=== PATIENT | female | born 1935 | race Caucasian/White ===

== ENCOUNTER 2018-08-07 16:49 | Emergency (ER) | payer MEDICARE, OTHER, SELFPAY ==
[2018-08-07 16:51] VITALS: BP 157/64; PULSE 82; RESP 16; TEMP 37.3; O2SAT 94; BMI 26.6
[2018-08-07 16:57] VITALS: BP 157/64; PULSE 82; RESP 16; TEMP 37.3; O2SAT 94
--- NOTE | 2018-08-07 17:17 | ED.VISSUMM ---
- ER Visit Summary Date of Service: 08/07/18 Chief Complaint: Cough, congestion and generalized weakness History of Present Illness: The patient is a 82 F history of prior A. fib not on blood thinners. Patient states for the last several days since Friday she has had a cough and congestion. States the cough is nonproductive. She has had a fever as high as 101 and chills. She denies any nausea, vomiting or diarrhea. No dysuria. No cloudy or bloody urine. States she is able to eat and drink but feels dehydrated. Denies any abdominal pain. States she did get influenza vaccine this year. Physical Examination: Older female no acute distress. Vital signs are stable. Currently her temperature is 997. Her pulse ox 94% on room air no signs of hypoxia. H EENT exam mildly dry mucous membranes. Thick secretions. Posterior pharynx unremarkable. TMs normal. No facial droop. Neck nontender. No lymphadenopathy. No meningismus. Lungs dry coarse breath sounds bilaterally. Dry cough. No rales or rhonchi or wheezing. Heart regular rhythm rate about 80. No murmur. Abdomen soft and nontender. Normal bowel sounds no peritoneal signs. Extremities moving all 4. Neurovascular intact. Calves are nontender without edema or cords. Neurologically she is awake alert with no focal motor deficits. Skin is unremarkable. No petechiae or purpura. No rashes. Test Results: CBC normal white count 11.8. Hemoglobin 13. Electrolytes unremarkable gap of 9. Creatinine 0.9. Influenza test negative. Two-view chest x-ray read both by myself and radiologist shows no acute abnormality. No infiltrate. Emergency Department Course and Treatment: Treated with IV fluids. HEENT exam patient's no significant change at 1830. Went over all of her test results. She will be started on Zithromax for possible bronchitis. Treatment Plan: Fluids and rest. Tylenol for fever. Zithromax daily for 4 more days start tomorrow. Follow-up with your doctor. Return if worse. Disposition: Discharge Impression: Acute bronchitis This note was generated with [employer] dictation software. It may contain incorrect words, spelling, and punctuation that were not noted in review of the chart prior to signing ED Disposition - Plan for ED Patient: Chief Complaint: General Illness Referrals: Antonio Garsia DO [Primary Care Provider] -
[2018-08-07] MEDS: 0.9% Normal Saline 1,000 ML 1000 ML IV (17:26)
--- NOTE | 2018-08-07 17:30 | RAD_ITS ---
STUDY: X-RAY CHEST REASON FOR EXAM: Female, 82 years old. Cough and weakness TECHNIQUE: PA and lateral COMPARISON: December 06, 2013. FINDINGS: Minor scarring at the left lung base. No acute infiltration. There is no demonstrated pleural abnormality. Normal size heart. Normal mediastinum and ruben. Normal visualized pulmonary arteries. Mildly calcified aortic arch and descending thoracic aorta. Normal visualized thoracic spine. Normal visualized ribs, clavicles, and shoulders. There is no demonstrated abnormality of the visualized soft tissue structures of the upper abdomen. No significant change since prior exam RAD/Chest PA and Lateral IMPRESSION: No acute cardiopulmonary pathology Electronically Signed: Willie Coppola MD at 18:11 EST , Service support ,
[2018-08-07 17:36] LABS: Absolute Lymphocyte Count 1.24 X10^3/ul (0.83-4.51); Absolute Neutrophil Count 9.4 X10^3/uL (2.0-7.7); Anion Gap 9 (5-15); BUN 14 mg/dL (7-18); BUN/Creat Ratio 14.3 RATIO (10-20); Basophil# 0.03 X10^3/uL; Basophil% 0.3 % (0-1); Calcium,Total 8.9 mg/dL (8.5-10.1); Chloride 100 mmol/L (98-107); Creatinine, Serum 0.98 mg/dL (0.55-1.02); EST Glomerular Filtration Rate 58 mL/min (>60); Eosinophil# 0.09 X10^3/uL; Eosinophils% 0.8 % (0-5); Est Glom Filt Rate - Afr Amer 70 mL/min (>60); Estimated Creatinine Clearance 44.52 ml/min; Glucose 117 mg/dL (74-106); Hematocrit 41.1 % (37-47); Hemoglobin 13.1 g/dl (12.0-15.0); Lymphocyte # 1.24 X10^3/ul (4.0); Lymphocyte % 10.5 % (19-41); Mean Corp Hgb Conc 31.9 g/gl (32-36); Mean Corpuscular Volume 84.7 fL (81-99); Mean Platelet Vol. 9.6 fl (6.2-12.0); Monocyte# 1.05 X10^3/uL; Monocyte% 8.9 % (0-10); Neutrophil # 9.36 X10^3/uL (2.7-7.7); Neutrophil % 79.4 % (47-70); Platelet Count 291 K/mm3 (150-450); Potassium 3.9 mmol/L (3.5-5.1); RBC Distribution Width CV 14.2 % (11.6-14.6); RBC Distribution Width SD 43.6 fl (35.1-43.9); Red Blood Count 4.85 M/mm3 (4.2-5.4); Sodium Level 138 mmol/L (136-145); White Blood Count 11.8 K/mm3 (4.4-11.0)
[2018-08-07 17:39] LABS: POSITIVE COUNT NO; POSITIVE DIFFERENTIAL NO; POSITIVE MORPHOLOGY NO
--- NOTE | 2018-08-07 18:34 | ED.DEP ---
ED Disposition - Plan for ED Patient: Disposition: Home or Assisted Living Chief Complaint: General Illness Instructions: Acute Bronchitis Prescriptions: Azithromycin [Zithromax] 250 mg PO DAILY #4 tab Referrals: Antonio Garsia DO [Primary Care Provider] - 3-5 Days if not improving Additional Instructions: Plenty of fluids and rest. Tylenol for fever. Zithromax 1 pill a day for 4 more days starting tomorrow. Return if feeling worse. Follow-up with your doctor.
[2018-08-07] MEDS: Acetaminophen 500 MG Tablet 1000 MG PO (18:35)
[2018-08-07 18:36] VITALS: BP 166/71; PULSE 78; RESP 18; TEMP 37.7; O2SAT 94
[2018-08-07] MEDS: Azithromycin 250 MG Tablet 500 MG PO (19:02)
[2018-08-07 19:08] VITALS: BP 171/46; PULSE 81; RESP 20; TEMP 37.7; O2SAT 94
[2018-08-07 20:22] VITALS: BP 168/67; PULSE 82; RESP 21; O2SAT 95
== END 2018-08-07 20:24 | disposition home or self-care (01) ==
PROVIDERS: Emergency Provider Emergency Medicine; PCP Family Medicine
DX: J20.9 Acute bronchitis, unspecified (principal); I48.91 Unspecified atrial fibrillation; Z79.82 Long term (current) use of aspirin; Z79.899 Other long term (current) drug therapy
CPT/HCPCS: 71046; 80048; 85025; 87804; 96360; 96361; 99285; J7030; A4216

== ENCOUNTER 2018-08-09 08:51 | Inpatient (IN) | payer MEDICARE, OTHER, SELFPAY ==
[2018-08-09] VITALS (21 sets, daily range): BP systolic 140–201; BP diastolic 4–75; PULSE 82–97; RESP 16–22; TEMP 36.8–38.6; O2SAT 91–96; BMI 27.9; BMI 26.7; BMI 26.8
--- NOTE | 2018-08-09 09:03 | EKG12_ITS ---
Test Reason : SOB Blood Pressure : / mmHG Vent. Rate : 092 BPM Atrial Rate : 092 BPM P-R Int : 166 ms QRS Dur : 090 ms QT Int : 330 ms P-R-T Axes : 039 021 044 degrees QTc Int : 408 ms Normal sinus rhythm Nonspecific ST and T wave abnormality Abnormal ECG Confirmed by BRITTNY LARA, IRWIN ([id number]), avid editor MARV MARINELLI ([id number]) on 08/11/2018 9:14:04 AM Referred By: MIRYAM Confirmed By:IRWIN MART MD
--- NOTE | 2018-08-09 09:06 | ED.VISSUMM ---
- ER Visit Summary Date of Service: 08/09/18 Chief Complaint: [] Body aches harsh cough sore throat decreased p.o. intake since seen Friday History of Present Illness: The patient is a 82 F [] history of A. fib on digoxin, reports she developed body aches sore throat harsh cough, symptoms persisted she was seen Friday in the emergency department workup was generally negative, indicates she had flu vaccination, indicates for the last 24 hours she has had worsening cough shortness of breath sore throat where she cannot take much by mouth she is debilitated in bed from the fever and the body aches presents for evaluation, no diarrhea or constipation normal urinary habits no skin rashes Physical Examination: [] 190/70, 91% room air, 99 temp General, no distress resting comfortably HEENT is generally unremarkable The neck is supple no adenopathy Cardiovascular, regular rate and rhythm Lungs, clear bilateral Abdomen, soft nontender Extremities, no clubbing cyanosis or edema Neurologic, awake alert answering questions appropriately moving all 4 extremities Test Results: [] Emergency Department Course and Treatment: [] Given her complaints screening labs IV fluids, the patient studies are all generally unremarkable except for a white count of 17,000, the respiratory viral panel is not available yet, the flu screen rapid and strep screen rapid were negative she received IV fluid fever control she continues to complain of diffuse body aches does not believe she can function at home given all the above have asked the hospital see her further management additionally she did try outpatient management which has failed Treatment Plan: [] Disposition: [] Home stable Impression: [] Influenza type illness, harsh cough diffuse body aches failed outpatient therapy This note was generated with [employer] dictation software. It may contain incorrect words, spelling, and punctuation that were not noted in review of the chart prior to signing ED Disposition - Plan for ED Patient: Chief Complaint: Shortness of Breath Referrals: Antonio Garsia DO [Primary Care Provider] -
--- NOTE | 2018-08-09 09:10 | RAD_ITS ---
STUDY: X-RAY CHEST REASON FOR EXAM: Female, 82 years old. Fever and body aches TECHNIQUE: AP COMPARISON: 08/07/2018 FINDINGS: EKG leads project over the chest. The lungs are clear and expanded. There is no demonstrated pleural abnormality. Normal size heart. Normal mediastinum and ruben. Normal visualized pulmonary arteries. There is atherosclerotic calcification of the aortic arch with tortuosity. No acute bony process. There is no demonstrated abnormality of the visualized soft tissue structures of the upper abdomen. RAD/Chest 1 View (Portable) IMPRESSION: 1. No acute cardiopulmonary process Electronically Signed: Bal Jade MD at 9:26 EST , Service support ,
[2018-08-09] MEDS: Acetaminophen 500 MG Tablet 1000 MG PO (09:22)
[2018-08-09] MEDS: Ipratropium/Albuterol Sulfate 3 ML AMPUL.NEB INHALATION ×3 (09:23→19:12)
[2018-08-09 09:29] LABS: Absolute Lymphocyte Count 1.48 X10^3/ul (0.83-4.51); Absolute Neutrophil Count 14.6 X10^3/uL (2.0-7.7); Basophil# 0.04 X10^3/uL; Basophil% 0.2 % (0-1); Differential Indicated SCAN CRITERIA MET; Eosinophil# 0.17 X10^3/uL; Eosinophils% 0.9 % (0-5); Hematocrit 41.6 % (37-47); Hemoglobin 13.6 g/dl (12.0-15.0); Lymphocyte # 1.48 X10^3/ul (4.0); Lymphocyte % 8.3 % (19-41); Mean Corp Hgb Conc 32.7 g/gl (32-36); Mean Corpuscular Hgb 27.5 pg (27.0-32.0); Mean Platelet Vol. 9.3 fl (6.2-12.0); Monocyte# 1.56 X10^3/uL; Monocyte% 8.7 % (0-10); Neutrophil # 14.62 X10^3/uL (2.7-7.7); Neutrophil % 81.7 % (47-70); POSITIVE COUNT NO; POSITIVE DIFFERENTIAL YES; POSITIVE MORPHOLOGY NO; Platelet Count 286 K/mm3 (150-450); RBC Distribution Width CV 14.4 % (11.6-14.6); RBC Distribution Width SD 44.4 fl (35.1-43.9); Red Blood Count 4.95 M/mm3 (4.2-5.4); White Blood Count 17.9 K/mm3 (4.4-11.0)
[2018-08-09 09:36] LABS: Anion Gap 12 (5-15); BUN 14 mg/dL (7-18); BUN/Creat Ratio 14.8 RATIO (10-20); Calcium,Total 9.2 mg/dL (8.5-10.1); Chloride 99 mmol/L (98-107); Creatinine, Serum 0.95 mg/dL (0.55-1.02); EST Glomerular Filtration Rate 60 mL/min (>60); Est Glom Filt Rate - Afr Amer 73 mL/min (>60); Estimated Creatinine Clearance 45.93 ml/min; Glucose 115 mg/dL (74-106); Potassium 3.8 mmol/L (3.5-5.1); Sodium Level 138 mmol/L (136-145)
[2018-08-09 09:59] LABS: BNP,B-Type NATRIURETIC PEPTIDE 197.1 pg/mL (0-100)
[2018-08-09 10:44] LABS: Digoxin Level 0.62 ng/mL (0.80-2.00)
[2018-08-09 10:50] LABS: Bacteria 0 SEEN /hpf (None Seen); Mucous, Urine 0 SEEN /hpf (<or=2+)
[2018-08-09 11:05] LABS: Color, Urine Yellow (Yellow); Glucose, Dipstick Normal (Normal); Ketone-Dipstick 15 mg/dl (Negative); Leukocyte Esterase-Dipstick 100 /ul (Negative); Nitrite-Dipstick Negative (Negative); Occult Blood-Urine 10 /ul (Negative); Protein-Dipstick 15 mg/dl (Negative); Urine Bilirubin Dipstick Negative (Negative); Urine Clarity Sl. Cloudy (Clear); Urine Urobilinogen Normal (Normal)
[2018-08-09 11:16] LABS: Red Blood Cells-Urine 0-5 SEEN /hpf (0-5); Squamous Epithelial Cells - UA 0-5 SEEN /hpf (5-10); White Blood Cells 10-25 SEEN /hpf (0-5)
--- NOTE | 2018-08-09 11:18 | NURSING ---
DR SYEDA SMALLWOOD
--- NOTE | 2018-08-09 11:25 | NURSING ---
MED SURG INFLUENZA TYPE ILLNESS, HARSH COUGH, FAILED OP THEREPY SEMENTI OBS
--- NOTE | 2018-08-09 12:30 | NURSING ---
call from [facility] reporting respiratory panel positive for RSV-B. primary RN and MD notified
[2018-08-09 13:20] LABS: CPK Total, Creatine Kinase 98 U/L (26-192)
[2018-08-09] MEDS: Metoprolol(XL)Succ 25 MG Tablet PO (14:10)
[2018-08-09] MEDS: Digoxin 125 MCG Tablet PO (14:10)
[2018-08-09] MEDS: Aspirin 81 MG TAB.CHEW PO (14:10)
[2018-08-09] MEDS: Pantoprazole Sodium 40 MG Tablet PO (14:10)
[2018-08-09] MEDS: guaiFENesin Dm 10 ML UDC PO (15:01)
[2018-08-09] MEDS: Acetaminophen 325 MG Tablet 650 MG PO (15:39)
--- NOTE | 2018-08-09 18:14 | HP.PCM_ITS ---
History of Present Illness Date of Admission: 08/09/18 Chief Complaint: Myalgias, sore throat, cough, rhinorrhea The patient is a 82 year old F with a past medical history of hypertension, paroxysmal atrial fibrillation and frequent ventricular ectopy presented to the emergency department at [facility] on 08/09/2018 complaining of cough, rhinorrhea, myalgias and arthralgias and sore throat. No signs of presentation to the emergency room are temperature 99, pulse rate 88, blood pressure 197/70, respiratory rate 22 and she was 91% saturated. She was 94% on a 2 L nasal cannula. White blood cell count was elevated at 17.9 with a left shift. Hemoglobin is 13.6 and the platelets are within normal limits. Electrolytes are within normal limits and the BUN is 14 with a creatinine of 0.95. Actiq acid is 1.0. Protein was less than 0.015 and the total creatine kinase is 98. UA shows no infiltrates, pulmonary vascular congestion or pleural effusions. Strep is negative. Panel is positive for RSV B. Show 10-25 white blood cells bacteria. It was nitrite negative. Dig level was 0.62. To the hospital with a diagnosis of acute viral syndrome secondary to RSV B infection. Past Medical History Past Medical History (Chronic Problems): Chronic Problems Ventricular ectopy (Chronic) Paroxysmal atrial fibrillation (Chronic) Hypertension (Chronic) Allergies bee venom protein (honey bee) Allergy (Verified 08/09/18 08:57) Anaphylaxis also wasps latex Allergy (Verified 08/09/18 08:57) Rash Penicillins Allergy (Verified 08/09/18 08:57) Rash Home Medications: Ambulatory Orders Medication Instructions Recorded Aspirin [Aspirin, Baby] 81 mg PO DAILY@0800 12/06/13 Cholecalciferol (Vitamin D3) 2,000 unit PO DAILY 12/06/13 [Vitamin D] Digoxin [Digox] 125 mcg PO DAILY 12/06/13 Metoprolol(XL)Succ [Toprol Xl 25 mg PO DAILY 12/06/13 (Beta Vishal)] Multivitamins,Therapeutic 1 tablet PO DAILY 12/06/13 [Multivitamin] Pantoprazole Sodium [Protonix] 40 mg PO DAILY 12/06/13 Melatonin 10 mg PO QHS 01/15/17 Azithromycin [Zithromax] 250 mg PO DAILY #4 tab 08/07/18 [place]-3 Fatty Acids [Fish Oil] 500 mg PO DAILY 08/09/18 Surgical History: cataract - Bilateral, hysterectomy - With bilateral salpingo- oophorectomy, - - Surgery on the left knee to repair a torn meniscus and fractured tibial plateau Psychiatric History: No pertinent psych hx [employer] History: - - She had a remote ectopic and ovarian cysts and subsequently underwent a total hysterectomy Lives: Spouse/ Significant Other Smoking Status: Never smoker Tobacco Use: Non-smoker Alcohol: Rare Drugs: None - *Family History Maternal History Items: No pertinent history Review of Systems Constitutional: Reports: Anorexia, Malaise, Fatigue. Denies: Chills, Fever, Weight Change Eyes: Denies: Blurred vision, Redness HEENT: Reports: Head Aches, Post Nasal Drip, Sore Throat, - - Clear rhinorrhea. Denies: Sinus Congestion, Sinus Drainage Cardiovascular: Denies: Chest Pain, Heaviness, Light Headedness, Palpitations Respiratory: Reports: Cough, Shortness of breath at rest. Denies: Hemoptysis, Pleuritic Pain, Sputum production Gastrointestinal: Denies: Abdominal Pain, Diarrhea, Nausea, Vomiting Genitourinary: Denies: Dysuria Musculoskeletal: Reports: Joint Pain, Joint Tenderness. Denies: Joint swelling, Neck Pain Skin: Denies: Jaundice, Rash, Wounds Neurological: Denies: Numbness, Tingling, Focal weakness Psychiatric: Denies: Anxiety, Depression, Homicidal Ideations, Suicidal Ideations Endocrine: Denies: Change in Body Habitus Hematologic/ Lymphatic: Denies: Easy Bruising, Easy Bleeding, Hx of blood clot VTE Information - Inpt Only VTE Present on Admission: No VTE Mechan Device Prophylaxis: SCD's, Knee High [place] Hose VTE Pharm Prophylaxis ordered?: Yes - Physical Exam General: Alert, Oriented x3, Cooperative, Well developed, Well nourished HEENT: Atraumatic, PERRLA, EOMI, Normocephalic Oral: Dry Mucosa Neck: Supple, No JVD, Negative Carotid Bruits Lungs: Clear to auscultation, Normal air movement Cardiovascular: Regular rate, Regular Rhythm, Normal S1, Normal S2, No murmurs, No rub noted, No Gallop Abdomen: Bowel Sounds Present, Soft, Non Tender, Non-Distended Extremities: No clubbing, No cyanosis, No edema, Capillary Refill Less than 3 Seconds, Peripheral Pulses Normal Skin: No rashes, No breakdown Musculoskeletal: - - No red, swollen or warm to touch joints Neurological: Cranial nerves II-XII grossly intact, Neuro grossly intact Psych/Mental Status: Normal Affect, Appropriate Vital Signs Temp Pulse Resp BP Pulse Ox 100.4 F H 92 22 H 156/66 H 96 08/09/18 15:13 08/09/18 15:43 08/09/18 13:33 08/09/18 12:44 08/09/18 13:33 Oxygen Flow Rate (L/min) 2 Oxygen Delivery Method Nasal Cannula Weight: 171 lb Body Mass Index (BMI) 26.7 Finger Stick Blood Glucose 121 Intake and Output for Last 24 Hours 08/07/18 08/08/18 08/09/18 23:59 23:59 23:59 Intake Total 500 / 500 Balance 500 / 500 Microbiology Past 72 Hours 08/09/18 09:20 Respiratory Panel (PCR) - Final Mucosa - Nose 08/09/18 09:20 Group A Streptococcus Rapid Screen - Preliminary Mucosa - Throat 08/09/18 09:20 Influenza Types A,B Direct FA (VIK) - Final Mucosa - Nose Laboratory Tests Past 24 Hrs 08/09/18 08/09/18 08/09/18 09:10 09:10 09:10 WBC 17.9 H RBC 4.95 Hgb 13.6 Hct 41.6 MCV 84.0 MCH 27.5 MCHC 32.7 RDW 14.4 RDW Differential 44.4 H Plt Count 286 MPV 9.3 Immature Gran % (Auto) 0.200 Neut % (Auto) 81.7 H Lymph % (Auto) 8.3 L [place] % (Auto) 8.7 Eos % (Auto) 0.9 Baso % (Auto) 0.2 Absolute Neuts (auto) 14.6 H Absolute Lymphs (auto) 1.48 Total Counted Not Reportable Diff Path Review May foll Sodium 138 Potassium 3.8 Chloride 99 Carbon Dioxide 27.0 Anion Gap 12 BUN 14 Creatinine 0.95 Estim Creat Clear Calc 45.93 Est GFR (MDRD) Af Amer 73 Est GFR (MDRD) Non-Af 60 BUN/Creatinine Ratio 14.8 Glucose 115 H Lactic Acid Calcium 9.2 Total Creatine Kinase Troponin I < 0.015 B-Natriuretic Peptide 197.1 H Urine Color Urine Clarity Urine pH Ur Specific [place] Urine Protein Urine Glucose (UA) Urine Ketones Urine Occult Blood Urine Nitrite Urine Bilirubin Urine Urobilinogen Ur Leukocyte Esterase Urine RBC Urine WBC Ur Squamous Epith Cells Urine Bacteria Urine Mucus Digoxin 08/09/18 08/09/18 08/09/18 09:10 10:45 12:45 WBC RBC Hgb Hct MCV MCH MCHC RDW RDW Differential Plt Count MPV Immature Gran % (Auto) Neut % (Auto) Lymph % (Auto) [place] % (Auto) Eos % (Auto) Baso % (Auto) Absolute Neuts (auto) Absolute Lymphs (auto) Total Counted Diff Path Review Sodium Potassium Chloride Carbon Dioxide Anion Gap BUN Creatinine Estim Creat Clear Calc Est GFR (MDRD) Af Amer Est GFR (MDRD) Non-Af BUN/Creatinine Ratio Glucose Lactic Acid Calcium Total Creatine Kinase 98 Troponin I B-Natriuretic Peptide Urine Color Yellow Urine Clarity Sl. Cloudy Urine pH 6.0 Ur Specific [place] 1.010 Urine Protein 15 H Urine Glucose (UA) Normal Urine Ketones 15 H Urine Occult Blood 10 H Urine Nitrite Negative Urine Bilirubin Negative Urine Urobilinogen Normal Ur Leukocyte Esterase 100 H Urine RBC 0-5 SEEN Urine WBC 10-25 SEEN Ur Squamous Epith Cells 0-5 SEEN Urine Bacteria 0 SEEN Urine Mucus 0 SEEN Digoxin 0.62 L 08/09/18 12:45 WBC RBC Hgb Hct MCV MCH MCHC RDW RDW Differential Plt Count MPV Immature Gran % (Auto) Neut % (Auto) Lymph % (Auto) [place] % (Auto) Eos % (Auto) Baso % (Auto) Absolute Neuts (auto) Absolute Lymphs (auto) Total Counted Diff Path Review Sodium Potassium Chloride Carbon Dioxide Anion Gap BUN Creatinine Estim Creat Clear Calc Est GFR (MDRD) Af Amer Est GFR (MDRD) Non-Af BUN/Creatinine Ratio Glucose Lactic Acid 1.0 Calcium Total Creatine Kinase Troponin I B-Natriuretic Peptide Urine Color Urine Clarity Urine pH Ur Specific [place] Urine Protein Urine Glucose (UA) Urine Ketones Urine Occult Blood Urine Nitrite Urine Bilirubin Urine Urobilinogen Ur Leukocyte Esterase Urine RBC Urine WBC Ur Squamous Epith Cells Urine Bacteria Urine Mucus Digoxin Assessment/Plan All Active Problems Dehydration (Acute) Elevated serum creatinine (Acute) Syncope (Acute) Sessions 1. Acute viral syndrome secondary to RSV B infection 2. Leukocytosis-significance questionable. May be secondary to stress. Pneumonia on the chest x-ray. Patient has white blood cells in her urine but this is a clean-catch urine and she is asymptomatic. There was no bacteria and it was nitrite negative. 3. History of paroxysmal atrial fibrillation 4. Hypertension rocephin 1 g IV daily - recheck the CBC in the AM and if the leukocytosis has resolved will DC the antibiotic. Throat culture sent Ibuprofen and Tylenol for headache and muscle pain Aerosols every 6 hours because she tells me tht she felt better in the ED after an aerosol BUT, per the ED doc's note her lungs were CTA Lovenox, SCDs and [place] hose for DVT prophylaxis Robitussin-DM as needed dry cough Guaifenesin 1200 mg p.o. twice daily Recheck lab in the a.m. Code Visit OBSV E&M: [id number] Initial observation care L2
[2018-08-09] MEDS: Ibuprofen 600 MG Tablet PO (18:19)
[2018-08-09] MEDS: MELATONIN 10 MG TABLET PO (21:54)
[2018-08-09] MEDS: guaiFENesin 1,200 MG Tablet 1200 MG PO (21:54)
[2018-08-10] VITALS (16 sets, daily range): BP systolic 118–154; BP diastolic 61–81; PULSE 73–109; RESP 16–18; TEMP 36.8–37.1; O2SAT 91–96
[2018-08-10] MEDS: Ibuprofen 600 MG Tablet PO ×3 (04:22→18:04)
[2018-08-10] MEDS: guaiFENesin Dm 10 ML UDC PO (04:23)
[2018-08-10] MEDS: Ipratropium/Albuterol Sulfate 3 ML AMPUL.NEB INHALATION ×3 (07:10→19:14)
[2018-08-10 08:00] LABS: Absolute Lymphocyte Count 2.49 X10^3/ul (0.83-4.51); Absolute Neutrophil Count 12.6 X10^3/uL (2.0-7.7); Basophil# 0.03 X10^3/uL; Basophil% 0.2 % (0-1); Eosinophil# 0.06 X10^3/uL; Eosinophils% 0.4 % (0-5); Hematocrit 38.5 % (37-47); Hemoglobin 12.3 g/dl (12.0-15.0); Lymphocyte # 2.49 X10^3/ul (4.0); Mean Corp Hgb Conc 31.9 g/gl (32-36); Mean Corpuscular Hgb 26.6 pg (27.0-32.0); Mean Corpuscular Volume 83.3 fL (81-99); Mean Platelet Vol. 9.3 fl (6.2-12.0); Monocyte# 1.44 X10^3/uL; Monocyte% 8.7 % (0-10); Neutrophil # 12.56 X10^3/uL (2.7-7.7); Neutrophil % 75.6 % (47-70); POSITIVE COUNT NO; POSITIVE DIFFERENTIAL NO; POSITIVE MORPHOLOGY NO; Platelet Count 241 K/mm3 (150-450); RBC Distribution Width CV 14.4 % (11.6-14.6); RBC Distribution Width SD 44.2 fl (35.1-43.9); Red Blood Count 4.62 M/mm3 (4.2-5.4); White Blood Count 16.6 K/mm3 (4.4-11.0)
[2018-08-10] MEDS: Multivitamins,Therapeutic Tablet 1 TABLET PO (08:30)
[2018-08-10] MEDS: Aspirin 81 MG TAB.CHEW PO (08:36)
--- NOTE | 2018-08-10 08:43 | PCM.PN.HOSP ---
Subjective: Feels a little better, but is still coughing. No fevers, chills. No issues overnight Vitals/I&O's: Vital Signs Temp Pulse Resp BP Pulse Ox 98.6 F 82 16 154/81 H 91 08/10/18 04:15 08/10/18 07:10 08/10/18 07:10 08/10/18 04:15 08/10/18 07:10 Oxygen Flow Rate (L/min) 2 Oxygen Delivery Method Room Air Weight: 171 lb Body Mass Index (BMI) 26.7 Finger Stick Blood Glucose 121 Intake and Output for Last 24 Hours 08/08/18 08/09/18 08/10/18 23:59 23:59 23:59 Intake Total 800 / 800 240 / 240 Balance 800 / 800 240 / 240 General: Alert, Oriented x3, Cooperative, No apparent distress HEENT: Atraumatic, EOMI, Normocephalic Oral: Moist Mucosa Neck: Supple, No JVD Lungs: Clear to auscultation, Normal air movement, No rhonchi, No wheeze, No rales, Diminished Cardiovascular: Regular rate, Regular Rhythm, Normal S1, Normal S2, No murmurs, No rub noted, No Gallop Abdomen: Soft, Non Tender, Non-Distended, No Hepato-splenomegaly Extremities: No edema, Capillary Refill Less than 3 Seconds Skin: No rashes, No breakdown Neurological: Neuro grossly intact, Sensory exam intact to light touch and pain Psych/Mental Status: Normal Affect, Appropriate Microbiology Past 72 Hours 08/09/18 09:20 Mucosa - Nose Respiratory Panel (PCR) - Final 08/09/18 09:20 Mucosa - Throat Group A Streptococcus Rapid Screen - Preliminary 08/09/18 09:20 Mucosa - Nose Influenza Types A,B Direct FA (VIK) - Final Laboratory Results 08/09/18 09:10: WBC 17.9 H, RBC 4.95, Hgb 13.6, Hct 41.6, MCV 84.0, MCH 27.5, MCHC 32.7, RDW 14.4, RDW Differential 44.4 H, Plt Count 286, MPV 9.3, Immature Gran % (Auto) 0.200, Neut % (Auto) 81.7 H, Lymph % (Auto) 8.3 L, [place] % (Auto) 8.7, Eos % (Auto) 0.9, Baso % (Auto) 0.2, Absolute Neuts (auto) 14.6 H, Absolute Lymphs (auto) 1.48, Total Counted Not Reportable, Diff Path Review December08/09/18 09:10: Sodium 138, Potassium 3.8, Chloride 99, Carbon Dioxide 27.0, Anion Gap 12, BUN 14, Creatinine 0.95, Estim Creat Clear Calc 45.93, Est GFR (MDRD) Af Amer 73, Est GFR (MDRD) Non-Af 60, BUN/Creatinine Ratio 14.8, Glucose 115 H, Calcium 9.2, Troponin I < 0.015 08/09/18 09:10: B-Natriuretic Peptide 197.1 H 08/09/18 09:10: Digoxin 0.62 L 08/09/18 10:45: Urine Color Yellow, Urine Clarity Sl. Cloudy, Urine pH 6.0, Ur Specific [place] 1.010, Urine Protein 15 H, Urine Glucose (UA) Normal, Urine Ketones 15 H, Urine Occult Blood 10 H, Urine Nitrite Negative, Urine Bilirubin Negative, Urine Urobilinogen Normal, Ur Leukocyte Esterase 100 H, Urine RBC 0-5 SEEN, Urine WBC 10-25 SEEN, Ur Squamous Epith Cells 0-5 SEEN, Urine Bacteria 0 SEEN, Urine Mucus 0 SEEN 08/09/18 12:45: Total Creatine Kinase 98 08/09/18 12:45: Lactic Acid 1.0 08/10/18 07:50: WBC 16.6 H, RBC 4.62, Hgb 12.3, Hct 38.5, MCV 83.3, MCH 26.6 L, MCHC 31.9 L, RDW 14.4, RDW Differential 44.2 H, Plt Count 241, MPV 9.3, Immature Gran % (Auto) 0.100, Neut % (Auto) 75.6 H, Lymph % (Auto) 15.0 L, [place] % (Auto) 8.7, Eos % (Auto) 0.4, Baso % (Auto) 0.2, Absolute Neuts (auto) 12.6 H, Absolute Lymphs (auto) 2.49, Total Counted Not Reportable Current Medications Acetaminophen (Tylenol) 650 mg PO Q4H PRN PRN PRN Reason: FEVER Last Admin: 08/09/18 15:39 Dose: 650 mg Albuterol Sulfate (Ventolin Aerosols) 2.5 mg INHALATION Q2H PRN PRN Reason: WHEEZING Albuterol/Ipratropium (Duoneb) 3 ml INHALATION Q6HWA.RT [facility] Last Admin: 08/10/18 07:10 Dose: 3 ml Aspirin (Aspirin, Baby) 81 mg PO DAILY@0800 [facility] Last Admin: 08/10/18 08:36 Dose: 81 mg Cholecalciferol (Vitamin D) 2,000 unit PO DAILY [facility] Digoxin (Lanoxin) 125 mcg PO DAILY [facility] Last Admin: 08/09/18 14:10 Dose: 125 mcg Enoxaparin Sodium (Lovenox) 40 mg SC DAILY@1000 [facility] Guaifenesin (Mucinex) 1,200 mg PO BID [facility] Last Admin: 08/09/18 21:54 Dose: 1,200 mg Guaifenesin (Robitussin Dm) 5 - 10 ml PO Q4H PRN PRN Reason: COUGH Last Admin: 08/10/18 04:23 Dose: 10 ml Sodium Chloride () 500 mls @ 999 mls/hr IV .Q31M ONE Last Admin: 08/09/18 09:23 Dose: 999 mls/hr Ceftriaxone Sodium (Rocephin) 1 gm in 50 mls @ 100 mls/hr IV Q24 [facility] Ibuprofen (Motrin) 600 mg PO Q6H PRN PRN PRN Reason: MILD PAIN (1-3/10) Last Admin: 08/10/18 04:22 Dose: 600 mg Magnesium Hydroxide (Milk Of Magnesia) 30 ml PO DAILY PRN PRN PRN Reason: Constipation Melatonin (Melatonin) 10 mg PO QHS [facility] Last Admin: 08/09/18 21:54 Dose: 10 mg Metoprolol Succinate (Toprol Xl (Beta Vishal)) 25 mg PO DAILY [facility] Last Admin: 08/09/18 14:10 Dose: 25 mg [facility]ivit[facility] ([facility]ivitamin) [facility] Last Admin: 08/10/18 08:30 Dose: 1 tablet Nutritional Formula (Lactose Free) (Ensure Enlive) 120 ml PO 4X/DAY [facility] Last Admin: 08/09/18 21:54 Dose: 120 ml Pantoprazole Sodium (Protonix) 40 mg PO DAILY [facility] Last Admin: 08/09/18 14:10 Dose: 40 mg Sodium Chloride () 5 - 15 ml IV UD PRN PRN Reason: SALINE FLUSH Medical Necessity - Tobacco Use Smoking Status: Never smoker Tobacco Use: Non-smoker Assessment/Plan All Active Problems Dehydration (Acute) Elevated serum creatinine (Acute) Syncope (Acute) 1. Acute viral syndrome secondary to RSV B infection/leukocytosis -No pneumonia evident on chest x-ray -Afebrile, leukocytosis has improved slightly from 17.9 on admission to 16.6 -She is currently on Rocephin given her leukocytosis, we will switch to Levaquin for atypical coverage -Continue with breathing treatments, which she states help -Continue with Mucinex 2. Paroxysmal A. fib/hypertension -Currently stable, on aspirin -Continue with metoprolol 3. GERD -Stable -Continue with PPI DVT: Lovenox Code Visit Inpatient E&M: 80844 Subs Hosp L2
--- NOTE | 2018-08-10 08:52 | PN_ITS ---
Subjective: Feels a little better, but is still coughing. No fevers, chills. No issues overnight Vitals/I&O's: Vital Signs Temp Pulse Resp BP Pulse Ox 98.6 F 82 16 154/81 H 91 08/10/18 04:15 08/10/18 07:10 08/10/18 07:10 08/10/18 04:15 08/10/18 07:10 Oxygen Flow Rate (L/min) 2 Oxygen Delivery Method Room Air Weight: 171 lb Body Mass Index (BMI) 26.7 Finger Stick Blood Glucose 121 Intake and Output for Last 24 Hours 08/08/18 08/09/18 08/10/18 23:59 23:59 23:59 Intake Total 800 / 800 240 / 240 Balance 800 / 800 240 / 240 General: Alert, Oriented x3, Cooperative, No apparent distress HEENT: Atraumatic, EOMI, Normocephalic Oral: Moist Mucosa Neck: Supple, No JVD Lungs: Clear to auscultation, Normal air movement, No rhonchi, No wheeze, No rales, Diminished Cardiovascular: Regular rate, Regular Rhythm, Normal S1, Normal S2, No murmurs, No rub noted, No Gallop Abdomen: Soft, Non Tender, Non-Distended, No Hepato-splenomegaly Extremities: No edema, Capillary Refill Less than 3 Seconds Skin: No rashes, No breakdown Neurological: Neuro grossly intact, Sensory exam intact to light touch and pain Psych/Mental Status: Normal Affect, Appropriate Microbiology Past 72 Hours 08/09/18 09:20 Mucosa - Nose Respiratory Panel (PCR) - Final 08/09/18 09:20 Mucosa - Throat Group A Streptococcus Rapid Screen - Preliminary 08/09/18 09:20 Mucosa - Nose Influenza Types A,B Direct FA (VIK) - Final Laboratory Results 08/09/18 09:10: WBC 17.9 H, RBC 4.95, Hgb 13.6, Hct 41.6, MCV 84.0, MCH 27.5, MCHC 32.7, RDW 14.4, RDW Differential 44.4 H, Plt Count 286, MPV 9.3, Immature Gran % (Auto) 0.200, Neut % (Auto) 81.7 H, Lymph % (Auto) 8.3 L, [place] % (Auto) 8.7, Eos % (Auto) 0.9, Baso % (Auto) 0.2, Absolute Neuts (auto) 14.6 H, Absolute Lymphs (auto) 1.48, Total Counted Not Reportable, Diff Path Review December08/09/18 09:10: Sodium 138, Potassium 3.8, Chloride 99, Carbon Dioxide 27.0, Anion Gap 12, BUN 14, Creatinine 0.95, Estim Creat Clear Calc 45.93, Est GFR (MDRD) Af Amer 73, Est GFR (MDRD) Non-Af 60, BUN/Creatinine Ratio 14.8, Glucose 115 H, Calcium 9.2, Troponin I < 0.015 08/09/18 09:10: B-Natriuretic Peptide 197.1 H 08/09/18 09:10: Digoxin 0.62 L 08/09/18 10:45: Urine Color Yellow, Urine Clarity Sl. Cloudy, Urine pH 6.0, Ur Specific [place] 1.010, Urine Protein 15 H, Urine Glucose (UA) Normal, Urine Ketones 15 H, Urine Occult Blood 10 H, Urine Nitrite Negative, Urine Bilirubin Negative, Urine Urobilinogen Normal, Ur Leukocyte Esterase 100 H, Urine RBC 0-5 SEEN, Urine WBC 10-25 SEEN, Ur Squamous Epith Cells 0-5 SEEN, Urine Bacteria 0 SEEN, Urine Mucus 0 SEEN 08/09/18 12:45: Total Creatine Kinase 98 08/09/18 12:45: Lactic Acid 1.0 08/10/18 07:50: WBC 16.6 H, RBC 4.62, Hgb 12.3, Hct 38.5, MCV 83.3, MCH 26.6 L, MCHC 31.9 L, RDW 14.4, RDW Differential 44.2 H, Plt Count 241, MPV 9.3, Immature Gran % (Auto) 0.100, Neut % (Auto) 75.6 H, Lymph % (Auto) 15.0 L, [place] % (Auto) 8.7, Eos % (Auto) 0.4, Baso % (Auto) 0.2, Absolute Neuts (auto) 12.6 H, Absolute Lymphs (auto) 2.49, Total Counted Not Reportable Current Medications Acetaminophen (Tylenol) 650 mg PO Q4H PRN PRN PRN Reason: FEVER Last Admin: 08/09/18 15:39 Dose: 650 mg Albuterol Sulfate (Ventolin Aerosols) 2.5 mg INHALATION Q2H PRN PRN Reason: WHEEZING Albuterol/Ipratropium (Duoneb) 3 ml INHALATION Q6HWA.RT [facility] Last Admin: 08/10/18 07:10 Dose: 3 ml Aspirin (Aspirin, Baby) 81 mg PO DAILY@0800 [facility] Last Admin: 08/10/18 08:36 Dose: 81 mg Cholecalciferol (Vitamin D) 2,000 unit PO DAILY [facility] Digoxin (Lanoxin) 125 mcg PO DAILY [facility] Last Admin: 08/09/18 14:10 Dose: 125 mcg Enoxaparin Sodium (Lovenox) 40 mg SC DAILY@1000 [facility] Guaifenesin (Mucinex) 1,200 mg PO BID [facility] Last Admin: 08/09/18 21:54 Dose: 1,200 mg Guaifenesin (Robitussin Dm) 5 - 10 ml PO Q4H PRN PRN Reason: COUGH Last Admin: 08/10/18 04:23 Dose: 10 ml Sodium Chloride () 500 mls @ 999 mls/hr IV .Q31M ONE Last Admin: 08/09/18 09:23 Dose: 999 mls/hr Ceftriaxone Sodium (Rocephin) 1 gm in 50 mls @ 100 mls/hr IV Q24 [facility] Ibuprofen (Motrin) 600 mg PO Q6H PRN PRN PRN Reason: MILD PAIN (1-3/10) Last Admin: 08/10/18 04:22 Dose: 600 mg Magnesium Hydroxide (Milk Of Magnesia) 30 ml PO DAILY PRN PRN PRN Reason: Constipation Melatonin (Melatonin) 10 mg PO QHS [facility] Last Admin: 08/09/18 21:54 Dose: 10 mg Metoprolol Succinate (Toprol Xl (Beta Vishal)) 25 mg PO DAILY [facility] Last Admin: 08/09/18 14:10 Dose: 25 mg Multivitamins (Multivitamin) [facility] Last Admin: 08/10/18 08:30 Dose: 1 tablet Nutritional Formula (Lactose Free) (Ensure Enlive) 120 ml PO 4X/DAY [facility] Last Admin: 08/09/18 21:54 Dose: 120 ml Pantoprazole Sodium (Protonix) 40 mg PO DAILY [facility] Last Admin: 08/09/18 14:10 Dose: 40 mg Sodium Chloride () 5 - 15 ml IV UD PRN PRN Reason: SALINE FLUSH Medical Necessity - Tobacco Use Smoking Status: Never smoker Tobacco Use: Non-smoker Assessment/Plan All Active Problems Dehydration (Acute) Elevated serum creatinine (Acute) Syncope (Acute) 1. Acute viral syndrome secondary to RSV B infection/leukocytosis -No pneumonia evident on chest x-ray -Afebrile, leukocytosis has improved slightly from 17.9 on admission to 16.6 -She is currently on Rocephin given her leukocytosis, we will switch to Levaquin for atypical coverage -Continue with breathing treatments, which she states help -Continue with Mucinex 2. Paroxysmal A. fib/hypertension -Currently stable, on aspirin -Continue with metoprolol 3. GERD -Stable -Continue with PPI DVT: Lovenox Code Visit Inpatient E&M: 73207 Subs Hosp L2
--- NOTE | 2018-08-10 10:02 | CASEMGMT ---
RN CM Assessment Presentation: myalgias, sore throat, cough, rhinorrhea. PCP:Dr. Salcido Preferred [facility]acy: [facility] Insurance: [facility] Prescription Benefit: yes LNOK: Frida Foster Living Arrangements: lives independently, one story. Transportation: no difficulties DME/HHC: independent in [place] PLAN: Home on discharge. No needs identified @ this time.
[2018-08-10] MEDS: Metoprolol(XL)Succ 25 MG Tablet PO (10:36)
[2018-08-10] MEDS: Pantoprazole Sodium 40 MG Tablet PO (10:36)
[2018-08-10] MEDS: Enoxaparin 40 MG/0.4 ML Syringe SC (10:36)
[2018-08-10] MEDS: levoFLOXacin 750 MG Tablet PO (10:36)
[2018-08-10] MEDS: guaiFENesin 1,200 MG Tablet 1200 MG PO ×2 (10:41→21:14)
[2018-08-10] MEDS: Digoxin 125 MCG Tablet PO (10:55)
[2018-08-10 11:51] LABS: Pathologist Review Reviewed
[2018-08-10] MEDS: MELATONIN 10 MG TABLET PO (21:14)
[2018-08-11] VITALS (16 sets, daily range): BP systolic 147–161; BP diastolic 68–71; PULSE 78–105; RESP 16–18; TEMP 36.8–37.1; O2SAT 93–95
[2018-08-11 06:52] LABS: Anion Gap 9 (5-15); BUN 15 mg/dL (7-18); Calcium,Total 9.1 mg/dL (8.5-10.1); Chloride 103 mmol/L (98-107); Creatinine, Serum 0.88 mg/dL (0.55-1.02); EST Glomerular Filtration Rate 65 mL/min (>60); Est Glom Filt Rate - Afr Amer 79 mL/min (>60); Estimated Creatinine Clearance 49.58 ml/min; Glucose 113 mg/dL (74-106); Potassium 3.8 mmol/L (3.5-5.1); Sodium Level 140 mmol/L (136-145)
[2018-08-11 07:18] LABS: Absolute Lymphocyte Count 1.73 X10^3/ul (0.83-4.51); Absolute Neutrophil Count 10.2 X10^3/uL (2.0-7.7); Basophil# 0.04 X10^3/uL; Basophil% 0.3 % (0-1); Eosinophil# 0.27 X10^3/uL; Hematocrit 37.9 % (37-47); Hemoglobin 12.3 g/dl (12.0-15.0); Lymphocyte # 1.73 X10^3/ul (4.0); Lymphocyte % 12.7 % (19-41); Mean Corp Hgb Conc 32.5 g/gl (32-36); Mean Corpuscular Hgb 27.2 pg (27.0-32.0); Mean Corpuscular Volume 83.8 fL (81-99); Mean Platelet Vol. 10.4 fl (6.2-12.0); Monocyte# 1.33 X10^3/uL; Monocyte% 9.8 % (0-10); Neutrophil # 10.21 X10^3/uL (2.7-7.7); Platelet Count 269 K/mm3 (150-450); RBC Distribution Width CV 14.6 % (11.6-14.6); Red Blood Count 4.52 M/mm3 (4.2-5.4); White Blood Count 13.6 K/mm3 (4.4-11.0)
[2018-08-11] MEDS: Ipratropium/Albuterol Sulfate 3 ML AMPUL.NEB INHALATION ×3 (07:22→19:14)
[2018-08-11 07:25] LABS: Differential Indicated SCAN CRITERIA MET; POSITIVE COUNT NO; POSITIVE DIFFERENTIAL NO; POSITIVE MORPHOLOGY YES
[2018-08-11] MEDS: Multivitamins,Therapeutic Tablet 1 TABLET PO (08:07)
[2018-08-11] MEDS: Aspirin 81 MG TAB.CHEW PO (08:07)
[2018-08-11 08:41] LABS: Differential Comment SCANNED
--- NOTE | 2018-08-11 08:46 | PCM.PN.HOSP ---
Subjective: Fall in the shower yesterday, she states that she was unsteady on her feet and her hands were soapy so when she felt she was going down she was not able to hold onto anything, and her bottom hit the crossbar which is where the nurses found her however get her cleaned up and back to bed. She did not hit her head. She states that her but little bit sore but otherwise no major issues. Vitals/I&O's: Vital Signs Temp Pulse Resp BP Pulse Ox 98.5 F 88 18 161/70 H 94 08/11/18 03:24 08/11/18 04:11 08/11/18 03:24 08/11/18 03:24 08/11/18 03:24 Oxygen Flow Rate (L/min) 2 Oxygen Delivery Method Room Air Weight: 171 lb Body Mass Index (BMI) 26.7 Finger Stick Blood Glucose 121 Intake and Output for Last 24 Hours 08/09/18 08/10/18 08/11/18 23:59 23:59 23:59 Intake Total 800 / 800 1790 / 1790 500 / 500 Balance 800 / 800 1790 / 1790 500 / 500 General: Alert, Oriented x3, Cooperative, No apparent distress HEENT: Atraumatic, EOMI, Normocephalic Oral: Moist Mucosa Neck: Supple, No JVD Lungs: Clear to auscultation, Normal air movement, No rhonchi, No wheeze, No rales, Diminished Cardiovascular: Regular rate, Regular Rhythm, Normal S1, Normal S2, No murmurs, No rub noted, No Gallop Abdomen: Soft, Non Tender, Non-Distended, No Hepato-splenomegaly Extremities: No edema, Capillary Refill Less than 3 Seconds Skin: No rashes, No breakdown Neurological: Neuro grossly intact, Sensory exam intact to light touch and pain Psych/Mental Status: Normal Affect, Appropriate Microbiology Past 72 Hours 08/09/18 10:45 Urine, Clean Catch Urine Culture - Final Mixed Gram Pos & Gram Neg Org 08/09/18 09:20 Mucosa - Throat Group A Streptococcus Rapid Screen - Final 08/09/18 09:20 Mucosa - Nose Respiratory Panel (PCR) - Final 08/09/18 09:20 Mucosa - Nose Influenza Types A,B Direct FA (VIK) - Final Laboratory Results 08/09/18 09:10: Diff Path Review Reviewed 08/11/18 06:05: WBC 13.6 H, RBC 4.52, Hgb 12.3, Hct 37.9, MCV 83.8, MCH 27.2, MCHC 32.5, RDW 14.6, RDW Differential 44.0 H, Plt Count 269, MPV 10.4, Immature Gran % (Auto) 0.200, Neut % (Auto) 75.0 H, Lymph % (Auto) 12.7 L, [place] % (Auto) 9.8, Eos % (Auto) 2.0, Baso % (Auto) 0.3, Absolute Neuts (auto) 10.2 H, Absolute Lymphs (auto) 1.73, Total Counted Not Reportable, Differential Comment SCANNED 08/11/18 06:05: Sodium 140, Potassium 3.8, Chloride 103, Carbon Dioxide 28.0, Anion Gap 9, BUN 15, Creatinine 0.88, Estim Creat Clear Calc 49.58, Est GFR (MDRD) Af Amer 79, Est GFR (MDRD) Non-Af 65, BUN/Creatinine Ratio 17.0, Glucose 113 H, Calcium 9.1 Current Medications Acetaminophen (Tylenol) 650 mg PO Q4H PRN PRN PRN Reason: FEVER Last Admin: 08/09/18 15:39 Dose: 650 mg Albuterol Sulfate (Ventolin Aerosols) 2.5 mg INHALATION Q2H PRN PRN Reason: WHEEZING Albuterol/Ipratropium (Duoneb) 3 ml INHALATION Q6HWA.RT [facility] Last Admin: 08/11/18 07:22 Dose: 3 ml Aspirin (Aspirin, Baby) 81 mg PO DAILY@0800 [facility] Last Admin: 08/11/18 08:07 Dose: 81 mg Cholecalciferol (Vitamin D) 2,000 unit PO DAILY [facility] Last Admin: 08/10/18 10:36 Dose: 2,000 unit Digoxin (Lanoxin) 125 mcg PO DAILY [facility] Last Admin: 08/10/18 10:55 Dose: 125 mcg Enoxaparin Sodium (Lovenox) 40 mg SC DAILY@1000 [facility] Last Admin: 08/10/18 10:36 Dose: 40 mg Guaifenesin (Mucinex) 1,200 mg PO BID [facility] Last Admin: 08/10/18 21:14 Dose: 1,200 mg Sodium Chloride () 500 mls @ 999 mls/hr IV .Q31M ONE Last Admin: 08/09/18 09:23 Dose: 999 mls/hr Ibuprofen (Motrin) 600 mg PO Q6H PRN PRN PRN Reason: MILD PAIN (-10/11) Last Admin: 08/10/18 18:04 Dose: 600 mg Levofloxacin (Levaquin Tablet) 750 mg PO Q48@0600 [facility] Last Admin: 08/10/18 10:36 Dose: 750 mg Magnesium Hydroxide (Milk Of Magnesia) 30 ml PO DAILY PRN PRN PRN Reason: Constipation Melatonin (Melatonin) 10 mg PO QHS [facility] Last Admin: 08/10/18 21:14 Dose: 10 mg Metoprolol Succinate (Toprol Xl (Beta Vishal)) 25 mg PO DAILY [facility] Last Admin: 08/10/18 10:36 Dose: 25 mg Multivitamins (Multivitamin) 1 tablet PO DAILYCM [facility] Last Admin: 08/11/18 08:07 Dose: 1 tablet Nutritional Formula (Lactose Free) (Ensure Enlive) 120 ml PO 4X/DAY [facility] Last Admin: 08/10/18 21:14 Dose: 120 ml Pantoprazole Sodium (Protonix) 40 mg PO DAILY [facility] Last Admin: 08/10/18 10:36 Dose: 40 mg Sodium Chloride () 5 - 15 ml IV UD PRN PRN Reason: SALINE FLUSH Medical Necessity - Tobacco Use Smoking Status: Never smoker Tobacco Use: Non-smoker Assessment/Plan All Active Problems Dehydration (Acute) Elevated serum creatinine (Acute) Syncope (Acute) 1. Acute viral syndrome secondary to RSV B infection/leukocytosis -No pneumonia evident on chest x-ray -Afebrile, leukocytosis has improved from 17.9 on admission to 16.6 to 13.3 -Levaquin for atypical coverage, q48 for renal dosing -Continue with breathing treatments, which she states help -Continue with Mucinex 2. Paroxysmal A. fib/hypertension -Currently stable, on aspirin -Continue with metoprolol 3. GERD -Stable -Continue with PPI Dispo: PT/OT to evaluate for possible placement in SNF DVT: Lovenox Code Visit Inpatient E&M: 39733 Subs Hosp L2
--- NOTE | 2018-08-11 08:50 | PN_ITS ---
Subjective: Fall in the shower yesterday, she states that she was unsteady on her feet and her hands were soapy so when she felt she was going down she was not able to hold onto anything, and her bottom hit the crossbar which is where the nurses found her however get her cleaned up and back to bed. She did not hit her head. She states that her but little bit sore but otherwise no major issues. Vitals/I&O's: Vital Signs Temp Pulse Resp BP Pulse Ox 98.5 F 88 18 161/70 H 94 08/11/18 03:24 08/11/18 04:11 08/11/18 03:24 08/11/18 03:24 08/11/18 03:24 Oxygen Flow Rate (L/min) 2 Oxygen Delivery Method Room Air Weight: 171 lb Body Mass Index (BMI) 26.7 Finger Stick Blood Glucose 121 Intake and Output for Last 24 Hours 08/09/18 08/10/18 08/11/18 23:59 23:59 23:59 Intake Total 800 / 800 1790 / 1790 500 / 500 Balance 800 / 800 1790 / 1790 500 / 500 General: Alert, Oriented x3, Cooperative, No apparent distress HEENT: Atraumatic, EOMI, Normocephalic Oral: Moist Mucosa Neck: Supple, No JVD Lungs: Clear to auscultation, Normal air movement, No rhonchi, No wheeze, No rales, Diminished Cardiovascular: Regular rate, Regular Rhythm, Normal S1, Normal S2, No murmurs, No rub noted, No Gallop Abdomen: Soft, Non Tender, Non-Distended, No Hepato-splenomegaly Extremities: No edema, Capillary Refill Less than 3 Seconds Skin: No rashes, No breakdown Neurological: Neuro grossly intact, Sensory exam intact to light touch and pain Psych/Mental Status: Normal Affect, Appropriate Microbiology Past 72 Hours 08/09/18 10:45 Urine, Clean Catch Urine Culture - Final Mixed Gram Pos & Gram Neg Org 08/09/18 09:20 Mucosa - Throat Group A Streptococcus Rapid Screen - Final 08/09/18 09:20 Mucosa - Nose Respiratory Panel (PCR) - Final 08/09/18 09:20 Mucosa - Nose Influenza Types A,B Direct FA (VIK) - Final Laboratory Results 08/09/18 09:10: Diff Path Review Reviewed 08/11/18 06:05: WBC 13.6 H, RBC 4.52, Hgb 12.3, Hct 37.9, MCV 83.8, MCH 27.2, MCHC 32.5, RDW 14.6, RDW Differential 44.0 H, Plt Count 269, MPV 10.4, Immature Gran % (Auto) 0.200, Neut % (Auto) 75.0 H, Lymph % (Auto) 12.7 L, [place] % (Auto) 9.8, Eos % (Auto) 2.0, Baso % (Auto) 0.3, Absolute Neuts (auto) 10.2 H, Absolute Lymphs (auto) 1.73, Total Counted Not Reportable, Differential Comment SCANNED 08/11/18 06:05: Sodium 140, Potassium 3.8, Chloride 103, Carbon Dioxide 28.0, Anion Gap 9, BUN 15, Creatinine 0.88, Estim Creat Clear Calc 49.58, Est GFR (MDRD) Af Amer 79, Est GFR (MDRD) Non-Af 65, BUN/Creatinine Ratio 17.0, Glucose 113 H, Calcium 9.1 Current Medications Acetaminophen (Tylenol) 650 mg PO Q4H PRN PRN PRN Reason: FEVER Last Admin: 08/09/18 15:39 Dose: 650 mg Albuterol Sulfate (Ventolin Aerosols) 2.5 mg INHALATION Q2H PRN PRN Reason: WHEEZING Albuterol/Ipratropium (Duoneb) 3 ml INHALATION Q6HWA.RT [facility] Last Admin: 08/11/18 07:22 Dose: 3 ml Aspirin (Aspirin, Baby) 81 mg PO DAILY@0800 [facility] Last Admin: 08/11/18 08:07 Dose: 81 mg Cholecalciferol (Vitamin D) 2,000 unit PO DAILY [facility] Last Admin: 08/10/18 10:36 Dose: 2,000 unit Digoxin (Lanoxin) 125 mcg PO DAILY [facility] Last Admin: 08/10/18 10:55 Dose: 125 mcg Enoxaparin Sodium (Lovenox) 40 mg SC DAILY@1000 [facility] Last Admin: 08/10/18 10:36 Dose: 40 mg Guaifenesin (Mucinex) 1,200 mg PO BID [facility] Last Admin: 08/10/18 21:14 Dose: 1,200 mg Sodium Chloride () 500 mls @ 999 mls/hr IV .Q31M ONE Last Admin: 08/09/18 09:23 Dose: 999 mls/hr Ibuprofen (Motrin) 600 mg PO Q6H PRN PRN PRN Reason: MILD PAIN (-10/11) Last Admin: 08/10/18 18:04 Dose: 600 mg Levofloxacin (Levaquin Tablet) 750 mg PO Q48@0600 [facility] Last Admin: 08/10/18 10:36 Dose: 750 mg Magnesium Hydroxide (Milk Of Magnesia) 30 ml PO DAILY PRN PRN PRN Reason: Constipation Melatonin (Melatonin) 10 mg PO QHS [facility] Last Admin: 08/10/18 21:14 Dose: 10 mg Metoprolol Succinate (Toprol Xl (Beta Vishal)) 25 mg PO DAILY [facility] Last Admin: 08/10/18 10:36 Dose: 25 mg Multivitamins (Multivitamin) 1 tablet PO DAILYCM [facility] Last Admin: 08/11/18 08:07 Dose: 1 tablet Nutritional Formula (Lactose Free) (Ensure Enlive) 120 ml PO 4X/DAY [facility] Last Admin: 08/10/18 21:14 Dose: 120 ml Pantoprazole Sodium (Protonix) 40 mg PO DAILY [facility] Last Admin: 08/10/18 10:36 Dose: 40 mg Sodium Chloride () 5 - 15 ml IV UD PRN PRN Reason: SALINE FLUSH Medical Necessity - Tobacco Use Smoking Status: Never smoker Tobacco Use: Non-smoker Assessment/Plan All Active Problems Dehydration (Acute) Elevated serum creatinine (Acute) Syncope (Acute) 1. Acute viral syndrome secondary to RSV B infection/leukocytosis -No pneumonia evident on chest x-ray -Afebrile, leukocytosis has improved from 17.9 on admission to 16.6 to 13.3 -Levaquin for atypical coverage, q48 for renal dosing -Continue with breathing treatments, which she states help -Continue with Mucinex 2. Paroxysmal A. fib/hypertension -Currently stable, on aspirin -Continue with metoprolol 3. GERD -Stable -Continue with PPI Dispo: PT/OT to evaluate for possible placement in SNF DVT: Lovenox Code Visit Inpatient E&M: 20630 Subs Hosp L2
--- NOTE | 2018-08-11 09:50 | CASEMGMT ---
RN CM Note: Per nursing, pt is requesting to go to SNF, stating she does not think she can manage @ home. PT/OT evaluations to be completed today. Message left with Sudha WILLS to speak with pt re: SNF. Ruba SKINNERN RN ACM
[2018-08-11] MEDS: Metoprolol(XL)Succ 25 MG Tablet PO (10:25)
[2018-08-11] MEDS: Enoxaparin 40 MG/0.4 ML Syringe SC (10:25)
[2018-08-11] MEDS: Pantoprazole Sodium 40 MG Tablet PO (10:25)
[2018-08-11] MEDS: Digoxin 125 MCG Tablet PO (10:26)
[2018-08-11] MEDS: guaiFENesin 1,200 MG Tablet 1200 MG PO ×2 (10:26→21:00)
--- NOTE | 2018-08-11 15:58 | CM.ED ---
Social Work Note Face to face with the pt to confirm discharge plan. Pt states that she intends on going to [facility] and that her granddaugther works there. States that they have a respiratory room that will be available for her. Ensure that the pt understands this will not be covered by insurance, and she states she does, and that she and her spouse have the finances to cover it. No further questions or needs expressed at this time. Placed call to [facility] and spoke with Erendira. Erendira confirms they will have a room and that the pt's daughter and granddaughter are coming to see the facility tonight, and if they are pleased they will furnish the room tomorrow. Clinicals faxed over. H&P form faxed from [facility] to be completed by physician prior to discharge and notified SW on assigned unit of this discharge plan. PLAN: [facility] at discharge. Diana Dooley, DESKTOP MANAGER, JULITA
[2018-08-11] MEDS: Ibuprofen 600 MG Tablet PO (18:30)
[2018-08-11] MEDS: BENZOCAINE/MENTHOL 1 LOZENGE MUCOUS MEM (18:31)
[2018-08-11] MEDS: MELATONIN 10 MG TABLET PO (21:00)
[2018-08-12] VITALS (15 sets, daily range): BP systolic 132–160; BP diastolic 60–86; PULSE 75–104; RESP 16–19; TEMP 36.6–36.9; O2SAT 94–97
[2018-08-12] MEDS: Ibuprofen 600 MG Tablet PO ×2 (01:59→09:58)
[2018-08-12] MEDS: levoFLOXacin 750 MG Tablet PO (05:17)
[2018-08-12] MEDS: Ipratropium/Albuterol Sulfate 3 ML AMPUL.NEB INHALATION ×3 (07:07→19:12)
--- NOTE | 2018-08-12 08:49 | PCM.PN.HOSP ---
Subjective: Still feels junky with nasal congestion and a postnasal drip, though denies any fevers, chills, chest pain, shortness of breath. Vitals/I&O's: Vital Signs Temp Pulse Resp BP Pulse Ox 97.8 F 80 16 144/75 H 96 08/12/18 02:01 08/12/18 07:08 08/12/18 07:08 08/12/18 02:01 08/12/18 07:08 Oxygen Flow Rate (L/min) 2 Oxygen Delivery Method Room Air Weight: 171 lb Body Mass Index (BMI) 26.7 Finger Stick Blood Glucose 121 Intake and Output for Last 24 Hours 08/10/18 08/11/18 08/12/18 23:59 23:59 23:59 Intake Total 1789 720 / 720 Balance 1789 720 / 720 General: Alert, Oriented x3, Cooperative, No apparent distress HEENT: Atraumatic, EOMI, Normocephalic Oral: Moist Mucosa Neck: Supple, No JVD Lungs: Clear to auscultation, Normal air movement, No rhonchi, No wheeze, No rales, Diminished Cardiovascular: Regular rate, Regular Rhythm, Normal S1, Normal S2, No murmurs, No rub noted, No Gallop Abdomen: Soft, Non Tender, Non-Distended, No Hepato-splenomegaly Extremities: No edema, Capillary Refill Less than 3 Seconds Skin: No rashes, No breakdown Neurological: Neuro grossly intact, Sensory exam intact to light touch and pain Psych/Mental Status: Normal Affect, Appropriate Microbiology Past 72 Hours 08/09/18 10:45 Urine, Clean Catch Urine Culture - Final Mixed Gram Pos & Gram Neg Org 08/09/18 09:20 Mucosa - Throat Group A Streptococcus Rapid Screen - Final 08/09/18 09:20 Mucosa - Nose Respiratory Panel (PCR) - Final 08/09/18 09:20 Mucosa - Nose Influenza Types A,B Direct FA (VIK) - Final Current Medications Acetaminophen (Tylenol) 650 mg PO Q4H PRN PRN PRN Reason: FEVER Last Admin: 08/09/18 15:39 Dose: 650 mg Albuterol Sulfate (Ventolin Aerosols) 2.5 mg INHALATION Q2H PRN PRN Reason: WHEEZING Albuterol/Ipratropium (Duoneb) 3 ml INHALATION Q6HWA.RT [facility] Last Admin: 08/12/18 07:07 Dose: 3 ml Aspirin (Aspirin, Baby) 81 mg PO DAILY@0800 [facility] Last Admin: 08/11/18 08:07 Dose: 81 mg Cholecalciferol (Vitamin D) 2,000 unit PO DAILY [facility] Last Admin: 08/11/18 10:26 Dose: 2,000 unit Digoxin (Lanoxin) 125 mcg PO DAILY [facility] Last Admin: 08/11/18 10:26 Dose: 125 mcg Enoxaparin Sodium (Lovenox) 40 mg SC DAILY@1000 [facility] Last Admin: 08/11/18 10:25 Dose: 40 mg Guaifenesin (Mucinex) 1,200 mg PO BID [facility] Last Admin: 08/11/18 21:00 Dose: 1,200 mg Sodium Chloride () 500 mls @ 999 mls/hr IV .Q31M ONE Last Admin: 08/09/18 09:23 Dose: 999 mls/hr Ibuprofen (Motrin) 600 mg PO Q6H PRN PRN PRN Reason: MILD PAIN (1-3/10) Last Admin: 08/12/18 01:59 Dose: 600 mg Levofloxacin (Levaquin Tablet) 750 mg PO Q48@0600 [facility] Last Admin: 08/12/18 05:17 Dose: 750 mg Magnesium Hydroxide (Milk Of Magnesia) 30 ml PO DAILY PRN PRN PRN Reason: Constipation Melatonin (Melatonin) 10 mg PO QHS [facility] Last Admin: 08/11/18 21:00 Dose: 10 mg Metoprolol Succinate (Toprol Xl (Beta Vishal)) 25 mg PO DAILY [facility] Last Admin: 08/11/18 10:25 Dose: 25 mg [facility]it[facility]) [facility] Last Admin: 08/11/18 08:07 Dose: 1 tablet Nutritional Formula (Lactose Free) (Ensure Enlive) 120 ml PO 4X/DAY [facility] Last Admin: 08/11/18 21:00 Dose: 120 ml Pantoprazole Sodium (Protonix) 40 mg PO DAILY [facility] Last Admin: 08/11/18 10:25 Dose: 40 mg Sodium Chloride () 5 - 15 ml IV UD PRN PRN Reason: SALINE FLUSH Throat Lozenges (Cepacol Sore Throat Lozenge) 1 lozenge MUCOUS MEM Q2H PRN PRN PRN Reason: SORE THROAT Last Admin: 08/11/18 18:31 Dose: 1 lozenge Medical Necessity - Tobacco Use Smoking Status: Never smoker Tobacco Use: Non-smoker Assessment/Plan All Active Problems Dehydration (Acute) Elevated serum creatinine (Acute) Syncope (Acute) 1. Acute viral syndrome secondary to RSV B infection/leukocytosis -Afebrile, leukocytosis has improved from 17.9 on admission to 16.6 to 13.3 -Levaquin for atypical coverage, q48 for renal dosing -Continue with breathing treatments, which she states help -Continue with Mucinex -Plan will be for discharge to [facility] living tomorrow 2. Paroxysmal A. fib/hypertension -Currently stable, on aspirin -Continue with metoprolol, and digoxin 3. GERD -Stable -Continue with PPI DVT: Lovenox Code Visit Inpatient E&M: 62003 Subs Hosp L2
--- NOTE | 2018-08-12 08:52 | PN_ITS ---
Subjective: Still feels junky with nasal congestion and a postnasal drip, though denies any fevers, chills, chest pain, shortness of breath. Vitals/I&O's: Vital Signs Temp Pulse Resp BP Pulse Ox 97.8 F 80 16 144/75 H 96 08/12/18 02:01 08/12/18 07:08 08/12/18 07:08 08/12/18 02:01 08/12/18 07:08 Oxygen Flow Rate (L/min) 2 Oxygen Delivery Method Room Air Weight: 171 lb Body Mass Index (BMI) 26.7 Finger Stick Blood Glucose 121 Intake and Output for Last 24 Hours 08/10/18 08/11/18 08/12/18 23:59 23:59 23:59 Intake Total 1789 720 / 720 Balance 1789 720 / 720 General: Alert, Oriented x3, Cooperative, No apparent distress HEENT: Atraumatic, EOMI, Normocephalic Oral: Moist Mucosa Neck: Supple, No JVD Lungs: Clear to auscultation, Normal air movement, No rhonchi, No wheeze, No rales, Diminished Cardiovascular: Regular rate, Regular Rhythm, Normal S1, Normal S2, No murmurs, No rub noted, No Gallop Abdomen: Soft, Non Tender, Non-Distended, No Hepato-splenomegaly Extremities: No edema, Capillary Refill Less than 3 Seconds Skin: No rashes, No breakdown Neurological: Neuro grossly intact, Sensory exam intact to light touch and pain Psych/Mental Status: Normal Affect, Appropriate Microbiology Past 72 Hours 08/09/18 10:45 Urine, Clean Catch Urine Culture - Final Mixed Gram Pos & Gram Neg Org 08/09/18 09:20 Mucosa - Throat Group A Streptococcus Rapid Screen - Final 08/09/18 09:20 Mucosa - Nose Respiratory Panel (PCR) - Final 08/09/18 09:20 Mucosa - Nose Influenza Types A,B Direct FA (VIK) - Final Current Medications Acetaminophen (Tylenol) 650 mg PO Q4H PRN PRN PRN Reason: FEVER Last Admin: 08/09/18 15:39 Dose: 650 mg Albuterol Sulfate (Ventolin Aerosols) 2.5 mg INHALATION Q2H PRN PRN Reason: WHEEZING Albuterol/Ipratropium (Duoneb) 3 ml INHALATION Q6HWA.RT [facility] Last Admin: 08/12/18 07:07 Dose: 3 ml Aspirin (Aspirin, Baby) 81 mg PO DAILY@0800 [facility] Last Admin: 08/11/18 08:07 Dose: 81 mg Cholecalciferol (Vitamin D) 2,000 unit PO DAILY [facility] Last Admin: 08/11/18 10:26 Dose: 2,000 unit Digoxin (Lanoxin) 125 mcg PO DAILY [facility] Last Admin: 08/11/18 10:26 Dose: 125 mcg Enoxaparin Sodium (Lovenox) 40 mg SC DAILY@1000 [facility] Last Admin: 08/11/18 10:25 Dose: 40 mg Guaifenesin (Mucinex) 1,200 mg PO BID [facility] Last Admin: 08/11/18 21:00 Dose: 1,200 mg Sodium Chloride () 500 mls @ 999 mls/hr IV .Q31M ONE Last Admin: 08/09/18 09:23 Dose: 999 mls/hr Ibuprofen (Motrin) 600 mg PO Q6H PRN PRN PRN Reason: MILD PAIN (1-3/10) Last Admin: 08/12/18 01:59 Dose: 600 mg Levofloxacin (Levaquin Tablet) 750 mg PO Q48@0600 [facility] Last Admin: 08/12/18 05:17 Dose: 750 mg Magnesium Hydroxide (Milk Of Magnesia) 30 ml PO DAILY PRN PRN PRN Reason: Constipation Melatonin (Melatonin) 10 mg PO QHS [facility] Last Admin: 08/11/18 21:00 Dose: 10 mg Metoprolol Succinate (Toprol Xl (Beta Vishal)) 25 mg PO DAILY [facility] Last Admin: 08/11/18 10:25 Dose: 25 mg [facility]) [facility] Admin: 08/11/18 08:07 Dose: 1 tablet Nutritional Formula (Lactose Free) (Ensure Enlive) 120 ml PO 4X/DAY [facility] Last Admin: 08/11/18 21:00 Dose: 120 ml Pantoprazole Sodium (Protonix) 40 mg PO DAILY [facility] Last Admin: 08/11/18 10:25 Dose: 40 mg Sodium Chloride () 5 - 15 ml IV UD PRN PRN Reason: SALINE FLUSH Throat Lozenges (Cepacol Sore Throat Lozenge) 1 lozenge MUCOUS MEM Q2H PRN PRN PRN Reason: SORE THROAT Last Admin: 08/11/18 18:31 Dose: 1 lozenge Medical Necessity - Tobacco Use Smoking Status: Never smoker Tobacco Use: Non-smoker Assessment/Plan All Active Problems Dehydration (Acute) Elevated serum creatinine (Acute) Syncope (Acute) 1. Acute viral syndrome secondary to RSV B infection/leukocytosis -Afebrile, leukocytosis has improved from 17.9 on admission to 16.6 to 13.3 -Levaquin for atypical coverage, q48 for renal dosing -Continue with breathing treatments, which she states help -Continue with Mucinex -Plan will be for discharge to [facility] living tomorrow 2. Paroxysmal A. fib/hypertension -Currently stable, on aspirin -Continue with metoprolol, and digoxin 3. GERD -Stable -Continue with PPI DVT: Lovenox Code Visit Inpatient E&M: 34865 Subs Hosp L2
--- NOTE | 2018-08-12 09:49 | CASEMGMT ---
Addendum entered by Yajaira Baker 08/12/18 10:58: Physician signed form for [facility], ELMA faxed it along with a copy of the H&P to Erendira at [facility]. LILIAN Benoit, KAMRON Original Note: Addendum entered by Yajaira Baker 08/12/18 10:43: SW spoke w/pt in room, let her know that [facility] will have a bed for her tomorrow. Pt was aware of this already from her family, she states she told the physician this morning. SW asked pt about going home for a day and then going to assisted living tomorrow, pt does not feel she can do this. SW explained will come see her tomorrow, and if she has any questions to let her RN know and SW is available to come back. ELMA did text physician to make sure he knows that pt will not have a bed at the assisted living until tomorrow. SW will continue to follow. LILIAN Benoit, KAMRON Original Note: ELMA called Erendira at [facility]. She states that family did come in to see the facility, they will take pt but the room will not be ready until tomorrow. Erendira faxed over the needed form, SW will have physician sign and fax back. Erendira asked also about immunization record and TB test, ELMA will look to see if we have this information. Erendira also inquired how long pt needs to be on droplet precautions, ELMA explained will find out for her. ELMA reviewed chart, we do not have record of pt's immunizations, and pt has not have a TB test here. ELMA spoke w/ID, generally speaking pt should be on precautions for 10 days, however once pt is asymptomatic and pt can contain any coughing/sneezing, pt can come off of precautions. ELMA called Erendira back from [facility], let her know all of the above information. ELMA also suggested she call pt's PCP office, Dr. Garsia, to check on immunizations and TB test. ELMA will continue to follow. LILIAN Benoit, KAMRON
[2018-08-12] MEDS: Enoxaparin 40 MG/0.4 ML Syringe SC (09:52)
[2018-08-12] MEDS: Digoxin 125 MCG Tablet PO (09:52)
[2018-08-12] MEDS: Aspirin 81 MG TAB.CHEW PO (09:52)
[2018-08-12] MEDS: Multivitamins,Therapeutic Tablet 1 TABLET PO (09:52)
[2018-08-12] MEDS: guaiFENesin 1,200 MG Tablet 1200 MG PO ×2 (09:52→21:06)
[2018-08-12] MEDS: Metoprolol(XL)Succ 25 MG Tablet PO (09:53)
[2018-08-12] MEDS: Pantoprazole Sodium 40 MG Tablet PO (09:53)
[2018-08-12] MEDS: Magnesium Hydroxide 30 ML UDC PO (09:58)
--- NOTE | 2018-08-12 10:49 | CASEMGMT ---
SW spoke w/pt in room, let her know that the POA/LW forms are not in the echart. SW asked pt to bring them in at another time or if she has to be in the hospital again in the future. Pt states understanding. LILIAN Benoit, BURNER [employer]FT
[2018-08-12] MEDS: Acetaminophen 325 MG Tablet 650 MG PO ×2 (12:30→17:17)
--- NOTE | 2018-08-12 13:12 | RAD_ITS ---
STUDY: X-RAY - PELVIS REASON FOR EXAM: Female, 82 years old. Low back pain and coccygeal pain following a fall. TECHNIQUE: One view of the pelvis was obtained. COMPARISON: None. FINDINGS: Moderate amount of fecal material is seen in the left hemicolon. There are multiple calcified phleboliths. Normal bilateral iliac wings, sacroiliac joints and visualized sacrum. Normal visualized bilateral superior and inferior pubic rami. Normal pubic symphysis. Normal ischial tuberosities. Normal visualized right femoral head. Normal right acetabulum. There is mild articular joint space narrowing of the right hip. Normal visualized left femoral head. Normal left acetabulum. There is moderate articular joint space narrowing of the left hip. Disc space narrowing in the lower lumbar spine. RAD/Pelvis 1 or 2 Views IMPRESSION: Degenerative changes of both hip joints. Electronically Signed: Sy Freeman MD at 8:34 EST Tel [phone], Service support ,
--- NOTE | 2018-08-12 14:45 | NURSING ---
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 upset with physician orders today. complained of coccyx and lumbar pain. MD ordered pelvic xray. Patient asking about xray showing the actual area that is hurting. also concern with her wbc count. No labs drawn today but supposed to be discharged tomorrow. assured patient I will speak to the physician about her concerns and get back to her. Patient asked what antibiotic she was on- wrote on her sheet in her room for her. Patient moaning with movement. asked if she needed something for pain or repositioned in bed. patient denies at this time but will call her nurse if she needs something. trash can in reach, phone in reach. no other needs at this time.
--- NOTE | 2018-08-12 14:48 | NURSING ---
text to dr. Edmonds asking him to stop by my office to discuss patient questions/concern.
--- NOTE | 2018-08-12 15:12 | NURSING ---
discussed concerns with dr. Edmonds. plan is to wait for reading of pelvic xray. If not conclusive- will order lumbar xray but feel that pelvic xray will give picture of area where patient pain is concern. dr. edmonds feels clinically patient is getting better with no fever so lab work is not necessary at this time. relayed information to the patient. patient agreeable with plan.
[2018-08-12] MEDS: MELATONIN 10 MG TABLET PO (21:06)
[2018-08-13] VITALS (7 sets, daily range): BP systolic 148–153; BP diastolic 71–84; PULSE 78–88; RESP 16–18; TEMP 36.4–36.6; O2SAT 92–94
[2018-08-13] MEDS: Acetaminophen 325 MG Tablet 650 MG PO ×2 (02:36→11:00)
[2018-08-13] MEDS: Ipratropium/Albuterol Sulfate 3 ML AMPUL.NEB INHALATION (07:28)
--- NOTE | 2018-08-13 08:56 | DCINST_ITS ---
You will use the following diet at home:: Cardiac Your food should be the consistency of: Regular Your liquids should be the consistency of: Regular/Thin Discharge Activity: Return to Normal Activity, Use Walker Call your doctor if you observe: Fever of 101 or Higher, Shortness of breath, Dizziness, Fainting spells, Chest pain, Increased palpitations (irregular heartbeat) Allergies/Adverse Reactions: Allergies bee venom protein (honey bee) Allergy (Verified 08/09/18 08:57) Anaphylaxis also wasps latex Allergy (Verified 08/09/18 08:57) Rash Penicillins Allergy (Verified 08/09/18 08:57) Rash Medications to take at Discharge Aspirin [Aspirin, Baby] 81 mg PO DAILY@0800 12/06/13 Cholecalciferol (Vitamin D3) [Vitamin D] 2,000 unit PO DAILY 12/06/13 Digoxin [Digox] 125 mcg PO DAILY 12/06/13 Metoprolol(XL)Succ [Toprol Xl (Beta Vishal)] 25 mg PO DAILY 12/06/13 Multivitamins,Therapeutic [Multivitamin] 1 tablet PO DAILY 12/06/13 Pantoprazole Sodium [Protonix] 40 mg PO DAILY 12/06/13 Melatonin 10 mg PO QHS 01/15/17 [place]-3 Fatty Acids [Fish Oil] 500 mg PO DAILY 08/09/18 levoFLOXacin tablet [Levaquin tablet] 750 mg PO Q48@0600 #4 tablet 08/13/18 The following prescriptions were given: levoFLOXacin tablet [Levaquin tablet] 750 mg PO Q48@0600 #4 tablet Primary Care Physician: nAtonio Garsia DO [Primary Care Provider] - Please follow up with your Primary Care Physician in: 3-5 days Test Results: Test results from this visit will be discussed in further detail at your follow-up appointment, if applicable.
--- NOTE | 2018-08-13 08:57 | PCM.DC.SUM ---
Discharge Date and Diagnosis Date of Admission: 08/09/18 Date of Discharge: 08/13/18 - Secondary Discharge Diagnosis Chronic Problems Ventricular ectopy (Chronic) Paroxysmal atrial fibrillation (Chronic) Hypertension (Chronic) Hospital Course and Treatment Imaging Results: CXR: IMPRESSION: 1. No acute cardiopulmonary process Xray Pelvis: IMPRESSION: Degenerative changes of both hip joints. Consults: None Operations: None Procedures: None Summary of Care Provided: Per HPI: The patient is a 82 year old F with a past medical history of hypertension, paroxysmal atrial fibrillation and frequent ventricular ectopy presented to the emergency department at [facility] on 08/09/2018 complaining of cough, rhinorrhea, myalgias and arthralgias and sore throat. No signs of presentation to the emergency room are temperature 99, pulse rate 88, blood pressure 197/70, respiratory rate 22 and she was 91% saturated. She was 94% on a 2 L nasal cannula. White blood cell count was elevated at 17.9 with a left shift. Hemoglobin is 13.6 and the platelets are within normal limits. Electrolytes are within normal limits and the BUN is 14 with a creatinine of 0.95. Actiq acid is 1.0. Protein was less than 0.015 and the total creatine kinase is 98. UA shows no infiltrates, pulmonary vascular congestion or pleural effusions. Strep is negative. Panel is positive for RSV B. Show 10-25 white blood cells bacteria. It was nitrite negative. Dig level was 0.62. To the hospital with a diagnosis of acute viral syndrome secondary to RSV B infection. Hospital Course: 1. Acute viral syndrome secondary to RSV B infection/leukocytosis - She presented with symptoms very similar to a viral syndrome, though she was also started on Rocephin because she did have leukocytosis initially at 17.9. The thought was that if this was due to a viral syndrome it should normalize very quickly however on the day after admission, her leukocytosis of 16.6. Therefore she was continued on Levaquin to treat for possible underlying pneumonia that though there is nothing evident on chest x-ray initially. The Levaquin was dosed at renal dosing every 48 hours, therefore she will be discharged on 4 more pills to take 1 every other day to complete a 10-day course. Her white count has been normalizing and she has remained afebrile during her stay. 2. Paroxysmal A. fib/hypertension - Her heart rate has been controlled on metoprolol, and her rhythm has been controlled on digoxin. On admission her digoxin level was 0.62 which is low, she will probably need this rechecked as an outpatient next week when she sees her primary care physician. 3. Fall - In the beginning of her stay she felt like she could go home and demanded to be very independent, she decided to take a shower on her own without any assistance. At that time she became weak and unfortunately had soap on her hands and was unable to hold onto the railing so she fell and hit the crossbar on her but which was a few inches beneath her. She did not have any sign of bruise and did not hit her head and she was able to get helped out of the shower, she did have some pain on the day after from the soreness pelvic x-ray was obtained which did not show any fracture and on the day of discharge she denies having any pain. Objective: General: Alert, Oriented x3, Cooperative, No apparent distress HEENT: Atraumatic, EOMI, Normocephalic Oral: Moist Mucosa Neck: Supple, No JVD Lungs: Clear to auscultation, Normal air movement, No rhonchi, No wheeze, No rales, Diminished Cardiovascular: Regular rate, Regular Rhythm, Normal S1, Normal S2, No murmurs, No rub noted, No Gallop Abdomen: Soft, Non Tender, Non-Distended, No Hepato-splenomegaly Extremities: No edema, Capillary Refill Less than 3 Seconds Skin: No rashes, No breakdown Neurological: Neuro grossly intact, Sensory exam intact to light touch and pain Psych/Mental Status: Normal Affect, Appropriate - Physical Exam Vital Signs Temp Pulse Resp BP Pulse Ox 97.6 F L 78 16 148/84 H 92 08/13/18 02:20 08/13/18 07:28 08/13/18 07:28 08/13/18 02:20 08/13/18 07:28 Oxygen Flow Rate (L/min) 2 Oxygen Delivery Method Room Air Weight: 171 lb Body Mass Index (BMI) 26.7 Finger Stick Blood Glucose 121 Intake and Output for Last 24 Hours 08/11/18 08/12/18 08/13/18 23:59 23:59 23:59 Intake Total 2049 720 / 720 840 / 840 Balance 2049 720 / 720 840 / 840 Microbiology Past 72 Hours 08/09/18 10:45 Urine Culture - Final Urine, Clean Catch Mixed Gram Pos & Gram Neg Org 08/09/18 09:20 Group A Streptococcus Rapid Screen - Final Mucosa - Throat Discharge Activity: Return to Normal Activity, Use Walker Call your doctor if you observe: Fever of 101 or Higher, Shortness of breath, Dizziness, Fainting spells, Chest pain, Increased palpitations (irregular heartbeat) Home Medications: Medications to take at Discharge Aspirin [Aspirin, Baby] 81 mg PO DAILY@0800 12/06/13 Cholecalciferol (Vitamin D3) [Vitamin D] 2,000 unit PO DAILY 12/06/13 Digoxin [Digox] 125 mcg PO DAILY 12/06/13 Metoprolol(XL)Succ [Toprol Xl (Beta Vishal)] 25 mg PO DAILY 12/06/13 Multivitamins,Therapeutic [Multivitamin] 1 tablet PO DAILY 12/06/13 Pantoprazole Sodium [Protonix] 40 mg PO DAILY 12/06/13 Melatonin 10 mg PO QHS 01/15/17 [place]-3 Fatty Acids [Fish Oil] 500 mg PO DAILY 08/09/18 levoFLOXacin tablet [Levaquin tablet] 750 mg PO Q48@0600 #4 tablet 08/13/18 Following Prescrptions Were Given to Patient: levoFLOXacin tablet [Levaquin tablet] 750 mg PO Q48@0600 #4 tablet Primary Care Physician: Antonio Garsia DO [Primary Care Provider] - Please follow up with your Primary Care Physician in: 3-5 days Disposition: Asstd Living/Non-Skill IN Minutes spent on discharge:: 35 Patient Condition:: Good Medical Necessity - Tobacco Use Smoking Status: Never smoker Tobacco Use: Non-smoker Meaningful Use Info Meaningful Use Diagnoses (Choose all that apply): None applicable Code Visit Inpatient E&M: 97593 Disch Hosp
--- NOTE | 2018-08-13 10:07 | NURSING ---
updated patient on xray results to pelvic pain. no further labs ordered/needed at this time per MD--WBC trending down/afebrile/vitals stable. pt denies further questions/needs at this time. updated on medication order to itchiness to chest.
--- NOTE | 2018-08-13 10:29 | CASEMGMT ---
Pt is discharged today to [facility]. ELMA faxed discharge instructions to [facility]. ELMA spoke w/pt, she states her family will pick her up after 1pm, and they plan to stop at home to pick up driver some things then go to [facility]. ELMA called [facility], message left with the operator receptionist letting them know it is anticipated pt will be there about 3pm. ELMA did also let RN know that family will be here about 1pm. No further needs anticipated. LILIAN Benoit, PUMPER GAUGER APPRENTICE
[2018-08-13] MEDS: Enoxaparin 40 MG/0.4 ML Syringe SC (10:58)
[2018-08-13] MEDS: Metoprolol(XL)Succ 25 MG Tablet PO (10:58)
[2018-08-13] MEDS: Multivitamins,Therapeutic Tablet 1 TABLET PO (10:58)
[2018-08-13] MEDS: guaiFENesin 1,200 MG Tablet 1200 MG PO (10:58)
[2018-08-13] MEDS: Digoxin 125 MCG Tablet PO (10:59)
[2018-08-13] MEDS: Pantoprazole Sodium 40 MG Tablet PO (10:59)
[2018-08-13] MEDS: Aspirin 81 MG TAB.CHEW PO (10:59)
[2018-08-13] MEDS: Hydrocortisone 2.5% Crm 1 APPLIC TOPICAL (11:01)
--- NOTE | 2018-08-14 14:55 | CASEMGMT ---
ELMA received a call from Erendira at [facility] asking about home PT and OT for this pt. This had not been communicated to this SW that pt needed home health PT/OT. Erendira states that they do not have their own PT/OT and use [facility]. ELMA explained will call and make a referral. ELMA called [facility], spoke w/Iker. They can take pt and will start working w/her on Friday. ELMA called Erendira back at [facility] and let her know. No further needs anticipated. LILIAN Benoit, COMPLIANCE PARALEGAL
== END 2018-08-13 12:40 | disposition home health service (06) | DRG 866 ==
LOC: ED 11:31 → MS2 12:11
PROVIDERS: Admitting Provider Internal Medicine; Emergency Provider Emergency Medicine; Family Provider Family Medicine; PCP Family Medicine; Visit Provider Family Medicine
DX: B34.9 Viral infection, unspecified (principal); I10 Essential (primary) hypertension; I48.0 Paroxysmal atrial fibrillation; B97.4 Respiratory syncytial virus as the cause of diseases classified elsewhere; J20.9 Acute bronchitis, unspecified; I48.91 Unspecified atrial fibrillation; Z79.82 Long term (current) use of aspirin; Z79.899 Other long term (current) drug therapy
CPT/HCPCS: 36415; 71045; 71046; 72170; 80048; 80162; 81001; 82550; 83605; 83880; 84484; 85025; 87086; 87088; 87633; 87804; 87880; 93005; 94640; 96360; 96361; 97162; 97165; 97530; 97802; 99285; J7030; J7040; A4216

== ENCOUNTER → 2018-09-09 10:42 | Outpatient (CLI) | payer MEDICARE, OTHER, SELFPAY ==
[2018-08-09 12:20] VITALS: BMI 26.7
[2018-09-09 12:05] LABS: Absolute Lymphocyte Count 2.74 X10^3/ul (0.83-4.51); Absolute Neutrophil Count 3.3 X10^3/uL (2.0-7.7); Basophil# 0.06 X10^3/uL; Basophil% 0.9 % (0-1); Eosinophil# 0.14 X10^3/uL; Hematocrit 40.9 % (37-47); Hemoglobin 12.7 g/dl (12.0-15.0); Lymphocyte # 2.74 X10^3/ul (4.0); Lymphocyte % 39.5 % (19-41); Mean Corp Hgb Conc 31.1 g/gl (32-36); Mean Corpuscular Hgb 26.9 pg (27.0-32.0); Mean Corpuscular Volume 86.7 fL (81-99); Monocyte# 0.65 X10^3/uL; Monocyte% 9.4 % (0-10); Neutrophil # 3.33 X10^3/uL (2.7-7.7); Neutrophil % 48.1 % (47-70); Platelet Count 273 K/mm3 (150-450); RBC Distribution Width CV 14.9 % (11.6-14.6); RBC Distribution Width SD 47.1 fl (35.1-43.9); Red Blood Count 4.72 M/mm3 (4.2-5.4); White Blood Count 6.9 K/mm3 (4.4-11.0)
[2018-09-09 12:06] LABS: POSITIVE COUNT NO; POSITIVE DIFFERENTIAL NO; POSITIVE MORPHOLOGY NO
[2018-09-09 12:32] LABS: ALB/GLOB Ratio 1.1 RATIO (0.9-2.4); AST(SGOT) 18 U/L (15-37); Alanine Aminotransfer ALT/SGPT 24 U/L (13-56); Albumin, Serum 3.7 g/dL (3.2-5.0); Alkaline Phosphatase 118 U/L (45-117); Anion Gap 9 (5-15); BUN 21 mg/dL (7-18); BUN/Creat Ratio 20.6 RATIO (10-20); Chloride 106 mmol/L (98-107); Creatinine, Serum 1.02 mg/dL (0.55-1.02); EST Glomerular Filtration Rate 55 mL/min (>60); Est Glom Filt Rate - Afr Amer 67 mL/min (>60); Globulin 3.5 g/dL (2.2-4.2); Glucose 103 mg/dL (74-106); Potassium 4.5 mmol/L (3.5-5.1); Protein, Total 7.2 g/dL (6.4-8.2); Sodium Level 141 mmol/L (136-145); Thyroid Stim Hormone (TSH) 1.96 uIU/mL (0.358-3.74)
== END ==
PROVIDERS: Family Provider Family Medicine; PCP Family Medicine; Visit Provider Family Medicine
DX: J20.5 Acute bronchitis due to respiratory syncytial virus (principal); R53.83 Other fatigue
CPT/HCPCS: 36415; 80053; 84443; 85025

== ENCOUNTER 2019-12-22 06:16 | Observation (INO) | payer MEDICARE, OTHER, SELFPAY ==
[2019-04-28 13:22] VITALS: BMI 27.6
[2019-12-22] VITALS (15 sets, daily range): BP systolic 121–212; BP diastolic 57–103; PULSE 69–86; RESP 14–20; TEMP 36.6–37.3; O2SAT 93–97; BMI 28.5; BMI 26.6; BMI 26.7
--- NOTE | 2019-12-22 06:23 | CT_ITS ---
STUDY: CT BRAIN WITHOUT CONTRAST REASON FOR EXAM: Female, 84 years old. HEADACHE RADIATION DOSAGE (If Supplied By Facility): CTDIvol = ( 44.99 ) mGy, DLP = ( 812.98 ) mGycm TECHNIQUE: Transaxial CT imaging of the brain was performed without administration of intravenous contrast material. Individualized dose optimization techniques were used for this CT. COMPARISON: No relevant priors. FINDINGS: Normal soft tissue structures. Normal calvarium. There is mild cerebral atrophy with widening of the extra-axial spaces and ventricular dilatation. There are areas of decreased attenuation within the white matter tracts of the supratentorial brain, consistent with microvascular disease changes. 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 Normal brainstem. There is mild cerebellar atrophy. There is no intracranial hemorrhage. There are no findings of an acute ischemic infarction. Normal visualized paranasal sinuses. CT/Brain/Head without Contrast IMPRESSION: There is NO acute intracranial abnormality. Electronically Signed: Anuel De León MD at 7:15 EDT , Service support ,
--- NOTE | 2019-12-22 06:24 | ED.DCSUM_ITS ---
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 No diplopia., Photophobia. Negative for: Fever, Sore Throat, Numbness, Visual Loss Injury: - - No injury or fall Narrative: Patient states she was walking around the bed to get in the bed, she felt a little lightheaded, got into bed, had sudden onset of the severe headache. No thunderclap or loss of consciousness. States she has never had a headache like this before. No recent head injury, no recent illnesses. According to EMS, blood pressure in the 220 range. Patient states that yesterday she was at her doctor's office for a routine checkup and everything was good, including her blood pressure, which was 120's/60's. She states that what it usually runs. 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 She usually gets Botox injections about every 3 months, she recently missed 1 and has an appointment later today for it, her tics have been a little worse, but she has never had headaches with any of that. <Ricky Koroma - Last Filed: 12/22/19 07:19> <Price Bliss - Last Filed: 12/22/19 07:53> Chief Complaint: Headache - Past Medical History (1) Dystonia Status: Chronic (2) SVT (supraventricular tachycardia) Status: Chronic (3) Essential hypertension Status: Chronic (4) GERD (gastroesophageal reflux disease) Status: Chronic (5) Nonrheumatic mitral (valve) prolapse Status: Chronic (6) Paroxysmal atrial fibrillation Status: Chronic (7) Ventricular ectopy Status: Chronic <Ricky Koroma - Last Filed: 12/22/19 07:19> Past Medical History Surgical History: cataract - Bilateral, hysterectomy - With bilateral salpingo- oophorectomy, - - Surgery on the left knee to repair a torn meniscus and fractured tibial plateau Lives: Spouse/ Significant Other Smoking Status: Never smoker - Family History Maternal Family History: Family History (Last Reviewed 11/05/18 @ 11:09 by Alem Gates) Father CHF (congestive heart failure) Family History: Reports: No pertinent history <Ricky Koroma - Last Filed: 12/22/19 07:19> - Family History Maternal Family History: Family History (Last Reviewed 11/05/18 @ 11:09 by Alem Gates) Father CHF (congestive heart failure) <Price Bliss - Last Filed: 12/22/19 07:53> - Allergies and Home Meds Allergies/Adverse Reactions: Allergies bee venom protein (honey bee) Allergy (Verified 12/22/19 06:48) Anaphylaxis also wasps latex Allergy (Verified 12/22/19 06:48) Rash Penicillins Allergy (Verified 12/22/19 06:48) Rash Primary Care Physician: Antonio Garsia DO [Primary Care Provider] - Review of Systems General: Denies: Chills, Fever, Sweats Eyes: Reports: Blurred Vision - bilaterally, - - Photophobia. Denies: Diplopia ENT: Denies: Bilateral ear pain, Rhinorrhea, Sore throat Cardiovascular: Denies: Chest pain, Palpitations Respiratory: Denies: Dyspnea, Cough, Dyspnea on exertion Gastrointestinal: Reports: Nausea. Denies: Abdominal pain, Vomiting, Diarrhea, Melena, Hematochezia Genitourinary: Denies: Dysuria, Hematuria, Frequency Musculoskeletal: Denies: Neck pain, Back pain, Extremity Pain Skin: Denies: Rash, Wounds Neurological: Reports: Headache. Denies: Weakness, Numbness <Ricky Koroma - Last Filed: 12/22/19 07:19> Physical Exam Vital Signs/Narrative: Vital Signs Temp Pulse Resp BP Pulse Ox 12/22/19 06:17 98.5 F 69 16 212/87 H 95 Inital Vital Signs reviewed: Yes General: Well nourished, Well developed, - - uncomfortable, NAD Head: NC, AT Eyes: Perrl - 1-2 mm, EOMI ENT: Moist mucous membranes, No rhinorrhea, - - TMs occluded by hard cerumen bilaterally. Negative for: Sinus tenderness Neck: Supple, No Lymphadenopathy, Nontender, No Meningismus Cardiovascular: Regular rate, Regular rhythm, No murmurs. Negative for: Tachycardia Respiratory: No distress, CTA bilaterally, Chest nontender Abdomen: Soft, Nontender, Nondistended, Normal bowel sounds Back: Nontender, Normal Inspection Extremities: Nontender, No edema Skin: Normal color, No rash, No Trauma Neuro: Alert, Oriented x3, Cranial nerves II-XII grossly intact, Normal Strength, Normal Sensation, Normal DTR, Normal Gait Psychological: Normal affect, Normal Mood - NIH Stroke Scale 1a Level of Consciousness: 0 1b LOC Questions (Score 2 if aphasic/stupor): 1 - Patient initially gets the month wrong 1c LOC Commands (Only score 1st attempt): 0 2 Best Gaze (If aphasic, use reflexive mvmts.): 0 3 Visual: 0 4 Facial Palsy: 0 5 Motor Arm Right (UN = amputation/fusion): 0 5 Motor Arm Left: 0 6 Motor Leg Right: 0 6 Motor Leg Left: 0 7 Limb ataxia (Only + if out of proportion): 0 8 Sensory (Aphasia/stupor=0 or 1, coma=2): 0 9 Best Language: 0 10 Dysarthria (mute, coma=2, intubated=UN): 0 11 Extinction and Inattention (only scored if +): 0 Total Score: 1 <Ricky Koroma - Last Filed: 12/22/19 07:19> Vital Signs/Narrative: Vital Signs Temp Pulse Resp BP Pulse Ox 12/22/19 07:50 85 20 H 166/64 H 97 12/22/19 06:51 76 167/101 H 96 12/22/19 06:17 98.5 F 69 16 212/87 H 95 <Price Bliss - Last Filed: 12/22/19 07:53> Diagnostic/Tx/Re-eval Impressions Brain CT 12/22/19 06:23 IMPRESSION: There is NO acute intracranial abnormality. Electronically Signed: Anuel De León MD at 7:15 EDT , Service support , 12/22/19 06:23 Brain/Head without Contrast [CT] Stat 12/22/19 06:59 CTA Head AND Neck W/ Contrast [CT] Stat Laboratory Results 12/22/19 12/22/19 06:20 06:20 WBC 10.7 RBC 4.72 Hgb 12.8 Hct 41.3 MCV 87.5 MCH 27.1 MCHC 31.0 L RDW Std Deviation 46.5 H RDW Coeff of Casi 14.6 Plt Count 243 MPV 10.4 Immature Gran % (Auto) 0.400 Neut % (Auto) 64.1 Lymph % (Auto) 27.7 Rich % (Auto) 6.3 Eos % (Auto) 0.9 Baso % (Auto) 0.6 Absolute Neuts (auto) 6.9 Absolute Lymphs (auto) 2.96 Nucleated RBC % 0 Sodium 140 Potassium 3.9 Chloride 106 Carbon Dioxide 29.0 Anion Gap 5 BUN 22 H Creatinine 0.98 Estim Creat Clear Calc 43.04 Est GFR (MDRD) Af Amer 70 Est GFR (MDRD) Non-Af 58 L BUN/Creatinine Ratio 22.5 H Glucose 134 H Calcium 9.2 - Medical Decision Making Patient was given hydralazine since her heart rate was in the mid 60s, and Reglan prior to testing/imaging. Her CT shows no acute hemorrhage, and her labs are unremarkable. Returning from CT, her blood pressure is 167/101 and she still has a severe headache. Given the timing and the concern with a ruptured c erebral aneurysm with subarachnoid hemorrhage in the differential diagnosis, I sent her back for CT angiography to rule this out. That is pending, the patient is still uncomfortable, I hesitate to give her more antihypertensives right now since she came down so quickly with the hydralazine and may continue to come down, so I am continuing to watch her but likely her heart rate has improved to the 70s. Suspect we will be admitting her unless we fix both her headache and her blood pressure, discussed with the oncoming emergency physician for final disposition. <Ricky Koroma - Last Filed: 12/22/19 07:19> - Medical Decision Making Dr. Bliss-this patient was signed out to me to follow-up on CT angiogram results. This shows no evidence of aneurysm. Patient has had some improvement of her pain on reevaluation by about 30%. Her blood pressure is also improved to the 160s systolic. Dr. Koroma he also ordered IV Depakote. At this point I suspect this is more related to hypertensive urgency. Patient will be discussed with the hospitalist and admitted. <Price Bliss - Last Filed: 12/22/19 07:53> Disposition: Admit to PCU <Price Bliss - Last Filed: 12/22/19 07:53> ED Disposition <Ricky Koroma - Last Filed: 12/22/19 07:19> <Price Bliss - Last Filed: 12/22/19 07:53> - Plan for ED Patient: Disposition: Acute Care Hospital [facility] Diagnosis: Acute headache, Hypertensive urgency Referrals: Antonio Garsia DO [Primary Care Provider] -
[2019-12-22] MEDS: 0.9% Normal Saline 1,000 ML 150 ML IV (06:29)
[2019-12-22] MEDS: Metoclopramide 10 MG/2 ML Vial 5 MG IV (06:33)
[2019-12-22] MEDS: hydrALAZINE 20 MG/ML Vial 10 MG IV (06:35)
[2019-12-22 06:42] LABS: Absolute Lymphocyte Count 2.96 X10^3/uL (0.83-4.51); Absolute Neutrophil Count 6.9 X10^3/uL (2.0-7.7); Basophil# 0.06 X10^3/uL; Basophil% 0.6 % (0-1); Eosinophils% 0.9 % (0-5); Hematocrit 41.3 % (37-47); Hemoglobin 12.8 g/dL (12.0-15.0); Lymphocyte # 2.96 X10^3/ul (4.0); Lymphocyte % 27.7 % (19-41); Mean Corpuscular Hgb 27.1 pg (27.0-32.0); Mean Corpuscular Volume 87.5 fL (81-99); Mean Platelet Vol. 10.4 fl (6.2-12.0); Monocyte# 0.67 X10^3/uL; Monocyte% 6.3 % (0-10); NRBC Flagged by Analyzer 0 % (0-5); Neutrophil # 6.85 X10^3/uL (2.7-7.7); Neutrophil % 64.1 % (47-70); Platelet Count 243 K/mm3 (150-450); RBC Distribution Width CV 14.6 % (11.6-14.6); RBC Distribution Width SD 46.5 fl (35.1-43.9); Red Blood Count 4.72 M/mm3 (4.2-5.4); White Blood Count 10.7 K/mm3 (4.4-11.0)
[2019-12-22 06:55] LABS: Anion Gap 5 (5-15); BUN 22 mg/dL (7-18); BUN/Creat Ratio 22.5 RATIO (10-20); Calcium,Total 9.2 mg/dL (8.5-10.1); Chloride 106 mmol/L (98-107); Creatinine, Serum 0.98 mg/dL (0.55-1.02); EST Glomerular Filtration Rate 58 mL/min (>60); Est Glom Filt Rate - Afr Amer 70 mL/min (>60); Estimated Creatinine Clearance 43.04 ml/min; Glucose 134 mg/dL (74-106); Potassium 3.9 mmol/L (3.5-5.1); Sodium Level 140 mmol/L (136-145)
--- NOTE | 2019-12-22 06:59 | CT_ITS ---
STUDY: CTA HEAD AND NECK WITH CONTRAST REASON FOR EXAM: Female, 84 years old. HEADACHE RADIATION DOSAGE (If Supplied By Facility): CTDIvol = ( 21.49 ) mGy, DLP = ( 702.22 ) mGycm TECHNIQUE: CT angiography was performed with a multi-detector CT scanner. Data acquisition was obtained from the skull base through the vertex following intravenous administration of 10 ML ISOVUE 370. MIP images were reconstructed from the axial data set. Post-processing of the angiographic images was performed, with multiplanar reformation and 3D reconstruction. Individualized dose optimization techniques were used for this CT. COMPARISON: No relevant priors. FINDINGS: Normal bilateral petrous carotid arteries. There is calcified plaque formation of the right cavernous carotid artery, without a cross-sectional luminal stenosis. There is calcified plaque formation of the left cavernous carotid artery, without a cross-sectional luminal stenosis. Normal right A1 segments of the anterior cerebral artery. There is hypoplastic development of the left A1 segment of the anterior cerebral arteries with an atretic but intact artery. Normal intact anterior communicating artery (ACOM). Normal bilateral A2 segments of the anterior cerebral arteries. Normal right M1 and M2 segments of the middle cerebral arteries, with a normal M1 bifurcation. Normal left M1 and M2 segments of the middle cerebral arteries, with a normal M1 bifurcation. Normal right posterior communicating artery (PCOM). Normal left posterior communicating artery (PCOM). Normal bilateral vertebral arteries. Normal basilar artery with a normal basilar bifurcation. The visualized bilateral superior cerebellar (SCA) arteries are normal. Normal bilateral P1, P2 and visualized P3 segments of the posterior cerebral arteries. There is no demonstrated aneurysm of the ewiiaapaayp of [place]. There is no demonstrated abnormality of the visualized brain. AORTIC ARCH: There is atherosclerotic calcific plaque formation of the aortic arch and great vessels arising from the aortic arch, without a hemodynamically significant stenosis. There is a normal origin of the brachiocephalic, left common carotid, and left subclavian arteries. Normal origins of the brachiocephalic, left common carotid, and left subclavian arteries. RIGHT CAROTID ARTERIES: Normal right common carotid artery (CCA). There is mild atherosclerotic plaque formation with minimal narrowing of the right carotid bulb. There is mild atherosclerotic plaque formation of the origin of the right internal carotid artery with less than 50% cross sectional diameter stenosis. There is atherosclerotic tortuous elongation of the cervical portion of the right internal carotid artery. Normal origin of the right external carotid artery (ECA). LEFT CAROTID ARTERIES: Normal left common carotid artery (CCA). There is extensive atherosclerotic plaque formation with severe narrowing of the carotid bulb with a hemodynamically significant stenosis. There is extensive atherosclerotic plaque formation of the origin of the left internal carotid artery with an estimated stenosis of greater than 70%. There is atherosclerotic tortuous elongation of the cervical portion of the left internal carotid artery. Normal origin of the left external carotid artery (ECA). VERTEBRAL ARTERIES: Normal bilateral vertebral arteries. CT/CTA Head AND Neck W/ Contrast IMPRESSION: 1. There is NO intracranial arterial stenosis or occlusion. 2. There is calcified plaque at the carotid bulbs with moderate stenosis on the LEFT. There is NO dissection or occlusion. Electronically Signed: Anuel De León MD at 7:36 EDT , Service support ,
[2019-12-22] MEDS: Ondansetron 4 MG/2 ML Vial IV (07:31)
--- NOTE | 2019-12-22 07:58 | HP.PCM_ITS ---
History of Present Illness Date of Admission: 12/22/19 Chief Complaint: headache The patient is a 84 year old F with a PMH as outlined who was admitted via the ED on 12/22/2019 with a complaint of severe headache. She states she woke up with a headache and was a very severe headache. Headache was worsened by light and she denied any blurred vision, ringing in the ears, any weakness in any extremity or any other symptoms. She does admit to a history of migraines but states she has not had migraines in a long while. Review of symptoms otherwise negative. On admission, her blood pressure was 212/87. She said her blood pressures usually in the 120s over 60s. Vitals were otherwise stable. CBC was unremarkable and chemistry was also unremarkable. CT of the brain showed no acute intracranial abnormality and CTA of the head and neck showed no evidence of intracranial arterial stenosis or occlusion or calcified plaque at the carotid bulbs with moderate stenosis on the left with no dissection or occlusion. Blood pressure came down with IV hydralazine which she received in the ED. Blood pressure came down to the 160s. She has been admitted to be managed for hypertensive emergency and migratory headaches. [] Past Medical History Past Medical History (Chronic Problems): Chronic Problems (Last Reviewed 11/05/18 @ 11:09 by Alem Gates) Dystonia (Chronic) SVT (supraventricular tachycardia) (Chronic) GERD (gastroesophageal reflux disease) (Chronic) Nonrheumatic mitral (valve) prolapse (Chronic) Essential hypertension (Chronic) Ventricular ectopy (Chronic) Paroxysmal atrial fibrillation (Chronic) Medical History: Medical History (Last Reviewed 11/05/18 @ 11:09 by Alem Gates) Sinus tachycardia (Acute) R00.0 SVT (supraventricular tachycardia) (Chronic) I47.1 GERD (gastroesophageal reflux disease) (Chronic) K21.9 Nonrheumatic mitral (valve) prolapse (Chronic) I34.1 Essential hypertension (Chronic) I10 Ventricular ectopy (Chronic) I49.3 Paroxysmal atrial fibrillation (Chronic) I48.0 Torticollis M43.6 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 Allergies bee venom protein (honey bee) Allergy (Verified 12/22/19 06:48) Anaphylaxis also wasps latex Allergy (Verified 12/22/19 06:48) Rash Penicillins Allergy (Verified 12/22/19 06:48) Rash Home Medications: Ambulatory Orders Medication Instructions Recorded Aspirin [Aspirin, Baby] 81 mg PO DAILY@0800 12/06/13 Multivitamins,Therapeutic 1 tab PO DAILY 12/06/13 [Multivitamin] Melatonin 10 mg PO QHS 01/15/17 magnesium 250 mg tablet 500 mg PO DAILY tab 11/05/18 metoprolol succinate 25 mg 25 mg PO DAILY #30 tab 11/05/18 tablet,extended release 24 hr digoxin 125 mcg (0.125 mg) tablet 125 mcg PO DAILY #90 tab 03/05/19 cholecalciferol (vitamin D3) 25 2,000 unit PO DAILY cap 04/28/19 mcg (1,000 unit) capsule Surgical History: Surgical History (Last Reviewed 11/05/18 @ 11:09 by Alem Gates) History of knee surgery Z98.890 History of lumpectomy of left breast Z98.890 History of tonsillectomy and adenoidectomy Z98.890 History of total hysterectomy Z90.710 Surgical History: cataract - Bilateral, hysterectomy - With bilateral salpingo- oophorectomy, - - Surgery on the left knee to repair a torn meniscus and fractured tibial plateau 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 Denies: Chills, Fever, Weight Change Eyes: Reports: - - photophobia. Denies: Blurred vision, Double vision, Pain, Redness, Vision Change HEENT: Denies: Head Aches, Sinus Congestion, Sinus Drainage Cardiovascular: Denies: Chest Pain, Palpitations Respiratory: Denies: Cough, Shortness of Breath, Shortness of breath at rest, Shortness of breath upon exertion, Sputum production Gastrointestinal: Denies: Abdominal Pain, Nausea, Vomiting Genitourinary: Denies: Dysuria Musculoskeletal: Denies: Joint Pain, Joint Tenderness Skin: Denies: Rash, Wounds Neurological: Reports: Headaches. Denies: Blurred vision, Double vision, Change in Speech, Slurred speech, Confusion, Focal weakness, Numbness, Tingling, Tremor, Seizures Psychiatric: Denies: Anxiety, Depression, Homicidal Ideations, Suicidal Ideations Hematologic/ Lymphatic: Denies: Easy Bruising, Easy Bleeding VTE Information - Inpt Only VTE Present on Admission: No VTE Pharm Prophylaxis ordered?: Yes Patient Problems: Active and Suspected Problems (Last Reviewed 11/05/18 @ 11:09 by Alem Gates) Acute headache (Acute) Hypertensive urgency (Acute) - Physical Exam Vitals/I&O's: Vital Signs Temp Pulse Resp BP Pulse Ox 98.5 F 85 20 H 166/64 H 97 12/22/19 06:17 12/22/19 07:50 12/22/19 07:50 12/22/19 07:50 12/22/19 07:50 Oxygen Delivery Method Room Air Weight: 182 lb 1.629 oz Body Mass Index (BMI) 28.5 Finger Stick Blood Glucose 121 General: Alert, Oriented x3, Cooperative, Lethargic HEENT: Atraumatic, PERRLA, EOMI, Normocephalic Oral: Dry Mucosa Neck: Supple, No JVD, Negative Carotid Bruits Lungs: Clear to auscultation, Normal air movement, No rhonchi, No wheeze Cardiovascular: Regular rate, Regular Rhythm, Normal S1, Normal S2, No murmurs Abdomen: Bowel Sounds Present, Soft, Non Tender, Non-Distended, No Hepato- splenomegaly Extremities: No clubbing, No cyanosis, No edema, Capillary Refill Less than 3 Seconds Skin: No rashes, No breakdown Musculoskeletal: No Tenderness to Palpation of Joints or Extremities Lymphatic: No Cervical, Supraclavicular, or Inguinal Adenopathy Neurological: Cranial nerves II-XII grossly intact, Neuro grossly intact Psych/Mental Status: Normal Affect, Appropriate, Alert and oriented to time, place, person, mood and affect Laboratory Results 12/22/19 06:20: WBC 10.7, RBC 4.72, Hgb 12.8, Hct 41.3, MCV 87.5, MCH 27.1, MCHC 31.0 L, RDW Std Deviation 46.5 H, RDW Coeff of Casi 14.6, Plt Count 243, MPV 10.4, Immature Gran % (Auto) 0.400, Neut % (Auto) 64.1, Lymph % (Auto) 27.7, [place] % (Auto) 6.3, Eos % (Auto) 0.9, Baso % (Auto) 0.6, Absolute Neuts (auto) 6.9, Absolute Lymphs (auto) 2.96, Nucleated RBC % 0 12/22/19 06:20: Sodium 140, Potassium 3.9, Chloride 106, Carbon Dioxide 29.0, Anion Gap 5, BUN 22 H, Creatinine 0.98, Estim Creat Clear Calc 43.04, Est GFR (MDRD) Af Amer 70, Est GFR (MDRD) Non-Af 58 L, BUN/Creatinine Ratio 22.5 H, Glucose 134 H, Calcium 9.[address] 12/22/19 06:23 IMPRESSION: There is NO acute intracranial abnormality. Electronically Signed: Anuel De León MD at 7:15 EDT , Service support , Head/Neck CTA 12/22/19 06:59 IMPRESSION: 1. There is NO intracranial arterial stenosis or occlusion. 2. There is calcified plaque at the carotid bulbs with moderate stenosis on the LEFT. There is NO dissection or occlusion. Electronically Signed: Anuel De León MD at 7:36 EDT , Service support , Current Medications Sodium Chloride () 1,000 mls @ 150 mls/hr IV .Q6H40M [facility] Last Admin: 12/22/19 06:29 Dose: 150 mls/hr Documented by: Sodium Chloride 1,000 ml/ N/A 1,000 mls @ 82.6 mls/hr IV .Q12H7M TASIA Stop: 12/23/19 07:06 Last Admin: 12/22/19 07:34 Dose: 1 ml/kg/hr, 82.6 mls/hr Documented by: Valproic Acid 500 mg/ Dextrose 55 mls @ 50 mls/hr IV X1 ONE Stop: 12/22/19 08:46 Assessment/Plan All Active Problems (Last Reviewed 11/05/18 @ 11:09 by Alem Gates) Acute headache (Acute) Hypertensive urgency (Acute) Sinus tachycardia (Acute) Syncope (Resolved) Dehydration (Resolved) Elevated serum creatinine (Resolved) 84 y/o admitted with a complaint of headache and found to have elevated BP 1. Hypertensive emergency * Blood pressure was over 200 systolic on admission * Pressure came down to the 160s with administration of IV hydralazine. CT of the brain was negative for any acute intracranial pathology and CTA of the head and neck showed no intracranial arterial stenosis or occlusion and showed a calcified plaque at the carotid bulbs with moderate stenosis on the left but no dissection or occlusion. * BP now 165/103; blood pressure usually runs in the 120 systolic. * P.o. metoprolol, however this is for A. fib according to her. We will continue p.o. metoprolol 25 mg daily and adjust dose as needed for blood pressure. * 2. Migrainoid headache * patient does have a history of migraine headache, though she says she hasnt had any for hte last 20 years * cannot give triptans o/a of markedly eelevated BP * give IV solumedrol and IV ketorolac to help with headache. * PO tylenol prn. * 3. Afib: * currently in sinus rhythm. rate controlled. * on metoprolol and digoxin. * Will check digoxin level * DVT prophylaxis: SCDs Code status: DNRCCA * Patient counseled extensively about different types of CODE STATUS including full code, DNR CCA and DNR CCA. Patient elects to be DNRCCA- no intubation. * Total jyul-ic-iddm time 16 minutes. OBSV E&M: 35524 Initial observation care L3 Procedures: 68804 Advncd Care Plan 30 Min
--- NOTE | 2019-12-22 07:58 | NURSING ---
PCU [facility], HEADACHE
--- NOTE | 2019-12-22 09:09 | NURSING ---
pt's antonino updated on POC
--- NOTE | 2019-12-22 09:55 | CASEMGMT ---
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 RN JUDY introduced self and role at [facility].? Pt voices understanding and consents to assessment at this time.? Pt resting in bed in, stating that headache is improving. Pt is A/O at this time and answers all questions appropriately.?? Care providers, pharmacy, and demographics verified/updated at this time. PCP:Dr Antonio Grasia Specialists:None Preferred Pharmacy: [facility] Insurance:[facility], [place] Prescription Benefit:?Yes Living Will/HPOA:? Has both LW and Healthcare POA, who is her , Frida LNOK: , Frida. Son, Nitish. Daughter, Marietta Living Arrangements: Lives with her in one-story home w/one step to enter. Independent with ADL's. and pt share home mgmt tasks. Transportation: Pt states drives self and states no transportation concerns at this time.? drives and will take her home @ d/c DME: ? Has a cane but rarely uses it. Pt states no need for further DME at this time.? HHC[facility]SNF: [facility]. No history of HHC. Denies needs for OP therapy or HHC at d/c. Pt wishes to return home and states has no concerns with going home at time of discharge.? CM to follow for any discharge planning/needs.? Pt voices no concerns/needs at this time.? Advised pt to ask for CM if any further questions/concerns/needs arise.? Voices understanding. PLAN: ?Home Nara PATRICK RN, CM
[2019-12-22] MEDS: Aspirin 81 MG TAB.CHEW PO (12:09)
[2019-12-22] MEDS: Multivitamins,Therapeutic Tablet 1 TABLET PO (12:09)
[2019-12-22] MEDS: Metoprolol(XL)Succ 25 MG Tablet PO (12:10)
[2019-12-22] MEDS: Enoxaparin 40 MG/0.4 ML Syringe SC (12:12)
[2019-12-22] MEDS: Digoxin 125 MCG Tablet PO (12:12)
[2019-12-22 13:22] LABS: Digoxin Level 0.72 ng/mL (0.80-2.00)
[2019-12-22] MEDS: 0.9% Saline Lock 10 ML Syringe IV (14:34)
[2019-12-22] MEDS: MELATONIN 10 MG TABLET PO (21:07)
[2019-12-23 02:59] VITALS: PULSE 70
[2019-12-23 03:20] VITALS: BP 130/70; PULSE 89; RESP 14; TEMP 36.7; O2SAT 94
[2019-12-23 06:00] LABS: Absolute Lymphocyte Count 1.56 X10^3/uL (0.83-4.51); Basophil# 0.01 X10^3/uL; Basophil% 0.1 % (0-1); Eosinophil# 0.01 X10^3/uL; Eosinophils% 0.1 % (0-5); Hematocrit 40.7 % (37-47); Hemoglobin 12.5 g/dL (12.0-15.0); Lymphocyte # 1.56 X10^3/ul (4.0); Mean Corp Hgb Conc 30.7 g/dL (32-36); Mean Corpuscular Hgb 26.8 pg (27.0-32.0); Mean Corpuscular Volume 87.3 fL (81-99); Mean Platelet Vol. 10.2 fl (6.2-12.0); Monocyte# 0.12 X10^3/uL; Monocyte% 1.8 % (0-10); NRBC Flagged by Analyzer 0 % (0-5); Neutrophil # 5.04 X10^3/uL (2.7-7.7); Neutrophil % 74.6 % (47-70); Platelet Count 242 K/mm3 (150-450); RBC Distribution Width CV 14.6 % (11.6-14.6); RBC Distribution Width SD 46.9 fl (35.1-43.9); Red Blood Count 4.66 M/mm3 (4.2-5.4); White Blood Count 6.8 K/mm3 (4.4-11.0)
[2019-12-23 06:28] LABS: Anion Gap 6 (5-15); BUN 26 mg/dL (7-18); BUN/Creat Ratio 22.2 RATIO (10-20); Calcium,Total 9.1 mg/dL (8.5-10.1); Chloride 106 mmol/L (98-107); Creatinine, Serum 1.17 mg/dL (0.55-1.02); EST Glomerular Filtration Rate 47 mL/min (>60); Est Glom Filt Rate - Afr Amer 57 mL/min (>60); Estimated Creatinine Clearance 36.05 ml/min; Glucose 155 mg/dL (74-106); Potassium 4.7 mmol/L (3.5-5.1); Sodium Level 140 mmol/L (136-145)
[2019-12-23] MEDS: 0.9% Saline Lock 10 ML Syringe IV (06:36)
[2019-12-23 06:40] VITALS: PULSE 96
[2019-12-23 08:17] VITALS: BP 151/87; PULSE 80; RESP 16; TEMP 36.6; O2SAT 94
[2019-12-23] MEDS: Aspirin 81 MG TAB.CHEW PO (08:19)
[2019-12-23 08:20] VITALS: PULSE 82
[2019-12-23] MEDS: Multivitamins,Therapeutic Tablet 1 TABLET PO (08:20)
[2019-12-23] MEDS: Digoxin 125 MCG Tablet PO (08:20)
[2019-12-23] MEDS: Metoprolol(XL)Succ 25 MG Tablet PO (08:20)
--- NOTE | 2019-12-23 10:42 | DS.PCM_ITS ---
Discharge Date and Diagnosis Date of Admission: 12/22/19 Date of Discharge: 12/23/19 - Primary Discharge Diagnosis Acute Problems: Active Problems (Last Reviewed 11/05/18 @ 11:09 by Alem Gates) Acute headache (Acute) Hypertensive urgency (Acute) - Secondary Discharge Diagnosis Chronic Problems: Chronic Problems (Last Reviewed 11/05/18 @ 11:09 by Alem Gates) Dystonia (Chronic) SVT (supraventricular tachycardia) (Chronic) GERD (gastroesophageal reflux disease) (Chronic) Nonrheumatic mitral (valve) prolapse (Chronic) Essential hypertension (Chronic) Ventricular ectopy (Chronic) Paroxysmal atrial fibrillation (Chronic) Hospital Course and Treatment Imaging Results: Diagnostic Data Brain CT 12/22/19 06:23 IMPRESSION: There is NO acute intracranial abnormality. Electronically Signed: Anuel De León MD at 7:15 EDT , Service support , Head/Neck CTA 12/22/19 06:59 IMPRESSION: 1. There is NO intracranial arterial stenosis or occlusion. 2. There is calcified plaque at the carotid bulbs with moderate stenosis on the LEFT. There is NO dissection or occlusion. Electronically Signed: Anuel De León MD at 7:36 EDT , Service support , Operations: None Procedures: None Summary of Care Provided: The patient is a 84 year old F with a PMH as outlined who was admitted via the ED on 12/22/2019 with a complaint of severe headache. She states she woke up with a headache and was a very severe headache. Headache was worsened by light and she denied any blurred vision, ringing in the ears, any weakness in any extremity or any other symptoms. She does admit to a history of migraines but states she has not had migraines in a long while. Review of symptoms otherwise negative. On admission, her blood pressure was 212/87. She said her blood pressures usually in the 120s over 60s. Vitals were otherwise stable. CBC was unremarkable and chemistry was also unremarkable. CT of the brain showed no acute intracranial abnormality and CTA of the head and neck showed no evidence of intracranial arterial stenosis or occlusion or calcified plaque at the carotid bulbs with moderate stenosis on the left with no dissection or occlusion. Blood pressure came down with IV hydralazine which she received in the ED. Blood pressure came down to the 160s. She was admitted to be managed for hypertensive emergency and migratory headaches. She was started on IV solumedrol and IV ketorolac. BP improved significantly and headache also resolved. Patient remained stable and was discharged home on 12.23.2019. Patient stated that she had been getting Botox shots and that had helped with her headaches significantly. However she had not been able to get her last Botox shot on account of the COVID pandemic and she thinks that this was likely the cause of her headache. She plans to follow-up with a neurologist in [place] as soon as possible for her Botox shots. Patient seen and examined prior to discharge. She had no complaints. Review of symptoms otherwise negative. Labs and vitals reviewed. Home medication reviewed and reconciled. o/e: Vital Signs Temp Pulse Resp BP Pulse Ox 97.8 F 82 16 122/52 H 94 12/23/19 08:17 12/23/19 08:20 12/23/19 08:17 12/23/19 10:55 12/23/19 08:17 General: Alert, Oriented x3, Cooperative HEENT: Atraumatic, PERRLA, EOMI, Normocephalic Oral: Dry Mucosa Neck: Supple, No JVD, Negative Carotid Bruits Lungs: Clear to auscultation, Normal air movement, No rhonchi, No wheeze Cardiovascular: Regular rate, Regular Rhythm, Normal S1, Normal S2, No murmurs Abdomen: Bowel Sounds Present, Soft, Non Tender, Non-Distended, No Hepato- splenomegaly Extremities: No clubbing, No cyanosis, No edema, Capillary Refill Less than 3 Seconds Skin: No rashes, No breakdown Musculoskeletal: No Tenderness to Palpation of Joints or Extremities Lymphatic: No Cervical, Supraclavicular, or Inguinal Adenopathy Neurological: Cranial nerves II-XII grossly intact, Neuro grossly intact Psych/Mental Status: Normal Affect, Appropriate, Alert and oriented to time, place, person, mood and affect - Physical Exam Vitals/I&O's: Vital Signs Temp Pulse Resp BP Pulse Ox 97.8 F 82 16 151/87 H 94 12/23/19 08:17 12/23/19 08:20 12/23/19 08:17 12/23/19 08:17 12/23/19 08:17 Oxygen Delivery Method Room Air Weight: 170 lb 6.677 oz Body Mass Index (BMI) 26.6 Finger Stick Blood Glucose 121 Intake and Output for Last 24 Hours 12/21/19 12/22/19 12/23/19 23:59 23:59 23:59 Intake Total / 100 / Balance / 100 / Laboratory Results 12/22/19 06:20: Digoxin 0.72 L 12/23/19 05:27: WBC 6.8, RBC 4.66, Hgb 12.5, Hct 40.7, MCV 87.3, MCH 26.8 L, MCHC 30.7 L, RDW Std Deviation 46.9 H, RDW Coeff of Casi 14.6, Plt Count 242, MPV 10.2, Immature Gran % (Auto) 0.400, Neut % (Auto) 74.6 H, Lymph % (Auto) 23.0, [place] % (Auto) 1.8, Eos % (Auto) 0.1, Baso % (Auto) 0.1, Absolute Neuts (auto) 5.0, Absolute Lymphs (auto) 1.56, Nucleated RBC % 0 12/23/19 05:27: Sodium 140, Potassium 4.7, Chloride 106, Carbon Dioxide 28.0, Anion Gap 6, BUN 26 H, Creatinine 1.17 H, Estim Creat Clear Calc 36.05, Est GFR (MDRD) Af Amer 57 L, Est GFR (MDRD) Non-Af 47 L, BUN/Creatinine Ratio 22.2 H, Glucose 155 H, Calcium 9.1 Current Medications Acetaminophen (Tylenol) 650 mg PO Q6H PRN PRN PRN Reason: Pain Score 1-10/Temp > 100.7 F Aspirin (Aspirin, Baby) 81 mg PO DAILY@0800 [facility] Last Admin: 12/23/19 08:19 Dose: 81 mg Documented by: Cholecalciferol (Vitamin D (25mcg)) 2,000 unit PO DAILYCM [facility] Last Admin: 12/23/19 08:20 Dose: 2,000 unit Documented by: Dextrose (D50w Syringe) 0 gm IV X1 PRN; Protocol PRN Reason: Hypoglycemia Digoxin (Lanoxin) 125 mcg PO DAILY [facility] Last Admin: 12/23/19 08:20 Dose: 125 mcg Documented by: Glucagon () 1 mg IM .X1 PRN PRN Reason: Hypoglycemia Ketorolac Tromethamine (Toradol (Bkc)) 15 mg IV Q6H PRN PRN PRN Reason: HEADACHE Stop: 12/27/19 10:28 Melatonin (Melatonin) 10 mg PO QHS [facility] Last Admin: 12/22/19 21:07 Dose: 10 mg Documented by: Methylprednisolone (Solu-Medrol) 40 mg IV Q8 [facility] Last Admin: 12/23/19 06:36 Dose: 40 mg Documented by: Metoprolol Succinate (Toprol Xl (Beta Vishal)) 25 mg PO DAILY [facility] Last Admin: 12/23/19 08:20 Dose: 25 mg Documented by: Multivitamins (Multivitamin) 1 tablet PO DAILYCM [facility] Last Admin: 12/23/19 08:20 Dose: 1 tablet Documented by: Ondansetron HCl (Zofran) 4 mg IV Q8H PRN PRN PRN Reason: NAUSEA/VOMITING Sodium Chloride () 10 - 40 ml IV UD PRN PRN Reason: SALINE FLUSH Last Admin: 12/23/19 06:36 Dose: 10 ml Documented by: Discharge Diet: Low fat/ Low Cholesterol Discharge Activity: Return to Normal Activity Weight Bearing Status: Weight bearing as tolerated Home Medications: Medications to take at Discharge Aspirin [Aspirin, Baby] 81 mg PO DAILY@0800 12/06/13 Multivitamins,Therapeutic [Multivitamin] 1 tab PO DAILY 12/06/13 Melatonin 10 mg PO QHS 01/15/17 magnesium 250 mg tablet 500 mg PO DAILY tab 11/05/18 metoprolol succinate 25 mg tablet,extended release 24 hr 25 mg PO DAILY #30 tab 11/05/18 digoxin 125 mcg (0.125 mg) tablet 125 mcg PO DAILY #90 tab 03/05/19 cholecalciferol (vitamin D3) 25 mcg (1,000 unit) capsule 2,000 unit PO DAILY cap 04/28/19 predniSONE tablet 40 mg PO DAILY #10 tab 12/23/19 Following Prescrptions Were Given to Patient: predniSONE tablet 40 mg PO DAILY #10 tab Transmission Status: Received by [facility]/pharmacy #[id number] Primary Care Physician: Antonio Garsia, [Primary Care Provider] - Please follow up with your Primary Care Physician in: 1 week Patient Instructions: What Are Migraine and Tension Headaches?, Self-Care for Headaches, Understanding Headache Pain Disposition: Home Minutes spent on discharge:: 35 Patient Condition:: Stable Medical Necessity - Tobacco Use Smoking Status: Never smoker Meaningful Use Info Meaningful Use Diagnoses (Choose all that apply): None applicable OBSV E&M: 50867 Observation care discharge
--- NOTE | 2019-12-23 10:42 | PCM.DC.SUM ---
Discharge Date and Diagnosis - Problem List Patient Problems: Active and Suspected Problems (Last Reviewed 11/05/18 @ 11:09 by Alem Gates) Acute headache (Acute) Hypertensive urgency (Acute) Date of Admission: 12/22/19 Date of Discharge: 12/23/19 - Primary Discharge Diagnosis Acute Problems: Active Problems (Last Reviewed 11/05/18 @ 11:09 by Alem Gates) Acute headache (Acute) Hypertensive urgency (Acute) - Secondary Discharge Diagnosis Chronic Problems: Chronic Problems (Last Reviewed 11/05/18 @ 11:09 by Alem Gates) Dystonia (Chronic) SVT (supraventricular tachycardia) (Chronic) GERD (gastroesophageal reflux disease) (Chronic) Nonrheumatic mitral (valve) prolapse (Chronic) Essential hypertension (Chronic) Ventricular ectopy (Chronic) Paroxysmal atrial fibrillation (Chronic) Hospital Course and Treatment Operations: None Summary of Care Provided: The patient is a 84 year old F [] Patient Problems: Active and Suspected Problems (Last Reviewed 11/05/18 @ 11:09 by Alem Gates) Acute headache (Acute) Hypertensive urgency (Acute) - Physical Exam Vitals/I&O's: Vital Signs Temp Pulse Resp BP Pulse Ox 97.8 F 82 16 151/87 H 94 12/23/19 08:17 12/23/19 08:20 12/23/19 08:17 12/23/19 08:17 12/23/19 08:17 Oxygen Delivery Method Room Air Weight: 170 lb 6.677 oz Body Mass Index (BMI) 26.6 Finger Stick Blood Glucose 121 Intake and Output for Last 24 Hours 12/21/19 12/22/19 12/23/19 23:59 23:59 23:59 Intake Total 2030. / 2030. 100 / 100 Balance 2030. / 100 / 100 Laboratory Results 12/22/19 06:20: Digoxin 0.72 L 12/23/19 05:27: WBC 6.8, RBC 4.66, Hgb 12.5, Hct 40.7, MCV 87.3, MCH 26.8 L, MCHC 30.7 L, RDW Std Deviation 46.9 H, RDW Coeff of Casi 14.6, Plt Count 242, MPV 10.2, Immature Gran % (Auto) 0.400, Neut % (Auto) 74.6 H, Lymph % (Auto) 23.0, [place] % (Auto) 1.8, Eos % (Auto) 0.1, Baso % (Auto) 0.1, Absolute Neuts (auto) 5.0, Absolute Lymphs (auto) 1.56, Nucleated RBC % 0 12/23/19 05:27: Sodium 140, Potassium 4.7, Chloride 106, Carbon Dioxide 28.0, Anion Gap 6, BUN 26 H, Creatinine 1.17 H, Estim Creat Clear Calc 36.05, Est GFR (MDRD) Af Amer 57 L, Est GFR (MDRD) Non-Af 47 L, BUN/Creatinine Ratio 22.2 H, Glucose 155 H, Calcium 9.1 Current Medications Acetaminophen (Tylenol) 650 mg PO Q6H PRN PRN PRN Reason: Pain Score 1-10/Temp > 100.7 F Aspirin (Aspirin, Baby) 81 mg PO DAILY@0800 [facility] Last Admin: 12/23/19 08:19 Dose: 81 mg Documented by: Cholecalciferol ([facility]itamin [facility] (25mcg)) [facility] Admin: 12/23/19 08:20 Dose: 2,000 unit Documented by: Dextrose (D50w Syringe) 0 gm IV X1 PRN; Protocol PRN Reason: Hypoglycemia Digoxin (Lanoxin) 125 mcg PO DAILY [facility] Last Admin: 12/23/19 08:20 Dose: 125 mcg Documented by: Glucagon () 1 mg IM .X1 PRN PRN Reason: Hypoglycemia Ketorolac Tromethamine (Toradol (Bkc)) 15 mg IV Q6H PRN PRN PRN Reason: HEADACHE Stop: 12/27/19 10:28 Melatonin (Melatonin) 10 mg PO QHS [facility] Last Admin: 12/22/19 21:07 Dose: 10 mg Documented by: Methylprednisolone (Solu-Medrol) 40 mg IV Q8 [facility] Last Admin: 12/23/19 06:36 Dose: 40 mg Documented by: Metoprolol Succinate (Toprol Xl (Beta Vishal)) 25 mg PO DAILY [facility] Last Admin: 12/23/19 08:20 Dose: 25 mg Documented by: [facility]) [facility] Admin: 12/23/19 08:20 Dose: 1 tablet Documented by: Ondansetron HCl (Zofran) 4 mg IV Q8H PRN PRN PRN Reason: NAUSEA/VOMITING Sodium Chloride () 10 - 40 ml IV UD PRN PRN Reason: SALINE FLUSH Last Admin: 12/23/19 06:36 Dose: 10 ml Documented by: Home Medications: Medications to take at Discharge Aspirin [Aspirin, Baby] 81 mg PO DAILY@0800 12/06/13 Multivitamins,Therapeutic [Multivitamin] 1 tab PO DAILY 12/06/13 Melatonin 10 mg PO QHS 01/15/17 magnesium 250 mg tablet 500 mg PO DAILY tab 11/05/18 metoprolol succinate 25 mg tablet,extended release 24 hr 25 mg PO DAILY #30 tab 11/05/18 digoxin 125 mcg (0.125 mg) tablet 125 mcg PO DAILY #90 tab 03/05/19 cholecalciferol (vitamin D3) 25 mcg (1,000 unit) capsule 2,000 unit PO DAILY cap 04/28/19 predniSONE tablet 40 mg PO DAILY #10 tab 12/23/19 Following Prescrptions Were Given to Patient: predniSONE tablet 40 mg PO DAILY #10 tab Transmission Status: Pending to [facility]/pharmacy #[id number] Primary Care Physician: Antonio Garsia DO [Primary Care Provider] - Medical Necessity - Tobacco Use Smoking Status: Never smoker
--- NOTE | 2019-12-23 10:43 | DCINST_ITS ---
- Discharge Diagnoses Current Active Problems: Current Active and Chronic Problems (Last Reviewed 11/05/18 @ 11:09 by Alem Gates) Acute headache (Acute) Hypertensive urgency (Acute) You will use the following diet at home:: Cardiac Your food should be the consistency of: Regular Your liquids should be the consistency of: Regular/Thin Discharge Activity: Return to Normal Activity Weight Bearing Status: Weight bearing as tolerated Call your doctor if you observe: Fever of 101 or Higher, - - headache Instructions: What Are Migraine and Tension Headaches?, Self-Care for Headaches, Understanding Headache Pain Allergies/Adverse Reactions: Allergies bee venom protein (honey bee) Allergy (Verified 12/22/19 06:48) Anaphylaxis also wasps latex Allergy (Verified 12/22/19 06:48) Rash Penicillins Allergy (Verified 12/22/19 06:48) Rash Medications to take at Discharge Aspirin [Aspirin, Baby] 81 mg PO DAILY@0800 12/06/13 Multivitamins,Therapeutic [Multivitamin] 1 tab PO DAILY 12/06/13 Melatonin 10 mg PO QHS 01/15/17 magnesium 250 mg tablet 500 mg PO DAILY tab 11/05/18 metoprolol succinate 25 mg tablet,extended release 24 hr 25 mg PO DAILY #30 tab 11/05/18 digoxin 125 mcg (0.125 mg) tablet 125 mcg PO DAILY #90 tab 03/05/19 cholecalciferol (vitamin D3) 25 mcg (1,000 unit) capsule 2,000 unit PO DAILY cap 04/28/19 predniSONE tablet 40 mg PO DAILY #10 tab 12/23/19 The following prescriptions were given: predniSONE tablet 40 mg PO DAILY #10 tab Transmission Status: Pending to [facility]/pharmacy #[id number] Primary Care Physician: Antonio Garsia DO [Primary Care Provider] - Please follow up with your Primary Care Physician in: 1 week Test Results: Test results from this visit will be discussed in further detail at your follow- up appointment, if applicable. When: neurologist in [place] within one week Proposed Discharge Date: 12/23/19
[2019-12-23 10:55] VITALS: BP 122/52
--- NOTE | 2019-12-23 11:24 | CASEMGMT ---
BARBI KIM Note: Intro role of CM to patient and HERRING form explained re: Observation status for treatment of headache/high blood pressure. Explained hospitalization will be paid per? insurance policy for Outpatient billing?and condition will continue to be evaluated for Inpt necessity. Also let pt know that [facility] sends paper in the billing packet with their phone number if questions arise. Pt verbalizes understanding and does not have further questions. Form signed and placed in chart, copy to pt. YVONNE LANDON BSN CM
--- NOTE | 2019-12-23 12:07 | NURSING ---
pt declined wanting this RN to review dc paperwork and instructions with family. d/c instructions reviewed with patient, voiced understanding.
== END 2019-12-23 10:45 | disposition home or self-care (01) ==
LOC: ED 07:19 → PCU 09:12
PROVIDERS: Admitting Provider Student in an Organized Health Care Education/Training Program; Emergency Provider Emergency Medicine; PCP Family Medicine; Visit Provider Student in an Organized Health Care Education/Training Program
DX: I16.1 Hypertensive emergency (principal); R51 Headache; I48.0 Paroxysmal atrial fibrillation; I10 Essential (primary) hypertension; K21.9 Gastro-esophageal reflux disease without esophagitis; Z79.899 Other long term (current) drug therapy; Z79.82 Long term (current) use of aspirin; G24.9 Dystonia, unspecified; I47.1 Supraventricular tachycardia
CPT/HCPCS: 36415; 70450; 70496; 70498; 80048; 80162; 85025; 96365; 96372; 96375; 96376; 97162; 97166; 99218; 99285; J7030; Q9967; A4216; G0378; J2405

== ENCOUNTER → 2019-12-28 09:04 | Outpatient (CLI) | payer MEDICARE, OTHER, SELFPAY ==
[2019-04-28 13:22] VITALS: BMI 27.6
[2019-12-22 08:37] VITALS: BMI 26.6
[2019-12-28 12:41] LABS: Absolute Lymphocyte Count 2.78 X10^3/uL (0.83-4.51); Absolute Neutrophil Count 6.9 X10^3/uL (2.0-7.7); Basophil# 0.01 X10^3/uL; Basophil% 0.1 % (0-1); Eosinophil# 0.01 X10^3/uL; Eosinophils% 0.1 % (0-5); Hematocrit 42.5 % (37-47); Hemoglobin 13.5 g/dL (12.0-15.0); Lymphocyte # 2.78 X10^3/ul (4.0); Lymphocyte % 26.6 % (19-41); Mean Corp Hgb Conc 31.8 g/dL (32-36); Mean Corpuscular Hgb 27.4 pg (27.0-32.0); Mean Corpuscular Volume 86.2 fL (81-99); Mean Platelet Vol. 10.7 fl (6.2-12.0); Monocyte# 0.74 X10^3/uL; Monocyte% 7.1 % (0-10); NRBC Flagged by Analyzer 0 % (0-5); Neutrophil # 6.87 X10^3/uL (2.7-7.7); Neutrophil % 65.5 % (47-70); Platelet Count 274 K/mm3 (150-450); RBC Distribution Width CV 15.1 % (11.6-14.6); RBC Distribution Width SD 46.7 fl (35.1-43.9); Red Blood Count 4.93 M/mm3 (4.2-5.4); White Blood Count 10.5 K/mm3 (4.4-11.0)
[2019-12-28 12:44] LABS: Vitamin D,25 Hydroxy 110.8 ng/mL
[2019-12-28 12:47] LABS: ALB/GLOB Ratio 1.1 RATIO (0.9-2.4); AST(SGOT) 29 U/L (15-37); Alanine Aminotransfer ALT/SGPT 59 U/L (13-56); Albumin, Serum 3.7 g/dL (3.2-5.0); Alkaline Phosphatase 70 U/L (45-117); Anion Gap 10 (5-15); BUN 40 mg/dL (7-18); BUN/Creat Ratio 35.1 RATIO (10-20); Calcium,Total 9.1 mg/dL (8.5-10.1); Chloride 103 mmol/L (98-107); Cholesterol 187 mg/dL (200); Creatinine, Serum 1.14 mg/dL (0.55-1.02); EST Glomerular Filtration Rate 49 mL/min (>60); Est Glom Filt Rate - Afr Amer 59 mL/min (>60); Globulin 3.5 g/dL (2.2-4.2); Glucose 118 mg/dL (74-106); High Density Lipoprotein 72 mg/dL; Potassium 4.2 mmol/L (3.5-5.1); Protein, Total 7.2 g/dL (6.4-8.2); Sodium Level 138 mmol/L (136-145); Triglycerides 121 mg/dL; Very Low Density Lipoprotein 24 mg/dL (5-40)
[2019-12-29 06:51] LABS: SAR-COV-2 IGG ANTIBODY Negative (Negative)
== END ==
PROVIDERS: PCP Family Medicine; Visit Provider Family Medicine
DX: M81.0 Age-related osteoporosis without current pathological fracture (principal); E78.5 Hyperlipidemia, unspecified; R53.83 Other fatigue; Z51.81 Encounter for therapeutic drug level monitoring; Z20.828 Contact with and (suspected) exposure to other viral communicable diseases
CPT/HCPCS: 80053; 80061; 82306; 85025; 86769; G2023

== ENCOUNTER 2020-05-23 11:14 | Emergency (ER) | payer MEDICARE, OTHER, SELFPAY ==
[2020-02-02 09:12] VITALS: BMI 27.2
[2020-05-23 11:19] VITALS: BP 126/65; PULSE 81; RESP 18; TEMP 36.3; O2SAT 96; BMI 25.8
--- NOTE | 2020-05-23 11:26 | ED.RN ---
LULA FISH, , GRANDDAUGHTER, PLEASE CALL WITH UPDATES
--- NOTE | 2020-05-23 12:34 | ED.DCSUM_ITS ---
History of Present Illness Chief Complaint: Fever Informant: Patient, Family Narrative: Patient is an 84-year-old female with a past medical history of mitral valve prolapse who presents to the emergency department for fever/chills and body ache. She has had some exposures that she was concerned for coronavirus. No known testing positives otherwise. She denies any cough, cold, congestion. No vomiting or nausea. She has had some loose bowel movement but denies diarrhea. No rashes. She had a mild headache. No neck stiffness. She denies any urinary symptoms including dysuria, hematuria or increased frequency. He has been taking Tylenol for symptoms which does help relieve her symptoms temporarily. Past Medical History - Allergies and Home Meds Allergies/Adverse Reactions: Allergies bee venom protein (honey bee) Allergy (Verified 05/23/20 11:16) Anaphylaxis also wasps latex Allergy (Verified 05/23/20 11:16) Rash Penicillins Allergy (Verified 05/23/20 11:16) Rash Primary Care Physician: Antonio Garsia DO [Primary Care Provider] - 3-5 Days if not improving Surgical History: cataract - Bilateral, hysterectomy - With bilateral salpingo- oophorectomy, - - Surgery on the left knee to repair a torn meniscus and fractured tibial plateau Smoking Status: Never smoker - Family History Maternal Family History: Family History (Last Reviewed 01/31/20 @ 15:07 by Alem Gates) Father CHF (congestive heart failure) Family History: Reports: No pertinent history Review of Systems All systems negative except as indicated General: Reports: Chills, Fever. Denies: Sweats Eyes: Denies: Visual changes - bilaterally, Diplopia ENT: Denies: Rhinorrhea, Sore throat Cardiovascular: Denies: Chest pain, Palpitations Respiratory: Denies: Dyspnea, Cough, Dyspnea on exertion Gastrointestinal: Denies: Abdominal pain, Nausea, Vomiting, Diarrhea Genitourinary: Denies: Dysuria, Hematuria, Frequency Musculoskeletal: Denies: Back pain, Extremity Pain Skin: Denies: Rash, Wounds Neurological: Reports: Headache. Denies: Weakness, Numbness Physical Exam Vital Signs/Narrative: Vital Signs Temp Pulse Resp BP Pulse Ox 05/23/20 11:19 97.3 F L 81 18 126/65 H 96 Inital Vital Signs reviewed: Yes General: Well nourished, Well developed, No Acute Distress Head: Normocephalic, Atraumatic Eyes: Perrl, EOMI ENT: Moist mucous membranes, No rhinorrhea Neck: Supple, Nontender Cardiovascular: Regular rate, Regular rhythm, No murmurs Respiratory: No distress, CTA bilaterally, Chest nontender Abdomen: Soft, Nontender, Nondistended, Normal bowel sounds Back: Nontender, Normal Inspection. Negative for: CVA tenderness Extremities: Nontender, No edema. Negative for: Edema, Calf Tenderness Skin: Normal color, No rash Neurological: Alert, Oriented x3, Cranial nerves II-XII grossly intact, Normal Strength, Normal Sensation Psychological: Normal affect, Normal Mood Diagnostic/Tx/Re-eval - Medical Decision Making Patient presents emerge department for concern for coronavirus. She has stable vital signs upon arrival and is afebrile. She has no evidence of infection on exam. I did offer to do some lab work but they only want the coronavirus test at this time. I spoke with the patient's son who was concerned about the virus as well. Will obtain a swab and discharge. She is going to quarantine until this results. Warning signs and symptoms for which to return to the emergency department are reviewed with her including developing any shortness of breath, chest pain or any other infectious symptoms. She understands and is agreeable this plan. Patient discharged home in stable condition. ED Disposition - Plan for ED Patient: Disposition: Home or Assisted Living Diagnosis: Body aches, Fever Instructions: ED FUO Adult Referrals: Antonio Garsia DO [Primary Care Provider] - 3-5 Days if not improving
== END 2020-05-23 13:32 | disposition home or self-care (01) ==
LOC: ED 12:50
PROVIDERS: Emergency Provider Emergency Medicine; PCP Family Medicine
DX: U07.1 COVID-19 (principal); I34.1 Nonrheumatic mitral (valve) prolapse; Z88.0 Allergy status to penicillin
CPT/HCPCS: 87635; 99283; A4216; U0003

== ENCOUNTER 2020-05-24 23:10 | Inpatient (IN) | payer MEDICARE, OTHER, SELFPAY ==
[2020-05-23 11:19] VITALS: BMI 25.8
[2020-05-24 23:12] VITALS: BP 133/77; PULSE 69; RESP 20; TEMP 36.4; O2SAT 95; BMI 26.2
[2020-05-24 23:15] VITALS: BP 133/77; PULSE 69; RESP 20; TEMP 36.4; O2SAT 95
--- NOTE | 2020-05-24 23:30 | EKG12_ITS ---
Test Reason : GEN ILL Blood Pressure : / mmHG Vent. Rate : 065 BPM Atrial Rate : 065 BPM P-R Int : 168 ms QRS Dur : 088 ms QT Int : 392 ms P-R-T Axes : -10 -05 012 degrees QTc Int : 407 ms Sinus rhythm with occasional Premature ventricular complexes Minimal voltage criteria for LVH, may be normal variant Inferior infarct , age undetermined Nonspecific ST and T wave abnormality Abnormal ECG Confirmed by HEATHER LARA, YOANA ([id number]), magazine editor EDENILSON WOO ([id number]) on 05/29/2020 12:34:16 PM Referred By: CHUCK Confirmed By:YOANA ROMERO MD
--- NOTE | 2020-05-24 23:30 | RAD_ITS ---
STUDY: X-RAY CHEST REASON FOR EXAM: Female, 84 years old. C/O COUGH TECHNIQUE: Single AP portable view of the chest. COMPARISON: 08/09/2018. 08/07/2018. FINDINGS: There is a small focus of increased density in the lateral periphery of the right mid lung field, demarcated inferiorly by the horizontal fissure. Findings consistent with a right upper lobe infiltrate, probably small focus of pneumonia. There is right basilar atelectasis and/or small right lower lobe infiltrate. There is no demonstrated pleural abnormality. Normal size heart. Normal mediastinum and ruben. There is atherosclerotic calcification of the aortic arch. There are no demonstrated acute fractures or destructive bone lesions. There is no demonstrated abnormality of the visualized soft tissue structures of the upper abdomen. RAD/Chest 1 View (Portable) IMPRESSION: Small right upper lobe infiltrate. Atelectasis versus small infiltrate in the right lower lobe. Electronically Signed: Garfield Singh MD at 0:23 EDT , Service support ,
--- NOTE | 2020-05-24 23:33 | ED.DCSUM_ITS ---
History of Present Illness Chief Complaint: General Illness Informant: Patient Narrative: Patient is an 84-year-old female who presents to the emergency department for concern for coronavirus. She was seen here yesterday and had outpatient testing. This has not come back yet. She states that her symptoms are getting worse. She has fever and body aches appear to be worsening. She has been taking Tylenol every 4-6 hours which do help temporarily. She has a mild headache. She has developed a slight cough that has been nonproductive. She has had a few episodes of loose bowel movement. She denies any nausea or vomiting. No chest pain. No abdominal pain. She states she has had some urinary frequency but denies any hematuria or dysuria. Again she has had some possible exposures to coronavirus. She denies any leg swelling or calf pain. No rashes. No stiff neck. She has been feeling generally weak. Past Medical History - Allergies and Home Meds Allergies/Adverse Reactions: Allergies bee venom protein (honey bee) Allergy (Verified 05/24/20 23:15) Anaphylaxis also wasps latex Allergy (Verified 05/24/20 23:15) Rash Penicillins Allergy (Verified 05/24/20 23:15) Rash Primary Care Physician: Antonio Garsia DO [Primary Care Provider] - Prior records reviewed: Yes Surgical History: cataract - Bilateral, hysterectomy - With bilateral salpingo- oophorectomy, - - Surgery on the left knee to repair a torn meniscus and fractured tibial plateau Smoking Status: Never smoker - Family History Maternal Family History: Family History (Last Reviewed 01/31/20 @ 15:07 by Alem Gates) Father CHF (congestive heart failure) Family History: Reports: No pertinent history Review of Systems All systems negative except as indicated General: Reports: Chills, Fever. Denies: Sweats Eyes: Denies: Visual changes - bilaterally, Diplopia ENT: Denies: Rhinorrhea, Sore throat Cardiovascular: Denies: Chest pain, Palpitations Respiratory: Reports: Dyspnea, Cough. Denies: Sputum Gastrointestinal: Reports: Diarrhea. Denies: Abdominal pain, Nausea, Vomiting Genitourinary: Reports: Frequency - Patient states that this is chronic. Denies: Dysuria, Hematuria Musculoskeletal: Denies: Back pain, Extremity Pain Skin: Denies: Rash, Wounds Neurological: Reports: Headache. Denies: Weakness, Numbness Physical Exam Vital Signs/Narrative: Vital Signs Temp Pulse Resp BP Pulse Ox 05/24/20 23:15 97.5 F L 69 20 H 133/77 H 95 05/24/20 23:12 97.5 F L 69 20 H 133/77 H 95 Inital Vital Signs reviewed: Yes General: Well nourished, Well developed, No Acute Distress Head: Normocephalic, Atraumatic Eyes: Perrl, EOMI ENT: Moist mucous membranes, No rhinorrhea Neck: Supple, Nontender Cardiovascular: Regular rate, Regular rhythm, No murmurs Respiratory: No distress, CTA bilaterally, Chest nontender Abdomen: Soft, Nontender, Nondistended, Normal bowel sounds Back: Nontender, Normal Inspection Extremities: Nontender, No edema. Negative for: Calf Tenderness Skin: Normal color, No rash Neurological: Alert, Oriented x3, Cranial nerves II-XII grossly intact, Normal Strength, Normal Sensation Psychological: Normal affect, Normal Mood Diagnostic/Tx/Re-eval - EKG Initial EKG Interpretation: - - Rate of 65 bpm and normal sinus rhythm. Normal intervals. Normal axis. No significant ST elevations or depressions. There are T wave inversions in the anterior leads. Prior EKG for comparison was performed on August 092018 which is similar in appearance. - Medical Decision Making Patient presents to the emergency department for shortness of breath, headache, fever/chills, body aches and fatigue. She is concerned she has coronavirus. She has a test currently pending. Upon arrival to the emergency department at my time examination she is satting 92% on room air. The rest of vital signs within normal limits. She did take Tylenol 2 hours prior to coming in. She is currently afebrile. She is in no acute distress. Will check basic lab work, EKG, chest x-ray. Will check urinalysis for evidence of infection as well. Patient's x-ray was significant for right lower lobe infiltrate. She was started on antibiotics for this. Lab work did not reveal any significant acute abnormality. Urine showed the possibility of infection and will be sent for culture. This will be covered with the Rocephin that is given for the pneumonia as well. Patient's coronavirus test did end up coming back positive. Given the fact she is very symptomatic with ambulating and satting around 90% will bring her into the hospital for further evaluation and management. I did discuss this with the on-call hospitalist. Patient informed of all these findings. She understands and is agreeable with this plan. ED Disposition - Plan for ED Patient: Disposition: Acute Care Hospital [facility] Diagnosis: Pneumonia, Dyspnea, UTI (urinary tract infection), COVID-19 Referrals: Antonio Garsia, [Primary Care Provider] -
[2020-05-24 23:48] LABS: Absolute Lymphocyte Count 1.65 X10^3/uL (0.83-4.51); Absolute Neutrophil Count 2.6 X10^3/uL (2.0-7.7); Basophil# 0.01 X10^3/uL; Basophil% 0.2 % (0-1); Hematocrit 40.2 % (37-47); Hemoglobin 12.6 g/dL (12.0-15.0); Lymphocyte # 1.65 X10^3/ul (4.0); Lymphocyte % 35.5 % (19-41); Mean Corp Hgb Conc 31.3 g/dL (32-36); Mean Corpuscular Hgb 26.9 pg (27.0-32.0); Mean Corpuscular Volume 85.9 fL (81-99); Mean Platelet Vol. 9.9 fl (6.2-12.0); Monocyte# 0.38 X10^3/uL; Monocyte% 8.2 % (0-10); NRBC Flagged by Analyzer 0 % (0-5); Neutrophil % 55.9 % (47-70); Platelet Count 172 K/mm3 (150-450); RBC Distribution Width SD 43.7 fl (35.1-43.9); Red Blood Count 4.68 M/mm3 (4.2-5.4); White Blood Count 4.7 K/mm3 (4.4-11.0)
[2020-05-24 23:57] VITALS: O2SAT 92
--- NOTE | 2020-05-24 23:57 | ED.RN ---
ON AMBULATION PT REPORTS DIZZINESS, PT ABLER TO AMBULATE BUT REPORTS WEAKNESS AND INCREASED WORK OF BREATHING AFTER SHORT WALK.
[2020-05-25] VITALS (18 sets, daily range): BP systolic 122–160; BP diastolic 55–78; PULSE 62–82; RESP 16–18; TEMP 36.7–37.3; O2SAT 92–95; BMI 25.9
[2020-05-25 00:02] LABS: Color, Urine Yellow (Yellow); Glucose, Dipstick Normal (Normal); Ketone-Dipstick Negative (Negative); Leukocyte Esterase-Dipstick 500 /ul (Negative); Mucous, Urine 0 SEEN /hpf (<or=2+); Nitrite-Dipstick Negative (Negative); Occult Blood-Urine 10 /ul (Negative); Protein-Dipstick 15 mg/dl (Negative); Specific Gravity, Urine 1.015 (1.002-1.030); Squamous Epithelial Cells - UA 0 SEEN /hpf (5-10); Urine Bilirubin Dipstick Negative (Negative); Urine Clarity Clear (Clear); Urine Urobilinogen Normal (Normal)
[2020-05-25 00:06] LABS: ALB/GLOB Ratio 0.9 RATIO (0.9-2.4); AST(SGOT) 70 U/L (15-37); Alanine Aminotransfer ALT/SGPT 50 U/L (13-56); Albumin, Serum 3.3 g/dL (3.2-5.0); Alkaline Phosphatase 258 U/L (45-117); Anion Gap 8 (5-15); BUN 24 mg/dL (7-18); Calcium,Total 8.5 mg/dL (8.5-10.1); Chloride 101 mmol/L (98-107); Creatinine, Serum 1.09 mg/dL (0.55-1.02); EST Glomerular Filtration Rate 51 mL/min (>60); Est Glom Filt Rate - Afr Amer 62 mL/min (>60); Globulin 3.5 g/dL (2.2-4.2); Glucose 105 mg/dL (74-106); Potassium 3.9 mmol/L (3.5-5.1); Protein, Total 6.8 g/dL (6.4-8.2); Sodium Level 135 mmol/L (136-145)
[2020-05-25 00:09] LABS: Bacteria RARE /hpf (None Seen); Red Blood Cells-Urine 0-5 SEEN /hpf (0-5); White Blood Cells 10-25 SEEN /hpf (0-5)
[2020-05-25 00:10] LABS: Lactic Acid 0.8 mmol/L (0.4-1.9)
[2020-05-25] MEDS: Ceftriaxone 1 GM/50 ML BAG IV ×2 (01:23→22:26)
[2020-05-25 02:35] LABS: Digoxin Level 0.45 ng/mL (0.80-2.00)
--- NOTE | 2020-05-25 02:51 | HP.PCM_ITS ---
Problem List (1) UTI (urinary tract infection) Status: Acute (2) COVID-19 Status: Acute (3) GERD (gastroesophageal reflux disease) Status: Chronic (4) Nonrheumatic mitral (valve) prolapse Status: Chronic (5) Essential hypertension Status: Chronic (6) Paroxysmal atrial fibrillation Status: Chronic History of Present Illness Date of Admission: 05/25/20 Chief Complaint: Body aches, malaise, cough. The patient is a 84 year old F with past medical history as mentioned above presented to the emergency room because of body aches, chills and cough. Her symptoms started 3 days ago with generalized body aches and pains, associated with malaise as well as low-grade fever of up to 100.5 Fahrenheit as well as mild dry cough and without aggravating or relieving factors. She reported associated moderate exertional shortness of breath which has been going on for the last couple of days, aggravated by activity, somewhat relieved by rest. She mentioned that around 2 weeks ago, she was exposed to someone who was diagnosed with COVID-19 later. She complained of frequency but no dysuria or hematuria. In the emergency department, she was afebrile, blood pressure and heart rate are stable, pulse ox was 93% on room air. Routine blood work was unremarkable. LFT revealed slight elevated alkaline phosphatase, bilirubin and liver transaminases are normal. Lactic acid was normal. EKG revealed normal sinus rhythm with PVCs, no acute changes. Troponin was negative. Urinalysis revealed clear urine, there was 500 leukocyte esterase, 10-25 WBCs and rare bacteria seen. Chest x-ray revealed possible early right base infiltrate. COVID-19 PCR came back positive. She is being admitted for acute COVID-19 pneumonia and acute cystitis. Past Medical History Past Medical History (Chronic Problems): Chronic Problems (Last Updated 05/25/20 @ 02:[address] Ellie Bagley MD) SVT (supraventricular tachycardia) (Chronic) GERD (gastroesophageal reflux disease) (Chronic) Nonrheumatic mitral (valve) prolapse (Chronic) Essential hypertension (Chronic) Ventricular ectopy (Chronic) Paroxysmal atrial fibrillation (Chronic) Medical History: Medical History (Last Updated 05/25/20 @ 02:[address] 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 Allergies bee venom protein (honey bee) Allergy (Verified 05/24/20 23:15) Anaphylaxis also wasps latex Allergy (Verified 05/24/20 23:15) Rash Penicillins Allergy (Verified 05/24/20 23:15) Rash Home Medications: Ambulatory Orders Medication Instructions Recorded Aspirin [Aspirin, Baby] 81 mg PO DAILY@0800 12/06/13 Multivitamins,Therapeutic 1 tab PO DAILY 12/06/13 [Multivitamin] Melatonin 10 mg PO QHS 01/15/17 digoxin 125 mcg (0.125 mg) tablet 125 mcg PO DAILY #90 tab 03/05/19 metoprolol succinate 25 mg 25 mg PO DAILY #30 tab 01/20/20 tablet,extended release 24 hr cholecalciferol (vitamin D3) 25 4,000 unit PO DAILY cap 01/31/20 mcg (1,000 unit) capsule lisinopril 10 mg tablet 10 mg PO DAILY 01/31/20 magnesium 250 mg tablet 500 mg PO DAILY tab 01/31/20 mecobalamin (vitamin B12) 1,000 1,000 mcg PO DAILY 01/31/20 mcg chewable tablet pantoprazole 40 mg tablet,delayed 40 mg PO DAILY 01/31/20 release Surgical History: Surgical History (Last Reviewed 05/25/20 @ 02:[address] Ellie Bagley MD) History of knee surgery Z98.890 History of lumpectomy of left breast Z98.890 History of tonsillectomy and adenoidectomy Z98.890 History of total hysterectomy Z90.710 Surgical History: cataract - Bilateral, hysterectomy - With bilateral salpingo- oophorectomy, - - Surgery on the left knee to repair a torn meniscus and fractured tibial plateau Psychiatric History: No pertinent psych hx [employer]ING [employer]MENT [employer] History: - - She had a remote ectopic and ovarian cysts and subsequently underwent a total hysterectomy Lives: Spouse/ Significant Other Smoking Status: Never smoker Alcohol: None Drugs: None - *Family History Maternal Family History: Family History (Last Reviewed 05/25/20 @ 02:[address] Ellie Bagley MD) Father CHF (congestive heart failure) History Items: No pertinent history Review of Systems Constitutional: Reports: Chills, Fever, Malaise, Weakness. Denies: Anorexia Eyes: Denies: Blurred vision, Double vision, Drainage, Redness HEENT: Reports: Head Aches. Denies: Difficulty Hearing, Ear Pain, Eye Pain, Nasal Congestion, Sore Throat Cardiovascular: Denies: Chest Pain, Chest Pressure, Edema, Heaviness, Light Headedness, Palpitations, Syncope Respiratory: Reports: Cough, Shortness of breath upon exertion. Denies: Pleuritic Pain, Sputum production, Wheezing Gastrointestinal: Denies: Abdominal Pain, Constipation, Diarrhea, Nausea, Vomiting Genitourinary: Denies: Dysuria, Frequency, Hematuria Musculoskeletal: Denies: Arm Pain, Back Pain, Foot Pain Skin: Denies: Dryness, Rash Neurological: Denies: Balance problems, Blurred vision, Double vision, Change in Speech, Headaches, Numbness Psychiatric: Denies: Anxiety, Depression Endocrine: Denies: Change in Body Habitus, Polydipsia, Polyuria VTE Information - Inpt Only VTE Present on Admission: No VTE Mechan Device Prophylaxis: None VTE Pharm Prophylaxis ordered?: Yes Patient Problems: Active and Suspected Problems (Last Updated 05/25/20 @ 02:[address] Ellie Bagley MD) UTI (urinary tract infection) (Acute) COVID-19 (Acute) - Physical Exam Vitals/I&O's: Vital Signs Temp Pulse Resp BP Pulse Ox 98.4 F 62 16 147/55 H 92 05/25/20 01:24 05/25/20 01:24 05/25/20 01:24 05/25/20 01:24 05/25/20 01:24 Oxygen Delivery Method Room Air Weight: 167 lb 8.821 oz Body Mass Index (BMI) 26.2 Finger Stick Blood Glucose 121 Intake and Output for Last 24 Hours 05/23/20 05/24/20 05/25/20 23:59 23:59 23:59 Intake Total 50 / 50 Balance 50 / 50 General: Alert, Oriented x3, Cooperative, No apparent distress HEENT: Atraumatic, PERRLA, EOMI, Normocephalic Oral: Moist Mucosa, No Gingival or Mucosal Lesions/ Ulcerations Neck: Supple, No JVD, Negative Carotid Bruits, Trachea Midline, Thyroid Normal Size and Texture Lungs: Clear to auscultation, No rhonchi, No wheeze, No rales, - - Decreased breath sounds at the base, otherwise clear. Cardiovascular: Regular rate, Regular Rhythm, Normal S1, Normal S2, PMI Normal Abdomen: Bowel Sounds Present, Soft, Non Tender, Non-Distended, No Hepato- splenomegaly Extremities: No clubbing, No cyanosis, No edema Skin: No rashes, No breakdown Lymphatic: No Cervical, Supraclavicular, or Inguinal Adenopathy Neurological: Cranial nerves II-XII grossly intact, Motor Exam 5/5 strength throughout Psych/Mental Status: Normal Affect, Appropriate, Alert and oriented to time, place, person, mood and affect Laboratory Results 05/24/20 23:40: WBC 4.7, RBC 4.68, Hgb 12.6, Hct 40.2, MCV 85.9, MCH 26.9 L, MCHC 31.3 L, RDW Std Deviation 43.7, RDW Coeff of Casi 14.0, Plt Count 172, MPV 9.9, Immature Gran % (Auto) 0.200, Neut % (Auto) 55.9, Lymph % (Auto) 35.5, [place] % (Auto) 8.2, Eos % (Auto) 0.0, Baso % (Auto) 0.2, Absolute Neuts (auto) 2.6, Absolute Lymphs (auto) 1.65, Nucleated RBC % 0 05/24/20 23:40: Sodium 135 L, Potassium 3.9, Chloride 101, Carbon Dioxide 26.0, Anion Gap 8, BUN 24 H, Creatinine 1.09 H, Estim Creat Clear Calc 38.70, Est GFR (MDRD) Af Amer 62, Est GFR (MDRD) Non-Af 51 L, BUN/Creatinine Ratio 22.0 H, Glucose 105, Calcium 8.5, Total Bilirubin 0.30, AST 70 H, ALT 50, Alkaline Phosphatase 258 H, Troponin I < 0.015, Total Protein 6.8, Albumin 3.3, Globulin 3.5, Albumin/Globulin Ratio 0.9 05/24/20 23:40: Lactic Acid 0.8 05/24/20 23:40: Digoxin 0.45 L 05/24/20 23:57: Urine Color Yellow, Urine Clarity Clear, Urine pH 5.0, Ur Specific [place] 1.015, Urine Protein 15 H, Urine Glucose (UA) Normal, Urine Ketones Negative, Urine Occult Blood 10 H, Urine Nitrite Negative, Urine Bilirubin Negative, Urine Urobilinogen Normal, Ur Leukocyte Esterase 500 H, Urine RBC 0-5 SEEN, Urine WBC 10-25 SEEN, Ur Squamous Epith Cells 0 SEEN, Urine Bacteria RARE, Urine Mucus 0 SEEN 05/25/20 00:02: COVID-19 (TAB) Detected Clinical Impression(s) from Imaging Studies Chest X-Ray 05/24/20 23:30 IMPRESSION: Small right upper lobe infiltrate. Atelectasis versus small infiltrate in the right lower lobe. Electronically Signed: Garfield Singh MD at 0:23 EDT , Service support , Assessment/Plan All Active Problems (Last Updated 05/25/20 @ 02:[address] Ellie Bagley MD) UTI (urinary tract infection) (Acute) COVID-19 (Acute) This is an 85 years old female patient presented to the emergency room because of generalized body aches and pains, low-grade fever, cough and malaise and she was found to have nearly right lung base infiltrate, tested positive for COVID- 19 she is being admitted for acute COVID-19 pneumonia as well as probable acute cystitis. #1 acute COVID-19 pneumonia: Chest x-ray reviewed, COVID-19 PCR was positive. Currently, patient is on room air, pulse ox is around 95%. Lactic acid was normal. Plan: Admit to [facility] floor, isolation precautions, start IV Decadron, empiric IV Rocephin and Zithromax, check BNP, CPK, D-dimer, fibrinogen, LDH, prolactin level, infectious disease consult, pulmonology consult, albuterol inhaler as needed, repeat CBC and BMP tomorrow morning, PT OT evaluation and treatment. #2 probable acute cystitis: Urinalysis reviewed. Blood and urine culture sent. Plan to start IV Rocephin as above. #3 paroxysmal atrial fibrillation: Rate is controlled, blood pressure stable. Continue digoxin and metoprolol for rate control. Patient is not on anticoagulation. #4 hypertension: Blood pressure stable, continue lisinopril and metoprolol. #5 GERD: Continue PPI. #6 CODE STATUS: Full code, discussed with the patient in the presence of her . #7 DVT prophylaxis: Subcu Lovenox. This note was generated with [employer] dictation software. It may contain incorrect words, spelling, and punctuation that were not noted in checking the note before signing. Inpatient E&M: 30720 Init Hosp L2
[2020-05-25 04:31] LABS: International Normalized Ratio 0.9; Prothrombin Time (Protime)PT. 11.6 SECONDS (11.7-14.9)
[2020-05-25 04:40] LABS: CPK Total, Creatine Kinase 92 U/L (26-192); LDH 265 U/L (84-246)
[2020-05-25] MEDS: 0.9% Normal Saline 1,000 ML 100 ML IV (04:45)
[2020-05-25] MEDS: dexAMETHasone 10 MG/ML Vial 6 MG IV ×2 (04:45→08:53)
[2020-05-25] MEDS: 0.9% Saline Lock 10 ML Syringe IV (04:45)
[2020-05-25 04:46] LABS: Fibrinogen 558 mg/dl (203-444)
[2020-05-25 04:53] LABS: D-Dimer Quantitative (DVT/PE) 1.63 FEU/ug/m (0.27-0.49)
--- NOTE | 2020-05-25 05:19 | CT_ITS ---
STUDY: CTA CHEST REASON FOR EXAM: Female, 84 years old patient with fever and elevated D Dimer and COVID 19 infection. RADIATION DOSAGE (If Supplied By Facility): CTDIvol = ( 9.74 ) mGy, DLP = ( 304.28 ) mGycm TECHNIQUE: The examination was performed with the intravenous administration of 100 mL of Isovue-370. Post-processing of the angiographic images was performed, with multiplanar reformation and 3D reconstruction. Individualized dose optimization techniques were used for this CT. COMPARISON: CT of the chest dated 12/06/2013. FINDINGS: Normal enhancement of the main pulmonary artery and right and left pulmonary arteries. Normal enhancement of the bilateral peripheral pulmonary arteries. There is no demonstrated pulmonary embolism. There is atherosclerotic calcification of the aortic arch with tortuosity. Maximum transverse dimension of the ascending thoracic aorta is 3.7 cm. There is no demonstrated aortic dissection. There is cardiomegaly. There are calcifications of the coronary arteries. Normal mediastinum. Normal hilar regions. Normal visualized trachea and bronchi. The lungs are well expanded. There is a right lower lobe heterogeneous air space disease to include groundglass attenuation. There is also patchy right middle lobe, lingula and right upper lobe airspace disease. Normal pleura. Normal chest wall structures. There are degenerative changes of thoracic spine. The bones appear osteopenic. Normal visualized upper abdomen. CT/CTA Chest W/WO Contrast IMPRESSION: 1. No CTA demonstrated pulmonary embolism or arterial dissection. 2. Multifocal airspace disease consistent with multifocal pneumonia. Electronically Signed: Aniyah Hess MD at 7:03 EDT , Service support ,
[2020-05-25 08:02] LABS: BNP,B-Type NATRIURETIC PEPTIDE 167.3 pg/mL (0-100)
--- NOTE | 2020-05-25 08:09 | PN_ITS ---
Patient Problems: Active and Suspected Problems (Last Updated 05/25/20 @ 02:[address] Ellie Bagley MD) Pneumonia (Acute) Dyspnea (Acute) UTI (urinary tract infection) (Acute) COVID-19 (Acute) Reason for Visit: Follow-up for Covid?19 pneumonia Objective: Admitted with 2 days symptoms of fever, at home T 100.4 Fahrenheit along with mild cough, chest congestion and shortness of breath. Denies history of smoking, COPD/emphysema. Denies chronic heart disease including coronary artery disease. No fever. Vital signs are stable. No tachypnea or hypoxia. Physical exam General: Alert, Oriented x3, Cooperative HEENT: Atraumatic, PERRLA, EOMI, Normocephalic Oral: No Gingival or Mucosal Lesions/ Ulcerations Neck: Supple, No JVD, Negative Carotid Bruits Lungs: Air entry diminished in bilateral lung bases. Mild bilateral coarse crepitation Cardiovascular: Regular rate, Regular Rhythm, Normal S1, Normal S2, No murmurs Abdomen: Bowel Sounds Present, Soft, Non Tender, Non-Distended : No renal angle tenderness. No suprapubic tenderness. Extremities: No edema, Capillary Refill Less than 3 Seconds Skin: No rashes, No breakdown Musculoskeletal: No Tenderness to Palpation of Joints or Extremities Neurological: Cranial nerves II-XII grossly intact, Deep Tendon Reflexes 2+/4 and Symmetrical, Neuro grossly intact Psych/Mental Status: Normal Affect, Appropriate. Vitals/I&O's: Vital Signs Temp Pulse Resp BP Pulse Ox 97.4 F L 68 18 160/78 H 93 05/25/20 03:22 05/25/20 08:00 05/25/20 03:22 05/25/20 03:22 05/25/20 03:22 Oxygen Delivery Method Room Air Weight: 165 lb 9.074 oz Body Mass Index (BMI) 25.9 Finger Stick Blood Glucose 121 Intake and Output for Last 24 Hours 05/23/20 05/24/20 05/25/20 23:59 23:59 23:59 Intake Total 491.67 / 491.67 Balance 491.67 / 491.67 Laboratory Results 05/24/20 23:40: WBC 4.7, RBC 4.68, Hgb 12.6, Hct 40.2, MCV 85.9, MCH 26.9 L, MCHC 31.3 L, RDW Std Deviation 43.7, RDW Coeff of Casi 14.0, Plt Count 172, MPV 9.9, Immature Gran % (Auto) 0.200, Neut % (Auto) 55.9, Lymph % (Auto) 35.5, Rains % (Auto) 8.2, Eos % (Auto) 0.0, Baso % (Auto) 0.2, Absolute Neuts (auto) 2.6, Absolute Lymphs (auto) 1.65, Nucleated RBC % 0 05/24/20 23:40: Sodium 135 L, Potassium 3.9, Chloride 101, Carbon Dioxide 26.0, Anion Gap 8, BUN 24 H, Creatinine 1.09 H, Estim Creat Clear Calc 38.70, Est GFR (MDRD) Af Amer 62, Est GFR (MDRD) Non-Af 51 L, BUN/Creatinine Ratio 22.0 H, Glucose 105, Calcium 8.5, Total Bilirubin 0.30, AST 70 H, ALT 50, Alkaline Phosphatase 258 H, Troponin I < 0.015, Total Protein 6.8, Albumin 3.3, Globulin 3.5, Albumin/Globulin Ratio 0.9 05/24/20 23:40: Lactic Acid 0.8 05/24/20 23:40: Digoxin 0.45 L 05/24/20 23:40: PT 11.6 L, INR 0.9, Fibrinogen 558 H, D-Dimer Quant (PE/DVT) 1.63 H* 05/24/20 23:40: Lactate Dehydrogenase 265 H, Total Creatine Kinase 92 05/24/20 23:40: B-Natriuretic Peptide 167.3 H 05/24/20 23:40: Procalcitonin Pending 05/24/20 23:57: Urine Color Yellow, Urine Clarity Clear, Urine pH 5.0, Ur Specific [place] 1.015, Urine Protein 15 H, Urine Glucose (UA) Normal, Urine Ketones Negative, Urine Occult Blood 10 H, Urine Nitrite Negative, Urine Bilirubin Negative, Urine Urobilinogen Normal, Ur Leukocyte Esterase 500 H, Urine RBC 0-5 SEEN, Urine WBC 10-25 SEEN, Ur Squamous Epith Cells 0 SEEN, Urine Bacteria RARE, Urine Mucus 0 SEEN 05/25/20 00:02: COVID-19 (TAB) Detected Current Medications Acetaminophen (Acetaminophen 325 Mg Tablet) 650 mg PO Q6H PRN PRN PRN Reason: Pain Score 1-10/Temp > 100.7 F Acetylcysteine (Acetylcysteine (Mucomyst Oral) 20% Soln) 1,200 mg PO BID [facility] Albuterol Sulfate (Albuterol 2.5 Mg/3 Ml Vial.Neb.) 2.5 mg INHALATION Q4H PRN PRN PRN Reason: Shortness of breath, wheezing Aspirin (Aspirin 81 Mg Tab.Chew) 81 mg PO DAILY@0800 [facility] Dexamethasone Sodium Phosphate (Dexamethasone 10 Mg/Ml Vial) 6 mg IV DAILY [facility] Last Admin: 05/25/20 04:45 Dose: 6 mg Documented by: Digoxin (Digoxin 125 Mcg Tablet) 125 mcg PO DAILY [facility] Enoxaparin Sodium (Enoxaparin 30 Mg/0.3 Ml Syringe) 30 mg SC DAILY [facility] Sodium Chloride () 250 mls @ 15 mls/hr IV .[id number] PRN PRN Reason: Saline Flush Sodium Chloride () 250 mls @ 15 mls/hr IV .[id number] PRN PRN Reason: Additional IVPB Infusion Sodium Chloride () 1,000 mls @ 100 mls/hr IV .Q10H TASIA Stop: 05/25/20 08:44 Last Infusion: 05/25/20 06:37 Dose: 0 mls/hr Documented by: Ceftriaxone Sodium (Rocephin) 1 gm in 50 mls @ 100 mls/hr IV Q24H [facility] Azithromycin 500 mg/ Dextrose 255 mls @ 250 mls/hr IV Q24H [facility] Lisinopril (Lisinopril 10 Mg Tablet) 10 mg PO DAILY [facility] Magnesium Chloride (Magnesium Chloride 64 Mg Delay Rel.Tablet) 128 mg PO DAILY [facility] Melatonin (Melatonin 10 Mg Tablet) 10 mg PO QHS [facility] Metoprolol Succinate (Metoprolol(Xl)Succ 25 Mg Tablet) 25 mg PO DAILY [facility] Nutritional Formula (Lactose Free) (Ensure Enlive 120 Ml Liquid) 120 ml PO 4X/DAY [facility] Pantoprazole Sodium (Pantoprazole Sodium 40 Mg Tablet) 40 mg PO DAILY [facility] Senna/Docusate Sodium (Senna/Docusate Sodium 1 Tablet) 2 tablet PO BID PRN PRN PRN Reason: Constipation Sodium Chloride (0.9% Saline Lock 10 Ml Syringe) 10 - 40 ml IV UD PRN PRN Reason: SALINE FLUSH Last Admin: 05/25/20 04:45 Dose: 10 ml Documented by: STROKE Vital Signs/Narrative: Vital Signs Pulse 05/25/20 08:00 68 05/25/20 04:35 66 Medical Necessity - Tobacco Use Smoking Status: Never smoker Assessment/Plan All Active Problems (Last Updated 05/25/20 @ 02:[address] Ellie Bagley MD) Pneumonia (Acute) Dyspnea (Acute) UTI (urinary tract infection) (Acute) COVID-19 (Acute) This is an 85 years old female patient presented to the emergency room because of generalized body aches and pains, low-grade fever, cough and malaise and tested positive for COVID-19 is being admitted for acute COVID-19 pneumonia as well as probable acute cystitis. #1 acute COVID-19 pneumonia: Chest x-ray shows right upper lobe infiltrate and atelectasis infiltrate in right lung base. Chest CTA was done and individually reviewed. No evidence of PE or dissection. Multifocal bilateral peripheral and basilar consolidation infiltrates consistent with COVID-19 pneumonia. Currently patient is on room air with no tachypnea. Inflammatory markers followed. Procalcitonin normal. BNP 167, LDH 265, liver chemistry AST 70, alkaline phosphatase 258. LDH 265. CK normal. Troponin normal. ID consult requested. Discussed with senior compliance analyst, as patient is on room air and respiratory status stable, pulmonary consult not needed. #2 probable acute cystitis: Patient had increased frequency for last few days prior to admission. Urinalysis reviewed and dysuria 10-25 cells. LE 500. Urine culture and blood cultures are pending. Patient had history of UTI, about 1 time or less than per year last few years. Blood and urine culture sent. Plan to start IV Rocephin as above. #3 paroxysmal atrial fibrillation: Rate is controlled, blood pressure stable. Continue digoxin and metoprolol for rate control. Patient is not on anticoagulation. #4 hypertension: Blood pressure stable, continue lisinopril and metoprolol. #5 GERD: Continue PPI. #6 CODE STATUS: Full code, discussed with the patient in the presence of her . #7 DVT prophylaxis: Subcu Lovenox. Laboratory Results 05/24/20 23:40: WBC 4.7, RBC 4.68, Hgb 12.6, Hct 40.2, MCV 85.9, MCH 26.9 L, MCHC 31.3 L, RDW Std Deviation 43.7, RDW Coeff of Casi 14.0, Plt Count 172, MPV 9.9, Immature Gran % (Auto) 0.200, Neut % (Auto) 55.9, Lymph % (Auto) 35.5, Rains % (Auto) 8.2, Eos % (Auto) 0.0, Baso % (Auto) 0.2, Absolute Neuts (auto) 2.6, Absolute Lymphs (auto) 1.65, Nucleated RBC % 0 05/24/20 23:40: Sodium 135 L, Potassium 3.9, Chloride 101, Carbon Dioxide 26.0, Anion Gap 8, BUN 24 H, Creatinine 1.09 H, Estim Creat Clear Calc 38.70, Est GFR (MDRD) Af Amer 62, Est GFR (MDRD) Non-Af 51 L, BUN/Creatinine Ratio 22.0 H, Glucose 105, Calcium 8.5, Total Bilirubin 0.30, AST 70 H, ALT 50, Alkaline Phosphatase 258 H, Troponin I < 0.015, Total Protein 6.8, Albumin 3.3, Globulin 3.5, Albumin/Globulin Ratio 0.9 05/24/20 23:40: Lactic Acid 0.8 05/24/20 23:40: Digoxin 0.45 L 05/24/20 23:40: PT 11.6 L, INR 0.9, Fibrinogen 558 H, D-Dimer Quant (PE/DVT) 1.63 H* 05/24/20 23:40: Lactate Dehydrogenase 265 H, Total Creatine Kinase 92 05/24/20 23:40: B-Natriuretic Peptide 167.3 H 05/24/20 23:40: Procalcitonin 0.06 05/24/20 23:57: Urine Color Yellow, Urine Clarity Clear, Urine pH 5.0, Ur Specific [place] 1.015, Urine Protein 15 H, Urine Glucose (UA) Normal, Urine Ketones Negative, Urine Occult Blood 10 H, Urine Nitrite Negative, Urine Bilirubin Negative, Urine Urobilinogen Normal, Ur Leukocyte Esterase 500 H, Urine RBC 0-5 SEEN, Urine WBC 10-25 SEEN, Ur Squamous Epith Cells 0 SEEN, Urine Bacteria RARE, Urine Mucus 0 SEEN 05/25/20 00:02: COVID-19 (TAB) Detected Clinical Impression(s) from Imaging Studies Chest X-Ray 05/24/20 23:30 IMPRESSION: Small right upper lobe infiltrate. Atelectasis versus small infiltrate in the right lower lobe. Chest CTA 05/25/20 05:19 IMPRESSION: 1. No CTA demonstrated pulmonary embolism or arterial dissection. 2. Multifocal airspace disease consistent with multifocal pneumonia. Electronically Signed: Aniyah Hess MD at 7:03 EDT , Service support , Inpatient E&M: [id number] Subs Hosp L2
[2020-05-25 08:15] LABS: Procalcitonin 0.06 ng/mL (0.00-0.09)
[2020-05-25] MEDS: Aspirin 81 MG TAB.CHEW PO (08:48)
[2020-05-25] MEDS: Magnesium Chloride 64 MG Delay Rel.Tablet 128 MG PO (08:49)
[2020-05-25] MEDS: Digoxin 125 MCG Tablet PO (08:50)
[2020-05-25] MEDS: Lisinopril 10 MG Tablet PO (08:50)
[2020-05-25] MEDS: Enoxaparin 30 MG/0.3 ML Syringe SC ×2 (08:52→22:26)
[2020-05-25] MEDS: Metoprolol(XL)Succ 25 MG Tablet PO (08:52)
[2020-05-25] MEDS: Pantoprazole Sodium 40 MG Tablet PO (08:52)
--- NOTE | 2020-05-25 10:32 | CASEMGMT ---
RN CM Assessment Note Introduced role of CM to patient via phone to room. Demographics, PCP verified. Patient is awake, alert and able to participate in assessment. patient states she is independent, no DME use and plans to return home. She lives with her who is presumed positive as he has mild symptoms at this time. He is quarantining and family is available to bring food, medications, etc to him. Per , her daughter and granddaughter live nearby and will be able to help bring things to home when she is discharged. Presentation: shortness of breath, fever Diagnosis: COVID 19 PCP: Dr. Antonio Garsia Insurance: [facility] [facility] Prescription Benefit: yes LNOK: and daughter Living Arrangements: Lives in one story home with . Able to return on discharge and is aware of need to quarantine. Tranportation: family DME: none Patient DC Goals: Home on discharge DC Plan: Home. Pt is currently on RA but will watch for any oxygen needs if they arise. Patient aware to notify CM for any concerns re: sharon. Ruba PATRICK RN ACM
[2020-05-25] MEDS: Acetylcysteine (Mucomyst Oral) 20% SOLN 1200 MG PO ×2 (12:08→22:26)
--- NOTE | 2020-05-25 13:29 | NT.THERAPY_ITS ---
Nutrition Therapy Report - History Nutrition Services has been consulted to:: Manage nutrient details of diet order Current diet / nutrition support order:: cardiac/heart healthy; ensure enlive 120mL 4x/day - Anthropometric Measurements Height:: 5 ft 7 in Weight:: 75.1 kg Body Mass Index (BMI):: 25.9 - Relevant Labs Relevant Labs:: MCH 26.9 pg (27.0-32.0) L 05/24/20 23:40 MCHC 31.3 g/dL (32-36) L 05/24/20 23:40 PT 11.6 SECONDS (11.7-14.9) L 05/24/20 23:40 Fibrinogen 558 mg/dl (203-444) H 05/24/20 23:40 D-Dimer Quant (PE/DVT) 1.63 FEU/ug/m (0.27-0.49) H* 05/24/20 23:40 Sodium 135 mmol/L (136-145) L 05/24/20 23:40 BUN 24 mg/dL (7-18) H 05/24/20 23:40 Creatinine 1.09 mg/dL (0.55-1.02) H 05/24/20 23:40 Est GFR (MDRD) Non-Af 51 mL/min (>60) L 05/24/20 23:40 BUN/Creatinine Ratio 22.0 RATIO (10-20) H 05/24/20 23:40 AST 70 U/L (15-37) H 05/24/20 23:40 Alkaline Phosphatase 258 U/L (45-117) H 05/24/20 23:40 Lactate Dehydrogenase 265 U/L (84-246) H 05/24/20 23:40 B-Natriuretic Peptide 167.3 pg/mL (0-100) H 05/24/20 23:40 - Assessment Food / Nutrition-Related History:: Pt currently in isolation d/t COVID-19. Spoke w/ pt via room phone. No special diet at home, normally drinks 1 bottle of Ensure per day. States she had poor appetite/intake for ~5 days [employer] d/t acute illness. UBW 168#, CBW 165.6#- 2.4#/1.4% wt loss x ~2 weeks, significant for malnutrition per pt report. Currently eating lunch at time of assessment call, states appetite has improved and describes fair intake. - Nutrition Diagnosis Problem / Etiology / Signs & Symptoms (PES):: Pt w/ moderate, acute malnutrition related to inadequate energy intake during acute illness as evidenced by 2.4#/1.4% wt loss x <2 weeks, estimated PO intake meeting less than 50% of pt's estimated needs for 5 days [employer]. Evidence of Malnutrition Exists:: Yes Moderate PCM:: Acute Illness - Nutrition Intervention Nutrition Prescription:: [id number] calories/day, 65-75 g protein/day - Food / Nutrient Delivery Interventions Summary of nutrition intervention:: Discussed ONS as ordered w/ medpass- pt agreeable to continuing. No other concerns for RDN at this time. Nutrition support ordered as / adjusted to:: regular diet d/t signs/symptoms of acute moderate malnutrition - MNT Monitoring Further MNT monitoring and evaluation required?: Yes MNT Follow-up in:: 3-5 days
--- NOTE | 2020-05-25 14:55 | CON.PCM_ITS ---
Problem List (1) COVID-19 Status: Acute Reason for Consult: covid Consulted by: Dr. Oliva History of Present Illness: The patient is a 84 year old F with mitral valve prolapse, came to ED last night with 2 days of cough, dyspnea, fever, aches, headache, mild diarrhea, and change in taste/smell. Member of [employer] group turned positive for covid after their meeting about 10 days ago. at home is feeling fine, is in quarantine. She came to ED 05/23, sent home, came back. Now admitted, on dex. Full ROS performed and neg except as noted above. - Medical History Past Medical History (Chronic Problems): Chronic Problems (Last Updated 05/25/20 @ 02:[address] Ellie Bagley MD) SVT (supraventricular tachycardia) (Chronic) GERD (gastroesophageal reflux disease) (Chronic) Nonrheumatic mitral (valve) prolapse (Chronic) Essential hypertension (Chronic) Ventricular ectopy (Chronic) Paroxysmal atrial fibrillation (Chronic) Allergies/Adverse Reactions: Allergies bee venom protein (honey bee) Allergy (Verified 05/24/20 23:15) Anaphylaxis also wasps latex Allergy (Verified 05/24/20 23:15) Rash Penicillins Allergy (Verified 05/24/20 23:15) Rash Home Medications: Ambulatory Orders Medication Instructions Recorded Aspirin [Aspirin, Baby] 81 mg PO DAILY@0800 12/06/13 Multivitamins,Therapeutic 1 tab PO DAILY 12/06/13 [Multivitamin] Melatonin 10 mg PO QHS 01/15/17 digoxin 125 mcg (0.125 mg) tablet 125 mcg PO DAILY #90 tab 03/05/19 metoprolol succinate 25 mg 25 mg PO DAILY #30 tab 01/20/20 tablet,extended release 24 hr cholecalciferol (vitamin D3) 25 4,000 unit PO DAILY cap 01/31/20 mcg (1,000 unit) capsule lisinopril 10 mg tablet 10 mg PO DAILY 01/31/20 magnesium 250 mg tablet 500 mg PO DAILY tab 01/31/20 mecobalamin (vitamin B12) 1,000 1,000 mcg PO DAILY 01/31/20 mcg chewable tablet pantoprazole 40 mg tablet,delayed 40 mg PO DAILY 01/31/20 release - Social History Tobacco Use: non-smoker Vital Signs Temp Pulse Resp BP Pulse Ox 99.1 F 78 18 148/75 H 92 10/22/20 08:44 05/25/20 12:34 05/25/20 08:44 05/25/20 08:52 05/25/20 13:52 Oxygen Delivery Method Room Air Weight: 75.1 kg Body Mass Index (BMI) 25.9 Finger Stick Blood Glucose 121 Laboratory Tests Past 24 Hrs 05/24/20 05/24/20 05/24/20 23:40 23:40 23:40 WBC 4.7 RBC 4.68 Hgb 12.6 Hct 40.2 MCV 85.9 MCH 26.9 L MCHC 31.3 L RDW Std Deviation 43.7 RDW Coeff of Casi 14.0 Plt Count 172 MPV 9.9 Immature Gran % (Auto) 0.200 Neut % (Auto) 55.9 Lymph % (Auto) 35.5 [place] % (Auto) 8.2 Eos % (Auto) 0.0 Baso % (Auto) 0.2 Absolute Neuts (auto) 2.6 Absolute Lymphs (auto) 1.65 Nucleated RBC % 0 PT INR Fibrinogen D-Dimer Quant (PE/DVT) Sodium 135 L Potassium 3.9 Chloride 101 Carbon Dioxide 26.0 Anion Gap 8 BUN 24 H Creatinine 1.09 H Estim Creat Clear Calc 38.70 Est GFR (MDRD) Af Amer 62 Est GFR (MDRD) Non-Af 51 L BUN/Creatinine Ratio 22.0 H Glucose 105 Lactic Acid 0.8 Calcium 8.5 Total Bilirubin 0.30 AST 70 H ALT 50 Alkaline Phosphatase 258 H Lactate Dehydrogenase Total Creatine Kinase Troponin I < 0.015 B-Natriuretic Peptide Total Protein 6.8 Albumin 3.3 Globulin 3.5 Albumin/Globulin Ratio 0.9 Procalcitonin Urine Color Urine Clarity Urine pH Ur Specific [place] Urine Protein Urine Glucose (UA) Urine Ketones Urine Occult Blood Urine Nitrite Urine Bilirubin Urine Urobilinogen Ur Leukocyte Esterase Urine RBC Urine WBC Ur Squamous Epith Cells Urine Bacteria Urine Mucus Digoxin COVID-19 (TAB) Blood Type 05/24/20 05/24/20 05/24/20 23:40 23:40 23:40 WBC RBC Hgb Hct MCV MCH MCHC RDW Std Deviation RDW Coeff of Casi Plt Count MPV Immature Gran % (Auto) Neut % (Auto) Lymph % (Auto) [place] % (Auto) Eos % (Auto) Baso % (Auto) Absolute Neuts (auto) Absolute Lymphs (auto) Nucleated RBC % PT 11.6 L INR 0.9 Fibrinogen 558 H D-Dimer Quant (PE/DVT) 1.63 H* Sodium Potassium Chloride Carbon Dioxide Anion Gap BUN Creatinine Estim Creat Clear Calc Est GFR (MDRD) Af Amer Est GFR (MDRD) Non-Af BUN/Creatinine Ratio Glucose Lactic Acid Calcium Total Bilirubin AST ALT Alkaline Phosphatase Lactate Dehydrogenase 265 H Total Creatine Kinase 92 Troponin I B-Natriuretic Peptide Total Protein Albumin Globulin Albumin/Globulin Ratio Procalcitonin Urine Color Urine Clarity Urine pH Ur Specific [place] Urine Protein Urine Glucose (UA) Urine Ketones Urine Occult Blood Urine Nitrite Urine Bilirubin Urine Urobilinogen Ur Leukocyte Esterase Urine RBC Urine WBC Ur Squamous Epith Cells Urine Bacteria Urine Mucus Digoxin 0.45 L COVID-19 (TAB) Blood Type 05/24/20 05/24/20 05/24/20 23:40 23:40 23:57 WBC RBC Hgb Hct MCV MCH MCHC RDW Std Deviation RDW Coeff of Casi Plt Count MPV Immature Gran % (Auto) Neut % (Auto) Lymph % (Auto) [place] % (Auto) Eos % (Auto) Baso % (Auto) Absolute Neuts (auto) Absolute Lymphs (auto) Nucleated RBC % PT INR Fibrinogen D-Dimer Quant (PE/DVT) Sodium Potassium Chloride Carbon Dioxide Anion Gap BUN Creatinine Estim Creat Clear Calc Est GFR (MDRD) Af Amer Est GFR (MDRD) Non-Af BUN/Creatinine Ratio Glucose Lactic Acid Calcium Total Bilirubin AST ALT Alkaline Phosphatase Lactate Dehydrogenase Total Creatine Kinase Troponin I B-Natriuretic Peptide 167.3 H Total Protein Albumin Globulin Albumin/Globulin Ratio Procalcitonin 0.06 Urine Color Yellow Urine Clarity Clear Urine pH 5.0 Ur Specific [place] 1.015 Urine Protein 15 H Urine Glucose (UA) Normal Urine Ketones Negative Urine Occult Blood 10 H Urine Nitrite Negative Urine Bilirubin Negative Urine Urobilinogen Normal Ur Leukocyte Esterase 500 H Urine RBC 0-5 SEEN Urine WBC 10-25 SEEN Ur Squamous Epith Cells 0 SEEN Urine Bacteria RARE Urine Mucus 0 SEEN Digoxin COVID-19 (TAB) Blood Type 05/25/20 05/25/20 00:02 09:50 WBC RBC Hgb Hct MCV MCH MCHC RDW Std Deviation RDW Coeff of Casi Plt Count MPV Immature Gran % (Auto) Neut % (Auto) Lymph % (Auto) [place] % (Auto) Eos % (Auto) Baso % (Auto) Absolute Neuts (auto) Absolute Lymphs (auto) Nucleated RBC % PT INR Fibrinogen D-Dimer Quant (PE/DVT) Sodium Potassium Chloride Carbon Dioxide Anion Gap BUN Creatinine Estim Creat Clear Calc Est GFR (MDRD) Af Amer Est GFR (MDRD) Non-Af BUN/Creatinine Ratio Glucose Lactic Acid Calcium Total Bilirubin AST ALT Alkaline Phosphatase Lactate Dehydrogenase Total Creatine Kinase Troponin I B-Natriuretic Peptide Total Protein Albumin Globulin Albumin/Globulin Ratio Procalcitonin Urine Color Urine Clarity Urine pH Ur Specific [place] Urine Protein Urine Glucose (UA) Urine Ketones Urine Occult Blood Urine Nitrite Urine Bilirubin Urine Urobilinogen Ur Leukocyte Esterase Urine RBC Urine WBC Ur Squamous Epith Cells Urine Bacteria Urine Mucus Digoxin COVID-19 (TAB) Detected Blood Type A NEGATIVE - Other Studies Radiology: [] reviewed Other Studies: [] Route of nutrition/ use of supplements: [] Nutritional Intake: [] IV Site: [] Yancey Catheter: [] - Physical Exam General: Alert, Oriented x3, Cooperative, No apparent distress HEENT: Atraumatic, PERRLA, EOMI Neck: Supple, No Nodes Lungs: Diminished Cardiovascular: Regular rate, Regular Rhythm Abdomen: Soft, Non Tender, Non-Distended Extremities: No edema Skin: No rashes IV Site: Peripheral, without redness Musculoskeletal: No Tenderness to Palpation of Joints or Extremities Neurological: Cranial nerves II-XII grossly intact - Assessment/Plan Antibiotics: [] Assessment/Plan: [] Active and Suspected Problems (Last Updated 05/25/20 @ 02:[address] Ellie Bagley MD) Pneumonia (Acute) Dyspnea (Acute) UTI (urinary tract infection) (Acute) COVID-19 (Acute) covid with acute hypoxic resp failure - on dex. Reviewed EUA and risks/benefits of remdesivir, and she has consented. Will start. On ceftriaxone while Ucx pending. Will follow, thank you. Patient or caregiver was given a copy of the Remdesivir Fact Sheet for Patients and Parents/Caregivers. The following information was communicated to the patient or caregiver: Remdesivir is not an FDA approved drug. The FDA has authorized the emergency use of Remdesivir. The patient had the option to refuse or accept treatment with Remdesivir. The patient was informed that the number of people treated with Remdesivir is small at this time. The potential benefits and potential risks of Remdesivir are not fully known. Potential benefits of Remdesivir include a shorter time to recovery of COVID-19 infection. Potential risks or side effects of Remdesivir include sweating, shivering, nausea and vomiting or low blood pressure related to a reaction to the medication infusion and increases in liver enzymes. No drugs are approved by the FDA to treat COVID-19 at this time. The patient (or appointed patient service representative) stated understanding of information communicated and wished to proceed with Remdesivir treatment.
[2020-05-25] MEDS: MELATONIN 10 MG TABLET PO (22:26)
[2020-05-26] VITALS (14 sets, daily range): BP systolic 132–154; BP diastolic 68–93; PULSE 59–74; RESP 16–18; TEMP 36.3–36.8; O2SAT 93–96
--- NOTE | 2020-05-26 07:28 | PCM.PN.HOSP ---
Patient Problems: Active and Suspected Problems (Last Updated 05/25/20 @ 02:[address] Ellie Bagley MD) Pneumonia (Acute) Dyspnea (Acute) UTI (urinary tract infection) (Acute) COVID-19 (Acute) Reason for Visit: Follow-up for COVID-19 pneumonia. Objective: Afebrile. Blood pressure and heart rate are controlled. 96% on room air. No nausea, vomiting or abdominal cramps. Physical exam General: Alert, Oriented x3, Cooperative HEENT: Atraumatic, PERRLA, EOMI, Normocephalic Oral: No Gingival or Mucosal Lesions/ Ulcerations Neck: Supple, No JVD, Negative Carotid Bruits Lungs: Air entry diminished in bilateral lung bases. No crepitation/rhonchi Cardiovascular: Regular rate, Regular Rhythm, Normal S1, Normal S2, soft midsystolic click present cardiac apex Abdomen: Bowel Sounds Present, Soft, Non Tender, Non-Distended : No renal angle tenderness. No suprapubic tenderness. Extremities: No edema, Capillary Refill Less than 3 Seconds Skin: No rashes, No breakdown Musculoskeletal: No Tenderness to Palpation of Joints or Extremities Neurological: Cranial nerves II-XII grossly intact, Deep Tendon Reflexes 2+/4 and Symmetrical, Neuro grossly intact Psych/Mental Status: Normal Affect, Appropriate. Vitals/I&O's: Vital Signs Temp Pulse Resp BP Pulse Ox 97.4 F L 61 16 149/75 H 96 05/26/20 04:15 05/26/20 04:20 05/26/20 04:15 05/26/20 04:15 05/26/20 04:15 Oxygen Delivery Method Room Air Weight: 165 lb 9.074 oz Body Mass Index (BMI) 25.9 Finger Stick Blood Glucose 121 Intake and Output for Last 24 Hours 05/24/20 05/25/20 05/26/20 23:59 23:59 23:59 Intake Total 1391.67 / 1391.67 250 / 250 Balance 1391.67 / 1391.67 250 / 250 Laboratory Results 05/24/20 23:40: B-Natriuretic Peptide 167.3 H 05/24/20 23:40: Procalcitonin 0.06 05/25/20 09:50: Blood Type A NEGATIVE Current Medications Acetaminophen (Acetaminophen 325 Mg Tablet) 650 mg PO Q6H PRN PRN PRN Reason: Pain Score 1-10/Temp > 100.7 F Acetylcysteine (Acetylcysteine (Mucomyst Oral) 20% Soln) 1,200 mg PO BID [facility] TO [facility] Last Admin: 05/25/20 22:26 Dose: 1,200 mg Documented by: Albuterol Sulfate (Albuterol 2.5 Mg/3 Ml Vial.Neb.) 2.5 mg INHALATION Q4H PRN PRN PRN Reason: Shortness of breath, wheezing Aspirin (Aspirin 81 Mg Tab.Chew) 81 mg PO DAILY@0800 [facility] Last Admin: 05/25/20 08:48 Dose: 81 mg Documented by: Dexamethasone Sodium Phosphate (Dexamethasone 10 Mg/Ml Vial) 6 mg IV DAILY [facility] Last Admin: 05/25/20 08:53 Dose: 6 mg Documented by: Digoxin (Digoxin 125 Mcg Tablet) 125 mcg PO DAILY [facility] Last Admin: 05/25/20 08:50 Dose: 125 mcg Documented by: Enoxaparin Sodium (Enoxaparin 30 Mg/0.3 Ml Syringe) 30 mg SC Q12 [facility] Last Admin: 05/25/20 22:26 Dose: 30 mg Documented by: Sodium Chloride () 250 mls @ 15 mls/hr IV .[id number] PRN PRN Reason: Saline Flush Sodium Chloride () 250 mls @ 15 mls/hr IV .[id number] PRN PRN Reason: Additional IVPB Infusion Ceftriaxone Sodium (Rocephin) 1 gm in 50 mls @ 100 mls/hr IV Q24H [facility] Last Infusion: 05/25/20 22:56 Dose: Infused Documented by: Remdesivir (Investigational) (100 mg/ Sodium Chloride) 250 mls @ 125 mls/hr IV DAILY [facility]; Protocol Stop: 05/29/20 11:59 Lisinopril (Lisinopril 10 Mg Tablet) 10 mg PO DAILY [facility] Last Admin: 05/25/20 08:50 Dose: 10 mg Documented by: Magnesium Chloride (Magnesium Chloride 64 Mg Delay Rel.Tablet) 128 mg PO DAILY [facility] Last Admin: 05/25/20 08:49 Dose: 128 mg Documented by: Melatonin (Melatonin 10 Mg Tablet) 10 mg PO QHS [facility] Last Admin: 05/25/20 22:26 Dose: 10 mg Documented by: Metoprolol Succinate (Metoprolol(Xl)Succ 25 Mg Tablet) 25 mg PO DAILY [facility] Last Admin: 05/25/20 08:52 Dose: 25 mg Documented by: Nutritional Formula (Lactose Free) (Ensure Enlive 120 Ml Liquid) 120 ml PO 4X/DAY [facility] Last Admin: 05/25/20 22:26 Dose: 120 ml Documented by: Pantoprazole Sodium (Pantoprazole Sodium 40 Mg Tablet) 40 mg PO DAILY [facility] Last Admin: 05/25/20 08:52 Dose: 40 mg Documented by: Senna/Docusate Sodium (Senna/Docusate Sodium 1 Tablet) 2 tablet PO BID PRN PRN PRN Reason: Constipation Sodium Chloride (0.9% Saline Lock 10 Ml Syringe) 10 - 40 ml IV UD PRN PRN Reason: SALINE FLUSH Last Admin: 05/25/20 04:45 Dose: 10 ml Documented by: STROKE Vital Signs/Narrative: Vital Signs Temp Pulse Resp BP Pulse Ox 05/26/20 04:20 61 05/26/20 04:15 97.4 F L 70 16 149/75 H 96 Medical Necessity - Tobacco Use Smoking Status: Never smoker Assessment/Plan All Active Problems (Last Updated 05/25/20 @ 02:[address] Ellie Bagley MD) Pneumonia (Acute) Dyspnea (Acute) UTI (urinary tract infection) (Acute) COVID-19 (Acute) This is an 85 years old female patient presented to the emergency room because of generalized body aches and pains, low-grade fever, cough and malaise and tested positive for COVID-19 is being admitted for acute COVID-19 pneumonia as well as probable acute cystitis. #1 acute COVID-19 pneumonia: Chest x-ray shows right upper lobe infiltrate and atelectasis infiltrate in right lung base. Chest CTA was done and individually reviewed. No evidence of PE or dissection. Multifocal bilateral peripheral and basilar consolidation infiltrates consistent with COVID-19 pneumonia. Currently patient is on room air with no tachypnea. Inflammatory markers followed. Procalcitonin normal. BNP 167, LDH 265, liver chemistry AST 70, alkaline phosphatase 258. LDH 265. CK normal. Troponin normal. 05/26: Patient seen by ID. Started on remdesivir. Continue ceftriaxone and Decadron.. Azithromycin discontinued. Urine culture shows mixed gram-positive and gram-negative organism suggestive of contamination. Blood cultures x2 are pending. #2 UTI ruled out: Patient had increased frequency for last few days prior to admission. Urinalysis reviewed and dysuria 10-25 cells. LE 500. Urine culture and blood cultures are pending. Patient had history of UTI, about 1 time or less than per year last few years. UTI ruled out. #3 paroxysmal atrial fibrillation: Rate is controlled, blood pressure stable. Continue digoxin and metoprolol for rate control. Patient is not on anticoagulation. #4 hypertension: Blood pressure stable, continue lisinopril and metoprolol. #5 GERD: Continue PPI. #6 CODE STATUS: Full code, discussed with the patient in the presence of her . #7 DVT prophylaxis: Subcu Lovenox. Laboratory Results 05/24/20 23:40: B-Natriuretic Peptide 167.3 H 05/24/20 23:40: Procalcitonin 0.06 05/25/20 09:50: Blood Type A NEGATIVE Clinical Impression(s) from Imaging Studies Chest X-Ray 05/24/20 23:30 IMPRESSION: Small right upper lobe infiltrate. Atelectasis versus small infiltrate in the right lower lobe. Chest CTA 05/25/20 05:19 IMPRESSION: 1. No CTA demonstrated pulmonary embolism or arterial dissection. 2. Multifocal airspace disease consistent with multifocal pneumonia. Electronically Signed: Aniyah Hess MD at 7:03 EDT , Service support , Inpatient E&M: [id number] Subs Hosp L2
[2020-05-26 08:09] LABS: Absolute Lymphocyte Count 1.81 X10^3/uL (0.83-4.51); Absolute Neutrophil Count 2.4 X10^3/uL (2.0-7.7); Hematocrit 41.2 % (37-47); Hemoglobin 12.8 g/dL (12.0-15.0); Lymphocyte # 1.81 X10^3/ul (4.0); Lymphocyte % 37.6 % (19-41); Mean Corp Hgb Conc 31.1 g/dL (32-36); Mean Corpuscular Hgb 26.6 pg (27.0-32.0); Mean Corpuscular Volume 85.5 fL (81-99); Mean Platelet Vol. 10.4 fl (6.2-12.0); Monocyte# 0.62 X10^3/uL; Monocyte% 12.9 % (0-10); NRBC Flagged by Analyzer 0 % (0-5); Neutrophil # 2.36 X10^3/uL (2.7-7.7); Neutrophil % 49.1 % (47-70); Platelet Count 192 K/mm3 (150-450); RBC Distribution Width CV 14.1 % (11.6-14.6); RBC Distribution Width SD 44.2 fl (35.1-43.9); Red Blood Count 4.82 M/mm3 (4.2-5.4); White Blood Count 4.8 K/mm3 (4.4-11.0)
[2020-05-26 08:35] LABS: ALB/GLOB Ratio 0.9 RATIO (0.9-2.4); AST(SGOT) 45 U/L (15-37); Alanine Aminotransfer ALT/SGPT 42 U/L (13-56); Alkaline Phosphatase 231 U/L (45-117); Anion Gap 5 (5-15); BUN 28 mg/dL (7-18); BUN/Creat Ratio 28.7 RATIO (10-20); Calcium,Total 8.7 mg/dL (8.5-10.1); Chloride 108 mmol/L (98-107); Creatinine, Serum 0.97 mg/dL (0.55-1.02); EST Glomerular Filtration Rate 58 mL/min (>60); Est Glom Filt Rate - Afr Amer 70 mL/min (>60); Estimated Creatinine Clearance 43.48 ml/min; Globulin 3.5 g/dL (2.2-4.2); Glucose 100 mg/dL (74-106); Potassium 4.4 mmol/L (3.5-5.1); Protein, Total 6.5 g/dL (6.4-8.2); Sodium Level 140 mmol/L (136-145)
[2020-05-26] MEDS: Aspirin 81 MG TAB.CHEW PO (10:27)
[2020-05-26] MEDS: dexAMETHasone 10 MG/ML Vial 6 MG IV (10:28)
[2020-05-26] MEDS: Digoxin 125 MCG Tablet PO (10:28)
[2020-05-26] MEDS: Enoxaparin 30 MG/0.3 ML Syringe SC ×2 (10:29→22:51)
[2020-05-26] MEDS: Magnesium Chloride 64 MG Delay Rel.Tablet 128 MG PO (10:30)
[2020-05-26] MEDS: Pantoprazole Sodium 40 MG Tablet PO (10:31)
[2020-05-26] MEDS: Metoprolol(XL)Succ 25 MG Tablet PO (10:33)
[2020-05-26] MEDS: Lisinopril 10 MG Tablet PO (10:34)
[2020-05-26] MEDS: Acetylcysteine (Mucomyst Oral) 20% SOLN 1200 MG PO ×2 (10:56→22:52)
--- NOTE | 2020-05-26 15:46 | PN.ID_ITS ---
Patient Problems: Active and Suspected Problems (Last Updated 05/25/20 @ 02:[address] Ellie Bagley MD) Pneumonia (Acute) Dyspnea (Acute) UTI (urinary tract infection) (Acute) COVID-19 (Acute) Subjective: Feeling much better today, less aches, no fever - Physical Exam Vitals/I&O's: Vital Signs Temp Pulse Resp BP Pulse Ox 97.6 F L 66 18 154/71 H 93 05/26/20 13:20 05/26/20 13:20 05/26/20 13:23 05/26/20 13:20 05/26/20 13:20 Oxygen Delivery Method Room Air Weight: 75.1 kg Body Mass Index (BMI) 25.9 Finger Stick Blood Glucose 121 Intake and Output for Last 24 Hours 05/24/20 05/25/20 05/26/20 23:59 23:59 23:59 Intake Total 1391.67 / 1391.67 250 / 250 Balance 1391.67 / 1391.67 250 / 250 General: Alert, Cooperative, No apparent distress Lungs: Clear to auscultation, Diminished Cardiovascular: Regular rate, Regular Rhythm Abdomen: Soft, Non Tender, Non-Distended Skin: No rashes Microbiology Past 72 Hours 05/24/20 23:57 Urine, Clean Catch Urine Culture - Final Mixed Gram Pos & Gram Neg Org Laboratory Results 05/26/20 07:53: WBC 4.8, RBC 4.82, Hgb 12.8, Hct 41.2, MCV 85.5, MCH 26.6 L, MCHC 31.1 L, RDW Std Deviation 44.2 H, RDW Coeff of Casi 14.1, Plt Count 192, MPV 10.4, Immature Gran % (Auto) 0.400, Neut % (Auto) 49.1, Lymph % (Auto) 37.6, [place] % (Auto) 12.9 H, Eos % (Auto) 0.0, Baso % (Auto) 0.0, Absolute Neuts (auto) 2.4, Absolute Lymphs (auto) 1.81, Nucleated RBC % 0 05/26/20 07:53: Sodium 140, Potassium 4.4, Chloride 108 H, Carbon Dioxide 27.0, Anion Gap 5, BUN 28 H, Creatinine 0.97, Estim Creat Clear Calc 43.48, Est GFR (MDRD) Af Amer 70, Est GFR (MDRD) Non-Af 58 L, BUN/Creatinine Ratio 28.7 H, Glucose 100, Calcium 8.7, Total Bilirubin 0.20, AST 45 H, ALT 42, Alkaline Phosphatase 231 H, Total Protein 6.5, Albumin 3.0 L, Globulin 3.5, Albumin/Globulin Ratio 0.9 Current Medications Acetaminophen (Acetaminophen 325 Mg Tablet) 650 mg PO Q6H PRN PRN PRN Reason: Pain Score 1-10/Temp > 100.7 F Acetylcysteine (Acetylcysteine (Mucomyst Oral) 20% Soln) 1,200 mg PO BID [facility] Last Admin: 05/26/20 10:56 Dose: 1,200 mg Documented by: Albuterol Sulfate (Albuterol 2.5 Mg/3 Ml Vial.Neb.) 2.5 mg INHALATION Q4H PRN PRN PRN Reason: Shortness of breath, wheezing Aspirin (Aspirin 81 Mg Tab.Chew) 81 mg PO DAILY@0800 [facility] Last Admin: 05/26/20 10:27 Dose: 81 mg Documented by: Digoxin (Digoxin 125 Mcg Tablet) 125 mcg PO DAILY [facility] Last Admin: 05/26/20 10:28 Dose: 125 mcg Documented by: Enoxaparin Sodium (Enoxaparin 30 Mg/0.3 Ml Syringe) 30 mg SC Q12 [facility] Last Admin: 05/26/20 10:29 Dose: 30 mg Documented by: Sodium Chloride () 250 mls @ 15 mls/hr IV .[id number] PRN PRN Reason: Saline Flush Sodium Chloride () 250 mls @ 15 mls/hr IV .[id number] PRN PRN Reason: Additional IVPB Infusion Remdesivir (Investigational) (100 mg/ Sodium Chloride) 250 mls @ 125 mls/hr IV DAILY [facility]; Protocol Stop: 05/29/20 11:59 Last Admin: 05/26/20 10:31 Dose: 125 mls/hr Documented by: Lisinopril (Lisinopril 10 Mg Tablet) 10 mg PO DAILY [facility] Last Admin: 05/26/20 10:34 Dose: 10 mg Documented by: Magnesium Chloride (Magnesium Chloride 64 Mg Delay Rel.Tablet) 128 mg PO DAILY [facility] Last Admin: 05/26/20 10:30 Dose: 128 mg Documented by: Melatonin (Melatonin 10 Mg Tablet) 10 mg PO QHS [facility] Last Admin: 05/25/20 22:26 Dose: 10 mg Documented by: Metoprolol Succinate (Metoprolol(Xl)Succ 25 Mg Tablet) 25 mg PO DAILY [facility] Last Admin: 05/26/20 10:33 Dose: 25 mg Documented by: Pantoprazole Sodium (Pantoprazole Sodium 40 Mg Tablet) 40 mg PO DAILY [facility] Last Admin: 05/26/20 10:31 Dose: 40 mg Documented by: Senna/Docusate Sodium (Senna/Docusate Sodium 1 Tablet) 2 tablet PO BID PRN PRN PRN Reason: Constipation Sodium Chloride (0.9% Saline Lock 10 Ml Syringe) 10 - 40 ml IV UD PRN PRN Reason: SALINE FLUSH Last Admin: 05/25/20 04:45 Dose: 10 ml Documented by: Medical Necessity - Tobacco Use Smoking Status: Never smoker Route of nutrition/ use of supplements: [] Nutritional Intake: [] IV Site: [] Yancey Catheter: [] - Assessment/Plan Antibiotics: [] Assessment/Plan: [] Active and Suspected Problems (Last Updated 05/25/20 @ 02:[address] Ellie Bagley MD) Pneumonia (Acute) Dyspnea (Acute) UTI (urinary tract infection) (Acute) COVID-19 (Acute) covid with acute hypoxic resp failure - on dex and remdesivir. Feeling better today. Will stop ceftriaxone; ucx only with 25-50k mixed karsten. Ok for discharge on home O2 as needed. Quarantine for 10-14 days total from start of symptoms as long as she continues to improve. Will follow
[2020-05-26] MEDS: MELATONIN 10 MG TABLET PO (22:52)
[2020-05-27] VITALS (7 sets, daily range): BP systolic 118–155; BP diastolic 61–83; PULSE 50–65; RESP 18; TEMP 36.1–37; O2SAT 93–97
[2020-05-27 08:05] LABS: Hematocrit 40.9 % (37-47); Hemoglobin 12.6 g/dL (12.0-15.0); Mean Corp Hgb Conc 30.8 g/dL (32-36); Mean Corpuscular Hgb 26.5 pg (27.0-32.0); Mean Corpuscular Volume 85.9 fL (81-99); Mean Platelet Vol. 10.8 fl (6.2-12.0); Platelet Count 195 K/mm3 (150-450); RBC Distribution Width CV 14.1 % (11.6-14.6); RBC Distribution Width SD 45.1 fl (35.1-43.9); Red Blood Count 4.76 M/mm3 (4.2-5.4)
[2020-05-27 08:37] LABS: ALB/GLOB Ratio 0.9 RATIO (0.9-2.4); AST(SGOT) 50 U/L (15-37); Alanine Aminotransfer ALT/SGPT 54 U/L (13-56); Albumin, Serum 2.9 g/dL (3.2-5.0); Alkaline Phosphatase 209 U/L (45-117); Anion Gap 7 (5-15); BUN 31 mg/dL (7-18); BUN/Creat Ratio 35.5 RATIO (10-20); Calcium,Total 8.5 mg/dL (8.5-10.1); Chloride 109 mmol/L (98-107); Creatinine, Serum 0.87 mg/dL (0.55-1.02); EST Glomerular Filtration Rate 66 mL/min (>60); Est Glom Filt Rate - Afr Amer 80 mL/min (>60); Estimated Creatinine Clearance 48.48 ml/min; Globulin 3.4 g/dL (2.2-4.2); Glucose 95 mg/dL (74-106); Potassium 4.4 mmol/L (3.5-5.1); Protein, Total 6.3 g/dL (6.4-8.2); Sodium Level 141 mmol/L (136-145)
[2020-05-27] MEDS: Digoxin 125 MCG Tablet PO (10:52)
[2020-05-27] MEDS: Lisinopril 10 MG Tablet PO (10:52)
[2020-05-27] MEDS: Enoxaparin 30 MG/0.3 ML Syringe SC (10:52)
[2020-05-27] MEDS: Metoprolol(XL)Succ 25 MG Tablet PO (10:52)
[2020-05-27] MEDS: Aspirin 81 MG TAB.CHEW PO (10:53)
[2020-05-27] MEDS: Pantoprazole Sodium 40 MG Tablet PO (10:53)
[2020-05-27] MEDS: dexAMETHasone 4 MG Tablet 6 MG PO (10:53)
[2020-05-27] MEDS: Magnesium Chloride 64 MG Delay Rel.Tablet 128 MG PO (10:54)
--- NOTE | 2020-05-27 11:15 | PN_ITS ---
Patient Problems: Active and Suspected Problems (Last Updated 05/25/20 @ 02:[address] Ellie Bagley MD) Pneumonia (Acute) Dyspnea (Acute) UTI (urinary tract infection) (Acute) COVID-19 (Acute) Reason for Visit: Follow-up for COVID-19 pneumonia Objective: Patient is feeling better. No shortness of breath or fever. Heart rate in 60s. No nausea or vomiting. On remdesivir Physical exam General: Alert, Oriented x3, Cooperative HEENT: Atraumatic, PERRLA, EOMI, Normocephalic Oral: No Gingival or Mucosal Lesions/ Ulcerations Neck: Supple, No JVD, Negative Carotid Bruits Lungs: Air entry diminished in bilateral lung bases. No crepitation/rhonchi Cardiovascular: Regular rate, Regular Rhythm, Normal S1, Normal S2, No murmurs Abdomen: Bowel Sounds Present, Soft, Non Tender, Non-Distended : No renal angle tenderness. No suprapubic tenderness. Extremities: No edema, Capillary Refill Less than 3 Seconds Skin: No rashes, No breakdown Musculoskeletal: No Tenderness to Palpation of Joints or Extremities Neurological: Cranial nerves II-XII grossly intact, Deep Tendon Reflexes 2+/4 and Symmetrical, Neuro grossly intact Psych/Mental Status: Normal Affect, Appropriate. Vitals/I&O's: Vital Signs Temp Pulse Resp BP Pulse Ox 98.6 F 63 18 133/83 H 95 05/27/20 04:57 05/27/20 10:52 05/27/20 04:57 05/27/20 04:57 05/27/20 04:57 Oxygen Delivery Method Room Air Weight: 165 lb 9.074 oz Body Mass Index (BMI) 25.9 Finger Stick Blood Glucose 121 Intake and Output for Last 24 Hours 05/25/20 05/26/20 05/27/20 23:59 23:59 23:59 Intake Total 1391.67 / 1391.67 497.92 / 617.92 320 / 320 Balance 1391.67 / 1391.67 497.92 / 617.92 320 / 320 Microbiology Past 72 Hours 05/24/20 23:57 Urine, Clean Catch Urine Culture - Final Mixed Gram Pos & Gram Neg Org Laboratory Results 05/27/20 07:45: WBC 5.0, RBC 4.76, Hgb 12.6, Hct 40.9, MCV 85.9, MCH 26.5 L, MCHC 30.8 L, RDW Std Deviation 45.1 H, RDW Coeff of Casi 14.1, Plt Count 195, MPV 10.8 05/27/20 07:45: Sodium 141, Potassium 4.4, Chloride 109 H, Carbon Dioxide 25.0, Anion Gap 7, BUN 31 H, Creatinine 0.87, Estim Creat Clear Calc 48.48, Est GFR (MDRD) Af Amer 80, Est GFR (MDRD) Non-Af 66, BUN/Creatinine Ratio 35.5 H, Glucose 95, Calcium 8.5, Total Bilirubin 0.20, AST 50 H, ALT 54, Alkaline Phosphatase 209 H, Total Protein 6.3 L, Albumin 2.9 L, Globulin 3.4, Albumin/Globulin Ratio 0.9 Current Medications Acetaminophen (Acetaminophen 325 Mg Tablet) 650 mg PO Q6H PRN PRN PRN Reason: Pain Score 1-10/Temp > 100.7 F Acetylcysteine (Acetylcysteine (Mucomyst Oral) 20% Soln) 1,200 mg PO BID [facility] Last Admin: 05/26/20 22:52 Dose: 1,200 mg Documented by: Albuterol Sulfate (Albuterol 2.5 Mg/3 Ml Vial.Neb.) 2.5 mg INHALATION Q4H PRN PRN PRN Reason: Shortness of breath, wheezing Aspirin (Aspirin 81 Mg Tab.Chew) 81 mg PO DAILY@0800 [facility] Last Admin: 05/27/20 10:53 Dose: 81 mg Documented by: Dexamethasone (Dexamethasone 4 Mg Tablet) 6 mg PO DAILY@0800 [facility] Stop: 06/03/20 08:01 Last Admin: 05/27/20 10:53 Dose: 6 mg Documented by: Digoxin (Digoxin 125 Mcg Tablet) 125 mcg PO DAILY [facility] Last Admin: 05/27/20 10:52 Dose: 125 mcg Documented by: Enoxaparin Sodium (Enoxaparin 30 Mg/0.3 Ml Syringe) 30 mg SC Q12 [facility] Last Admin: 05/27/20 10:52 Dose: 30 mg Documented by: Sodium Chloride () 250 mls @ 15 mls/hr IV .[id number] PRN PRN Reason: Saline Flush Sodium Chloride () 250 mls @ 15 mls/hr IV .[id number] PRN PRN Reason: Additional IVPB Infusion Remdesivir (Investigational) (100 mg/ Sodium Chloride) 250 mls @ 125 mls/hr IV DAILY [facility]; Protocol Stop: 05/29/20 11:59 Last Admin: 05/27/20 10:49 Dose: 125 mls/hr Documented by: Lisinopril (Lisinopril 10 Mg Tablet) 10 mg PO DAILY [facility] Last Admin: 05/27/20 10:52 Dose: 10 mg Documented by: Magnesium Chloride (Magnesium Chloride 64 Mg Delay Rel.Tablet) 128 mg PO DAILY [facility] Last Admin: 05/27/20 10:54 Dose: 128 mg Documented by: Melatonin (Melatonin 10 Mg Tablet) 10 mg PO QHS [facility] Last Admin: 05/26/20 22:52 Dose: 10 mg Documented by: Metoprolol Succinate (Metoprolol(Xl)Succ 25 Mg Tablet) 25 mg PO DAILY [facility] Last Admin: 05/27/20 10:52 Dose: 25 mg Documented by: Pantoprazole Sodium (Pantoprazole Sodium 40 Mg Tablet) 40 mg PO DAILY [facility] Last Admin: 05/27/20 10:53 Dose: 40 mg Documented by: Senna/Docusate Sodium (Senna/Docusate Sodium 1 Tablet) 2 tablet PO BID PRN PRN PRN Reason: Constipation Sodium Chloride (0.9% Saline Lock 10 Ml Syringe) 10 - 40 ml IV UD PRN PRN Reason: SALINE FLUSH Last Admin: 05/25/20 04:45 Dose: 10 ml Documented by: STROKE Vital Signs/Narrative: Vital Signs Pulse 05/27/20 10:52 63 05/27/20 07:30 50 L Medical Necessity - Tobacco Use Smoking Status: Never smoker Assessment/Plan All Active Problems (Last Updated 05/25/20 @ 02:[address] Ellie Bagley MD) Pneumonia (Acute) Dyspnea (Acute) UTI (urinary tract infection) (Acute) COVID-19 (Acute) This is an 85 years old female patient presented to the emergency room because of generalized body aches and pains, low-grade fever, cough and malaise and tested positive for COVID-19 is being admitted for acute COVID-19 pneumonia as well as probable acute cystitis. #1 acute COVID-19 pneumonia: Chest x-ray shows right upper lobe infiltrate and atelectasis infiltrate in right lung base. Chest CTA was done and individually reviewed. No evidence of PE or dissection. Multifocal bilateral peripheral and basilar consolidation infiltrates consistent with COVID-19 pneumonia. Currently patient is on room air with no tachypnea. Inflammatory markers followed. Procalcitonin normal. BNP 167, LDH 265, liver chemistry AST 70, alkaline phosphatase 258. LDH 265. CK normal. Troponin normal. 05/26: Patient seen by ID. Started on remdesivir. Continue ceftriaxone and Decadron.. Azithromycin discontinued. Urine culture shows mixed gram-positive and gram-negative organism suggestive of contamination. Blood cultures x2 are pending. 05/27: On remdesivir. Ceftriaxone discontinued as urine culture shows mixed gram-positive and gram-negative organism. Blood cultures x2 are pending. #2 UTI ruled out: Patient had increased frequency for last few days prior to admission. Urinalysis reviewed and dysuria 10-25 cells. LE 500. Urine culture and blood cultures are pending. Patient had history of UTI, about 1 time or less than per year last few years. UTI ruled out. #3 paroxysmal atrial fibrillation: Rate is controlled, blood pressure stable. Continue digoxin and metoprolol for rate control. Patient is not on anticoag ulation. #4 hypertension: Blood pressure stable, continue lisinopril and metoprolol. #5 GERD: Continue PPI. #6 CODE STATUS: Full code, discussed with the patient in the presence of her . #7 DVT prophylaxis: Subcu Lovenox. Microbiology Past 72 Hours 05/24/20 23:57 Urine, Clean Catch Urine Culture - Final Mixed Gram Pos & Gram Neg Org Laboratory Results 05/27/20 07:45: WBC 5.0, RBC 4.76, Hgb 12.6, Hct 40.9, MCV 85.9, MCH 26.5 L, MCHC 30.8 L, RDW Std Deviation 45.1 H, RDW Coeff of Casi 14.1, Plt Count 195, MPV 10.8 05/27/20 07:45: Sodium 141, Potassium 4.4, Chloride 109 H, Carbon Dioxide 25.0, Anion Gap 7, BUN 31 H, Creatinine 0.87, Estim Creat Clear Calc 48.48, Est GFR (MDRD) Af Amer 80, Est GFR (MDRD) Non-Af 66, BUN/Creatinine Ratio 35.5 H, Glucose 95, Calcium 8.5, Total Bilirubin 0.20, AST 50 H, ALT 54, Alkaline Phosphatase 209 H, Total Protein 6.3 L, Albumin 2.9 L, Globulin 3.4, Albumin/Globulin Ratio 0.9 Clinical Impression(s) from Imaging Studies Chest X-Ray 05/24/20 23:30 IMPRESSION: Small right upper lobe infiltrate. Atelectasis versus small infiltrate in the right lower lobe. Chest CTA 05/25/20 05:19 IMPRESSION: 1. No CTA demonstrated pulmonary embolism or arterial dissection. 2. Multifocal airspace disease consistent with multifocal pneumonia. Electronically Signed: Aniyah Hess MD at 7:03 EDT , Service support , Inpatient E&M: [id number] [facility] Hosp L2
[2020-05-27] MEDS: Acetylcysteine (Mucomyst Oral) 20% SOLN 1200 MG PO (11:16)
--- NOTE | 2020-05-27 11:41 | PCM.DC ---
- Discharge Diagnoses Current Active Problems: Current Active and Chronic Problems (Last Updated 05/25/20 @ 02:[address] Ellie Bagley MD) Pneumonia (Acute) Dyspnea (Acute) UTI (urinary tract infection) (Acute) COVID-19 (Acute) GERD (gastroesophageal reflux disease) (Chronic) Nonrheumatic mitral (valve) prolapse (Chronic) Essential hypertension (Chronic) Paroxysmal atrial fibrillation (Chronic) You will use the following diet at home:: Cardiac Your food should be the consistency of: Regular Discharge Activity: May Not Drive Call your doctor if you observe: Fever of 101 or Higher, Coldness, Increased Pain, Numbness or Tingling, Change in Color, Inability to urinate, Shortness of breath, Dizziness, Swelling in the ankles, Chest pain, Prolonged hiccoughing, Increased palpitations (irregular heartbeat), Calf discomfort, Uncontrolled pain Additional Instructions: Self quarantine for 10 more days Allergies/Adverse Reactions: Allergies bee venom protein (honey bee) Allergy (Verified 05/24/20 23:15) Anaphylaxis also wasps latex Allergy (Verified 05/24/20 23:15) Rash Penicillins Allergy (Verified 05/24/20 23:15) Rash Medications to take at Discharge Aspirin [Aspirin, Baby] 81 mg PO DAILY@0800 12/06/13 Multivitamins,Therapeutic [Multivitamin] 1 tab PO DAILY 12/06/13 Melatonin 10 mg PO QHS 01/15/17 digoxin 125 mcg (0.125 mg) tablet 125 mcg PO DAILY #90 tab 03/05/19 metoprolol succinate 25 mg tablet,extended release 24 hr 25 mg PO DAILY #30 tab 01/20/20 cholecalciferol (vitamin D3) 25 mcg (1,000 unit) capsule 4,000 unit PO DAILY cap 01/31/20 lisinopril 10 mg tablet 10 mg PO DAILY 01/31/20 magnesium 250 mg tablet 500 mg PO DAILY tab 01/31/20 mecobalamin (vitamin B12) 1,000 mcg chewable tablet 1,000 mcg PO DAILY 01/31/20 pantoprazole 40 mg tablet,delayed release 40 mg PO DAILY 01/31/20 Dexamethasone [Decadron] 6 mg PO DAILY 7 Days #7 tab 05/27/20 Guaifenesin [Mucinex] 1,200 mg PO BID #14 tab.er.12h 05/27/20 The following prescriptions were given: Dexamethasone [Decadron] 6 mg PO DAILY 7 Days #7 tab Transmission Status: Pending to [facility] Guaifenesin [Mucinex] 1,200 mg PO BID #14 tab.er.12h Transmission Status: Pending to [facility] Primary Care Physician: Antonio Garsia DO [Primary Care Provider] - Please follow up with your Primary Care Physician in: In 1 week, virtual visit Test Results: Test results from this visit will be discussed in further detail at your follow-up appointment, if applicable. Please Follow Up With: Shon Jordan MD When: SCHEDULED
--- NOTE | 2020-05-27 11:43 | PCM.DC.SUM ---
Discharge Date and Diagnosis - Problem List Patient Problems: Active and Suspected Problems (Last Updated 05/25/20 @ 02:[address] Ellie Bagley MD) Pneumonia (Acute) Dyspnea (Acute) UTI (urinary tract infection) (Acute) COVID-19 (Acute) Date of Admission: 05/25/20 Date of Discharge: 05/27/20 - Primary Discharge Diagnosis Acute Problems: Active Problems (Last Updated 05/25/20 @ 02:[address] Ellie Bagley MD) Pneumonia (Acute) Dyspnea (Acute) UTI (urinary tract infection) (Acute) COVID-19 (Acute) - Secondary Discharge Diagnosis Chronic Problems: Chronic Problems (Last Updated 05/25/20 @ 02:[address] Ellie Bagley MD) SVT (supraventricular tachycardia) (Chronic) GERD (gastroesophageal reflux disease) (Chronic) Nonrheumatic mitral (valve) prolapse (Chronic) Essential hypertension (Chronic) Ventricular ectopy (Chronic) Paroxysmal atrial fibrillation (Chronic) Hospital Course and Treatment Operations: None Summary of Care Provided: This is an 85 years old female patient presented to the emergency room because of generalized body aches and pains, low-grade fever, cough and malaise and tested positive for COVID-19 is being admitted for acute COVID-19 pneumonia as well as probable acute cystitis. #1 acute COVID-19 pneumonia: Chest x-ray shows right upper lobe infiltrate and atelectasis infiltrate in right lung base. Chest CTA was done and individually reviewed. No evidence of PE or dissection. Multifocal bilateral peripheral and basilar consolidation infiltrates consistent with COVID-19 pneumonia. Currently patient is on room air with no tachypnea. Inflammatory markers followed. Procalcitonin normal. BNP 167, LDH 265, liver chemistry AST 70, alkaline phosphatase 258. LDH 265. CK normal. Troponin normal. Patient was started on remdesivir and completed 3 doses. Patient was seen by ID. Initially started on ceftriaxone and azithromycin. Azithromycin was discontinued urine culture showed mixed gram-positive and gram-negative organism sensitive of contamination. Therefore ceftriaxone was discontinued TOO. Discussed with ID on 05/27/2020. He advised the patient can be discharged as he does not require oxygen her vitals are stable. Does not have fever. Does not have to complete full 5 doses of remdesivir as she improved. #2 UTI ruled out: Patient had increased frequency for last few days prior to admission. Urinalysis reviewed and dysuria 10-25 cells. LE 500. Urine culture and blood cultures are pending. Patient had history of UTI, about 1 time or less than per year last few years. UTI ruled out. #3 paroxysmal atrial fibrillation: Rate is controlled, blood pressure stable. Continue digoxin and metoprolol for rate control. Patient is not on anticoagulation. #4 hypertension: Blood pressure stable, continue lisinopril and metoprolol. #5 GERD: Continue PPI. #6 CODE STATUS: Full code, discussed with the patient in the presence of her . #7 DVT prophylaxis: Subcu Lovenox. Discharge medication reconciliation done. Discharge follow-up instructions completed. Discharge process discussed with the patient and all questions were answered to patient's satisfaction. Prescription for Decadron and Mucinex given. I called the patient informed about the discharge plan. I also called the son Nitish Foster and left a voice message. Total time spent, exact 35 minutes on discharge meds reconciliation, examination, coordination of care with nurses and ancillary staff, review of imaging and blood test and discussion with the patient on follow-up instructions Microbiology Past 72 Hours 05/24/20 23:57 Urine, Clean Catch Urine Culture - Final Mixed Gram Pos & Gram Neg Org Laboratory Results 05/27/20 07:45: WBC 5.0, RBC 4.76, Hgb 12.6, Hct 40.9, MCV 85.9, MCH 26.5 L, MCHC 30.8 L, RDW Std Deviation 45.1 H, RDW Coeff of Casi 14.1, Plt Count 195, MPV 10.8 05/27/20 07:45: Sodium 141, Potassium 4.4, Chloride 109 H, Carbon Dioxide 25.0, Anion Gap 7, BUN 31 H, Creatinine 0.87, Estim Creat Clear Calc 48.48, Est GFR (MDRD) Af Amer 80, Est GFR (MDRD) Non-Af 66, BUN/Creatinine Ratio 35.5 H, Glucose 95, Calcium 8.5, Total Bilirubin 0.20, AST 50 H, ALT 54, Alkaline Phosphatase 209 H, Total Protein 6.3 L, Albumin 2.9 L, Globulin 3.4, Albumin/Globulin Ratio 0.9 Clinical Impression(s) from Imaging Studies Chest X-Ray 05/24/20 23:30 IMPRESSION: Small right upper lobe infiltrate. Atelectasis versus small infiltrate in the right lower lobe. Chest CTA 05/25/20 05:19 IMPRESSION: 1. No CTA demonstrated pulmonary embolism or arterial dissection. 2. Multifocal airspace disease consistent with multifocal pneumonia. Electronically Signed: Aniyah Hess MD at 7:03 EDT , Service support , [] Patient Problems: Active and Suspected Problems (Last Updated 05/25/20 @ 02:[address] Ellie Bagley MD) Pneumonia (Acute) Dyspnea (Acute) UTI (urinary tract infection) (Acute) COVID-19 (Acute) Subjective: Please see progress note for the physical findings of same date today - Physical Exam Vitals/I&O's: Vital Signs Temp Pulse Resp BP Pulse Ox 98.6 F 64 18 118/61 93 05/27/20 11:00 05/27/20 11:00 05/27/20 11:00 05/27/20 11:00 05/27/20 11:00 Oxygen Delivery Method Room Air Weight: 165 lb 9.074 oz Body Mass Index (BMI) 25.9 Finger Stick Blood Glucose 121 Intake and Output for Last 24 Hours 05/25/20 05/26/20 05/27/20 23:59 23:59 23:59 Intake Total 1391.67 / 1391.67 497.92 / 617.92 320 / 320 Balance 1391.67 / 1391.67 497.92 / 617.92 320 / 320 Microbiology Past 72 Hours 05/24/20 23:57 Urine, Clean Catch Urine Culture - Final Mixed Gram Pos & Gram Neg Org Laboratory Results 05/27/20 07:45: WBC 5.0, RBC 4.76, Hgb 12.6, Hct 40.9, MCV 85.9, MCH 26.5 L, MCHC 30.8 L, RDW Std Deviation 45.1 H, RDW Coeff of Casi 14.1, Plt Count 195, MPV 10.8 05/27/20 07:45: Sodium 141, Potassium 4.4, Chloride 109 H, Carbon Dioxide 25.0, Anion Gap 7, BUN 31 H, Creatinine 0.87, Estim Creat Clear Calc 48.48, Est GFR (MDRD) Af Amer 80, Est GFR (MDRD) Non-Af 66, BUN/Creatinine Ratio 35.5 H, Glucose 95, Calcium 8.5, Total Bilirubin 0.20, AST 50 H, ALT 54, Alkaline Phosphatase 209 H, Total Protein 6.3 L, Albumin 2.9 L, Globulin 3.4, Albumin/Globulin Ratio 0.9 Current Medications Acetaminophen (Acetaminophen 325 Mg Tablet) 650 mg PO Q6H PRN PRN PRN Reason: Pain Score 1-10/Temp > 100.7 F Acetylcysteine (Acetylcysteine (Mucomyst Oral) 20% Soln) 1,200 mg PO BID [facility] Last Admin: 05/27/20 11:16 Dose: 1,200 mg Documented by: Albuterol Sulfate (Albuterol 2.5 Mg/3 Ml Vial.Neb.) 2.5 mg INHALATION Q4H PRN PRN PRN Reason: Shortness of breath, wheezing Aspirin (Aspirin 81 Mg Tab.Chew) 81 mg PO DAILY@0800 [facility] Last Admin: 05/27/20 10:53 Dose: 81 mg Documented by: Dexamethasone (Dexamethasone 4 Mg Tablet) 6 mg PO DAILY@0800 [facility] Stop: 06/03/20 08:01 Last Admin: 05/27/20 10:53 Dose: 6 mg Documented by: Digoxin (Digoxin 125 Mcg Tablet) 125 mcg PO DAILY [facility] Last Admin: 05/27/20 10:52 Dose: 125 mcg Documented by: Enoxaparin Sodium (Enoxaparin 30 Mg/0.3 Ml Syringe) 30 mg SC Q12 [facility] Last Admin: 05/27/20 10:52 Dose: 30 mg Documented by: Sodium Chloride () 250 mls @ 15 mls/hr IV .[id number] PRN PRN Reason: Saline Flush Sodium Chloride () 250 mls @ 15 mls/hr IV .[id number] PRN PRN Reason: Additional IVPB Infusion Remdesivir (Investigational) (100 mg/ Sodium Chloride) 250 mls @ 125 mls/hr IV DAILY [facility]; Protocol Stop: 05/29/20 11:59 Last Admin: 05/27/20 10:49 Dose: 125 mls/hr Documented by: Lisinopril (Lisinopril 10 Mg Tablet) 10 mg PO DAILY [facility] Last Admin: 05/27/20 10:52 Dose: 10 mg Documented by: Magnesium Chloride (Magnesium Chloride 64 Mg Delay Rel.Tablet) 128 mg PO DAILY [facility] Last Admin: 05/27/20 10:54 Dose: 128 mg Documented by: Melatonin (Melatonin 10 Mg Tablet) 10 mg PO QHS [facility] Last Admin: 05/26/20 22:52 Dose: 10 mg Documented by: Metoprolol Succinate (Metoprolol(Xl)Succ 25 Mg Tablet) 25 mg PO DAILY [facility] Last Admin: 05/27/20 10:52 Dose: 25 mg Documented by: Pantoprazole Sodium (Pantoprazole Sodium 40 Mg Tablet) 40 mg PO DAILY [facility] Last Admin: 05/27/20 10:53 Dose: 40 mg Documented by: Senna/Docusate Sodium (Senna/Docusate Sodium 1 Tablet) 2 tablet PO BID PRN PRN PRN Reason: Constipation Sodium Chloride (0.9% Saline Lock 10 Ml Syringe) 10 - 40 ml IV UD PRN PRN Reason: SALINE FLUSH Last Admin: 05/25/20 04:45 Dose: 10 ml Documented by: Discharge Activity: May Not Drive Call your doctor if you observe: Fever of 101 or Higher, Coldness, Increased Pain, Numbness or Tingling, Change in Color, Inability to urinate, Shortness of breath, Dizziness, Swelling in the ankles, Chest pain, Prolonged hiccoughing, Increased palpitations (irregular heartbeat), Calf discomfort, Uncontrolled pain Home Medications: Medications to take at Discharge Aspirin [Aspirin, Baby] 81 mg PO DAILY@0800 12/06/13 Multivitamins,Therapeutic [Multivitamin] 1 tab PO DAILY 12/06/13 Melatonin 10 mg PO QHS 01/15/17 digoxin 125 mcg (0.125 mg) tablet 125 mcg PO DAILY #90 tab 03/05/19 metoprolol succinate 25 mg tablet,extended release 24 hr 25 mg PO DAILY #30 tab 01/20/20 cholecalciferol (vitamin D3) 25 mcg (1,000 unit) capsule 4,000 unit PO DAILY cap 01/31/20 lisinopril 10 mg tablet 10 mg PO DAILY 01/31/20 magnesium 250 mg tablet 500 mg PO DAILY tab 01/31/20 mecobalamin (vitamin B12) 1,000 mcg chewable tablet 1,000 mcg PO DAILY 01/31/20 pantoprazole 40 mg tablet,delayed release 40 mg PO DAILY 01/31/20 Dexamethasone [Decadron] 6 mg PO DAILY 7 Days #7 tab 05/27/20 Guaifenesin [Mucinex] 1,200 mg PO BID #14 tab.er.12h 05/27/20 Following Prescriptions Were Given to Patient: Dexamethasone [Decadron] 6 mg PO DAILY 7 Days #7 tab Transmission Status: Pending to [facility] Guaifenesin [Mucinex] 1,200 mg PO BID #14 tab.er.12h Transmission Status: Pending to [facility] Primary Care Physician: Antonio Garsia DO [Primary Care Provider] - Please follow up with your Primary Care Physician in: In 1 week, virtual visit Please Follow Up With: Shon Jordan MD When: SCHEDULED Medical Necessity - Tobacco Use Smoking Status: Never smoker Meaningful Use Info Meaningful Use Diagnoses (Choose all that apply): None applicable Please cancel the billing charge of progress note of today Inpatient E&M: [id number] Disch Hosp
--- NOTE | 2020-05-29 13:45 | CASEMGMT ---
BARBI KIM DC PHONE CALL DC DATE: 05/27/20 DC DISPOSITION: Home DC DIAGNOSIS: SARS COVID 2 Intro role of CM to patient via phone. the patient states she is feeling improved and her symptoms have lessened considerably. No shortness of breath at this time. She understands the instructions for isolation and quarantining for 10 days. Her has tested positive, however he does not have any significant symptoms at this time. The patient states she has friends and family who are bringing meals and groceries and no concerns at this time. She has all her medications and has good understanding of instructions. No care improvement suggestions were given @ this time. Ruba PATRICK RN ACM
== END 2020-05-27 18:39 | disposition home or self-care (01) | DRG 177 ==
LOC: ED 05-25 01:04 → MS2 05-25 02:40
PROVIDERS: Internal Medicine Infectious Disease; Admitting Provider Hospitalist; Emergency Provider Emergency Medicine; PCP Family Medicine; Visit Provider Internal Medicine
DX: U07.1 COVID-19 (principal); J12.89 Other viral pneumonia; I47.1 Supraventricular tachycardia; I34.1 Nonrheumatic mitral (valve) prolapse; I48.0 Paroxysmal atrial fibrillation; I49.3 Ventricular premature depolarization; I10 Essential (primary) hypertension; K21.9 Gastro-esophageal reflux disease without esophagitis; Z79.82 Long term (current) use of aspirin; Z79.899 Other long term (current) drug therapy
CPT/HCPCS: 36415; 71045; 71275; 80053; 80162; 81001; 82550; 83605; 83615; 83880; 84145; 84484; 85025; 85027; 85379; 85384; 85610; 86900; 86901; 87040; 87086; 87088; 87635; 93005; 97802; 99251; 99283; 99285; J7030; J7040; J7050; Q9967; A4216; G0463; U0002; U0003

== ENCOUNTER 2020-08-25 17:47 | Emergency (ER) | payer MEDICARE, OTHER, SELFPAY ==
[2020-05-25 13:30] VITALS: BMI 25.9
[2020-08-25 17:48] VITALS: BP 148/106; PULSE 75; RESP 18; TEMP 36.4; O2SAT 96; BMI 25.8
--- NOTE | 2020-08-25 17:57 | ED.DCSUM_ITS ---
History of Present Illness Chief Complaint: Nosebleed Informant: Patient Onset: Hours Context: Sudden Onset Timing: Continuous Quality: Epistaxis Location: Right Current Severity: - - Clamp placed by nursing staff and no active bleeding Maximum Severity: Moderate Worsened by: Nothing, started spontaneously Relieved by: Nose clamp Associated Symptoms: None Narrative: Patient is an 89-year-old woman who presents with spontaneous nosebleed right side. This is the third episode since the beginning of July. She is on a baby aspirin a day. She is on no anticoagulant. There is no history of trauma. She states she was sitting when her nose began to bleed. She states she did have large clots. She denies bleeding from her gums. She denies bruising easily. She denies blood in her urine. She denies black or maroon-colored stool. Prior similar symptoms: Yes - Did not seek medical attention Recent Illness/Hospitalization: No - Past Medical History (1) COVID-19 Status: Acute (2) Essential hypertension Status: Chronic (3) GERD (gastroesophageal reflux disease) Status: Chronic (4) Nonrheumatic mitral (valve) prolapse Status: Chronic (5) Paroxysmal atrial fibrillation Status: Chronic (6) SVT (supraventricular tachycardia) Status: Chronic (7) Ventricular ectopy Status: Chronic Past Medical History - Allergies and Home Meds Allergies/Adverse Reactions: Allergies bee venom protein (honey bee) Allergy (Verified 08/25/20 17:48) Anaphylaxis also wasps latex Allergy (Verified 08/25/20 17:48) Rash Penicillins Allergy (Verified 08/25/20 17:48) Rash Primary Care Physician: Antonio Garsia DO [Primary Care Provider] - Prior records reviewed: Yes Surgical History: cataract - Bilateral, hysterectomy - With bilateral salpingo- oophorectomy, - - Surgery on the left knee to repair a torn meniscus and fractured tibial plateau Lives: Spouse/ Significant Other Smoking Status: Never smoker Alcohol: None Drugs: None - Family History Maternal Family History: Family History (Last Reviewed 05/25/20 @ 02:[address] Ellie Bagley MD) Father CHF (congestive heart failure) Family History: Reports: No pertinent history Review of Systems General: Denies: Chills, Fever, Malaise Eyes: Denies: Visual changes - right, Blurred Vision - bilaterally ENT: Denies: Right ear pain, Rhinorrhea, Sore throat Cardiovascular: Denies: Chest pain, Palpitations Respiratory: Denies: Dyspnea, Dyspnea on exertion Gastrointestinal: Denies: Nausea, Vomiting, Melena, Hematochezia Genitourinary: Denies: Hematuria Neurological: Denies: Weakness, Parasthesia Hematologic: Denies: Easy bruising, Easy bleeding Allergy: Denies: Uticaria Physical Exam Vital Signs/Narrative: Vital Signs Temp Pulse Resp BP Pulse Ox 08/25/20 17:48 97.5 F L 75 18 148/106 H 96 Inital Vital Signs reviewed: Yes General: Well nourished, Well developed, Obese, No Acute Distress. Negative for: Cachectic, Contractures Head: Normocephalic, Atraumatic Eyes: Perrl, EOMI. Negative for: Pale conjunctiva, Scleral icterus ENT: Moist mucous membranes, - - Blood noted posteriorly. Patient has bleeding and oozing Y[place]enia box plexus on the right. There is no discrete area of bleeding. The entire area is bloody. Neck: Supple, Nontender Cardiovascular: Regular rate, Regular rhythm Respiratory: No distress Back: Nontender Skin: Normal color, No rash Neurological: Alert, Oriented x3, Cranial nerves II-XII grossly intact Psychological: Normal affect Diagnostic/Tx/Re-eval - Medical Decision Making Blood noted right naris. There is no active bleeding presently. Will return in 10 minutes to evaluate site of bleeding and treat accordingly. Procedures Procedure(s): Patient had a 5.5 cm anterior Rhino Rocket placed. She tolerated procedure well. She received first dose of antibiotics. Based on her allergies she received clindamycin. She was referred to Dr. Tomlin who is on-call for ENT. ED Disposition - Plan for ED Patient: Disposition: Home or Assisted Living Diagnosis: Acute anterior epistaxis Instructions: ED Epistaxis (Adult) Prescriptions: Clindamycin [Cleocin] 150 mg PO 4X/DAY #20 cap Prescription Printed Referrals: Antonio Garsia DO [Primary Care Provider] - Shakir Tomlin MD [STAFF PHYSICIAN] - 3-5 Days Additional Instructions: Stop taking baby aspirin until seen by Dr. Tomlin.
[2020-08-25] MEDS: Clindamycin HCl 150 MG Capsule PO (18:31)
== END 2020-08-25 18:34 | disposition home or self-care (01) ==
LOC: ED 18:30
PROVIDERS: Emergency Provider Emergency Medicine; PCP Family Medicine
DX: R04.0 Epistaxis (principal); I48.0 Paroxysmal atrial fibrillation; I47.1 Supraventricular tachycardia; I34.1 Nonrheumatic mitral (valve) prolapse; I10 Essential (primary) hypertension; E66.9 Obesity, unspecified; Z68.25 Body mass index [BMI] 25.0-25.9, adult; Z79.82 Long term (current) use of aspirin; Z79.899 Other long term (current) drug therapy; Z86.16 Personal history of COVID-19
CPT/HCPCS: 30903; 99283

== ENCOUNTER 2020-08-31 10:54 | Outpatient (RCR) | payer MEDICARE, OTHER, SELFPAY | END 2020-08-31 23:59 | LOC: IMMUN 10:54 | PROVIDERS: PCP Family Medicine; Visit Provider Family Medicine | DX: Z23 Encounter for immunization (principal) | CPT/HCPCS: 0011A; 0012A; 91301 ==

== ENCOUNTER → 2020-11-09 10:03 | Outpatient (CLI) | payer MEDICARE, OTHER, SELFPAY ==
[2020-11-08 13:00] VITALS: BMI 27.1
[2020-11-09 11:17] LABS: Absolute Lymphocyte Count 2.79 X10^3/uL (0.83-4.51); Absolute Neutrophil Count 3.7 X10^3/uL (2.0-7.7); Basophil# 0.09 X10^3/uL; Basophil% 1.2 % (0-1); Eosinophil# 0.32 X10^3/uL; Eosinophils% 4.3 % (0-5); Hematocrit 43.3 % (37-47); Hemoglobin 13.4 g/dL (12.0-15.0); Lymphocyte # 2.79 X10^3/ul (4.0); Lymphocyte % 37.1 % (19-41); Mean Corp Hgb Conc 30.9 g/dL (32-36); Mean Corpuscular Hgb 26.9 pg (27.0-32.0); Mean Corpuscular Volume 86.8 fL (81-99); Mean Platelet Vol. 11.3 fl (6.2-12.0); Monocyte# 0.63 X10^3/uL; Monocyte% 8.4 % (0-10); NRBC Flagged by Analyzer 0 % (0-5); Neutrophil # 3.67 X10^3/uL (2.7-7.7); Neutrophil % 48.7 % (47-70); Platelet Count 219 K/mm3 (150-450); RBC Distribution Width CV 14.5 % (11.6-14.6); RBC Distribution Width SD 45.1 fl (35.1-43.9); Red Blood Count 4.99 M/mm3 (4.2-5.4); White Blood Count 7.5 K/mm3 (4.4-11.0)
[2020-11-09 11:54] LABS: AST(SGOT) 20 U/L (15-37); Alanine Aminotransfer ALT/SGPT 21 U/L (13-56); Albumin, Serum 3.7 g/dL (3.2-5.0); Alkaline Phosphatase 98 U/L (45-117); Anion Gap 5 (5-15); BUN 27 mg/dL (7-18); BUN/Creat Ratio 28.4 RATIO (10-20); Bilirubin, Direct 0.12 mg/dL (0.00-0.30); Calcium,Total 9.3 mg/dL (8.5-10.1); Chloride 106 mmol/L (98-107); Cholesterol 189 mg/dL (200); Creatinine, Serum 0.95 mg/dL (0.55-1.02); EST Glomerular Filtration Rate 60 mL/min (>60); Est Glom Filt Rate - Afr Amer 72 mL/min (>60); Globulin 3.2 g/dL (2.2-4.2); Glucose 104 mg/dL (74-106); High Density Lipoprotein 53 mg/dL; Protein, Total 6.9 g/dL (6.4-8.2); Sodium Level 139 mmol/L (136-145); Thyroid Stim Hormone (TSH) 2.24 uIU/mL (0.358-3.74); Triglycerides 163 mg/dL; Very Low Density Lipoprotein 33 mg/dL (5-40)
[2020-11-09 12:01] LABS: Digoxin Level 0.62 ng/mL (0.80-2.00)
== END ==
PROVIDERS: PCP Family Medicine; Referring Provider Internal Medicine Cardiovascular Disease; Visit Provider Internal Medicine Cardiovascular Disease
DX: I48.0 Paroxysmal atrial fibrillation (principal); I49.3 Ventricular premature depolarization; I34.1 Nonrheumatic mitral (valve) prolapse; I10 Essential (primary) hypertension; R53.83 Other fatigue; R06.00 Dyspnea, unspecified; J18.9 Pneumonia, unspecified organism; I43 Cardiomyopathy in diseases classified elsewhere; E78.00 Pure hypercholesterolemia, unspecified
CPT/HCPCS: 36415; 80048; 80061; 80076; 80162; 84443; 85025

== ENCOUNTER → 2020-11-15 13:52 | Outpatient (CLI) | payer MEDICARE, OTHER, SELFPAY ==
[2020-11-08 13:00] VITALS: BMI 27.1
--- NOTE | 2020-11-15 13:54 | ECHOD_ITS ---
Reason For Study: DYSPNEA/SOB Procedure This was a 2D Doppler, Color Flow transthoracic echocardiogram. The exam was of adequate technical quality. Exam performed in department. Left Ventricle Normal LV size. Left ventricular systolic function is normal. The estimated ejection fraction is 65 %. Diastolic function is indeterminate. No regional wall motion abnormalities noted. Right Ventricle Normal RV size. Normal systolic function. Atria The left atrium is moderately enlarged. Normal right atrium. No doppler evidence for ASD. Mitral Valve There is no mitral annular calcification. Normal mitral valve. Mild (1+) mitral valve insufficiency. Tricuspid Valve Normal tricuspid valve. Trivial tricuspid valve insufficiency. Right ventricular systolic pressure estimated to be 30 mmHg. Aortic Valve Trisinus/trileaflet aortic valve. Normal aortic valve. Pulmonic Valve The pulmonic valve is not well visualized. Great Vessels Normal sized aortic root. Pericardium/Pleural No pericardial effusion. MMode/2D Measurements & Calculations LVIDd: 4.5 cm IVSd: 0.91 cm Ao root diam: 3.1 cm LVIDs: 3.0 cm LVPWd: 0.88 cm RVDd: 3.2 cm FS: 32.8 % LAV(MOD-bp): 62.3 ml LVAd ap4: 26.0 cm2 SV(MOD-sp4): 45.4 ml LAV(MOD-bp) Indexed: 32.8 ml/m2 EDV(MOD-sp4): 81.3 ml LAV(MOD-sp2): 67.1 ml EDV(sp4-el): 84.4 ml LAV(MOD-sp4): 50.2 ml LVAs ap4: 15.8 cm2 ESV(MOD-sp4): 35.8 ml ESV(sp4-el): 35.8 ml EF(MOD-sp4): 55.9 % EF(sp4-el): 57.6 % SV(sp4-el): 48.7 ml LA A4 area: 18.1 cm2 LA dimension(2D): 3.8 cm RA A4 area: 13.5 cm2 Time Measurements MV dec time: 0.24 sec Doppler Measurements & Calculations MV E max jefferson: 80.4 cm/sec Lat Peak E' Jefferson: 6.8 cm/sec Med Peak E' Jefferson: 5.4 cm/sec MV A max jefferson: 86.9 cm/sec E/E' lat: 11.8 E/E' med: 14.8 MV E/A: 0.93 Ao V2 max: 124.3 cm/sec LV V1 max: 80.8 cm/sec PA V2 max: 76.3 cm/sec Ao max P.2 mmHg LV V1 max P.6 mmHg TR max jefferson: 259.9 cm/sec TR max P.0 mmHg ECHO/Echo Complete Interpretation Summary Left ventricular systolic function is normal. The estimated ejection fraction is 65 %. The left atrium is moderately enlarged. Mild (1+) mitral valve insufficiency. Trivial tricuspid valve insufficiency. Right ventricular systolic pressure estimated to be 30 mmHg. Diastolic function is indeterminate. Ordering Physician: Shon Jordan Referring Physician: WEI JIMENEZ Performed By: Susie Del Rio RDCS
== END ==
PROVIDERS: PCP Family Medicine; Referring Provider Internal Medicine Cardiovascular Disease; Visit Provider Internal Medicine Cardiovascular Disease
DX: I48.0 Paroxysmal atrial fibrillation (principal); I49.3 Ventricular premature depolarization; I08.1 Rheumatic disorders of both mitral and tricuspid valves; I10 Essential (primary) hypertension; I43 Cardiomyopathy in diseases classified elsewhere; R53.83 Other fatigue; R06.02 Shortness of breath
CPT/HCPCS: 93306

== ENCOUNTER 2021-01-05 09:44 | Observation (INO) | payer MEDICARE, OTHER, SELFPAY ==
[2020-11-08 13:00] VITALS: BMI 27.1
[2021-01-05] VITALS (17 sets, daily range): BP systolic 126–188; BP diastolic 54–115; PULSE 60–78; RESP 12–23; TEMP 36.2–36.8; O2SAT 92–99; BMI 27.5; BMI 26.8
--- NOTE | 2021-01-05 09:45 | EKG12_ITS ---
Test Reason : STROKE Blood Pressure : / mmHG Vent. Rate : 064 BPM Atrial Rate : 064 BPM P-R Int : 204 ms QRS Dur : 096 ms QT Int : 424 ms P-R-T Axes : 047 011 128 degrees QTc Int : 437 ms Normal sinus rhythm Possible Inferior infarct , age undetermined Abnormal ECG Confirmed by HEATHER LARA, YOANA ([id number]), clinical editor EDENILSON WOO ([id number]) on 01/08/2021 10:35:24 AM Referred By: HANNA Confirmed By:YOANA ROMERO MD
--- NOTE | 2021-01-05 09:45 | CT_ITS ---
STUDY: CTA HEAD AND NECK WITH CONTRAST REASON FOR EXAM: Female, 85 years old. Neuro deficit, acute, stroke suspected RADIATION DOSAGE (If Supplied By Facility): CTDIvol = ( 46.30 ) mGy, DLP = ( 697.80 ) mGycm TECHNIQUE: CT angiography was performed with a multi-detector CT scanner. Data acquisition was obtained from the skull base through the vertex following intravenous administration of IV 100mL [id number]-[id number]. MIP images were reconstructed from the axial data set. Post-processing of the angiographic images was performed, with multiplanar reformation and 3D reconstruction. Individualized dose optimization techniques were used for this CT. COMPARISON: Comparison is made with prior study dated 12/22/2019. FINDINGS: Normal bilateral petrous carotid arteries. Normal right cavernous carotid artery with a normal supraclinoid bifurcation. Normal left cavernous carotid artery with a normal supraclinoid bifurcation. Normal right A1 segments of the anterior cerebral artery. Normal left A1 segments of the anterior cerebral artery. Normal intact anterior communicating artery (ACOM). Normal bilateral A2 segments of the anterior cerebral arteries. Normal right M1 and M2 segments of the middle cerebral arteries, with a normal M1 bifurcation. Normal left M1 and M2 segments of the middle cerebral arteries, with a normal M1 bifurcation. Normal right posterior communicating artery (PCOM). Normal left posterior communicating artery (PCOM). Normal bilateral vertebral arteries. Normal basilar artery with a normal basilar bifurcation. The visualized bilateral superior cerebellar (SCA) arteries are normal. Normal bilateral P1, P2 and visualized P3 segments of the posterior cerebral arteries. There is no demonstrated aneurysm of the [place]. There is no demonstrated abnormality of the visualized brain. AORTIC ARCH: There is atherosclerotic calcific plaque formation of the aortic arch and great vessels arising from the aortic arch, without a hemodynamically significant stenosis. There is a normal origin of the brachiocephalic, left common carotid, and left subclavian arteries. RIGHT CAROTID ARTERIES: Normal right common carotid artery (CCA). Normal right common carotid bulb. There is mild atherosclerotic plaque formation of the origin of the right internal carotid artery with less than 50% cross sectional diameter stenosis. Normal visualized cervical portion of the right internal carotid artery. Normal origin of the right external carotid artery (ECA). LEFT CAROTID ARTERIES: Normal left common carotid artery (CCA). Normal left common carotid bulb. There is extensive atherosclerotic and soft plaque formation of the origin of the left internal carotid artery with an estimated stenosis of greater than 70%. This is unchanged. Normal visualized cervical portion of the left internal carotid artery. Normal origin of the left external carotid artery (ECA). VERTEBRAL ARTERIES: Normal bilateral vertebral arteries. 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 This is unchanged. N.B. : The above information has been verbally conveyed by Sy Freeman MD to Christopher Portillo on 01/05/2021 10:04:56 (ET). Electronically Signed: Sy Freeman MD at 10:06 EDT , Service support ,
--- NOTE | 2021-01-05 09:45 | CT_ITS ---
STUDY: CT HEAD STROKE PROTOCOL W/O CONTRAST INJECTION REASON FOR EXAM: Female, 85 years old. Neuro deficit, acute, stroke suspected RADIATION DOSAGE (If Supplied By Facility): CTDIvol = ( 44.99 ) mGy, DLP = ( 770 924 ) mGycm TECHNIQUE: Transaxial CT imaging of the brain was performed without administration of intravenous contrast material. Individualized dose optimization techniques were used for this CT. COMPARISON: Comparison is made with prior study dated 12/22/2019. FINDINGS: Normal soft tissue structures. Normal calvarium. There is mild cerebral atrophy with widening of the extra-axial spaces and ventricular dilatation. There are areas of decreased attenuation within the white matter tracts of the supratentorial brain, consistent with microvascular disease changes. 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 Normal brainstem. Normal cerebellum. There is no intracranial hemorrhage. There are no findings of an acute ischemic infarction. Atherosclerotic vascular calcification of the cavernous portions of the internal carotid arteries bilaterally. Normal visualized paranasal sinuses. CT/STROKE Brain/Head without Cont IMPRESSION: Chronic involutional changes of the brain. N.B. : The above information has been verbally conveyed by Sy Freeman MD to Christopher Portillo on 01/05/2021 10:01:36 (ET). Electronically Signed: Sy Freeman MD at 10:02 EDT , Service support ,
[2021-01-05] MEDS: 0.9% Normal Saline 1,000 ML 999 ML IV (10:01)
--- NOTE | 2021-01-05 10:07 | ED.RN ---
pt states she was dizzy and lt side became weak and she fell.
[2021-01-05 10:09] LABS: Absolute Lymphocyte Count 4.29 X10^3/uL (0.83-4.51); Absolute Neutrophil Count 3.1 X10^3/uL (2.0-7.7); Basophil# 0.07 X10^3/uL; Basophil% 0.8 % (0-1); Eosinophil# 0.22 X10^3/uL; Eosinophils% 2.6 % (0-5); Hematocrit 40.6 % (37-47); Hemoglobin 12.8 g/dL (12.0-15.0); Lymphocyte # 4.29 X10^3/ul (0.83-4.51); Lymphocyte % 51.4 % (19-41); Mean Corp Hgb Conc 31.5 g/dL (32-36); Mean Corpuscular Hgb 26.7 pg (27.0-32.0); Mean Corpuscular Volume 84.8 fL (81-99); Mean Platelet Vol. 9.8 fl (6.2-12.0); Monocyte# 0.65 X10^3/uL; Monocyte% 7.8 % (0-10); NRBC Flagged by Analyzer 0 % (0-5); Neutrophil # 3.09 X10^3/uL (2.7-7.7); Neutrophil % 37.2 % (47-70); Platelet Count 273 K/mm3 (150-450); RBC Distribution Width CV 14.6 % (11.6-14.6); RBC Distribution Width SD 45.4 fl (35.1-43.9); Red Blood Count 4.79 M/mm3 (4.2-5.4); White Blood Count 8.3 K/mm3 (4.4-11.0)
--- NOTE | 2021-01-05 10:14 | EDS_ITS ---
HPI History of Present Illness Chief Complaint: Neuro S/Sx Informant: patient and EMS Onset/Context/Timing Onset: Today Context: Sudden Onset Timing: Continuous Current Severity: Moderate Maximum Severity: Severe Narrative Narrative: The patient is an 85-year-old female with history of paroxysmal atrial fibrillation not on anticoagulation who presents to the emergency department with strokelike symptoms. Per EMS, the patient was found with left- sided facial droop, left-sided weakness, and expressive aphasia. The patient was able to give more history as her symptoms are improving. She states that she was in her kitchen. She got acutely dizzy that she describes a sensation of motion. She tried to walk and fell. She struck her head but did not lose consciousness. She was able to call out to her but was unable to voice. Her found her and stated that she was speaking nonsensical. She also had left-sided weakness at that time. Stroke team was activated prehospital he. The patient was brought in for further evaluation. Prior similar symptoms: No Recent Illness/Hospitalization: No PFSH PFS Medical History Blepharospasm Essential hypertension GERD (gastroesophageal reflux disease) Nonrheumatic mitral (valve) prolapse Paroxysmal atrial fibrillation SVT (supraventricular tachycardia) Torticollis Ventricular ectopy Home Medications multivitamin with folic acid 1 tab PO DAILY 12/06/13 [History Last Taken 08/08/18] melatonin 10 mg PO QHS 01/15/17 [History Last Taken 08/07/18] digoxin 125 mcg (0.125 mg) tablet 125 mcg PO DAILY #90 tab 03/05/19 [Rx Last Taken Unknown] metoprolol succinate 25 mg tablet,extended release 24 hr 25 mg PO DAILY #30 tab 01/20/20 [Rx Last Taken Unknown] cholecalciferol (vitamin D3) 25 mcg (1,000 unit) capsule 4,000 unit PO DAILY cap 01/31/20 [History Last Taken Unknown] magnesium 250 mg tablet 500 mg PO DAILY tab 01/31/20 [History Last Taken Unknown] mecobalamin (vitamin B12) 1,000 mcg chewable tablet 1,000 mcg PO DAILY 01/31/20 [History Last Taken Unknown] pantoprazole 40 mg tablet,delayed release 40 mg PO DAILY 01/31/20 [History Last Taken Unknown] Allergy/AdvReac Type Severity Reaction Status Date / Time bee venom protein (honey bee) Allergy Anaphylaxis Verified 01/05/21 10:01 latex Allergy Rash Verified 01/05/21 10:01 Penicillins Allergy Rash Verified 01/05/21 10:01 Family History Father CHF (congestive heart failure) Surgical History History of knee surgery History of lumpectomy of left breast History of tonsillectomy and adenoidectomy History of total hysterectomy Social History Smoking Status: Never smoker alcohol intake: never substance use type: does not use caffeine: Yes eating out: rarely or never ROS ROS ED Constitutional Constitutional ED: Denies chills or fever(s) Eyes Eyes: Denies blurry vision or change in vision ENT ENT ED: Denies ear pain or sore throat Cardiovascular Cardiovascular: Denies chest pain or palpitations Respiratory/Chest Respiratory/Chest: Denies cough, dyspnea or dyspnea on exertion Gastrointestinal Gastrointestinal: Denies abdominal pain, nausea or vomiting Genitourinary Genitourinary ED: Denies dysuria or urinary frequency Musculoskeletal Musculoskeletal: Denies arthralgias or myalgias Integumentary Denies rash Neurologic Neurologic: Denies headache(s) or paresthesias Psychiatric Psychiatric: Denies anxiety or depression Endocrine Endocrinology: Denies polydipsia or polyuria Allergic/Immunologic Allergic/Immunologic ED: Denies urticaria EXAM Physical Exam Const Vital Signs: 01/05/21 09:45 01/05/21 09:49 01/05/21 09:56 Temperature 97.1 F L Temperature Source Temporal Pulse Rate 63 63 Respiratory Rate 16 19 H Blood Pressure 126/54 H 126/54 H Blood Pressure Mean 78 78 Pulse Ox 99 Oxygen Delivery Method Nasal Cannula Oxygen Flow Rate (L/min) 4 01/05/21 10:06 01/05/21 10:15 Temperature Temperature Source Pulse Rate 61 60 Respiratory Rate 14 12 Blood Pressure 158/115 H 158/69 H Blood Pressure Mean 129 98 Pulse Ox 98 98 Oxygen Delivery Method Nasal Cannula Nasal Cannula Oxygen Flow Rate (L/min) 2 2 Positive well nourished and well developed General Appearance ED: well developed HEENT Reports normocephalic, head/scalp atraumatic and moist mucous membranes Eyes PERRL and EOMs intact bilaterally Neck no lymphadenopathy and supple General: Negative for tenderness Chest Wall inspection of chest normal Resp normal respiratory effort and clear to auscultation bilaterally Cardio regular rate, regular rhythm and no murmurs GI normal to inspection, nondistended, normoactive bowel sounds Palpation: Negative for tender, guarding or rebound tenderness present Back/Spine no CVA tenderness Cervical Spine: Negative for cervical spine tenderness Thoracic Spine / Upper Back: Negative for thoracic spinal tenderness Extremity normal to inspection General Extremety ED: Negative for tenderness Neuro oriented x3, CN's II-XII intact bilaterally and no sensory deficits noted Neuro Narrative: No focal deficits appreciated. Sensorium / Orientation: alert Motor Exam: strength 5/5 throughout; Negative for strength abnormal Psych mental status grossly normal Skin no rashes or lesions noted, no wounds and skin turgor normal MDM MDM MDM Narrative Medical decision making narrative: Stroke team was activated on arrival. The patient's initial NIH was 5. She had a mild left-sided facial droop, mild dysarthria, and some weakness of her left arm. She was sent immediately for CT and CTA. Both of these were unremarkable. On return from CT, the patient had almost total resolution of symptoms. Her repeat NIH is 0, but she is still complaining of dizziness. She was evaluated in conjunction with [facility] neurology. As she has had rapid improving symptoms and an NIH of 0, no TPA was administered. At this point, the patient will be admitted for further stroke work-up versus TIA. Impression 1. TIA Lab Data Labs: Laboratory Results - last 24 hr 01/05/21 09:41 WBC 8.3 RBC 4.79 Hgb 12.8 Hct 40.6 MCV 84.8 MCH 26.7 L MCHC 31.5 L RDW Std Deviation 45.4 H RDW Coeff of Casi 14.6 Plt Count 273 MPV 9.8 Immature Gran % (Auto) 0.200 Neut % (Auto) 37.2 L Lymph % (Auto) 51.4 H [place] % (Auto) 7.8 Eos % (Auto) 2.6 Baso % (Auto) 0.8 Absolute Neuts (auto) 3.1 Absolute Lymphs (auto) 4.29 Nucleated RBC % 0 Radiography Diagnostic Testing: Radiology Impression Brain CT 01/05/21 09:45 IMPRESSION: Chronic involutional changes of the brain. N.B. : The above information has been verbally conveyed by Sy Freeman MD to Christopher Portillo on 01/05/2021 10:01:36 (ET). Electronically Signed: Sy Freeman MD at 10:02 EDT , Service support , ADDENDUM: 01/05/21 1009 IMPRESSION: Chronic involutional changes of the brain. N.B. : The above information has been verbally conveyed by Sy Freeman MD to Christopher Portillo on 01/05/2021 10:01:36 (ET). Electronically Signed: Sy Freeman MD at 10:02 EDT , Service support , Head/Neck CTA 01/05/21 09:45 IMPRESSION: Atherosclerotic and soft plaque formation at the origin of the left internal carotid artery causing at least 70% stenosis. This is unchanged. N.B. : The above information has been verbally conveyed by Sy Freeman MD to Christopher Portillo on 01/05/2021 10:04:56 (ET). Electronically Signed: Sy Freeman MD at 10:06 EDT , Service support , ADDENDUM: 01/05/21 1013 IMPRESSION: Atherosclerotic and soft plaque formation at the origin of the left internal carotid artery causing at least 70% stenosis. This is unchanged. N.B. : The above information has been verbally conveyed by Sy Freeman MD to Christopher Portillo on 01/05/2021 10:04:56 (ET). 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, Discussing w/Consultants, Arranging Admission or Transfer and Performing Direct Patient Care at Bedside Discharge Plan Triage Chief Complaint: Neuro S/Sx ED Provider: Christopher Portillo Dx/Rx/DC Orders Prescriptions: No Action cholecalciferol (vitamin D3) 1,000 unit capsule 25 mcg (1,000 unit) capsule 4,000 unit PO DAILY RF: 0 magnesium 250 mg tablet 500 mg PO DAILY RF: 0 pantoprazole 40 mg tablet,delayed release (DR/EC) 40 mg PO DAILY RF: 0 mecobalamin (vitamin B12) 1,000 mcg tablet,chewable 1,000 mcg PO DAILY RF: 0 multivitamin with folic acid 1 TABLET tablet 1 tab PO DAILY RF: 0 melatonin 10 MG capsule 10 mg PO QHS RF: 0 digoxin 125 mcg tablet 125 mcg PO DAILY Qty: 90 RF: 3 metoprolol succinate 25 mg tablet extended release 24 hr 25 mg PO DAILY Qty: 30 RF: 12 Primary Care Provider: Antonio Garsia
--- NOTE | 2021-01-05 10:25 | RAD_ITS ---
STUDY: X-RAY CHEST REASON FOR EXAM: Female, 85 years old. Neuro deficit, acute, stroke suspected TECHNIQUE: Single AP portable view of the chest. COMPARISON: Comparison is made with prior study dated 05/24/2020. FINDINGS: EKG electrodes are seen. Mild degree of elevation of the right hemidiaphragm. This is unchanged. The lungs are clear. There is no demonstrated pleural abnormality. Normal size heart. Normal mediastinum and ruben. Normal visualized pulmonary arteries. There is atherosclerotic calcification of the aortic arch with tortuosity. There are degenerative changes of the visualized thoracic spine. Normal visualized ribs, clavicles, and shoulders. There is no demonstrated abnormality of the visualized soft tissue structures of the upper abdomen. RAD/Chest 1 View IMPRESSION: No acute abnormality is seen. Electronically Signed: Sy Freeman MD at 10:35 EDT , Service support ,
[2021-01-05 10:29] LABS: Prothrombin Time (Protime)PT. 12.8 SECONDS (11.7-14.9)
[2021-01-05 10:30] LABS: Anion Gap 6 (5-15); BUN 22 mg/dL (7-18); BUN/Creat Ratio 18.6 RATIO (10-20); Calcium,Total 8.8 mg/dL (8.5-10.1); Chloride 106 mmol/L (98-107); Creatinine, Serum 1.18 mg/dL (0.55-1.02); EST Glomerular Filtration Rate 47 mL/min (>60); Est Glom Filt Rate - Afr Amer 56 mL/min (>60); Estimated Creatinine Clearance 35.13 ml/min; Glucose 178 mg/dL (74-106); Partial Thromboplast Time 27.4 Seconds (24.1-36.2); Potassium 3.8 mmol/L (3.5-5.1); Sodium Level 140 mmol/L (136-145)
--- NOTE | 2021-01-05 10:47 | MRI_ITS ---
HISTORY: TIA EXAMINATION: MR Brain W/O Contrast TECHNIQUE: Multiplanar and multisequence MR images of the brain were obtained without gadolinium. IV Contrast dosage and agent: COMPARISON: Noncontrast head CT same date FINDINGS: BRAIN PARENCHYMA: No MRI evidence of hemorrhage. No evidence of acute infarct. Central and cortical involutional changes are noted. There is increased T2 and FLAIR signal abnormality in the periventricular white matter. No intracranial mass or mass effect. There is preservation of the rush/white matter interface. Normal sella turcica, pituitary gland, infundibular stalk, optic chiasm and hypothalamus. The internal auditory canals are patent. Posterior fossa structures are unremarkable. CSF SPACES: Appropriate for age. No hydrocephalus. Basal cisterns are patent. VASCULAR SYSTEM: Normal flow voids in the major intracranial circulation. CALVARIUM, SKULL BASE, PARANASAL SINUSES AND MASTOID AIR CELLS: Clear. No discrete lytic or blastic abnormalities. ORBITS: Both globes, extraocular muscles, optic nerves and retrobulbar fat appear unremarkable. MRI/Brain without Contrast IMPRESSION: Chronic involutional and white matter changes. No acute intracranial process. at 1612 Reported and signed by: Abdias Taylor MD Electronically Signed: Abdias Taylor MD at 16:11 EDT Tel , Service support ,
--- NOTE | 2021-01-05 10:53 | PCM.HP.STD ---
[facility] - General General Date of Admission: 01/05/21 Date of Service: 01/05/21 Chief Complaint: Left-sided weakness, facial droop, speech difficulty [facility] Narrative JORDY ERAZO, is a 85 F with past medical history significant for paroxysmal atrial fibrillation not on systemic anticoagulation apparently as a result of epistaxis who presented with left-sided weakness difficulty with speech and left-sided facial droop. Patient's found her on the floor on the morning of her presentation. Patient had difficulty expressing himself and as stated above was found to have weakness involving the left side as well as the left face. The EMS squad was called patient brought to the emergency department. Patient initial NIH was reported to be 5. Underwent stat CT and by the time patient got back to the ER her symptoms had all resolved and NIH was back to 0. An assessment of transient ischemic attack made admitted to a monitored bed for further management [facility] Medical History (Updated 01/05/21 @ 11:[address] Toñito Collazo MD) Blepharospasm COVID-19 Essential hypertension GERD (gastroesophageal reflux disease) Nonrheumatic mitral (valve) prolapse Paroxysmal atrial fibrillation Pneumonia SVT (supraventricular tachycardia) Torticollis UTI (urinary tract infection) Ventricular ectopy Home Medications multivitamin with folic acid 1 tab PO DAILY 12/06/13 [History Last Taken 08/08/18] melatonin 10 mg PO QHS 01/15/17 [History Last Taken 08/07/18] digoxin 125 mcg (0.125 mg) tablet 125 mcg PO DAILY #90 tab 03/05/19 [Rx Last Taken Unknown] metoprolol succinate 25 mg tablet,extended release 24 hr 25 mg PO DAILY #30 tab 01/20/20 [Rx Last Taken Unknown] cholecalciferol (vitamin D3) 25 mcg (1,000 unit) capsule 4,000 unit PO DAILY cap 01/31/20 [History Last Taken Unknown] magnesium 250 mg tablet 500 mg PO DAILY tab 01/31/20 [History Last Taken Unknown] mecobalamin (vitamin B12) 1,000 mcg chewable tablet 1,000 mcg PO DAILY 01/31/20 [History Last Taken Unknown] pantoprazole 40 mg tablet,delayed release 40 mg PO DAILY 01/31/20 [History Last Taken Unknown] Allergy/AdvReac Type Severity Reaction Status Date / Time bee venom protein (honey bee) Allergy Anaphylaxis Verified 01/05/21 10:01 latex Allergy Rash Verified 01/05/21 10:01 Penicillins Allergy Rash Verified 01/05/21 10:01 Family History Father CHF (congestive heart failure) Surgical History History of knee surgery History of lumpectomy of left breast History of tonsillectomy and adenoidectomy History of total hysterectomy Social History Smoking Status: Never smoker alcohol intake: never substance use type: does not use caffeine: Yes eating out: rarely or never ROS ROS Narrative GENERAL: denies fever, chills, HEENT: denies headache, sinus congestion, RESPIRATORY: denies cough, sputum production, CARDIAC: denies chest pain, palpitations, orthopnea, GASTROINTESTINAL: denies abdominal pain, nausea, GENITOURINARY: denies dysuria, urgency, frequency, EXTREMITY: denies swelling MUSCULOSKELETAL: denies current joint pain or tenderness NEUROLOGIC: Left-sided weakness, left facial droop and expressive aphasia HEMATOLOGIC: denies easy bruising and/or hemorrhage INTEGUMENT: denies rashes PSYCHIATRIC: denies suicidal or homicidal ideation Vital Signs Vital Signs Vital Signs: 01/05/21 09:45 01/05/21 09:49 01/05/21 09:56 Temperature 97.1 F L Temperature Source Temporal Pulse Rate 63 63 Respiratory Rate 16 19 H Blood Pressure 126/54 H 126/54 H Blood Pressure Mean 78 78 Pulse Ox 99 Oxygen Delivery Method Nasal Cannula Oxygen Flow Rate (L/min) 4 01/05/21 10:06 01/05/21 10:15 01/05/21 10:30 Temperature Temperature Source Pulse Rate 61 60 65 Respiratory Rate 14 12 23 H Blood Pressure 158/115 H 158/69 H 150/71 H Blood Pressure Mean 129 98 97 Pulse Ox 98 98 97 Oxygen Delivery Method Nasal Cannula Nasal Cannula Room Air Oxygen Flow Rate (L/min) 2 2 01/05/21 10:44 Temperature 98 F Temperature Source Temporal Pulse Rate 65 Respiratory Rate 23 H Blood Pressure 150/71 H Blood Pressure Mean 97 Pulse Ox 97 Oxygen Delivery Method Room Air Oxygen Flow Rate (L/min) Weight Weight: 79.8 kg Body Mass Index (BMI) 27.5 Physical Exam Narrative GENERAL: cooperative HEENT: Atraumatic; EYES; Anicteric, Normal Conjunctiva NECK; supple, normal thyroid, RESPIRATORY: Diminished to auscultation CARDIOVASCULAR: Regular S1 S2, GI: soft, normoactive bowel sounds, : No Renal angle tenderness; EXTREMITIES: No edema, no clubbing, MUSCULOSKELETAL: no muscle waisting NEURO: Awake; no lateralizing signs. SKIN: No Rash PSYCH; Flat affect Results Lab / Micro Data Result Diagrams: 01/05/21 09:41 01/05/21 09:41 Labs: Laboratory Results - last 24 hr 01/05/21 01/05/21 01/05/21 09:41 09:41 09:41 WBC 8.3 RBC 4.79 Hgb 12.8 Hct 40.6 MCV 84.8 MCH 26.7 L MCHC 31.5 L RDW Std Deviation 45.4 H RDW Coeff of Casi 14.6 Plt Count 273 MPV 9.8 Immature Gran % (Auto) 0.200 Neut % (Auto) 37.2 L Lymph % (Auto) 51.4 H [place] % (Auto) 7.8 Eos % (Auto) 2.6 Baso % (Auto) 0.8 Absolute Neuts (auto) 3.1 Absolute Lymphs (auto) 4.29 Nucleated RBC % 0 PT 12.8 INR 1.0 APTT 27.4 Sodium 140 Potassium 3.8 Chloride 106 Carbon Dioxide 28.0 Anion Gap 6 BUN 22 H Creatinine 1.18 H Estim Creat Clear Calc 35.13 Est GFR (MDRD) Af Amer 56 L Est GFR (MDRD) Non-Af 47 L BUN/Creatinine Ratio 18.6 Glucose 178 H Calcium 8.8 Troponin I < 0.[address] 01/05/21 09:45 IMPRESSION: Chronic involutional changes of the brain. N.B. : The above information has been verbally conveyed by Sy Freeman MD to Christopher Portillo on 01/05/2021 10:01:36 (ET). Electronically Signed: Sy Freeman MD at 10:02 EDT , Service support , ADDENDUM: 01/05/21 1009 IMPRESSION: Chronic involutional changes of the brain. N.B. : The above information has been verbally conveyed by Sy Freeman MD to Christopher Portillo on 01/05/2021 10:01:36 (ET). Electronically Signed: Sy Freeman MD at 10:02 EDT , Service support , Head/Neck CTA 01/05/21 09:45 IMPRESSION: Atherosclerotic and soft plaque formation at the origin of the left internal carotid artery causing at least 70% stenosis. This is unchanged. N.B. : The above information has been verbally conveyed by Sy Freeman MD to Christopher Portillo on 01/05/2021 10:04:56 (ET). Electronically Signed: Sy Freeman MD at 10:06 EDT , Service support , ADDENDUM: 01/05/21 1013 IMPRESSION: Atherosclerotic and soft plaque formation at the origin of the left internal carotid artery causing at least 70% stenosis. This is unchanged. N.B. : The above information has been verbally conveyed by Sy Freeman MD to Christopher Portillo on 01/05/2021 10:04:56 (ET). Electronically Signed: Sy Freeman MD at 10:06 EDT , Service support , Chest X-Ray 01/05/21 10:25 IMPRESSION: No acute abnormality is seen. Electronically Signed: Sy Freeman MD at 10:35 EDT , Service support , Assessment & Plan Assessment/Plan (1) TIA (transient ischemic attack): (2) Essential hypertension: (3) Nonrheumatic mitral (valve) prolapse: (4) GERD (gastroesophageal reflux disease): (5) Paroxysmal atrial fibrillation: (6) Ventricular ectopy: PLAN: Is an 85-year-old lady who presented with transient weakness involving the left side, left face and expressive aphasia Transient ischemic attack ?Patient presented with left-sided weakness, left facial droop and expressive aphasia. Symptoms did resolve while patient was in the emergency department. Admitted to a monitored bed for subsequent management. As part of her evaluation and MRI of the head without contrast ordered. Also ordered a 2D echo. Admitted to telemetry for continuous monitoring. Keep for NIH ordered. And also ordered lipid panel 2. Paroxysmal A. fib ?Rate controlled. Patient was previously on aspirin for secondary prevention which was discontinued according to the patient by her primary care physician because of epistaxis. Did inform patient to have a trial of Eliquis 2.5 mg twice daily and if the epistaxis recurs then patient may not be a candidate for systemic anticoagulation 3. Hypertension - Blood pressure controlled, home medications continued with dose adjustment as needed 4. GERD ?On PPI 5. History of ventricular ectopics ?Patient is on beta-blockers 6. DVT prophylaxis ?Patient started on Eliquis Advance planning; did discuss with the patient and family (patient's ) regarding advanced directives as well as CODE STATUS. Did explain the various scenarios involved ( FULL CODE, DNR CCA, DNR CCA with no intubation, and DNR CC and what each meant) patient elected full code with CPR and intubation if indicated. Order was placed. Time spent on discussion 18 minutes. Charges/Coding Visit Charges OBSV E&M: 68813 Initial observation care L3 Procedures Hospitalists Procedures: 65207 Advncd Care Plan 30 Min
[2021-01-05 11:21] LABS: Cholesterol 174 mg/dL (200); High Density Lipoprotein 58 mg/dL; Triglycerides 119 mg/dL; Very Low Density Lipoprotein 24 mg/dL (5-40)
--- NOTE | 2021-01-05 12:04 | ECHOL_ITS ---
Reason For Study: TIA/CVA Procedure This was a limited 2D transthoracic echocardiogram. Limited views were obtained. Exam performed portable in patient room. Left Ventricle Normal LV size. Left ventricular systolic function is normal. The estimated ejection fraction is 65 %. No regional wall motion abnormalities noted. Right Ventricle Normal RV size. Normal systolic function. Atria The left atrium is moderately enlarged. Normal right atrium. Bubble contrast study negative for right to left interatrial shunt. Mitral Valve Normal mitral valve. Tricuspid Valve Normal tricuspid valve. Trivial tricuspid valve insufficiency. Aortic Valve The aortic valve is not well visualized. Pulmonic Valve The pulmonic valve is not well visualized. Pericardium/Pleural No pericardial effusion. Medication Performed a rapid injection of agitated mix of 9 cc saline and 1cc air to assess for atrial septal defect. MMode/2D Measurements & Calculations LVIDd: 5.0 cm IVSd: 0.98 cm LVAd ap4: 28.8 cm2 LVIDs: 3.3 cm LVPWd: 0.91 cm LVLd ap4: 7.4 cm FS: 34.7 % EDV(MOD-sp4): 92.6 ml EDV(sp4-el): 94.8 ml LVAs ap4: 15.3 cm2 LVLs ap4: 6.0 cm ESV(MOD-sp4): 34.2 ml ESV(sp4-el): 32.8 ml EF(MOD-sp4): 63.1 % EF(sp4-el): 65.4 % SV(MOD-sp4): 58.4 ml SV(sp4-el): 62.0 ml Doppler Measurements & Calculations TR max susana: 255.2 cm/sec TR max P.0 mmHg ECHO/Echo, Limited Study Interpretation Summary Limited views were obtained. Left ventricular systolic function is normal. The estimated ejection fraction is 65 %. The left atrium is moderately enlarged. Bubble contrast study negative for right to left interatrial shunt. Ordering Physician: Toñito Collazo Referring Physician: WEI JIMENEZ Performed By: Susie Del Rio RDCS
[2021-01-05] MEDS: APIXABAN 2.5 MG TABLET PO ×2 (13:14→21:04)
[2021-01-05] MEDS: 0.9% Normal Saline 1,000 ML 100 ML IV (16:00)
[2021-01-05] MEDS: Acetaminophen 325 MG Tablet 650 MG PO (17:24)
[2021-01-05] MEDS: Atorvastatin Calcium 80 MG Tablet PO (21:04)
[2021-01-06] MEDS: 0.9% Normal Saline 1,000 ML 100 ML IV (01:08)
[2021-01-06 02:58] VITALS: PULSE 59
[2021-01-06 03:10] VITALS: BP 160/68; PULSE 67; RESP 18; TEMP 36.8; O2SAT 95
[2021-01-06 06:54] LABS: Absolute Lymphocyte Count 2.88 X10^3/uL (0.83-4.51); Absolute Neutrophil Count 3.7 X10^3/uL (2.0-7.7); Basophil# 0.07 X10^3/uL; Basophil% 0.9 % (0-1); Eosinophil# 0.23 X10^3/uL; Hematocrit 39.6 % (37-47); Hemoglobin 12.1 g/dL (12.0-15.0); Lymphocyte # 2.88 X10^3/ul (0.83-4.51); Lymphocyte % 37.4 % (19-41); Mean Corp Hgb Conc 30.6 g/dL (32-36); Mean Corpuscular Hgb 26.5 pg (27.0-32.0); Mean Corpuscular Volume 86.8 fL (81-99); Mean Platelet Vol. 10.1 fl (6.2-12.0); Monocyte# 0.81 X10^3/uL; Monocyte% 10.5 % (0-10); NRBC Flagged by Analyzer 0 % (0-5); Neutrophil % 48.1 % (47-70); Platelet Count 230 K/mm3 (150-450); RBC Distribution Width CV 14.7 % (11.6-14.6); RBC Distribution Width SD 47.6 fl (35.1-43.9); Red Blood Count 4.56 M/mm3 (4.2-5.4); White Blood Count 7.7 K/mm3 (4.4-11.0)
[2021-01-06 07:19] VITALS: O2SAT 93
[2021-01-06 07:22] LABS: ALB/GLOB Ratio 1.1 RATIO (0.9-2.4); AST(SGOT) 16 U/L (15-37); Alanine Aminotransfer ALT/SGPT 19 U/L (13-56); Albumin, Serum 3.1 g/dL (3.2-5.0); Alkaline Phosphatase 82 U/L (45-117); Anion Gap 5 (5-15); BUN 18 mg/dL (7-18); BUN/Creat Ratio 19.8 RATIO (10-20); Calcium,Total 8.5 mg/dL (8.5-10.1); Chloride 111 mmol/L (98-107); Cholesterol 163 mg/dL (200); Creatinine, Serum 0.91 mg/dL (0.55-1.02); EST Glomerular Filtration Rate 63 mL/min (>60); Est Glom Filt Rate - Afr Amer 76 mL/min (>60); Estimated Creatinine Clearance 45.55 ml/min; Globulin 2.8 g/dL (2.2-4.2); Glucose 93 mg/dL (74-106); High Density Lipoprotein 45 mg/dL; Magnesium 1.9 mg/dL (1.6-2.6); Phosphorus 3.1 mg/dL (2.5-4.9); Potassium 3.9 mmol/L (3.5-5.1); Protein, Total 5.9 g/dL (6.4-8.2); Sodium Level 143 mmol/L (136-145); Triglycerides 125 mg/dL; Very Low Density Lipoprotein 25 mg/dL (5-40)
[2021-01-06 07:24] VITALS: PULSE 57
[2021-01-06 09:30] VITALS: BP 145/48; PULSE 68; RESP 18; TEMP 36.6; O2SAT 95
--- NOTE | 2021-01-06 09:50 | DCINST_ITS ---
Discharge Instructions Diet Discharge Diet: Low fat / Low cholesterol Activity Discharge Activity: Return to Normal Activity Dressing / Incision Call your doctor if you observe: Numbness or Tingling, Shortness of breath, Dizziness and Chest pain Follow Up Care Test Results: Test results from this visit will be discussed in further detail at your follow-up appointment, if applicable. Discharge Plan Admission Admit Date/Time: 01/05/21 10:40 Primary Reason for Your Visit: TIA Attending Provider: Toñito Collazo Primary Care Provider: Antonio Garsia Discharge Orders/Prescriptions Prescriptions: New Eliquis 2.5 mg Tablet 2.5 mg PO BID Qty: 60 RF: 0 aspirin 81 mg tablet,delayed release (DR/EC) 81 mg PO DAILY Qty: 30 RF: 0 atorvastatin 10 mg tablet 10 mg PO QHS Qty: 30 RF: 0 Continued cholecalciferol (vitamin D3) 1,000 unit capsule 25 mcg (1,000 unit) capsule 4,000 unit PO DAILY RF: 0 magnesium 250 mg tablet 500 mg PO DAILY RF: 0 pantoprazole 40 mg tablet,delayed release (DR/EC) 40 mg PO DAILY RF: 0 mecobalamin (vitamin B12) 1,000 mcg tablet,chewable 1,000 mcg PO DAILY RF: 0 melatonin 10 MG capsule 10 mg PO QHS RF: 0 multivitamin Tablet 1 tab PO DAILY RF: 0 digoxin 125 mcg tablet 125 mcg PO DAILY Qty: 90 RF: 3 metoprolol succinate 25 mg tablet extended release 24 hr 25 mg PO DAILY Qty: 30 RF: 12 Referrals / Follow Up: Antonio Garsia DO [Primary Care Provider] - In 1 Week Aftab Patton NP, [employer] [Nurse Practitioner] - See Referral Note (As scheduled) Disposition Disposition (needs filled in before D/C Order can be placed): Home, self care
[2021-01-06] MEDS: APIXABAN 2.5 MG TABLET PO (09:54)
[2021-01-06] MEDS: Aspirin 81 MG TAB.CHEW PO (09:54)
[2021-01-06 10:18] VITALS: PULSE 68
[2021-01-06] MEDS: Digoxin 125 MCG Tablet PO (10:18)
[2021-01-06] MEDS: Pantoprazole Sodium 40 MG Tablet PO (10:18)
[2021-01-06] MEDS: Metoprolol(XL)Succ 25 MG Tablet PO (10:18)
--- NOTE | 2021-01-06 10:33 | PCM.DC.SUM ---
Documented by User: Diana Khan NP, CENTER DIRECTOR LEAD TEACHER-C 01/06/21 10:50 Providers Date of Admission: 01/05/21 Date of Discharge: 01/06/21 Primary Care Physician: Dr. Wei Garsia DO Reason For Visit: TIA Diagnosis Discharge Diagnosis (1) TIA (transient ischemic attack): Status: Acute Code(s): G45.9 - Transient cerebral ischemic attack, unspecified (2) Essential hypertension: Status: Chronic Code(s): I10 - Essential (primary) hypertension (3) Nonrheumatic mitral (valve) prolapse: Status: Chronic Code(s): I34.1 - Nonrheumatic mitral (valve) prolapse (4) GERD (gastroesophageal reflux disease): Status: Chronic Code(s): K21.9 - Gastro-esophageal reflux disease without esophagitis (5) Paroxysmal atrial fibrillation: Status: Chronic Code(s): I48.0 - Paroxysmal atrial fibrillation (6) Ventricular ectopy: Status: Chronic Code(s): I49.3 - Ventricular premature depolarization Medications at Discharge Home Medications melatonin 10 mg PO QHS 01/15/17 digoxin 125 mcg (0.125 mg) tablet 125 mcg PO DAILY #90 tab 03/05/19 metoprolol succinate 25 mg tablet,extended release 24 hr 25 mg PO DAILY #30 tab 01/20/20 cholecalciferol (vitamin D3) 25 mcg (1,000 unit) capsule 4,000 unit PO DAILY cap 01/31/20 magnesium 250 mg tablet 500 mg PO DAILY tab 01/31/20 mecobalamin (vitamin B12) 1,000 mcg chewable tablet 1,000 mcg PO DAILY 01/31/20 pantoprazole 40 mg tablet,delayed release 40 mg PO DAILY 01/31/20 apixaban [Eliquis] 2.5 mg PO BID #60 tab 01/06/21 aspirin 81 mg PO DAILY #30 tab 01/06/21 atorvastatin 10 mg PO QHS #30 tab 01/06/21 multivitamin 1 tab PO DAILY 01/06/21 Hospital Course Operations None Procedures 2-D Echocardiogram Summary of Care Provided Minutes Spent on Discharge: 35 Hospital Course: Patient is an 85-year-old female admitted 01/05/2021 due to transient left-sided weakness, facial droop and speech difficulty. 1. TIA, CVA ruled out-MRI without acute stroke. CTA of head and neck shows left internal carotid artery at least 70% stenosis, unchanged from prior. Echocardiogram demonstrates an EF of 65%. Continue aspirin, statin, Eliquis. Patient agreeable to low-dose statin, discharged on atorvastatin 10 mg nightly. Follow up with PCP in 1 week. Will refer to vascular for carotid follow up. Carotid ultrasound ordered at [place] as outpatient. 2. Paroxysmal atrial fibrillation-patient has a history of epistaxis with aspirin, agreeable to Eliquis 2.5 twice a day for stroke prevention. Follows with Dr. Jordan. Follow up with cardiology as scheduled. 3. Hypertension-stable, continue home medication regimen. 4. 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 5. GERD-on PPI. Patient seen and examined prior to discharge. Physical assessment as noted below. Patient is stable for discharge with follow up recommendations as noted above. This patient was seen by NATALIE Champion under the supervision of Dr. Collazo. Physical Exam Const alert, oriented x3 and no apparent distress Orientation / Consciousness: awake, oriented to person, oriented to place and oriented to time HEENT normocephalic and moist oral mucous membranes Eyes PERRL, EOMs intact bilaterally and conjunctivae normal Neck no lymphadenopathy Resp normal respiratory effort and clear to auscultation bilaterally Cardio regular rate, regular rhythm and no murmurs Peripheral Pulses: pulses 2+ throughout GI normal to inspection, nondistended, normoactive bowel sounds, non-tender and non-distended Extremity normal to inspection Skin no rashes or lesions noted Lesions: no lesions Rashes: no rashes Trauma: no lacerations or abrasions Neuro CN's II-XII intact bilaterally, no focal motor deficits, no sensory deficits noted and deep tendon reflexes 2+ bilaterally Psych mental status grossly normal and affect normal ABG / Lab / Microbiology Data Result Diagrams: 01/06/21 06:15 01/06/21 06:15 Laboratory: Laboratory Results - last 24 hr 01/05/21 01/05/21 01/06/21 09:41 12:12 06:15 WBC 7.7 RBC 4.56 Hgb 12.1 Hct 39.6 MCV 86.8 MCH 26.5 L MCHC 30.6 L RDW Std Deviation 47.6 H RDW Coeff of Casi 14.7 H Plt Count 230 MPV 10.1 Immature Gran % (Auto) 0.100 Neut % (Auto) 48.1 Lymph % (Auto) 37.4 [place] % (Auto) 10.5 H Eos % (Auto) 3.0 Baso % (Auto) 0.9 Absolute Neuts (auto) 3.7 Absolute Lymphs (auto) 2.88 Nucleated RBC % 0 Sodium Potassium Chloride Carbon Dioxide Anion Gap BUN Creatinine Estim Creat Clear Calc Est GFR (MDRD) Af Amer Est GFR (MDRD) Non-Af BUN/Creatinine Ratio Glucose Calcium Phosphorus Magnesium Total Bilirubin AST ALT Alkaline Phosphatase Troponin I < 0.015 Total Protein Albumin Globulin Albumin/Globulin Ratio Triglycerides 119 Cholesterol 174 LDL Cholesterol 92 VLDL Cholesterol 24 HDL Cholesterol 58 01/06/21 06:15 WBC RBC Hgb Hct MCV MCH MCHC RDW Std Deviation RDW Coeff of Casi Plt Count MPV Immature Gran % (Auto) Neut % (Auto) Lymph % (Auto) [place] % (Auto) Eos % (Auto) Baso % (Auto) Absolute Neuts (auto) Absolute Lymphs (auto) Nucleated RBC % Sodium 143 Potassium 3.9 Chloride 111 H Carbon Dioxide 27.0 Anion Gap 5 BUN 18 Creatinine 0.91 Estim Creat Clear Calc 45.55 Est GFR (MDRD) Af Amer 76 Est GFR (MDRD) Non-Af 63 BUN/Creatinine Ratio 19.8 Glucose 93 Calcium 8.5 Phosphorus 3.1 Magnesium 1.9 Total Bilirubin 0.40 AST 16 ALT 19 Alkaline Phosphatase 82 Troponin I Total Protein 5.9 L Albumin 3.1 L Globulin 2.8 Albumin/Globulin Ratio 1.1 Triglycerides 125 Cholesterol 163 LDL Cholesterol 93 VLDL Cholesterol 25 HDL Cholesterol 45 Radiography Diagnostic Testing: Radiology Impression Chest X-Ray 01/05/21 10:25 IMPRESSION: No acute abnormality is seen. Electronically Signed: Sy Freeman MD at 10:35 EDT , Service support , Brain MRI 01/05/21 10:47 IMPRESSION: Chronic involutional and white matter changes. No acute intracranial process. at 1612 Reported and signed by: Abdias Taylor MD Electronically Signed: Abdias Taylor MD at 16:11 EDT Tel , Service support , Echocardiogram 01/05/21 12:04 Interpretation Summary Limited views were obtained. Left ventricular systolic function is normal. The estimated ejection fraction is 65 %. The left atrium is moderately enlarged. Bubble contrast study negative for right to left interatrial shunt. Ordering Physician: Toñito Collazo Referring Physician: WEI GARSIA Performed By: Susie Del Rio RDCS D/C Instructions Discharge Diet: Low fat / Low cholesterol Call your doctor if you observe: Numbness or Tingling, Shortness of breath, Dizziness and Chest pain Meaningful Use Info Meaningful Use Diagnoses (Choose all that apply): None applicable Discharge Plan Admission Admit Date/Time: 01/05/21 10:40 Primary Reason for Your Visit: TIA Attending Provider: Toñito Collazo Primary Care Provider: Wei Garsia Instructions Additional Instructions / Restrictions: Patient Problems: Altered Health Status related to Hospitalization Patient Goals: *Optimal Level of Health *Keep Appointments *Medication Compliance *Remain Safe Discharge Orders/Prescriptions Prescriptions: New Eliquis 2.5 mg Tablet 2.5 mg PO BID Qty: 60 RF: 0 aspirin 81 mg tablet,delayed release (DR/EC) 81 mg PO DAILY Qty: 30 RF: 0 atorvastatin 10 mg tablet 10 mg PO QHS Qty: 30 RF: 0 Continued cholecalciferol (vitamin D3) 1,000 unit capsule 25 mcg (1,000 unit) capsule 4,000 unit PO DAILY RF: 0 magnesium 250 mg tablet 500 mg PO DAILY RF: 0 pantoprazole 40 mg tablet,delayed release (DR/EC) 40 mg PO DAILY RF: 0 mecobalamin (vitamin B12) 1,000 mcg tablet,chewable 1,000 mcg PO DAILY RF: 0 melatonin 10 MG capsule 10 mg PO QHS RF: 0 multivitamin Tablet 1 tab PO DAILY RF: 0 digoxin 125 mcg tablet 125 mcg PO DAILY Qty: 90 RF: 3 metoprolol succinate 25 mg tablet extended release 24 hr 25 mg PO DAILY Qty: 30 RF: 12 Other Ambulatory Orders: Carotid Duplex Ultrasound (Routine) Facility: [facility] - Location: [facility] Ordered By: Diana Khan NP Referrals / Follow Up: Wei Garsia DO [Primary Care Provider] - In 1 Week Alton Nguyen MD [STAFF PHYSICIAN] - See Referral Note (Call for follow up following carotid ultrasound. ) Aftab Patton NP, CENTER DIRECTOR LEAD TEACHER-C [Nurse Practitioner] - See Referral Note (As scheduled) Disposition Disposition (needs filled in before D/C Order can be placed): Home, self care Documented by User: Dr. Toñito Collazo MD 01/06/21 12:42 Providers Date of Admission: 01/05/21 Reason For Visit: TIA Medications at Discharge Home Medications melatonin 10 mg PO QHS 01/15/17 digoxin 125 mcg (0.125 mg) tablet 125 mcg PO DAILY #90 tab 03/05/19 metoprolol succinate 25 mg tablet,extended release 24 hr 25 mg PO DAILY #30 tab 01/20/20 cholecalciferol (vitamin D3) 25 mcg (1,000 unit) capsule 4,000 unit PO DAILY cap 01/31/20 magnesium 250 mg tablet 500 mg PO DAILY tab 01/31/20 mecobalamin (vitamin B12) 1,000 mcg chewable tablet 1,000 mcg PO DAILY 01/31/20 pantoprazole 40 mg tablet,delayed release 40 mg PO DAILY 01/31/20 apixaban [Eliquis] 2.5 mg PO BID #60 tab 01/06/21 aspirin 81 mg PO DAILY #30 tab 01/06/21 atorvastatin 10 mg PO QHS #30 tab 01/06/21 multivitamin 1 tab PO DAILY 01/06/21 Hospital Course Operations None Summary of Care Provided Hospital Course: This patient was seen in conjunction with NATALIE Champion . I have independently interviewed and examined the patient and reviewed pertinent historical, laboratory, and other data. Please refer to NATALIE Champion note for details of this patient's presentation, findings, and recommendations. I have reviewed NATALIE Champion note and concur with documented findings. In brief, patient is a Is an 85-year-old lady who presented with transient weakness involving the left side, left face and expressive aphasia. Admitted to a monitored bed for subsequent work-up 1. Transient ischemic attack 2. Paroxysmal A. fib 3. Essential potential 4. GERD 5. History of ventricular ectopics Hospital course: As documented above ABG / Lab / Microbiology Data Result Diagrams: 01/06/21 06:15 01/06/21 06:15 Discharge Plan Admission Admit Date/Time: 01/05/21 10:40 Primary Reason for Your Visit: TIA Attending Provider: Toñito Collazo Primary Care Provider: Wei Garsia Instructions Additional Instructions / Restrictions: Patient Problems: Altered Health Status related to Hospitalization Patient Goals: *Optimal Level of Health *Keep Appointments *Medication Compliance *Remain Safe Discharge Orders/Prescriptions Prescriptions: New Eliquis 2.5 mg Tablet 2.5 mg PO BID Qty: 60 RF: 0 aspirin 81 mg tablet,delayed release (DR/EC) 81 mg PO DAILY Qty: 30 RF: 0 atorvastatin 10 mg tablet 10 mg PO QHS Qty: 30 RF: 0 Continued cholecalciferol (vitamin D3) 1,000 unit capsule 25 mcg (1,000 unit) capsule 4,000 unit PO DAILY RF: 0 magnesium 250 mg tablet 500 mg PO DAILY RF: 0 pantoprazole 40 mg tablet,delayed release (DR/EC) 40 mg PO DAILY RF: 0 mecobalamin (vitamin B12) 1,000 mcg tablet,chewable 1,000 mcg PO DAILY RF: 0 melatonin 10 MG capsule 10 mg PO QHS RF: 0 multivitamin Tablet 1 tab PO DAILY RF: 0 digoxin 125 mcg tablet 125 mcg PO DAILY Qty: 90 RF: 3 metoprolol succinate 25 mg tablet extended release 24 hr 25 mg PO DAILY Qty: 30 RF: 12 Other Ambulatory Orders: Carotid Duplex Ultrasound (Routine) Facility: [facility] - Location: [facility] Ordered By: Diana Khan NP Referrals / Follow Up: Wei Garsia DO [Primary Care Provider] - In 1 Week Alton Nguyen MD [STAFF PHYSICIAN] - See Referral Note (Call for follow up following carotid ultrasound. ) Aftab Patton CENTER DIRECTOR LEAD TEACHER, CENTER DIRECTOR LEAD TEACHER-C [Nurse Practitioner] - See Referral Note (As scheduled) Disposition Disposition (needs filled in before D/C Order can be placed): Home, self care Charges/Coding Visit Charges OBSV E&M: 09809 Observation care discharge Hospital Course Operations None
--- NOTE | 2021-01-06 10:55 | CASEMGMT ---
Pt to be sent home on Eliquis and med e-scribed to [facility] retail pharmacy. Call to Licha in pharmacy and she states Eliquis 30 day free trial card applied but also states pt will have a co-pay of $129 at some point then co-pay will go to $35. Pt updated on all and voices understanding. Pt declines need for any further therapy. Pt voices no further questions/concerns/needs. Pt ready for discharge. Pharmacy is aware that pt will like meds to be delivered to room, voice understanding. Luke LANDON CM
== END 2021-01-06 09:55 | disposition home or self-care (01) ==
LOC: ED 10:28 → PCU 01-06 09:55
PROVIDERS: Admitting Provider Internal Medicine; Emergency Provider Emergency Medicine; PCP Family Medicine; Visit Provider Internal Medicine
DX: G45.9 Transient cerebral ischemic attack, unspecified (principal); I10 Essential (primary) hypertension; I48.0 Paroxysmal atrial fibrillation; R29.810 Facial weakness; R29.705 NIHSS score 5; R53.1 Weakness; R47.01 Aphasia; K21.9 Gastro-esophageal reflux disease without esophagitis; I49.3 Ventricular premature depolarization; Z79.899 Other long term (current) drug therapy
CPT/HCPCS: 36415; 70450; 70496; 70498; 70551; 71045; 80048; 80053; 80061; 83735; 84100; 84484; 85025; 85610; 85730; 93005; 93308; 94762; 96360; 96361; 97162; 97166; 97802; 99218; 99285; J7030; Q9967; A4216; G0378

== ENCOUNTER → 2021-01-16 10:15 | Outpatient (CLI) | payer MEDICARE, OTHER, SELFPAY ==
[2021-01-05 11:30] VITALS: BMI 26.8
== END ==
PROVIDERS: PCP Family Medicine; Referring Provider Family Medicine; Visit Provider Family Medicine
DX: I48.0 Paroxysmal atrial fibrillation (principal); R00.2 Palpitations
CPT/HCPCS: 93225; 93226

== ENCOUNTER → 2021-01-18 10:51 | Outpatient (CLI) | payer MEDICARE, OTHER, SELFPAY ==
[2021-01-05 11:30] VITALS: BMI 26.8
--- NOTE | 2021-01-18 10:57 | CDU_ITS ---
Reason For Study: carotid atherosclerosis Rt. Velocities/BP Lt. Velocities/BP Prox CCA 69.5/8.0 cm/sec. Prox CCA 56.3/9.1 cm/sec. Mid CCA 50.9/10.2 cm/sec. Mid CCA 54.1/10.2 cm/sec. Dist CCA 52.0/10.2 cm/sec. Dist CCA 51.9/9.1 cm/sec. Prox ICA 37.4/10.9 cm/sec. Prox ICA 71.7/16.8 cm/sec. Mid ICA 78.7/23.0 cm/sec. Mid ICA 89.3/15.7 cm/sec. Dist ICA 99.5/18.2 cm/sec. Dist ICA 85.0/13.9 cm/sec. Rt. ICA/CCA = 2.0. Lt. ICA/CCA = 1.6. Prox ECA 56.6/4.7 cm/sec. Prox ECA 97.0/6.9 cm/sec. Rt. Vert. 56.4/8.0 cm/sec. Lt. Vert. 99.2/13.3 cm/sec. Right Extracranial There is intimal thickening but no significant atherosclerotic plaque noted in the right common carotid artery. There is heterogeneous, irregular atherosclerotic plaque noted in the right internal carotid artery. The right internal carotid artery is very tortuous. There is homogeneous, smooth atherosclerotic plaque noted in the right external carotid artery. Antegrade flow is noted in the right vertebral artery. Left Extracranial There is intimal thickening but no significant atherosclerotic plaque noted in the left common carotid artery. There is heterogeneous, irregular atherosclerotic plaque noted in the left internal carotid artery. The left internal carotid artery is very tortuous. There is intimal thickening but no significant atherosclerotic plaque noted in the left external carotid artery. Antegrade flow is noted in the left vertebral artery. Procedure Carotid Duplex 13953. This is a Carotid Duplex examination using B-mode, color flow and specral Doppler. The exam was diagnostic. Exam performed in department. VL/Carotid Duplex Ultrasound Interpretation Summary Irregular heterogenous plaque at the proximal right internal carotid artery wit h less than 50% stenosis Less than 50% stenosis right external carotid artery Irregular plaque at the proximal left internal carotid artery with less than 50 % stenosis Less than 50% stenosis left external carotid artery Special notation made of tortuous bilateral internal carotid arteries Patent and antegrade vertebrals bilaterally Ordering Physician: Antonio Garsia Performed By: Derek Guerra RVT
== END ==
PROVIDERS: PCP Family Medicine; Referring Provider Family Medicine; Visit Provider Family Medicine
DX: I65.23 Occlusion and stenosis of bilateral carotid arteries (principal)
CPT/HCPCS: 93880

== ENCOUNTER → 2021-03-07 | Outpatient (CLI) | payer MEDICARE, OTHER, SELFPAY ==
--- NOTE | 2021-03-07 | LES_PTH ---
PATIENT: JORDY ERAZO LOC: [facility] U#:[id number] AGE/SX: 85/F ROOM: RE03/07/[address]: Dr. Alton Nguyen MD : 1935 BED: DIS: 03/07/2021 SPEC #: [id number] RECD: 03/07/21 15:28 STATUS: KAVON ENGLE #: [id number] MANUELA: 03/07/21 00:[address]: Alton Nguyen DEPT: SURGICAL PATHOLOGY RECD BY: Carlos Jain ENTERED: 03/08/21 08:19 SP TYPE: Lesion OTHR DR: Dr. Antonio Garsia, DO Tissues: Skin of leg, NOS Procedures: Surgery Specimen Level IV HEADER OPERATION: Excision right leg varicosity PRE-OP DIAGNOSIS: Right leg varicosity TISSUE SUBMITTED: Right leg tissue MICROSCOPIC DIAGNOSIS Right leg tissue, excision: Skin with underlying tissue with dilated blood vessel, consistent with varicose vein. SJ:halley 03/09/2021 COMMENT Case has been reviewed in consultation with Dr. Mcgovern who concurs with the above diagnosis. IDC:AM MICROSCOPIC DESCRIPTION Slides are reviewed. GROSS DESCRIPTION Received in fixative is one container labeled with the patient's name and designated right leg. The specimen consists of a álvarez-white skin ellipse measuring 1 x 0.3 x 0.3 cm. The specimen is inked and submitted entirely in one cassette. It will be sectioned at the time of embedding. / ORLY:halley 03/08/21 TC:5 CPT: 73150
[2021-03-07 11:36] VITALS: BMI 26.4
== END | disposition home or self-care (01) ==
LOC: LABSPEC 15:43
PROVIDERS: PCP Family Medicine; Referring Provider Surgery; Visit Provider Surgery
DX: I83.91 Asymptomatic varicose veins of right lower extremity (principal)
CPT/HCPCS: 88305

== ENCOUNTER → 2021-05-28 | Outpatient (CLI) | payer MEDICARE, OTHER, SELFPAY | END | disposition home or self-care (01) | LOC: LABSPEC 05-29 10:48 | PROVIDERS: PCP Family Medicine; Referring Provider Family Medicine; Visit Provider Family Medicine | DX: R30.0 Dysuria (principal); R35.0 Frequency of micturition | CPT/HCPCS: 87077; 87086; 87088; 87186 ==

== ENCOUNTER → 2021-11-24 | Outpatient (CLI) | payer MEDICARE, OTHER, SELFPAY ==
[2021-11-24 10:31] LABS: Absolute Lymphocyte Count 2.94 X10^3/uL (0.83-4.51); Basophil# 0.06 X10^3/uL; Basophil% 0.7 % (0-1); Eosinophil# 0.26 X10^3/uL; Eosinophils% 3.2 % (0-5); Hematocrit 40.6 % (37-47); Hemoglobin 12.9 g/dL (12.0-15.0); Lymphocyte # 2.94 X10^3/ul (0.83-4.51); Lymphocyte % 36.6 % (19-41); Mean Corp Hgb Conc 31.8 g/dL (32-36); Mean Corpuscular Hgb 27.5 pg (27.0-32.0); Mean Corpuscular Volume 86.6 fL (81-99); Monocyte# 0.75 X10^3/uL; Monocyte% 9.3 % (0-10); NRBC Flagged by Analyzer 0 % (0-5); Neutrophil # 4.02 X10^3/uL (2.7-7.7); Neutrophil % 50.1 % (47-70); Platelet Count 240 K/mm3 (150-450); RBC Distribution Width CV 14.3 % (11.6-14.6); RBC Distribution Width SD 45.5 fl (35.1-43.9); Red Blood Count 4.69 M/mm3 (4.2-5.4)
[2021-11-24 10:52] LABS: AST(SGOT) 23 U/L (15-37); Alanine Aminotransfer ALT/SGPT 27 U/L (13-56); Albumin, Serum 3.7 g/dL (3.2-5.0); Alkaline Phosphatase 96 U/L (45-117); Anion Gap 4 (5-15); BUN 26 mg/dL (7-18); BUN/Creat Ratio 24.1 RATIO (10-20); Bilirubin, Direct 0.13 mg/dL (0.00-0.30); Calcium,Total 9.2 mg/dL (8.5-10.1); Chloride 107 mmol/L (98-107); Cholesterol 125 mg/dL (200); Creatinine, Serum 1.08 mg/dL (0.55-1.02); EST Glomerular Filtration Rate 51 mL/min (>60); Est Glom Filt Rate - Afr Amer 62 mL/min (>60); Glucose 134 mg/dL (74-106); High Density Lipoprotein 53 mg/dL; Magnesium 2.2 mg/dL (1.6-2.6); Potassium 4.5 mmol/L (3.5-5.1); Protein, Total 6.7 g/dL (6.4-8.2); Sodium Level 140 mmol/L (136-145); Triglycerides 100 mg/dL; Very Low Density Lipoprotein 20 mg/dL (5-40)
== END | disposition home or self-care (01) ==
LOC: LAB 09:50
PROVIDERS: PCP Family Medicine; Visit Provider Nurse Practitioner Family
DX: I47.1 Supraventricular tachycardia (principal); I48.0 Paroxysmal atrial fibrillation; I34.1 Nonrheumatic mitral (valve) prolapse; I10 Essential (primary) hypertension
CPT/HCPCS: 36415; 80048; 80061; 80076; 83735; 85025

== ENCOUNTER → 2022-09-02 | Outpatient (CLI) | payer MEDICARE, OTHER, SELFPAY | END | disposition home or self-care (01) | PROVIDERS: PCP Family Medicine; Visit Provider Specialist | DX: Z91.038 Other insect allergy status (principal) | CPT/HCPCS: 36415; 83520 ==

== ENCOUNTER → 2022-10-11 | Outpatient (CLI) | payer MEDICARE, OTHER, SELFPAY ==
--- NOTE | 2022-10-11 14:20 | RAD_ITS ---
STUDY: X-RAY CHEST REASON FOR EXAM: Female, 86 years old. Cough and crackles. TECHNIQUE: PA and lateral views of the chest. COMPARISON: January 05, 2021 FINDINGS: The lungs are clear and expanded. There is no demonstrated pleural abnormality. Normal size heart. Normal mediastinum and ruben. Normal visualized pulmonary arteries. There is atherosclerotic calcification of the aortic arch with tortuosity. There is demineralization of the osseous structures. Normal visualized ribs, clavicles, and shoulders. There is no demonstrated abnormality of the visualized soft tissue structures of the upper abdomen. RAD/Chest PA and Lateral IMPRESSION: No acute cardiopulmonary disease or major interval change. Electronically Signed: Geremias Adams DO at 19:43 EST ,
[2022-10-11 17:37] LABS: Absolute Lymphocyte Count 2.62 X10^3/uL (0.83-4.51); Absolute Neutrophil Count 7.5 X10^3/uL (2.0-7.7); Basophil# 0.07 X10^3/uL; Basophil% 0.6 % (0-1); Eosinophil# 0.36 X10^3/uL; Eosinophils% 3.1 % (0-5); Hematocrit 40.9 % (37-47); Hemoglobin 12.4 g/dL (12.0-15.0); Lymphocyte # 2.62 X10^3/ul (0.83-4.51); Lymphocyte % 22.4 % (19-41); Mean Corp Hgb Conc 30.3 g/dL (32-36); Mean Corpuscular Hgb 27.1 pg (27.0-32.0); Mean Corpuscular Volume 89.3 fL (81-99); Mean Platelet Vol. 10.7 fl (6.2-12.0); Monocyte# 1.14 X10^3/uL; Monocyte% 9.7 % (0-10); NRBC Flagged by Analyzer 0 % (0-5); Neutrophil # 7.49 X10^3/uL (2.7-7.7); Neutrophil % 63.9 % (47-70); Platelet Count 257 K/mm3 (150-450); RBC Distribution Width CV 14.9 % (11.6-14.6); RBC Distribution Width SD 49.1 fl (35.1-43.9); Red Blood Count 4.58 M/mm3 (4.2-5.4); White Blood Count 11.7 K/mm3 (4.4-11.0)
[2022-10-11 18:13] LABS: ALB/GLOB Ratio 1.1 RATIO (0.9-2.4); AST(SGOT) 67 U/L (15-37); Alanine Aminotransfer ALT/SGPT 71 U/L (13-56); Albumin, Serum 3.8 g/dL (3.2-5.0); Alkaline Phosphatase 247 U/L (45-117); Anion Gap 6 (5-15); BUN 22 mg/dL (7-18); Calcium,Total 9.8 mg/dL (8.5-10.1); Chloride 104 mmol/L (98-107); Creatinine, Serum 1.05 mg/dL (0.55-1.02); EST Glomerular Filtration Rate 53 mL/min (>60); Est Glom Filt Rate - Afr Amer 64 mL/min (>60); Globulin 3.5 g/dL (2.2-4.2); Glucose 80 mg/dL (74-106); Protein, Total 7.3 g/dL (6.4-8.2); Sodium Level 139 mmol/L (136-145)
== END | disposition home or self-care (01) ==
PROVIDERS: PCP Family Medicine; Referring Provider Family Medicine; Visit Provider Family Medicine
DX: R05.9 Cough, unspecified (principal); R50.9 Fever, unspecified
CPT/HCPCS: 36415; 71046; 80053; 85025; 87635; U0003; U0005

== ENCOUNTER → 2022-12-11 | Outpatient (CLI) | payer MEDICARE, OTHER, SELFPAY ==
[2022-12-11 11:31] LABS: Absolute Lymphocyte Count 2.98 X10^3/uL (0.83-4.51); Absolute Neutrophil Count 3.9 X10^3/uL (2.0-7.7); Basophil# 0.07 X10^3/uL; Basophil% 0.9 % (0-1); Eosinophils% 2.6 % (0-5); Hematocrit 42.7 % (37-47); Hemoglobin 13.1 g/dL (12.0-15.0); Lymphocyte # 2.98 X10^3/ul (0.83-4.51); Lymphocyte % 38.3 % (19-41); Mean Corp Hgb Conc 30.7 g/dL (32-36); Mean Corpuscular Hgb 27.4 pg (27.0-32.0); Mean Corpuscular Volume 89.3 fL (81-99); Mean Platelet Vol. 10.6 fl (6.2-12.0); Monocyte# 0.62 X10^3/uL; NRBC Flagged by Analyzer 0 % (0-5); Neutrophil % 49.9 % (47-70); Platelet Count 241 K/mm3 (150-450); RBC Distribution Width CV 14.6 % (11.6-14.6); RBC Distribution Width SD 48.3 fl (35.1-43.9); Red Blood Count 4.78 M/mm3 (4.2-5.4); White Blood Count 7.8 K/mm3 (4.4-11.0)
[2022-12-11 11:49] LABS: Hemoglobin A1c 6.3 % (3.8-5.6)
[2022-12-11 12:03] LABS: ALB/GLOB Ratio 1.2 RATIO (0.9-2.4); AST(SGOT) 38 U/L (15-37); Alanine Aminotransfer ALT/SGPT 36 U/L (13-56); Albumin, Serum 3.6 g/dL (3.2-5.0); Alkaline Phosphatase 113 U/L (45-117); Anion Gap 6 (5-15); BUN 23 mg/dL (7-18); BUN/Creat Ratio 24.3 RATIO (10-20); Bilirubin, Direct 0.14 mg/dL (0.00-0.30); Calcium,Total 9.1 mg/dL (8.5-10.1); Chloride 107 mmol/L (98-107); Cholesterol 133 mg/dL (200); Creatinine, Serum 0.95 mg/dL (0.55-1.02); EST Glomerular Filtration Rate 60 mL/min (>60); Est Glom Filt Rate - Afr Amer 72 mL/min (>60); Globulin 3.1 g/dL (2.2-4.2); Glucose 116 mg/dL (74-106); High Density Lipoprotein 67 mg/dL; Potassium 4.3 mmol/L (3.5-5.1); Protein, Total 6.7 g/dL (6.4-8.2); Sodium Level 141 mmol/L (136-145); Triglycerides 96 mg/dL; Very Low Density Lipoprotein 19 mg/dL (5-40)
== END | disposition home or self-care (01) ==
PROVIDERS: PCP Family Medicine; Referring Provider Family Medicine; Visit Provider Family Medicine
DX: I48.0 Paroxysmal atrial fibrillation (principal); I65.23 Occlusion and stenosis of bilateral carotid arteries; R73.01 Impaired fasting glucose
CPT/HCPCS: 36415; 80053; 80061; 82248; 83036; 83735; 85025

== ENCOUNTER → 2023-09-02 | Outpatient (CLI) | payer MEDICARE, OTHER, SELFPAY ==
--- OUTSIDE RECORDS SUMMARY | 2023-09-02 15:44 | XMS RPT_ITS | CCD ---
Author Name Unknown Address [address] [place] [address] Organization [facility] Care Team Providers Care Application Developer Name Role Phone Wei Garsia Primary Care Provider [phone] GARRET SANCHEZ Attending Unavailable WEI GARSIA Primary Care Unavailable GARRET SANCHEZ Attending Unavailable WEI GARSIA Primary Care Unavailable GARRET SANCHEZ Attending Unavailable WEI GARSIA Primary Care Unavailable GARRET SANCHEZ Attending Unavailable WEI GARSIA Primary Care Unavailable Allergies Allergy Classification Reported Allergen(s) Allergy Type Date of Onset Reaction(s) Facility (4 sources) Penicillins Propensity to adverse reactions 06-26-2022 [facility] Medications Current Medications Medication Drug Class(es) Dates Sig (Normalized) Sig (Original) apixaban 2.5 mg oral tablet (4 sources) Factor Xa Inhibitor take 1 tablet by mouth twice daily apixaban (Eliquis) 2.5 MG tablet Take 2.5 mg by mouth 2 times daily. 0 Active atorvastatin 10 mg oral tablet (4 sources) HMG-CoA Reductase Inhibitor Start: 12-16-2022 take 1 tablet by mouth once daily atorvastatin (Lipitor) 10 MG tablet Take 10 mg by mouth daily. 0 12/16/2022 Active digoxin 0.125 mg oral tablet (4 sources) Cardiac Glycoside digoxin (Lanoxin) 125 MCG tablet Take by mouth. 0 Active melatonin 10 mg oral tablet (4 sources) melatonin 10 MG tablet Take by mouth. 0 Active 24 hr metoprolol succinate 50 mg extended release oral tablet (5 sources) beta-Adrenergic Vishal Start: 12-10-2022 take 1 tablet by mouth once daily metoprolol succinate XL (Toprol-XL) 50 MG 24 hr tablet Take 50 mg by mouth daily. 0 12/10/2022 Active Completed/Discontinued Medications Medication Drug Class(es) Dates Sig (Normalized) Sig (Original) aspirin 81 mg delayed release oral tablet (1 source) Platelet Aggregation Inhibitor, Nonsteroidal Anti-inflammatory Drug End: 3 take 1 tablet by mouth in the morning aspirin 81 MG EC tablet Take 81 mg by mouth in the morning. 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 Other hereditary and degenerative nervous system conditions (2 sources) Spasmodic torticollis; 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 Unclassified (2 sources) Procedure; Translations: [Procedure] Onset: 01-01-2023 Results Test Name Value Interpretation Reference Range Facil ity Vital Signs Date Time Vital Sign Value Performing Clinician Faci lity 07-09-2023 15:23-0500 Diastolic blood pressure 87 mm[Hg] Garret Sanchez MD Work Phone: [employer] 07-09-2023 15:23-0500 Heart rate 63 /min Garret Sanchez MD Work Phone: [employer] 07-09-2023 15:23-0500 Systolic blood pressure 148 mm[Hg] Garret Sanchez MD Work Phone: [employer] 04-09-2023 14:05-0400 Body height 170.2 cm Garret Sanchez MD Work Phone: [employer] 04-09-2023 14:05-0400 Body mass index (BMI) [Ratio] 26.16 kg/m2 Garret Sanchez MD Work Phone: [employer] 04-09-2023 14:05-0400 Body temperature 97.59 [degF] Garret Sanchez MD Work Phone: [facility] 04-09-2023 14:05-0400 Body weight 75.75 kg Garret Sanchez MD Work Phone: [facility] 04-09-2023 14:05-0400 Diastolic blood pressure 60 mm[Hg] Garret Sanchez MD Work Phone: [facility] 04-09-2023 14:05-0400 Heart rate 63 /min Garret Sanchez MD Work Phone: [facility] 04-09-2023 14:05-0400 Systolic blood pressure 144 mm[Hg] Garret Sanchez MD Work Phone: [facility] 01-01-2023 13:49-0400 Body temperature 97.5 [degF] Garret Sanchez MD Work Phone: [facility] 01-01-2023 13:49-0400 Diastolic blood pressure 88 mm[Hg] Garret Sanchez MD Work Phone: [facility] 01-01-2023 13:49-0400 Systolic blood pressure 146 mm[Hg] Garret Sanchez MD Work Phone: [facility] Encounters Encounter Date Encounter Type Care Provider Facility Start: 07-09-2023 End: 07-09-2023 ambulatory GARRET SANCHEZ [facility] Start: 07-09-2023 End: 07-09-2023 Patient encounter procedure Garret Sanchez MD Work Phone: [facility] Plan of Treatment Date Care Activity Detail Author Start: 10-15-2023 End: 10-15-2023 Patient encounter procedure 10/15/2023 11:45 AM EDT Procedure Visit [facility] [address] [place] [address] [place] [address] Garret Sanchez MD [address] [place] [address] [facility] Start: 07-09-2023 End: 07-09-2023 Patient encounter procedure 07/09/2023 3:00 PM EST Procedure Visit [facility] [address] [place] [address] [place] [id number] Garret Sanchez MD [address] [place] [address] [facility] Start: 04-09-2023 End: 04-09-2023 Patient encounter procedure 04/09/2023 Procedure Visit Neurology Garret Sanchez MD [address] [place] [address] [facility] Start: 04-04-2023 COVID-19 Vaccine ( season) COVID-19 Vaccine ( season) [facility] Start: 04-04-2023 Influenza vaccination Influenza Vaccine (#1) [facility] Start: 02-15-2022 COVID-19 Vaccine (5 - Booster for Moderna series) COVID-19 Vaccine (5 - Booster for Moderna series) [facility] Start: 01-04-2016 DTaP/Tdap/Td Vaccines (2 - Td or Tdap) DTaP/Tdap/Td Vaccines (2 - Td or Tdap) [facility] Start: 2002 Pneumococcal Vaccine: 65+ Years (1 - PCV) Pneumococcal Vaccine: 65+ Years (1 - PCV) [facility] Start: 1997 RSV Immunization aged 60 or older (1 - 1-dose 60+ series) RSV Immunization aged 60 or older (1 - 1-dose 60+ series) [facility] Start: 11-30-1955 Diabetes mellitus screening Diabetes Screening [facility] Start: 1949 Depression Screening Depression Screening [facility] Start: 1937 Lipid panel Lipid Panel [facility] Start: 1937 Medicare Annual Wellness (AWV) Medicare Annual Wellness (AWV) [facility] Start: 1935 Screening for osteoporosis Bone Density Scan [facility] Immunizations Immunization Date Immunization Notes Care Provider Fa cility 05-15-2022 influenza virus vacc ine, unspecified formulation Garret Sanchez MD Work Phone: [facility] Payers Date Payer Category Payer Unknown [employer] [id number] 2010-Present [address] [place] [address] Commercial [id number] 2010 Unknown [id number] 2004 Medicare MEDICARE MEDICAR E PART A AND B [id number] 2004-Present [address] [place] [address] Medicare [id number] 2004 Medicare [id number] Social History Date Type Detail Facility Tobacco smoking status NHIS Never smoked tobacco [facility] Start: 01-01-2023 End: 07-09-2023 Alcohol intake Ex-drinker (finding) [facility] Start: 1935 Sex Assigned At Not on file [facility] Start: 12-22-2022 End: 04-09-2023 Exposure to SARS-CoV-2 (event) Not sure [facility] Start: 01-01-2023 End: 04-09-2023 History of Social function [facility] Start: 01-01-2023 End: 04-09-2023 Tobacco use panel [facility] Clinical Notes 10-02-2022 to 07-09-2023 Garret Sanchez MD - 07/09/2023 3:00 PM Marie Nunn MA - 07/09/2023 3:00 PM Jon Flowers MA - 04/09/2023 2:15 PM Ofe Flowers MA - 04/09/2023 2:15 PM EDT Note Date & Type Note Facility 07-09-2023 Note DEPARTMENT OF NEUROL OGY BOTOX PROCEDURE NOTE FOR CERVICAL DYSTONIA AND BLEPHAROSPASM Patient: Jordy Foster : 1935 Diagnosis: Cervical dystonia [G24.3] Procedure: Botox injections into the periorbital muscles bilaterally and cervical muscles. All cervical muscles injections were performed under EMG monitoring. Prior to procedure risks, benefits, alternatives, and potential side effects were reviewed with patient. Specifically reviewed possible risk of temporary muscle weakness. All questions were answered, patient expressed understanding, verbal consent given for procedure. Yes numbing spray applied. Botox was injected with the parameters below: With the patient in sitting position, she received Botox injections in the neck and eyes muscles. Patient receive the following doses: 1. R Frontalis 10 units 2. L Frontalis 10 units 3. R Entry Level Finance 10 units 4. L Entry Level Finance 10 units 5. Right superior eyelid 7 units 6. Right inferior eyelid 7 units 7. Left superior eyelid 7 units 8. Left inferior eyelid 7 units 9. Right orbicularis occuli 6 units 10. Left orbicularis occuli 6 units And the EMG monitoring the patient receive the following doses: 11. Right trapezius 50 units 12. Left trapezius 50 units 13. Right levator scapula 35 units 14. Left levator scapula 35 units Total units injected 250. Total units discarded were 50 units Comments: Patient tolerated procedure well. We will increase Botox doses in both periorbital region as well as in both trapezius. Patient will return for to the neurology clinic in 3 months and at that time we will repeat Botox injections. Patient reports that her symptoms are not as severe and frequent as before. She would like to space the treatment. We are going to try to follow-up patient in 13 to 14 weeks and see how she is doing. If her symptoms is still well-controlled we will extended to 18 weeks. If 1314 weeks patient already have spasms we will perform Botox injection. [x] Pt tolerated procedure well. Pt advised to avoid exercise or strenuous physical activity for 24 hours. Post treatment expectations reviewed in detail. GARRET SANCHEZ MD [facility] 07-09-2023 History of Presen t illness Narrative DEPARTMENT OF NEUROLOGY BOTOX PROCEDURE NOTE FOR CERVICAL DYSTONIA AND BLEPHAROSPASM Patient: Jordy Foster : 1935 Diagnosis: Cervical dystonia [G24.3] Procedure: Botox injections into the periorbital muscles bilaterally and cervical muscles. All cervical muscles injections were performed under EMG monitoring. Prior to procedure risks, benefits, alternatives, and potential side effects were reviewed with patient. Specifically reviewed possible risk of temporary muscle weakness. All questions were answered, patient expressed understanding, verbal consent given for procedure. Yes numbing spray applied. Botox was injected with the parameters below: With the patient in sitting position, she received Botox injections in the neck and eyes muscles. Patient receive the following doses: 1. R Frontalis 10 units 2. L Frontalis 10 units 3. R Entry Level Finance 10 units 4. L Entry Level Finance 10 units 5. Right superior eyelid 7 units 6. Right inferior eyelid 7 units 7. Left superior eyelid 7 units 8. Left inferior eyelid 7 units 9. Right orbicularis occuli 6 units 10. Left orbicularis occuli 6 units And the EMG monitoring the patient receive the following doses: 11. Right trapezius 50 units 12. Left trapezius 50 units 13. Right levator scapula 35 units 14. Left levator scapula 35 units Total units injected 250. Total units discarded were 50 units Comments: Patient tolerated procedure well. We will increase Botox doses in both periorbital region as well as in both trapezius. Patient will return for to the neurology clinic in 3 months and at that time we will repeat Botox injections. Patient reports that her symptoms are not as severe and frequent as before. She would like to space the treatment. We are going to try to follow-up patient in 13 to 14 weeks and see how she is doing. If her symptoms is still well-controlled we will extended to 18 weeks. If 1314 weeks patient already have spasms we will perform Botox injection. [x] Pt tolerated procedure well. Pt advised to avoid exercise or strenuous physical activity for 24 hours. Post treatment expectations reviewed in detail. GARRET SANCHEZ MD Administrations This Visit onabotulinumtoxin A (BOTOX) injection 200 Units Admin Date 07/09/23 Action Given Dose 200 Units Route IntraMUSCular Site Other Administered By GARRET SANCHEZ MD Ordering Provider: GARRET SANCHEZ MD [facility]: [id number] x3 Lot#: [id number] Certified Hyperbaric Technician: [employer] Patient Supplied?: No documented in this encounter [facility] 04-09-2023 Note DEPARTMENT OF NEUROL OGY BOTOX PROCEDURE NOTE FOR CERVICAL DYSTONIA AND BLEPHAROSPASM Date: 04/09/2023 Patient: Jordy Foster : 1935 Diagnosis: Cervical dystonia [G24.3] Procedure: Botox injections into the periorbital muscles bilaterally and cervical muscles. All cervical muscles injections were performed under EMG monitoring. Prior to procedure risks, benefits, alternatives, and potential side effects were reviewed with patient. Specifically reviewed possible risk of temporary muscle weakness. All questions were answered, patient expressed understanding, verbal consent given for procedure. Yes numbing spray applied. Botox was injected with the parameters below: With the patient in sitting position, she received Botox injections in the neck and eyes muscles. Patient receive the following doses: 1. R Frontalis 10 units 2. L Frontalis 10 units 3. R Entry Level Finance 10 units 4. L Entry Level Finance 10 units 5. Right superior eyelid 7 units 6. Right inferior eyelid 7 units 7. Left superior eyelid 7 units 8. Left inferior eyelid 7 units 9. Right orbicularis occuli 6 units 10. Left orbicularis occuli 6 units And the EMG monitoring the patient receive the following doses: 11. Right trapezius 50 units 12. Left trapezius 50 units 13. Right levator scapula 35 units 14. Left levator scapula 35 units Total units injected 250. Total units discarded were 50 units Comments: Patient tolerated procedure well. We will increase Botox doses in both periorbital region as well as in both trapezius. Patient will return for to the neurology clinic in 3 months and at that time we will repeat Botox injections. [x] Pt tolerated procedure well. Pt advised to avoid exercise or strenuous physical activity for 24 hours. Post treatment expectations reviewed in detail. GARRET SANCHEZ MD [facility] 04-09-2023 History of Presen t illness Narrative DEPARTMENT OF NEUROLOGY BOTOX PROCEDURE NOTE FOR CERVICAL DYSTONIA AND BLEPHAROSPASM Date: 04/09/2023 Patient: Jordy Foster : 1935 Diagnosis: Cervical dystonia [G24.3] Procedure: Botox injections into the periorbital muscles bilaterally and cervical muscles. All cervical muscles injections were performed under EMG monitoring. Prior to procedure risks, benefits, alternatives, and potential side effects were reviewed with patient. Specifically reviewed possible risk of temporary muscle weakness. All questions were answered, patient expressed understanding, verbal consent given for procedure. Yes numbing spray applied. Botox was injected with the parameters below: With the patient in sitting position, she received Botox injections in the neck and eyes muscles. Patient receive the following doses: 1. R Frontalis 10 units 2. L Frontalis 10 units 3. R Entry Level Finance 10 units 4. L Entry Level Finance 10 units 5. Right superior eyelid 7 units 6. Right inferior eyelid 7 units 7. Left superior eyelid 7 units 8. Left inferior eyelid 7 units 9. Right orbicularis occuli 6 units 10. Left orbicularis occuli 6 units And the EMG monitoring the patient receive the following doses: 11. Right trapezius 50 units 12. Left trapezius 50 units 13. Right levator scapula 35 units 14. Left levator scapula 35 units Total units injected 250. Total units discarded were 50 units Comments: Patient tolerated procedure well. We will increase Botox doses in both periorbital region as well as in both trapezius. Patient will return for to the neurology clinic in 3 months and at that time we will repeat Botox injections. [x] Pt tolerated procedure well. Pt advised to avoid exercise or strenuous physical activity for 24 hours. Post treatment expectations reviewed in detail. GARRET SANCHEZ MD documented in this encounter [facility] 04-09-2023 History of Presen t illness Narrative DEPARTMENT OF NEUROLOGY BOTOX PROCEDURE NOTE FOR CERVICAL DYSTONIA AND BLEPHAROSPASM Date: 04/09/2023 Patient: Jordy Foster : 1935 Diagnosis: Cervical dystonia [G24.3] Procedure: Botox injections into the periorbital muscles bilaterally and cervical muscles. All cervical muscles injections were performed under EMG monitoring. Prior to procedure risks, benefits, alternatives, and potential side effects were reviewed with patient. Specifically reviewed possible risk of temporary muscle weakness. All questions were answered, patient expressed understanding, verbal consent given for procedure. Yes numbing spray applied. Botox was injected with the parameters below: With the patient in sitting position, she received Botox injections in the neck and eyes muscles. Patient receive the following doses: 1. R Frontalis 10 units 2. L Frontalis 10 units 3. R Entry Level Finance 10 units 4. L Entry Level Finance 10 units 5. Right superior eyelid 7 units 6. Right inferior eyelid 7 units 7. Left superior eyelid 7 units 8. Left inferior eyelid 7 units 9. Right orbicularis occuli 6 units 10. Left orbicularis occuli 6 units And the EMG monitoring the patient receive the following doses: 11. Right trapezius 50 units 12. Left trapezius 50 units 13. Right levator scapula 35 units 14. Left levator scapula 35 units Total units injected 250. Total units discarded were 50 units Comments: Patient tolerated procedure well. We will increase Botox doses in both periorbital region as well as in both trapezius. Patient will return for to the neurology clinic in 3 months and at that time we will repeat Botox injections. [x] Pt tolerated procedure well. Pt advised to avoid exercise or strenuous physical activity for 24 hours. Post treatment expectations reviewed in detail. GARRET SANCHEZ MD Administrations This Visit onabotulinumtoxin A (BOTOX) injection 200 Units Admin Date 04/10/23 Action Given Dose 200 Units Route IntraMUSCular Site Other Administered By GARRET SANCHEZ MD Ordering Provider: GARRET SANCHEZ MD [place]: [id number], [id number] Lot#: [id number] Certified Hyperbaric Technician: [employer] Patient Supplied?: No documented in this encounter [facility] 01-01-2023 Note DEPARTMENT OF NEUROL OGY BOTOX PROCEDURE NOTE FOR CERVICAL DYSTONIA AND BLEPHAROSPASM Date 01/01/23 Patient: Jordy Foster : 1935 Diagnosis: Cervical dystonia [G24.3] Procedure: Botox injections into the periorbital muscles bilaterally and cervical muscles. All cervical muscles injections were performed under EMG monitoring. Prior to procedure risks, benefits, alternatives, and potential side effects were reviewed with patient. Specifically reviewed possible risk of temporary muscle weakness. All questions were answered, patient expressed understanding, verbal consent given for procedure. Yes numbing spray applied. Botox was injected with the parameters below: With the patient in sitting position, she received Botox injections in the neck and eyes muscles. Patient receive the following doses: 1. R Frontalis 10 units 2. L Frontalis 10 units 3. R Entry Level Finance 10 units 4. L Entry Level Finance 10 units 5. Right superior eyelid 7 units 6. Right inferior eyelid 7 units 7. Left superior eyelid 7 units 8. Left inferior eyelid 7 units 9. Right orbicularis occuli 6 units 10. Left orbicularis occuli 6 units And the EMG monitoring the patient receive the following doses: 11. Right trapezius 50 units 12. Left trapezius 50 units 13. Right levator scapula 35 units 14. Left levator scapula 35 units Total units injected 250. Total units discarded were 50 units Comments: Patient tolerated procedure well. We will increase Botox doses in both periorbital region as well as in both trapezius. Patient will return for to the neurology clinic in 3 months and at that time we will repeat Botox injections. [x] Pt tolerated procedure well. Pt advised to avoid exercise or strenuous physical activity for 24 hours. Post treatment expectations reviewed in detail. GARRET SANCHEZ MD [facility] 01-01-2023 History of Presen t illness Narrative DEPARTMENT OF NEUROLOGY BOTOX PROCEDURE NOTE FOR CERVICAL DYSTONIA AND BLEPHAROSPASM Date 01/01/23 Patient: Jordy Foster : 1935 Diagnosis: Cervical dystonia [G24.3] Procedure: Botox injections into the periorbital muscles bilaterally and cervical muscles. All cervical muscles injections were performed under EMG monitoring. Prior to procedure risks, benefits, alternatives, and potential side effects were reviewed with patient. Specifically reviewed possible risk of temporary muscle weakness. All questions were answered, patient expressed understanding, verbal consent given for procedure. Yes numbing spray applied. Botox was injected with the parameters below: With the patient in sitting position, she received Botox injections in the neck and eyes muscles. Patient receive the following doses: 1. R Frontalis 10 units 2. L Frontalis 10 units 3. R Entry Level Finance 10 units 4. L Entry Level Finance 10 units 5. Right superior eyelid 7 units 6. Right inferior eyelid 7 units 7. Left superior eyelid 7 units 8. Left inferior eyelid 7 units 9. Right orbicularis occuli 6 units 10. Left orbicularis occuli 6 units And the EMG monitoring the patient receive the following doses: 11. Right trapezius 50 units 12. Left trapezius 50 units 13. Right levator scapula 35 units 14. Left levator scapula 35 units Total units injected 250. Total units discarded were 50 units Comments: Patient tolerated procedure well. We will increase Botox doses in both periorbital region as well as in both trapezius. Patient will return for to the neurology clinic in 3 months and at that time we will repeat Botox injections. [x] Pt tolerated procedure well. Pt advised to avoid exercise or strenuous physical activity for 24 hours. Post treatment expectations reviewed in detail. GARRET SANCHEZ MD Administrations This Visit onabotulinumtoxin A (BOTOX) injection 200 Units Admin Date 01/01/23 Action Given Dose 200 Units Route IntraMUSCular Site Other Administered By GARRET SANCHEZ MD Ordering Provider: GARRET SANCHEZ MD [place]: [id number] Lot#: [id number] Certified Hyperbaric Technician: [employer] Patient Supplied?: No Administrations This Visit onabotulinumtoxin A (BOTOX) injection 200 Units Admin Date 01/01/23 Action Given Dose 200 Units Route IntraMUSCular Site Other Administered By GARRET SANCHEZ MD Ordering Provider: GARRET SANCHEZ MD ND: [id number] Lot#: [id number] Certified Hyperbaric Technician: [employer] Patient Supplied?: No documented in this encounter [facility] 10-02-2022 Note DEPARTMENT OF NEUROL OGY BOTOX PROCEDURE NOTE FOR CERVICAL DYSTONIA AND BLEPHAROSPASM Date :10/02/22 Patient: Jordy Foster : 1935 Diagnosis: Cervical dystonia [G24.3] Procedure: Botox injections into the periorbital muscles bilaterally and cervical muscles. All cervical muscles injections were performed under EMG monitoring. Prior to procedure risks, benefits, alternatives, and potential side effects were reviewed with patient. Specifically reviewed possible risk of temporary muscle weakness. All questions were answered, patient expressed understanding, verbal consent given for procedure. Yes numbing spray applied. Botox was injected with the parameters below: With the patient in sitting position, she received Botox injections in the neck and eyes muscles. Patient receive the following doses: 1. R Frontalis 10 units 2. L Frontalis 10 units 3. R Entry Level Finance 10 units 4. L Entry Level Finance 10 units 5. Right superior eyelid 7 units 6. Right inferior eyelid 7 units 7. Left superior eyelid 7 units 8. Left inferior eyelid 7 units 9. Right orbicularis occuli 6 units 10. Left orbicularis occuli 6 units And the EMG monitoring the patient receive the following doses: 11. Right trapezius 50 units 12. Left trapezius 50 units 13. Right levator scapula 35 units 14. Left levator scapula 35 units Total units injected 250. Total units discarded were 50 units Comments: Patient tolerated procedure well. We will increase Botox doses in both periorbital region as well as in both trapezius. Patient will return for to the neurology clinic in 3 months and at that time we will repeat Botox injections. [x] Pt tolerated procedure well. Pt advised to avoid exercise or strenuous physical activity for 24 hours. Post treatment expectations reviewed in detail. GARRET SANCHEZ MD [facility] documented in this encounter [facility]* Diagnosis Cervical dystonia- Primary Spasmodic torticollis [facility] Cervical dystonia- Primary Spasmodic torticollis [facility] Diagnosis Cervical dystonia- Primary Spasmodic torticollis documented in this encounter [facility] Reason for Referral Specialty Diagnoses / Procedures Referred By Yuki rajput Referred To Contact Diagnoses Blepharospasm Diana Hernandez, HOME FURNISHINGS SALES REPRESENTATIVE - CUSTOMER INSIGHT ANALYST [address] [place] [address] Referral ID Status Reason Start Date Expiration Date V isits Requested Visits Authorized [id number] Pending Review 01/01/2023 06/30/2023 1 1 Specialty Diagnoses / Procedures Referred By Yuki rajput Referred To Contact Diagnoses Cervical dystonia Garret Sanchez MD [address] [facility] [place] [address] Referral ID Status Reason Start Date Expiration Date V isits Requested Visits Authorized [id number] Pending Review 04/09/2023 10/06/2023 1 1 Referral ID Status Reason Start Date Expiration Date V isits Requested Visits Authorized [id number] Pending Review 07/09/2023 01/05/2024 1 1 Summary Purpose Family History No Family History Records Found Advance Directives No Advanced Directives Records Found Additional Source Comments Reason for Visit (unrecogniz ed section and content) Specialty Diagnoses / Procedures Referred By Contac t Referred To Contact Diagnoses Blepharospasm Diana Hernandez, HOME FURNISHINGS SALES REPRESENTATIVE - CUSTOMER INSIGHT ANALYST [address] [place] [address] Referral ID Status Reason Start Date Expiration Date V isits Requested Visits Authorized [id number] Pending Review 01/01/2023 06/30/2023 1 1 Reason Comments Procedure Botox Specialty Diagnoses / Procedures Referred By Contac t Referred To Contact Diagnoses Cervical dystonia Garret Sanchez MD [address] [place] [address] Referral ID Status Reason Start Date Expiration Date V isits Requested Visits Authorized [id number] Pending Review 04/09/2023 10/06/2023 1 1 Referral ID Status Reason Start Date Expiration Date V isits Requested Visits Authorized [id number] Pending Review 07/09/2023 01/05/2024 1 1 Care Teams (unrecognized sec tion and content) Application Developer Relationship Specialty Start Date End Date SunWei evans [address] [place] [address] PCP - General 01/19/20 Application Developer Relationship Specialty Start Date End Date SunWei berrios [address] [place] [address] PCP - General 01/19/20 Application Developer Relationship Specialty Start Date End Date Sun Wei Wade [address] [place] [id number] PCP - General 01/19/20 INFORMATION SOURCE (unrecogn ized section and content) FOR RECORDS PERTAINING TO PATIENTS WHO ARE OR HAVE BEEN ENROLLED IN A CHEMICAL DEPENDENCY/SUBSTANCEABUSE PROGRAM, SOME INFORMATION MAY BE OMITTED. This clinical summary was aggregated from multiple sources. Caution should be exercised in using it in the provision of clinical care. This summary normalizes information from multiple sources, and as a consequence, information in this document may materially change the coding, format and clinical context of patient data. In addition, data may be omitted in some cases. CLINICAL DECISIONS SHOULD BE BASED ON THE PRIMARY CLINICAL RECORDS. [facility] [employer] [facility]. provides no warranty or guarantee of the accuracy or completeness of information in this document.
== END | disposition home or self-care (01) ==
LOC: LABSPEC 15:22
PROVIDERS: PCP Family Medicine; Visit Provider Family Medicine
DX: R35.0 Frequency of micturition (principal)
CPT/HCPCS: 87077; 87086; 87088; 87186

== ENCOUNTER → 2023-10-28 | Outpatient (CLI) | payer MEDICARE, OTHER, SELFPAY ==
[2023-10-28 17:55] LABS: Absolute Lymphocyte Count 2.66 X10^3/uL (0.83-4.51); Absolute Neutrophil Count 4.7 X10^3/uL (2.0-7.7); Basophil# 0.08 X10^3/uL; Basophil% 0.9 % (0-1); Eosinophil# 0.36 X10^3/uL; Eosinophils% 4.2 % (0-5); Hematocrit 41.9 % (37-47); Hemoglobin 12.8 g/dL (12.0-15.0); Lymphocyte # 2.66 X10^3/ul (0.83-4.51); Lymphocyte % 30.8 % (19-41); Mean Corp Hgb Conc 30.5 g/dL (32-36); Mean Corpuscular Hgb 26.6 pg (27.0-32.0); Mean Corpuscular Volume 87.1 fL (81-99); Mean Platelet Vol. 10.6 fl (6.2-12.0); Monocyte# 0.77 X10^3/uL; Monocyte% 8.9 % (0-10); NRBC Flagged by Analyzer 0 % (0-5); Neutrophil # 4.74 X10^3/uL (2.7-7.7); Platelet Count 235 K/mm3 (150-450); RBC Distribution Width CV 14.4 % (11.6-14.6); Red Blood Count 4.81 M/mm3 (4.2-5.4); White Blood Count 8.6 K/mm3 (4.4-11.0)
[2023-10-28 18:03] LABS: Erythrocyte Sedimentation Rate 11 mm/hr (0-30)
[2023-10-28 18:06] LABS: ALB/GLOB Ratio 1.3 RATIO (0.9-2.4); AST(SGOT) 23 U/L (15-37); Alanine Aminotransfer ALT/SGPT 25 U/L (13-56); Albumin, Serum 3.9 g/dL (3.2-5.0); Alkaline Phosphatase 96 U/L (45-117); Anion Gap 6 (5-15); BUN 26 mg/dL (7-18); BUN/Creat Ratio 23.9 RATIO (10-20); CRP 3.05 mg/L (0.0-3.0); Calcium,Total 9.5 mg/dL (8.5-10.1); Chloride 108 mmol/L (98-107); Creatinine, Serum 1.09 mg/dL (0.55-1.02); EST Glomerular Filtration Rate 51 mL/min (>60); Est Glom Filt Rate - Afr Amer 61 mL/min (>60); Glucose 97 mg/dL (74-106); Potassium 4.5 mmol/L (3.5-5.1); Protein, Total 6.9 g/dL (6.4-8.2); Sodium Level 141 mmol/L (136-145)
[2023-11-15 14:10] LABS: ANTINUCLEAR ANTIBODIES DIRECT Negative
== END | disposition home or self-care (01) ==
LOC: MTLAB 16:00
PROVIDERS: PCP Family Medicine; Referring Provider Family Medicine; Visit Provider Family Medicine
DX: T78.3XXA Angioneurotic edema, initial encounter (principal); L30.9 Dermatitis, unspecified; Z51.81 Encounter for therapeutic drug level monitoring
CPT/HCPCS: 36415; 80053; 85025; 85652; 86003; 86038; 86140; 86225; 86235

== ENCOUNTER → 2023-11-11 | Outpatient (CLI) | payer MEDICARE, OTHER, SELFPAY ==
[2023-11-11 16:46] LABS: Digoxin Level 0.62 ng/mL (0.80-2.00)
== END | disposition home or self-care (01) ==
LOC: LAB 15:00
PROVIDERS: PCP Family Medicine; Referring Provider Internal Medicine Cardiovascular Disease; Visit Provider Internal Medicine Cardiovascular Disease
DX: I48.0 Paroxysmal atrial fibrillation (principal)
CPT/HCPCS: 36415; 80162

== ENCOUNTER → 2023-11-12 | Outpatient (CLI) | payer MEDICARE, OTHER, SELFPAY ==
[2023-11-17 02:06] LABS: Clam <0.10 kU/L (Class 0); Codfish <0.10 kU/L (Class 0); Corn <0.10 kU/L (Class 0); Egg, White <0.10 kU/L (Class 0); Milk (Cow) <0.10 kU/L (Class 0); Peanut <0.10 kU/L (Class 0); SCALLOP <0.10 kU/L (Class 0); SESAME SEED <0.10 kU/L (Class 0); Shrimp <0.10 kU/L (Class 0); Soybean <0.10 kU/L (Class 0); Walnut, (Food) <0.10 kU/L (Class 0); Wheat <0.10 kU/L (Class 0)
== END | disposition home or self-care (01) ==
LOC: BFHLAB 10:49
PROVIDERS: PCP Family Medicine; Visit Provider Family Medicine
DX: L30.9 Dermatitis, unspecified (principal); T78.3XXA Angioneurotic edema, initial encounter; X58.XXXA Exposure to other specified factors, initial encounter; Z51.81 Encounter for therapeutic drug level monitoring
CPT/HCPCS: 86003

== ENCOUNTER 2024-03-28 11:08 | Emergency (ER) | payer MEDICARE, OTHER, SELFPAY ==
[2024-03-28 11:10] VITALS: BP 130/78; PULSE 75; RESP 20; TEMP 36.6; O2SAT 95; BMI 28.5
--- NOTE | 2024-03-28 11:20 | EKG12_ITS ---
Test Reason : Blood Pressure : / mmHG Vent. Rate : 071 BPM Atrial Rate : 071 BPM P-R Int : 152 ms QRS Dur : 082 ms QT Int : 374 ms P-R-T Axes : -06 014 089 degrees QTc Int : 406 ms Sinus rhythm with occasional Premature ventricular complexes and Fusion complexes Nonspecific ST and T wave abnormality Abnormal ECG Confirmed by Christopher Tavarez ([id number]), loan expeditor EDENILSON WOO ([id number]) on 03/29/2024 10:58:51 AM Referred By: Confirmed By:Christopher Tavarez
--- NOTE | 2024-03-28 11:27 | ED.VIS.CHEST ---
HPI <ANDREA Frank - Last Filed: 03/28/24 13:11> History of Present Illness Chief Complaint: Chest Pain Narrative Narrative: Patient presenting today with left-sided chest pain that radiates into her left arm, left side of her neck, and left jaw that she has had intermittently over the past 3 to 4 days. Nothing seems to make her pain better/worse, it is not exertional. She reports that she also experienced palpitations this morning and does have a history of paroxysmal atrial fibrillation, HTN, HLD. She does take Eliquis and is compliant with this.. She has had similar chest pain and palpitations in the past, she reports that she has had these off and on over the past 20 years. She reports that she has had a slight nonproductive cough over the last several days. She denies fevers, chills, shortness of breath, abdominal pain, nausea, and vomiting. PE Risk Factors: Negative for Recent Travel/Surgery, Recent Immobilization or Prior DVT or PE PFSH <ANDREA Frank - Last Filed: 03/28/24 13:11> [facility] Medical History Pneumonia COVID-19 UTI (urinary tract infection) SVT (supraventricular tachycardia) Torticollis Blepharospasm GERD (gastroesophageal reflux disease) Nonrheumatic mitral (valve) prolapse Essential hypertension Ventricular ectopy Paroxysmal atrial fibrillation Home Medications ?Medication ?Instructions ?Recorded ?Last Taken ?Type melatonin 10 mg capsule 10 mg PO QHS 01/15/17 08/07/18 History digoxin 125 mcg (0.125 mg) tablet 125 mcg PO DAILY #90 tabs 03/05/19 Unknown Rx cholecalciferol (vitamin D3) 25 4,000 unit PO DAILY 01/31/20 Unknown History mcg (1,000 unit) capsule apixaban 2.5 mg tablet (Eliquis) 2.5 mg PO BID #60 tabs 01/06/21 Unknown Rx atorvastatin 10 mg tablet 10 mg PO QHS #30 tabs 01/06/21 Unknown Rx metoprolol succinate 50 mg 50 mg PO DAILY 11/07/21 Unknown History tablet,extended release 24 hr magnesium 250 mg tablet 500 mg PO DAILY PRN sleep 11/11/23 Unknown History Allergy/AdvReac Type Severity Reaction Status Date / Time bee venom protein (honey bee) Allergy Anaphylaxis Verified 03/28/24 11:10 latex Allergy Rash Verified 03/28/24 11:10 Penicillins Allergy Rash Verified 03/28/24 11:10 Family History Father CHF (congestive heart failure) Surgical History History of knee surgery History of total hysterectomy History of tonsillectomy and adenoidectomy History of lumpectomy of left breast Social History Smoking Status: Never smoker alcohol intake: never substance use type: does not use caffeine: Yes eating out: rarely or never ROS <ANDREA Frank - Last Filed: 03/28/24 13:11> ROS ED Constitutional Constitutional ED: Denies chills or fever(s) Cardiovascular Cardiovascular: Reports chest pain and palpitations Respiratory/Chest Respiratory/Chest: Denies cough or dyspnea Gastrointestinal Gastrointestinal: Denies abdominal pain, nausea or vomiting Musculoskeletal Musculoskeletal: Denies arthralgias or myalgias Integumentary Denies rash Neurologic Neurologic: Denies paresthesias EXAM <ANDREA Frank - Last Filed: 03/28/24 13:11> Physical Exam Const Vital Signs: 03/28/24 11:10 03/28/24 11:15 03/28/24 12:32 Temperature 97.9 F 97.9 F Temperature Source Temporal Pulse Rate 75 67 Respiratory Rate 20 H 20 H Respiratory Effort Normal Non-Labored Blood Pressure 130/78 H 133/64 H Blood Pressure Mean 95 87 Pulse Ox 95 92 Oxygen Delivery Method Room Air Positive well nourished, well developed and no apparent distress General Appearance ED: well developed HEENT Reports normocephalic and head/scalp atraumatic Mouth ED: Yes moist mucous membranes normal Eyes PERRL and EOMs intact bilaterally Neck full ROM and supple Chest Wall inspection of chest normal Chest Narrative: Midsternal and left-sided chest tenderness to palpation Resp normal respiratory effort and clear to auscultation bilaterally Cardio regular rate and regular rhythm GI soft to palpation, non-tender, non-distended and no masses Back/Spine normal ROM and normal to inspection Extremity normal to inspection and full ROM Neuro oriented x3, CN's II-XII intact bilaterally, moves all extremities, no focal motor deficits and no sensory deficits noted Sensorium / Orientation: awake and alert Psych mental status grossly normal and thought process normal Skin no rashes or lesions noted and no wounds <Max Jacobs MD - Last Filed: 03/28/24 14:37> Physical Exam Const Vital Signs: 03/28/24 11:10 03/28/24 11:15 03/28/24 12:32 Temperature 97.9 F 97.9 F Temperature Source Temporal Pulse Rate 75 67 Respiratory Rate 20 H 20 H Respiratory Effort Normal Non-Labored Blood Pressure 130/78 H 133/64 H Blood Pressure Mean 95 87 Pulse Ox 95 92 Oxygen Delivery Method Room Air MDM <ANDREA Frank - Last Filed: 03/28/24 13:11> [facility] Narrative Medical decision making narrative: Patient presenting today with left-sided chest pain to her left arm and left side of her neck that she has had over the past 3 to 4 days along with intermittent palpitations that started today. She reports that she has had similar chest pain and palpitations off and on over the last 20 years. She has had Holter monitors in the past and does have a history of paroxysmal A-fib. Cardiac workup will be obtained today. She was given aspirin and nitro by EMS. Her CBC overall is unremarkable, BUN 23, creatinine 1.1, kidney function appears consistent with previous labs, troponin is 19. EKG does show occasional PVCs, this would explain her palpitations. Shared decision making was made between myself and the patient, I did offer to obtain a second high-sensitivity troponin, patient would like to go home. I feel that this is reasonable given her symptoms have ongoing for several days. Her chest x-ray does show a right-sided new lung nodule, I did communicate these findings with the patient and recommended that she call her PCP tomorrow to schedule an outpatient CT scan of the chest for further evaluation. Patient is comfortable with this plan and will be discharged home in stable condition, strict return instructions were discussed. Lab Data Attestation: I reviewed the patient's lab results. Labs: Laboratory Results - last 24 hr 03/28/24 10:53 WBC 9.8 RBC 5.06 Hgb 13.5 Hct 43.1 MCV 85.2 MCH 26.7 L MCHC 31.3 L RDW Std Deviation 44.9 H RDW Coeff of Casi 14.6 Plt Count 178 MPV 11.4 Immature Gran % (Auto) 0.400 Neut % (Auto) 66.4 Lymph % (Auto) 20.6 Davidson % (Auto) 9.8 Eos % (Auto) 2.3 Baso % (Auto) 0.5 Absolute Neuts (auto) 6.5 Absolute Lymphs (auto) 2.02 Nucleated RBC % 0 Sodium 136 Potassium 4.1 Chloride 104 Carbon Dioxide 25.0 Anion Gap 7 BUN 23 H Creatinine 1.10 H Estim Creat Clear Calc 39.19 Est GFR (MDRD) Af Amer 61 Est GFR (MDRD) Non-Af 50 L BUN/Creatinine Ratio 20.9 H Glucose 132 H Calcium 8.7 Troponin I High Sens 19 Radiography X-Ray: Read by ED Physician Diagnostic Testing: Clinical Impression(s) from Imaging Studies Chest X-Ray 03/28/24 11:30 IMPRESSION: New 10 mm nodule in the right midlung; consider follow-up or CT. Electronically Signed: Eloise Tubbs MD at 12:10 EDT Reading Location ID and State: [facility] / [place] Tel , Service support , EKG Initial EKG: Comments: 71 bpm, sinus rhythm with PVCs, no ST elevation, interpreted by attending ED physician <Max Jacobs MD - Last Filed: 03/28/24 14:37> [facility] Narrative Medical decision making narrative: Patient presenting today with left-sided chest pain to her left arm and left side of her neck that she has had over the past 3 to 4 days along with intermittent palpitations that started today. She reports that she has had similar chest pain and palpitations off and on over the last 20 years. She has had Holter monitors in the past and does have a history of paroxysmal A-fib. Cardiac workup will be obtained today. She was given aspirin and nitro by EMS. Her CBC overall is unremarkable, BUN 23, creatinine 1.1, kidney function appears consistent with previous labs, troponin is 19. EKG interpreted by ED physician does show occasional PVCs, this would explain her palpitations. Shared decision making was made between myself and the patient, I did offer to obtain a second high-sensitivity troponin, patient would like to go home. I feel that this is reasonable given her symptoms have ongoing for several days. Her chest x-ray does show a right-sided new lung nodule, I did communicate these findings with the patient and recommended that she call her PCP tomorrow to schedule an outpatient CT scan of the chest for further evaluation. Patient is comfortable with this plan and will be discharged home in stable condition, strict return instructions were discussed. History & Record Review Discussion w/independent historian: Patient Additional record(s) reviewed:: Prior outpatient record Lab Data Labs: Laboratory Results - last 24 hr 03/28/24 10:53 WBC 9.8 RBC 5.06 Hgb 13.5 Hct 43.1 MCV 85.2 MCH 26.7 L MCHC 31.3 L RDW Std Deviation 44.9 H RDW Coeff of Casi 14.6 Plt Count 178 MPV 11.4 Immature Gran % (Auto) 0.400 Neut % (Auto) 66.4 Lymph % (Auto) 20.6 Davidson % (Auto) 9.8 Eos % (Auto) 2.3 Baso % (Auto) 0.5 Absolute Neuts (auto) 6.5 Absolute Lymphs (auto) 2.02 Nucleated RBC % 0 Sodium 136 Potassium 4.1 Chloride 104 Carbon Dioxide 25.0 Anion Gap 7 BUN 23 H Creatinine 1.10 H Estim Creat Clear Calc 39.19 Est GFR (MDRD) Af Amer 61 Est GFR (MDRD) Non-Af 50 L BUN/Creatinine Ratio 20.9 H Glucose 132 H Calcium 8.7 Troponin I High Sens 19 Radiography Diagnostic Testing: Clinical Impression(s) from Imaging Studies Chest X-Ray 03/28/24 11:30 IMPRESSION: New 10 mm nodule in the right midlung; consider follow-up or CT. Electronically Signed: Eloise Tubbs MD at 12:10 EDT , EKG Initial EKG: Attestation: I personally reviewed and interpreted this EKG as follows: (Dr. Jacobs) Treatment and Re-Evaluation :: Dr. Jacobs: I have personally performed a face to face assessment of the patient and have reviewed the ANNETTE Note. I performed a substantive portion of the visit including all aspects of the following. My alanis findings include: History is heart palpitations, heart skipping a beat with history of atrial fibrillation x 20 years. 3 days of palpitations and chest pain. Exam is afebrile. Vital signs noted. Regular rate and rhythm with extrasystoles. Lungs clear to auscultation bilaterally. Abdomen soft and nontender with normal active bowel sounds. Medical Decision Making: Check labs. Check EKG. Check chest x-ray. Incidental pulmonary nodule. Requires follow-up, not emergent CT. I do not feel serial enzymes are indicated. She has been having problems with heart palpitations for years. It was felt that she could be discharged to follow-up with her radio frequency engineer. Disposition is discharged in stable condition. Other additions or changes: [None] Discharge Plan Triage Chief Complaint: Chest Pain ED Midlevel Provider: Kimberli Bedoya ED Provider: Max Jacobs Dx/Rx/DC Orders Clinical Impression: Heart palpitations, Chest pain, Incidental pulmonary nodule Instructions: ED Chest Pain, Uncertain Cause, ED Palpitations Prescriptions: No Action cholecalciferol (vitamin D3) 25 mcg (1,000 unit) capsule 4,000 unit PO DAILY magnesium 250 mg tablet 500 mg PO DAILY PRN (Reason: sleep) metoprolol succinate 50 mg tablet extended release 24 hr 50 mg PO DAILY melatonin 10 MG capsule 10 mg PO QHS Patient Comments: sleep Eliquis 2.5 mg Tablet 2.5 mg PO BID Qty: 60 0RF atorvastatin 10 mg tablet 10 mg PO QHS Qty: 30 0RF digoxin 125 mcg tablet 125 mcg PO DAILY Qty: 90 3RF Primary Care Provider: Antonio Garsia Referrals: Antonio Garsia DO [Primary Care Provider] - 3-5 Days Activity Restrictions/Additional Instructions: Please follow-up with your PCP to have an outpatient CT scan of your chest to evaluate a right sided lung nodule. Please return for any worsening of your symptoms. Print Language: Malian Disposition Disposition: Home, Self Care Discharge Date/Time: 03/28/24 12:33
--- NOTE | 2024-03-28 11:30 | RAD_ITS ---
HISTORY: chest pain. TECHNIQUE: XR Chest 2 Views. COMPARISON: 10/11/2022. FINDINGS: CARDIOMEDIASTINAL BORDERS: Cardiac silhouette within normal limits in size. Mediastinal contour unchanged with calcification of the aortic knob. LUNGS: Chronic linear scarring in the left lung base. New 10 mm nodule in the right midlung. PLEURA: No pleural effusion or pneumothorax seen. OSSEOUS STRUCTURES: Degenerative change. RAD/Chest PA and Lateral IMPRESSION: New 10 mm nodule in the right midlung; consider follow-up or CT. Electronically Signed: Eloise Tubbs MD at 12:10 EDT ,
[2024-03-28 11:31] LABS: Absolute Lymphocyte Count 2.02 X10^3/uL (0.83-4.51); Absolute Neutrophil Count 6.5 X10^3/uL (2.0-7.7); Basophil# 0.05 X10^3/uL; Basophil% 0.5 % (0-1); Eosinophil# 0.23 X10^3/uL; Eosinophils% 2.3 % (0-5); Hematocrit 43.1 % (37-47); Hemoglobin 13.5 g/dL (12.0-15.0); Lymphocyte # 2.02 X10^3/ul (0.83-4.51); Lymphocyte % 20.6 % (19-41); Mean Corp Hgb Conc 31.3 g/dL (32-36); Mean Corpuscular Hgb 26.7 pg (27.0-32.0); Mean Corpuscular Volume 85.2 fL (81-99); Mean Platelet Vol. 11.4 fl (6.2-12.0); Monocyte# 0.96 X10^3/uL; Monocyte% 9.8 % (0-10); NRBC Flagged by Analyzer 0 % (0-5); Neutrophil # 6.51 X10^3/uL (2.7-7.7); Neutrophil % 66.4 % (47-70); Platelet Count 178 K/mm3 (150-450); RBC Distribution Width CV 14.6 % (11.6-14.6); RBC Distribution Width SD 44.9 fl (35.1-43.9); Red Blood Count 5.06 M/mm3 (4.2-5.4); White Blood Count 9.8 K/mm3 (4.4-11.0)
[2024-03-28 11:48] LABS: Anion Gap 7 (5-15); BUN 23 mg/dL (7-18); BUN/Creat Ratio 20.9 RATIO (10-20); Calcium,Total 8.7 mg/dL (8.5-10.1); Chloride 104 mmol/L (98-107); EST Glomerular Filtration Rate 50 mL/min (>60); Est Glom Filt Rate - Afr Amer 61 mL/min (>60); Estimated Creatinine Clearance 39.19 ml/min; Glucose 132 mg/dL (74-106); Potassium 4.1 mmol/L (3.5-5.1); Sodium Level 136 mmol/L (136-145); Troponin-I HS (w/2H Reflex) 19 pg/mL (3.0-54.0)
[2024-03-28 12:32] VITALS: BP 133/64; PULSE 67; RESP 20; TEMP 36.6; O2SAT 92
[2024-03-28 13:23] LABS: Reflex Troponin-HS? (from REC) Y
== END 2024-03-28 12:33 | disposition home or self-care (01) ==
PROVIDERS: Physician Assistant; Emergency Provider Emergency Medicine; PCP Family Medicine; Visit Provider Emergency Medicine
DX: I48.0 Paroxysmal atrial fibrillation (principal); R07.9 Chest pain, unspecified; R91.1 Solitary pulmonary nodule; I10 Essential (primary) hypertension; Z79.01 Long term (current) use of anticoagulants; Z79.899 Other long term (current) drug therapy; Z86.16 Personal history of COVID-19
CPT/HCPCS: 71046; 80048; 84484; 85025; 93005; 99285

== ENCOUNTER → 2024-04-06 | Outpatient (CLI) | payer MEDICARE, OTHER, SELFPAY ==
--- NOTE | 2024-04-06 11:32 | CT_ITS ---
INDICATION: Solitary pulmonary nodule EXAMINATION: CT CHEST WITH CONTRAST - CT Chest W/ Contrast Injection TECHNIQUE: Helically acquired images were obtained of the chest following IV contrast. A radiation dose optimization technique was used for this scan. IV Contrast dosage and agent: COMPARISON: 05/25/2020, chest x-ray 03/28/2024 FINDINGS: LUNGS, PLEURA AND LARGE AIRWAYS: Mild bilateral apical scarring. No noncalcified nodule or mass. No pleural effusion or thickening. No pneumothorax. THYROID: No thyroid lesions. HEART AND PERICARDIUM: Heart size is normal. No pericardial effusion. VESSELS: Thoracic aorta is not dilated. No aortic dissection. No obvious central pulmonary embolism although this study was not performed with the pulmonary embolism protocol. MEDIASTINUM AND ANNE: No mediastinal or hilar adenopathy. Esophagus is unremarkable. No hiatal hernia. UPPER ABDOMEN: No acute pathology. BONES: Mild dextroscoliosis thoracic spine. CT/Chest WITH Contrast IMPRESSION: Negative contrast enhanced CT of the chest. No pulmonary nodule as suggested on recent chest x-ray. Electronically Signed: Reji Vital MD at 9:29 EDT ,
[2024-04-06 11:53] VITALS: BP 140/73; PULSE 70; RESP 16; O2SAT 96
--- NOTE | 2024-04-06 12:54 | NURSING ---
Pt told CT techs she felt dehydrated. BARBI Yousif took pt to [facility] to take VS. Pt reports that blood pressure is good for me. Pt drinking tea and eating michelle doones. Advised to sit in chair for a few minutes. BARBI Yousif offered to walk patient out in 10 minutes after checking in another patient. Pt was ok with that plan. After 10 minutes pt was taken to elevator by records technician.
== END | disposition home or self-care (01) ==
LOC: CT 11:26
PROVIDERS: PCP Family Medicine; Referring Provider Family Medicine; Visit Provider Family Medicine
DX: R91.1 Solitary pulmonary nodule (principal)
CPT/HCPCS: 71260; Q9967

== ENCOUNTER → 2025-01-17 | Outpatient (CLI) | payer MEDICARE, OTHER, SELFPAY ==
[2025-01-17 12:28] LABS: Absolute Lymphocyte Count 1.85 X10^3/uL (0.83-4.51); Absolute Neutrophil Count 4.1 X10^3/uL (2.0-7.7); Basophil# 0.06 X10^3/uL; Basophil% 0.9 % (0-1); Eosinophil# 0.19 X10^3/uL; Eosinophils% 2.8 % (0-5); Hematocrit 40.1 % (37-47); Hemoglobin 12.8 g/dL (12.0-15.0); Lymphocyte # 1.85 X10^3/ul (0.83-4.51); Lymphocyte % 27.2 % (19-41); Mean Corp Hgb Conc 31.9 g/dL (32-36); Mean Corpuscular Hgb 28.8 pg (27.0-32.0); Mean Corpuscular Volume 90.3 fL (81-99); Mean Platelet Vol. 10.1 fl (6.2-12.0); Monocyte# 0.61 X10^3/uL; NRBC Flagged by Analyzer 0 % (0-5); Neutrophil # 4.07 X10^3/uL (2.7-7.7); Neutrophil % 59.7 % (47-70); Platelet Count 261 K/mm3 (150-450); RBC Distribution Width CV 14.2 % (11.6-14.6); RBC Distribution Width SD 46.7 fl (35.1-43.9); Red Blood Count 4.44 M/mm3 (4.2-5.4); White Blood Count 6.8 K/mm3 (4.4-11.0)
[2025-01-17 12:48] LABS: Hemoglobin A1c 6.4 % (<=5.6)
[2025-01-17 17:42] LABS: Digoxin Level 0.86 ng/mL (0.00-2.00)
[2025-01-18 15:52] LABS: ALB/GLOB Ratio 1.7 RATIO (0.9-2.4); AST(SGOT) 24 U/L (<=31); Alanine Aminotransfer ALT/SGPT 18 U/L (<=34); Albumin, Serum 4.3 g/dL (3.4-4.8); Alkaline Phosphatase 114 U/L (35-104); Anion Gap 12 (5-15); BUN 27 mg/dL (4-19); BUN/Creat Ratio 24.1 RATIO (10-20); Calcium,Total 9.9 mg/dL (7.6-11.0); Carbon Dioxide 23.8 mmol/L (21.0-32.0); Chloride 104 mmol/L (98-108); Cholesterol 142 mg/dL (<=200); Creatinine, Serum 1.13 mg/dL (0.70-1.20); EST Glomerular Filtration Rate 47 (>60); Globulin 2.5 g/dL (2.2-4.2); Glucose 110 mg/dL (70-99); High Density Lipoprotein 69 mg/dL; Low Density Lipoprotein Calc. 57 mg/dL; Potassium 4.2 mmol/L (3.3-5.1); Protein, Total 6.7 g/dL (5.9-8.4); Sodium Level 141 mmol/L (133-145); Total Bilirubin 0.51 mg/dL (0.00-1.30); Triglycerides 83 mg/dL; Very Low Density Lipoprotein 17 mg/dL (5-40); cholesterol:hdl ratio screen 2.07
[2025-01-18 15:58] LABS: Vitamin D,25 Hydroxy 62.1 ng/mL (30-100)
== END | disposition home or self-care (01) ==
LOC: BFHLAB 10:20
PROVIDERS: PCP Family Medicine; Visit Provider Family Medicine
DX: Z51.81 Encounter for therapeutic drug level monitoring (principal); I48.0 Paroxysmal atrial fibrillation; I65.23 Occlusion and stenosis of bilateral carotid arteries; R73.03 Prediabetes; M81.0 Age-related osteoporosis without current pathological fracture
CPT/HCPCS: 36415; 80053; 80061; 80162; 82306; 83036; 85025

== ENCOUNTER → 2025-01-26 | Outpatient (CLI) | payer MEDICARE, OTHER, SELFPAY ==
--- NOTE | 2025-01-26 14:24 | BD_ITS ---
PROCEDURE: DEXA BONE DENSITY STUDY 01/26/2025 REASON FOR EXAM: F, age 89 y/o . Postmenopausal. TECHNIQUE: DEXA BONE DENSITY STUDY COMPARISON: None FINDINGS: BMD and T-SCORES Lumbar spine: 1.065 g/cm2, T-score 0.4 Levels: L1 through L4 Left femoral neck: 0.699 g/cm2, T-score -1.4 Femoral neck comparison data not recommended for monitoring change. Left total hip: 0.829 g/cm2, T-score -0.9 Right femoral neck: 0.788 g/cm2, T-score -0.5 Femoral neck comparison data not recommended for monitoring change. Right total hip: 0.881 g/cm2, T-score -0.5 The World Health Organization has defined the following categories based on bone density: Normal bone density: T-score equal to or greater than -1.0 Osteopenia: T-score between -1.0 and -2.5 Osteoporosis: T-score equal to or less than -2.5 The patient does meet the pharmacological treatment recommendations for prevention of osteoporosis. BD/Dexa Bone Density Study IMPRESSION: OSTEOPENIA. Recommend follow-up as clinically warranted. Reading Location: [facility]
--- OUTSIDE RECORDS SUMMARY | 2025-01-26 22:35 | XMS RPT_ITS | CCD ---
Author Organization [facility] Care Team Providers Care Secretary Office Clerk Name Role Phone Dr. Wei Garsia Primary Care Provider [phone] Dr. Wei Garsia Referring Provider Pooja MARKETING ADMINISTRATOR, NATALIE Oakes Attending Provider Dr. Wei Garsia Primary Care Provider [phone] Dr. Wei Garsia Referring Provider Dr. Shon Jordan Attending Provider [phone] Dr. Wei Garsia Primary Care Provider [phone] Dr. Wei Garsia Referring Provider Pooja MARKETING ADMINISTRATOR, NATALIE Oakes Attending Provider [phone] Wei Garsia Primary Care Provider Wei Garsia Primary Care Provider Dr. Wei Garsia Primary Care Provider [phone] Wei Garsia Referring Provider Dr. Christopher Tavarez Attending Provider [phone] Wei Garsia Primary Care Provider GARRET SANCHEZ Attending Unavailable WEI GARSIA Primary Care Unavailable GARRET SANCHEZ Attending Unavailable WEI GARSIA Primary Care Unavailable GARRET SANCHEZ Attending Unavailable WEI GARSIA Primary Care Unavailable WEI GARSIA Primary Care Unavailable GARRET SANCHEZ Attending Unavailable Dr. Wei Garsia DO Primary Care Provider Dr. Wei Garsia DO Attending Provider [phone] Wei Garsia Attending Unavailable Wei Garsia Primary Care Unavailable AnuragMax raphael Attending Unavailable Wei Garsia Primary Care Unavailable Wei Garsia Attending Unavailable Wei Garsia Referring Unavailable Wei Garsia Primary Care Unavailable Wei Garsia Attending Unavailable Wei Garsia Referring Unavailable Wei Garsia Primary Care Unavailable Allergies Allergy Classification Reported Allergen(s) Allergy Type Date of Onset Reaction(s) Facility (9 sources) Latex Allergy to substance 11-07-2021 Rash [facility] (20 sources) Penicillins; Translations: [Penicillins] Allergy to substance 11-07-2021 Rash [facility] (11 sources) bee venom protein (honey bee) Allergy to substance 11-07-2021 Anaphylaxis [facility] Comment on above: also wasps (1 source) Latex Drug allergy (disorder) 03-28-2024 [facility] (1 source) bee venom protein (honey bee) Drug allergy (disorder) 03-28-2024 [facility] Medications Current Medications Medication Drug Class(es) Dates Sig (Normalized) Sig (Original) apixaban 2.5 mg oral tablet (20 sources) Factor Xa Inhibitor Start: 01-06-2021 take 1 tablet by mouth twice daily Apixaban (Eliquis) 2.5 mg Tablet Active 2.5 mg PO TWICE A DAY 60 January 06, 2021 12:00am atorvastatin 10 mg oral tablet (20 sources) HMG-CoA Reductase Inhibitor Start: 01-06-2021 take 1 tablet by mouth at bedtime Atorvastatin 10 mg tablet Active 10 mg PO AT BEDTIME 30 January 06, 2021 12:00am cholecalciferol 0.025 mg oral capsule (20 sources) Vitamin D Start: 01-31-2020 take 1 capsule by mouth once daily Cholecalciferol (Vitamin D3) 25 mcg (1,000 unit) capsule Active 4000 U PO DAILY January 31, 2020 3:05pm Start: 01-31-2020 take 4 capsules by m outh once daily cholecalciferol (vitamin D3) 1,000 unit capsule Active 4000 UNIT PO DAILY January 31, 2020 3:05pm Start: 04-28-2019 End: 01-31-2020 take 2 capsules by mouth once daily Cholecalciferol (Vitamin D3) 1,000 unit capsule Discontinued 2000 U PO DAILY April 28, 2019 1:46pm January 31, 2020 3:06pm Start: 04-28-2019 End: 01-31-2020 take 2000 [IU] by mouth once daily Cholecalciferol (Vitamin D3) Discontinued 2000 UNIT PO DAILY April 28, 2019 1:46pm January 31, 2020 3:06pm Start: 11-05-2018 End: 04-28-2019 take 1 capsule by mouth once daily Cholecalciferol (Vitamin D3) 1,000 unit capsule Discontinued 1000 U PO DAILY November 05, 2018 12:00am April 28, 2019 1:47pm Start: 11-04-2018 End: 11-05-2018 take 1 capsule by mouth once daily Cholecalciferol (Vitamin D3) 5,000 unit capsule Discontinued 5000 U PO DAILY November 04, 2018 12:00am November 05, 2018 11:02am Start: 12-06-2013 End: 11-04-2018 take 1 tablet by mouth once daily Cholecalciferol (Vitamin D3) 2,000 UNIT tablet Discontinued 2000 U PO DAILY December 06, 2013 12:00am November 04, 2018 2:43pm Magnesium (20 sources) Start: 11-11-2023 take 2 tablets by mo [facility] once daily as needed for sleep Magnesium 250 mg tablet Active 500 mg PO DAILY as needed for sleep November 11, 2023 1:49pm Start: 11-11-2023 take 500 mg by mouth once radha y Magnesium Active 500 MG PO DAILY November 11, 2023 1:49pm Start: 01-31-2020 End: 11-11-2023 take 2 tablets by mouth once daily Magnesium 250 mg tablet Discontinued 500 mg PO DAILY January 31, 2020 3:06pm November 11, 2023 1:50pm Start: 01-31-2020 End: 11-11-2023 take 500 mg by mouth once daily Magnesium Discontinued 500 MG PO DAILY January 31, 2020 3:06pm November 11, 2023 1:50pm Start: 01-31-2020 take 500 mg by mouth once radha y Magnesium Active 500 MG PO DAILY January 31, 2020 2:06pm Start: 01-31-2020 take 500 mg by mouth once radha y Magnesium Active 500 MG PO DAILY January 31, 2020 3:06pm Start: 11-05-2018 End: 01-31-2020 take 500 mg by mouth once daily Magnesium Discontinued 500 MG PO DAILY November 05, 2018 11:04am January 31, 2020 3:06pm Start: 11-05-2018 End: 01-31-2020 take 2 tablets by mouth once daily Magnesium 250 mg tablet Discontinued 500 mg PO DAILY November 05, 2018 12:00am January 31, 2020 3:06pm Start: 11-05-2018 End: 01-31-2020 take 500 mg by mouth once daily Magnesium Discontinued 500 MG PO DAILY November 05, 2018 12:00am January 31, 2020 3:06pm Start: 11-05-2018 End: 01-31-2020 take 500 mg by mouth once daily Magnesium Discontinued 500 MG PO DAILY November 04, 2018 11:00pm January 31, 2020 2:06pm melatonin 10 mg oral capsule (20 sources) Start: 01-15-2017 take 1 capsule by mouth at bedtime Melatonin 10 MG capsule Active 10 mg PO AT BEDTIME January 15, 2017 12:00am melatonin 10 MG tablet Take by mouth. Active 24 hr metoprolol succinate 50 mg extended release oral tablet (20 sources) beta-Adrenergic Vishal Start: 11-07-2021 take 1 tablet by mouth once daily Metoprolol Succinate 50 mg tablet extended release 24 hr Active 50 mg PO DAILY November 07, 2021 12:00am Start: 01-22-2021 End: 11-07-2021 Metoprolol Succinate 25 mg t ablet extended release 24 hr Discontinued 50 mg PO DAILY February 20, 2021 2:02pm November 07, 2021 10:29am Start: 01-22-2021 End: 11-07-2021 take 50 mg by mouth once daily Metoprolol Succinate Di scontinued 50 MG PO DAILY February 20, 2021 2:02pm November 07, 2021 10:29am Start: 12-06-2013 End: 01-22-2021 take 1 tablet by mouth once daily Metoprolol Succinate 25 mg tablet extended release 24 hr Discontinued 25 mg PO DAILY January 20, 2020 8:02am January 22, 2021 9:27am End: 01-02-2023 take 1 tablet by mouth every twenty-four hours metoprolol succinate XL (Toprol-XL) 25 MG 24 hr tablet Take by mouth. Do not crush or chew. 0 01/02/2023 Discontinued (Therapy completed) Multiple Vitamin (multivitamin) tablet (17 sources) take 1 tablet by yashira th in the morning Multiple Vitamin (multivitamin) tablet Take 1 tablet by mouth in the morning. Active take 1 tablet by mouth in the mo rning Multiple Vitamin (multivitamin) tablet Take 1 tablet by mouth in the morning. 0 Active Multivitamin preparation (8 sources) Start: 01-06-2021 take 1 tablet by mouth once daily Multivitamin Active 1 TABLET PO DAILY January 06, 2021 9:27am Start: 01-06-2021 take 1 tablet by yashira th once daily Multivitamin Active 1 TABLET PO DAILY January 06, 2021 12:00am Start: 01-06-2021 take 1 tablet by yashira th once daily Multivitamin Active 1 TABLET PO DAILY January 05, 2021 11:00pm Completed/Discontinued Medications Medication Drug Class(es) Dates Sig (Normalized) Sig (Original) aspirin 81 mg delayed release oral tablet (20 sources) Platelet Aggregation Inhibitor, Nonsteroidal Anti-inflammatory Drug Start: 01-06-2021 End: 01-02-2023 take 1 tablet by mouth once daily Aspirin 81 mg tablet,delayed release (DR/EC) Discontinued 81 mg PO DAILY January 06, 2021 12:00am November 07, 2021 10:28am Start: 12-06-2013 End: 11-08-2020 take 1 tablet by mouth once daily Aspirin 81 MG tablet,chewable Discontinued 81 mg PO DAILY@0800 December 06, 2013 12:00am November 08, 2020 1:01pm azithromycin 250 mg oral tablet (9 sources) Macrolide Antimicrobial Start: 08-07-2018 End: 08-13-2018 take 1 tablet by mouth once daily Azithromycin 250 MG tablet Discontinued 250 mg PO DAILY August 07, 2018 1:00am August 13, 2018 9:43am onabotulinumtoxina 100 unt injection (20 sources) Acetylcholine Release Inhibitor Start: 01-12-2025 End: 01-12-2025 onabotulinumtoxinA (Botox) injection 300 Units Start: 01-12-2025 End: 01-12-2025 inject 300 [IU] by intramuscular injection once 300 Units, IntraMUSCular, Once, On Fri01/12/25 at 1100, For 1 dose Start: 10-13-2024 End: 10-13-2024 onabotulinumtoxinA (Botox) i njection 300 Units Start: 10-13-2024 End: 10-13-2024 inject 300 [IU] by intramuscular injection once 300 Units, IntraMUSCular, Once, On Fri10/13/24 at 1430, For 1 dose Start: 07-07-2024 End: 07-07-2024 onabotulinumtoxinA (Botox) i njection 300 Units Start: 07-07-2024 End: 07-07-2024 inject 300 [IU] by intramuscular injection once 300 Units, IntraMUSCular, Once, On Fri07/07/24 at 0830, For 1 dose Start: 03-03-2024 End: 03-03-2024 onabotulinumtoxinA (Botox) i njection 300 Units Start: 03-03-2024 End: 03-03-2024 inject 300 [IU] by intramuscular injection once 300 Units, IntraMUSCular, Once, On Fri03/03/24 at 1515, For 1 dose Start: 12-03-2023 End: 12-03-2023 onabotulinumtoxinA (Botox) i njection 300 Units Start: 07-09-2023 End: 07-09-2023 onabotulinumtoxinA (Botox) i njection 300 Units Start: 07-09-2023 End: 07-09-2023 onabotulinumtoxinA (Botox) i njection 300 Units Start: 04-09-2023 End: 04-09-2023 onabotulinumtoxinA (Botox) i njection 300 Units Start: 01-01-2023 End: 01-01-2023 onabotulinumtoxinA (Botox) i njection 200 Units Start: 10-02-2022 End: 10-02-2022 onabotulinumtoxinA (Botox) i njection 300 Units onabotulinumtoxi nA (Botox) 100 units injection Inject into the shoulder, thigh, or buttocks Once. Active clindamycin 150 mg oral capsule (9 sources) Lincosamide Antibacterial Start: 08-25-2020 End: 11-08-2020 take 1 capsule by mouth four times daily Clindamycin Hcl 150 MG capsule Discontinued 150 mg PO 4 TIMES DAILY August 25, 2020 1:00am November 08, 2020 1:01pm dexamethasone 6 mg oral tablet (9 sources) Corticosteroid Start: 05-27-2020 End: 06-03-2020 take 1 tablet by mouth once daily Dexamethasone 6 MG tablet Discontinued 6 mg PO DAILY 7 May 27, 2020 12:00am June 02, 2020 12:00am June 03, 2020 12:03am digoxin 0.125 mg oral tablet (20 sources) Cardiac Glycoside Start: 12-06-2013 End: 03-05-2019 take 1 tablet by mouth once daily Digoxin 125 mcg tablet Discontinued 125 ug PO DAILY March 04, 2019 10:36am March 05, 2019 5:15pm ergocalciferol 1.25 mg oral capsule (3 sources) Provitamin D2 Compound End: 01-02-2023 take 1 capsule by mouth every week ergocalciferol (Vitamin D-2) 1.25 MG (66416 UT) capsule Take 1.25 mg by mouth 1 (one) time per week. 0 01/02/2023 Discontinued (Therapy completed) 12 hr guaiFENesin 1200 mg extended release oral tablet (9 sources) Start: 05-27-2020 End: 11-08-2020 take 1 tablet by mouth twice daily Guaifenesin 1,200 MG tablet extended release 12hr Discontinued 1200 mg PO TWICE A DAY May 27, 2020 12:00am November 08, 2020 1:01pm levoFLOXacin 750 mg oral tablet (9 sources) Quinolone Antimicrobial Start: 08-13-2018 End: 11-04-2018 Levofloxacin 750 MG tablet Discontinued 750 mg PO Q48@0600 4 August 13, 2018 1:00am November 04, 2018 2:43pm lisinopril 10 mg oral tablet (12 sources) Angiotensin Converting Enzyme Inhibitor Start: 01-31-2020 End: 11-08-2020 take 1 tablet by mouth once daily Lisinopril 10 mg tablet Discontinued 10 mg PO DAILY January 31, 2020 12:00am November 08, 2020 1:01pm End: 01-02-2023 lisinopril 5 MG tablet Take by mouth daily. 0 01/02/2023 Discontinued (Therapy completed) mecobalamin 1 mg chewable tablet (9 sources) Start: 01-31-2020 End: 03-28-2024 take 1 tablet by mouth once daily Mecobalamin (Vitamin B12) 1,000 mcg tablet,chewable Discontinued 1000 ug PO DAILY January 31, 2020 12:00am March 28, 2024 11:20am Multivitamin Tablet (1 source) Start: 01-06-2021 End: 03-28-2024 Multivitamin Tablet Discontinued 1 {tbl} PO DAILY January 06, 2021 12:00am March 28, 2024 11:20am [place] 3-Rgx-Kqd-Fish Oil (8 sources) Start: 08-09-2018 End: 04-28-2019 take 500 mg by mouth once daily [place] 5-Biu-Yfo-Fish Oil Discontinued 500 MG PO DAILY August 09, 2018 1:40pm April 28, 2019 1:47pm Start: 08-09-2018 End: 04-28-2019 take 500 mg by mouth once daily [place] 5-Frd-Uma-Fish Oil Discontinued 500 MG PO DAILY August 09, 2018 1:00am April 28, 2019 1:47pm Start: 08-09-2018 End: 04-28-2019 take 500 mg by mouth once daily [place] 8-Cng-Fij-Fish Oil Discontinued 500 MG PO DAILY August 09, 2018 12:00am April 28, 2019 12:47pm [place] 0-Jzu-Pzb-Fish Oil 500 MG capsule,delayed release(DR/EC) (1 source) Start: 08-09-2018 End: 04-28-2019 take 1 capsule by mouth once daily [place] 9-Kxh-Jmr-Fish Oil 500 MG capsule,delayed release(DR/EC) Discontinued 500 mg PO DAILY August 09, 2018 1:00am April 28, 2019 1:47pm pantoprazole 40 mg delayed release oral tablet (12 sources) Proton Pump Inhibitor Start: 01-31-2020 End: 01-02-2023 take 1 tablet by mouth once daily Pantoprazole 40 mg tablet,delayed release (DR/EC) Discontinued 40 mg PO DAILY January 31, 2020 12:00am November 07, 2021 10:30am predniSONE 20 mg oral tablet (12 sources) Start: 12-23-2019 End: 01-31-2020 take 2 tablets by mouth once daily at mealtime Prednisone 20 MG tablet Discontinued 40 mg PO DAILY December 23, 2019 12:00am January 31, 2020 3:06pm With Food Start: 12-23-2019 End: 01-31-2020 take 40 mg by mouth once daily at mealtime Prednisone Discontinued 40 MG PO DAILY December 23, 2019 12:00am January 31, 2020 3:06pm With Food End: 01-02-2023 predniSONE (Deltasone) 20 MG tablet Take by mouth. 0 01/02/2023 Discontinued (Therapy completed) sulfamethoxazole 800 mg / trimethoprim 160 mg oral tablet (3 sources) Dihydrofolate Reductase Inhibitor Antibacterial, Sulfonamide Antimicrobial End: 01-02-2023 sulfamethoxazole-trimethopri m (Bactrim DS) 800-160 MG tablet Take by mouth. 0 01/02/2023 Discontinued (Therapy completed) Problems Active Problems Problem Classification Problem Date Documented Date Episodic/Chronic Cardiac dysrhythmias (20 sources) Supraventricular tachycardia; Translations: [Supraventricular tachycardia] Chronic Comment on above: Patient is in normal sinus rhythm in the office today on her EKG. She denies any syncope or near syncope recently. She has been aerobically active. She is tolerating Eliquis without incident. She had been started on this after a TIA in 2020. The patient continues on a combination of Lanoxin 0.125 mg milligrams daily and metoprolol succinate 50 mg daily. Cardiac dysrhythmias (1 source) Palpitations; Translations: [Palpitations] 04-05-2024 Episodic Disorders of lipid metabolism (12 sources) Hyperlipidemia; Translations: [Hyperlipidemia, unspecified] 06-07-2022 Chronic Comment on above: Lipids are managed t o the primary service. Esophageal disorders (9 sources) Gastroesophageal reflux disease; Translations: [Gastro-esophageal reflux disease without esophagitis] 05-25-2020 Chronic Essential hypertension (14 sources) Essential hypertension; Translations: [Essential (primary) hypertension] Chronic Comment on above: Blood pressure is we ll-controlled on her current medical therapy and managed to the primary service. Heart valve disorders (12 sources) Mitral valve prolapse; Translations: [Nonrheumatic mitral (valve) prolapse] Chronic Occlusion or stenosis of precerebral arteries (9 sources) Left carotid artery stenosis; Translations: [Occlusion and stenosis of left carotid artery] 02-20-2021 Chronic Osteoporosis (1 source) Age-related osteoporosis without current pathological fracture; Translations: [Age-related osteoporosis without current pathological fracture] Onset: 01-20-2025 Chronic Other aftercare (1 source) Encounter for therapeutic drug level monitoring; Translations: [Encounter for therapeutic drug level monitoring] Onset: 01-20-2025 Episodic Other hereditary and degenerative nervous system conditions (9 sources) Dystonia; Translations: [Dystonia, unspecified] 05-25-2020 Chronic Other hereditary and degenerative nervous system conditions (4 sources) Blepharospasm; Translations: [Blepharospasm] Onset: 07-07-2024 Chronic Other hereditary and degenerative nervous system conditions (10 sources) Isolated cervical dystonia; 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-2023 Chronic Other hereditary and degenerative nervous system conditions (10 sources) Bilateral blepharospasm; 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-2024 Chronic Other hereditary and degenerative nervous system conditions (2 sources) Spasmodic torticollis; 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: 01-12-2025 Chronic Other hereditary and degenerative nervous system conditions (1 source) Blepharospasm; Translations: [Blepharospasm] Onset: 07-07-2024 Chronic Other lower respiratory disease (9 sources) Dyspnea; Translations: [Dyspnea, unspecified] 01-05-2021 Episodic Other lower respiratory disease (1 source) Solitary nodule of lung; Translations: [Solitary pulmonary nodule] 04-05-2024 Episodic Other upper respiratory disease (9 sources) Anterior epistaxis; Translations: [Epistaxis] 08-26-2020 Episodic Pneumonia (except that caused by tuberculosis or sexually transmitted disease) (9 sources) Pneumonia; Translations: [Pneumonia, unspecified organism] 01-05-2021 Episodic Transient cerebral ischemia (9 sources) Transient cerebral ischemia; Translations: [Transient cerebral ischemic attack, unspecified] 01-05-2021 Chronic Unclassified (2 sources) Procedure; Translations: [Procedure] Onset: 03-03-2024 Urinary tract infections (9 sources) Urinary tract infectious disease; Translations: [Urinary tract infection, site not specified] 01-05-2021 Episodic Varicose veins of lower extremity (9 sources) Varicose veins of lower extremity; Translations: [Asymptomatic varicose veins of unspecified lower extremity] 02-20-2021 Episodic Viral infection (9 sources) Disease caused by 2019-nCoV; Translations: [COVID-19] 01-05-2021 Episodic Past or Other Problems Problem Classification Problem Date Documented Da te Episodic/Chronic Nonspecific chest pain (2 sources) Chest pain; Translations: [Chest pain, unspecified] Onset: 04-20-2024 04-05-2024 Episodic Other lower respiratory disease (1 source) Solitary pulmonary nodule; Translations: [Solitary pulmonary nodule] Onset: 04-27-2024 Episodic Spondylosis; intervertebral disc disorders; other back problems (10 sources) Torticollis; Translations: [Torticollis] Onset: 07-07-2024 07-07-2024 Episodic Results Test Name Value Interpretation Reference Range [facility] 01-18-2025 Albumin [Mass/Vol] 4.3 g/dL Normal 3.4-4.[address] [facility] Comment on above: Performed By: #### L 500.2500, L100.0100, L501.5425 #### [facility] [address] [place], [address] Albumin/Globulin [Mass ratio] 1.7 {ratio} Normal 0.9-2.4 [facility] Comment on above: Performed By: #### L 500.2500, L100.0100, [id number] #### [facility] [address] [place], [address] ALK PHOS 114 U/L High 35-104 [facility] Comment on above: Performed By: #### L 500.2500, L100.0100, [id number] #### [facility] [address] [place], [address] ALT [Catalytic activity/Vol] 18 U/L Normal <=34 [facility] Comment on above: Performed By: #### L 500.2500, L100.0100, [id number] #### [facility] [address] [place], [address] AST [Catalytic activity/Vol] 24 U/L Normal <=31 [facility] Comment on above: Performed By: #### L 500.2500, L100.0100, [id number] #### [facility] [address] [place], [address] Bilirubin [Mass/Vol] 0.51 mg/dL Normal 0.00-1.30 [facility] Comment on above: Performed By: #### L 500.2500, L100.0100, [id number] #### [facility] [address] [place], [address] BUN/CRE 24.1 RATIO High 10-20 [facility] Comment on above: Performed By: #### L 500.2500, L100.0100, [id number] #### [facility] [address] [place], [address] Calcium [Mass/Vol] 9.9 mg/dL Normal 7.6-11.[address] [facility] Comment on above: Performed By: #### L 500.2500, L100.0100, [id number] #### [facility] [address] [place], [address] Chloride [Moles/Vol] 104 mmol/L Normal 98-108 [facility] Comment on above: Performed By: #### L 500.2500, L100.0100, [id number] #### [facility] [address] [place], [address] CO2 [Moles/Vol] 23.8 mmol/L Normal 21.0-32.0 [facility] Comment on above: Performed By: #### L 500.2500, L100.0100, [id number] #### [facility] [address] [place], [address] Creatinine [Mass/Vol] 1.13 mg/dL Normal 0.70-1.20 [facility] Comment on above: Performed By: #### L 500.2500, L100.0100, [id number] #### [facility] [address] [place], [address] GAP 12 Normal 5-15 [facility] Comment on above: Performed By: #### L 500.2500, L100.0100, [id number] #### [facility] [address] [place], [address] GFR/1.73 sq M.predicted among non-blacks MDRD (S/P/Bld) [Vol rate/Area] 47 mL/min/{1.73_m2} Low >60 [facility] Comment on above: Result Comment: mL/m in/1.73m2 CKD-EPI Creatinine Equation (2020) Performed By: #### L 500.2500, L100.0100, [id number] #### [facility] [address] [place], [address] Globulin (S) [Mass/Vol] 2.5 g/dL Normal 2.2-4.2 [facility] Comment on above: Performed By: #### L 500.2500, L100.0100, [id number] #### [facility] [address] [place], [address] Glucose [Mass/Vol] 110 mg/dL High 70-[address] [facility] Comment on above: Performed By: #### L 500.2500, L100.0100, [id number] #### [facility] [address] [place], [address] Potassium [Moles/Vol] 4.2 mmol/L Normal 3.3-5.1 [facility] Comment on above: Performed By: #### L 500.2500, L100.0100, [id number] #### [facility] [address] [place], [address] Sodium [Moles/Vol] 141 mmol/L Normal 133-[address] [facility] Comment on above: Performed By: #### L 500.2500, L100.0100, [id number] #### [facility] [address] [place], [address] T PROT 6.7 g/dL Normal 5.9-8.4 [facility] Comment on above: Performed By: #### L 500.2500, L100.0100, [id number] #### [facility] [address] [place], [address] Urea nitrogen [Mass/Vol] 27 mg/dL High 4-19 [facility] Comment on above: Performed By: #### L 500.2500, L100.0100, [id number] #### [facility] [address] [place], [address] Lipid Profileon 01-18-2025 CHOL:HDL 2.07 Normal [facility] Comment on above: Performed By: #### L 500.2500, L100.0100, [id number] #### [facility] [address] [place], [address] Cholesterol [Mass/Vol] 142 mg/dL Normal <=200 [facility] Comment on above: Result Comment: Chol esterol level, Desirable <200 mg/dL Borderline high cholesterol 200-239 mg/dL High cholesterol >=240 mg/dL Recommendations of the NCEP Adult Treatment Panel for the following risk-cutoff thresholds for the [place] population. Performed By: #### L 500.2500, L100.0100, L501.5425 #### [facility] [address] [place], [address] Cholesterol in HDL [Mass/Vol] 69 mg/dL Normal [facility] Comment on above: Result Comment: Hailee onal Cholesterol Education Program (NCEP) guidelines: <40 mg/dL: Low HDL-cholesterol (major risk factor for CHD) >= 60 mg/dL: High HDL-cholesterol (negative risk factor for CHD) HDL-cholesterol is affected by a number of factors, e.g. smoking, exercise, hormones, sex and age. Performed By: #### L 500.2500, L100.0100, L501.5425 #### [facility] [address] [place], [address] Cholesterol in LDL [Mass/Vol] 57 mg/dL Normal [facility] Comment on above: Result Comment: Bord nmihib=431-964 mg/dL Higher Tgpi=306 mg/dL or greater Performed By: #### L 500.2500, L100.0100, L501.5425 #### [facility] [address] [place], [address] Cholesterol in VLDL [Mass/Vol] 17 mg/dL Normal 5-40 [facility] Comment on above: Performed By: #### L 500.2500, L100.0100, L501.5425 #### [facility] [address] [place], [address] Triglyceride [Mass/Vol] 83 mg/dL Normal [facility] Comment on above: Result Comment: The drugs N-Acetylcysteine and Metamizole may falsely depress this assay. Normal range: <150 mg/dL Borderline High: 150-199 mg/dL High: 200-499 mg/dL Very High: >500 mg/dL Performed By: #### L 500.2500, L100.0100, L501.5425 #### [facility] [address] [place], [address] Vitamin D,25 Hydroxyon 01-18 Vitamin D 25-OH 62.1 ng/mL Normal 30-100 [facility] Comment on above: Result Comment: Pamela min D Status Deficiency: <20 ng/mL (50nmol/L) Insufficiency: 20-30 ng/mL (50-75 nmol/L) Sufficiency: 30-100 ng/mL (75-250 nmol/L) Toxicity: >100 ng/mL (>250 nmol/L) Performed By: #### L 500.2500, L100.0100, L501.5425 #### [facility] [address] [place], [address] Absolute lymphocyte countOrd ered By: Wei Garsia on 01-17-2025 Lymphocytes Auto (Unsp spec) [#/Vol] 1.85 10*3/uL 0.83-4.51 [facility] Absolute neutrophil countOrd ered By: Wei Garsia on 01-17-2025 Neutrophils (Bld) [#/Vol] 4.1 10*3/uL 2.0-7.7 [facility] Anion gap in Serum or Plasma Ordered By: Wei Garsia on 01-17-2025 Anion gap [Moles/Vol] 12 mmol/L 5-15 [facility] Automated lymphocyte count a s percentage of total leukocytesOrdered By: Wei Garsia on 01-17-2025 Lymphocytes/100 WBC Auto (Unsp spec) 27.2 % 19-41 [facility] BUN/creatinine ratioOrdered By: Wei Garsia on 01-17-2025 Urea nitrogen/Creatinine [Mass ratio] 24.1 mg/mg High 10-20 [facility] Basophil percentageOrdered B y: Wei Garsia on 01-17-2025 Basophils/100 WBC (Bld) 0.9 % 0-1 [facility] Bilirubin, totalOrdered By: Wei Garsia on 01-17-2025 Bilirubin [Mass/Vol] 0.51 mg/dL 0.00-1.30 [facility] CBC W/Diff, Automatedon 01-02 Absolute Lymph 1.85 X10 3/uL Normal 0.83-4.51 [facility] Comment on above: Performed By: #### L 100.0100, L500.4050, L506.1001, L500.4100, L501.7510, L501.9985 #### [facility] [address] [place], [address] Absolute Neut 4.1 X10 3/uL Normal 2.0-7.7 [facility] Comment on above: Performed By: #### L 100.0100, L500.4050, L506.1001, L500.4100, L501.7510, L501.9985 #### [facility] [address] [place], [address] Basophils/100 WBC (Bld) 0.9 % Normal 0-1 [facility] Comment on above: Performed By: #### L 100.0100, L500.4050, L506.1001, L500.4100, L501.7510, L501.9985 #### [facility] [address] [place], [address] Eosinophils/100 WBC (Bld) 2.8 % Normal 0-5 [facility] Comment on above: Performed By: #### L 100.0100, L500.4050, L506.1001, L500.4100, L501.7510, L501.9985 #### [facility] [address] [place], [address] Erythrocyte distribution width (RBC) [Ratio] 14.2 % Normal 11.6-14.6 [facility] Comment on above: Performed By: #### L 100.0100, L500.4050, L506.1001, L500.4100, L501.7510, L501.9985 #### [facility] [address] [place], [address] Hematocrit (Bld) [Volume fraction] 40.1 % Normal 37-47 [facility] Comment on above: Performed By: #### L 100.0100, L500.4050, L506.1001, L500.4100, L501.7510, L501.9985 #### [facility] [address] [place], [address] Hemoglobin (Bld) [Mass/Vol] 12.8 g/dL Normal 12.0-15.0 [facility] Comment on above: Performed By: #### L 100.0100, L500.4050, L506.1001, L500.4100, L501.7510, L501.9985 #### [facility] [address] [place], [address] IG% 0.400 Normal 0.0-0.9 [facility] Comment on above: Result Comment: IG% - Immature Granulocytes (promyelocytes, myelocytes and metamyelocytes) > 1% indicates that a LEFT SHIFT is Present. Performed By: #### L 100.0100, L500.4050, L506.1001, L500.4100, L501.7510, L501.9985 #### [facility] [address] [place], [address] Lymphocytes/100 WBC (Bld) 27.2 % Normal 19-41 [facility] Comment on above: Performed By: #### L 100.0100, L500.4050, L506.1001, L500.4100, L501.7510, L501.9985 #### [facility] [address] [place], [address] MCH (RBC) [Entitic mass] 28.8 pg Normal 27.0-32.0 [facility] Comment on above: Performed By: #### L 100.0100, L500.4050, L506.1001, L500.4100, L501.7510, L501.9985 #### [facility] [address] [place], [address] MCHC (RBC) [Mass/Vol] 31.9 g/dL Low 32-36 [facility] Comment on above: Performed By: #### L 100.0100, L500.4050, L506.1001, L500.4100, L501.7510, L501.9985 #### [facility] [address] [place], [address] MCV (RBC) [Entitic vol] 90.3 fL Normal 81-99 [facility] Comment on above: Performed By: #### L 100.0100, L500.4050, L506.1001, L500.4100, L501.7510, L501.9985 #### [facility] [address] [place], [address] Monocytes/100 WBC (Bld) 9.0 % Normal 0-10 [facility] Comment on above: Performed By: #### L 100.0100, L500.4050, L506.1001, L500.4100, L501.7510, L501.9985 #### [facility] [address] [place], [address] Neutrophils/100 WBC (Bld) 59.7 % Normal 47-70 [facility] Comment on above: Performed By: #### L 100.0100, L500.4050, L506.1001, L500.4100, L501.7510, L501.9985 #### [facility] [address] [place], [address] Nucleated RBC (Bld) [#/Vol] 0 10*3/uL Normal 0-5 [facility] Comment on above: Performed By: #### L 100.0100, L500.4050, L506.1001, L500.4100, L501.7510, L501.9985 #### [facility] [address] [place], [address] Platelet mean volume (Bld) [Entitic vol] 10.1 fL Normal 6.2-12.0 [facility] Comment on above: Performed By: #### L 100.0100, L500.4050, L506.1001, L500.4100, L501.7510, L501.9985 #### [facility] [address] [place], [address] Platelets (Bld) [#/Vol] 261 10*3/uL Normal 150-450 [facility] Comment on above: Performed By: #### L 100.0100, L500.4050, L506.1001, L500.4100, L501.7510, L501.9985 #### [facility] [address] [place], [address] RBC (Bld) [#/Vol] 4.44 10*6/uL Normal 4.2-5.4 [facility] Comment on above: Performed By: #### L 100.0100, L500.4050, L506.1001, L500.4100, L501.7510, L501.9985 #### [facility] [address] [place], [address] RDW SD 46.7 fl High 35.1-43.9 [facility] Comment on above: Performed By: #### L 100.0100, L500.4050, L506.1001, L500.4100, L501.7510, L501.9985 #### [facility] [address] [place], [place], [address] WBC (Bld) [#/Vol] 6.8 10*3/uL Normal 4.4-11.[address] [facility] Comment on above: Performed By: #### L 100.0100, L500.4050, L506.1001, L500.4100, L501.7510, L501.9985 #### [facility] [address] [facility] [place], [place], [address] Calculated very low density lipoprotein (VLDL) cholesterol measurementOrdered By: Wei Garsia on 01-17-2025 Calculated very low density lipoprotein (VLDL) cholesterol measurement 17 mg/dL 5-40 [facility] Carbon dioxide, total [Moles /volume] in Central venous bloodOrdered By: Wei Garsia on 01-17-2025 CO2 [Moles/Vol] 23.8 mmol/L 21.0-32.0 [facility] Chloride assayOrdered By: Stefan Garsia on 01-17-2025 Chloride [Moles/Vol] 104 mmol/L 98-108 [facility] Digoxin Levelon 01-17-2025 DIG 0.86 ng/mL Normal 0.00-2.00 [facility] Comment on above: Performed By: #### L 100.0100, L500.4050, L506.1001, L500.4100, L501.7510, L501.9985 #### [facility] [address] [place], [place], [address] Eosinophil percentageOrdered By: Wei Garsia on 01-17-2025 Eosinophils/100 WBC (Bld) 2.8 % 0-5 [facility] Erythrocyte distribution wid th ratioOrdered By: Wei Garsia on 01-17-2025 Erythrocyte distribution width (RBC) [Ratio] 14.2 % 11.6-14.6 [facility] Erythrocyte distribution wid th standard deviationOrdered By: Wei Garsia on 01-17-2025 Erythrocyte distribution width (RBC) [Ratio] 46.7 fl High 35.1-43.9 [facility] Glomerular filtration rate ( GFR) estimation/1.73 sq m using serum, plasma, or whole bOrdered By: Wei Garsia on 01-17-2025 GFR/1.73 sq M.predicted among non-blacks MDRD (S/P/Bld) [Vol rate/Area] 47 mL/min/{1.73_m2} Low >60 [facility] Comment on above: mL/min/1.73m2 CKD-EP I Creatinine Equation (2020) Hematocrit Auto (Bld) [Volum e fraction]Ordered By: Wei Garsia on 01-17-2025 Hematocrit (Bld) [Volume fraction] 40.1 % 37-47 [facility] Hemoglobin A1con 01-17-2025 HbA1c (Bld) [Mass fraction] 6.4 % High <=5.6 [facility] Comment on above: Result Comment: Norm al < 5.7 % Prediabetic 5.7 - 6.4 % Diabetic >or= 6.5 % Please note range changes. Performed By: #### L 100.0100, L500.4050, L506.1001, L500.4100, L501.7510, L501.9985 #### [facility] [address] [place], [place], [address] Hemoglobin A1c percentageOrd ered By: Wei Garsia on 01-17-2025 HbA1c (Bld) [Mass fraction] 6.4 % High <5.7 [facility] Comment on above: Normal < 5.7 % Predi abetic 5.7 - 6.4 % Diabetic >or= 6.5 % Please note range changes. Hemoglobin measurementOrdere d By: Wei Garsia on 01-17-2025 Hemoglobin (Bld) [Mass/Vol] 12.8 g/dL 12.0-15.0 [facility] Immature granulocytes/100 WB C Auto (Bld)Ordered By: Wei Garsia on 01-17-2025 Immature granulocytes/100 WBC (Bld) 0.400 % 0.0-0.9 [facility] Comment on above: IG% - Immature Granu locytes (promyelocytes, myelocytes and metamyelocytes) > 1% indicates that a LEFT SHIFT is Present. LDL calc ser/plasOrdered By: Wei Garsia on 01-17-2025 Cholesterol in LDL [Mass/Vol] 57 mg/dL [facility] Comment on above: Tgujskwusp=169-159 m g/dL & Higher Gahm=016 mg/dL or greater Laboratory - Chemistry and C hemistry - challengeOrdered By: Wei Garsia on 01-17-2025 AST [Catalytic activity/Vol] 24 U/L <32 [facility] MCV (mean corpuscular volume ) determinationOrdered By: Wei Garsia on 01-17-2025 MCV (RBC) [Entitic vol] 90.3 fL 81-99 [facility] Mean corpuscular hemoglobin (MCH) determinationOrdered By: Wei Garsia on 01-17-2025 MCH (RBC) [Entitic mass] 28.8 pg 27.0-32.0 [facility] Mean corpuscular hemoglobin concentration (MCHC) determinationOrdered By: Wei Garsia on 01-17-2025 MCHC (RBC) [Mass/Vol] 31.9 g/dL Low 32-36 [facility] Mean platelet volume determi nationOrdered By: Wei Garsia on 01-17-2025 Platelet mean volume (Bld) [Entitic vol] 10.1 fL 6.2-12.0 [facility] Monocyte percentageOrdered B y: Wei Garsia on 01-17-2025 Monocytes/100 WBC (Bld) 9.0 % 0-10 [facility] Neutrophil percentageOrdered By: Wei Garsia on 01-17-2025 Neutrophils/100 WBC (Bld) 59.7 % 47-70 [facility] Nucleated red blood cell per centageOrdered By: Wei Garsia on 01-17-2025 Nucleated RBC/100 WBC (Bld) [Ratio] 0 % 0-5 [facility] Platelet countOrdered By: Stefan Garsia on 01-17-2025 Platelets (Bld) [#/Vol] 261 10*3/uL 150-450 [facility] Potassium measurement (mass/ volume)Ordered By: Wei Garsia on 01-17-2025 Potassium (Unsp spec) [Mass/Vol] 4.2 mmol/L 3.3-5.1 [facility] RBC Auto (Bld) [#/Vol]Ordere d By: Wei Garsia on 01-17-2025 RBC (Bld) [#/Vol] 4.44 10*6/uL 4.2-5.4 [facility] Screening total cholesterol/ high density lipoprotein (HDL) cholesterol ratioOrdered By: Wei Garsia on 01-17-2025 Cholesterol.total/Cholest pablo in HDL [Mass ratio] 2.07 {ratio} [facility] Serum creatinine measurement (mass/volume)Ordered By: Wei Garsia on 01-17-2025 Creatinine [Mass/Vol] 1.13 mg/dL 0.70-1.20 [facility] Serum globulin measurementOr dered By: Wei Garsia on 01-17-2025 Globulin (S) [Mass/Vol] 2.5 g/dL 2.2-4.2 [facility] Serum glucose measurement (m ass/volume)Ordered By: Wei Garsia on 01-17-2025 Glucose [Mass/Vol] 110 mg/dL High 70-[address] [facility] Serum or plasma alanine shah otransferase (ALT) measurementOrdered By: Wei Garsia on 01-17-2025 ALT [Catalytic activity/Vol] 18 U/L <35 [facility] Serum or plasma albumin bola urement (mass/volume)Ordered By: Wei Garsia on 01-17-2025 Albumin [Mass/Vol] 4.3 g/dL 3.4-4.[address] [facility] Serum or plasma albumin/glob ulin mass ratioOrdered By: Wei Garsia on 01-17-2025 Albumin/Globulin [Mass ratio] 1.7 {ratio} 0.9-2.4 [facility] Serum or plasma alkaline jana sphatase measurementOrdered By: Wei Garsia on 01-17-2025 ALP [Catalytic activity/Vol] 114 U/L High 35-104 [facility] Serum or plasma calcium bola urement (mass/volume)Ordered By: Wei Garsia on 01-17-2025 Calcium [Mass/Vol] 9.9 mg/dL 7.6-11.[address] [facility] Serum or plasma cholesterol in HDL measurement (mass/volume)Ordered By: Wei Garsia on 01-17-2025 Cholesterol in HDL [Mass/Vol] 69 mg/dL >40 [facility] Comment on above: National Cholesterol Education Program (NCEP) guidelines:<40 mg/dL: Low HDL-cholesterol (major risk factor for CHD)>= 60 mg/dL: High HDL-cholesterol (negative risk factor for CHD)HDL-cholesterol is affected by a number of factors, e.g. smoking, exercise, hormones, sex and age. Serum or plasma cholesterol measurement (mass/volume)Ordered By: Wei Garsia on 01-17-2025 Cholesterol [Mass/Vol] 142 mg/dL <201 [facility] Comment on above: Cholesterol level, D esirable <200 mg/dLBorderline high cholesterol 200-239 mg/dLHigh cholesterol >=240 mg/dLRecommendations of the NCEP Adult Treatment Panel for the following risk-cutoff thresholds for the [place] population. Serum or plasma digoxin bola urement (mass/volume)Ordered By: Wei Garsia on 01-17-2025 Digoxin [Mass/Vol] 0.86 ng/mL 0.00-2.[address] [facility] Serum or plasma urea nitroge n measurement (mass/volume)Ordered By: Wei Garsia on 01-17-2025 Urea nitrogen [Mass/Vol] 27 mg/dL High 4-19 [facility] Sodium levelOrdered By: Wei Garsia on 01-17-2025 Sodium [Moles/Vol] 141 mmol/L 133-[address] [facility] Total proteinOrdered By: Barbara Garsia on 01-17-2025 Protein [Mass/Vol] 6.7 g/dL 5.9-8.[address] [facility] Triglycerides measurementOrd ered By: Wei Garsia on 01-17-2025 Triglyceride [Mass/Vol] 83 mg/dL <199 [facility] Comment on above: The drugs N-Acetylcy steine and Metamizole may falsely depress this assay. Normal range: <150 mg/dLBorderline High: 150-199 mg/dLHigh: 200-499 mg/dLVery High: >500 mg/dL White blood cell (WBC) count Ordered By: Wei Garsia on 01-17-2025 WBC (Bld) [#/Vol] 6.8 10*3/uL 4.4-11.[address] [facility] 36on 01-12-2025 36 Pt was seen today. No further action needed. Closing encounter. [facility] 36 Attempted to call patient to add to later in the day, pt phone is no longer in service. [facility] Progress Noteon 01-12-2025 Progress Note Administrations This Visit onabotulinumtoxin A (BOTOX) injection 300 Units Admin Date 01/12/25 Action Given Dose 300 Units Route IntraMUSCular Site Other Administered By Garret Sanchez MD Ordering Provider: Garret Sanchez MD NDC: 9631-3349-58 (1) and [phone] (1) Lot#: [id number] (1), [id number] (1) Director Investment Banking: [employer] Patient Supplied?: No [facility] 36on 01-10-2025 36 Name of Caller: Jordy Contact Reason for Appointment: Jordy called in asking to reschedule her Botox appointment scheduled 01/12/25 to later that day if possible. Advised she had a in the family and services are the morning of 01/12/25. Please call patient back to reschedule. Office Name: [facility] Neuro Normal [facility] Progress Noteon 10-13-2024 Progress Note Administrations This Visit onabotulinumtoxin A (BOTOX) injection 200 Units Admin Date 10/13/24 Action Given Dose 200 Units [address] IntraMUSCular Site Other Administered By Garret Sanchez MD Ordering Provider: Garret Sanchez MD [facility]: [id number] (x 3) Lot#: [id number] (x 3) Director Investment Banking: [employer] Patient Supplied?: No Normal [facility] Progress Noteon 07-07-2024 Progress Note Administrations This Visit onabotulinumtoxin A (BOTOX) injection 200 Units Admin Date 07/07/2024 Action Given Dose 300 Units Route IntraMUSCular Site Other Administered By [facility] Ordering Provider: Garret Sanchez MD [facility]:[id number] [id number] Lot#: [id number] x3 Director Investment Banking: [employer]er[employer] Patient Supplied?: no, buy and bill Normal [facility] Chest WITH Contraston 2023 Chest WITH Contrast [facility] Imaging Services [address] [place] [id number] Chest WITH Contrast MR#: [id number] Acct: [id number] Name: JORDY FOSTER Rep #: [id number] : 1935 F 88 From: Reji Vital MD PCP: Dr. Wei Garsia DO Status: REG CLI Study: Chest WITH Contrast Date of Exam: 04/06/24 Exam# [id number] Ordering Dr: Wei Garsia DO -[id number] INDICATION: Solitary pulmonary nodule EXAMINATION: CT CHEST WITH CONTRAST - CT Chest W/ Contrast Injection TECHNIQUE: Helically acquired images were obtained of the chest following IV contrast. A radiation dose optimization technique was used for this scan. IV Contrast dosage and agent: COMPARISON: 05/25/2020, chest x-ray 03/28/2024 FINDINGS: LUNGS, PLEURA AND LARGE AIRWAYS: Mild bilateral apical scarring. No noncalcified nodule or mass. No pleural effusion or thickening. No pneumothorax. THYROID: No thyroid lesions. HEART AND PERICARDIUM: Heart size is normal. No pericardial effusion. VESSELS: Thoracic aorta is not dilated. No aortic dissection. No obvious central pulmonary embolism although this study was not performed with the pulmonary embolism protocol. MEDIASTINUM AND ANNE: No mediastinal or hilar adenopathy. Esophagus is unremarkable. No hiatal hernia. UPPER ABDOMEN: No acute pathology. BONES: Mild dextroscoliosis thoracic spine. CT/Chest WITH Contrast IMPRESSION: Negative contrast enhanced CT of the chest. No pulmonary nodule as suggested on recent chest x-ray. Electronically Signed: Reji Vital MD at 9:29 EDT , CC: Dr. Wei Garsia DO Beauty Culturist Apprentice: Signed Normal [facility] 12 Lead EKGon 03-28-2024 12 Lead EKG [facility] Cardiovascular Services [address] [place] [address] 12 Lead EKG 03/28/24 1124 MR#: [id number] Acct: [id number] Name: JORDY FOSTER Rep #: [id number] : 1935 88 From: Christopher Tavarez MD Attending Dr: Status: DEP ER Ordering Dr: Kimberli Bedoya Date: 03/28/24 Location: ED Sex: F C Admitted: Test Reason : Blood Pressure : / mmHG Vent. Rate : 071 BPM Atrial Rate : 071 BPM P-R Int : 152 ms QRS Dur : 082 ms QT Int : 374 ms P-R-T Axes : -06 014 089 degrees QTc Int : 406 ms Sinus rhythm with occasional Premature ventricular complexes and Fusion complexes Nonspecific ST and T wave abnormality Abnormal ECG Confirmed by Christopher Tavarez ([id number]), brands editor EDENILSON WOO ([id number]) on 03/29/2024 10:58:51 AM Referred By: Confirmed By:Christopher Tavarez 03/29/24 1058 Date Christopher Tavarez MD CC: Dr. Max Jacobs MD; Dr. Wei Garsia DO; ANDREA Frank Signed Normal [facility] Basic Metabolic Profile (BMP )on 03-28-2024 BUN/CRE 20.9 RATIO High 10-20 [facility] Comment on above: Order Comment: 1 Y Performed By: #### L 500.2500, L100.0100, L501.5425 #### [facility] [address] [place], [address] CA,Total 8.7 mg/dL Normal 8.5-10.1 [facility] Comment on above: Order Comment: 1 Y Performed By: #### L 500.2500, L100.0100, L501.5425 #### [facility] [address] [place], [address] Chloride [Moles/Vol] 104 mmol/L Normal 98-107 [facility] Comment on above: Order Comment: 1 Y Performed By: #### L 500.2500, L100.0100, L501.5425 #### [facility] [address] [place], [address] CO2 [Moles/Vol] 25.0 mmol/L Normal 21.0-32.0 [facility] Comment on above: Order Comment: 1 Y Performed By: #### L 500.2500, L100.0100, L501.5425 #### [facility] [address] [place], [address] Creatinine [Mass/Vol] 1.10 mg/dL High 0.55-1.02 [facility] Comment on above: Order Comment: 1 Y Result Comment: The validity of the calculated GFR GFRAA in patients over 70 years has not been determined. Clinical correlation is essential. Performed By: #### L 500.2500, L100.0100, L501.5425 #### [facility] [address] [place], [address] ECRCL 39.19 ml/min Normal [facility] Comment on above: Order Comment: 1 Y Performed By: #### L 500.2500, L100.0100, L501.5425 #### [facility] [address] [place], [address] EST GFR - AA 61 mL/min Normal >60 [facility] Comment on above: Order Comment: 1 Y Result Comment: Afri can [place] GFR Calc Performed By: #### L 500.2500, L100.0100, L501.5425 #### [facility] [address] [place], [address] GAP 7 Normal 5-15 [facility] Comment on above: Order Comment: 1 Y Performed By: #### L 500.2500, L100.0100, L501.5425 #### [facility] [address] [place], [address] GFR/1.73 sq M.predicted among non-blacks MDRD (S/P/Bld) [Vol rate/Area] 50 mL/min/{1.73_m2} Low >60 [facility] Comment on above: Order Comment: 1 Y Result Comment: Non- GFR Calc Performed By: #### L 500.2500, L100.0100, L501.5425 #### [facility] [address] [place], [address] Glucose [Mass/Vol] 132 mg/dL High 74-106 [facility] [facility] Comment on above: Order Comment: 1 Y Result Comment: Fast ing Glucose result greater than or equal to 126 mg/dL suggests DIABETES MELLITUS per A.D.A. criteria. Performed By: #### L 500.2500, L100.0100, L501.5425 #### [facility] [address] [place], [address] Potassium [Moles/Vol] 4.1 mmol/L Normal 3.5-5.1 [facility] Comment on above: Order Comment: 1 Y Performed By: #### L 500.2500, L100.0100, L501.5425 #### [facility] [address] [place], [address] Sodium [Moles/Vol] 136 mmol/L Normal 136-[address] [facility] Comment on above: Order Comment: 1 Y Performed By: #### L 500.2500, L100.0100, L501.5425 #### [facility] [address] [place], [address] Urea nitrogen [Mass/Vol] 23 mg/dL High 7-18 [facility] Comment on above: Order Comment: 1 Y Performed By: #### L 500.2500, L100.0100, L501.5425 #### [facility] [address] [place], [address] CBC W/Diff, Automatedon 082 -2023 Absolute Lymph 2.02 X10 3/uL Normal 0.83-4.51 [facility] Comment on above: Performed By: #### L 500.2500, L100.0100, L501.5425 #### [facility] [address] [place], [address] Absolute Neut 6.5 X10 3/uL Normal 2.0-7.7 [facility] Comment on above: Performed By: #### L 500.2500, L100.0100, L501.5425 #### [facility] [address] [place], [address] Basophils/100 WBC (Bld) 0.5 % Normal 0-1 [facility] Comment on above: Performed By: #### L 500.2500, L100.0100, L501.5425 #### [facility] [address] [place], [address] Eosinophils/100 WBC (Bld) 2.3 % Normal 0-5 [facility] Comment on above: Performed By: #### L 500.2500, L100.0100, L501.5425 #### [facility] [address] [place], [address] Erythrocyte distribution width (RBC) [Ratio] 14.6 % Normal 11.6-14.6 [facility] Comment on above: Performed By: #### L 500.2500, L100.0100, L501.5425 #### [facility] [address] [place], [address] Hematocrit (Bld) [Volume fraction] 43.1 % Normal 37-47 [facility] Comment on above: Performed By: #### L 500.2500, L100.0100, L501.5425 #### [facility] [address] [place], [address] Hemoglobin (Bld) [Mass/Vol] 13.5 g/dL Normal 12.0-15.0 [facility] Comment on above: Performed By: #### L 500.2500, L100.0100, L501.5425 #### [facility] [address] [place], [address] IG% 0.400 Normal 0.0-0.9 [facility] Comment on above: Result Comment: IG% - Immature Granulocytes (promyelocytes, myelocytes and metamyelocytes) > 1% indicates that a LEFT SHIFT is Present. Performed By: #### L 500.2500, L100.0100, L501.5425 #### [facility] [address] [place], [address] Lymphocytes/100 WBC (Bld) 20.6 % Normal 19-41 [facility] Comment on above: Performed By: #### L 500.2500, L100.0100, L501.5425 #### [facility] [address] [place], [address] MCH (RBC) [Entitic mass] 26.7 pg Low 27.0-32.0 [facility] Comment on above: Performed By: #### L 500.2500, L100.0100, L501.5425 #### [facility] [address] [place], [address] MCHC (RBC) [Mass/Vol] 31.3 g/dL Low 32-36 [facility] Comment on above: Performed By: #### L 500.2500, L100.0100, L501.5425 #### [facility] [address] [place], [address] MCV (RBC) [Entitic vol] 85.2 fL Normal 81-99 [facility] Comment on above: Performed By: #### L 500.2500, L100.0100, L501.5425 #### [facility] [address] [place], [address] Monocytes/100 WBC (Bld) 9.8 % Normal 0-10 [facility] Comment on above: Performed By: #### L 500.2500, L100.0100, L501.5425 #### [facility] [address] [place], [address] Neutrophils/100 WBC (Bld) 66.4 % Normal 47-70 [facility] Comment on above: Performed By: #### L 500.2500, L100.0100, L501.5425 #### [facility] [address] [place], [address] Nucleated RBC (Bld) [#/Vol] 0 10*3/uL Normal 0-5 [facility] Comment on above: Performed By: #### L 500.2500, L100.0100, L501.5425 #### [facility] [address] [place], [address] Platelet mean volume (Bld) [Entitic vol] 11.4 fL Normal 6.2-12.0 [facility] Comment on above: Performed By: #### L 500.2500, L100.0100, L501.5425 #### [facility] [address] [place], [address] Platelets (Bld) [#/Vol] 178 10*3/uL Normal 150-450 [facility] Comment on above: Performed By: #### L 500.2500, L100.0100, L501.5425 #### [facility] [address] [place], [address] RBC (Bld) [#/Vol] 5.06 10*6/uL Normal 4.2-5.4 [facility] Comment on above: Performed By: #### L 500.2500, L100.0100, L501.5425 #### [facility] [address] [place], [address] RDW SD 44.9 fl High 35.1-43.9 [facility] Comment on above: Performed By: #### L 500.2500, L100.0100, L501.5425 #### [facility] [address] [place], [address] WBC (Bld) [#/Vol] 9.8 10*3/uL Normal 4.4-11.[address] [facility] Comment on above: Performed By: #### L 500.2500, L100.0100, L501.5425 #### [facility] [address] [place], [address] Chest PA and Lateralon 03-28 Chest PA and Lateral [facility] Imaging Services [address] [place] [address] Chest PA and Lateral MR#: [id number] Acct: [id number] Name: JODRY FOSTER Rep #: [id number] : 1935 F 88 From: Eloise rojo MD PCP: Dr. Wei Garsia, DO Status: [facility] ER Study: Chest PA and Lateral Date of Exam: 03/28/24 Exam# [id number] Ordering Dr: Kimberli Bedoya -[id number] HISTORY: chest pain. TECHNIQUE: XR Chest 2 Views. COMPARISON: 10/11/2022. FINDINGS: CARDIOMEDIASTINAL BORDERS: Cardiac silhouette within normal limits in size. Mediastinal contour unchanged with calcification of the aortic knob. LUNGS: Chronic linear scarring in the left lung base. New 10 mm nodule in the right midlung. PLEURA: No pleural effusion or pneumothorax seen. OSSEOUS STRUCTURES: Degenerative change. RAD/Chest PA and Lateral IMPRESSION: New 10 mm nodule in the right midlung; consider follow-up or CT. Electronically Signed: Eloise Tubbs MD at 12:10 EDT Reading Location ID and State: [facility] / ID Tel , Service support , CC: Dr. Wei Garsia DO; ANDREA Frank Beauty Culturist Apprentice: Signed Normal [facility] Emergency Department Summary on 03-28-2024 Emergency Department Summary [facility] Medical Records Department [address] [place] [id number] Emergency Department Summary 03/28/24 MR#: [id number] Acct: [id number] Name: JORDY FOSTER Rep #: [id number] : 1935 88 From: Max Jacobs MD PCP: Dr. Wei Garsia DO Status:DEP ER Location: ED HPI History of Present Illness Chief Complaint: Chest Pain Narrative Narrative: Patient presenting today with left-sided chest pain that radiates into her left arm, left side of her neck, and left jaw that she has had intermittently over the past 3 to 4 days. Nothing seems to make her pain better/worse, it is not exertional. She reports that she also experienced palpitations this morning and does have a history of paroxysmal atrial fibrillation, HTN, HLD. She does take Eliquis and is compliant with this.. She has had similar chest pain and palpitations in the past, she reports that she has had these off and on over the past 20 years. She reports that she has had a slight nonproductive cough over the last several days. She denies fevers, chills, shortness of breath, abdominal pain, nausea, and vomiting. PE Risk Factors: Negative for Recent Travel/Surgery, Recent Immobilization or Prior DVT or PE [facility] Medical History Pneumonia COVID-19 UTI (urinary tract infection) SVT (supraventricular tachycardia) Torticollis Blepharospasm GERD (gastroesophageal reflux disease) Nonrheumatic mitral (valve) prolapse Essential hypertension Ventricular ectopy Paroxysmal atrial fibrillation Home Medications ???Medication ???Instructions ???Recorded ???Last Taken ???Type melatonin 10 mg capsule 10 mg PO QHS 01/15/17 08/07/18 History digoxin 125 mcg (0.125 mg) tablet 125 mcg PO DAILY #90 tabs 03/05/19 Unknown Rx cholecalciferol (vitamin D3) 25 4,000 unit PO DAILY 01/31/20 Unknown History mcg (1,000 unit) capsule apixaban 2.5 mg tablet (Eliquis) 2.5 mg PO BID #60 tabs 01/06/21 Unknown Rx atorvastatin 10 mg tablet 10 mg PO QHS #30 tabs 01/06/21 Unknown Rx metoprolol succinate 50 mg 50 mg PO DAILY 11/07/21 Unknown History tablet,extended release 24 hr magnesium 250 mg tablet 500 mg PO DAILY PRN sleep 11/11/23 Unknown History Allergy/AdvReac Type Severity Reaction Status Date / Time bee venom protein (honey bee) Allergy Anaphylaxis Verified 03/28/24 11:10 latex Allergy Rash Verified 03/28/24 11:10 Penicillins Allergy Rash Verified 03/28/24 11:10 Family History Father CHF (congestive heart failure) Surgical History History of knee surgery History of total hysterectomy History of tonsillectomy and adenoidectomy History of lumpectomy of left breast Social History Smoking Status: Never smoker alcohol intake: never substance use type: does not use caffeine: Yes eating out: rarely or never ROS ROS ED Constitutional Constitutional ED: Denies chills or fever(s) Cardiovascular Cardiovascular: Reports chest pain and palpitations Respiratory/Chest Respiratory/Chest: Denies cough or dyspnea Gastrointestinal Gastrointestinal: Denies abdominal pain, nausea or vomiting Musculoskeletal Musculoskeletal: Denies arthralgias or myalgias Integumentary Denies rash Neurologic Neurologic: Denies paresthesias EXAM Physical Exam Const Vital Signs: 03/28/24 11:10 03/28/24 11:15 03/28/24 12:32 Temperature 97.9 F 97.9 F Temperature Source Temporal Pulse Rate 75 67 Respiratory Rate 20 H 20 H Respiratory Effort Normal Non-Labored Blood Pressure 130/78 H 133/64 H Blood Pressure Mean 95 87 Pulse Ox 95 92 Oxygen Delivery Method Room Air Positive well nourished, well developed and no apparent distress General Appearance ED: well developed HEENT Reports normocephalic and head/scalp atraumatic Mouth ED: Yes moist mucous membranes normal Eyes PERRL and EOMs intact bilaterally Neck full ROM and supple Chest Wall inspection of chest normal Chest Narrative: Midsternal and left-sided chest tenderness to palpation Resp normal respiratory effort and clear to auscultation bilaterally Cardio regular rate and regular rhythm GI soft to palpation, non-tender, non-distended and no masses Back/Spine normal ROM and normal to inspection Extremity normal to inspection and full ROM Neuro oriented x3, CN's II-XII intact bilaterally, moves all extremities, no focal motor deficits and no sensory deficits noted Sensorium / Orientation: awake and alert Psych mental status grossly normal and thought process normal Skin no rashes or lesions noted and no wounds Physical (more content not included)... Normal [facility] L501.5425on 03-28-2024 TROPONIN-I HS 19 pg/mL Normal 3.0-54.0 [facility] Comment on above: Order Comment: 1 Y Result Comment: Talia nava Note: New Test Units and Gender Specific Reference Ranges. For more information see Policy Stat Procedure [place] High Sensitivity Troponin (TNIH) and attachments. Performed By: #### L 500.2500, L100.0100, L501.5425 #### [facility] [address] [place], [place], [address] Progress Noteon 03-03-2024 Progress Note Administrations This Visit onabotulinumtoxin A (BOTOX) injection 200 Units Admin Date 03/03/2024 Action Given Dose 250 Units Route IntraMUSCular Site Other Administered By [facility] Ordering Provider: Garret Sanchez MD [facility]:[id number] [id number] Lot#: [id number] [id number] Director Investment Banking: [employer] Patient Supplied?: No, buy and bill [facility] 36on 02-16-2024 36 Pt notified there are no available appts for 02/25/2024. She is on the wait list if anything opens up. [facility] 36 S: Patient spoke with [facility] nurse regarding moving up botox injection appt on 03-03-24. B: Onset of symptoms/concern end january. A: Pt states she gets botox injections every 12 weeks. Last inj was 12-03-23 and her next one is not scheduled until 03-03-24. Pt states her 12 weeks would be 02-25-24 not 03-03-24 and she would like to have appt moved up. Pt states she has been having symptoms of head pain and eye pain since end january. Last injection did not seem to help her that much. Pt wants message sent to office to move up appt. R: Will send message to office to review and call pt at [phone]. Pt states she is in pain and really wants to have appt moved up to the . Reason for Disposition Patient wants to be seen Answer Assessment - Initial Assessment Questions 1. LOCATION: Where does it hurt? All over head and into eyes 2. ONSET: When did the headache start? (Minutes, hours or days) End of January 3. PATTERN: Does the pain come and go, or has it been constant since it started? constant 4. SEVERITY: How bad is the pain? and What does it keep you from doing? (e.g., Scale 1-10; mild, moderate, or severe) - MILD (1-3): doesn't interfere with normal activities - MODERATE (4-7): interferes with normal activities or awakens from sleep - SEVERE (8-10): excruciating pain, unable to do any normal activities 8 or 9 5. RECURRENT SYMPTOM: Have you ever had headaches before? If Yes, ask: When was the last time? and What happened that time? Yes 6. CAUSE: What do you think is causing the headache? migraines 7. MIGRAINE: Have you been diagnosed with migraine headaches? If Yes, ask: Is this headache similar? Yes 8. HEAD INJURY: Has there been any recent injury to the head? No 9. OTHER SYMPTOMS: Do you have any other symptoms? (fever, stiff neck, eye pain, sore throat, cold symptoms) Eye pain; stiff neck 10. : Is there any chance you are ? When was your last menstrual period? N/A Protocols used: [id number] Normal [facility] 36 error Normal [facility] Laboratory - Miscellaneous t estsOrdered By: Wei Garsia on 11-12-2023 Service comment (Unsp spec) [Interp] Comment . [facility] Comment on above: Levels of Specific I gE Class Description of Class ----- < 0.10 0 Negative 0.10 - 0.31 0/I Equivocal/Low 0.32 - 0.55 I Low 0.56 - 1.40 II Moderate 1.41 - 3.90 III High 3.91 - 19.00 IV Very High 19.01 - 100.00 V Very High >100.00 Very High No Panel InformationOrdered By: Wei Garsia on 11-12-2023 Scallop Allergen <0.10 kU/L Class 0 [facility] Sesame Seed Allergen IgE Antibody <0.10 kU/L Class 0 [facility] Comment on above: Performed at: [address] [id number] Director: Rodo Henderson MD, Phone: [phone] Shrimp Allergen <0.10 kU/L Class 0 [facility] Serum black walnut IgE antib radha assay (units/volume)Ordered By: Wei Garsia on 11-12-2023 Black Atlas IgE Qn (S) <0.10 kU/L Class 0 [facility] Serum clam IgE antibody assa y (units/volume)Ordered By: Wei Garsia on 11-12-2023 Clam IgE Qn (S) <0.10 kU/L Class 0 [facility] Serum codfish IgE antibody a ssay (units/volume)Ordered By: Wei Garsia on 11-12-2023 Codfish IgE Qn (S) <0.10 kU/L Class [address] [facility] Serum corn IgE antibody assa y (units/volume)Ordered By: Wei Garsia on 11-12-2023 Four [place]aks IgE Qn (S) <0.10 kU/L Class 0 [facility] Serum cow milk IgE antibody assay (units/volume)Ordered By: Wei Garsia on 11-12-2023 Cow milk IgE Qn (S) <0.10 kU/L Class 0 [facility] Serum egg white IgE antibody assay (units/volume)Ordered By: Wei Garsia on 11-12-2023 Egg white IgE Qn (S) <0.10 kU/L Class 0 [facility] Serum peanut IgE antibody as say (units/volume)Ordered By: Wei Garsia on 11-12-2023 Peanut IgE Qn (S) <0.10 kU/L Class 0 [facility] Serum soybean IgE antibody a ssay (units/volume)Ordered By: Wei Garsia on 11-12-2023 Soybean IgE Qn (S) <0.10 kU/L Class [address] [facility] Serum wheat IgE antibody ass ay (units/volume)Ordered By: Wei Garsia on 11-12-2023 Wheat IgE Qn (S) <0.10 kU/L Class 0 [facility] No Panel InformationOrdered By: Christopher Tavarez on 11-11-2023 Digoxin Level 0.62 ng/mL 0.80-2.00 [facility] Absolute lymphocyte countOrd ered By: Wei Garsia on 10-28-2023 Lymphocytes Auto (Unsp spec) [#/Vol] 2.66 10*3/uL 0.83-4.51 [facility] Automated lymphocyte count a s percentage of total leukocytesOrdered By: Wei Garsia on 10-28-2023 Lymphocytes/100 WBC Auto (Unsp spec) 30.8 % 19-41 [facility] Basophil percentageOrdered B y: Wei Garsia on 10-28-2023 Basophils/100 WBC (Bld) 0.9 % 0-1 [facility] Bilirubin [Mass/Vol] 0.50 mg/dL 0.20-1.00 [facility] Comment on above: For patients on eltr ombopag therapy, use of Dimension [place] TBIL is not recommended. Chloride [Moles/Vol] 108 mmol/L 98-107 [facility] Eosinophils/100 WBC (Bld) 4.2 % 0-5 [facility] Glucose [Mass/Vol] 97 mg/dL 74-[address] [facility] Hemoglobin (Bld) [Mass/Vol] 12.8 g/dL 12.0-15.0 [facility] Monocytes/100 WBC (Bld) 8.9 % 0-10 [facility] Neutrophils (Bld) [#/Vol] 4.7 10*3/uL 2.0-7.7 [facility] Neutrophils/100 WBC (Bld) 55.0 % 47-70 [facility] Potassium [Moles/Vol] 4.5 mmol/L 3.5-5.1 [facility] Protein [Mass/Vol] 6.9 g/dL 6.4-8.[address] [facility] Sodium [Moles/Vol] 141 mmol/L 136-[address] [facility] WBC (Bld) [#/Vol] 8.6 10*3/uL 4.4-11.[address] [facility] Determination of erythrocyte mean corpuscular volume (MCV)Ordered By: Wei Garsia on 10-28-2023 MCV (RBC) [Entitic vol] 87.1 fL 81-99 [facility] Erythrocyte distribution wid th ratioOrdered By: Wei Garsia on 10-28-2023 Erythrocyte distribution width (RBC) [Ratio] 14.4 % 11.6-14.6 [facility] Erythrocyte distribution wid th standard deviationOrdered By: Wei Garsia on 10-28-2023 Erythrocyte distribution width (RBC) [Entitic vol] 46.0 fL 35.1-43.[address] [facility] Erythrocyte sedimentation ra teOrdered By: Wei Garsia on 10-28-2023 ESR (Bld) [Velocity] 11 mm/h 0-30 [facility] Hematocrit Auto (Bld) [Volum e fraction]Ordered By: Wei Garsia on 10-28-2023 Hematocrit (Bld) [Volume fraction] 41.9 % 37-47 [facility] Immature granulocytes/100 WB C Auto (Bld)Ordered By: Wei Garsia on 10-28-2023 Immature granulocytes/100 WBC (Bld) 0.200 % 0.0-0.9 [facility] Comment on above: IG% - Immature Granu locytes (promyelocytes, myelocytes and metamyelocytes) > 1% indicates that a LEFT SHIFT is Present. Laboratory - Chemistry and C hemistry - challengeOrdered By: Wei Garsia on 10-28-2023 Albumin/Globulin [Mass ratio] 1.3 {ratio} 0.9-2.4 [facility] ALP [Catalytic activity/Vol] 96 U/L 45-117 [facility] ALT [Catalytic activity/Vol] 25 U/L 13-56 [facility] CO2 [Moles/Vol] 27.0 mmol/L 21.0-32.0 [facility] Globulin (S) [Mass/Vol] 3.0 g/dL 2.2-4.2 [facility] Urea nitrogen/Creatinine [Mass ratio] 23.9 mg/mg 10-20 [facility] Laboratory - Hematology and Cell countsOrdered By: Wei Garsia on 10-28-2023 MCH (RBC) [Entitic mass] 26.6 pg 27.0-32.0 [facility] MCHC (RBC) [Mass/Vol] 30.5 g/dL 32-36 [facility] Nucleated RBC/100 WBC (Bld) [Ratio] 0 % 0-5 [facility] Platelet mean volume (Bld) [Entitic vol] 10.6 fL 6.2-12.0 [facility] Platelets (Bld) [#/Vol] 235 10*3/uL 150-450 [facility] No Panel InformationOrdered By: Wei Garsia on 10-28-2023 Anti-Nuclear Antibody Screen Negative [facility] C-Reactive Protein Extended Range 3.05 mg/L 0.0-3.0 [facility] Comment on above: C-Reactive Protein ( CRP) provides useful information for thediagnosis, therapy and monitoring of inflammatory processesand associated diseases. For the evaluation of Relative Riskfor Cardiovascular Disease, a High Sensitivity CRP (HSCRP)should be ordered. Centromere B Antibody Not Reportable [facility] Estimated GFR (MDRD) Amer 61 mL/min >60 [facility] Comment on above: GFR Calc Estimated GFR (MDRD) Non-Af Amer 51 mL/min >60 [facility] Comment on above: Non- GFR Calc YANI-1 Antibody Not Reportable [facility] DRY CHAIN WORKER Antibody Not Reportable [facility] SM Antibody Not Reportable [facility] SS-A/Ro IgG Antibody Not Reportable [facility] SS-B/La IgG Antibody Not Reportable [facility] RBC Auto (Bld) [#/Vol]Ordere d By: Wei Garsia on 10-28-2023 RBC (Bld) [#/Vol] 4.81 10*6/uL 4.2-5.4 [facility] Serum DNA double strand anti body assay (units/volume)Ordered By: Wei Garsia on 10-28-2023 DNA double strand Ab Qn (S) Not Reportable [facility] Serum Scl-70 antibody assay (units/volume)Ordered By: Wie Garsia on 10-28-2023 SCL-70 extractable nuclear Ab Qn (S) Not Reportable [facility] Serum or plasma calcium bola urement (mass/volume)Ordered By: Wei Garsia on 10-28-2023 Calcium [Mass/Vol] 9.5 mg/dL 8.5-10.[address] [facility] Serum or plasma creatinine m easurement (mass/volume)Ordered By: Wei Garisa on 10-28-2023 Creatinine [Mass/Vol] 1.09 mg/dL 0.55-1.02 [facility] Comment on above: The validity of the calculated GFR & GFRAA in patients over 70 years has not been determined. Clinical correlation is essential. Serum or plasma urea nitroge n measurement (mass/volume)Ordered By: Wei Garsia on 10-28-2023 Urea nitrogen [Mass/Vol] 26 mg/dL 7-18 [facility] Thin prep Papanicolaou smear with manual screeningOrdered By: Wei Garsia on 10-28-2023 Thin prep Papanicolaou smear with manual screening 3.9 g/dL 3.2-5.0 [facility] Thin prep Papanicolaou smear with manual screening 23 U/L 15-37 [facility] Thin prep Papanicolaou smear with manual screening 6 5-15 [facility] Culture, urineOrdered By: Stefan Garsia on 09-02-2023 Bacteria identified Cx Nom (U) Escherichia coli [facility] Bacteria identified Cx Nom (U) Escherichia coli [facility] Absolute lymphocyte countOrd ered By: Dr. Garsia on 12-11-2022 Lymphocytes Auto (Unsp spec) [#/Vol] 2.98 10*3/uL 0.83-4.51 [facility] Basophil percentageOrdered B y: Dr. Garsia on 12-11-2022 Basophils/100 WBC (Bld) 0.9 % 0-1 [facility] Bilirubin [Mass/Vol] 0.60 mg/dL 0.20-1.00 [facility] Comment on above: For patients on eltr ombopag therapy, use of [facility] [place] TBIL is not recommended. Chloride [Moles/Vol] 107 mmol/L 98-107 [facility] Cholesterol [Mass/Vol] 133 mg/dL <200 [facility] Comment on above: <200 mg/dL Desirable 200-240 mg/dL Borderline >240 mg/dL High Risk Eosinophils/100 WBC (Bld) 2.6 % 0-5 [facility] Glucose [Mass/Vol] 116 mg/dL 74-[address] [facility] Comment on above: Fasting Glucose resu lt from 100 to 125 mg/dL suggests IMPAIRED HOMEOSTASIS per A.D.A. criteria. Neutrophils (Bld) [#/Vol] 3.9 10*3/uL 2.0-7.7 [facility] Neutrophils/100 WBC (Bld) 49.9 % 47-70 [facility] Potassium [Moles/Vol] 4.3 mmol/L 3.5-5.1 [facility] Protein [Mass/Vol] 6.7 g/dL 6.4-8.[address] [facility] Sodium [Moles/Vol] 141 mmol/L 136-[address] [facility] Triglyceride [Mass/Vol] 96 mg/dL <199 [facility] Comment on above: The drugs N-Acetylcy steine and Metamizole may falsely depress this assay.Serum Triglycerides Reference Interval Normal <150 mg/dL Borderline high 150 - 199 mg/dL High 200 - 499 mg/dL Very High > or = 500 mg/dL WBC (Bld) [#/Vol] 7.8 10*3/uL 4.4-11.[address] [facility] Blood erythrocytes count (nu mber/volume)Ordered By: Dr. Garsia on 12-11-2022 RBC (Bld) [#/Vol] 4.78 10*6/uL 4.2-5.4 [facility] Blood hemoglobin measurement (mass/volume)Ordered By: Dr. Garsia on 12-11-2022 Hemoglobin (Bld) [Mass/Vol] 13.1 g/dL 12.0-15.0 [facility] Blood lymphocytes/100 leukoc ytesOrdered By: Dr. Garsia on 12-11-2022 Lymphocytes/100 WBC (Bld) 38.3 % 19-41 [facility] Blood monocytes/100 leukocyt esOrdered By: Dr. Garsia on 12-11-2022 Monocytes/100 WBC (Bld) 8.0 % 0-10 [facility] Blood platelet mean volumeOr dered By: Dr. Garsia on 12-11-2022 Platelet mean volume (Bld) [Entitic vol] 10.6 fL 6.2-12.0 [facility] Determination of erythrocyte mean corpuscular volume (MCV)Ordered By: Dr. Garsia on 12-11-2022 MCV (RBC) [Entitic vol] 89.3 fL 81-99 [facility] Direct bilirubinOrdered By: Dr. Garsia on 12-11-2022 Bilirubin.direct [Mass/Vol] 0.14 mg/dL 0.00-0.30 [facility] Hematocrit Auto (Bld) [Volum e fraction]Ordered By: Dr. Garsia on 12-11-2022 Hematocrit (Bld) [Volume fraction] 42.7 % 37-47 [facility] Laboratory - Chemistry and C hemistry - challengeOrdered By: Dr. Garsia on 12-11-2022 ALP [Catalytic activity/Vol] 113 U/L 45-117 [facility] ALT [Catalytic activity/Vol] 36 U/L 13-56 [facility] CO2 [Moles/Vol] 28.0 mmol/L 21.0-32.0 [facility] Globulin (S) [Mass/Vol] 3.1 g/dL 2.2-4.2 [facility] Magnesium [Mass/Vol] 2.0 mg/dL 1.6-2.6 [facility] Urea nitrogen/Creatinine [Mass ratio] 24.3 mg/mg 10-20 [facility] Laboratory - Hematology and Cell countsOrdered By: Dr. Garsia on 12-11-2022 Erythrocyte distribution width (RBC) [Entitic vol] 48.3 fL 35.1-43.[address] [facility] Erythrocyte distribution width (RBC) [Ratio] 14.6 % 11.6-14.6 [facility] Immature granulocytes/100 WBC (Bld) 0.300 % 0.0-0.9 [facility] Comment on above: IG% - Immature Granu locytes (promyelocytes, myelocytes and metamyelocytes) > 1% indicates that a LEFT SHIFT is Present. MCH (RBC) [Entitic mass] 27.4 pg 27.0-32.0 [facility] Nucleated RBC/100 WBC (Bld) [Ratio] 0 % 0-5 [facility] MCHC Auto (RBC) [Mass/Vol]Or dered By: Dr. Garsia on 12-11-2022 MCHC (RBC) [Mass/Vol] 30.7 g/dL 32-36 [facility] No Panel InformationOrdered By: Dr. Garsia on 12-11-2022 Estimated GFR (MDRD) Amer 72 mL/min >60 [facility] Comment on above: GFR Calc Estimated GFR (MDRD) Non-Af Amer 60 mL/min >60 [facility] Comment on above: Non- GFR Calc Platelets bldOrdered By: Dr. Garsia on 12-11-2022 Platelets (Bld) [#/Vol] 241 10*3/uL 150-450 [facility] Serum or plasma albumin bola urement (mass/volume)Ordered By: Dr. Garsia on 12-11-2022 Albumin [Mass/Vol] 3.6 g/dL 3.2-5.[address] [facility] Serum or plasma albumin/glob ulin mass ratioOrdered By: Dr. Garsia on 12-11-2022 Albumin/Globulin [Mass ratio] 1.2 {ratio} 0.9-2.4 [facility] Serum or plasma calcium bola urement (mass/volume)Ordered By: Dr. Garsia on 12-11-2022 Calcium [Mass/Vol] 9.1 mg/dL 8.5-10.[address] [facility] Serum or plasma cholesterol in HDL measurement (mass/volume)Ordered By: Dr. Garsia on 12-11-2022 Cholesterol in HDL [Mass/Vol] 67 mg/dL >40 [facility] Comment on above: The drugs N-Acetylcy steine and Metamizole may falsely depress this assay. Reference Range HDL <40 mg/dL Low HDL Cholesterol HDL >or= 60 mg/dL High HDL Cholesterol Serum or plasma cholesterol in VLDL measurement (mass/volume)Ordered By: Dr. Garsia on 12-11-2022 Cholesterol in VLDL [Mass/Vol] 19 mg/dL 5-40 [facility] Serum or plasma creatinine m easurement (mass/volume)Ordered By: Dr. Garsia on 12-11-2022 Creatinine [Mass/Vol] 0.95 mg/dL 0.55-1.02 [facility] Comment on above: The validity of the calculated GFR & GFRAA in patients over 70 years has not been determined. Clinical correlation is essential. Serum or plasma low density lipoprotein (LDL) cholesterol measurement (mass/volume)Ordered By: Dr. Garsia on 12-11-2022 Cholesterol in LDL [Mass/Vol] 47 mg/dL 0-130 [facility] Serum or plasma urea nitroge n measurement (mass/volume)Ordered By: Dr. Garsia on 12-11-2022 Urea nitrogen [Mass/Vol] 23 mg/dL 7-18 [facility] Thin prep Papanicolaou smear with manual screeningOrdered By: Dr. Garsia on 12-11-2022 Thin prep Papanicolaou smear with manual screening 38 U/L 15-37 [facility] Thin prep Papanicolaou smear with manual screening 6 5-15 [facility] Whole blood hemoglobin A1c/t otal hemoglobin ratio (mass fraction)Ordered By: Dr. Garsia on 12-11-2022 HbA1c (Bld) [Mass fraction] 6.3 % 3.8-5.6 [facility] Comment on above: Normal < 5.7 % Predi abetic 5.7 - 6.4 % Diabetic >or= 6.5 % Please note range changes. Absolute lymphocyte countOrd ered By: Dr. Garsia on 10-11-2022 Lymphocytes Auto (Unsp spec) [#/Vol] 2.62 10*3/uL 0.83-4.51 [facility] Basophil percentageOrdered B y: Dr. Garsia on 10-11-2022 Basophils/100 WBC (Bld) 0.6 % 0-1 [facility] Bilirubin [Mass/Vol] 0.40 mg/dL 0.20-1.00 [facility] Comment on above: For patients on eltr ombopag therapy, use of [place] TBIL is not recommended. Chloride [Moles/Vol] 104 mmol/L 98-107 [facility] Eosinophils/100 WBC (Bld) 3.1 % 0-5 [facility] Glucose [Mass/Vol] 80 mg/dL 74-[address] [facility] Neutrophils (Bld) [#/Vol] 7.5 10*3/uL 2.0-7.7 [facility] Neutrophils/100 WBC (Bld) 63.9 % 47-70 [facility] Potassium [Moles/Vol] 5.0 mmol/L 3.5-5.1 [facility] Protein [Mass/Vol] 7.3 g/dL 6.4-8.[address] [facility] Sodium [Moles/Vol] 139 mmol/L 136-[address] [facility] WBC (Bld) [#/Vol] 11.7 10*3/uL 4.4-11.0 [facility] Blood erythrocytes count (nu mber/volume)Ordered By: Dr. Garsia on 10-11-2022 RBC (Bld) [#/Vol] 4.58 10*6/uL 4.2-5.4 [facility] Blood hemoglobin measurement (mass/volume)Ordered By: Dr. Garsia on 10-11-2022 Hemoglobin (Bld) [Mass/Vol] 12.4 g/dL 12.0-15.0 [facility] Blood lymphocytes/100 leukoc ytesOrdered By: Dr. Garsia on 10-11-2022 Lymphocytes/100 WBC (Bld) 22.4 % 19-41 [facility] Blood monocytes/100 leukocyt esOrdered By: Dr. Garsia on 10-11-2022 Monocytes/100 WBC (Bld) 9.7 % 0-10 [facility] Blood platelet mean volumeOr dered By: Dr. Garsia on 10-11-2022 Platelet mean volume (Bld) [Entitic vol] 10.7 fL 6.2-12.0 [facility] COVID-19 virus antigen assay Ordered By: Dr. Garsia on 10-11-2022 SARS-CoV-2 (COVID-19) Ag IA.rapid Ql (Resp) Not detected Not Detect [facility] Comment on above: Normal Reference Ran ge: Not DetectedMethod:(RT-PCR) real-time reverse transcriptase PCRLuminex MECCA Instrument*The Food and Drug Administration (FDA) has issued an Emergency Use Authorization (EAU) for the MECCA SARS-CoV-2 Assay for the rapid detection of the virus that causes COVID-19. This test has been validated, but the FDAs independent review of this validation is pending.*Negative results do not preclude infection and should not be used as the sole basis for treatment or patient management. Optimum specimen types and timing for peak viral levels during infections caused by SARS-CoV-2 have not been determined. Collection of multiple specimens from the same patient may be necessary to detect the virus. The possibility of a false negative result should be considered if the patient has clinical presentation or has had recent exposure. Determination of erythrocyte mean corpuscular volume (MCV)Ordered By: Dr. Garsia on 10-11-2022 MCV (RBC) [Entitic vol] 89.3 fL 81-99 [facility] Hematocrit Auto (Bld) [Volum e fraction]Ordered By: Dr. Garsia on 10-11-2022 Hematocrit (Bld) [Volume fraction] 40.9 % 37-47 [facility] Laboratory - Chemistry and C hemistry - challengeOrdered By: Dr. Garsia on 10-11-2022 ALP [Catalytic activity/Vol] 247 U/L 45-117 [facility] ALT [Catalytic activity/Vol] 71 U/L 13-56 [facility] CO2 [Moles/Vol] 29.0 mmol/L 21.0-32.0 [facility] Globulin (S) [Mass/Vol] 3.5 g/dL 2.2-4.2 [facility] Urea nitrogen/Creatinine [Mass ratio] 21.0 mg/mg 10-20 [facility] Laboratory - Hematology and Cell countsOrdered By: Dr. Garsia on 10-11-2022 Erythrocyte distribution width (RBC) [Entitic vol] 49.1 fL 35.1-43.[address] [facility] Erythrocyte distribution width (RBC) [Ratio] 14.9 % 11.6-14.6 [facility] Immature granulocytes/100 WBC (Bld) 0.300 % 0.0-0.9 [facility] Comment on above: IG% - Immature Granu locytes (promyelocytes, myelocytes and metamyelocytes) > 1% indicates that a LEFT SHIFT is Present. MCH (RBC) [Entitic mass] 27.1 pg 27.0-32.0 [facility] Nucleated RBC/100 WBC (Bld) [Ratio] 0 % 0-5 [facility] MCHC Auto (RBC) [Mass/Vol]Or dered By: Dr. Garsia on 10-11-2022 MCHC (RBC) [Mass/Vol] 30.3 g/dL 32-36 [facility] No Panel InformationOrdered By: Dr. Garsia on 10-11-2022 Estimated GFR (MDRD) Amer 64 mL/min >60 [facility] Comment on above: GFR Calc Estimated GFR (MDRD) Non-Af Amer 53 mL/min >60 [facility] Comment on above: Non- GFR Calc Platelets bldOrdered By: Dr. Garsia on 10-11-2022 Platelets (Bld) [#/Vol] 257 10*3/uL 150-450 [facility] Serum or plasma albumin bola urement (mass/volume)Ordered By: Dr. Garsia on 10-11-2022 Albumin [Mass/Vol] 3.8 g/dL 3.2-5.[address] [facility] Serum or plasma albumin/glob ulin mass ratioOrdered By: Dr. Garsia on 10-11-2022 Albumin/Globulin [Mass ratio] 1.1 {ratio} 0.9-2.4 [facility] Serum or plasma calcium bola urement (mass/volume)Ordered By: Dr. Garsia on 10-11-2022 Calcium [Mass/Vol] 9.8 mg/dL 8.5-10.[address] [facility] Serum or plasma creatinine m easurement (mass/volume)Ordered By: Dr. Garsia on 10-11-2022 Creatinine [Mass/Vol] 1.05 mg/dL 0.55-1.02 [facility] Comment on above: The validity of the calculated GFR & GFRAA in patients over 70 years has not been determined. Clinical correlation is essential. Serum or plasma urea nitroge n measurement (mass/volume)Ordered By: Dr. Garsia on 10-11-2022 Urea nitrogen [Mass/Vol] 22 mg/dL 7-18 [facility] Thin prep Papanicolaou smear with manual screeningOrdered By: Dr. Garsia on 10-11-2022 Thin prep Papanicolaou smear with manual screening 67 U/L 15-37 [facility] Thin prep Papanicolaou smear with manual screening 6 5-15 [facility] No Panel InformationOrdered By: Dr. Srinivasan on 09-02-2022 Miscellaneous Test See comment [facility] Comment on above: TEST RESULT LIMITSI0 04-IgE Paper Wasp 1.48 Abnormal kU/L Class IIIClass Description: Levels of Specific IgE Class Description of Class ----- < 0.10 0 Negative 0.10 - 0.31 0/I Equivocal/Low 0.32 - 0.55 I Low 0.56 - 1.40 II Moderate 1.41 - 3.90 III High 3.91 - 19.00 IV Very High19.01 - 100.00 V Very High >100.00 Very High _ TESTING PERFORMED AT [facility]. ORIGINAL REPORT ON FILE IN LAB CONTAINS ADDITIONAL TEST SITE INFORMATION. Tryptase 6.6 ug/L 2.2-13.2 [facility] Comment on above: Performed at: [address] [id number] Director: Rodo Henderson MD, Phone: [phone] Absolute lymphocyte counton 11-24-2021 Lymphocytes Auto (Unsp spec) [#/Vol] 2.94 10*3/uL 0.83-4.51 [facility] Work Phone: Basophil percentageon 2021 Basophils/100 WBC (Bld) 0.7 % 0-1 [facility] Work Phone: Bilirubin [Mass/Vol] 0.50 mg/dL 0.20-1.00 [facility] Work Phone: Comment on above: For patients on eltr ombopag therapy, use of [place] TBIL is not recommended. Chloride [Moles/Vol] 107 mmol/L 98-107 [facility] Work Phone: Cholesterol [Mass/Vol] 125 mg/dL <200 [facility] Work Phone: Comment on above: <200 mg/dL Desirable 200-240 mg/dL Borderline >240 mg/dL High Risk Eosinophils/100 WBC (Bld) 3.2 % 0-5 [facility] Work Phone: Glucose [Mass/Vol] 134 mg/dL 74-[address] [facility] Work Phone: Comment on above: Fasting Glucose resu lt greater than or equal to 126 mg/dL suggests DIABETES MELLITUS per A.D.A. criteria. Neutrophils (Bld) [#/Vol] 4.0 10*3/uL 2.0-7.7 [facility] Work Phone: Neutrophils/100 WBC (Bld) 50.1 % 47-70 [facility] Work Phone: Potassium [Moles/Vol] 4.5 mmol/L 3.5-5.1 [facility] Work Phone: Protein [Mass/Vol] 6.7 g/dL 6.4-8.[address] [facility] Work Phone: Sodium [Moles/Vol] 140 mmol/L 136-[address] [facility] Work Phone: Triglyceride [Mass/Vol] 100 mg/dL [facility] Work Phone: Comment on above: The drugs N-Acetylcy steine and Metamizole may falsely depress this assay.Serum Triglycerides Reference Interval Normal <150 mg/dL Borderline high 150 - 199 mg/dL High 200 - 499 mg/dL Very High > or = 500 mg/dL WBC (Bld) [#/Vol] 8.0 10*3/uL 4.4-11.[address] [facility] Work Phone: Blood erythrocytes count (nu mber/volume)on 11-24-2021 RBC (Bld) [#/Vol] 4.69 10*6/uL 4.2-5.4 [facility] Work Phone: Blood hemoglobin measurement (mass/volume)on 11-24-2021 Hemoglobin (Bld) [Mass/Vol] 12.9 g/dL 12.0-15.0 [facility] Work Phone: Blood lymphocytes/100 leukoc yteson 11-24-2021 Lymphocytes/100 WBC (Bld) 36.6 % 19-41 [facility] Work Phone: Blood monocytes/100 leukocyt eson 11-24-2021 Monocytes/100 WBC (Bld) 9.3 % 0-10 [facility] Work Phone: Blood platelet mean volumeon 11-24-2021 Platelet mean volume (Bld) [Entitic vol] 10.0 fL 6.2-12.0 [facility] Work Phone: Determination of erythrocyte mean corpuscular volume (MCV)on 11-24-2021 MCV (RBC) [Entitic vol] 86.6 fL 81-99 [facility] Work Phone: Direct bilirubinon 2 Bilirubin.direct [Mass/Vol] 0.13 mg/dL 0.00-0.30 [facility] Work Phone: Hematocrit Auto (Bld) [Volum e fraction]on 11-24-2021 Hematocrit (Bld) [Volume fraction] 40.6 % 37-47 [facility] Work Phone: Laboratory - Chemistry and C hemistry - challengeon 11-24-2021 ALP [Catalytic activity/Vol] 96 U/L 45-117 [facility] Work Phone: ALT [Catalytic activity/Vol] 27 U/L 13-56 [facility] Work Phone: CO2 [Moles/Vol] 29.0 mmol/L 21.0-32.0 [facility] Work Phone: Globulin (S) [Mass/Vol] 3.0 g/dL 2.2-4.2 [facility] Work Phone: Magnesium [Mass/Vol] 2.2 mg/dL 1.6-2.6 [facility] Work Phone: Urea nitrogen/Creatinine [Mass ratio] 24.1 mg/mg 10-20 [facility] Work Phone: Laboratory - Hematology and Cell countson 11-24-2021 Erythrocyte distribution width (RBC) [Entitic vol] 45.5 fL 35.1-43.[address] [facility] Work Phone: Erythrocyte distribution width (RBC) [Ratio] 14.3 % 11.6-14.6 [facility] Work Phone: Immature granulocytes/100 WBC (Bld) 0.100 % 0.0-0.9 [facility] Work Phone: Comment on above: IG% - Immature Granu locytes (promyelocytes, myelocytes and metamyelocytes) > 1% indicates that a LEFT SHIFT is Present. MCH (RBC) [Entitic mass] 27.5 pg 27.0-32.0 [facility] Work Phone: Nucleated RBC/100 WBC (Bld) [Ratio] 0 % 0-5 [facility] Work Phone: MCHC Auto (RBC) [Mass/Vol]on 11-24-2021 MCHC (RBC) [Mass/Vol] 31.8 g/dL 32-36 [facility] Work Phone: No Panel Informationon 11-24 Estimated GFR (MDRD) Amer 62 mL/min >60 [facility] Work Phone: Comment on above: GFR Calc Estimated GFR (MDRD) Non-Af Amer 51 mL/min >60 [facility] Work Phone: Comment on above: Non- GFR Calc Platelets bldon 11-24-2021 Platelets (Bld) [#/Vol] 240 10*3/uL 150-450 [facility] Work Phone: Serum or plasma albumin bola urement (mass/volume)on 11-24-2021 Albumin [Mass/Vol] 3.7 g/dL 3.2-5.[address] [facility] Work Phone: Serum or plasma calcium bola urement (mass/volume)on 11-24-2021 Calcium [Mass/Vol] 9.2 mg/dL 8.5-10.[address] [facility] Work Phone: Serum or plasma cholesterol in HDL measurement (mass/volume)on 11-24-2021 Cholesterol in HDL [Mass/Vol] 53 mg/dL [facility] Work Phone: Comment on above: The drugs N-Acetylcy steine and Metamizole may falsely depress this assay. Reference Range HDL <40 mg/dL Low HDL Cholesterol HDL >or= 60 mg/dL High HDL Cholesterol Serum or plasma cholesterol in VLDL measurement (mass/volume)on 11-24-2021 Cholesterol in VLDL [Mass/Vol] 20 mg/dL 5-40 [facility] Work Phone: Serum or plasma creatinine m easurement (mass/volume)on 11-24-2021 Creatinine [Mass/Vol] 1.08 mg/dL 0.55-1.02 [facility] Work Phone: Comment on above: The validity of the calculated GFR & GFRAA in patients over 70 years has not been determined. Clinical correlation is essential. Serum or plasma low density lipoprotein (LDL) cholesterol measurement (mass/volume)on 11-24-2021 Cholesterol in LDL [Mass/Vol] 52 mg/dL 0-130 [facility] Work Phone: Serum or plasma urea nitroge n measurement (mass/volume)on 11-24-2021 Urea nitrogen [Mass/Vol] 26 mg/dL 7-18 [facility] Work Phone: Thin prep Papanicolaou smear with manual screeningon 11-24-2021 Thin prep Papanicolaou smear with manual screening 23 U/L 15-37 [facility] Work Phone: Thin prep Papanicolaou smear with manual screening 4 5-15 [facility] Work Phone: Vital Signs Date Time Vital Sign Value Performing Clinician Facility 01-12-2025 10:27-0400 Body height 170.2 cm Garret Sanchez MD Work Phone: [facility] 01-12-2025 10:27-0400 Body mass index (BMI) [Ratio] 26.63 kg/m2 Garret Sanchez MD Work Phone: [facility] 01-12-2025 10:27-0400 Body temperature 98.2 [degF] Garret Sanchez MD Work Phone: [facility] 01-12-2025 10:27-0400 Body weight 77.11 kg Garret Sanchez MD Work Phone: [facility] 10-13-2024 13:12-0400 Body height 170.2 cm Garret Sanchez MD Work Phone: [facility] 10-13-2024 13:12-0400 Body mass index (BMI) [Ratio] 26.16 kg/m2 Garret Sanchez MD Work Phone: [facility] 10-13-2024 13:12-0400 Body weight 75.75 kg Garret Sanchez MD Work Phone: [facility] 10-13-2024 13:12-0400 Diastolic blood pressure 66 mm[Hg] Garret Sanchez MD Work Phone: [facility] 10-13-2024 13:12-0400 Heart rate 68 /min Garret Sanhcez MD Work Phone: [facility] 10-13-2024 13:12-0400 Systolic blood pressure 162 mm[Hg] Garret Sanchez MD Work Phone: [facility] 07-07-2024 08:26-0500 Diastolic blood pressure 76 mm[Hg] Garret Sanchez MD Work Phone: [facility] 07-07-2024 08:26-0500 Systolic blood pressure 166 mm[Hg] Garret Sanchez MD Work Phone: [facility] 07-07-2024 08:02-0500 Body height 170.2 cm Garret Sanchez MD Work Phone: [facility] 07-07-2024 08:02-0500 Body mass index (BMI) [Ratio] 26.16 kg/m2 Garrte Sanchez MD Work Phone: [facility] 07-07-2024 08:02-0500 Body weight 75.75 kg Garret Sanchez MD Work Phone: [facility] 07-07-2024 08:02-0500 Heart rate 78 /min Garret Sanchez MD Work Phone: [facility] 03-03-2024 14:13-0400 Body height 170.2 cm Garret Sanchez MD Work Phone: [facility] 03-03-2024 14:13-0400 Body mass index (BMI) [Ratio] 26.16 kg/m2 Garret Sanchez MD Work Phone: [facility] 03-03-2024 14:13-0400 Body weight 75.75 kg Garret Sanchez MD Work Phone: [facility] 12-03-2023 11:54-0400 Body temperature 99.3 [degF] Garret Sanchez MD Work Phone: [facility] 12-03-2023 11:54-0400 Diastolic blood pressure 93 mm[Hg] Garret Sanchez MD Work Phone: [facility] 12-03-2023 11:54-0400 Heart rate 66 /min Garret Sanchez MD Work Phone: [facility] 12-03-2023 11:54-0400 Systolic blood pressure 149 mm[Hg] Garret Sanchez MD Work Phone: [facility] 11-11-2023 13:45-0400 Body height 170.[address] Wei Garsia Work Phone: [facility] 11-11-2023 13:45-0400 Body mass index (BMI) [Ratio] 27.6 kg/m2 Dr. Wei Garsia Work Phone: [facility] 11-11-2023 13:45-0400 Body weight 79.[address] Wei Garsia Work Phone: [facility] 11-11-2023 13:45-0400 Diastolic blood pressure 71 mm[Hg] Dr. Wei Garsia Work Phone: [facility] 11-11-2023 13:45-0400 Heart rate 65 /min Dr. Wei Garsia Work Phone: [facility] 11-11-2023 13:45-0400 Respiratory rate 18 /min Dr. Wei Garsia Work Phone: [facility] 11-11-2023 13:45-0400 Systolic blood pressure 109 mm[Hg] Dr. Wei Garsia Work Phone: [facility] 10-15-2023 11:25-0400 Body temperature 97 [degF] Garret Sanchez MD Work Phone: [facility] 10-15-2023 11:25-0400 Diastolic blood pressure 88 mm[Hg] Garret Sanchez MD Work Phone: [facility] 10-15-2023 11:25-0400 Heart rate 71 /min Garret Sanchez MD Work Phone: [facility] 10-15-2023 11:25-0400 Systolic blood pressure 135 mm[Hg] Garret Sanchez MD Work Phone: [facility] 07-09-2023 15:23-0500 Diastolic blood pressure 87 mm[Hg] Garret Sanchez MD Work Phone: [facility] 07-09-2023 15:23-0500 Heart rate 63 /min Garret Sanchez MD Work Phone: [facility] 07-09-2023 15:23-0500 Systolic blood pressure 148 mm[Hg] Garret Sanchez MD Work Phone: [facility] 04-09-2023 14:05-0400 Body height 170.2 cm Garret Sanchez MD Work Phone: [facility] 04-09-2023 14:05-0400 Body mass index (BMI) [Ratio] 26.16 kg/m2 Garret Sanchez MD Work Phone: [facility] [place] 04-09-2023 14:05-0400 Body temperature 97.59 [degF] Garret Sanchez MD Work Phone: [facility] 04-09-2023 14:05-0400 Body weight 75.75 kg Garret Sanchez MD Work Phone: [facility] 04-09-2023 14:05-0400 Diastolic blood pressure 60 mm[Hg] Garret Sanchez MD Work Phone: [facility] 04-09-2023 14:05-0400 Heart rate 63 /min Garret Sanchez MD Work Phone: [facility] 04-09-2023 14:05-0400 Systolic blood pressure 144 mm[Hg] Garret Sanchez MD Work Phone: [facility] 01-01-2023 13:49-0400 Body temperature 97.5 [degF] Garret Sanchez MD Work Phone: [facility] 01-01-2023 13:49-0400 Diastolic blood pressure 88 mm[Hg] Garret Sanchez MD Work Phone: [facility] 01-01-2023 13:49-0400 Systolic blood pressure 146 mm[Hg] Garret Sanchez MD Work Phone: [facility] 12-09-2022 10:34-0400 Body height 170.[address] Wei Garsia Work Phone: [facility] 12-09-2022 10:34-0400 Body mass index (BMI) [Ratio] 27.1 kg/m2 Dr. Wei Garsia Work Phone: [facility] 12-09-2022 10:34-0400 Body weight 78.[address] Wei Garsia Work Phone: [facility] 12-09-2022 10:34-0400 Diastolic blood pressure 74 mm[Hg] Dr. Wei Garsia Work Phone: [facility] 12-09-2022 10:34-0400 Heart rate 72 /min Dr. Wei Garsia Work Phone: [facility] 12-09-2022 10:34-0400 Respiratory rate 16 /min Dr. Wei Garsia Work Phone: [facility] 12-09-2022 10:34-0400 Systolic blood pressure 133 mm[Hg] Dr. Wei Garsia Work Phone: [facility] 10-02-2022 13:18-0500 Body mass index (BMI) [Ratio] 26.16 kg/m2 Garret Sanchez MD Work Phone: [facility] 10-02-2022 13:18-0500 Body weight 75.75 kg Garret Sanchez MD Work Phone: [facility] 10-02-2022 13:18-0500 Diastolic blood pressure 74 mm[Hg] Garret Sanchez MD Work Phone: [facility] 10-02-2022 13:18-0500 Heart rate 88 /min Garret Sanchez MD Work Phone: [facility] 10-02-2022 13:18-0500 Systolic blood pressure 142 mm[Hg] Garret Sanchez MD Work Phone: [facility] 06-07-2022 11:11-0400 Body height 170.[address] Wei Garsia Work Phone: [facility] 06-07-2022 11:11-0400 Body mass index (BMI) [Ratio] 27.4 kg/m2 Dr. Wei Garsia Work Phone: [facility] 06-07-2022 11:11-0400 Body weight 79.[address] Wei Garsia Work Phone: [facility] 06-07-2022 11:11-0400 Diastolic blood pressure 64 mm[Hg] Dr. Wei Garsia Work Phone: [facility] 06-07-2022 11:11-0400 Heart rate 64 /min Dr. Wei Garsia Work Phone: [facility] 06-07-2022 11:11-0400 Respiratory rate 16 /min Dr. Wei Garsia Work Phone: [facility] 06-07-2022 11:11-0400 Systolic blood pressure 142 mm[Hg] Dr. Wei Garsia Work Phone: [facility] 11-07-2021 10:31-0400 Body height 170.[address] Wei Garsia Work Phone: [facility] Work Phone: 11-07-2021 10:31-0400 Body mass index (BMI) [Ratio] 26.2 kg/m2 Dr. Wei Garsia Work Phone: [facility] Work Phone: 11-07-2021 10:31-0400 Body weight 75.[address] Wei Garsia Work Phone: [facility] Work Phone: 11-07-2021 10:31-0400 Diastolic blood pressure 64 mm[Hg] Dr. Wei Garsia Work Phone: [facility] Work Phone: 11-07-2021 10:31-0400 Heart rate 88 /min Dr. Wei Garsia Work Phone: [facility] Work Phone: 11-07-2021 10:31-0400 Respiratory rate 20 /min Dr. Wei Garsia Work Phone: [facility] Work Phone: 11-07-2021 10:31-0400 Systolic blood pressure 120 mm[Hg] Dr. Wei Garsia Work Phone: [facility] Work Phone: Encounters Encounter Date Encounter Type Care Provider Facility Start: 01-26-2025 ambulatory Wei Garsia Facility: [facility] Start: 01-17-2025 End: 01-17-[address] Wei Garsia DO Work Phone: [facility] Work Phone: Start: 01-17-2025 End: 01-17-[address] Wei Garsia DO -Laboratory Gera Alford [facility] Start: 01-17-2025 End: 01-17-2025 ambulatory [facility] Facility:[facility] Start: 01-12-2025 End: 01-12-2025 Patient encounter procedure Garret Sanchez MD Work Phone: [facility] Comment on above: Blepharospasm of bot h eyes (Primary Dx); Torticollis; Cervical dystonia Start: 01-12-2025 End: 01-12-2025 ambulatory WEI [facility] Start: 10-13-2024 End: 10-13-2024 Patient encounter procedure Garret Sanchez MD Work Phone: [facility] Comment on above: Blepharospasm of bot h eyes (Primary Dx) Start: 10-13-2024 End: 10-13-2024 ambulatory GARRET CONWEAVER [facility] Start: 07-07-2024 End: 07-07-2024 Patient encounter procedure Garret Sanchez MD Work Phone: [facility] Comment on above: Blepharospasm of bot h eyes (Primary Dx); Torticollis Start: 07-07-2024 End: 07-07-2024 ambulatory GARRET [facility] Start: 04-06-2024 End: 04-06-2024 ambulatory Wei JoyaSun Facility:[facility] Start: 03-28-2024 End: 03-28-2024 Emergency department patient visit Max Jacobs Facility:[facility] Start: 03-03-2024 End: 03-03-2024 Patient encounter procedure Garret Sanchez MD Work Phone: [facility] Comment on above: Cervical dystonia (P rimary Dx) Start: 03-03-2024 End: 03-03-2024 ambulatory GARRET SANCHEZ [facility] Start: 02-16-2024 End: 02-16-2024 Telephone encounter Garret Sanchez MD Work Phone: [facility] Start: 12-03-2023 End: 12-03-2023 Patient encounter procedure Garret Sanchez MD Work Phone: [facility] Comment on above: Cervical dystonia (P rimary Dx) Start: 11-12-2023 End: 11-12-[address] Wei Garsia Work Phone: [facility] Work Phone: Start: 11-12-2023 End: 11-12-[address] Wei Garsia Work Phone: [facility] Start: 11-11-2023 End: 11-11-[address] Wei Garsia Work Phone: [facility] Work Phone: Start: 11-11-2023 End: 11-11-[address] [facility] Start: 11-11-2023 End: 11-11-[address] Wei Garsia Work Phone: [facility] Work Phone: Start: 10-28-2023 End: 10-28-2023 ambulatory [facility] Work Phone: Start: 10-28-2023 End: 10-28-2023 Patient encounter procedure [facility] Work Phone: Start: 10-15-2023 End: 10-15-2023 Patient encounter procedure Garret Sanchez MD Work Phone: [facility] Comment on above: Cervical dystonia (P rimary Dx) Start: 09-02-2023 End: 09-02-2023 ambulatory [facility] Work Phone: Start: 09-02-2023 End: 09-02-2023 Patient encounter procedure [facility]-Laboratory, Specimen Work Phone: Start: 07-09-2023 End: 07-09-2023 Patient encounter procedure Garret Sanchez MD Work Phone: [facility] Comment on above: Cervical dystonia (P rimary Dx) Start: 04-09-2023 End: 04-09-2023 Patient encounter procedure Garret Sanchez MD Work Phone: [facility] Comment on above: Cervical dystonia (P rimary Dx) Start: 01-01-2023 End: 01-01-2023 Patient encounter procedure Garret Sanchez MD Work Phone: [facility] Comment on above: Blepharospasm (Prima ry Dx) Start: 12-11-2022 End: 12-11-[address] Wei Garsia Work Phone: [facility] Work Phone: Start: 12-11-2022 End: 12-11-[address] [facility] Start: 12-09-2022 End: 12-09-[address] Wei Garsia Work Phone: [facility] Start: 10-11-2022 End: 10-11-2022 ambulatory [facility] Work Phone: Start: 10-11-2022 End: 10-11-2022 [facility] Start: 10-02-2022 End: 10-02-2022 Patient encounter procedure Garret Sanchez MD Work Phone: [facility] Comment on above: Blepharospasm (Prima ry Dx) Start: 09-02-2022 End: 09-02-[address] Wei Garsia Work Phone: [facility] Work Phone: Start: 09-02-2022 End: 09-02-[address] Wei Garsia Work Phone: [facility]-Laboratory Start: 06-07-2022 End: 06-07-[address] Wei Garsia Work Phone: [facility] Start: 11-24-2021 End: 11-24-[address] Wei Garsia Work Phone: [facility]-Laboratory Start: 11-07-2021 End: 11-07-[address] Wei Garsia Work Phone: [facility] Procedures Date Procedure Procedure Detail Performing Clinician Start: 01-17-2025 Vitamin D, 25-hydrox y measurement Dr. Wei Garsia DO Work Phone: Comment on above: Vitamin D StatusDefi ciency: <20 ng/mL (50nmol/L)Insufficiency: 20-30 ng/mL (50-75 nmol/L)Sufficiency: 30-100 ng/mL (75-250 nmol/L)Toxicity: >100 ng/mL (>250 nmol/L) Start: 09-02-2023 Urine culture Start: 10-11-2022 Plain chest X-ray Plan of Treatment Date Care Activity Detail Author Start: 04-13-2025 End: 04-13-2025 Patient encounter procedure 04/13/2025 10:30 AM EDT Procedure Visit [address] [place] [address] Garret Sanchez MD [address] [place] [address] Luis M Taylor [place], [place] [address] [facility] Start: 04-04-2025 Influenza vaccination Influenza Vaccine (Season Ended) [facility] Start: 01-12-2025 End: 01-12-2025 Patient encounter procedure 01/12/2025 10:30 AM EDT Procedure Visit [facility] Neu[facility] [address] [place] [address] [place] [address] [facility] Start: 10-13-2024 End: 10-13-2024 Patient encounter procedure 10/13/2024 1:00 PM EDT Procedure Visit [facility] [address] [facility] [place] [address] [place] [address] [facility] Start: 05-26-2024 End: 05-26-2024 Patient encounter procedure 05/26/2024 11:30 AM EDT Procedure Visit [facility] [address] [facility] [place] [address] [place] [address] Garret Sanchez MD [address] [place] [address] [place] [address] [facility] Start: 04-04-2024 COVID-19 Vaccine ( season) COVID-19 Vaccine ( season) [facility] Start: 04-04-2024 Influenza vaccination [facility] Start: 03-03-2024 End: 03-03-2024 Patient encounter procedure 03/03/2024 2:00 PM EDT Procedure Visit [facility] [address] [facility] [place] [address] Garret Sanchez MD [address] [facility] [place] [address] [facility] Start: 12-03-2023 End: 12-03-2023 Patient encounter procedure 12/03/2023 12:00 PM EDT Procedure Visit [facility] [address] [place] [address] Garret Sanchez MD [address] [place] [address] [place] [address] [facility] Start: 10-28-2023 [facility] Start: 10-15-2023 End: 10-15-2023 Patient encounter procedure 10/15/2023 11:45 AM EDT Procedure Visit [facility] [address] [place] [address] [place] [address] Garret Sanchez MD [address] [place] [address] [facility] Start: 07-09-2023 End: 07-09-2023 Patient encounter procedure 07/09/2023 3:00 PM EST Procedure Visit [facility] [address] [facility] [place] [address] [place] [address] Garret Sanchez MD [address] [facility] [place] [address] [facility] Start: 04-09-2023 End: 04-09-2023 Patient encounter procedure 04/09/2023 Procedure Visit Neurology Garret Sanchez MD [address] [facility] [place] [address] [facility] Start: 04-04-2023 COVID-19 Vaccine ( season) COVID-19 Vaccine ( season) [facility] Start: 04-04-2023 Influenza vaccination Influenza Vaccine (#1) [facility] Start: 01-01-2023 End: 01-01-2023 Patient encounter procedure 01/01/2023 Procedure Visit Neurology Garret Sanchez MD [address] [facility] [place] [address] [facility] Start: 02-15-2022 COVID-19 Vaccine (5 - Booster for Moderna series) COVID-19 Vaccine (5 - Booster for Moderna series) [facility] Start: 01-04-2016 DTaP/Tdap/Td Vaccines (2 - Td or Tdap) DTaP/Tdap/Td Vaccines (2 - Td or Tdap) [facility] Start: 2012 RSV Immunization for Adults (1 - 1-dose 75+ series) RSV Immunization for Adults (1 - 1-dose 75+ series) [facility] Start: 2002 Pneumococcal Vaccine: 65+ Years (1 - PCV) Pneumococcal Vaccine: 65+ Years (1 - PCV) [facility] Start: 2002 Pneumococcal Vaccine: 65+ Years (1 of 1 - PCV) Pneumococcal Vaccine: 65+ Years (1 of 1 - PCV) [facility] Start: 1997 RSV Immunization aged 60 or older (1 - 1-dose 60+ series) RSV Immunization aged 60 or older (1 - 1-dose 60+ series) [facility] Start: 11-30-1987 Pneumococcal Vaccine: 50+ Years (1 of 1 - PCV) Pneumococcal Vaccine: 50+ Years (1 of 1 - PCV) [facility] Start: 11-30-1955 Diabetes mellitus screening Diabetes Screening [facility] Start: 1949 Depression Screening Depression Screening [facility] Start: 1935 Lipid panel Lipid Panel [facility] Start: 1935 Medicare Annual Wellness (AWV) Medicare Annual Wellness (AWV) [facility] Start: 1935 Screening for osteoporosis Bone Density Scan [facility] Antibody to lupus La protein measurement [facility] Antibody to SS-A measurement [facility] Centromere protein B Ab [Units/volume] in Serum [facility] Chromatin Ab [Units/volume] in Serum or Plasma [facility] Clam IgE Ab [Units/volume] in Serum [facility] Codfish IgE Ab [Units/volume] in Serum [facility] Four [place]aks IgE Ab [Units/volume] in Serum [facility] Cow milk IgE Ab [Units/volume] in Serum [facility] DNA double strand Ab [Units/volume] in Serum [facility] Egg white IgE Ab [Units/volume] in Serum [facility] Yani-1 extractable nuclear Ab [Units/volume] in Serum [facility] Nuclear Ab [Presence ] in Serum [facility] Peanut IgE Ab [Units/volume] in Serum [facility] DRY CHAIN WORKER antibody measurement [facility] Scallop RAST [facility] SCL-70 extractable nuclear Ab [Units/volume] in Serum by Immunoassay [facility] Sesame seed RAST [facility] Shrimp IgE Ab [Units/volume] in Serum [facility] Anderson extractable nuclear Ab [Presence] in Serum [facility] Soybean IgE Ab [Units/volume] in Serum [facility] Atlas RAST [facility] Wheat IgE Ab [Units/volume] in Serum [facility] Immunizations Immunization Date Immunization Notes Care Provider Fa cili 05-15-2022 influenza virus vaccine, unspecified formulation Garret Sanchez MD Work Phone: [facility] 09-28-2020 Covid (Moderna) Dr. Wei daigle Work Phone: [facility] 08-31-2020 Covid (Moderna) Dr. Wei daigle Work Phone: [facility] 05-09-2020 influenza, injectabl e, quadrivalent, preservative free [facility] 05-09-2020 influenza, seasonal, injectable Dr. Wei Garsia Work Phone: [facility] Payers Date Payer Category Payer Self-pay [id number] 2010 Commercial Managed C are - [facility] [id number] 2010 Unknown [facility] [id number] 2010-Present [address] [place] [address] Commercial [id number] 2010 Unknown [id number] 2004 Medicare [id number] 2002 Medicare [id number] Unknown [id number] Unknown [id number] Unknown [id number] Unknown [id number] Social History Date Type Detail Facility Start: 11-07-2021 End: 11-11-2023 Tobacco smoking status OKIS Unknown if ever smoked [facility] Start: 08-25-2020 None [facility] Start: 08-25-2020 Spouse/ Signif icant Other [facility] Start: 08-13-2018 Non-smoker [facility] Start: 1935 Sex Assigned At Female [facility] Start: 03-28-2024 Tobacco smoking status NHIS Never smoked tobacco [facility] Start: 01-01-2023 End: 01-12-2025 Alcohol intake Ex-drinker (finding) [facility] Start: 1935 Sex Assigned At Not on file [facility] Start: 09-22-2022 End: 04-09-2023 Exposure to SARS-CoV-2 (event) Not sure [facility] Start: 01-01-2023 End: 01-12-2025 History of Social function [facility] Start: 01-01-2023 End: 01-12-2025 Tobacco use panel [facility] Start: 03-04-2022 Sex Female (finding) [facility] Clinical Notes 10-02-2022 to 01-12-2025 Viv Valverde MA - 01/12/2025 10:30 AM Timbo Sanchez MD - 01/12/2025 10:30 AM Timbo Sanchez MD - 10/13/2024 1:00 PM EDTJaklarissa Valverde MA - 10/13/2024 1:00 PM EDT Note Date & Type Note Facility 01-12-2025 History of Presen t illness Narrative Administrations This Visit onabotulinumtoxin A (BOTOX) injection 300 Units Admin Date 01/12/25 Action Given Dose 300 Units Route IntraMUSCular Site Other Administered By Garret Sanchez MD Ordering Provider: Garret Sanchez MD NDC: 5478-0570-55 (1) and [id number] (1) Lot#: [id number] (1), [id number] (1) Director Investment Banking: [employer] Patient Supplied?: No DEPARTMENT OF NEUROLOGY BOTOX PROCEDURE NOTE FOR [...] 2. L Frontalis 10 units 3. R Nurse Executive 10 units 4. L Nurse Executive 10 units 5. Right superior eyelid 7 [...] Comments: Patient tolerated procedure well. We will inject Botox doses in both periorbital region as well as in both trapezius. Patient will return for to the neurology clinic in 3 months and at that time we will repeat Botox injections. [x] Pt tolerated procedure well. Pt advised to avoid exercise or strenuous physical activity for 24 hours. Post treatment expectations reviewed in detail. Garret Sanchez MD documented in this encounter [facility] 01-12-2025 Note DEPARTMENT OF NEUROL OGY BOTOX PROCEDURE [...] 2. L Frontalis 10 units 3. R Nurse Executive 10 units 4. L Nurse Executive 10 units 5. Right superior eyelid 7 [...] Comments: Patient tolerated procedure well. We will inject Botox doses in both periorbital region as well as in both trapezius. Patient will return for to the neurology clinic in 3 months and at that time we will repeat Botox injections. [x] Pt tolerated procedure well. Pt advised to avoid exercise or strenuous physical activity for 24 hours. Post treatment expectations reviewed in detail. Garret Sanchez MD [facility] 10-13-2024 History of Presen t illness Narrative DEPARTMENT [...] 2. L Frontalis 10 units 3. R Nurse Executive 10 units 4. L Nurse Executive 10 units 5. Right superior eyelid 7 [...] Comments: Patient tolerated procedure well. We will inject Botox doses in both periorbital region as well as in both trapezius. Patient will return for to the neurology clinic in 3 months and at that time we will repeat Botox injections. [x] Pt tolerated procedure well. Pt advised to avoid exercise or strenuous physical activity for 24 hours. Post treatment expectations reviewed in detail. Garret Sanchez MD Administrations This Visit onabotulinumtoxin A (BOTOX) injection 200 Units Admin Date 10/13/24 Action Given Dose 200 Units Route IntraMUSCular Site Other Administered By Garret Sanchez MD Ordering Provider: Garret Sanchez MD [facility]: [id number] (x 3) Lot#: [id number] (x 3) Director Investment Banking: [employer] Patient Supplied?: No documented in this encounter [facility] 10-13-2024 Note DEPARTMENT OF NEUROL OGY BOTOX PROCEDURE [...] 2. L Frontalis 10 units 3. R Nurse Executive 10 units 4. L Nurse Executive 10 units 5. Right superior eyelid 7 [...] Comments: Patient tolerated procedure well. We will inject Botox doses in both periorbital region as well as in both trapezius. Patient will return for to the neurology clinic in 3 months and at that time we will repeat Botox injections. [x] Pt tolerated procedure well. Pt advised to avoid exercise or strenuous physical activity for 24 hours. Post treatment expectations reviewed in detail. Garret Sanchez MD [facility] 07-07-2024 History of Presen t illness Narrative DEPARTMENT [...] 2. L Frontalis 10 units 3. R Nurse Executive 10 units 4. L Nurse Executive 10 units 5. Right superior eyelid 7 [...] Comments: Patient tolerated procedure well. We will inject Botox doses in both periorbital region as well as in both trapezius. Patient will return for to the neurology clinic in 3 months and at that time we will repeat Botox injections. [x] Pt tolerated procedure well. Pt advised to avoid exercise or strenuous physical activity for 24 hours. Post treatment expectations reviewed in detail. Garret Sanchez MD Administrations This Visit onabotulinumtoxin A (BOTOX) injection 200 Units Admin Date 07/07/2024 Action Given Dose 300 Units Route IntraMUSCular Site Other Administered By [facility] Ordering Provider: Garret Sanchez MD [facility]:[id number] x3 Lot#: [id number] x3 Director Investment Banking: [employer] Patient Supplied?: no, buy and bill documented in this encounter [facility] 07-07-2024 Note DEPARTMENT OF NEUROL OGY BOTOX PROCEDURE [...] 2. L Frontalis 10 units 3. R Nurse Executive 10 units 4. L Nurse Executive 10 units 5. Right superior eyelid 7 [...] Comments: Patient tolerated procedure well. We will inject Botox doses in both periorbital region as well as in both trapezius. Patient will return for to the neurology clinic in 3 months and at that time we will repeat Botox injections. [x] Pt tolerated procedure well. Pt advised to avoid exercise or strenuous physical activity for 24 hours. Post treatment expectations reviewed in detail. Garret Sanchez MD [facility] 03-03-2024 History of Presen t illness Narrative DEPARTMENT [...] 2. L Frontalis 10 units 3. R Nurse Executive 10 units 4. L Nurse Executive 10 units 5. Right superior eyelid 7 [...] Comments: Patient tolerated procedure well. We will inject Botox doses in both periorbital region as well as in both trapezius. Patient will return for to the neurology clinic in 3 months and at that time we will repeat Botox injections. [x] Pt tolerated procedure well. Pt advised to avoid exercise or strenuous physical activity for 24 hours. Post treatment expectations reviewed in detail. Garret Sanchez MD Administrations This Visit onabotulinumtoxin A (BOTOX) injection 200 Units Admin Date 03/03/2024 Action Given Dose 250 Units Route IntraMUSCular Site Other Administered By [facility] Ordering Provider: Garret Sanchez MD [facility]:[id number] x3 Lot#: [id number] [id number] Director Investment Banking: [employer] Patient Supplied?: No, buy and bill documented in this encounter [facility] 03-03-2024 Note DEPARTMENT OF NEUROL OGY BOTOX PROCEDURE [...] 2. L Frontalis 10 units 3. R Nurse Executive 10 units 4. L Nurse Executive 10 units 5. Right superior eyelid 7 [...] Comments: Patient tolerated procedure well. We will inject Botox doses in both periorbital region as well as in both trapezius. Patient will return for to the neurology clinic in 3 months and at that time we will repeat Botox injections. [x] Pt tolerated procedure well. Pt advised to avoid exercise or strenuous physical activity for 24 hours. Post treatment expectations reviewed in detail. Garret Sanchez MD [facility] 02-16-2024 Telephone encount er Note error [facility] 02-16-2024 Miscellaneous Notes Formattin g of this note might be different from the original. error documented in this encounter [facility] 12-03-2023 History of Presen t illness Narrative DEPARTMENT [...] 2. L Frontalis 10 units 3. R Nurse Executive 10 units 4. L Nurse Executive 10 units 5. Right superior eyelid 7 [...] Comments: Patient tolerated procedure well. We will inject Botox doses in both periorbital region as [...] A (BOTOX) injection 200 Units Admin Date 12/03/2023 Action Given Dose 250 Units Route IntraMUSCular Site Other Administered By [facility] Ordering Provider: Garret Sanchez MD [facility]:[id number] [id number] Lot#: [id number] Director Investment Banking: [employer] Patient Supplied?: No, buy and bill documented in this encounter [facility] 10-15-2023 History of Presen t illness Narrative Patient presented to the neurology clinic for Botox injection for her dystonia. Unfortunately patient had developed a severe rash extending to both zygomatic regions. Therefore, we are not going to be able to perform Botox injections. Patient has been rescheduled for her usual treatment in 3 weeks. Thank you. GARRET SANCHEZ MD documented in this encounter [facility] 07-09-2023 History of Presen t illness Narrative [...] 2. L Frontalis 10 units 3. R Nurse Executive 10 units 4. L Nurse Executive 10 units 5. Right superior eyelid 7 [...] SANCHEZ MD Ordering Provider: GARRET SANCHEZ MD [facility]: [id number] [id number] Lot#: [id number] Director Investment Banking: [employer] Patient Supplied?: No documented in this encounter [facility] [place] 04-09-2023 History of Presen t illness Narrative [...] 2. L Frontalis 10 units 3. R Nurse Executive 10 units 4. L Nurse Executive 10 units 5. Right superior eyelid 7 [...] GARRET SANCHEZ MD documented in this encounter [facility] 04-09-2023 History of Presen t illness Narrative [...] 2. L Frontalis 10 units 3. R Nurse Executive 10 units 4. L Nurse Executive 10 units 5. Right superior eyelid 7 [...] SANCHEZ MD Ordering Provider: GARRET SANCHEZ MD [facility]: [id number], [id number] Lot#: [id number] Director Investment Banking: [employer] Patient Supplied?: No documented in this encounter [facility] 01-01-2023 History of Presen t illness Narrative [...] 2. L Frontalis 10 units 3. R Nurse Executive 10 units 4. L Nurse Executive 10 units 5. Right superior eyelid 7 [...] SANCHEZ MD Ordering Provider: GARRET SANCHEZ MD [facility]: [id number] Lot#: [id number] Director Investment Banking: [employer] Patient Supplied?: No Administrations This Visit onabotulinumtoxin A (BOTOX) injection 200 Units Admin Date 01/01/23 Action Given Dose 200 Units Route IntraMUSCular Site Other Administered By GARRET SANCHEZ MD Ordering Provider: GARRET SANCHEZ MD [facility]: [id number] Lot#: [id number] Director Investment Banking: [employer] Patient Supplied?: No documented in this encounter [facility] 10-02-2022 History of Presen t illness Narrative DEPARTMENT [...] 2. L Frontalis 10 units 3. R Nurse Executive 10 units 4. L Nurse Executive 10 units 5. Right superior eyelid 7 [...] A (BOTOX) injection 200 Units Admin Date 10/02/2022 Action Given Dose 200 Units Route IntraMUSCular Site Other Administered By Garret Sanchez MD Ordering Provider: Garret Sanchez MD [facility]:[id number] Lot#: [id number] Director Investment Banking: [employer] Patient Supplied?: No documented in this encounter [facility] Evaluation note Diagnosis Onset Date Essential hypertension chron ic Nonrheumatic mitral (valve) prolapse chronic Paroxysmal atrial fibrillation chronic SVT (supraventricular tachycardia) chronic [facility] Work Phone: Evaluation note* Diagnosis Onset Date Resolution Status HLD (hyperlipidemia) acute Essential hypertension chron ic Nonrheumatic mitral (valve) prolapse chronic Paroxysmal atrial fibrillation chronic SVT (supraventricular tachycardia) chronic [facility] Work Phone: Evaluation noteNo assessment information available [facility] Work Phone: Evaluation note* Diagnosis Blepharospasm- Primary documented in this encounter [facility]Evaluation note* Diagnosis Cervical dystonia- Primary Spasmodic torticollis [facility] Diagnosis Cervical dystonia- Primary Spasmodic torticollis documented in this encounter [facility]* Diagnosis Cervical dystonia- Primary Spasmodic torticollis documented in this encounter [facility]* Diagnosis Cervical dystonia- Primary Spasmodic torticollis documented in this encounter [facility]* Diagnosis Onset Date Resolution Status HLD (hyperlipidemia) acute Essential hypertension chron ic Paroxysmal atrial fibrillation [facility] Work Phone: Evaluation note* Diagnosis Cervical dystonia- Primary Spasmodic torticollis [facility] Diagnosis Blepharospasm of both eyes- Primary Torticollis Torticollis, unspecified [facility] Diagnosis Blepharospasm- Primary [facility] Diagnosis Blepharospasm of both eyes- Primary [facility] Diagnosis Blepharospasm of both eyes- Primary Torticollis Torticollis, unspecified Cervical dystonia Spasmodic torticollis [facility]No reason for referral information [facility] Work Phone: Chief Complaint and Reason for Visit Chief Complaint 6 M FU e order Reason for Visit Essential hypertensi on Nonrheumatic mitral (valve) prolapse Paroxysmal atrial fibrillation SVT (supraventricular tachycardia) Chief Complaint 6 M FU Reason for Visit HLD (hyperlipidemia) Essential hypertension Nonrheumatic mitral (valve) prolapse Paroxysmal atrial fibrillation SVT (supraventricular tachycardia) Chief Complaint ADD CXR - COUGH, TV HOST CKLES Chief Complaint ADD CXR - COUGH, TV HOST CKLES 6 M FU INT LABS Reason for Visit HLD (hyperlipidemia) Essential hypertension Nonrheumatic mitral (valve) prolapse Paroxysmal atrial fibrillation SVT (supraventricular tachycardia) Chief Complaint OVERDUE FOR FU / LAS T SEEN 2021 E-ORDER Reason for Visit HLD (hyperlipidemia) Essential hypertension Paroxysmal atrial fibrillation Advance Directives No Advanced Directives Records Found Advance Directive Response Recorded Date/ Time Living Will Yes January 05, 2021 1 1:30am Power of Mountain Bike Guide Yes January 05, 2021 11:30am Advance Directive Response Recorded Date/ Time Living Will Yes January 05, 2021 1 0:30am Power of Mountain Bike Guide Yes January 05, 2021 10:30am Reason for Referral Specialty Diagnoses / Procedures Referred By Contac t Referred To Contact Diagnoses Blepharospasm Diana Hernandez APRN - [employer] [address] [place] [address] Referral ID Status Reason Start Date Expiration Date V isits Requested Visits Authorized [id number] Pending Review 01/01/2023 06/30/2023 1 1 Specialty Diagnoses / Procedures Referred By Contac t Referred To Contact Diagnoses Cervical dystonia Garret Sanchez MD [address] [place] [address] Referral ID Status Reason Start Date Expiration Date V isits Requested Visits Authorized [id number] Pending Review 04/09/2023 10/06/2023 1 1 Referral ID Status Reason Start Date Expiration Date V isits Requested Visits Authorized [id number] Pending Review 07/09/2023 01/05/2024 1 1 Specialty Diagnoses / Procedures Referred By Contac t Referred To Contact Diagnoses Cervical dystonia Diana Hernandez APRN - [employer] [address] [place] [address] Referral ID Status Reason Start Date Expiration Date V isits Requested Visits Authorized [id number] Pending Review 12/03/2023 11/27/2024 1 1 Referral ID Status Reason Start Date Expiration Date V isits Requested Visits Authorized [id number] Pending Review 03/03/2024 02/26/2025 1 1 Referral ID Status Reason Start Date Expiration Date V isits Requested Visits Authorized [id number] Pending Review 10/02/2022 03/31/2023 1 1 Summary Purpose Family History No Family History Records Found Additional Source Comments Goals (unrecognized section and content) Goals may be documented in a n alternate sectionGoals may be documented in an alternate sectionGoals may be documented in an alternate sectionGoals may be documented in an alternate sectionGoals may be documented in an alternate sectionGoals may be documented in an alternate sectionGoals may be documented in an alternate sectionGoals may be documented in an alternate sectionGoals may be documented in an alternate section Care Teams (unrecognized sec tion and content) Team Status: Active Member Role Status Dates Dr. Wei Garsia , DO Family Provider Active Dr. Wei Garsia , DO Primary Care Provider Active Team Status: Inactive Member Role Status Dates Dr. Wei Garsia , DO Primary Care Provider, Referrin g Provider Active Dr. Shon Jordan MD Attending Provider Active Team Status: Inactive Member Role Status Dates Dr. Wei Garsia , DO Primary Care Provider Active Dr. Aroldo Srinivasan MD Attending Provider Active Team Status: Inactive Member Role Status Dates Dr. Wei Garsia , DO Primary Care Prov ider, Attending Provider, Referring Provider Active Team Status: Inactive Member Role Status Dates Dr. Wei Garsia , DO Primary Care Provider, Referrin g Provider Active Aftab Patton MARKETING ADMINISTRATOR, MARKETING ADMINISTRATOR-C Attending Provider Active Team Status: Inactive Member Role Status Dates Dr. Wei Garsia , DO Primary Care Prov ider, Attending Provider, Referring Provider Active Aftab Patton MARKETING ADMINISTRATOR, MARKETING ADMINISTRATOR-C Other Provider Active Secretary Office Clerk Relationship Specialty Start Date End Date Wei Garsia [address] [place] [phone] PCP - General 01/19/20 Secretary Office Clerk Relationship Specialty Start Date End Date Wei Garsia [address] [place] [phone] PCP - General 01/19/20 Secretary Office Clerk Relationship Specialty Start Date End Date Wei Garsia [address] [place] [phone] PCP - General 01/19/20 Secretary Office Clerk Relationship Specialty Start Date End Date Wei Garsia [address] [place] [phone] PCP - General 01/19/20 Team Status: Inactive Member Role Status Dates Dr. Wei Garsia , DO Primary Care Provider, Attendin g Provider Active Secretary Office Clerk Relationship Specialty Start Date End Date Wei Garsia [address] [place] [address] PCP - General 01/19/20 Team Status: Inactive Member Role Status Dates Dr. Wei Garsia , DO Primary Care Provider, Referrin g Provider Active Dr. Christopher Tavarez MD Attending Provider Active Team Status: Active Member Role Status Dates Dr. Wei Garsia , DO Primary Care Provider, Attendin g Provider Active Team Status: Inactive Member Role Status Dates Dr. Wei Garsia , DO Primary Care Provider Active Dr. Christopher Tavarez MD Attending Provider, Referring Provider Active Secretary Office Clerk Relationship Specialty Start Date End Date Wei Garsia [address] [place] [address] PCP - General 01/19/20 Secretary Office Clerk Relationship Specialty Start Date End Date Wei Garsia [address] [place] [phone] PCP - General 01/19/20 Secretary Office Clerk Relationship Specialty Start Date End Date Wei Garsia [address] [place] [address] PCP - General 01/19/20 Secretary Office Clerk Relationship Specialty Start Date End Date Wei Garsia [address] [place] [address] PCP - General 01/19/20 Secretary Office Clerk Relationship Specialty Start Date End Date Wei Garsia [address] [place] [address] PCP - General 01/19/20 Team Status: Active Member Role Status Dates Dr. Wei Garsia DO Primary Care Provider Active Team Status: Inactive Member Role Status Dates Dr. Wei Garsia DO Primary Care Provider Active Start: January 17, 2025 End: January 17, 2025 Dr. Wei Garsia DO Attending Provider Active Start: January 17, 2025 End: January 17, 2025 Reason for Visit (unrecogniz ed section and content) Reason Comments Procedure Specialty Diagnoses / Procedures Referred By Contac t Referred To Contact Diagnoses Blepharospasm of both eyes Torticollis Garret Sanchez MD [address] [facility] [place] [address] Phone: tel: fax: Referral ID Status Reason Start Date Expiration Date V isits Requested Visits Authorized [id number] Pending Review 07/07/2024 07/02/2025 1 1 Reason Comments Procedure Botox- Cervical Dyst onia Specialty Diagnoses / Procedures Referred By Contac t Referred To Contact Diagnoses Blepharospasm iDana Hernandez, PUBLIC HEALTH ENGINEER - [employer] [address] [place] [address] Referral ID Status Reason Start Date Expiration Date V isits Requested Visits Authorized [id number] Pending Review 01/01/2023 06/30/2023 1 1 Reason Comments Procedure Botox Specialty Diagnoses / Procedures Referred By Contac t Referred To Contact Diagnoses Cervical dystonia Garret Sanchez MD [address] [facility] [place] [address] Referral ID Status Reason Start Date Expiration Date V isits Requested Visits Authorized [id number] Pending Review 04/09/2023 10/06/2023 1 1 Referral ID Status Reason Start Date Expiration Date V isits Requested Visits Authorized [id number] Pending Review 07/09/2023 01/05/2024 1 1 Specialty Diagnoses / Procedures Referred By Contac t Referred To Contact Diagnoses Cervical dystonia Diana Hernandez, PUBLIC HEALTH ENGINEER - [employer] [address] [place] [address] Referral ID Status Reason Start Date Expiration Date V isits Requested Visits Authorized [id number] Pending Review 12/03/2023 11/27/2024 1 1 Reason Onset Date Comments Error (VOID this visit) 02/16/2024 Referral ID Status Reason Start Date Expiration Date V isits Requested Visits Authorized [id number] Pending Review 03/03/2024 02/26/2025 1 1 Reason Comments Procedure botox Referral ID Status Reason Start Date Expiration Date V isits Requested Visits Authorized [id number] Pending Review 10/02/2022 03/31/2023 1 1 Specialty Diagnoses / Procedures Referred By Contac t Referred To Contact Diagnoses Blepharospasm of both eyes Diana Hernandez APRN - [employer] [address] [place] [address] Phone: tel: fax: Referral ID Status Reason Start Date Expiration Date V isits Requested Visits Authorized [id number] Pending Review 10/13/2024 10/08/2025 1 1 Specialty Diagnoses / Procedures Referred By Contac t Referred To Contact Diagnoses Blepharospasm of both eyes Torticollis Cervical dystonia Diana Hernandez APRN - [facility] [address] [place] [address] Phone: tel: fax: Referral ID Status Reason Start Date Expiration Date V isits Requested Visits Authorized [id number] Pending Review 01/12/2025 01/07/2026 1 1 INFORMATION SOURCE (unrecogn ized section and content) DATE CREATED AUTHOR 01/14/2025 [facility] DATE CREATED AUTHOR AUTHOR'S ORGANIZ ATION 01/23/2025 [facility] FOR RECORDS PERTAINING TO PATIENTS WHO ARE [...] BE BASED ON THE PRIMARY CLINICAL RECORDS. [facility]. provides no warranty or guarantee of the accuracy or completeness of information in this document.
== END | disposition home or self-care (01) ==
LOC: OPBD 14:13
PROVIDERS: PCP Family Medicine; Referring Provider Family Medicine; Visit Provider Family Medicine
DX: M81.0 Age-related osteoporosis without current pathological fracture (principal)
CPT/HCPCS: 77080

== ENCOUNTER 2025-04-10 12:02 | Observation (INO) | payer MEDICARE, OTHER, SELFPAY ==
[2025-04-10] VITALS (10 sets, daily range): BP systolic 138–182; BP diastolic 55–111; PULSE 63–69; RESP 14–18; TEMP 36.2–36.7; O2SAT 95–100; BMI 26.6; BMI 25.9
--- NOTE | 2025-04-10 12:17 | CT_ITS ---
PROCEDURE: STROKE CTA HEAD AND NECK W/CON 04/10/2025 REASON FOR EXAM: NEURO DEFICIT, ACUTE, STROKE SUSPECTED TECHNIQUE: Procedure Code: [id number] Modality: CT Procedure: STROKE CTA HEAD AND NECK W/CON Multiplanar Sagittal and Coronal images were obtained. CONTRAST: Isovue 370 VOLUME: 1 mL One or more dose reduction techniques were used (e.g., Automated exposure control, adjustment of the mA and/or kV according to patient size, use of iterative reconstruction technique). RADIATION DOSE SUMMARY: CTDlvol: 42 mGy DLP: 668 mGycm COMPARISON: Earlier today's head CT. Previous MR January 2021. FINDINGS: CT BRAIN: Cerebrum: Mild loss of cerebral volume. Negative for mass the frontal, parietal, temporal and occipital lobes otherwisenegative. White matter: Mild periventricular white matter changes. Asymmetric to the left. Cerebellum: Negative. Negative for mass. Negative for acute infarction. CSF pathways and ventricles: Negative. Negative for ventricular dilatation or obstruction. 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 No acute infarctions. Brainstem: Midbrain, ramana and medulla otherwisenegative. Calvarium: Negative. Negative for fractures. Orbital structures: Globes negative. Extraocular muscles negative. Paranasal sinuses: No air fluid levels. Remainder of the sinuses negative. Vascular structures: Mild calcifications of the intracranial structures. Other: : Negative for acute intracranial hemorrhage. Negative for acute infarction. Remainder of exam negative. CTA BRAIN: Codominant distal vertebral arteries. Otherwise distal vertebral arteries negative. Basilar artery negative. Posterior cerebral arteries: Right posterior communicating artery hypoplastic. Left posterior communicating artery hypoplastic.. Negative for stenosis of the posterior cerebral arteries. Posterior cerebral arteries and distal branches negative. Distal internal carotid arteries: Mild vascular calcifications of the distal internal carotid arteries. Negative for stenosis. Anterior cerebral arteries: Anterior communicating artery patent. Anterior cerebral arteries and branches negative. Middle cerebral arteries: Negative for stenosis of the middle cerebral arteries. Middle cerebral arteries and branches negative. Negative for intracranial aneurysm or significant stenosis. CTA neck: Neck: Intracranial contents negative. Imaged orbits negative. Oropharynx, hypopharynx and larynx negative. Soft tissue neck negative. No cervical adenopathy. Imaged lungs and mediastinum negative. Aortic arch and branches patent. Right side: Origin of the right common carotid artery negative. Mild vascular calcifications of the common carotid artery and/or internal carotid artery. Negative for hemodynamically significant stenosis of the right common carotid artery. Negative for hemodynamically significant stenosis of the right internal carotid artery. Left side: Origin of the left common carotid artery negative. Moderate vascular calcifications of the common carotid and/or internal carotid artery. Negative for hemodynamically significant stenosis of the right common carotid artery. 60% stenosis of the left internal carotid artery. CT/STROKE CTA Head AND Neck W/Con IMPRESSION: Intracranial small-vessel disease and atrophy as above. Negative CTA of the head. Negative for large vessel occlusion. Vascular disease most prominent in the left proximal internal carotid artery le ading to 60% stenosis Remainder of the CTA neck negative. Findings discussed with referring clinician at the time of the exam. Reading Location: [id number]
--- NOTE | 2025-04-10 12:17 | EKG12_ITS ---
Test Reason : NEURO Blood Pressure : */* mmHG Vent. Rate : 64 BPM Atrial Rate : 64 BPM P-R Int : 180 ms QRS Dur : 88 ms QT Int : 386 ms P-R-T Axes : 17 11 82 degrees QTcB Int : 398 ms Normal sinus rhythm Nonspecific ST and T wave abnormality Abnormal ECG Confirmed by Christopher Tavarez ([id number]), editor city [place] WOO ([id number]) on 04/11/2025 9:49:11 AM Referred By: Confirmed By: Christopher Tavarez
--- NOTE | 2025-04-10 12:17 | CT_ITS ---
PROCEDURE: STROKE BRAIN/HEAD WITHOUT CONT 04/10/2025 REASON FOR EXAM: NEURO DEFICIT, ACUTE, STROKE SUSPECTED TECHNIQUE: Procedure Code: CTBR.ST Modality: CT Procedure: STROKE BRAIN/HEAD WITHOUT CONT Coronal and Sagittal reconstruction series were provided. One or more dose reduction techniques were used (e.g., Automated exposure control, adjustment of the mA and/or kV according to patient size, use of iterative reconstruction technique. RADIATION DOSE SUMMARY: CTDlvol: 45 mGy DLP: 799 mGycm COMPARISON: None. FINDINGS: Cerebrum: Mild loss ofcerebral volume. Negative for mass the frontal, parietal, temporal and occipital lobes otherwisenegative. White matter: [id number] periventricular white matter changes. More prominent on the left. Cerebellum: Negative. Negative for mass. Negative for acute infarction. CSF pathways and ventricles: Negative. Negative for ventricular dilatation or obstruction. Basal ganglia and thalami: Negative. No acute infarctions. Brainstem: Midbrain, ramana and medulla negative. Calvarium: Negative. Negative for fractures. Orbital structures: Globes negative. Extraocular muscles negative. Paranasal sinuses: No air fluid levels. Remainder of the sinuses negative. Vascular structures: Moderate calcifications of the distal intracranial internal carotid arteries. Soft tissues: Negative. Other: : Negative for acute intracranial hemorrhage. Negative for acute infarction. Remainder of exam negative. CT/STROKE Brain/Head without Cont IMPRESSION: Negative for acute intracranial pathology. Findings discussed with referring clinician at the time of the exam. Reading Location: [id number]
--- OUTSIDE RECORDS SUMMARY | 2025-04-10 12:17 | XMS RPT_ITS | CCD ---
Author Organization [facility] Care Team Providers Care Bridge Worker Name Role Phone Dr. Wei Garsia Primary Care Provider [phone] Dr. Wei Garsia Referring Provider Pooja AFFILIATE MARKETING MANAGER, NATALIE Oakes Attending Provider Dr. Wei Garsia Primary Care Provider [phone] Dr. Wei Garsia Referring Provider Dr. Shon Jordan Attending Provider Dr. Wei Garsia Primary Care Provider [phone] Dr. Wei Garsia Referring Provider Pooja AFFILIATE MARKETING MANAGER, NATALIE Oakes Attending Provider Wei Garsia Primary Care Provider Wei Garsia Primary Care Provider Dr. Wei Garsia Primary Care Provider [phone] Dr. Wei Garsia Referring Provider Dr. Christopher Tavarez Attending Provider Wei Garsia Primary Care Provider GARRET SANCHEZ Attending Unavailable WEI GARSIA Primary Care Unavailable GARRET SANCHEZ Attending Unavailable WEI GARSIA Primary Care Unavailable GARRET SANCHEZ Attending Unavailable WEI GARSIA Primary Care Unavailable WEI GARSIA Primary Care Unavailable GARRET SANCHEZ Attending Unavailable Dr. Wei Garsia DO Primary Care Provider Dr. Wei Garsia DO Attending Provider [phone] Dr. Wei Garsia DO Referring Provider [phone] Roof AFFILIATE MARKETING MANAGER-CAftab Attending Provider Wei Garsia Primary Care Unavailable Roof AFFILIATE MARKETING MANAGERAftab Attending Unavailable Wei Garsia Referring Unavailable Wei Garsia Primary Care Unavailable Wei Garsia Attending Unavailable Wei Garsia Referring Unavailable Wei Garsia Primary Care Unavailable Wei Garsia Attending Unavailable Wei Garsia Primary Care Unavailable Wei Garsia Attending Unavailable Wei Garsia Referring Unavailable Max Jacobs Attending Unavailable Wei Garsia Primary Care Unavailable Roof AFFILIATE MARKETING MANAGERAftab Attending Unavailable Roof AFFILIATE MARKETING MANAGERAftab Referring Unavailable Wei Garsia Primary Care Unavailable Allergies Allergy Classification Reported Allergen(s) Allergy Type Date of Onset Reaction(s) Facility (11 sources) Latex Allergy to substance 11-07-2021 [facility] (20 sources) Penicillins; Translations: [Penicillins] Allergy to substance 11-07-2021 Rash [facility] (13 sources) bee venom protein (honey bee) Allergy to substance 11-07-2021 Anaphylaxis [facility] Comment on above: also wasps (1 source) Latex Drug allergy (disorder) 02-14-2025 [facility] Repository (1 source) bee venom protein (honey bee) Drug allergy (disorder) 02-14-2025 [facility] Repository Medications Current Medications Medication Drug Class(es) Dates Sig (Normalized) Sig (Original) acetaminophen 500 mg oral tablet (1 source) Start: 02-14-2025 take 2 tablets by mouth at bedtime as needed Acetaminophen 500 mg tablet Active 1000 mg PO AT BEDTIME as needed February 14, 2025 12:00am apixaban 2.5 mg oral tablet (20 sources) Factor Xa Inhibitor Start: 01-06-2021 take 1 tablet by mouth twice daily Apixaban (Eliquis) 2.5 mg Tablet Active 2.5 mg PO TWICE A DAY 60 0 January 06, 2021 12:00am atorvastatin 10 mg oral tablet (20 sources) HMG-CoA Reductase Inhibitor Start: 01-06-2021 take 1 tablet by mouth at bedtime Atorvastatin 10 mg tablet Active 10 mg PO AT BEDTIME 30 0 January 06, 2021 12:00am cholecalciferol 0.025 mg oral capsule (20 sources) Vitamin D Start: 01-31-2020 take 1 capsule by mouth once daily Cholecalciferol (Vitamin D3) 25 mcg (1,000 unit) capsule Active 4000 U PO DAILY January 31, 2020 3:05pm Start: 01-31-2020 take 4 capsules by m out once daily cholecalciferol (vitamin D3) 1,000 unit [...] 04, 2018 2:43pm Magnesium (20 sources) Start: 02-14-2025 take [address] [facility] once daily Magnesium 250 mg tablet Active 500 mg PO DAILY February 14, 2025 1:59pm sleep Start: 11-11-2023 End: 02-14-2025 take 2 tablets by mouth once daily as needed for sleep Magnesium 250 mg tablet Discontinued 500 mg PO DAILY as needed for sleep November 11, 2023 1:49pm February 14, 2025 2:00pm Start: 11-11-2023 take 2 tablets by mo [facility] once daily as needed for sleep Magnesium [...] 24 hr Discontinued 25 mg PO DAILY 30 12 January 20, 2020 8:02am January 22, 2021 [...] release (DR/EC) Discontinued 81 mg PO DAILY 30 0 January 06, 2021 12:00am November 07, 2021 10:28am Start: 12-06-2013 End: 11-08-2020 take 1 tablet by mouth once daily Aspirin 81 MG tablet,chewable Discontinued 81 mg PO DAILY@0800 December 06, 2013 12:00am November 08, 2020 1:01pm azithromycin 250 mg oral tablet (11 sources) Macrolide Antimicrobial Start: 08-07-2018 End: 08-13-2018 take 1 tablet by mouth once daily Azithromycin 250 MG tablet Discontinued 250 mg PO DAILY 4 0 August 07, 2018 1:00am August 13, 2018 [...] Once. Active clindamycin 150 mg oral capsule (11 sources) Lincosamide Antibacterial Start: 08-25-2020 End: 11-08-2020 take 1 capsule by mouth four times daily Clindamycin Hcl 150 MG capsule Discontinued 150 mg PO 4 TIMES DAILY 20 August 25, 2020 1:00am November 08, 2020 1:01pm dexamethasone 6 mg oral tablet (11 sources) Corticosteroid Start: 05-27-2020 End: 06-03-2020 take 1 tablet by mouth once daily Dexamethasone 6 MG tablet Discontinued 6 mg PO DAILY 7 7 May 27, 2020 12:00am June 02, 2020 12:00June 03, 2020 12:03am digoxin 0.125 mg oral tablet (20 sources) Cardiac Glycoside Start: 12-06-2013 End: 03-05-2019 take 1 tablet by mouth once daily Digoxin 125 mcg tablet Discontinued 125 ug PO DAILY 30 March 04, 2019 10:36am March 05, 2019 5:15pm ergocalciferol 1.25 mg oral capsule (3 sources) Provitamin D2 Compound End: 01-02-2023 take 1 capsule by mouth every week ergocalciferol (Vitamin D-2) 1.25 MG (31029 UT) capsule Take 1.25 mg by mouth 1 (one) time per week. 0 01/02/2023 Discontinued (Therapy completed) 12 hr guaiFENesin 1200 mg extended release oral tablet (11 sources) Start: 05-27-2020 End: 11-08-2020 take 1 tablet by mouth twice daily Guaifenesin 1,200 MG tablet extended release 12hr Discontinued 1200 mg PO TWICE A DAY 14 May 27, 2020 12:00am November 08, 2020 1:01pm levoFLOXacin 750 mg oral tablet (11 sources) Quinolone Antimicrobial Start: 08-13-2018 End: 11-04-2018 Levofloxacin 750 MG tablet Discontinued 750 mg PO Q48@0600 4 0 August 13, 2018 1:00am November 04, 2018 2:43pm lisinopril 10 mg oral tablet (14 sources) Angiotensin Converting Enzyme Inhibitor Start: 01-31-2020 End: 11-08-2020 take 1 tablet by mouth once daily Lisinopril 10 mg tablet Discontinued 10 mg PO DAILY January 31, 2020 12:00am November 08, 2020 1:01pm End: 01-02-2023 lisinopril 5 MG tablet Take by mouth daily. 0 01/02/2023 Discontinued (Therapy completed) mecobalamin 1 mg chewable tablet (11 sources) Start: 01-31-2020 End: 03-28-2024 take 1 tablet by mouth once daily Mecobalamin (Vitamin B12) 1,000 mcg tablet,chewable Discontinued 1000 ug PO DAILY January 31, 2020 12:00am March 28, 2024 11:20am Multivitamin Tablet (3 sources) Start: 01-06-2021 End: 03-28-2024 Multivitamin Tablet Discontinued 1 {tbl} PO DAILY January 06, 2021 12:00am March 28, 2024 11:20am health Start: 01-06-2021 End: 03-28-2024 Multivitamin Tablet Disconti nued 1 {tbl} PO DAILY January 06, 2021 12:00am March 28, 2024 11:20am [place] 2-Zpx-Vif-Fish Oil (8 sources) Start: 08-09-2018 End: 04-28-2019 take 500 mg by mouth once daily [place] 7-Rcb-Cbm-Fish Oil Discontinued 500 MG PO DAILY August 09, 2018 1:40pm April 28, 2019 1:47pm Start: 08-09-2018 End: 04-28-2019 take 500 mg by mouth once daily [place] 8-Ewl-Grr-Fish Oil Discontinued 500 MG PO DAILY August 09, 2018 1:00am April 28, 2019 1:47pm Start: 08-09-2018 End: 04-28-2019 take 500 mg by mouth once daily [place] 6-Rfc-Scu-Fish Oil Discontinued 500 MG PO DAILY August 09, 2018 12:00am April 28, 2019 12:47pm [place] 3-Eju-Klc-Fish Oil 500 MG capsule,delayed release(DR/EC) (3 sources) Start: 08-09-2018 End: 04-28-2019 take 1 capsule by mouth once daily [place] 5-Zpq-Req-Fish Oil 500 MG capsule,delayed release(DR/EC) Discontinued 500 mg PO DAILY August 09, 2018 1:00am April 28, 2019 1:47pm pantoprazole 40 mg delayed release oral tablet (14 sources) Proton Pump Inhibitor Start: 01-31-2020 End: 01-02-2023 take 1 tablet by mouth once daily Pantoprazole 40 mg tablet,delayed release (DR/EC) Discontinued 40 mg PO DAILY January 31, 2020 12:00am November 07, 2021 10:30am predniSONE 20 mg oral tablet (14 sources) Start: 12-23-2019 End: 01-31-2020 take 2 [...] (20 sources) Supraventricular tachycardia; Translations: [Supraventricular tachycardia] Onset: 02-14-2025 Chronic Comment on above: Patient is in [...] metoprolol succinate 50 mg daily. Cardiac dysrhythmias (3 sources) Palpitations; Translations: [Palpitations] 04-05-2024 Episodic Conditions associated with dizziness or vertigo (3 sources) Dizziness; Translations: [Dizziness and giddiness] Onset: 02-14-2025 02-14-2025 Episodic Disorders of lipid metabolism (15 sources) Hyperlipidemia; Translations: [Hyperlipidemia, unspecified] 06-07-2022 Chronic Comment on above: Lipids are managed t o the primary service. Esophageal disorders (11 sources) Gastroesophageal reflux disease; Translations: [Gastro-esophageal reflux disease without esophagitis] 05-25-2020 Chronic Essential hypertension (17 sources) Essential hypertension; Translations: [Essential (primary) hypertension] Chronic Comment on above: Blood pressure is we ll-controlled on her current medical therapy and managed to the primary service. Heart valve disorders (15 sources) Mitral valve prolapse; Translations: [Nonrheumatic mitral (valve) prolapse] Chronic Occlusion or stenosis of precerebral arteries (12 sources) Left carotid artery stenosis; Translations: [Occlusion and stenosis of left carotid artery] 02-20-2021 Chronic Osteoporosis (1 source) Age-related osteoporosis without current pathological fracture; Translations: [Age-related osteoporosis without current pathological fracture] Onset: 01-31-2025 Chronic Other aftercare (1 source) Encounter for therapeutic drug level monitoring; Translations: [Encounter for therapeutic drug level monitoring] Onset: 01-20-2025 Episodic Other hereditary and degenerative nervous system conditions (11 sources) Dystonia; Translations: [Dystonia, unspecified] 05-25-2020 Chronic [...] Onset: 07-07-2024 Chronic Other lower respiratory disease (11 sources) Dyspnea; Translations: [Dyspnea, unspecified] 01-05-2021 Episodic Other lower respiratory disease (3 sources) Solitary nodule of lung; Translations: [Solitary pulmonary nodule] 04-05-2024 Episodic Other upper respiratory disease (11 sources) Anterior epistaxis; Translations: [Epistaxis] 08-26-2020 Episodic Pneumonia (except that caused by tuberculosis or sexually transmitted disease) (11 sources) Pneumonia; Translations: [Pneumonia, unspecified organism] 01-05-2021 Episodic Transient cerebral ischemia (11 sources) Transient cerebral ischemia; Translations: [Transient cerebral ischemic attack, unspecified] 01-05-2021 Chronic Unclassified (2 sources) Procedure; Translations: [Procedure] Onset: 03-03-2024 Urinary tract infections (11 sources) Urinary tract infectious disease; Translations: [Urinary tract infection, site not specified] 01-05-2021 Episodic Varicose veins of lower extremity (11 sources) Varicose veins of lower extremity; Translations: [Asymptomatic varicose veins of unspecified lower extremity] 02-20-2021 Episodic Viral infection (11 sources) Disease caused by 2019-nCoV; Translations: [COVID-19] 01-05-2021 Episodic Past or Other Problems Problem Classification Problem Date Documented Da te Episodic/Chronic Nonspecific chest pain (4 sources) Chest pain; Translations: [Chest pain, unspecified] Onset: 04-20-2024 04-05-2024 Episodic Other lower respiratory disease (1 source) Solitary pulmonary nodule; Translations: [Solitary pulmonary nodule] Onset: 04-27-2024 Episodic Spondylosis; intervertebral disc disorders; other back problems (10 sources) Torticollis; Translations: [Torticollis] Onset: 07-07-2024 07-07-2024 Episodic Results Test Name Value Interpretation Reference Range Facility Cardiology Visit Reporton Cardiology Visit Report [facility] [address] [place] [address] OFFICE VISIT Date of Service: 02/14/25 MR#: [id number] Acct: [id number] Name: JORDY FOSTER Rep #: [id number] : 1935 Provider: NATALIE cain Age/Sex: 89/F Location: [facility] Status: Signed HPI HPI History of Present Illness Details: This is an 89-year-old white female who presents today for outpatient cardiovascular outpatient follow-up with a history of underlying paroxysmal atrial fibrillation/suprav entricular tachycardia, PVCs, mitral valve prolapse, possible diastolic dysfunction, hyperlipidemia. Patient was evaluated at [facility] in January 2021 for questionable TIA. She was started on Eliquis therapy. Patient reports she is doing very well in her home environment she has not had any true syncopal episodes since the TIA back in January 2021. She denies any paroxysmal atrial fibrillation that she is aware of. She denies chest, arm, jaw, or neck discomfort. She denies palpitations. She denies bilateral lower extremity edema. She denies claudication. She states shortness of breath with activity such as going up stairs. This is unchanged over the last year. She denies shortness of breath at rest, orthopnea, or PND. She denies chronic cough. She denies significant, sudden weight gain. She states dizziness in the morning. She denies lightheadedness, near-syncope, or syncope. She denies blood in urine, blood in stool, or epistaxis. He denies fever with chills. She denies myalgia. She states fatigue such as doing housework. Her exercise level has remained stable. Intake Vital Signs 03/28/24 11:10 02/14/25 13:49 Height 5 ft 6 in 5 ft 6 in Weight: 165 lb BMI 26.6 BP 111/69 Blood Pressure Location Lt brachial Position Sitting Respiration 18 Pulse 73 Pulse Source NIBP Intake Visit Reasons: 1 Y FU Cash Room Clerk Required: No Is patient in pain?: No Allergies bee venom protein (honey bee) Allergy (Verified 02/14/25 13:57) Anaphylaxis latex Allergy (Verified 02/14/25 13:57) Rash Penicillins Allergy (Verified 02/14/25 13:57) Rash Medications ???Medication ???Instructions ???Recorded ???Confirmed ???Type melatonin 10 mg capsule 10 mg PO QHS 01/15/17 02/14/25 His tory digoxin 125 mcg (0.125 mg) tablet 125 mcg PO DAILY #90 tabs 9 02/14/25 Rx cholecalciferol (vitamin D3) 25 4,000 unit PO DAILY 01/31/2002/14 History mcg (1,000 unit) capsule apixaban 2.5 mg tablet (Eliquis) 2.5 mg PO BID #60 tabs 01/06/21 Rx atorvastatin 10 mg tablet 10 mg PO QHS #30 tabs 01/06/21 Rx metoprolol succinate 50 mg 50 mg PO DAILY 11/07/21 02/14/25 H istory tablet,extended release 24 hr acetaminophen 500 mg tablet 1,000 mg PO QHS PRN 02/14/2502/14 History magnesium 250 mg tablet 500 mg PO DAILY sleep 02/14/25 History Ejection fraction %: 65 Have you fallen in the past year?: No PFSH Medical History Pneumonia COVID-19 UTI (urinary tract infection) SVT (supraventricular tachycardia) Torticollis Blepharospasm GERD (gastroesophageal reflux disease) Nonrheumatic mitral (valve) prolapse Essential hypertension Ventricular ectopy Paroxysmal atrial fibrillation Surgical History History of knee surgery History of total hysterectomy History of tonsillectomy and adenoidectomy History of lumpectomy of left breast Family History Father CHF (congestive heart failure) Social History Smoking Status: Never smoker alcohol intake: never substance use type: does not use caffeine: Yes eating out: rarely or never ROS Const Const: Positive for fatigue (Stops to rest during housework); Negative for weakness Eyes Eyes: Negative for change in vision ENT ENT: Positive for dizziness (Especially in the morning); Negative for balance problems Cardio Chest Pain: No Palpitations: No Edema: None Muscle aches with walking: None Resp Respiratory: Positive for SOB with activity (Only with stairs); Negative for SOB at rest or SOB orthopnea SOB lying down GI GI: Negative nausea or heartburn : Negative for hematuria or frequent nighttime urination/ nocturia Musc Musc: Negative for balance problems Skin Skin: Negative non-healing lesions or rash Neuro Neuro: Positive for dizziness (Especially in the morning); Negative for lightheadedness, near syncope, syncope or weakness Endo Endo: Positive for fatigue (Stops to rest during housework) Allergy Allergy/Immunology: Negative for rash Cardiology Exam Const Appearance: cooperative, healthy appearing, (more content not included)... Normal [facility] Bone density reportOrdered B y: Sy Freeman on 01-27-2025 Study report Skeletal system DXA [facility] Services [address], [place] [address] Dexa Bone Density Study MR#: [id number] Acct: [id number] Name: JORDY FOSTER Rep #: [id number] : 1935 F 89 From: Chuck Freeman MD PCP: Dr. Wei Garsia, Status: REG CLI Study:Dexa Bone Density Study Date of Exam: 01/26/25 Exam# [id number] Ordering Dr: Wei Garsia DO PROCEDURE: DEXA BONE DENSITY STUDY 01/26/2025 REASON FOR EXAM: F, age 89 y/o . Postmenopausal. TECHNIQUE: DEXA BONE DENSITY STUDY COMPARISON: None FINDINGS: BMD and T-SCORES Lumbar spine: 1.065 g/cm2, T-score 0.4 Levels: L1 through L4 Left femoral neck: 0.699 g/cm2, T-score -1.4 Femoral neck comparison data not recommended for monitoring change. Left total hip: 0.829 g/cm2, T-score -0.9 Right femoral neck: 0.788 g/cm2, T-score -0.5 Femoral neck comparison data not recommended for monitoring change. Right total hip: 0.881 g/cm2, T-score -0.5 The World Health Organization has defined the following categories based on bonedensity: Normal bone density: T-score equal to or greater than -1.0 Osteopenia: T-score between -1.0 and -2.5 Osteoporosis: T-score equal to or less than -2.5 The patient does meet the pharmacological treatment recommendations for prevention of osteoporosis. BD/Dexa Bone Density Study IMPRESSION: OSTEOPENIA. Recommend follow-up as clinically warranted. Reading Location: [facility] CC: Dr. Wei Garsia DO ~ Wearing Apparel Assembler: Signed [facility] Dexa Bone Density Studyon Dexa Bone Density Study [place] [facility] [address] [place], [place] [address] Dexa Bone Density Study MR#: [id number] Acct: [id number] Name: JORDY FOSTER Rep #: [id number] : 1935 F 89 From: Sy gonzalez MD PCP: Dr. Wei Garsia DO Status: REG CLI Study: Dexa Bone Density Study Date of Exam: 01/26/25 Exam# [id number] Ordering Dr: Wei Garsia DO PROCEDURE: DEXA BONE DENSITY STUDY 01/26/2025 REASON FOR EXAM: F, age 89 y/o . Postmenopausal. TECHNIQUE: DEXA BONE DENSITY STUDY COMPARISON: None FINDINGS: BMD and T-SCORES Lumbar spine: 1.065 g/cm2, T-score 0.4 Levels: L1 through L4 Left femoral neck: 0.699 g/cm2, T-score -1.4 Femoral neck comparison data not recommended for monitoring change. Left total hip: 0.829 g/cm2, T-score -0.9 Right femoral neck: 0.788 g/cm2, T-score -0.5 Femoral neck comparison data not recommended for monitoring change. Right total hip: 0.881 g/cm2, T-score -0.5 The World Health Organization has defined the following categories based on bone density: Normal bone density: T-score equal to or greater than -1.0 Osteopenia: T-score between -1.0 and -2.5 Osteoporosis: T-score equal to or less than -2.5 The patient does meet the pharmacological treatment recommendations for prevention of osteoporosis. BD/Dexa Bone Density Study IMPRESSION: OSTEOPENIA. Recommend follow-up as clinically warranted. Reading Location: [facility] CC: Dr. Wei Garsia, Wearing Apparel Assembler: Signed Normal [facility] Comprehensive Metabolic Prof marvel 01-18-2025 Albumin [Mass/Vol] 4.3 g/dL Normal 3.4-4.8 [facility] Comment on above: Performed By: #### L 100.0100, L500.4050, L506.1001, L500.4100, L501.7510, L501.9985 ####[facility] [address] [place], [address] Albumin/Globulin [Mass ratio] 1.7 {ratio} Normal 0.9-2.4 [facility] Comment on above: Performed By: #### L 100.0100, L500.4050, L506.1001, L500.4100, L501.7510, L501.9985 ####[facility] [address] [place], [address] ALK PHOS 114 U/L High 35-104 [facility] Comment on above: Performed By: #### L 100.0100, L500.4050, L506.1001, L500.4100, L501.7510, L501.9985 ####[facility] [address] [place], [address] ALT [Catalytic activity/Vol] 18 U/L Normal <=34 [facility] Comment on above: Performed By: #### L 100.0100, L500.4050, L506.1001, L500.4100, L501.7510, L501.9985 ####[facility] [address] [place], [address] AST [Catalytic activity/Vol] 24 U/L Normal <=31 [facility] Comment on above: Performed By: #### L 100.0100, L500.4050, L506.1001, L500.4100, L501.7510, L501.9985 ####[facility] [address] [place], [address] Bilirubin [Mass/Vol] 0.51 mg/dL Normal 0.00-1.30 [facility] Comment on above: Performed By: #### L 100.0100, L500.4050, L506.1001, L500.4100, L501.7510, L501.9985 ####[facility] [address] [place], [address] BUN/CRE 24.1 RATIO High 10-20 [facility] Comment on above: Performed By: #### L 100.0100, L500.4050, L506.1001, L500.4100, L501.7510, L501.9985 ####[facility] [address] [place], [address] Calcium [Mass/Vol] 9.9 mg/dL Normal 7.6-11.0 [facility] Comment on above: Performed By: #### L 100.0100, L500.4050, L506.1001, L500.4100, L501.7510, L501.9985 ####[facility] [address] [place], [address] Chloride [Moles/Vol] 104 mmol/L Normal 98-108 [facility] Comment on above: Performed By: #### L 100.0100, L500.4050, L506.1001, L500.4100, L501.7510, L501.9985 ####[facility] [address] [place], [address] CO2 [Moles/Vol] 23.8 mmol/L Normal 21.0-32.0 [facility] Comment on above: Performed By: #### L 100.0100, L500.4050, L506.1001, L500.4100, L501.7510, L501.9985 ####[facility] [address] [place], [address] Creatinine [Mass/Vol] 1.13 mg/dL Normal 0.70-1.20 [facility] Comment on above: Performed By: #### L 100.0100, L500.4050, L506.1001, L500.4100, L501.7510, L501.9985 ####[facility] [address] [place], [address] GAP 12 Normal 5-15 [facility] Comment on above: Performed By: #### L 100.0100, L500.4050, L506.1001, L500.4100, L501.7510, L501.9985 ####[facility] [address] [place], [address] GFR/1.73 sq M.predicted among non-blacks MDRD (S/P/Bld) [Vol rate/Area] 47 mL/min/{1.73_m2} Low >60 [facility] Comment on above: Result Comment: mL/m in/1.73m2 CKD-EPI Creatinine Equation (2020) Performed By: #### L 100.0100, L500.4050, L506.1001, L500.4100, L501.7510, L501.9985 ####[facility] [address] [place], [address] Globulin (S) [Mass/Vol] 2.5 g/dL Normal 2.2-4.2 [facility] Comment on above: Performed By: #### L 100.0100, L500.4050, L506.1001, L500.4100, L501.7510, L501.9985 ####[facility] [facility] [address] [place], [address] Glucose [Mass/Vol] 110 mg/dL High 70-99 [facility] Comment on above: Performed By: #### L 100.0100, L500.4050, L506.1001, L500.4100, L501.7510, L501.9985 ####[facility] [address] [place], [address] Potassium [Moles/Vol] 4.2 mmol/L Normal 3.3-5.1 [facility] Comment on above: Performed By: #### L 100.0100, L500.4050, L506.1001, L500.4100, L501.7510, L501.9985 ####[facility] [address] [place], [address] Sodium [Moles/Vol] 141 mmol/L Normal 133-145 [facility] Comment on above: Performed By: #### L 100.0100, L500.4050, L506.1001, L500.4100, L501.7510, L501.9985 ####[facility] [address] [place], [address] T PROT 6.7 g/dL Normal 5.9-8.4 [facility] Comment on above: Performed By: #### L 100.0100, L500.4050, L506.1001, L500.4100, L501.7510, L501.9985 ####[facility] [address] [place], [address] Urea nitrogen [Mass/Vol] 27 mg/dL High 4-19 [facility] Comment on above: Performed By: #### L 100.0100, L500.4050, L506.1001, L500.4100, L501.7510, L501.9985 ####[facility] [address] [place], [address] Lipid Profileon 01-18-2025 CHOL:HDL 2.07 Normal [facility] Comment on above: Performed By: #### L 100.0100, L500.4050, L506.1001, L500.4100, L501.7510, L501.9985 ####[facility] [address] [place], [address] Cholesterol [Mass/Vol] 142 mg/dL Normal <=200 [facility] Comment on above: Result Comment: Chol esterol level, Desirable <200 mg/dL Borderline high cholesterol 200-239 mg/dL High cholesterol >=240 mg/dL Recommendations of the NCEP Adult Treatment Panel for the following risk-cutoff thresholds for the [place] population. Performed By: #### L 100.0100, L500.4050, L506.1001, L500.4100, L501.7510, L501.9985 ####[facility] [address] [place], [address] Cholesterol in HDL [Mass/Vol] 69 mg/dL Normal [facility] Comment on above: Result Comment: Hailee onal Cholesterol Education Program (NCEP) guidelines: <40 mg/dL: Low HDL-cholesterol (major risk factor for CHD) >= 60 mg/dL: High HDL-cholesterol (negative risk factor for CHD) HDL-cholesterol is affected by a number of factors, e.g. smoking, exercise, hormones, sex and age. Performed By: #### L 100.0100, L500.4050, L506.1001, L500.4100, L501.7510, L501.9985 ####[facility] [address] [place], [address] Cholesterol in LDL [Mass/Vol] 57 mg/dL Normal [facility] Comment on above: Result Comment: Bord megsoc=307-691 mg/dL Higher Iggv=672 mg/dL or greater Performed By: #### L 100.0100, L500.4050, L506.1001, L500.4100, L501.7510, L501.9985 ####[facility] [address] [place], [address] Cholesterol in VLDL [Mass/Vol] 17 mg/dL Normal 5-40 [facility] Comment on above: Performed By: #### L 100.0100, L500.4050, L506.1001, L500.4100, L501.7510, L501.9985 ####[facility] [address] [place], [address] Triglyceride [Mass/Vol] 83 mg/dL Normal [facility] Comment on above: Result Comment: The drugs N-Acetylcysteine and Metamizole may falsely depress this assay. Normal range: <150 mg/dL Borderline High: 150-199 mg/dL High: 200-499 mg/dL Very High: >500 mg/dL Performed By: #### L 100.0100, L500.4050, L506.1001, L500.4100, L501.7510, L501.9985 ####[facility] [address] [place], [address] Vitamin D,25 Hydroxyon 01-18 Vitamin D 25-OH 62.1 ng/mL Normal 30-100 [facility] Comment on above: Result Comment: Pamela min D Status Deficiency: <20 ng/mL (50nmol/L) Insufficiency: 20-30 ng/mL (50-75 nmol/L) Sufficiency: 30-100 ng/mL (75-250 nmol/L) Toxicity: >100 ng/mL (>250 nmol/L) Performed By: #### L 100.0100, L500.4050, L506.1001, L500.4100, L501.7510, L501.9985 #### [facility] Laboratory [address] [place], [address] Absolute lymphocyte countOrd ered By: Wei Garsia on 01-17-2025 Lymphocytes Auto (Unsp spec) [#/Vol] 1.85 10*3/uL 0.83-4.51 [facility] Absolute neutrophil countOrd ered By: Wei Garsia on 01-17-2025 Neutrophils (Bld) [#/Vol] 4.1 10*3/uL 2.0-7.7 [facility] Anion gap in Serum or Plasma Ordered By: Wei Sun on 01-17-2025 Anion gap [Moles/Vol] 12 mmol/L 5-15 [facility] Automated lymphocyte count a s percentage of total leukocytesOrdered By: Wei JoyaSun on 01-17-2025 Lymphocytes/100 WBC Auto (Unsp spec) 27.2 % 19-41 [facility] BUN/creatinine ratioOrdered By: Wei Garsia on 01-17-2025 Urea nitrogen/Creatinine [Mass ratio] 24.1 mg/mg High 10-20 [facility] Basophil percentageOrdered B y: Wei Garsia on 01-17-2025 Basophils/100 WBC (Bld) 0.9 % 0-1 [facility] Bilirubin, totalOrdered By: Wei Garsia on 01-17-2025 Bilirubin [Mass/Vol] 0.51 mg/dL 0.00-1.30 [facility] CBC W/Diff, Automatedon 01-02 Absolute Lymph 1.85 X10 3/uL Normal 0.83-4.51 [facility] Comment on above: Performed By: #### L 100.0100, L500.4050, L506.1001, L500.4100, L501.7510, L501.9985 #### [facility] Laboratory [address] [facility] [place], [address] Absolute Neut 4.1 X10 3/uL Normal 2.0-7.7 [facility] Comment on above: Performed By: #### L 100.0100, L500.4050, L506.1001, L500.4100, L501.7510, L501.9985 #### [facility] Laboratory [address] [place], [address] Basophils/100 WBC (Bld) 0.9 % Normal 0-1 [facility] Comment on above: Performed By: #### L 100.0100, L500.4050, L506.1001, L500.4100, L501.7510, L501.9985 #### [facility] Laboratory [address] [place], [address] Eosinophils/100 WBC (Bld) 2.8 % Normal 0-5 [facility] Comment on above: Performed By: #### L 100.0100, L500.4050, L506.1001, L500.4100, L501.7510, L501.9985 #### [facility] Laboratory [address] [place], [address] Erythrocyte distribution width (RBC) [Ratio] 14.2 % Normal 11.6-14.6 [facility] Comment on above: Performed By: #### L 100.0100, L500.4050, L506.1001, L500.4100, L501.7510, L501.9985 #### [facility] Laboratory [address] [place], [address] Hematocrit (Bld) [Volume fraction] 40.1 % Normal 37-47 [facility] Comment on above: Performed By: #### L 100.0100, L500.4050, L506.1001, L500.4100, L501.7510, L501.9985 #### [facility] [address] [place], [address] Hemoglobin (Bld) [Mass/Vol] 12.8 g/dL Normal 12.0-15.0 [facility] Comment on above: Performed By: #### L 100.0100, L500.4050, L506.1001, L500.4100, L501.7510, L501.9985 #### [facility] [address] [place], [address] IG% 0.400 Normal 0.0-0.9 [facility] Comment on above: Result Comment: IG% - Immature Granulocytes (promyelocytes, myelocytes and metamyelocytes) > 1% indicates that a LEFT SHIFT is Present. Performed By: #### L 100.0100, L500.4050, L506.1001, L500.4100, L501.7510, L501.9985 #### [facility] [address] [place], [address] Lymphocytes/100 WBC (Bld) 27.2 % Normal 19-41 [facility] Comment on above: Performed By: #### L 100.0100, L500.4050, L506.1001, L500.4100, L501.7510, L501.9985 #### [facility] [address] [place], [address] MCH (RBC) [Entitic mass] 28.8 pg Normal 27.0-32.0 [facility] Comment on above: Performed By: #### L 100.0100, L500.4050, L506.1001, L500.4100, L501.7510, L501.9985 #### [facility] [address] [place], [address] MCHC (RBC) [Mass/Vol] 31.9 g/dL Low 32-36 [facility] Comment on above: Performed By: #### L 100.0100, L500.4050, L506.1001, L500.4100, L501.7510, L501.9985 #### [facility] [address] [place], [address] MCV (RBC) [Entitic vol] 90.3 fL Normal 81-99 [facility] Comment on above: Performed By: #### L 100.0100, L500.4050, L506.1001, L500.4100, L501.7510, L501.9985 #### [facility] [address] [place], [address] Monocytes/100 WBC (Bld) 9.0 % Normal 0-10 [facility] Comment on above: Performed By: #### L 100.0100, L500.4050, L506.1001, L500.4100, L501.7510, L501.9985 #### [facility] [address] [place], [address] Neutrophils/100 WBC (Bld) 59.7 % Normal 47-70 [facility] Comment on above: Performed By: #### L 100.0100, L500.4050, L506.1001, L500.4100, L501.7510, L501.9985 #### [facility] [address] [place], [address] Nucleated RBC (Bld) [#/Vol] 0 10*3/uL Normal 0-5 [facility] Comment on above: Performed By: #### L 100.0100, L500.4050, L506.1001, L500.4100, L501.7510, L501.9985 #### [facility] [address] [place], [address] Platelet mean volume (Bld) [Entitic vol] 10.1 fL Normal 6.2-12.0 [facility] Comment on above: Performed By: #### L 100.0100, L500.4050, L506.1001, L500.4100, L501.7510, L501.9985 #### [facility] [address] [place], [address] Platelets (Bld) [#/Vol] 261 10*3/uL Normal 150-450 [facility] Comment on above: Performed By: #### L 100.0100, L500.4050, L506.1001, L500.4100, L501.7510, L501.9985 #### [facility] [address] [place], [address] RBC (Bld) [#/Vol] 4.44 10*6/uL Normal 4.2-5.4 [facility] Comment on above: Performed By: #### L 100.0100, L500.4050, L506.1001, L500.4100, L501.7510, L501.9985 #### [facility] [address] [place], [address] RDW SD 46.7 fl High 35.1-43.9 [facility] Comment on above: Performed By: #### L 100.0100, L500.4050, L506.1001, L500.4100, L501.7510, L501.9985 #### [facility] [address] [place], [address] WBC (Bld) [#/Vol] 6.8 10*3/uL Normal 4.4-11.0 [facility] Comment on above: Performed By: #### L 100.0100, L500.4050, L506.1001, L500.4100, L501.7510, L501.9985 #### [facility] [address] [place], [address] Calculated very low density lipoprotein (VLDL) cholesterol measurementOrdered By: Wei Garsia on 01-17-2025 Calculated very low density lipoprotein (VLDL) cholesterol measurement 17 mg/dL 5-40 [facility] Carbon dioxide, total [Moles /volume] in Central venous bloodOrdered By: Wei Garsia on 01-17-2025 CO2 [Moles/Vol] 23.8 mmol/L 21.0-32.0 [facility] Chloride assayOrdered By: Stefan Garsia on 01-17-2025 Chloride [Moles/Vol] 104 mmol/L 98-108 [facility] Digoxin Levelon 01-17-2025 DIG 0.86 ng/mL Normal 0.00-2.00 [facility] Comment on above: Performed By: #### L 100.0100, L500.4050, L506.1001, L500.4100, L501.7510, L501.9985 #### [facility] [address] [place], [address] Eosinophil percentageOrdered By: Wei Sun on 01-17-2025 Eosinophils/100 WBC (Bld) 2.8 % 0-5 [facility] Erythrocyte distribution wid th ratioOrdered By: Wei JoyaSun on 01-17-2025 Erythrocyte distribution width (RBC) [Ratio] 14.2 % 11.6-14.6 [facility] Erythrocyte distribution wid th standard deviationOrdered By: Wei JoyaSun on 01-17-2025 Erythrocyte distribution width (RBC) [Ratio] 46.7 fl High 35.1-43.9 [facility] Glomerular filtration rate ( GFR) estimation/1.73 sq m using serum, plasma, or whole bOrdered By: Wei Garsia on 01-17-2025 GFR/1.73 sq M.predicted among non-blacks MDRD (S/P/Bld) [Vol rate/Area] 47 mL/min/{1.73_m2} Low >60 [facility] Comment on above: mL/min/1.73m2 CKD-EP I Creatinine Equation (2020) Hematocrit Auto (Bld) [Volum e fraction]Ordered By: Wei Garsia on 01-17-2025 Hematocrit (Bld) [Volume fraction] 40.1 % 37-47 [facility] Hemoglobin A1con 01-17-2025 HbA1c (Bld) [Mass fraction] 6.4 % High <=5.6 [facility] Comment on above: Result Comment: Norm al < 5.7 % Prediabetic 5.7 - 6.4 % Diabetic >or= 6.5 % Please note range changes. Performed By: #### L 100.0100, L500.4050, L506.1001, L500.4100, L501.7510, L501.9985 #### [facility] Laboratory [address] [place], [address] Hemoglobin A1c percentageOrd ered By: Wei Garsia on 01-17-2025 HbA1c (Bld) [Mass fraction] 6.4 % High <5.7 [facility] Comment on above: Normal < 5.7 % Predi abetic 5.7 - 6.4 % Diabetic >or= 6.5 % Please note range changes. Hemoglobin measurementOrdere d By: Wei Garsia on 01-17-2025 Hemoglobin (Bld) [Mass/Vol] 12.8 g/dL 12.0-15.0 [facility] Immature granulocytes/100 WB C Auto (Bld)Ordered By: Wei Garsia on 01-17-2025 Immature granulocytes/100 WBC (Bld) 0.400 % 0.0-0.9 [facility] Comment on above: IG% - Immature Granu locytes (promyelocytes, myelocytes and metamyelocytes) > 1% indicates that a LEFT SHIFT is Present. LDL calc ser/plasOrdered By: Wei Garsia on 01-17-2025 Cholesterol in LDL [Mass/Vol] 57 mg/dL [facility] Comment on above: Lyirpasbsd=485-293 m g/dL & Higher Ftdh=936 mg/dL or greater Laboratory - Chemistry and C hemistry - challengeOrdered By: Wei Garsia on 01-17-2025 AST [Catalytic activity/Vol] 24 U/L <32 [facility] MCV (mean corpuscular volume ) determinationOrdered By: Wei Garsia on 01-17-2025 MCV (RBC) [Entitic vol] 90.3 fL 81-99 [facility] Mean corpuscular hemoglobin (MCH) determinationOrdered By: Wei Garsia on 01-17-2025 MCH (RBC) [Entitic mass] 28.8 pg 27.0-32.0 [facility] Mean corpuscular hemoglobin concentration (MCHC) determinationOrdered By: Wei Garsia on 01-17-2025 MCHC (RBC) [Mass/Vol] 31.9 g/dL Low 32-36 [facility] Mean platelet volume determi nationOrdered By: Wei Garsia on 01-17-2025 Platelet mean volume (Bld) [Entitic vol] 10.1 fL 6.2-12.0 [facility] Monocyte percentageOrdered B y: Wei Garsia on 01-17-2025 Monocytes/100 WBC (Bld) 9.0 % 0-10 [facility] Neutrophil percentageOrdered By: Wei Garsia on 01-17-2025 Neutrophils/100 WBC (Bld) 59.7 % 47-70 [facility] Nucleated red blood cell per centageOrdered By: Wei Garsia on 01-17-2025 Nucleated RBC/100 WBC (Bld) [Ratio] 0 % 0-5 [facility] Platelet countOrdered By: Stefan Garsia on 01-17-2025 Platelets (Bld) [#/Vol] 261 10*3/uL 150-450 [facility] Potassium measurement (mass/ volume)Ordered By: Wei Garsia on 01-17-2025 Potassium (Unsp spec) [Mass/Vol] 4.2 mmol/L 3.3-5.1 [facility] RBC Auto (Bld) [#/Vol]Ordere d By: Wei Garsia on 01-17-2025 RBC (Bld) [#/Vol] 4.44 10*6/uL 4.2-5.4 [facility] Screening total cholesterol/ high density lipoprotein (HDL) cholesterol ratioOrdered By: Wei Garsia on 01-17-2025 Cholesterol.total/Cholest pablo in HDL [Mass ratio] 2.07 {ratio} [facility] Serum creatinine measurement (mass/volume)Ordered By: Wei Garsia on 01-17-2025 Creatinine [Mass/Vol] 1.13 mg/dL 0.70-1.20 [facility] Serum globulin measurementOr dered By: Wei Garsia on 01-17-2025 Globulin (S) [Mass/Vol] 2.5 g/dL 2.2-4.2 [facility] Serum glucose measurement (m ass/volume)Ordered By: Wei Garsia on 01-17-2025 Glucose [Mass/Vol] 110 mg/dL High 70-99 [facility] Serum or plasma alanine shah otransferase (ALT) measurementOrdered By: Wei Garsia on 01-17-2025 ALT [Catalytic activity/Vol] 18 U/L <35 [facility] Serum or plasma albumin bola urement (mass/volume)Ordered By: Wei Garsia on 01-17-2025 Albumin [Mass/Vol] 4.3 g/dL 3.4-4.8 [facility] Serum or plasma albumin/glob ulin mass ratioOrdered By: Wei Garsia on 01-17-2025 Albumin/Globulin [Mass ratio] 1.7 {ratio} 0.9-2.4 [facility] Serum or plasma alkaline jana sphatase measurementOrdered By: Wei Garsia on 01-17-2025 ALP [Catalytic activity/Vol] 114 U/L High 35-104 [facility] Serum or plasma calcium bola urement (mass/volume)Ordered By: Wei Garsia on 01-17-2025 Calcium [Mass/Vol] 9.9 mg/dL 7.6-11.0 [facility] Serum or plasma cholesterol in HDL measurement (mass/volume)Ordered By: Wei Garsia on 01-17-2025 Cholesterol in HDL [Mass/Vol] 69 mg/dL >40 [facility] Comment on above: National Cholesterol Education Program (NCEP) guidelines:<40 mg/dL: Low HDL-cholesterol (major risk factor for CHD)>= 60 mg/dL: High HDL-cholesterol (negative risk factor for CHD)HDL-cholesterol is affected by a number of factors, e.g. smoking, exercise, hormones, sex and age. Serum or plasma cholesterol measurement (mass/volume)Ordered By: Wei Garsia on 01-17-2025 Cholesterol [Mass/Vol] 142 mg/dL <201 [facility] Comment on above: Cholesterol level, D esirable <200 mg/dLBorderline high cholesterol 200-239 mg/dLHigh cholesterol >=240 mg/dLRecommendations of the NCEP Adult Treatment Panel for the following risk-cutoff thresholds for the [place] population. Serum or plasma digoxin bola urement (mass/volume)Ordered By: Wei Garsia on 01-17-2025 Digoxin [Mass/Vol] 0.86 ng/mL 0.00-2.00 [facility] Serum or plasma urea nitroge n measurement (mass/volume)Ordered By: Wei Garsia on 01-17-2025 Urea nitrogen [Mass/Vol] 27 mg/dL High 4-19 [facility] Sodium levelOrdered By: Wei Garsia on 01-17-2025 Sodium [Moles/Vol] 141 mmol/L 133-145 [facility] Total proteinOrdered By: Barbara Garsia on 01-17-2025 Protein [Mass/Vol] 6.7 g/dL 5.9-8.4 [facility] Triglycerides measurementOrd ered By: Wei Garsia on 01-17-2025 Triglyceride [Mass/Vol] 83 mg/dL <199 [facility] Comment on above: The drugs N-Acetylcy steine and Metamizole may falsely depress this assay. Normal range: <150 mg/dLBorderline High: 150-199 mg/dLHigh: 200-499 mg/dLVery High: >500 mg/dL White blood cell (WBC) count Ordered By: Wei Garsia on 01-17-2025 WBC (Bld) [#/Vol] 6.8 10*3/uL 4.4-11.0 [facility] 36on 01-12-2025 36 Pt was seen today. No further action needed. Closing encounter. [facility] 36 Attempted to call patient to add to later in the day, pt phone is no longer in service. [facility] Progress Noteon 01-12-2025 Progress Note Administrations This Visit onabotulinumtoxin A (BOTOX) injection 300 Units Admin Date 01/12/25 Action Given Dose 300 Units Route IntraMUSCular Site Other Administered By Garret Sanchez MD Ordering Provider: Garret Sanchez MD ND: [id number] (1) and [id number] (1) Lot#: [id number] (1), [id number] (1) Script Worker: Allergan Patient Supplied?: No [facility] 36on 01-10-2025 36 Name of Caller: Jordy Contact Reason for Appointment: Jordy called in asking to reschedule her Botox appointment scheduled 01/12/25 to later that day if possible. Advised she had a in the family and services are the morning of 01/12/25. Please call patient back to reschedule. Office Name: [facility] Progress Noteon 10-13-2024 Progress Note Administrations This Visit onabotulinumtoxin A (BOTOX) injection 200 Units Admin Date 10/13/24 Action Given Dose [address] IntraMUSCular Site Other Administered By Garret Sanchez MD Ordering Provider: Garret Sanchez MD NDC: [id number] (x 3) Lot#: [id number] (x 3) Script Worker: Allergan Patient Supplied?: No Normal [facility] Progress Noteon 07-07-2024 Progress Note Administrations This Visit onabotulinumtoxin A (BOTOX) injection 200 Units Admin Date 07/07/2024 Action Given Dose 300 Units [address] IntraMUSCular Site Other [place]ered [place] [facility] [place] Provider: Garret Sanchez MD [facility]:[id number] x3 Lot#: [id number] x3 Script Worker: allergan Patient Supplied?: no, buy and bill Normal [facility] Chest WITH Contraston 2023 Chest WITH Contrast [facility] Imaging Services [address] [place], [place] [id number] Chest WITH Contrast MR#: [id number] Acct: [id number] Name: JORDY FOSTER Rep #: [id number] : 1935 F 88 From: Reji Vital MD PCP: Dr. Wei Garsia DO Status: REG CLI Study: Chest WITH Contrast Date of Exam: 04/06/24 Exam# [id number] Ordering Dr: Wei Garsia DO -[id number] INDICATION: Solitary pulmonary nodule EXAMINATION: CT [...] EDT , CC: Dr. 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 Max Jacobs MD; Dr. Wei Garsia DO; ANDREA Frank Signed [facility] [facility] Basic Metabolic Profile (BMP )on 03-28-2024 BUN/CRE 20.9 RATIO High 10-20 [facility] Comment on above: Order Comment: 1Y Performed By: #### L 500.2500, L100.0100, L501.5425 ####[facility] [address] [place], [address] CA,Total 8.7 mg/dL Normal 8.5-10.1 [facility] Comment on above: Order Comment: 1Y Performed By: #### L 500.2500, L100.0100, L501.5425 ####[facility] [address] [place], [address] Chloride [Moles/Vol] 104 mmol/L Normal 98-107 [facility] Comment on above: Order Comment: 1Y Performed By: #### L 500.2500, L100.0100, L501.5425 ####[facility] [address] [place], [address] CO2 [Moles/Vol] 25.0 mmol/L Normal 21.0-32.0 [facility] Comment on above: Order Comment: 1Y Performed By: #### L 500.2500, L100.0100, L501.5425 ####[facility] [address] [place], [address] Creatinine [Mass/Vol] 1.10 mg/dL High 0.55-1.02 [facility] Comment on above: Order Comment: 1Y Result Comment: The validity of the calculated GFR GFRAA in patients over 70 years has not been determined. Clinical correlation is essential. Performed By: #### L 500.2500, L100.0100, L501.5425 ####[facility] [address] [place], [address] ECRCL 39.19 ml/min Normal [facility] Comment on above: Order Comment: 1Y Performed By: #### L 500.2500, L100.0100, L501.5425 ####[facility] [address] [place], [address] EST GFR - AA 61 mL/min Normal >60 [facility] Comment on above: Order Comment: 1Y Result Comment: Afri can Swedish GFR Calc Performed By: #### L 500.2500, L100.0100, L501.5425 ####[facility] [address] [place], [address] GAP 7 Normal 5-15 [facility] Comment on above: Order Comment: 1Y Performed By: #### L 500.2500, L100.0100, L501.5425 ####[facility] [address] [place], [address] GFR/1.73 sq M.predicted among non-blacks MDRD (S/P/Bld) [Vol rate/Area] 50 mL/min/{1.73_m2} Low >60 [facility] Comment on above: Order Comment: 1Y Result Comment: Non- GFR Calc Performed By: #### L 500.2500, L100.0100, L501.5425 ####[facility] [address] [place], [address] Glucose [Mass/Vol] 132 mg/dL High 74-106 [facility] Comment on above: Order Comment: 1Y Result Comment: Fast ing Glucose result greater than or equal to 126 mg/dL suggests DIABETES MELLITUS per A.D.A. criteria. Performed By: #### L 500.2500, L100.0100, L501.5425 ####[facility] [address] [place], [address] Potassium [Moles/Vol] 4.1 mmol/L Normal 3.5-5.1 [facility] Comment on above: Order Comment: 1Y Performed By: #### L 500.2500, L100.0100, L501.5425 ####[facility] [address] [place], [address] Sodium [Moles/Vol] 136 mmol/L Normal 136-145 [facility] Comment on above: Order Comment: 1Y Performed By: #### L 500.2500, L100.0100, L501.5425 ####[facility] [address] [place], [address] Urea nitrogen [Mass/Vol] 23 mg/dL High 7-18 [facility] Comment on above: Order Comment: 1Y Performed By: #### L 500.2500, L100.0100, L501.5425 ####[facility] [address] [place], [address] CBC W/Diff, Automatedon 2 -2023 Absolute Lymph 2.02 X10 3/uL Normal 0.83-4.51 [facility] Comment on above: Performed By: #### L 500.2500, L100.0100, L501.5425 ####[facility] [address] [place], [address] Absolute Neut 6.5 X10 3/uL Normal 2.0-7.7 [facility] Comment on above: Performed By: #### L 500.2500, L100.0100, L501.5425 ####[facility] [address] [place], [address] Basophils/100 WBC (Bld) 0.5 % Normal 0-1 [facility] Comment on above: Performed By: #### L 500.2500, L100.0100, L501.5425 ####[facility] [address] [place], [address] Eosinophils/100 WBC (Bld) 2.3 % Normal 0-5 [facility] Comment on above: Performed By: #### L 500.2500, L100.0100, L501.5425 ####[facility] [address] [place], [address] Erythrocyte distribution width (RBC) [Ratio] 14.6 % Normal 11.6-14.6 [facility] Comment on above: Performed By: #### L 500.2500, L100.0100, L501.5425 ####[facility] [address] [place], [address] Hematocrit (Bld) [Volume fraction] 43.1 % Normal 37-47 [facility] Comment on above: Performed By: #### L 500.2500, L100.0100, L501.5425 ####[facility] [address] [place], [address] Hemoglobin (Bld) [Mass/Vol] 13.5 g/dL Normal 12.0-15.0 [facility] Comment on above: Performed By: #### L 500.2500, L100.0100, L501.5425 ####[facility] [address] [place], [address] IG% 0.400 Normal 0.0-0.9 [facility] Comment on above: Result Comment: IG% - Immature Granulocytes (promyelocytes, myelocytes and metamyelocytes) > 1% indicates that a LEFT SHIFT is Present. Performed By: #### L 500.2500, L100.0100, L501.5425 ####[facility] [address] [place], [address] Lymphocytes/100 WBC (Bld) 20.6 % Normal 19-41 [facility] Comment on above: Performed By: #### L 500.2500, L100.0100, L501.5425 ####[facility] [address] [place], [address] MCH (RBC) [Entitic mass] 26.7 pg Low 27.0-32.0 [facility] Comment on above: Performed By: #### L 500.2500, L100.0100, L501.5425 ####[facility] [address] [place], [address] MCHC (RBC) [Mass/Vol] 31.3 g/dL Low 32-36 [facility] Comment on above: Performed By: #### L 500.2500, L100.0100, L501.5425 ####[facility] [address] [place], [address] MCV (RBC) [Entitic vol] 85.2 fL Normal 81-99 [facility] Comment on above: Performed By: #### L 500.2500, L100.0100, L501.5425 ####[facility] [address] [place], [address] Monocytes/100 WBC (Bld) 9.8 % Normal 0-10 [facility] Comment on above: Performed By: #### L 500.2500, L100.0100, L501.5425 ####[facility] [address] [place], [address] Neutrophils/100 WBC (Bld) 66.4 % Normal 47-70 [facility] Comment on above: Performed By: #### L 500.2500, L100.0100, L501.5425 ####[facility] [address] [place], [address] Nucleated RBC (Bld) [#/Vol] 0 10*3/uL Normal 0-5 [facility] Comment on above: Performed By: #### L 500.2500, L100.0100, L501.5425 ####[facility] [address] [place], [address] Platelet mean volume (Bld) [Entitic vol] 11.4 fL Normal 6.2-12.0 [facility] Comment on above: Performed By: #### L 500.2500, L100.0100, L501.5425 ####[facility] [address] [place], [address] Platelets (Bld) [#/Vol] 178 10*3/uL Normal 150-450 [facility] Comment on above: Performed By: #### L 500.2500, L100.0100, L501.5425 ####[facility] [address] [place], [address] RBC (Bld) [#/Vol] 5.06 10*6/uL Normal 4.2-5.4 [facility] Comment on above: Performed By: #### L 500.2500, L100.0100, L501.5425 ####[facility] [address] [place], [address] RDW SD 44.9 fl High 35.1-43.9 [facility] Comment on above: Performed By: #### L 500.2500, L100.0100, L501.5425 ####[facility] [address] [place], [address] WBC (Bld) [#/Vol] 9.8 10*3/uL Normal 4.4-11.0 [facility] Comment on above: Performed By: #### L 500.2500, L100.0100, L501.5425 ####[facility] [address] [place], [address] Chest PA and Lateralon 03-28 Chest PA and Lateral [facility] Imaging Services [address] [place] [place] [address] Chest PA and Lateral MR#: [id number] Acct: [id number] Name: JORDY FOSTER Rep #: [id number] : 1935 F 88 From: Eloise rojo MD PCP: Dr. Wei Garsia, DO Status: [facility] ER Study: Chest PA and Lateral Date of Exam: 03/28/24 Exam# [id number] Ordering Dr: Kimberli Bedoya -[id number] HISTORY: chest pain. TECHNIQUE: XR Chest [...] Signed: Eloise Tubbs MD at 12:10 EDT , CC: Dr. Wei Garsia DO; ANDREA [employer] Assembler: Signed Normal [facility] Emergency Department Summary on 03-28-2024 Emergency Department Summary [facility] Medical Records Department [address] [place] [address] Emergency Department Summary 03/28/24 MR#: [id number] Acct: [id number] Name: JORDY FOSTER Rep #: [id number] : 1935 88 From: Max Jacobs MD [...] Recent Immobilization or Prior DVT or PE [facility] Medical History Pneumonia COVID-19 UTI (urinary tract [...] wounds Physical (more content not included)... Normal [facility] L501.5425on 03-28-2024 TROPONIN-I HS 19 pg/mL Normal 3.0-54.0 [facility] Comment on above: Order Comment: 1Y Result Comment: Plea se Note: New Test Units and Gender Specific Reference Ranges. For more information see Policy Stat Procedure Cross High Sensitivity Troponin (TNIH) and attachments. Performed By: #### L 500.2500, L100.0100, L501.5425 ####[facility] [address] [place], [address] Progress Noteon 03-03-2024 Progress Note Administrations This Visit onabotulinumtoxin A (BOTOX) injection 200 Units Admin Date 03/03/2024 Action Given Dose 250 Units Route IntraMUSCular Site Other [place]ered [place] [facility] [place] Provider: Garret Sanchez MD [facility]:[id number] x3 Lot#: [id number] [id number] Script Worker: Allergan Patient Supplied?: No, buy and bill [facility] 36on 02-16-2024 36 Pt notified there are no available appts for 02/25/2024. She is on the wait list if anything opens up. [facility] 36 S: Patient spoke with [facility] nurse regarding moving up botox injection appt on 03-03-24. B: Onset of symptoms/concern end of January. A: Pt states she gets botox injections [...] office to review and call pt at [phone]. Pt states she is in pain and [...] your last menstrual period? N/A Protocols used: [id number] Normal [facility] 36 error Normal [facility] Laboratory - Miscellaneous t estsOrdered By: Wei Garsia on 11-12-2023 Service comment (Unsp spec) [Interp] Comment . [facility] Comment on above: Levels of Specific I [...] 11-12-2023 Scallop Allergen <0.10 kU/L Class 0 [facility] Sesame Seed Allergen IgE Antibody <0.10 kU/L Class 0 [facility] Comment on above: Performed at: [address] [id number] Director: Rodo Henderson MD, Phone: [phone] Shrimp Allergen <0.10 kU/L Class 0 [facility] Serum black walnut IgE antib radha assay (units/volume)Ordered By: Wei Garsia on 11-12-2023 Black Lewis IgE Qn (S) <0.10 kU/L Class 0 [facility] Serum clam IgE antibody assa y (units/volume)Ordered By: Wei Garsia on 11-12-2023 Clam IgE Qn (S) <0.10 kU/L Class 0 [facility] Serum codfish IgE antibody a ssay (units/volume)Ordered By: Wei Garsia on 11-12-2023 Codfish IgE Qn (S) <0.10 kU/L Class 0 [facility] Serum corn IgE antibody assa y (units/volume)Ordered By: Wei Garsia on 11-12-2023 Dresden IgE Qn (S) <0.10 kU/L Class 0 [facility] Serum cow milk IgE antibody assay (units/volume)Ordered By: Wei Garsia on 11-12-2023 Cow milk IgE Qn (S) <0.10 kU/L Class 0 [facility] Serum egg white IgE antibody assay (units/volume)Ordered By: Wei Garsia on 11-12-2023 Egg white IgE Qn (S) <0.10 kU/L Class 0 [facility] Serum peanut IgE antibody as say (units/volume)Ordered By: Wei Garsia on 11-12-2023 Peanut IgE Qn (S) <0.10 kU/L Class 0 [facility] Serum soybean IgE antibody a ssay (units/volume)Ordered By: Wei Garsia on 11-12-2023 Soybean IgE Qn (S) <0.10 kU/L Class 0 [facility] Serum wheat IgE antibody ass ay (units/volume)Ordered By: Wei Garsia on 11-12-2023 Wheat IgE Qn (S) <0.10 kU/L Class 0 [facility] No Panel InformationOrdered By: Christopher Tavarez on 11-11-2023 Digoxin Level 0.62 ng/mL 0.80-2.00 [facility] Absolute lymphocyte countOrd ered By: Wei Garsia on 10-28-2023 Lymphocytes Auto (Unsp spec) [#/Vol] 2.66 10*3/uL 0.83-4.51 [facility] Automated lymphocyte count a s percentage of total leukocytesOrdered By: Wei Garsia on 10-28-2023 Lymphocytes/100 WBC Auto (Unsp spec) 30.8 % 19-41 [facility] Basophil percentageOrdered B y: Wei Garsia on 10-28-2023 Basophils/100 WBC (Bld) 0.9 % 0-1 [facility] Bilirubin [Mass/Vol] 0.50 mg/dL 0.20-1.00 [facility] Comment on above: For patients on eltr ombopag therapy, use of Dimension Cross TBIL is not recommended. Chloride [Moles/Vol] 108 mmol/L 98-107 [facility] Eosinophils/100 WBC (Bld) 4.2 % 0-5 [facility] Glucose [Mass/Vol] 97 mg/dL 74-106 [facility] Hemoglobin (Bld) [Mass/Vol] 12.8 g/dL 12.0-15.0 [facility] Monocytes/100 WBC (Bld) 8.9 % 0-10 [facility] Neutrophils (Bld) [#/Vol] 4.7 10*3/uL 2.0-7.7 [facility] Neutrophils/100 WBC (Bld) 55.0 % 47-70 [facility] Potassium [Moles/Vol] 4.5 mmol/L 3.5-5.1 [facility] Protein [Mass/Vol] 6.9 g/dL 6.4-8.2 [facility] Sodium [Moles/Vol] 141 mmol/L 136-145 [facility] WBC (Bld) [#/Vol] 8.6 10*3/uL 4.4-11.0 [facility] Determination of erythrocyte mean corpuscular volume (MCV)Ordered By: Wei Garsia on 10-28-2023 MCV (RBC) [Entitic vol] 87.1 fL 81-99 [facility] Erythrocyte distribution wid th ratioOrdered By: Wei Garsia on 10-28-2023 Erythrocyte distribution width (RBC) [Ratio] 14.4 % 11.6-14.6 [facility] Erythrocyte distribution wid th standard deviationOrdered By: Wei Garsia on 10-28-2023 Erythrocyte distribution width (RBC) [Entitic vol] 46.0 fL 35.1-43.9 [facility] Erythrocyte sedimentation ra teOrdered By: Wei Garsia on 10-28-2023 ESR (Bld) [Velocity] 11 mm/h 0-30 [facility] Hematocrit Auto (Bld) [Volum e fraction]Ordered By: Wei Garsia on 10-28-2023 Hematocrit (Bld) [Volume fraction] 41.9 % 37-47 [facility] Immature granulocytes/100 WB C Auto (Bld)Ordered By: Wei Garsia on 10-28-2023 Immature granulocytes/100 WBC (Bld) 0.200 % 0.0-0.9 [facility] Comment on above: IG% - Immature Granu locytes (promyelocytes, myelocytes and metamyelocytes) > 1% indicates that a LEFT SHIFT is Present. Laboratory - Chemistry and C hemistry - challengeOrdered By: Wei Garsia on 10-28-2023 Albumin/Globulin [Mass ratio] 1.3 {ratio} 0.9-2.4 [facility] ALP [Catalytic activity/Vol] 96 U/L 45-117 [facility] ALT [Catalytic activity/Vol] 25 U/L 13-56 [facility] CO2 [Moles/Vol] 27.0 mmol/L 21.0-32.0 [facility] Globulin (S) [Mass/Vol] 3.0 g/dL 2.2-4.2 [facility] Urea nitrogen/Creatinine [Mass ratio] 23.9 mg/mg 10-20 [facility] Laboratory - Hematology and Cell countsOrdered By: Wei Garsia on 10-28-2023 MCH (RBC) [Entitic mass] 26.6 pg 27.0-32.0 [facility] MCHC (RBC) [Mass/Vol] 30.5 g/dL 32-36 [facility] Nucleated RBC/100 WBC (Bld) [Ratio] 0 % 0-5 [facility] Platelet mean volume (Bld) [Entitic vol] 10.6 fL 6.2-12.0 [facility] Platelets (Bld) [#/Vol] 235 10*3/uL 150-450 [facility] No Panel InformationOrdered By: Wei Garsia on 10-28-2023 Anti-Nuclear Antibody Screen Negative [facility] C-Reactive Protein Extended Range 3.05 mg/L 0.0-3.0 [facility] Comment on above: C-Reactive Protein ( CRP) provides useful information for thediagnosis, therapy and monitoring of inflammatory processesand associated diseases. For the evaluation of Relative Riskfor Cardiovascular Disease, a High Sensitivity CRP (HSCRP)should be ordered. Centromere B Antibody Not Reportable [facility] Estimated GFR (MDRD) Amer 61 mL/min >60 [facility] Comment on above: GFR Calc Estimated GFR (MDRD) Non-Af Amer 51 mL/min >60 [facility] Comment on above: Non- GFR Calc YANI-1 Antibody Not Reportable [facility] DICTATING MACHINE MECHANIC Antibody Not Reportable [facility] SM Antibody Not Reportable [facility] SS-A/Ro IgG Antibody Not Reportable [facility] SS-B/La IgG Antibody Not Reportable [facility] RBC Auto (Bld) [#/Vol]Ordere d By: Wei Garsia on 10-28-2023 RBC (Bld) [#/Vol] 4.81 10*6/uL 4.2-5.4 [facility] Serum DNA double strand anti body assay (units/volume)Ordered By: Wei Garsia on 10-28-2023 DNA double strand Ab Qn (S) Not Reportable [facility] Serum Scl-70 antibody assay (units/volume)Ordered By: Wei Garsia on 10-28-2023 SCL-70 extractable nuclear Ab Qn (S) Not Reportable [facility] Serum or plasma calcium bola urement (mass/volume)Ordered By: Wei Garsia on 10-28-2023 Calcium [Mass/Vol] 9.5 mg/dL 8.5-10.1 [facility] Serum or plasma creatinine m easurement (mass/volume)Ordered By: Wei Garsia on 10-28-2023 Creatinine [Mass/Vol] 1.09 mg/dL 0.55-1.02 [facility] Comment on above: The validity of the calculated GFR & GFRAA in patients over 70 years has not been determined. Clinical correlation is essential. Serum or plasma urea nitroge n measurement (mass/volume)Ordered By: Wei Garsia on 10-28-2023 Urea nitrogen [Mass/Vol] 26 mg/dL 7-18 [facility] Thin prep Papanicolaou smear with manual screeningOrdered By: Wei Garsia on 10-28-2023 Thin prep Papanicolaou smear with manual screening 3.9 g/dL 3.2-5.0 [facility] Thin prep Papanicolaou smear with manual screening 23 U/L 15-37 [facility] Thin prep Papanicolaou smear with manual screening 6 5-15 [facility] Culture, urineOrdered By: Stefan Garsia on 09-02-2023 Bacteria identified Cx Nom (U) Escherichia coli [facility] Bacteria identified Cx Nom (U) Escherichia coli [facility] Absolute lymphocyte countOrd ered By: Dr. Garsia on 12-11-2022 Lymphocytes Auto (Unsp spec) [#/Vol] 2.98 10*3/uL 0.83-4.51 [facility] Basophil percentageOrdered B y: Dr. Garsia on 12-11-2022 Basophils/100 WBC (Bld) 0.9 % 0-1 [facility] Bilirubin [Mass/Vol] 0.60 mg/dL 0.20-1.00 [facility] Comment on above: For patients on eltr ombopag therapy, use of Dimension Cross TBIL is not recommended. Chloride [Moles/Vol] 107 mmol/L 98-107 [facility] Cholesterol [Mass/Vol] 133 mg/dL <200 [facility] Comment on above: <200 mg/dL Desirable 200-240 mg/dL Borderline >240 mg/dL High Risk Eosinophils/100 WBC (Bld) 2.6 % 0-5 [facility] Glucose [Mass/Vol] 116 mg/dL 74-106 [facility] Comment on above: Fasting Glucose resu lt from 100 to 125 mg/dL suggests IMPAIRED HOMEOSTASIS per A.D.A. criteria. Neutrophils (Bld) [#/Vol] 3.9 10*3/uL 2.0-7.7 [facility] Neutrophils/100 WBC (Bld) 49.9 % 47-70 [facility] Potassium [Moles/Vol] 4.3 mmol/L 3.5-5.1 [facility] Protein [Mass/Vol] 6.7 g/dL 6.4-8.2 [facility] Sodium [Moles/Vol] 141 mmol/L 136-145 [facility] Triglyceride [Mass/Vol] 96 mg/dL <199 [facility] Comment on above: The drugs N-Acetylcy steine and Metamizole may falsely depress this assay.Serum Triglycerides Reference Interval Normal <150 mg/dL Borderline high 150 - 199 mg/dL High 200 - 499 mg/dL Very High > or = 500 mg/dL WBC (Bld) [#/Vol] 7.8 10*3/uL 4.4-11.0 [facility] Blood erythrocytes count (nu mber/volume)Ordered By: Dr. Garsia on 12-11-2022 RBC (Bld) [#/Vol] 4.78 10*6/uL 4.2-5.4 [facility] Blood hemoglobin measurement (mass/volume)Ordered By: Dr. Garsia on 12-11-2022 Hemoglobin (Bld) [Mass/Vol] 13.1 g/dL 12.0-15.0 [facility] Blood lymphocytes/100 leukoc ytesOrdered By: Dr. Garsia on 12-11-2022 Lymphocytes/100 WBC (Bld) 38.3 % 19-41 [facility] Blood monocytes/100 leukocyt esOrdered By: Dr. Garsia on 12-11-2022 Monocytes/100 WBC (Bld) 8.0 % 0-10 [facility] Blood platelet mean volumeOr dered By: Dr. Garsia on 12-11-2022 Platelet mean volume (Bld) [Entitic vol] 10.6 fL 6.2-12.0 [facility] Determination of erythrocyte mean corpuscular volume (MCV)Ordered By: Dr. Garsia on 12-11-2022 MCV (RBC) [Entitic vol] 89.3 fL 81-99 [facility] Direct bilirubinOrdered By: Dr. Garsia on 12-11-2022 Bilirubin.direct [Mass/Vol] 0.14 mg/dL 0.00-0.30 [facility] Hematocrit Auto (Bld) [Volum e fraction]Ordered By: Dr. Garsia on 12-11-2022 Hematocrit (Bld) [Volume fraction] 42.7 % 37-47 [facility] Laboratory - Chemistry and C hemistry - challengeOrdered By: Dr. Garsia on 12-11-2022 ALP [Catalytic activity/Vol] 113 U/L 45-117 [facility] ALT [Catalytic activity/Vol] 36 U/L 13-56 [facility] CO2 [Moles/Vol] 28.0 mmol/L 21.0-32.0 [facility] Globulin (S) [Mass/Vol] 3.1 g/dL 2.2-4.2 [facility] Magnesium [Mass/Vol] 2.0 mg/dL 1.6-2.6 [facility] Urea nitrogen/Creatinine [Mass ratio] 24.3 mg/mg 10-20 [facility] Laboratory - Hematology and Cell countsOrdered By: Dr. Garsia on 12-11-2022 Erythrocyte distribution width (RBC) [Entitic vol] 48.3 fL 35.1-43.9 [facility] Erythrocyte distribution width (RBC) [Ratio] 14.6 % 11.6-14.6 [facility] Immature granulocytes/100 WBC (Bld) 0.300 % 0.0-0.9 [facility] Comment on above: IG% - Immature Granu locytes (promyelocytes, myelocytes and metamyelocytes) > 1% indicates that a LEFT SHIFT is Present. MCH (RBC) [Entitic mass] 27.4 pg 27.0-32.0 [facility] Nucleated RBC/100 WBC (Bld) [Ratio] 0 % 0-5 [facility] MCHC Auto (RBC) [Mass/Vol]Or dered By: Dr. Garsia on 12-11-2022 MCHC (RBC) [Mass/Vol] 30.7 g/dL 32-36 [facility] No Panel InformationOrdered By: Dr. Garsia on 12-11-2022 Estimated GFR (MDRD) Amer 72 mL/min >60 [facility] Comment on above: GFR Calc Estimated GFR (MDRD) Non-Af Amer 60 mL/min >60 [facility] Comment on above: Non- GFR Calc Platelets bldOrdered By: Dr. Garsia on 12-11-2022 Platelets (Bld) [#/Vol] 241 10*3/uL 150-450 [facility] Serum or plasma albumin bola urement (mass/volume)Ordered By: Dr. Garsia on 12-11-2022 Albumin [Mass/Vol] 3.6 g/dL 3.2-5.0 [facility] Serum or plasma albumin/glob ulin mass ratioOrdered By: Dr. Garsia on 12-11-2022 Albumin/Globulin [Mass ratio] 1.2 {ratio} 0.9-2.4 [facility] Serum or plasma calcium bola urement (mass/volume)Ordered By: Dr. Garsia on 12-11-2022 Calcium [Mass/Vol] 9.1 mg/dL 8.5-10.1 [facility] Serum or plasma cholesterol in HDL measurement (mass/volume)Ordered By: Dr. Garsia on 12-11-2022 Cholesterol in HDL [Mass/Vol] 67 mg/dL >40 [facility] Comment on above: The drugs N-Acetylcy steine and Metamizole may falsely depress this assay. Reference Range HDL <40 mg/dL Low HDL Cholesterol HDL >or= 60 mg/dL High HDL Cholesterol Serum or plasma cholesterol in VLDL measurement (mass/volume)Ordered By: Dr. Garsia on 12-11-2022 Cholesterol in VLDL [Mass/Vol] 19 mg/dL 5-40 [facility] Serum or plasma creatinine m easurement (mass/volume)Ordered By: Dr. Garsia on 12-11-2022 Creatinine [Mass/Vol] 0.95 mg/dL 0.55-1.02 [facility] Comment on above: The validity of the calculated GFR & GFRAA in patients over 70 years has not been determined. Clinical correlation is essential. Serum or plasma low density lipoprotein (LDL) cholesterol measurement (mass/volume)Ordered By: Dr. Garsia on 12-11-2022 Cholesterol in LDL [Mass/Vol] 47 mg/dL 0-130 [facility] Serum or plasma urea nitroge n measurement (mass/volume)Ordered By: Dr. Garsia on 12-11-2022 Urea nitrogen [Mass/Vol] 23 mg/dL 7-18 [facility] Thin prep Papanicolaou smear with manual screeningOrdered By: Dr. Garsia on 12-11-2022 Thin prep Papanicolaou smear with manual screening 38 U/L 15-37 [facility] Thin prep Papanicolaou smear with manual screening 6 5-15 [facility] Whole blood hemoglobin A1c/t otal hemoglobin ratio (mass fraction)Ordered By: Dr. Garsia on 12-11-2022 HbA1c (Bld) [Mass fraction] 6.3 % 3.8-5.6 [facility] Comment on above: Normal < 5.7 % Predi abetic 5.7 - 6.4 % Diabetic >or= 6.5 % Please note range changes. Absolute lymphocyte countOrd ered By: Dr. Garsia on 10-11-2022 Lymphocytes Auto (Unsp spec) [#/Vol] 2.62 10*3/uL 0.83-4.51 [facility] Basophil percentageOrdered B y: Dr. Garsia on 10-11-2022 Basophils/100 WBC (Bld) 0.6 % 0-1 [facility] Bilirubin [Mass/Vol] 0.40 mg/dL 0.20-1.00 [facility] Comment on above: For patients on eltr ombopag therapy, use of Dimension Cross TBIL is not recommended. Chloride [Moles/Vol] 104 mmol/L 98-107 [facility] Eosinophils/100 WBC (Bld) 3.1 % 0-5 [facility] Glucose [Mass/Vol] 80 mg/dL 74-106 [facility] Neutrophils (Bld) [#/Vol] 7.5 10*3/uL 2.0-7.7 [facility] Neutrophils/100 WBC (Bld) 63.9 % 47-70 [facility] Potassium [Moles/Vol] 5.0 mmol/L 3.5-5.1 [facility] Protein [Mass/Vol] 7.3 g/dL 6.4-8.2 [facility] Sodium [Moles/Vol] 139 mmol/L 136-145 [facility] WBC (Bld) [#/Vol] 11.7 10*3/uL 4.4-11.0 [facility] Blood erythrocytes count (nu mber/volume)Ordered By: Dr. Garsia on 10-11-2022 RBC (Bld) [#/Vol] 4.58 10*6/uL 4.2-5.4 [facility] Blood hemoglobin measurement (mass/volume)Ordered By: Dr. Garsia on 10-11-2022 Hemoglobin (Bld) [Mass/Vol] 12.4 g/dL 12.0-15.0 [facility] Blood lymphocytes/100 leukoc ytesOrdered By: Dr. Garsia on 10-11-2022 Lymphocytes/100 WBC (Bld) 22.4 % 19-41 [facility] Blood monocytes/100 leukocyt esOrdered By: Dr. Garsia on 10-11-2022 Monocytes/100 WBC (Bld) 9.7 % 0-10 [facility] Blood platelet mean volumeOr dered By: Dr. Garsia on 10-11-2022 Platelet mean volume (Bld) [Entitic vol] 10.7 fL 6.2-12.0 [facility] COVID-19 virus antigen assay Ordered By: Dr. Garsia on 10-11-2022 SARS-CoV-2 (COVID-19) Ag IA.rapid Ql (Resp) Not detected Not Detect [facility] Comment on above: Normal Reference Ran ge: Not DetectedMethod:(RT-PCR) real-time reverse transcriptase PCRLuminex Cardiosolutions Instrument*The Food and Drug Administration (FDA) has issued an Emergency Use Authorization (EAU) for the Cardiosolutions SARS-CoV-2 Assay for the rapid detection of [...] (RBC) [Entitic vol] 89.3 fL 81-99 [facility] Hematocrit Auto (Bld) [Volum e fraction]Ordered By: Dr. Garsia on 10-11-2022 Hematocrit (Bld) [Volume fraction] 40.9 % 37-47 [facility] Laboratory - Chemistry and C hemistry - challengeOrdered By: Dr. Garsia on 10-11-2022 ALP [Catalytic activity/Vol] 247 U/L 45-117 [facility] ALT [Catalytic activity/Vol] 71 U/L 13-56 [facility] CO2 [Moles/Vol] 29.0 mmol/L 21.0-32.0 [facility] Globulin (S) [Mass/Vol] 3.5 g/dL 2.2-4.2 [facility] Urea nitrogen/Creatinine [Mass ratio] 21.0 mg/mg 10-20 [facility] Laboratory - Hematology and Cell countsOrdered By: Dr. Garsia on 10-11-2022 Erythrocyte distribution width (RBC) [Entitic vol] 49.1 fL 35.1-43.9 [facility] Erythrocyte distribution width (RBC) [Ratio] 14.9 % 11.6-14.6 [facility] Immature granulocytes/100 WBC (Bld) 0.300 % 0.0-0.9 [facility] Comment on above: IG% - Immature Granu locytes (promyelocytes, myelocytes and metamyelocytes) > 1% indicates that a LEFT SHIFT is Present. MCH (RBC) [Entitic mass] 27.1 pg 27.0-32.0 [facility] Nucleated RBC/100 WBC (Bld) [Ratio] 0 % 0-5 [facility] MCHC Auto (RBC) [Mass/Vol]Or dered By: Dr. Garsia on 10-11-2022 MCHC (RBC) [Mass/Vol] 30.3 g/dL 32-36 [facility] No Panel InformationOrdered By: Dr. Garsia on 10-11-2022 Estimated GFR (MDRD) Amer 64 mL/min >60 [facility] Comment on above: GFR Calc Estimated GFR (MDRD) Non-Af Amer 53 mL/min >60 [facility] Comment on above: Non- GFR Calc Platelets bldOrdered By: Dr. Garsia on 10-11-2022 Platelets (Bld) [#/Vol] 257 10*3/uL 150-450 [facility] Serum or plasma albumin bola urement (mass/volume)Ordered By: Dr. Garsia on 10-11-2022 Albumin [Mass/Vol] 3.8 g/dL 3.2-5.0 [facility] Serum or plasma albumin/glob ulin mass ratioOrdered By: Dr. Garsia on 10-11-2022 Albumin/Globulin [Mass ratio] 1.1 {ratio} 0.9-2.4 [facility] Serum or plasma calcium bola urement (mass/volume)Ordered By: Dr. Garsia on 10-11-2022 Calcium [Mass/Vol] 9.8 mg/dL 8.5-10.1 [facility] Serum or plasma creatinine m easurement (mass/volume)Ordered By: Dr. Garsia on 10-11-2022 Creatinine [Mass/Vol] 1.05 mg/dL 0.55-1.02 [facility] Comment on above: The validity of the calculated GFR & GFRAA in patients over 70 years has not been determined. Clinical correlation is essential. Serum or plasma urea nitroge n measurement (mass/volume)Ordered By: Dr. Garsia on 10-11-2022 Urea nitrogen [Mass/Vol] 22 mg/dL 7-18 [facility] Thin prep Papanicolaou smear with manual screeningOrdered By: Dr. Garsia on 10-11-2022 Thin prep Papanicolaou smear with manual screening 67 U/L 15-37 [facility] Thin prep Papanicolaou smear with manual screening 6 5-15 [facility] No Panel InformationOrdered By: Dr. Srinivasan on 09-02-2022 Miscellaneous Test See comment [facility] Comment on above: TEST RESULT LIMITSI0 04-IgE [...] TEST SITE INFORMATION. Tryptase 6.6 ug/L 2.2-13.2 [facility] Comment on above: Performed at: - [address] [id number] Director: Rodo Henderson MD, Phone: [phone] Absolute lymphocyte counton 11-24-2021 Lymphocytes Auto (Unsp spec) [#/Vol] 2.94 10*3/uL 0.83-4.51 [facility] Work Phone: Basophil percentageon 2021 Basophils/100 WBC (Bld) 0.7 % 0-1 [facility] Work Phone: Bilirubin [Mass/Vol] 0.50 mg/dL 0.20-1.00 [facility] Work Phone: Comment on above: For patients on eltr ombopag therapy, use of Dimension Cross TBIL is not recommended. Chloride [Moles/Vol] 107 mmol/L 98-107 [facility] Work Phone: Cholesterol [Mass/Vol] 125 mg/dL <200 [facility] Work Phone: Comment on above: <200 mg/dL Desirable 200-240 mg/dL Borderline >240 mg/dL High Risk Eosinophils/100 WBC (Bld) 3.2 % 0-5 [facility] Work Phone: Glucose [Mass/Vol] 134 mg/dL 74-106 [facility] Work Phone: Comment on above: Fasting Glucose resu lt greater than or equal to 126 mg/dL suggests DIABETES MELLITUS per A.D.A. criteria. Neutrophils (Bld) [#/Vol] 4.0 10*3/uL 2.0-7.7 [facility] Work Phone: Neutrophils/100 WBC (Bld) 50.1 % 47-70 [facility] Work Phone: Potassium [Moles/Vol] 4.5 mmol/L 3.5-5.1 [facility] Work Phone: Protein [Mass/Vol] 6.7 g/dL 6.4-8.2 [facility] Work Phone: Sodium [Moles/Vol] 140 mmol/L 136-145 [facility] Work Phone: Triglyceride [Mass/Vol] 100 mg/dL [facility] Work Phone: Comment on above: The drugs N-Acetylcy steine and Metamizole may falsely depress this assay.Serum Triglycerides Reference Interval Normal <150 mg/dL Borderline high 150 - 199 mg/dL High 200 - 499 mg/dL Very High > or = 500 mg/dL WBC (Bld) [#/Vol] 8.0 10*3/uL 4.4-11.0 [facility] Work Phone: Blood erythrocytes count (nu mber/volume)on 11-24-2021 RBC (Bld) [#/Vol] 4.69 10*6/uL 4.2-5.4 [facility] Work Phone: Blood hemoglobin measurement (mass/volume)on 11-24-2021 Hemoglobin (Bld) [Mass/Vol] 12.9 g/dL 12.0-15.0 [facility] Work Phone: Blood lymphocytes/100 leukoc yteson 11-24-2021 Lymphocytes/100 WBC (Bld) 36.6 % 19-41 [facility] Work Phone: [phone] Blood monocytes/100 leukocyt eson 11-24-2021 Monocytes/100 WBC (Bld) 9.3 % 0-10 [facility] Work Phone: Blood platelet mean volumeon 11-24-2021 Platelet mean volume (Bld) [Entitic vol] 10.0 fL 6.2-12.0 [facility] Work Phone: Determination of erythrocyte mean corpuscular volume (MCV)on 11-24-2021 MCV (RBC) [Entitic vol] 86.6 fL 81-99 [facility] Work Phone: Direct bilirubinon 2 Bilirubin.direct [Mass/Vol] 0.13 mg/dL 0.00-0.30 [facility] Work Phone: Hematocrit Auto (Bld) [Volum e fraction]on 11-24-2021 Hematocrit (Bld) [Volume fraction] 40.6 % 37-47 [facility] Work Phone: Laboratory - Chemistry and C hemistry - challengeon 11-24-2021 ALP [Catalytic activity/Vol] 96 U/L 45-117 [facility] Work Phone: ALT [Catalytic activity/Vol] 27 U/L 13-56 [facility] Work Phone: CO2 [Moles/Vol] 29.0 mmol/L 21.0-32.0 [facility] Work Phone: Globulin (S) [Mass/Vol] 3.0 g/dL 2.2-4.2 [facility] Work Phone: Magnesium [Mass/Vol] 2.2 mg/dL 1.6-2.6 [facility] Work Phone: Urea nitrogen/Creatinine [Mass ratio] 24.1 mg/mg 10-20 [facility] Work Phone: Laboratory - Hematology and Cell countson 11-24-2021 Erythrocyte distribution width (RBC) [Entitic vol] 45.5 fL 35.1-43.9 [facility] Work Phone: Erythrocyte distribution width (RBC) [Ratio] 14.3 % 11.6-14.6 [facility] Work Phone: Immature granulocytes/100 WBC (Bld) 0.100 % 0.0-0.9 [facility] Work Phone: Comment on above: IG% - Immature Granu locytes (promyelocytes, myelocytes and metamyelocytes) > 1% indicates that a LEFT SHIFT is Present. MCH (RBC) [Entitic mass] 27.5 pg 27.0-32.0 [facility] Work Phone: Nucleated RBC/100 WBC (Bld) [Ratio] 0 % 0-5 [facility] Work Phone: MCHC Auto (RBC) [Mass/Vol]on 11-24-2021 MCHC (RBC) [Mass/Vol] 31.8 g/dL 32-36 [facility] Work Phone: No Panel Informationon 11-24 Estimated GFR (MDRD) Amer 62 mL/min >60 [facility] Work Phone: Comment on above: GFR Calc Estimated GFR (MDRD) Non-Af Amer 51 mL/min >60 [facility] Work Phone: Comment on above: Non- GFR Calc Platelets bldon 11-24-2021 Platelets (Bld) [#/Vol] 240 10*3/uL 150-450 [facility] Work Phone: Serum or plasma albumin bola urement (mass/volume)on 11-24-2021 Albumin [Mass/Vol] 3.7 g/dL 3.2-5.0 [facility] Work Phone: Serum or plasma calcium bola urement (mass/volume)on 11-24-2021 Calcium [Mass/Vol] 9.2 mg/dL 8.5-10.1 [facility] Work Phone: Serum or plasma cholesterol in HDL measurement (mass/volume)on 11-24-2021 Cholesterol in HDL [Mass/Vol] 53 mg/dL [facility] Work Phone: Comment on above: The drugs N-Acetylcy steine and Metamizole may falsely depress this assay. Reference Range HDL <40 mg/dL Low HDL Cholesterol HDL >or= 60 mg/dL High HDL Cholesterol Serum or plasma cholesterol in VLDL measurement (mass/volume)on 11-24-2021 Cholesterol in VLDL [Mass/Vol] 20 mg/dL 5-40 [facility] Work Phone: Serum or plasma creatinine m easurement (mass/volume)on 11-24-2021 Creatinine [Mass/Vol] 1.08 mg/dL 0.55-1.02 [facility] Work Phone: Comment on above: The validity of the calculated GFR & GFRAA in patients over 70 years has not been determined. Clinical correlation is essential. Serum or plasma low density lipoprotein (LDL) cholesterol measurement (mass/volume)on 11-24-2021 Cholesterol in LDL [Mass/Vol] 52 mg/dL 0-130 [facility] Work Phone: Serum or plasma urea nitroge n measurement (mass/volume)on 11-24-2021 Urea nitrogen [Mass/Vol] 26 mg/dL 7-18 [facility] Work Phone: Thin prep Papanicolaou smear with manual screeningon 11-24-2021 Thin prep Papanicolaou smear with manual screening 23 U/L 15-37 [facility] Work Phone: Thin prep Papanicolaou smear with manual screening 4 5-15 [facility] Work Phone: Vital Signs Date Time Vital Sign Value Performing Clinician Facility 02-14-2025 13:49-0400 Body height 167.[address] Wei Garsia DO Work Phone: [facility] 02-14-2025 13:49-0400 Body mass index (BMI) [Ratio] 26.6 kg/m2 Dr. Wei Garsia DO Work Phone: [facility] 02-14-2025 13:49-0400 Body weight 74.[address] Wei Garsia DO Work Phone: [facility] 02-14-2025 13:49-0400 Diastolic blood pressure 69 mm[Hg] Dr. Wei Garsia DO Work Phone: [facility] 02-14-2025 13:49-0400 Heart rate 73 /min Dr. eWi Garsia DO Work Phone: [facility] 02-14-2025 13:49-0400 Respiratory rate 18 /min Dr. Wei Garsia DO Work Phone: [facility] 02-14-2025 13:49-0400 Systolic blood pressure 111 mm[Hg] Dr. Wei Garsia DO Work Phone: [facility] 01-12-2025 10:27-0400 Body height 170.2 cm Garret Sanchez MD Work Phone: [facility] 01-12-2025 10:27-0400 Body mass index (BMI) [Ratio] 26.63 kg/m2 Garret Sanchez MD Work Phone: [facility] 01-12-2025 10:27-0400 Body temperature 98.2 [degF] Garret Sanchez MD Work Phone: [facility] 01-12-2025 10:27-0400 Body weight 77.11 kg Garret Sanchez MD Work Phone: [facility] 10-13-2024 13:12-0400 Body height 170.2 cm Garret Sanchez MD Work Phone: [facility] 10-13-2024 13:12-0400 Body mass index (BMI) [Ratio] 26.16 kg/m2 Garret Sanchez MD Work Phone: [facility] 10-13-2024 13:12-0400 Body weight 75.75 kg Garret Sanchez MD Work Phone: [facility] 10-13-2024 13:12-0400 Diastolic blood pressure 66 mm[Hg] Garret Sanchez MD Work Phone: [facility] 10-13-2024 13:12-0400 Heart rate 68 /min Garret Sanchez MD Work Phone: [facility] 10-13-2024 13:12-0400 Systolic blood pressure 162 mm[Hg] Garret Sanchez MD Work Phone: [facility] 07-07-2024 08:26-0500 Diastolic blood pressure 76 mm[Hg] Garret Sanchez MD Work Phone: [facility] 07-07-2024 08:26-0500 Systolic blood pressure 166 mm[Hg] Garret Sanchez MD Work Phone: [facility] 07-07-2024 08:02-0500 Body height 170.2 cm Garret Sanchez MD Work Phone: [facility] 07-07-2024 08:02-0500 Body mass index (BMI) [Ratio] 26.16 kg/m2 Garret Sanchez MD Work Phone: [facility] 07-07-2024 08:02-0500 Body weight 75.75 kg Garret Sanchez MD Work Phone: [facility] 07-07-2024 08:02-0500 Heart rate 78 /min Garret Sanchez MD Work Phone: [facility] 03-03-2024 14:13-0400 Body height 170.2 cm Garret Sanchez MD Work Phone: [facility] 03-03-2024 14:13-0400 Body mass index (BMI) [Ratio] 26.16 kg/m2 Garret Sanchez MD Work Phone: [facility] 03-03-2024 14:13-0400 Body weight 75.75 kg Garret Sanchez MD Work Phone: [facility] 12-03-2023 11:54-0400 Body temperature 99.3 [degF] Garret Sanchez MD Work Phone: [facility] 12-03-2023 11:54-0400 Diastolic blood pressure 93 mm[Hg] Garret Sanchez MD Work Phone: [facility] 12-03-2023 11:54-0400 Heart rate 66 /min Garret Sanchez MD Work Phone: [facility] 12-03-2023 11:54-0400 Systolic blood pressure 149 mm[Hg] Garret Sanchez MD Work Phone: [facility] 11-11-2023 13:45-0400 Body height 170.[address] Wei Garsia Work Phone: [facility] 11-11-2023 13:45-0400 Body mass index (BMI) [Ratio] 27.6 kg/m2 Dr. Wei Garsia Work Phone: [facility] 11-11-2023 13:45-0400 Body weight 79.[address] Wei Garsia Work Phone: [facility] 11-11-2023 13:45-0400 Diastolic blood pressure 71 mm[Hg] Dr. Wei Garsia Work Phone: [facility] 11-11-2023 13:45-0400 Heart rate 65 /min Dr. Wei Garsia Work Phone: [facility] 11-11-2023 13:45-0400 Respiratory rate 18 /min Dr. Wei Garsia Work Phone: [facility] 11-11-2023 13:45-0400 Systolic blood pressure 109 mm[Hg] Dr. Wei Garsia Work Phone: [facility] 10-15-2023 11:25-0400 Body temperature 97 [degF] Garret Sanchez MD Work Phone: [facility] 10-15-2023 11:25-0400 Diastolic blood pressure 88 mm[Hg] Garret Sanchez MD Work Phone: [facility] 10-15-2023 11:25-0400 Heart rate 71 /min Garret Sanchez MD Work Phone: [facility] 10-15-2023 11:25-0400 Systolic blood pressure 135 mm[Hg] Garret Sanchez MD Work Phone: [facility] [employer] 07-09-2023 15:23-0500 Diastolic blood pressure 87 mm[Hg] Garret Sanchez MD Work Phone: [facility] [employer] 07-09-2023 15:23-0500 Heart rate 63 /min Garret Sanchez MD Work Phone: [facility] [employer] 07-09-2023 15:23-0500 Systolic blood pressure 148 mm[Hg] Garret Sanchez MD Work Phone: [facility] [employer] 04-09-2023 14:05-0400 Body height 170.2 cm Garret Sanchez MD Work Phone: [facility] [employer] 04-09-2023 14:05-0400 Body mass index (BMI) [Ratio] 26.16 kg/m2 Garret Sanchez MD Work Phone: [facility] [employer] 04-09-2023 14:05-0400 Body temperature 97.59 [degF] Garret Sanchez MD Work Phone: [facility] [employer] 04-09-2023 14:05-0400 Body weight 75.75 kg Garret Sanchez MD Work Phone: [facility] [employer] 04-09-2023 14:05-0400 Diastolic blood pressure 60 mm[Hg] Garret Sanchez MD Work Phone: [facility] [employer] 04-09-2023 14:05-0400 Heart rate 63 /min Garret Sanchez MD Work Phone: [facility] [employer] 04-09-2023 14:05-0400 Systolic blood pressure 144 mm[Hg] Garret Sanchez MD Work Phone: [facility] [employer] 01-01-2023 13:49-0400 Body temperature 97.5 [degF] Garret Sanchez MD Work Phone: [facility] [employer] 01-01-2023 13:49-0400 Diastolic blood pressure 88 mm[Hg] Garret Sanchez MD Work Phone: [facility] 01-01-2023 13:49-0400 Systolic blood pressure 146 mm[Hg] Garret Sanchez MD Work Phone: [facility] 12-09-2022 10:34-0400 Body height 170.[address] Wei Garsia Work Phone: [facility] 12-09-2022 10:34-0400 Body mass index (BMI) [Ratio] 27.1 kg/m2 Dr. Wei Garsia Work Phone: [facility] 12-09-2022 10:34-0400 Body weight 78.[address] Wei Garsia Work Phone: [facility] 12-09-2022 10:34-0400 Diastolic blood pressure 74 mm[Hg] Dr. Wei Garsia Work Phone: [facility] 12-09-2022 10:34-0400 Heart rate 72 /min Dr. Wei Garsia Work Phone: [facility] 12-09-2022 10:34-0400 Respiratory rate 16 /min Dr. Wei Garsia Work Phone: [facility] 12-09-2022 10:34-0400 Systolic blood pressure 133 mm[Hg] Dr. Wei Garsia Work Phone: [facility] 10-02-2022 13:18-0500 Body mass index (BMI) [Ratio] 26.16 kg/m2 Garret Sanchez MD Work Phone: [facility] 10-02-2022 13:18-0500 Body weight 75.75 kg Garret Sanchez MD Work Phone: [facility] 10-02-2022 13:18-0500 Diastolic blood pressure 74 mm[Hg] Garret Sanchez MD Work Phone: [facility] 10-02-2022 13:18-0500 Heart rate 88 /min Garret Sanchez MD Work Phone: [facility] 10-02-2022 13:18-0500 Systolic blood pressure 142 mm[Hg] Garret Sanchez MD Work Phone: [facility] 06-07-2022 11:11-0400 Body height 170.[address] Wei Garsia Work Phone: [facility] 06-07-2022 11:11-0400 Body mass index (BMI) [Ratio] 27.4 kg/m2 Dr. Wei Garsia Work Phone: [facility] 06-07-2022 11:11-0400 Body weight 79.[address] Wei Garsia Work Phone: [facility] 06-07-2022 11:11-0400 Diastolic blood pressure 64 mm[Hg] Dr. Wei Garsia Work Phone: [facility] 06-07-2022 11:11-0400 Heart rate 64 /min Dr. Wei Garsia Work Phone: [facility] 06-07-2022 11:11-0400 Respiratory rate 16 /min Dr. Wei Garsia Work Phone: [facility] 06-07-2022 11:11-0400 Systolic blood pressure 142 mm[Hg] Dr. Wei Garsia Work Phone: [facility] 11-07-2021 10:31-0400 Body height 170.[address] Wei Garsia Work Phone: [facility] Work Phone: 11-07-2021 10:31-0400 Body mass index (BMI) [Ratio] 26.2 kg/m2 Dr. Wei Garsia Work Phone: [facility] Work Phone: 11-07-2021 10:31-0400 Body weight 75.[address] Wei Garsia Work Phone: [facility] Work Phone: 11-07-2021 10:31-0400 Diastolic blood pressure 64 mm[Hg] Dr. Wei Garsia Work Phone: [facility] Work Phone: 11-07-2021 10:31-0400 Heart rate 88 /min Dr. Wei Garsia Work Phone: [facility] Work Phone: 11-07-2021 10:31-0400 Respiratory rate 20 /min Dr. Wei Garsia Work Phone: [facility] Work Phone: 11-07-2021 10:31-0400 Systolic blood pressure 120 mm[Hg] Dr. 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 Work Phone: Start: 02-14-2025 End: 02-14-[address] Wei Garsia DO Work Phone: -[facility] Start: 01-26-2025 End: 01-26-[address] Wei Garsia DO Work Phone: -[facility] Start: 01-26-2025 End: 01-26-[address] Wei Garsia DO -[facility] Work Phone: Start: 01-26-2025 End: 01-26-2025 ambulatory Wei Garsia Facility:[facility] Start: 01-17-2025 End: 01-17-[address] Wei Garsia DO Work Phone: [facility] Work Phone: Start: 01-17-2025 End: 01-17-[address] Wei Garsia DO -Laboratory [facility] Start: 01-17-2025 End: 01-17-2025 ambulatory [facility] Facility:[facility] Start: 01-12-2025 End: 01-12-2025 Patient encounter procedure Garret Sanchez MD Work Phone: [facility] on above: Blepharospasm of bot h eyes (Primary Dx); Torticollis; Cervical dystonia Start: 01-12-2025 End: 01-12-2025 ambulatory [facility] Start: 10-13-2024 End: 10-13-2024 Patient encounter procedure Garret Sanchez MD Work Phone: [facility] Comment on above: Blepharospasm of bot h eyes (Primary Dx) Start: 10-13-2024 End: 10-13-2024 ambulatory [facility] Start: 07-07-2024 End: 07-07-2024 Patient encounter procedure Garret Sanchez MD Work Phone: [facility] Comment on above: Blepharospasm of bot h eyes (Primary Dx); Torticollis Start: 07-07-2024 End: 07-07-2024 ambulatory GARRET SANCHEZ [facility] Start: 04-06-2024 End: 04-06-2024 [facility] Facility:[facility] Start: 03-28-2024 End: 03-28-2024 Emergency department patient visit Max Jacobs Facility:[facility] Start: 03-03-2024 End: 03-03-2024 Patient encounter procedure Garret Sanchez MD Work Phone: [facility] Comment on above: Cervical dystonia (P rimary Dx) Start: 03-03-2024 End: 03-03-2024 ambulatory GARRET SANCHEZ [facility] Start: 02-16-2024 End: 02-16-2024 Telephone encounter Garret Sanchez MD Work Phone: [facility] Start: 12-03-2023 End: 12-03-2023 Patient encounter procedure Garret Sanchez MD Work Phone: [facility] Comment on above: Cervical dystonia (P rimary Dx) Start: 11-12-2023 End: 11-12-[address] Wei Garsia Work Phone: [facility] Work Phone: Start: 11-12-2023 End: 11-12-[address] Wei Garsia Work Phone: [facility] Start: 11-11-2023 End: 11-11-[address] Wei Garsia Work Phone: [facility] Work Phone: Start: 11-11-2023 End: 11-11-[address] [facility] Start: 11-11-2023 End: 11-11-[address] Wei Garsia Work Phone: [facility] Work Phone: Start: 10-28-2023 End: 10-28-2023 ambulatory [facility] Work Phone: Start: 10-28-2023 End: 10-28-2023 Patient encounter procedure [facility] Work Phone: Start: 10-15-2023 End: 10-15-2023 Patient encounter procedure Garret Sanchez MD Work Phone: [facility] Comment on above: Cervical dystonia (P rimary Dx) Start: 09-02-2023 End: 09-02-2023 ambulatory [facility] Work Phone: Start: 09-02-2023 End: 09-02-2023 [facility] Work [facility]: Start: 07-09-2023 End: 07-09-2023 Patient encounter procedure Garret Sanchez MD Work Phone: [facility] Comment on above: Cervical dystonia (P rimary Dx) Start: 04-09-2023 End: 04-09-2023 Patient encounter procedure Garret Sanchez MD Work Phone: [facility] Comment on above: Cervical dystonia (P rimary Dx) Start: 01-01-2023 End: 01-01-2023 Patient encounter procedure Garret Sanchez MD Work Phone: [facility] Comment on above: Blepharospasm (Prima ry Dx) Start: 12-11-2022 End: 12-11-[address] Wei Garsia Work Phone: [facility] Work Phone: Start: 12-11-2022 End: 12-11-[address] Wei Garsia Work Phone: [facility] Start: 12-09-2022 End: 12-09-[address] Wei Garsia Work Phone: [facility] Start: 10-11-2022 End: 10-11-2022 ambulatory [facility] Work Phone: Start: 10-11-2022 End: 10-11-2022 Patient encounter procedure [facility] Gera Rocío [facility] Start: 10-02-2022 End: 10-02-2022 Patient encounter procedure Garret Sanchez MD Work Phone: [facility] Comment on above: Blepharospasm (Prima ry Dx) Start: 09-02-2022 End: 09-02-[address] Wei Garsia Work Phone: [facility] Work Phone: Start: 09-02-2022 End: 09-02-[address] Wei Garsia Work Phone: [facility]-Labor[facility] Start: 06-07-2022 End: 06-07-[address] Wei Garsia Work Phone: [facility] Start: 11-24-2021 End: 11-24-[address] Wei Garsia Work Phone: [facility]-Labor[facility] Start: 11-07-2021 End: 11-07-[address] Wei Garsia Work Phone: [facility] Procedures Date Procedure Procedure Detail Performing Clinician Start: 01-26-2025 Dual energy X-ray absorptiometry Dr. Wei Garsia DO Work Phone: Start: 01-17-2025 Vitamin D, 25-hydrox y measurement [...] procedure 04/13/2025 10:30 AM EDT Procedure Visit [address] [place] [address] [place] [address] Garret Sanchez MD [address] [place] [address] [address] [place], [place] [id number] [facility] Start: 04-04-2025 Influenza vaccination Influenza Vaccine (Season Ended) [facility] Start: 02-14-2025 Evaluation of diagnostic study results [facility] Start: 01-12-2025 End: 01-12-2025 Patient encounter procedure 01/12/2025 10:30 AM EDT Procedure Visit [facility] [address] [place] [address] [place] [phone] [facility] Start: 10-13-2024 End: 10-13-2024 Patient encounter procedure 10/13/2024 1:00 PM EDT Procedure Visit [facility] [address] [place] [address] [place] [phone] [facility] Start: 05-26-2024 End: 05-26-2024 Patient encounter procedure 05/26/2024 11:30 AM EDT Procedure Visit [facility] [address] [place] [address] [place] [phone] Garret Sanchez MD [address] [place] [address] [place], [place] [address] [facility] Start: 04-04-2024 COVID-19 Vaccine ( season) COVID-19 Vaccine ( season) [facility] Start: 04-04-2024 Influenza vaccination [facility] Start: 03-03-2024 End: 03-03-2024 Patient encounter procedure 03/03/2024 2:00 PM EDT Procedure Visit [facility] [address] [place] [address] [place] [phone] Garret Sanchez MD [address] [place] [address] [place] [address] [facility] Start: 12-03-2023 End: 12-03-2023 Patient encounter procedure 12/03/2023 12:00 PM EDT Procedure Visit [facility] [address] [facility] [place] [phone] Garret Sanchez MD [address] [place] [address] [place] [address] [facility] Start: 10-28-2023 [facility] Start: 10-15-2023 End: 10-15-2023 Patient encounter procedure 10/15/2023 11:45 AM EDT Procedure Visit [facility] [address] [place] [address] [place] [phone] Garret Sanchez MD [address] [address] [place] [address] [facility] Start: 07-09-2023 End: 07-09-2023 Patient encounter procedure 07/09/2023 3:00 PM EST Procedure Visit [facility] [address] [place] [address] [place] [phone] Garret Sanchez MD [address] [place] [address] [facility] Start: 04-09-2023 End: 04-09-2023 Patient encounter procedure 04/09/2023 Procedure Visit Neurology Garret Sanchez MD [address] [place] [address] [place] [address] [facility] Start: 04-04-2023 COVID-19 Vaccine ( season) COVID-19 Vaccine ( season) [facility] Start: 04-04-2023 Influenza vaccination Influenza Vaccine (#1) [facility] Start: 01-01-2023 End: 01-01-2023 Patient encounter procedure 01/01/2023 Procedure Visit Neurology Garret Sanchez MD [address] [place] [address] [place] [address] [facility] Start: 02-15-2022 COVID-19 Vaccine (5 - Booster for Moderna series) COVID-19 Vaccine (5 - Booster for Moderna series) [facility] Start: 01-04-2016 DTaP/Tdap/Td Vaccines (2 - Td or Tdap) DTaP/Tdap/Td Vaccines (2 - Td or Tdap) [facility] Start: 2012 RSV Immunization for Adults (1 - 1-dose 75+ series) RSV Immunization for Adults (1 - 1-dose 75+ series) [facility] Start: 2002 Pneumococcal Vaccine: 65+ Years (1 - PCV) Pneumococcal Vaccine: 65+ Years (1 - PCV) [facility] Start: 2002 Pneumococcal Vaccine: 65+ Years (1 of 1 - PCV) Pneumococcal Vaccine: 65+ Years (1 of 1 - PCV) [facility] Start: 1997 RSV Immunization aged 60 or older (1 - 1-dose 60+ series) RSV Immunization aged 60 or older (1 - 1-dose 60+ series) [facility] Start: 11-30-1987 Pneumococcal Vaccine: 50+ Years (1 of 1 - PCV) Pneumococcal Vaccine: 50+ Years (1 of 1 - PCV) [facility] Start: 11-30-1955 Diabetes mellitus screening Diabetes Screening [facility] Start: 1949 Depression Screening Depression Screening [facility] Start: 1937 Lipid panel Lipid Panel [facility] Start: 1935 Medicare Annual Wellness (AWV) Medicare Annual Wellness (AWV) [facility] Start: 1935 Screening for osteoporosis Bone Density Scan [facility] Antibody to lupus La protein measurement [facility] Antibody to SS-A measurement [facility] Cardiac event recording [facility] Centromere protein B Ab [Units/volume] in Serum [facility] Chromatin Ab [Units/volume] in Serum or Plasma [facility] Clam IgE Ab [Units/volume] in Serum [facility] Codfish IgE Ab [Units/volume] in Serum [facility] Dresden IgE Ab [Units/volume] in Serum [facility] Cow milk IgE Ab [Units/volume] in Serum [facility] DNA double strand Ab [Units/volume] in Serum [facility] Egg white IgE Ab [Units/volume] in Serum [facility] Yani-1 extractable nuclear Ab [Units/volume] in Serum [facility] Nuclear Ab [Presence ] in Serum [facility] Peanut IgE Ab [Units/volume] in Serum [facility] DICTATING MACHINE MECHANIC antibody measurement [facility] Scallop [facility] SCL-70 extractable nuclear Ab [Units/volume] in Serum by Immunoassay [facility] Sesame seed [facility] Shrimp IgE Ab [Units/volume] in Serum [facility] Anderson extractable nuclear Ab [Presence] in Serum [facility] Soybean IgE Ab [Units/volume] in Serum [facility] Lewis [facility] Wheat IgE Ab [Units/volume] in Serum [facility] Immunizations Immunization Date Immunization Notes Care Provider Fa cility 05-15-2022 influenza virus vaccine, unspecified formulation Garret Sanchez MD Work Phone: [facility] 09-28-2020 Covid (Moderna) Dr. Wei daigle Work Phone: [facility] 08-31-2020 Covid (Moderna) Dr. Wei daigle Work Phone: [facility] 05-09-2020 influenza, injectabl e, quadrivalent, preservative free [facility] 05-09-2020 influenza, seasonal, injectable Dr. Wei Garsia Work Phone: [facility] Payers Date Payer Category Payer Self-pay [id number] 2010 Commercial Managed C are - O [facility] [id number] 2010 Unknown [facility] [id number] 2010-Present [address] [place] [id number] Commercial [id number] 2010 Unknown [id number] 2004 Medicare [id number] 2002 Medicare [id number] Unknown [id number] Unknown [id number] Unknown [id number] Unknown [id number] Unknown [id number] Unknown [id number] Social History Date Type Detail Facility Start: 11-07-2021 End: 11-11-2023 Tobacco smoking status NHIS Unknown if ever smoked [facility] Start: 08-25-[address] [facility] Start: 08-25-2020 Spouse/ Signif icant Other [facility] Start: 08-13-2018 Non-smoker [facility] Start: 1935 Sex Assigned At Female W [facility] Start: 03-28-2024 Tobacco smoking status NHIS Never smoked tobacco [facility] Start: 01-01-2023 End: 01-12-2025 Alcohol intake Ex-drinker (finding) [facility] Start: 1935 Sex Assigned At Not on file S [facility] Start: 09-22-2022 End: 04-09-2023 Exposure to SARS-CoV-2 (event) Not sure [facility] Start: 01-01-2023 End: 01-12-2025 History of Social function [facility] Start: 01-01-2023 End: 01-12-2025 Tobacco use panel [facility] Start: 03-04-2022 Sex Female (finding) [facility] Clinical Notes 10-02-2022 to 01-12-2025 Viv [...] Sanchez MD Ordering Provider: Garret Sanchez MD [place]: [id number] (1) and [id number] (1) Lot#: [id number] (1), [id number] (1) Script Worker: [employer] Patient Supplied?: No DEPARTMENT OF NEUROLOGY [...] 2. L Frontalis 10 units 3. R Oyster Picker 10 units 4. L Oyster Picker 10 units 5. Right superior eyelid 7 [...] Garret Sanchez MD documented in this encounter [facility] 01-12-2025 Note DEPARTMENT OF NEUROL OGY [...] 2. L Frontalis 10 units 3. R Oyster Picker 10 units 4. L Oyster Picker 10 units 5. Right superior eyelid 7 [...] expectations reviewed in detail. Garret Sanchez MD [facility] 10-13-2024 History of Presen t illness Narrative [...] 2. L Frontalis 10 units 3. R Oyster Picker 10 units 4. L Oyster Picker 10 units 5. Right superior eyelid 7 [...] Sanchez MD Ordering Provider: Garret Sanchez MD [facility]: [id number] (x 3) Lot#: [id number] (x 3) Script Worker: [employer] Patient Supplied?: No documented in this encounter [facility] 10-13-2024 Note DEPARTMENT OF NEUROL OGY [...] 2. L Frontalis 10 units 3. R Oyster Picker 10 units 4. L Oyster Picker 10 units 5. Right superior eyelid 7 [...] expectations reviewed in detail. Garret Sanchez MD [facility] 07-07-2024 History of Presen t illness Narrative [...] 2. L Frontalis 10 units 3. R Oyster Picker 10 units 4. L Oyster Picker 10 units 5. Right superior eyelid 7 [...] Units Route IntraMUSCular Site Other Administered [facility] [place] Provider: Garret Sanchez MD [facility]:[id number] [id number] Lot#: [id number] x3 Script Worker: [email or web address] Patient Supplied?: no, buy and bill documented in this encounter [facility] 07-07-2024 Note DEPARTMENT OF NEUROL OGY [...] 2. L Frontalis 10 units 3. R Oyster Picker 10 units 4. L Oyster Picker 10 units 5. Right superior eyelid 7 [...] expectations reviewed in detail. Garret Sanchez MD [facility] 03-03-2024 History of Presen t illness Narrative [...] 2. L Frontalis 10 units 3. R Oyster Picker 10 units 4. L Oyster Picker 10 units 5. Right superior eyelid 7 [...] Units Route IntraMUSCular [place] [facility] [place] Provider: Garret Sanchez MD [facility]:[id number] x3 Lot#: [id number] x3 Script Worker: Allergan Patient Supplied?: No, buy and bill documented in this encounter [facility] 03-03-2024 Note DEPARTMENT OF NEUROL OGY [...] 2. L Frontalis 10 units 3. R Oyster Picker 10 units 4. L Oyster Picker 10 units 5. Right superior eyelid 7 [...] expectations reviewed in detail. Garret Sanchez MD [facility] 02-16-2024 Telephone encount er Note error [facility] 02-16-2024 Miscellaneous Notes Formattin g of this note might be different from the original. error documented in this encounter [facility] 12-03-2023 History of Presen t illness [...] 2. L Frontalis 10 units 3. R Oyster Picker 10 units 4. L Oyster Picker 10 units 5. Right superior eyelid 7 [...] Units Route IntraMUSCular Site Other [place] [facility] [place] Provider: Garret Sanchez MD [facility]:[id number] x3 Lot#: [id number] x3 Script Worker: Allergan Patient Supplied?: No, buy and bill documented in this encounter [facility] 10-15-2023 History of Presen t illness [...] GARRET SANCHEZ MD documented in this encounter [facility] 07-09-2023 History of Presen t illness [...] 2. L Frontalis 10 units 3. R Oyster Picker 10 units 4. L Oyster Picker 10 units 5. Right superior eyelid 7 [...] SANCHEZ MD Ordering Provider: GARRET SANCHEZ MD [facility]: [id number] x3 Lot#: [id number] x3 Script Worker: Allergan Patient Supplied?: No documented in this encounter [facility] 04-09-2023 History of Presen t illness [...] 2. L Frontalis 10 units 3. R Oyster Picker 10 units 4. L Oyster Picker 10 units 5. Right superior eyelid 7 [...] GARRET SANCHEZ MD documented in this encounter [facility] 04-09-2023 History of Presen t illness [...] 2. L Frontalis 10 units 3. R Oyster Picker 10 units 4. L Oyster Picker 10 units 5. Right superior eyelid 7 [...] SANCHEZ MD Ordering Provider: GARRET SANCHEZ MD [facility]: [id number], [id number] Lot#: [id number] Script Worker: Allergan Patient Supplied?: No documented in this encounter [facility] 01-01-2023 History of Presen t illness [...] 2. L Frontalis 10 units 3. R Oyster Picker 10 units 4. L Oyster Picker 10 units 5. Right superior eyelid 7 [...] MD Ordering Provider: GARRET SANCHEZ MD [place]: [id number] Lot#: [id number] Script Worker: Allergan Patient Supplied?: No Administrations This Visit onabotulinumtoxin A (BOTOX) injection 200 Units Admin Date 01/01/23 Action Given Dose 200 Units Route IntraMUSCular Site Other Administered By GARRET SANCHEZ MD Ordering Provider: GARRET SANCHEZ MD [facility]: [id number] Lot#: [id number] Script Worker: Allergan Patient Supplied?: No documented in this encounter [facility] 10-02-2022 History of Presen t illness [...] 2. L Frontalis 10 units 3. R Oyster Picker 10 units 4. L Oyster Picker 10 units 5. Right superior eyelid 7 [...] Sanchez MD Ordering Provider: Garret Sanchez MD [facility]:[id number] Lot#: [id number], [id number] Script Worker: Allergan Patient Supplied?: No documented in this encounter [facility] Diagnosis Onset Date Essential hypertension chron ic Nonrheumatic mitral (valve) prolapse chronic Paroxysmal atrial fibrillation chronic SVT (supraventricular tachycardia) [facility] Work Phone: Evaluation note* Diagnosis Onset Date Resolution Status HLD (hyperlipidemia) acute Essential hypertension chron ic Nonrheumatic mitral (valve) prolapse chronic Paroxysmal atrial fibrillation chronic SVT (supraventricular tachycardia) [facility] Work Phone: Evaluation noteNo assessment information available [facility] Work Phone: Evaluation note* Diagnosis Blepharospasm- Primary [facility] Diagnosis Cervical dystonia- Primary Spasmodic torticollis [facility] Diagnosis Cervical dystonia- Primary Spasmodic torticollis [facility] Diagnosis Cervical dystonia- Primary Spasmodic torticollis [facility] Diagnosis Cervical dystonia- Primary Spasmodic torticollis [facility] Diagnosis Onset Date Resolution Status HLD (hyperlipidemia) acute Essential hypertension chron ic Paroxysmal atrial fibrillation chronic [facility] Work Phone: Evaluation note* Diagnosis Cervical dystonia- Primary Spasmodic torticollis [facility] Diagnosis Blepharospasm of both eyes- Primary Torticollis Torticollis, unspecified [facility] Diagnosis Blepharospasm- Primary [facility] Diagnosis Blepharospasm of both eyes- Primary [facility] Diagnosis Blepharospasm of both eyes- Primary Torticollis Torticollis, unspecified Cervical dystonia Spasmodic torticollis [facility] Diagnosis Onset Date Resolution Status Admit Date Carotid stenosis, left acute Ju ly 2024 1:48pm Dizziness acute February 14 1:48pm HLD (hyperlipidemia) acute February 14, 2025 1:48pm Essential hypertension chronic Ju ly 2024 1:48pm Nonrheumatic mitral (valve) prolapse chronic February 14, 2025 1:48pm Paroxysmal atrial fibrillation chron ic February 14, 2025 1:48pm [facility] Work Phone: Reason for referral (narrative)No reason for referral [facility] Work Phone: Chief Complaint and Reason for Visit Chief Complaint 6 M FU e order Reason for Visit Essential hypertensi on Nonrheumatic mitral (valve) prolapse Paroxysmal atrial fibrillation SVT (supraventricular tachycardia) Chief Complaint 6 M FU Reason for Visit HLD (hyperlipidemia) Essential hypertension Nonrheumatic mitral (valve) prolapse Paroxysmal atrial fibrillation SVT (supraventricular tachycardia) Chief Complaint ADD 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, 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 Chief Complaint ADD 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 - 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, 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 6 M FU INT LABS Reason for Visit HLD (hyperlipidemia) Essential hypertension Nonrheumatic mitral (valve) prolapse Paroxysmal atrial fibrillation SVT (supraventricular tachycardia) Chief Complaint OVERDUE FOR FU / LAS T SEEN 2021 E-ORDER Reason for Visit HLD (hyperlipidemia) Essential hypertension Paroxysmal atrial fibrillation Chief Complaint Admit Date UPDATED BMD January 26, 2025 2:13 pm Chief Complaint Admit Date UPDATED BMD January 26, 2025 2:13 pm 1 Y FU February 14, 2025 1:48 pm Reason for Visit Admit Date Carotid stenosis, left February 14, 2025 1 :48pm Dizziness February 14, 2025 1:48 pm HLD (hyperlipidemia) February 14, 2025 1:4 8pm Essential hypertension February 14, 2025 1 :48pm Nonrheumatic mitral (valve) prolapse Primitivo 2024 1:48pm Paroxysmal atrial fibrillation February 1:48pm Advance Directives No Advanced Directives Records Found Advance Directive Response Recorded Date/ Time Living Will Yes January 05, 2021 1 1:30am Power of Floor Manager Yes January 05, 2021 11:30am Advance Directive Response Recorded Date/ Time Living Will Yes January 05, 2021 1 0:30am Power of Floor Manager Yes January 05, 2021 10:30am Reason for Referral Specialty Diagnoses / Procedures Referred By Contac t Referred To Contact Diagnoses Blepharospasm Diana Hernandez, SUPERANNUATION FUNDS MANAGER - HSPT TUTOR [address] [place] [address] Referral ID Status Reason Start Date Expiration Date V isits Requested Visits Authorized [id number] Pending Review 01/01/2023 06/30/2023 1 1 Specialty Diagnoses / Procedures Referred By Contac t Referred To Contact Diagnoses Cervical dystonia Garret Sanchez MD [address] [place] [address] Referral ID Status Reason Start Date Expiration Date V isits Requested Visits Authorized [id number] Pending Review 04/09/2023 10/06/2023 1 1 Referral ID Status Reason Start Date Expiration Date V isits Requested Visits Authorized [id number] Pending Review 07/09/2023 01/05/2024 1 1 Specialty Diagnoses / Procedures Referred By Contac t Referred To Contact Diagnoses Cervical dystonia Diana Hernandez, SUPERANNUATION FUNDS MANAGER - HSPT TUTOR [address] [place] [address] Referral ID Status Reason Start Date Expiration Date V isits Requested Visits Authorized [id number] Pending Review 12/03/2023 11/27/2024 1 1 Referral ID Status Reason Start Date Expiration Date V isits Requested Visits Authorized [id number] Pending Review 03/03/2024 02/26/2025 1 1 Referral ID Status Reason Start Date Expiration Date V isits Requested Visits Authorized [id number] Pending Review 10/02/2022 03/31/2023 1 1 Summary [...] Care Provider, Referrin g Provider Active Aftab H Roof AFFILIATE MARKETING MANAGER, AFFILIATE MARKETING MANAGER-C Attending Provider Active Team Status: Inactive Member Role Status Dates Dr. Wei Garsia , DO Primary Care Prov ider, Attending Provider, Referring Provider Active Aftab Patton AFFILIATE MARKETING MANAGER, AFFILIATE MARKETING MANAGER-C Other Provider Active Bridge Worker Relationship Specialty Start Date End Date Wei Garsia [address] [place] [phone] PCP - General 01/19/20 Bridge Worker Relationship Specialty Start Date End Date Wei Garsia [address] [place] [address] PCP - General 01/19/20 Bridge Worker Relationship Specialty Start Date End Date Wei Garsia [address] [place] [address] PCP - General 01/19/20 Bridge Worker Relationship Specialty Start Date End Date Wei Garsia [address] [place] [address] PCP - General 01/19/20 Team Status: Inactive Member Role Status Dates Dr. Wei Garsia DO Primary Care Provider, Attendin g Provider Active Bridge Worker Relationship Specialty Start Date End Date Wei Garsia [address] [place] [phone] PCP - General 01/19/20 Team Status: Inactive Member Role Status Dates Dr. Wei Garsia , DO Primary Care Provider Referrin g Provider Active Dr. Christopher Tavarez MD Attending Provider Active Team Status: Active Member Role Status Dates Dr. Wei Garsia DO Primary Care Provider, Attendin g Provider Active Team Status: Inactive Member Role Status Dates Dr. Wei Garsia DO Primary Care Provider Active Dr. Christopher Tavarez MD Attending Provider, Referring Provider Active Bridge Worker Relationship Specialty Start Date End Date Wei Garsia [address] [place] [phone] PCP - General 01/19/20 Bridge Worker Relationship Specialty Start Date End Date Wei Garsia [address] [place] [phone] PCP - General 01/19/20 Bridge Worker Relationship Specialty Start Date End Date Wei Garsia [address] [place] [phone] PCP - General 01/19/20 Bridge Worker Relationship Specialty Start Date End Date Wei Garsia [address] [place] [phone] PCP - General 01/19/20 Bridge Worker Relationship Specialty Start Date End Date Wei Garsia [address] [place] [phone] PCP - General 01/19/20 Team Status: Active Member Role Status Dates Dr. Wei Garsia DO Primary Care Provider Active Team Status: Inactive Member Role Status Dates Dr. Wei Garsia DO Primary Care Provider Active Start: January 17, 2025 End: January 17, 2025 Dr. Wei Garsia DO Attending Provider Active Start: January 17, 2025 End: January 17, 2025 Team Status: Active Member Role/Relationship Status Dates Dr. Wei Garsia DO Primary Care Provider Active Team Status: Inactive Member Role/Relationship Status Dates Dr. Wei Garsia DO Primary Care Provider Active Start: January 17, 2025 End: January 17, 2025 Dr. Wei Garsia DO Attending Provider Active Start: January 17, 2025 End: January 17, 2025 Team Status: Inactive Member Role/Relationship Status Dates Dr. Wei Garsia DO Primary Care Provider Active Start: January 26, 2025 End: January 26, 2025 Dr. Wei Garsia DO Attending Provider Active Start: January 26, 2025 End: January 26, 2025 Dr. Wei Garsia DO Referring Provider Active Start: January 26, 2025 End: January 26, 2025 Team Status: Inactive Member Role/Relationship Status Dates Dr. Wei Garsia DO Primary Care Provider Active Start: February 14, 2025 End: February 14, 2025 Dr. Wei Garsia DO Referring Provider Active Start: February 14, 2025 End: February 14, 2025 Aftab Patton AFFILIATE MARKETING MANAGER, AFFILIATE MARKETING MANAGER-C Attending Provider Active S tart: February 14, 2025 End: February 14, 2025 Reason for Visit (unrecogniz ed section and content) Reason Comments Procedure Specialty Diagnoses / Procedures Referred By Contac t Referred To Contact Diagnoses Blepharospasm of both eyes Torticollis Garret Sanchez MD [address] [place] [address] [place] [address] Phone: tel: fax: Referral ID Status Reason Start Date Expiration Date V isits Requested Visits Authorized [id number] Pending Review 07/07/2024 07/02/2025 1 1 Reason Comments Procedure Botox- Cervical Dyst onia Specialty Diagnoses / Procedures Referred By Contac t Referred To Contact Diagnoses Blepharospasm Diana Hernandez, SUPERANNUATION FUNDS MANAGER - [employer] [address] [place] [address] [place] [address] Referral ID Status Reason Start Date Expiration Date V isits Requested Visits Authorized [id number] Pending Review 01/01/2023 06/30/2023 1 1 Reason Comments Procedure Botox Specialty Diagnoses / Procedures Referred By Contac t Referred To Contact Diagnoses Cervical dystonia Garret Sanchez MD [address] [place] [address] [place] [address] Referral ID Status Reason Start Date Expiration Date V isits Requested Visits Authorized [id number] Pending Review 04/09/2023 10/06/2023 1 1 Referral ID Status Reason Start Date Expiration Date V isits Requested Visits Authorized [id number] Pending Review 07/09/2023 01/05/2024 1 1 Specialty Diagnoses / Procedures Referred By Contac t Referred To Contact Diagnoses Cervical dystonia Diana Hernandez, SUPERANNUATION FUNDS MANAGER - HSPT TUTOR [address] [place] [address] Referral ID Status Reason Start Date Expiration Date V isits Requested Visits Authorized [id number] Pending Review 12/03/2023 11/27/2024 1 1 Reason Onset Date Comments Error (VOID this visit) 02/16/2024 Referral ID Status Reason Start Date Expiration Date V isits Requested Visits Authorized [id number] Pending Review 03/03/2024 02/26/2025 1 1 Reason Comments Procedure botox Referral ID Status Reason Start Date Expiration Date V isits Requested Visits Authorized [id number] Pending Review 10/02/2022 03/31/2023 1 1 Specialty Diagnoses / Procedures Referred By Contac t Referred To Contact Diagnoses Blepharospasm of both eyes Diana Hernandez, SUPERANNUATION FUNDS MANAGER - HSPT TUTOR [address] [place] [address] Phone: tel: fax: Referral ID Status Reason Start Date Expiration Date V isits Requested Visits Authorized [id number] Pending Review 10/13/2024 10/08/2025 1 1 Specialty Diagnoses / Procedures Referred By Contac t Referred To Contact Diagnoses Blepharospasm of both eyes Torticollis Cervical dystonia Diana Hernandez, SUPERANNUATION FUNDS MANAGER - HSPT TUTOR [address] [place] [address] Phone: tel: fax: Referral ID Status Reason Start Date Expiration Date V isits Requested Visits Authorized [id number] Pending Review 01/12/2025 01/07/2026 1 1 INFORMATION SOURCE (unrecogn ized section and content) DATE CREATED AUTHOR 01/14/2025 [facility] [employer] [facility] DATE CREATED AUTHOR AUTHOR'S ORGANIZ ATION 03/21/[address] [facility] FOR RECORDS PERTAINING TO PATIENTS WHO [...] BE BASED ON THE PRIMARY CLINICAL RECORDS. [facility] [employer], [facility]. provides no warranty or guarantee of the accuracy or completeness of information in this document.
--- NOTE | 2025-04-10 12:24 | EX.ED.DYSGE1 ---
HPI History of Present Illness Chief Complaint: Syncope Informant: patient Narrative Narrative: Patient is an 89-year-old female with history of TIA, carotid stenosis on the left, hyperlipidemia, approximately show fibrillation (on Eliquis) and hypertension presenting with paresthesias to her right upper extremity as well as a near syncopal episode. Patient states while when she woke up this morning she is was not feeling quite right. She notes that she could not remember where she placed things and was having a hard time getting ready for [facility] because of this. When she started to walk to the garage she became lightheaded, had blurry vision and folic she was going to pass out. Afterwards she developed a mild headache. She also notes that started having tingling to her right arm specifically to her hand. She knew she could not drive to [place] at this point and her daughter ultimately brought her to the emergency room. Her daughter last saw her and everything was normal at 2 PM. Patient does note that over the past week or so she has been having intermittent tingling in her right hand. Daughter states that her speech is not slurred but slightly slower than normal. Patient states is unusual for her to have a headache. She denies any recent falls or head injuries. No other complaints at this time. Denies associated chest pain, shortness of breath or difficulty breathing. Not reporting recent leg swelling. [facility] Medical History Pneumonia COVID-19 UTI (urinary tract infection) SVT (supraventricular tachycardia) Torticollis Blepharospasm GERD (gastroesophageal reflux disease) Nonrheumatic mitral (valve) prolapse Essential hypertension Ventricular ectopy Paroxysmal atrial fibrillation Home Medications ?Medication ?Instructions ?Recorded ?Last Taken ?Type melatonin 10 mg capsule 10 mg PO QHS 01/15/17 08/07/18 History digoxin 125 mcg (0.125 mg) tablet 125 mcg PO DAILY #90 tabs 03/05/19 Unknown Rx cholecalciferol (vitamin D3) 25 4,000 unit PO DAILY 01/31/20 Unknown History mcg (1,000 unit) capsule apixaban 2.5 mg tablet (Eliquis) 2.5 mg PO BID #60 tabs 01/06/21 Unknown Rx atorvastatin 10 mg tablet 10 mg PO QHS #30 tabs 01/06/21 Unknown Rx metoprolol succinate 50 mg 50 mg PO DAILY 11/07/21 Unknown History tablet,extended release 24 hr acetaminophen 500 mg tablet 1,000 mg PO QHS PRN fever or pain 02/14/25 Unknown History magnesium 250 mg tablet 500 mg PO DAILY sleep 02/14/25 Unknown History Allergy/AdvReac Type Severity Reaction Status Date / Time bee venom protein (honey bee) Allergy Anaphylaxis Verified 04/10/25 12:04 latex Allergy Rash Verified 04/10/25 12:04 Penicillins Allergy Rash Verified 04/10/25 12:04 Family History Father CHF (congestive heart failure) Surgical History History of knee surgery History of total hysterectomy History of tonsillectomy and adenoidectomy History of lumpectomy of left breast Social History Smoking Status: Never smoker alcohol intake: never substance use type: does not use caffeine: Yes eating out: rarely or never ROS ROS ED Constitutional Constitutional ED: Reports other Details: near syncopal episode ; Denies chills or fever(s) Eyes Eyes: Denies change in vision Cardiovascular Cardiovascular: Denies chest pain Respiratory/Chest Respiratory/Chest: Denies cough or dyspnea Gastrointestinal Gastrointestinal: Denies abdominal pain, nausea or vomiting Musculoskeletal Musculoskeletal: Denies arthralgias or myalgias Integumentary Denies rash Neurologic Neurologic: Reports headache(s) and paresthesias RUE (hand) Hematologic/Lymphatic Hematologic/Lymphatic: Reports easy bleeding, easy bruising and other Details: ON eliquis EXAM Physical Exam Const Vital Signs: 04/10/25 12:04 04/10/25 12:19 04/10/25 12:40 Temperature 98.1 F Temperature Source Temporal Pulse Rate 65 65 Respiratory Rate 14 14 Respiratory Pattern Normal Blood Pressure 182/84 H 182/84 H Blood Pressure Mean 116 116 Pulse Ox 95 95 Oxygen Delivery Method Room Air Room Air 04/10/25 13:03 Temperature Temperature Source Pulse Rate 69 Respiratory Rate 14 Respiratory Pattern Blood Pressure 152/111 H Blood Pressure Mean 124 Pulse Ox 100 Oxygen Delivery Method Positive well nourished and well developed General Appearance ED: well developed and NAD HEENT Reports moist mucous membranes Negative for trauma Eyes PERRL and EOMs intact bilaterally Neck supple and no JVD Chest Wall inspection of chest normal and palpation of chest normal Resp normal respiratory effort and clear to auscultation bilaterally Cardio regular rate and regular rhythm GI normal to inspection, nondistended, normoactive bowel sounds and non-tender Extremity normal to inspection General Extremety ED: Negative for edema or tenderness General Extremity: Negative for edema Neuro oriented x3 Neuro Narrative: NIH equals 2?see separate NIH documentation. Acutely patient has some mild paresthesias of her right hand. Sensorium / Orientation: alert Motor Exam: general weakness Skin no rashes or lesions noted and no wounds MDM MDM MDM Narrative Medical decision making narrative: Patient is evaluated for episode of near syncope and paresthesias of the right hand. Stroke alert was called. Patient not TNK candidate as she has non-debilitating symptoms and is on Eliquis as well as unclear last known well. Stroke workup does not show any acute process. She does have about 60 degree stenosis of the left proximal internal carotid artery however she has a known history of carotid stenosis on the left. I do not think there is any acute critical stenosis and her presentation is not consistent with an LVO. Cardiac workup also obtained given his near syncopal episode. Her initial high-sensitivity troponin is 28. She does not have any arrhythmia on her EKG. She has not complained of any chest pain. Due to her vague confusion and near syncopal episode I also obtained a urinalysis for concern of possible UTI. She does not have a leukocytosis but urinalysis is highly consistent with UTI with positive nitrates, 1+ bacteria and 10-25 white blood cells with 500 leukocyte esterase. Patient is given IV Rocephin and urine culture sent. She is hypertensive in the emergency room but will allow for permissive hypertension given that she still having paresthesias of her right hand. Case was discussed with teleneurology, Dr. Aguilar, who was unable to be met but agreed with my assessment of no TNK and felt the patient would be stable to admit for further stroke workup at our facility. Patient will be admitted for further neurologic evaluation as well as treatment of UTI and workup for this near syncopal episode. Patient is agreeable with plan of care. Case discussed with hospitalist, Dr. Chen Lab Data Attestation: I reviewed the patient's lab results. Labs: Laboratory Results - last 24 hr 04/10/25 04/10/25 04/10/25 12:10 12:15 12:25 WBC 7.7 RBC 4.47 Hgb 12.6 Hct 39.6 MCV 88.6 MCH 28.2 MCHC 31.8 L RDW Std Deviation 45.7 H RDW Coeff of Casi 14.0 Plt Count 234 MPV 9.5 Immature Gran % (Auto) 0.400 Neut % (Auto) 68.5 Lymph % (Auto) 20.7 [place] % (Auto) 8.7 Eos % (Auto) 1.0 Baso % (Auto) 0.7 Absolute Neuts (auto) 5.3 Absolute Lymphs (auto) 1.59 Nucleated RBC % 0 PT 13.9 INR 1.1 APTT 28.8 Sodium 137 Potassium 4.3 Chloride 102 Carbon Dioxide 24.9 Anion Gap 10 BUN 27 H Creatinine 1.09 Estim Creat Clear Calc 37.64 L Est GFR (MDRD) Non-Af 49 L BUN/Creatinine Ratio 25.1 H Glucose 123 H Calcium 9.4 Troponin T High Sens 28 H Urine Color Urine Clarity Urine pH Ur Specific [place] Urine Protein Urine Glucose (UA) Urine Ketones Urine Occult Blood Urine Nitrite Urine Bilirubin Urine Urobilinogen Ur Leukocyte Esterase Urine RBC Urine WBC Ur Squamous Epith Cells Urine Bacteria Urine Mucus POC Glucose 115 H 04/10/25 13:25 WBC RBC Hgb Hct MCV MCH MCHC RDW Std Deviation RDW Coeff of Casi Plt Count MPV Immature Gran % (Auto) Neut % (Auto) Lymph % (Auto) [place] % (Auto) Eos % (Auto) Baso % (Auto) Absolute Neuts (auto) Absolute Lymphs (auto) Nucleated RBC % PT INR APTT Sodium Potassium Chloride Carbon Dioxide Anion Gap BUN Creatinine Estim Creat Clear Calc Est GFR (MDRD) Non-Af BUN/Creatinine Ratio Glucose Calcium Troponin T High Sens Urine Color Yellow Urine Clarity Sl. Cloudy Urine pH 7.0 Ur Specific [place] 1.010 Urine Protein 30 H Urine Glucose (UA) Normal Urine Ketones Negative Urine Occult Blood 10 H Urine Nitrite Positive H Urine Bilirubin Negative Urine Urobilinogen Normal Ur Leukocyte Esterase 500 H Urine RBC 0 SEEN Urine WBC 10-25 SEEN Ur Squamous Epith Cells 0-5 SEEN Urine Bacteria 1+ Urine Mucus 0 SEEN POC Glucose Radiography Diagnostic Testing: Clinical Impression(s) from Imaging Studies Brain CT 04/10/25 12:17 IMPRESSION: Negative for acute intracranial pathology. Findings discussed with referring clinician at the time of the exam. Reading Location: [facility] Head/Neck CTA 04/10/25 12:17 IMPRESSION: Intracranial small-vessel disease and atrophy as above. Negative CTA of the head. Negative for large vessel occlusion. Vascular disease most prominent in the left proximal internal carotid artery leading to 60% stenosis Remainder of the CTA neck negative. Findings discussed with referring clinician at the time of the exam. Reading Location: [facility] Rhythm Strip Rhythm Strip: Sinus Rhythm Rate: 71 Ectopy: None EKG Initial EKG: Attestation: I personally reviewed and interpreted this EKG as follows: Interpretation: Sinus Rhythm Comments: normal sinus rhythm at a rate of 64 bpm Normal axis Normal intervals Subtle T wave changes in leads I, aVL, V5 through V6 as well as lead II. No significant change compared to prior EKGs Management Discussion w/another healthcare provider: Hospitalist, Credit Risk Specialist (Neurology) and Radiologist Critical Care Time Critical Care Time: Yes Critical care time (excluding procedures): 30-74 minutes (32), Discussing w/Patient &/or Family/Bottom Stainer, Discussing w/Consultants and Arranging Admission or Transfer Discharge Plan Triage Chief Complaint: Syncope ED Provider: Leesa Grimm Dx/Rx/DC Orders Clinical Impression: TIA (transient ischemic attack), Carotid stenosis, left, Essential hypertension, Paresthesias in right hand, Near syncope, Acute UTI, Current use of mcfp anticoagulation Primary Care Provider: Antonio Garsia Disposition Disposition: Acute Care Hospital [facility] NIHSS NIHSS 1a. Level of Consciousness: 0 - Alert; keenly responsive 1b. LOC Questions: 0 - Answers BOTH questions correctly 1c. LOC Commands: 0 - Performs BOTH tasks correctly 2. Best Gaze: 0 - Normal 4. Facial Palsy: 0 - Normal symmetrical movements 5a. Left Arm: 1 - Drift; arm drifts downward but doesn?t hit the bed (Chronic for 3 years associated with shoulder injury) 5b. Right Arm: 0 - No drift; arm holds 90 (or 45) degrees for full 10 seconds 6a. Left Le - No drift; leg holds 30-degree position for full 5 seconds 6b. Right Le - No drift; leg holds 30-degree position for full 5 seconds 7. Limb Ataxia: 0 - Absent 8. Sensory: 1 - [id number] sensory loss; (Subjective paresthesias to the right hand) 9. Best Language: 0 - No aphasia; normal 10. Dysarthria: 0 - Normal 11. Extinction and Inattention: 0 - No abnormality Total: 2 Stroke Questions Stroke Team Activated: Yes a.Reviewed Inclusion/Exclusion criteria: Yes (Not TNK candidate-debility of symptoms and patient anticoagulated on Eliqui)
[2025-04-10 12:45] LABS: Hematocrit 39.6 % (37-47); Hemoglobin 12.6 g/dL (12.0-15.0); Immature Granulocytes Count 0.030 X10^3/uL (0.0-0.0); Mean Corp Hgb Conc 31.8 g/dL (32-36); Mean Corpuscular Volume 88.6 fL (81-99); Mean Platelet Vol. 9.5 fl (6.2-12.0); NRBC Flagged by Analyzer 0 % (0-5); Platelet Count 234 K/mm3 (150-450); RBC Distribution Width CV 14.0 % (11.6-14.6); RBC Distribution Width SD 45.7 fl (35.1-43.9); Red Blood Count 4.47 M/mm3 (4.2-5.4); White Blood Count 7.7 K/mm3 (4.4-11.0)
[2025-04-10 12:51] LABS: Partial Thromboplast Time 28.8 Seconds (24.1-36.2); Prothrombin Time (Protime)PT. 13.9 SECONDS (11.7-14.9)
[2025-04-10 12:53] LABS: Anion Gap 10 (5-15); BUN 27 mg/dL (4-19); BUN/Creat Ratio 25.1 RATIO (10-20); Calcium,Total 9.4 mg/dL (7.6-11.0); Carbon Dioxide 24.9 mmol/L (21.0-32.0); Chloride 102 mmol/L (98-108); Estimated Creatinine Clearance 37.64 ml/min (50-250); Glucose 123 mg/dL (70-99); Potassium 4.3 mmol/L (3.3-5.1); Troponin T High Sensitivity 28 ng/L (<=14)
--- NOTE | 2025-04-10 13:11 | CM.ED ---
Social Work Date of referral: 04/10/25 Reason for referral: Stroke Alert was activated Upkeep Worker responded to the Stroke Alert and was able to walk patient's daughter to the room while patient was taken by staff for assessments. Patient's daughter was slightly tearful, stating that her father just a few months ago of a stroke, here at [facility] and it was believed to be in the same room. Upkeep Worker offered comfort and support which patient expressed appreciation for. (12:17) tannery worker met with patient and patient's daughter again to check on them and to see if either needed anything and both stated they were doing good and denied any current needs. (13:11) Cherelle Murray, CLOTH PATTERN MAKER, TURNING SANDER OPERATOR
[2025-04-10 13:36] LABS: Color, Urine Yellow (Yellow); Glucose, Dipstick Normal (Normal); Ketone-Dipstick Negative (Negative); Leukocyte Esterase-Dipstick 500 /ul (Negative); Mucous, Urine 0 SEEN /hpf (<or=2+); Nitrite-Dipstick Positive (Negative); Occult Blood-Urine 10 /ul (Negative); Protein-Dipstick 30 mg/dl (Negative); Red Blood Cells-Urine 0 SEEN /hpf (0-5); Specific Gravity, Urine 1.010 (1.002-1.030); Urine Bilirubin Dipstick Negative (Negative)
[2025-04-10 13:46] LABS: Squamous Epithelial Cells - UA 0-5 SEEN /hpf (5-10)
--- NOTE | 2025-04-10 13:57 | PCM.HP.STD ---
HPI - General General Date of Admission: 04/10/25 Date of Service: 04/10/25 Chief Complaint: syncope HPI Narrative JORDY ERAZO, is a 89 F with a PMH as outlined was admitted via the ED on 04/10/2025 with a complaint of near syncope and intermittent parasthesia over her right upper extremity. She also said she was having difficulty getting ready for [facility] today and felt she really couldnt remember things. She said for the past few days she had been noting that numbness and tingling in her right arm with some weakness and this has persisted. She said after she felt weak and could not really get ready for [facility] she fell into a chair and promptly passed out. She denied any antecedent fever, chills, nausea vomiting or any urinary symptoms. Review of systems was otherwise negative. She denies any history of stroke. Her daughter noted that her mother did not come to [facility] and so went to find her and found patient in her chair weak but responsive. Daughter noticed that her speech was slightly slow but not slurred. Her of a stroke 9 months ago and she was very worried about a stroke. Vitals in the ED were BP of 152/111, UT of 69, RR of 14 and oxygen sats of 99% on room air. CBC showed Hb of 12.6, wbc of 7.7, platelets of 234. INR was 1.1. Chemistry showed sodium of 137 potassium of 4.3 and bicarb of 24.9. Creatinine was 1.09. Urinalysis showed 1+ bacteria and WBC of 20-25 per high-power field. Urine nitrite was positive. CT of the brain was negative for any acute intracranial pathology. CT of the head and neck showed intracranial small vessel disease and atrophy as above and negative CT of the head was negative for any large vessel occlusion and she had vascular disease most prominent in the left proximal internal carotid artery leading up to 60% stenosis. She has been admitted to be managed for UTI as well as strokelike symptoms to rule out a stroke. [facility] Medical History Pneumonia COVID-19 UTI (urinary tract infection) SVT (supraventricular tachycardia) Torticollis Blepharospasm GERD (gastroesophageal reflux disease) Nonrheumatic mitral (valve) prolapse Essential hypertension Ventricular ectopy Paroxysmal atrial fibrillation Home Medications ?Medication ?Instructions ?Recorded ?Last Taken ?Type melatonin 10 mg capsule 10 mg PO QHS 01/15/17 08/07/18 History digoxin 125 mcg (0.125 mg) tablet 125 mcg PO DAILY #90 tabs 03/05/19 Unknown Rx cholecalciferol (vitamin D3) 25 4,000 unit PO DAILY 01/31/20 Unknown History mcg (1,000 unit) capsule apixaban 2.5 mg tablet (Eliquis) 2.5 mg PO BID #60 tabs 01/06/21 Unknown Rx atorvastatin 10 mg tablet 10 mg PO QHS #30 tabs 01/06/21 Unknown Rx metoprolol succinate 50 mg 50 mg PO DAILY 11/07/21 Unknown History tablet,extended release 24 hr acetaminophen 500 mg tablet 1,000 mg PO QHS PRN fever or pain 02/14/25 Unknown History magnesium 250 mg tablet 500 mg PO DAILY sleep 02/14/25 Unknown History Allergy/AdvReac Type Severity Reaction Status Date / Time bee venom protein (honey bee) Allergy Anaphylaxis Verified 04/10/25 12:04 latex Allergy Rash Verified 04/10/25 12:04 Penicillins Allergy Rash Verified 04/10/25 12:04 Family History Father CHF (congestive heart failure) Surgical History History of knee surgery History of total hysterectomy History of tonsillectomy and adenoidectomy History of lumpectomy of left breast Social History Smoking Status: Never smoker alcohol intake: never substance use type: does not use caffeine: Yes eating out: rarely or never ROS Constitutional Constitutional: Reports fatigue, malaise and weakness; Denies anorexia, chills or fever(s) Eyes Eyes: Denies change in vision ENT HEENT: Denies headache(s) Cardiovascular Cardiovascular: Reports lightheadedness and syncope; Denies chest pain, dyspnea on exertion, edema, orthopnea, palpitations or rapid heart rate Respiratory/Chest Respiratory/Chest: Denies cough, dyspnea, shortness of breath at rest or shortness of breath with exertion Gastrointestinal Gastrointestinal: Denies abdominal pain, constipation, diarrhea, nausea or vomiting Genitourinary Genitourinary: Denies dysuria Musculoskeletal Musculoskeletal: Denies arthralgias Neurologic Neurologic: Reports confusion, dizziness, focal weakness and paresthesias; Denies headache(s), numbness, seizures, syncope, tingling or tremor(s) Psychiatric Psychiatric: Denies anxiety Vital Signs Vital Signs Vital Signs: 04/10/25 12:04 04/10/25 12:19 04/10/25 12:40 Temperature 98.1 F Temperature Source Temporal Pulse Rate 65 65 Respiratory Rate 14 14 Respiratory Pattern Normal Blood Pressure 182/84 H 182/84 H Blood Pressure Mean 116 116 Pulse Ox 95 95 Oxygen Delivery Method Room Air Room Air 04/10/25 13:03 Temperature Temperature Source Pulse Rate 69 Respiratory Rate 14 Respiratory Pattern Blood Pressure 152/111 H Blood Pressure Mean 124 Pulse Ox 100 Oxygen Delivery Method Weight Weight: 165 lb 5.547 oz Body Mass Index (BMI) 26.6 Physical Exam Const alert, oriented x3 and no apparent distress Constitutional Narrative: frail General Appearance: cooperative HEENT normocephalic, hearing grossly normal bilaterally, moist oral mucous membranes and oropharynx normal Mouth: oral and palatal mucosa normal Eyes EOMs intact bilaterally and conjunctivae normal Neck supple and no JVD Resp normal respiratory effort, no retractions, no use of accessory muscles and clear to auscultation bilaterally Cardio regular rate, regular rhythm, S1 normal heart sound, S2 normal heart sound and no murmurs GI normal to inspection, nondistended, normoactive bowel sounds, soft to palpation, non-tender and non-distended Extremity normal to inspection, full ROM and no clubbing, cyanosis or edema Neuro oriented x3, CN's II-XII intact bilaterally and moves all extremities Neuro Narrative: has mild weakness in RUE. Minimal parasthesia. Has some involuntary tremors of her head which appear to be chronic. Sensorium / Orientation: awake, alert, oriented to person, oriented to place and oriented to time Psych affect normal Results Lab / Micro Data 04/10/25 12:25 04/10/25 12:15 Labs: Laboratory Results - last 24 hr 04/10/25 12:10: POC Glucose 115 H 04/10/25 12:15: Sodium 137, Potassium 4.3, Chloride 102, Carbon Dioxide 24.9, Anion Gap 10, BUN 27 H, Creatinine 1.09, Estim Creat Clear Calc 37.64 L, Est GFR (MDRD) Non-Af 49 L, BUN/Creatinine Ratio 25.1 H, Glucose 123 H, Calcium 9.4, Troponin T High Sens 28 H 04/10/25 12:25: WBC 7.7, RBC 4.47, Hgb 12.6, Hct 39.6, MCV 88.6, MCH 28.2, MCHC 31.8 L, RDW Std Deviation 45.7 H, RDW Coeff of Casi 14.0, Plt Count 234, MPV 9.5, Immature Gran % (Auto) 0.400, Neut % (Auto) 68.5, Lymph % (Auto) 20.7, [place] % (Auto) 8.7, Eos % (Auto) 1.0, Baso % (Auto) 0.7, Absolute Neuts (auto) 5.3, Absolute Lymphs (auto) 1.59, Nucleated RBC % 0, PT 13.9, INR 1.1, APTT 28.8 04/10/25 13:25: Urine Color Yellow, Urine Clarity Sl. Cloudy, Urine pH 7.0, Ur Specific [place] 1.010, Urine Protein 30 H, Urine Glucose (UA) Normal, Urine Ketones Negative, Urine Occult Blood 10 H, Urine Nitrite Positive H, Urine Bilirubin Negative, Urine Urobilinogen Normal, Ur Leukocyte Esterase 500 H, Urine RBC 0 SEEN, Urine WBC 10-25 SEEN, Ur Squamous Epith Cells 0-5 SEEN, Urine Bacteria 1+, Urine Mucus 0 SEEN Imaging Radiology Impression Brain CT 04/10/25 12:17 IMPRESSION: Negative for acute intracranial pathology. Findings discussed with referring clinician at the time of the exam. Reading Location: [facility] Head/Neck CTA 04/10/25 12:17 IMPRESSION: Intracranial small-vessel disease and atrophy as above. Negative CTA of the head. Negative for large vessel occlusion. Vascular disease most prominent in the left proximal internal carotid artery leading to 60% stenosis Remainder of the CTA neck negative. Findings discussed with referring clinician at the time of the exam. Reading Location: [facility] Assessment & Plan Assessment/Plan (1) Dizziness: (2) TIA (transient ischemic attack): PLAN: Plan #Strokelike symptoms Admit to PCU. Admitted with a complaint of numbness and tingling of her right arm as well as some episode of forgetfulness and then near syncope CT of the brain showed no acute intracranial pathology. CTA of the head and neck showed vascular disease most prominent in the left proximal internal carotid artery leading to 60% stenosis admit to PCU get MRI of the brain and 2D echo hold BP meds to allow for permissive hypertension. already on eliquis for afib, will continue continue high intensity statin. get carotid USG to further evaluate carotid arteries IV labetalol prn. MOnitor NIHSS #Atrial fibrillation: on metoprolol. WIll hold to allow for permissive hypertension. on eliquis. #UTI: urinalysis showed evidence of UTI. Start IV ceftriaxone. Get urine cultures. # Hyperlipidemia: On statin DVT prophylaxis: Already on Eliquis CODE STATUS:DNRCCA no intubation Patient and daughter counseled extensively about different types of CODE STATUS including full code, DNR CCA and DNR CCA. Patient elects to be DNRCCA no intubation. Total wigt-[id number] time 16 minutes. Charges/Coding Visit Charges Inpatient E&M: 38133 Init Hosp L2 Procedures Hospitalists Procedures: 76411 Advncd Care Plan 30 Min
--- OUTSIDE RECORDS SUMMARY | 2025-04-10 14:29 | XMS RPT_ITS | CCD ---
Author Organization [facility] Care Team Providers Care Computer Repair Technician Name Role Phone Dr. Wei Garsia Primary Care Provider [phone] Dr. Wei Garsia Referring Provider Pooja MANAGER PROGRESSIVE CARE, NATALIE Oakes Attending Provider Dr. Wei Garsia Primary Care Provider [phone] Dr. Wei Garsia Referring Provider Dr. Shon Jordan Attending Provider Dr. Wei Garsia Primary Care Provider [phone] Dr. Wei Garsia Referring Provider Pooja MANAGER PROGRESSIVE CARE, NATALIE Oakes Attending Provider Wei Garsia Primary Care Provider Wei Garsia Primary Care Provider Dr. Wei Garsia Primary Care Provider [phone] Dr. Wei Garsia Referring Provider Dr. Christopher [...] Dr. Wei Garsia DO Attending Provider [phone] Dr. Wei Garsia DO Referring Provider [phone] Roof MANAGER PROGRESSIVE CARE-CAftab Attending Provider Wei Garsia Primary Care Unavailable Roof MANAGER PROGRESSIVE CAREAftab Attending Unavailable Wei Garsia Referring Unavailable Wei Garsia Primary Care Unavailable Wei Garsia Attending Unavailable Wei Garsia Referring Unavailable Wei Garsia Primary Care Unavailable Wei Garsia Attending Unavailable Wei Garsia Primary Care Unavailable Wei Garisa Attending Unavailable Wei Garsia Referring Unavailable Max Jacobs Attending Unavailable Wei Garsia Primary Care Unavailable Roof MANAGER PROGRESSIVE CAREAftab Attending Unavailable Roof MANAGER PROGRESSIVE CAREAftab Referring Unavailable Wei Garisa Primary Care Unavailable Allergies Allergy Classification Reported Allergen(s) Allergy Type Date of Onset Reaction(s) Facility (11 sources) Latex Allergy to substance 11-07-2021 [facility] (20 sources) Penicillins; Translations: [Penicillins] Allergy to substance 11-07-2021 Rash [facility] (13 sources) bee venom protein (honey bee) Allergy to substance 11-07-2021 Anaphylaxis [facility] Comment on above: also wasps (1 source) Latex Drug allergy (disorder) 02-14-2025 [facility] Repository (1 source) bee venom protein (honey bee) Drug allergy (disorder) 02-14-2025 [facility] Repository Medications Current Medications Medication [...] Start: 02-14-2025 take 2 tablets by mo [facility] once daily Magnesium 250 mg tablet Active [...] every week ergocalciferol (Vitamin D-2) 1.25 MG (85133 UT) capsule Take 1.25 mg by mouth [...] 06, 2021 12:00am March 28, 2024 11:20am [place] 1-Utl-Wbn-Fish Oil (8 sources) Start: 08-09-2018 End: 04-28-2019 take 500 mg by mouth once daily [place] 9-Dpi-Saw-Fish Oil Discontinued 500 MG PO DAILY August 09, 2018 1:40pm April 28, 2019 1:47pm Start: 08-09-2018 End: 04-28-2019 take 500 mg by mouth once daily [place] 6-Yvw-Kit-Fish Oil Discontinued 500 MG PO DAILY August 09, 2018 1:00am April 28, 2019 1:47pm Start: 08-09-2018 End: 04-28-2019 take 500 mg by mouth once daily [place] 4-Twy-Nni-Fish Oil Discontinued 500 MG PO DAILY August 09, 2018 12:00am April 28, 2019 12:47pm [place] 6-Fph-Nsx-Fish Oil 500 MG capsule,delayed release(DR/EC) (3 sources) Start: 08-09-2018 End: 04-28-2019 take 1 capsule by mouth once daily [place] 2-Gcj-Dtj-Fish Oil 500 MG capsule,delayed release(DR/EC) Discontinued 500 [...] Facility Cardiology Visit Reporton Cardiology Visit Report [facility] [address] [place] [address] OFFICE VISIT Date of Service: 02/14/25 MR#: [id number] Acct: [id number] Name: JORDY FOSTER Rep #: [id number] : 1935 Provider: NATALIE cain Age/Sex: 89/F Location: [facility] Status: Signed HPI HPI History of Present Illness Details: This is an 89-year-old white female who presents today for outpatient cardiovascular outpatient follow-up with a history of underlying paroxysmal atrial fibrillation/suprav entricular tachycardia, PVCs, mitral valve prolapse, possible diastolic dysfunction, hyperlipidemia. Patient was evaluated at [facility] in January 2021 for questionable TIA. She [...] NIBP Intake Visit Reasons: 1 Y FU Manager Of Medical Required: No Is patient in pain?: No [...] healthy appearing, (more content not included)... Normal [facility] Bone density reportOrdered B y: Sy Freeman on 01-27-2025 Study report Skeletal system DXA [facility] Imaging Services [address] [place], [place] [address] Dexa Bone Density Study MR#: [id number] Acct: [id number] Name: JORDY FOSTER Rep #: [id number] : 1935 F 89 From: Chuck Freeman MD PCP: Dr. Wei Garsia, Status: REG CLI Study:Dexa Bone Density Study Date of Exam: 01/26/25 Exam# [id number] Ordering Dr: Wei Garsia DO PROCEDURE: DEXA [...] Recommend follow-up as clinically warranted. Reading Location: [facility] CC: Dr. Wei Garsia DO ~ Maintenance Planner: Signed [facility] Dexa Bone Density Studyon Dexa Bone Density Study [facility] Imaging Services [address] [place], [place] [address] Dexa Bone Density Study MR#: [id number] Acct: [id number] Name: JORDY FOSTER Rep #: [id number] : 1935 F 89 From: Sy gonzalez MD PCP: Dr. Wei Garsia DO Status: REG CLI Study: Dexa Bone Density Study Date of Exam: 01/26/25 Exam# [id number] Ordering Dr: Wei Garsia DO PROCEDURE: DEXA [...] Recommend follow-up as clinically warranted. Reading Location: [facility] CC: Dr. Wei Garsia, Maintenance Planner: Signed Normal [facility] Comprehensive Metabolic Prof marvel 01-18-2025 Albumin [Mass/Vol] 4.3 g/dL Normal 3.4-4.8 [facility] Comment on above: Performed By: #### L 100.0100, L500.4050, L506.1001, L500.4100, L501.7510, L501.9985 ####[facility] [address] [place], [address] Albumin/Globulin [Mass ratio] 1.7 {ratio} Normal 0.9-2.4 [facility] Comment on above: Performed By: #### L 100.0100, L500.4050, L506.1001, L500.4100, L501.7510, L501.9985 ####[facility] [address] [place], [address] ALK PHOS 114 U/L High 35-104 [facility] Comment on above: Performed By: #### L 100.0100, L500.4050, L506.1001, L500.4100, L501.7510, L501.9985 ####[facility] [address] [place], [address] ALT [Catalytic activity/Vol] 18 U/L Normal <=34 [facility] Comment on above: Performed By: #### L 100.0100, L500.4050, L506.1001, L500.4100, L501.7510, L501.9985 ####[facility] [address] [place], [address] AST [Catalytic activity/Vol] 24 U/L Normal <=31 [facility] Comment on above: Performed By: #### L 100.0100, L500.4050, L506.1001, L500.4100, L501.7510, L501.9985 ####[facility] [address] [place], [address] Bilirubin [Mass/Vol] 0.51 mg/dL Normal 0.00-1.30 [facility] Comment on above: Performed By: #### L 100.0100, L500.4050, L506.1001, L500.4100, L501.7510, L501.9985 ####[facility] [address] [place], [address] BUN/CRE 24.1 RATIO High 10-20 [facility] Comment on above: Performed By: #### L 100.0100, L500.4050, L506.1001, L500.4100, L501.7510, L501.9985 ####[facility] [address] [place], [address] Calcium [Mass/Vol] 9.9 mg/dL Normal 7.6-11.0 [facility] Comment on above: Performed By: #### L 100.0100, L500.4050, L506.1001, L500.4100, L501.7510, L501.9985 ####[facility] [address] [place], [address] Chloride [Moles/Vol] 104 mmol/L Normal 98-108 [facility] Comment on above: Performed By: #### L 100.0100, L500.4050, L506.1001, L500.4100, L501.7510, L501.9985 ####[facility] [address] [place], [address] CO2 [Moles/Vol] 23.8 mmol/L Normal 21.0-32.0 [facility] Comment on above: Performed By: #### L 100.0100, L500.4050, L506.1001, L500.4100, L501.7510, L501.9985 ####[facility] [address] [place], [address] Creatinine [Mass/Vol] 1.13 mg/dL Normal 0.70-1.20 [facility] Comment on above: Performed By: #### L 100.0100, L500.4050, L506.1001, L500.4100, L501.7510, L501.9985 ####[facility] [address] [place], [address] GAP 12 Normal 5-15 [facility] Comment on above: Performed By: #### L 100.0100, L500.4050, L506.1001, L500.4100, L501.7510, L501.9985 ####[facility] [address] [place], [address] GFR/1.73 sq M.predicted among non-blacks MDRD (S/P/Bld) [Vol rate/Area] 47 mL/min/{1.73_m2} Low >60 [facility] Comment on above: Result Comment: mL/m in/1.73m2 CKD-EPI Creatinine Equation (2020) Performed By: #### L 100.0100, L500.4050, L506.1001, L500.4100, L501.7510, L501.9985 ####[facility] [address] [place], [address] Globulin (S) [Mass/Vol] 2.5 g/dL Normal 2.2-4.2 [facility] Comment on above: Performed By: #### L 100.0100, L500.4050, L506.1001, L500.4100, L501.7510, L501.9985 ####[facility] [address] [place], [address] Glucose [Mass/Vol] 110 mg/dL High 70-99 [facility] Comment on above: Performed By: #### L 100.0100, L500.4050, L506.1001, L500.4100, L501.7510, L501.9985 ####[facility] [address] [place], [address] Potassium [Moles/Vol] 4.2 mmol/L Normal 3.3-5.1 [facility] Comment on above: Performed By: #### L 100.0100, L500.4050, L506.1001, L500.4100, L501.7510, L501.9985 ####[facility] [address] [place], [address] Sodium [Moles/Vol] 141 mmol/L Normal 133-145 [facility] Comment on above: Performed By: #### L 100.0100, L500.4050, L506.1001, L500.4100, L501.7510, L501.9985 ####[facility] [address] [place], [address] T PROT 6.7 g/dL Normal 5.9-8.4 [facility] Comment on above: Performed By: #### L 100.0100, L500.4050, L506.1001, L500.4100, L501.7510, L501.9985 ####[facility] [address] [place], [address] Urea nitrogen [Mass/Vol] 27 mg/dL High 4-19 [facility] Comment on above: Performed By: #### L 100.0100, L500.4050, L506.1001, L500.4100, L501.7510, L501.9985 ####[facility] [address] [place], [address] Lipid Profileon 01-18-2025 CHOL:HDL 2.07 Normal [facility] Comment on above: Performed By: #### L 100.0100, L500.4050, L506.1001, L500.4100, L501.7510, L501.9985 ####[facility] [address] [place], [address] Cholesterol [Mass/Vol] 142 mg/dL Normal <=200 [facility] Comment on above: Result Comment: Chol esterol level, Desirable <200 mg/dL Borderline high cholesterol 200-239 mg/dL High cholesterol >=240 mg/dL Recommendations of the NCEP Adult Treatment Panel for the following risk-cutoff thresholds for the [place] population. Performed By: #### L 100.0100, L500.4050, L506.1001, L500.4100, L501.7510, L501.9985 ####[facility] [address] [place], [address] Cholesterol in HDL [Mass/Vol] 69 mg/dL Normal [facility] Comment on above: Result Comment: Hailee onal Cholesterol Education Program (NCEP) guidelines: <40 mg/dL: Low HDL-cholesterol (major risk factor for CHD) >= 60 mg/dL: High HDL-cholesterol (negative risk factor for CHD) HDL-cholesterol is affected by a number of factors, e.g. smoking, exercise, hormones, sex and age. Performed By: #### L 100.0100, L500.4050, L506.1001, L500.4100, L501.7510, L501.9985 ####[facility] [address] [place], [address] Cholesterol in LDL [Mass/Vol] 57 mg/dL Normal [facility] Comment on above: Result Comment: Bord eonwpj=757-564 mg/dL Higher Ttql=306 mg/dL or greater Performed By: #### L 100.0100, L500.4050, L506.1001, L500.4100, L501.7510, L501.9985 ####[facility] [address] [place], [address] Cholesterol in VLDL [Mass/Vol] 17 mg/dL Normal 5-40 [facility] Comment on above: Performed By: #### L 100.0100, L500.4050, L506.1001, L500.4100, L501.7510, L501.9985 ####[facility] [address] [place], [address] Triglyceride [Mass/Vol] 83 mg/dL Normal [facility] Comment on above: Result Comment: The drugs N-Acetylcysteine and Metamizole may falsely depress this assay. Normal range: <150 mg/dL Borderline High: 150-199 mg/dL High: 200-499 mg/dL Very High: >500 mg/dL Performed By: #### L 100.0100, L500.4050, L506.1001, L500.4100, L501.7510, L501.9985 ####[facility] [address] [place], [address] Vitamin D,25 Hydroxyon 01-18 Vitamin D 25-OH 62.1 ng/mL Normal 30-100 [facility] Comment on above: Result Comment: Pamela min D Status Deficiency: <20 ng/mL (50nmol/L) Insufficiency: 20-30 ng/mL (50-75 nmol/L) Sufficiency: 30-100 ng/mL (75-250 nmol/L) Toxicity: >100 ng/mL (>250 nmol/L) Performed By: #### L 100.0100, L500.4050, L506.1001, L500.4100, L501.7510, L501.9985 #### [facility] [address] [place], [address] Absolute lymphocyte countOrd ered By: Wei Garsia on 01-17-2025 Lymphocytes Auto (Unsp spec) [#/Vol] 1.85 10*3/uL 0.83-4.51 [facility] Absolute neutrophil countOrd ered By: Wei Garsia on 01-17-2025 Neutrophils (Bld) [#/Vol] 4.1 10*3/uL 2.0-7.7 [facility] Anion gap in Serum or Plasma Ordered By: Wei Sun on 01-17-2025 Anion gap [Moles/Vol] 12 mmol/L 5-15 [facility] Automated lymphocyte count a s percentage of total leukocytesOrdered By: Wei JoyaSun on 01-17-2025 Lymphocytes/100 WBC Auto (Unsp spec) 27.2 % 19-41 [facility] BUN/creatinine ratioOrdered By: Wei Garsia on 01-17-2025 Urea nitrogen/Creatinine [Mass ratio] 24.1 mg/mg High 10-20 [facility] Basophil percentageOrdered B y: Wei Garsia on 01-17-2025 Basophils/100 WBC (Bld) 0.9 % 0-1 [facility] Bilirubin, totalOrdered By: Wei Garsia on 01-17-2025 Bilirubin [Mass/Vol] 0.51 mg/dL 0.00-1.30 [facility] CBC W/Diff, Automatedon 01-02 Absolute Lymph 1.85 X10 3/uL Normal 0.83-4.51 [facility] Comment on above: Performed By: #### L 100.0100, L500.4050, L506.1001, L500.4100, L501.7510, L501.9985 #### [facility] [address] [facility] [place], [address] Absolute Neut 4.1 X10 3/uL Normal 2.0-7.7 [facility] Comment on above: Performed By: #### L 100.0100, L500.4050, L506.1001, L500.4100, L501.7510, L501.9985 #### [facility] [address] [place], [address] Basophils/100 WBC (Bld) 0.9 % Normal 0-1 [facility] Comment on above: Performed By: #### L 100.0100, L500.4050, L506.1001, L500.4100, L501.7510, L501.9985 #### [facility] [address] [place], [address] Eosinophils/100 WBC (Bld) 2.8 % Normal 0-5 [facility] Comment on above: Performed By: #### L 100.0100, L500.4050, L506.1001, L500.4100, L501.7510, L501.9985 #### [facility] [address] [place], [address] Erythrocyte distribution width (RBC) [Ratio] 14.2 % Normal 11.6-14.6 [facility] Comment on above: Performed By: #### L 100.0100, L500.4050, L506.1001, L500.4100, L501.7510, L501.9985 #### [facility] [address] [place], [address] Hematocrit (Bld) [Volume fraction] 40.1 % Normal 37-47 [facility] Comment on above: Performed By: #### L 100.0100, L500.4050, L506.1001, L500.4100, L501.7510, L501.9985 #### [facility] [address] [place], [address] Hemoglobin (Bld) [Mass/Vol] 12.8 g/dL Normal 12.0-15.0 [facility] Comment on above: Performed By: #### L 100.0100, L500.4050, L506.1001, L500.4100, L501.7510, L501.9985 #### [facility] [address] [place], [address] IG% 0.400 Normal 0.0-0.9 [facility] Comment on above: Result Comment: IG% - Immature Granulocytes (promyelocytes, myelocytes and metamyelocytes) > 1% indicates that a LEFT SHIFT is Present. Performed By: #### L 100.0100, L500.4050, L506.1001, L500.4100, L501.7510, L501.9985 #### [facility] [address] [place], [address] Lymphocytes/100 WBC (Bld) 27.2 % Normal 19-41 [facility] Comment on above: Performed By: #### L 100.0100, L500.4050, L506.1001, L500.4100, L501.7510, L501.9985 #### [facility] [address] [place], [address] MCH (RBC) [Entitic mass] 28.8 pg Normal 27.0-32.0 [facility] Comment on above: Performed By: #### L 100.0100, L500.4050, L506.1001, L500.4100, L501.7510, L501.9985 #### [facility] [address] [place], [address] MCHC (RBC) [Mass/Vol] 31.9 g/dL Low 32-36 [facility] Comment on above: Performed By: #### L 100.0100, L500.4050, L506.1001, L500.4100, L501.7510, L501.9985 #### [facility] [address] [place], [address] MCV (RBC) [Entitic vol] 90.3 fL Normal 81-99 [facility] Comment on above: Performed By: #### L 100.0100, L500.4050, L506.1001, L500.4100, L501.7510, L501.9985 #### [facility] [address] [place], [address] Monocytes/100 WBC (Bld) 9.0 % Normal 0-10 [facility] Comment on above: Performed By: #### L 100.0100, L500.4050, L506.1001, L500.4100, L501.7510, L501.9985 #### [facility] [address] [place], [address] Neutrophils/100 WBC (Bld) 59.7 % Normal 47-70 [facility] Comment on above: Performed By: #### L 100.0100, L500.4050, L506.1001, L500.4100, L501.7510, L501.9985 #### [facility] [address] [place], [address] Nucleated RBC (Bld) [#/Vol] 0 10*3/uL Normal 0-5 [facility] Comment on above: Performed By: #### L 100.0100, L500.4050, L506.1001, L500.4100, L501.7510, L501.9985 #### [facility] [address] [place], [address] Platelet mean volume (Bld) [Entitic vol] 10.1 fL Normal 6.2-12.0 [facility] Comment on above: Performed By: #### L 100.0100, L500.4050, L506.1001, L500.4100, L501.7510, L501.9985 #### [facility] [address] [place], [address] Platelets (Bld) [#/Vol] 261 10*3/uL Normal 150-450 [facility] Comment on above: Performed By: #### L 100.0100, L500.4050, L506.1001, L500.4100, L501.7510, L501.9985 #### [facility] [address] [place], [address] RBC (Bld) [#/Vol] 4.44 10*6/uL Normal 4.2-5.4 [facility] Comment on above: Performed By: #### L 100.0100, L500.4050, L506.1001, L500.4100, L501.7510, L501.9985 #### [facility] [address] [place], [address] RDW SD 46.7 fl High 35.1-43.9 [facility] Comment on above: Performed By: #### L 100.0100, L500.4050, L506.1001, L500.4100, L501.7510, L501.9985 #### [facility] [address] [place], [address] WBC (Bld) [#/Vol] 6.8 10*3/uL Normal 4.4-11.0 [facility] Comment on above: Performed By: #### L 100.0100, L500.4050, L506.1001, L500.4100, L501.7510, L501.9985 #### [facility] [address] [place], [address] Calculated very low density lipoprotein (VLDL) cholesterol measurementOrdered By: Wei Garsia on 01-17-2025 Calculated very low density lipoprotein (VLDL) cholesterol measurement 17 mg/dL 5-40 [facility] Carbon dioxide, total [Moles /volume] in Central venous bloodOrdered By: Wei Garsia on 01-17-2025 CO2 [Moles/Vol] 23.8 mmol/L 21.0-32.0 [facility] Chloride assayOrdered By: Stefan Garsia on 01-17-2025 Chloride [Moles/Vol] 104 mmol/L 98-108 [facility] Digoxin Levelon 01-17-2025 DIG 0.86 ng/mL Normal 0.00-2.00 [facility] Comment on above: Performed By: #### L 100.0100, L500.4050, L506.1001, L500.4100, L501.7510, L501.9985 #### [facility] [address] [place], [address] Eosinophil percentageOrdered By: Wei Sun on 01-17-2025 Eosinophils/100 WBC (Bld) 2.8 % 0-5 [facility] Erythrocyte distribution wid th ratioOrdered By: Wei JoyaSun on 01-17-2025 Erythrocyte distribution width (RBC) [Ratio] 14.2 % 11.6-14.6 [facility] Erythrocyte distribution wid th standard deviationOrdered By: Wei JoyaSun on 01-17-2025 Erythrocyte distribution width (RBC) [Ratio] 46.7 fl High 35.1-43.9 [facility] Glomerular filtration rate ( GFR) estimation/1.73 sq m using serum, plasma, or whole bOrdered By: Wei Garsia on 01-17-2025 GFR/1.73 sq M.predicted among non-blacks MDRD (S/P/Bld) [Vol rate/Area] 47 mL/min/{1.73_m2} Low >60 [facility] Comment on above: mL/min/1.73m2 CKD-EP I Creatinine Equation (2020) Hematocrit Auto (Bld) [Volum e fraction]Ordered By: Wei Garsia on 01-17-2025 Hematocrit (Bld) [Volume fraction] 40.1 % 37-47 [facility] Hemoglobin A1con 01-17-2025 HbA1c (Bld) [Mass fraction] 6.4 % High <=5.6 [facility] Comment on above: Result Comment: Norm al < 5.7 % Prediabetic 5.7 - 6.4 % Diabetic >or= 6.5 % Please note range changes. Performed By: #### L 100.0100, L500.4050, L506.1001, L500.4100, L501.7510, L501.9985 #### [facility] [address] [place], [address] Hemoglobin A1c percentageOrd ered By: Wei Garsia on 01-17-2025 HbA1c (Bld) [Mass fraction] 6.4 % High <5.7 [facility] Comment on above: Normal < 5.7 % Predi abetic 5.7 - 6.4 % Diabetic >or= 6.5 % Please note range changes. Hemoglobin measurementOrdere d By: Wei Garsia on 01-17-2025 Hemoglobin (Bld) [Mass/Vol] 12.8 g/dL 12.0-15.0 [facility] Immature granulocytes/100 WB C Auto (Bld)Ordered By: Wei Garsia on 01-17-2025 Immature granulocytes/100 WBC (Bld) 0.400 % 0.0-0.9 [facility] Comment on above: IG% - Immature Granu locytes (promyelocytes, myelocytes and metamyelocytes) > 1% indicates that a LEFT SHIFT is Present. LDL calc ser/plasOrdered By: Wei Garsia on 01-17-2025 Cholesterol in LDL [Mass/Vol] 57 mg/dL [facility] Comment on above: Lpybwcvkmi=657-754 m g/dL & Higher Fuhd=109 mg/dL or greater Laboratory - Chemistry and C hemistry - challengeOrdered By: Wei Garsia on 01-17-2025 AST [Catalytic activity/Vol] 24 U/L <32 [facility] MCV (mean corpuscular volume ) determinationOrdered By: Wei Garsia on 01-17-2025 MCV (RBC) [Entitic vol] 90.3 fL 81-99 [facility] Mean corpuscular hemoglobin (MCH) determinationOrdered By: Wei Garsia on 01-17-2025 MCH (RBC) [Entitic mass] 28.8 pg 27.0-32.0 [facility] Mean corpuscular hemoglobin concentration (MCHC) determinationOrdered By: Wei Garsia on 01-17-2025 MCHC (RBC) [Mass/Vol] 31.9 g/dL Low 32-36 [facility] Mean platelet volume determi nationOrdered By: Wei Garsia on 01-17-2025 Platelet mean volume (Bld) [Entitic vol] 10.1 fL 6.2-12.0 [facility] Monocyte percentageOrdered B y: Wei Garsia on 01-17-2025 Monocytes/100 WBC (Bld) 9.0 % 0-10 [facility] Neutrophil percentageOrdered By: Wei Garsia on 01-17-2025 Neutrophils/100 WBC (Bld) 59.7 % 47-70 [facility] Nucleated red blood cell per centageOrdered By: Wei Garsia on 01-17-2025 Nucleated RBC/100 WBC (Bld) [Ratio] 0 % 0-5 [facility] Platelet countOrdered By: Stefan Garsia on 01-17-2025 Platelets (Bld) [#/Vol] 261 10*3/uL 150-450 [facility] Potassium measurement (mass/ volume)Ordered By: Wei Garsia on 01-17-2025 Potassium (Unsp spec) [Mass/Vol] 4.2 mmol/L 3.3-5.1 [facility] RBC Auto (Bld) [#/Vol]Ordere d By: Wei Garsia on 01-17-2025 RBC (Bld) [#/Vol] 4.44 10*6/uL 4.2-5.4 [facility] Screening total cholesterol/ high density lipoprotein (HDL) cholesterol ratioOrdered By: Wei Garsia on 01-17-2025 Cholesterol.total/Cholest pablo in HDL [Mass ratio] 2.07 {ratio} [facility] Serum creatinine measurement (mass/volume)Ordered By: Wei Garsia on 01-17-2025 Creatinine [Mass/Vol] 1.13 mg/dL 0.70-1.20 [facility] Serum globulin measurementOr dered By: Wei Garsia on 01-17-2025 Globulin (S) [Mass/Vol] 2.5 g/dL 2.2-4.2 [facility] Serum glucose measurement (m ass/volume)Ordered By: Wei Garsia on 01-17-2025 Glucose [Mass/Vol] 110 mg/dL High 70-99 [facility] Serum or plasma alanine shah otransferase (ALT) measurementOrdered By: Wei Garsia on 01-17-2025 ALT [Catalytic activity/Vol] 18 U/L <35 [facility] Serum or plasma albumin bola urement (mass/volume)Ordered By: Wei Garsia on 01-17-2025 Albumin [Mass/Vol] 4.3 g/dL 3.4-4.8 [facility] Serum or plasma albumin/glob ulin mass ratioOrdered By: Wei Garsia on 01-17-2025 Albumin/Globulin [Mass ratio] 1.7 {ratio} 0.9-2.4 [facility] Serum or plasma alkaline jana sphatase measurementOrdered By: Wei Garsia on 01-17-2025 ALP [Catalytic activity/Vol] 114 U/L High 35-104 [facility] Serum or plasma calcium bola urement (mass/volume)Ordered By: Wei Garsia on 01-17-2025 Calcium [Mass/Vol] 9.9 mg/dL 7.6-11.0 [facility] Serum or plasma cholesterol in HDL measurement (mass/volume)Ordered By: Wei Garsia on 01-17-2025 Cholesterol in HDL [Mass/Vol] 69 mg/dL >40 [facility] Comment on above: National Cholesterol Education Program (NCEP) guidelines:<40 mg/dL: Low HDL-cholesterol (major risk factor for CHD)>= 60 mg/dL: High HDL-cholesterol (negative risk factor for CHD)HDL-cholesterol is affected by a number of factors, e.g. smoking, exercise, hormones, sex and age. Serum or plasma cholesterol measurement (mass/volume)Ordered By: Wei Garsia on 01-17-2025 Cholesterol [Mass/Vol] 142 mg/dL <201 [facility] Comment on above: Cholesterol level, D esirable <200 mg/dLBorderline high cholesterol 200-239 mg/dLHigh cholesterol >=240 mg/dLRecommendations of the NCEP Adult Treatment Panel for the following risk-cutoff thresholds for the [place] population. Serum or plasma digoxin bola urement (mass/volume)Ordered By: Wei Garsia on 01-17-2025 Digoxin [Mass/Vol] 0.86 ng/mL 0.00-2.00 [facility] Serum or plasma urea nitroge n measurement (mass/volume)Ordered By: Wei Garsia on 01-17-2025 Urea nitrogen [Mass/Vol] 27 mg/dL High 4-19 [facility] Sodium levelOrdered By: Wei Garsia on 01-17-2025 Sodium [Moles/Vol] 141 mmol/L 133-145 [facility] Total proteinOrdered By: Barbara Garsia on 01-17-2025 Protein [Mass/Vol] 6.7 g/dL 5.9-8.4 [facility] Triglycerides measurementOrd ered By: Wei Garsia on 01-17-2025 Triglyceride [Mass/Vol] 83 mg/dL <199 [facility] Comment on above: The drugs N-Acetylcy steine and Metamizole may falsely depress this assay. Normal range: <150 mg/dLBorderline High: 150-199 mg/dLHigh: 200-499 mg/dLVery High: >500 mg/dL White blood cell (WBC) count Ordered By: Wei Garsia on 01-17-2025 WBC (Bld) [#/Vol] 6.8 10*3/uL 4.4-11.0 [facility] 36on 01-12-2025 36 Pt was seen today. No further action needed. Closing encounter. [facility] 36 Attempted to call patient to add to later in the day, pt phone is no longer in service. [facility] Progress Noteon 01-12-2025 Progress Note Administrations This Visit onabotulinumtoxin A (BOTOX) injection 300 Units Admin Date 01/12/25 Action Given Dose 300 Units [address] IntraMUSCular Site Other Administered By Garret Sanchez MD Ordering Provider: Garret Sanchez MD ND: [id number] (1) and [phone] (1) Lot#: [id number] (1), [id number] (1) Supervisor Painting Department: [employer] Patient Supplied?: No [facility] 36on 01-10-2025 36 Name of Caller: Jordy Contact Reason for Appointment: Jordy called in asking to reschedule her Botox appointment scheduled 01/12/25 to later that day if possible. Advised she had a in the family and services are the morning of 01/12/25. Please call patient back to reschedule. Office Name: [facility] Progress Noteon 10-13-2024 Progress Note Administrations This Visit onabotulinumtoxin A (BOTOX) injection 200 Units Admin Date 10/13/24 Action Given Dose [address] IntraMUSCular Site Other Administered By Garret Sanchez MD Ordering Provider: Garret Sanchez MD NDC: [id number] (x 3) Lot#: [id number] (x 3) Supervisor Painting Department: [employer] Patient Supplied?: No Normal [facility] Progress Noteon 07-07-2024 Progress Note Administrations This Visit onabotulinumtoxin A (BOTOX) injection 200 Units Admin Date 07/07/2024 Action Given Dose 300 Units Route IntraMUSCular Site Other Administered By [facility] Ordering Provider: Garret Sanchez MD [facility]:[id number] [id number] Lot#: [id number] Supervisor Painting Department: [employer]er[employer] Patient Supplied?: no, buy and bill Normal [facility] Chest WITH Contraston 2023 Chest WITH Contrast [facility] Imaging Services [address] [place], [place] [id number] Chest WITH Contrast MR#: [id number] Acct: [id number] Name: JORDY FOSTER Rep #: [id number] : 1935 F 88 From: Reji Vital MD PCP: Dr. Wei Garsia DO Status: REG CLI Study: Chest WITH Contrast Date of Exam: 04/06/24 Exam# [id number] Ordering Dr: Wei Garsia DO -[id number] INDICATION: Solitary pulmonary nodule EXAMINATION: CT [...] EDT , CC: Dr. Wei Garsia DO Maintenance Planner: Signed Normal [facility] 12 Lead EKGon 03-28-2024 12 Lead EKG [facility] Cardiovascular Services [address] [place] [address] 12 Lead EKG 03/28/24 1124 MR#: [id number] Acct: [id number] Name: JORDY FOSTER Rep #: [id number] : 1935 88 From: Christopher Tavarez MD [...] abnormality Abnormal ECG Confirmed by Christopher Tavarez ([id number]), online content editor EDENILSON WOO ([id number]) on 03/29/2024 10:58:51 AM Referred By: Confirmed By:Christopher Tavarez 03/29/24 1058 Date Christopher Tavarez MD CC: Dr. Max Jacobs MD; Dr. Wei Garsia DO; ANDREA Frank Signed [facility] Basic Metabolic Profile (BMP )on 03-28-2024 BUN/CRE 20.9 RATIO High 10-20 [facility] Comment on above: Order Comment: 1Y Performed By: #### L 500.2500, L100.0100, L501.5425 ####[facility] [address] [place], [address] CA,Total 8.7 mg/dL Normal 8.5-10.1 [facility] Comment on above: Order Comment: 1Y Performed By: #### L 500.2500, L100.0100, L501.5425 ####[facility] [address] [place], [address] Chloride [Moles/Vol] 104 mmol/L Normal 98-107 [facility] Comment on above: Order Comment: 1Y Performed By: #### L 500.2500, L100.0100, L501.5425 ####[facility] [address] [place], [address] CO2 [Moles/Vol] 25.0 mmol/L Normal 21.0-32.0 [facility] Comment on above: Order Comment: 1Y Performed By: #### L 500.2500, L100.0100, L501.5425 ####[facility] [address] [place], [address] Creatinine [Mass/Vol] 1.10 mg/dL High 0.55-1.02 [facility] Comment on above: Order Comment: 1Y Result Comment: The validity of the calculated GFR GFRAA in patients over 70 years has not been determined. Clinical correlation is essential. Performed By: #### L 500.2500, L100.0100, L501.5425 ####[facility] [address] [place], [address] ECRCL 39.19 ml/min Normal [facility] Comment on above: Order Comment: 1Y Performed By: #### L 500.2500, L100.0100, L501.5425 ####[facility] [address] [place], [address] EST GFR - AA 61 mL/min Normal >60 [facility] Comment on above: Order Comment: 1Y Result Comment: Afri can [place] GFR Calc Performed By: #### L 500.2500, L100.0100, L501.5425 ####[facility] [address] [place], [address] GAP 7 Normal 5-15 [facility] Comment on above: Order Comment: 1Y Performed By: #### L 500.2500, L100.0100, L501.5425 ####[facility] [address] [place], [address] GFR/1.73 sq M.predicted among non-blacks MDRD (S/P/Bld) [Vol rate/Area] 50 mL/min/{1.73_m2} Low >60 [facility] Comment on above: Order Comment: 1Y Result Comment: Non- GFR Calc Performed By: #### L 500.2500, L100.0100, L501.5425 ####[facility] [address] [place], [address] Glucose [Mass/Vol] 132 mg/dL High 74-106 [facility] Comment on above: Order Comment: 1Y Result Comment: Fast ing Glucose result greater than or equal to 126 mg/dL suggests DIABETES MELLITUS per A.D.A. criteria. Performed By: #### L 500.2500, L100.0100, L501.5425 ####[facility] [address] [place], [address] Potassium [Moles/Vol] 4.1 mmol/L Normal 3.5-5.1 [facility] Comment on above: Order Comment: 1Y Performed By: #### L 500.2500, L100.0100, L501.5425 ####[facility] [address] [place], [address] Sodium [Moles/Vol] 136 mmol/L Normal 136-145 [facility] Comment on above: Order Comment: 1Y Performed By: #### L 500.2500, L100.0100, L501.5425 ####[facility] [address] [place], [address] Urea nitrogen [Mass/Vol] 23 mg/dL High 7-18 [facility] Comment on above: Order Comment: 1Y Performed By: #### L 500.2500, L100.0100, L501.5425 ####[facility] [address] [place], [address] CBC W/Diff, Automatedon 2 -2023 Absolute Lymph 2.02 X10 3/uL Normal 0.83-4.51 [facility] Comment on above: Performed By: #### L 500.2500, L100.0100, L501.5425 ####[facility] [address] [place], [address] Absolute Neut 6.5 X10 3/uL Normal 2.0-7.7 [facility] Comment on above: Performed By: #### L 500.2500, L100.0100, L501.5425 ####[facility] [address] [place], [address] Basophils/100 WBC (Bld) 0.5 % Normal 0-1 [facility] Comment on above: Performed By: #### L 500.2500, L100.0100, L501.5425 ####[facility] [address] [place], [address] Eosinophils/100 WBC (Bld) 2.3 % Normal 0-5 [facility] Comment on above: Performed By: #### L 500.2500, L100.0100, L501.5425 ####[facility] [address] [place], [address] Erythrocyte distribution width (RBC) [Ratio] 14.6 % Normal 11.6-14.6 [facility] Comment on above: Performed By: #### L 500.2500, L100.0100, L501.5425 ####[facility] [address] [place], [address] Hematocrit (Bld) [Volume fraction] 43.1 % Normal 37-47 [facility] Comment on above: Performed By: #### L 500.2500, L100.0100, L501.5425 ####[facility] [address] [place], [address] Hemoglobin (Bld) [Mass/Vol] 13.5 g/dL Normal 12.0-15.0 [facility] Comment on above: Performed By: #### L 500.2500, L100.0100, L501.5425 ####[facility] [address] [place], [address] IG% 0.400 Normal 0.0-0.9 [facility] Comment on above: Result Comment: IG% - Immature Granulocytes (promyelocytes, myelocytes and metamyelocytes) > 1% indicates that a LEFT SHIFT is Present. Performed By: #### L 500.2500, L100.0100, L501.5425 ####[facility] [address] [place], [address] Lymphocytes/100 WBC (Bld) 20.6 % Normal 19-41 [facility] Comment on above: Performed By: #### L 500.2500, L100.0100, L501.5425 ####[facility] [address] [place], [address] MCH (RBC) [Entitic mass] 26.7 pg Low 27.0-32.0 [facility] Comment on above: Performed By: #### L 500.2500, L100.0100, L501.5425 ####[facility] [address] [place], [address] MCHC (RBC) [Mass/Vol] 31.3 g/dL Low 32-36 [facility] Comment on above: Performed By: #### L 500.2500, L100.0100, L501.5425 ####[facility] [address] [place], [address] MCV (RBC) [Entitic vol] 85.2 fL Normal 81-99 [facility] Comment on above: Performed By: #### L 500.2500, L100.0100, L501.5425 ####[facility] [address] [place], [address] Monocytes/100 WBC (Bld) 9.8 % Normal 0-10 [facility] Comment on above: Performed By: #### L 500.2500, L100.0100, L501.5425 ####[facility] [address] [place], [address] Neutrophils/100 WBC (Bld) 66.4 % Normal 47-70 [facility] Comment on above: Performed By: #### L 500.2500, L100.0100, L501.5425 ####[facility] [address] [place], [address] Nucleated RBC (Bld) [#/Vol] 0 10*3/uL Normal 0-5 [facility] Comment on above: Performed By: #### L 500.2500, L100.0100, L501.5425 ####[facility] [address] [place], [address] Platelet mean volume (Bld) [Entitic vol] 11.4 fL Normal 6.2-12.0 [facility] Comment on above: Performed By: #### L 500.2500, L100.0100, L501.5425 ####[facility] [address] [place], [address] Platelets (Bld) [#/Vol] 178 10*3/uL Normal 150-450 [facility] Comment on above: Performed By: #### L 500.2500, L100.0100, L501.5425 ####[facility] [address] [place], [address] RBC (Bld) [#/Vol] 5.06 10*6/uL Normal 4.2-5.4 [facility] Comment on above: Performed By: #### L 500.2500, L100.0100, L501.5425 ####[facility] [address] [place], [address] RDW SD 44.9 fl High 35.1-43.9 [facility] Comment on above: Performed By: #### L 500.2500, L100.0100, L501.5425 ####[facility] [address] [place], [address] WBC (Bld) [#/Vol] 9.8 10*3/uL Normal 4.4-11.0 [facility] Comment on above: Performed By: #### L 500.2500, L100.0100, L501.5425 ####[facility] [address] [place], [address] Chest PA and Lateralon 03-28 Chest PA and Lateral [facility] Imaging Services [address] [place] [address] Chest PA and Lateral MR#: [id number] Acct: [id number] Name: JORDY FOSTER Rep #: [id number] : 1935 F 88 From: Eloise rojo MD PCP: Dr. Wei Garsia, DO Status: [facility] ER Study: Chest PA and Lateral Date of Exam: 03/28/24 Exam# [id number] Ordering Dr: Kimberli Bedoya -[id number] HISTORY: chest pain. TECHNIQUE: XR Chest [...] CC: Dr. Wei Garsia DO; ANDREA Frank Maintenance Planner: Signed Normal [facility] Emergency Department Summary on 03-28-2024 Emergency Department Summary [facility] Medical Records Department [address] [place] [address] Emergency Department Summary 03/28/24 MR#: [id number] Acct: [id number] Name: JORDY FOSTER Rep #: [id number] : 1935 88 From: Max Jacobs MD [...] Recent Immobilization or Prior DVT or PE [facility] Medical History Pneumonia COVID-19 UTI (urinary [...] wounds Physical (more content not included)... Normal [facility] L501.5425on 03-28-2024 TROPONIN-I HS 19 pg/mL Normal 3.0-54.0 [facility] Comment on above: Order Comment: 1Y Result Comment: Plea se Note: New Test Units and Gender Specific Reference Ranges. For more information see Policy Stat Procedure [place] High Sensitivity Troponin (TNIH) and attachments. Performed By: #### L 500.2500, L100.0100, L501.5425 ####[facility] [address] [place], [address] Progress Noteon 03-03-2024 Progress Note Administrations This Visit onabotulinumtoxin A (BOTOX) injection 200 Units Admin Date 03/03/2024 Action Given Dose 250 Units Route IntraMUSCular Site Other Administered By [facility] Ordering Provider: Garret Sanchez MD [facility]:[id number] [id number] Lot#: [id number] Supervisor Painting Department: [employer] Patient Supplied?: No, buy and bill [facility] 36on 02-16-2024 36 Pt notified there are no available appts for 02/25/2024. She is on the wait list if anything opens up. [facility] 36 S: Patient spoke with [facility] nurse regarding moving up botox injection appt [...] office to review and call pt at [phone]. Pt states she is in pain and [...] your last menstrual period? N/A Protocols used: [id number]-EVRMP-GC Normal [facility] 36 error Normal [facility] Laboratory - Miscellaneous t estsOrdered By: Wei Garsia on 11-12-2023 Service comment (Unsp spec) [Interp] Comment . [facility] Comment on above: Levels of [...] 11-12-2023 Scallop Allergen <0.10 kU/L Class 0 [facility] Sesame Seed Allergen IgE Antibody <0.10 kU/L Class 0 [facility] Comment on above: Performed at: [address] [id number] Director: Rodo Henderson MD, Phone: [phone] Shrimp Allergen <0.10 kU/L Class 0 [facility] Serum black walnut IgE antib radha assay (units/volume)Ordered By: Wei Garsia on 11-12-2023 Black [place] IgE Qn (S) <0.10 kU/L Class 0 [facility] Serum clam IgE antibody assa y (units/volume)Ordered By: Wei Garsia on 11-12-2023 Clam IgE Qn (S) <0.10 kU/L Class 0 [facility] Serum codfish IgE antibody a ssay (units/volume)Ordered By: Wei Garsia on 11-12-2023 Codfish IgE Qn (S) <0.10 kU/L Class 0 [facility] Serum corn IgE antibody assa y (units/volume)Ordered By: Wei Garsia on 11-12-2023 [place] IgE Qn (S) <0.10 kU/L Class 0 [facility] Serum cow milk IgE antibody assay (units/volume)Ordered By: Wei Garsia on 11-12-2023 Cow milk IgE Qn (S) <0.10 kU/L Class 0 [facility] Serum egg white IgE antibody assay (units/volume)Ordered By: Wei Garsia on 11-12-2023 Egg white IgE Qn (S) <0.10 kU/L Class 0 [facility] Serum peanut IgE antibody as say (units/volume)Ordered By: Wei Garsia on 11-12-2023 Peanut IgE Qn (S) <0.10 kU/L Class 0 [facility] Serum soybean IgE antibody a ssay (units/volume)Ordered By: Wei Garsia on 11-12-2023 Soybean IgE Qn (S) <0.10 kU/L Class 0 [facility] Serum wheat IgE antibody ass ay (units/volume)Ordered By: Wei Garsia on 11-12-2023 Wheat IgE Qn (S) <0.10 kU/L Class 0 [facility] No Panel InformationOrdered By: Christopher Tavarez on 11-11-2023 Digoxin Level 0.62 ng/mL 0.80-2.00 [facility] Absolute lymphocyte countOrd ered By: Wei Garsia on 10-28-2023 Lymphocytes Auto (Unsp spec) [#/Vol] 2.66 10*3/uL 0.83-4.51 [facility] Automated lymphocyte count a s percentage of total leukocytesOrdered By: Wei Garsia on 10-28-2023 Lymphocytes/100 WBC Auto (Unsp spec) 30.8 % 19-41 [facility] Basophil percentageOrdered B y: Wei Garsia on 10-28-2023 Basophils/100 WBC (Bld) 0.9 % 0-1 [facility] Bilirubin [Mass/Vol] 0.50 mg/dL 0.20-1.00 [facility] Comment on above: For patients on eltr ombopag therapy, use of Dimension [place] TBIL is not recommended. Chloride [Moles/Vol] 108 mmol/L 98-107 [facility] Eosinophils/100 WBC (Bld) 4.2 % 0-5 [facility] Glucose [Mass/Vol] 97 mg/dL 74-106 [facility] Hemoglobin (Bld) [Mass/Vol] 12.8 g/dL 12.0-15.0 [facility] Monocytes/100 WBC (Bld) 8.9 % 0-10 [facility] Neutrophils (Bld) [#/Vol] 4.7 10*3/uL 2.0-7.7 [facility] Neutrophils/100 WBC (Bld) 55.0 % 47-70 [facility] Potassium [Moles/Vol] 4.5 mmol/L 3.5-5.1 [facility] Protein [Mass/Vol] 6.9 g/dL 6.4-8.2 [facility] Sodium [Moles/Vol] 141 mmol/L 136-145 [facility] WBC (Bld) [#/Vol] 8.6 10*3/uL 4.4-11.0 [facility] Determination of erythrocyte mean corpuscular volume (MCV)Ordered By: Wei Garsia on 10-28-2023 MCV (RBC) [Entitic vol] 87.1 fL 81-99 [facility] Erythrocyte distribution wid th ratioOrdered By: Wei Garsia on 10-28-2023 Erythrocyte distribution width (RBC) [Ratio] 14.4 % 11.6-14.6 [facility] Erythrocyte distribution wid th standard deviationOrdered By: Wei Garsia on 10-28-2023 Erythrocyte distribution width (RBC) [Entitic vol] 46.0 fL 35.1-43.9 [facility] Erythrocyte sedimentation ra teOrdered By: Wei Garsia on 10-28-2023 ESR (Bld) [Velocity] 11 mm/h 0-30 [facility] Hematocrit Auto (Bld) [Volum e fraction]Ordered By: Wei Garsia on 10-28-2023 Hematocrit (Bld) [Volume fraction] 41.9 % 37-47 [facility] Immature granulocytes/100 WB C Auto (Bld)Ordered By: Wei Garsia on 10-28-2023 Immature granulocytes/100 WBC (Bld) 0.200 % 0.0-0.9 [facility] Comment on above: IG% - Immature Granu locytes (promyelocytes, myelocytes and metamyelocytes) > 1% indicates that a LEFT SHIFT is Present. Laboratory - Chemistry and C hemistry - challengeOrdered By: Wei Garsia on 10-28-2023 Albumin/Globulin [Mass ratio] 1.3 {ratio} 0.9-2.4 [facility] ALP [Catalytic activity/Vol] 96 U/L 45-117 [facility] ALT [Catalytic activity/Vol] 25 U/L 13-56 [facility] CO2 [Moles/Vol] 27.0 mmol/L 21.0-32.0 [facility] Globulin (S) [Mass/Vol] 3.0 g/dL 2.2-4.2 [facility] Urea nitrogen/Creatinine [Mass ratio] 23.9 mg/mg 10-20 [facility] Laboratory - Hematology and Cell countsOrdered By: Wei Garsia on 10-28-2023 MCH (RBC) [Entitic mass] 26.6 pg 27.0-32.0 [facility] MCHC (RBC) [Mass/Vol] 30.5 g/dL 32-36 [facility] Nucleated RBC/100 WBC (Bld) [Ratio] 0 % 0-5 [facility] Platelet mean volume (Bld) [Entitic vol] 10.6 fL 6.2-12.0 [facility] Platelets (Bld) [#/Vol] 235 10*3/uL 150-450 [facility] No Panel InformationOrdered By: Wei Garsia on 10-28-2023 Anti-Nuclear Antibody Screen Negative [facility] C-Reactive Protein Extended Range 3.05 mg/L 0.0-3.0 [facility] Comment on above: C-Reactive Protein ( CRP) provides useful information for thediagnosis, therapy and monitoring of inflammatory processesand associated diseases. For the evaluation of Relative Riskfor Cardiovascular Disease, a High Sensitivity CRP (HSCRP)should be ordered. Centromere B Antibody Not Reportable [facility] Estimated GFR (MDRD) Amer 61 mL/min >60 [facility] Comment on above: GFR Calc Estimated GFR (MDRD) Non-Af Amer 51 mL/min >60 [facility] Comment on above: Non- GFR Calc YANI-1 Antibody Not Reportable [facility] [employer] Antibody Not Reportable [facility] SM Antibody Not Reportable [facility] SS-A/Ro IgG Antibody Not Reportable [facility] SS-B/La IgG Antibody Not Reportable [facility] RBC Auto (Bld) [#/Vol]Ordere d By: Wei Garsia on 10-28-2023 RBC (Bld) [#/Vol] 4.81 10*6/uL 4.2-5.4 [facility] Serum DNA double strand anti body assay (units/volume)Ordered By: Wei Garsia on 10-28-2023 DNA double strand Ab Qn (S) Not Reportable [facility] Serum Scl-70 antibody assay (units/volume)Ordered By: Wei Garsia on 10-28-2023 SCL-70 extractable nuclear Ab Qn (S) Not Reportable [facility] Serum or plasma calcium bola urement (mass/volume)Ordered By: Wei Garsia on 10-28-2023 Calcium [Mass/Vol] 9.5 mg/dL 8.5-10.1 [facility] Serum or plasma creatinine m easurement (mass/volume)Ordered By: Wei Garsia on 10-28-2023 Creatinine [Mass/Vol] 1.09 mg/dL 0.55-1.02 [facility] Comment on above: The validity of the calculated GFR & GFRAA in patients over 70 years has not been determined. Clinical correlation is essential. Serum or plasma urea nitroge n measurement (mass/volume)Ordered By: Wei Garsia on 10-28-2023 Urea nitrogen [Mass/Vol] 26 mg/dL 7-18 [facility] Thin prep Papanicolaou smear with manual screeningOrdered By: Wei Garsia on 10-28-2023 Thin prep Papanicolaou smear with manual screening 3.9 g/dL 3.2-5.0 [facility] Thin prep Papanicolaou smear with manual screening 23 U/L 15-37 [facility] Thin prep Papanicolaou smear with manual screening 6 5-15 [facility] Culture, urineOrdered By: Stefan Garsia on 09-02-2023 Bacteria identified Cx Nom (U) Escherichia coli [facility] Bacteria identified Cx Nom (U) Escherichia coli [facility] Absolute lymphocyte countOrd ered By: Dr. Garsia on 12-11-2022 Lymphocytes Auto (Unsp spec) [#/Vol] 2.98 10*3/uL 0.83-4.51 [facility] Basophil percentageOrdered B y: Dr. Garsia on 12-11-2022 Basophils/100 WBC (Bld) 0.9 % 0-1 [facility] Bilirubin [Mass/Vol] 0.60 mg/dL 0.20-1.00 [facility] Comment on above: For patients on eltr ombopag therapy, use of Dimension [place] TBIL is not recommended. Chloride [Moles/Vol] 107 mmol/L 98-107 [facility] Cholesterol [Mass/Vol] 133 mg/dL <200 [facility] Comment on above: <200 mg/dL Desirable 200-240 mg/dL Borderline >240 mg/dL High Risk Eosinophils/100 WBC (Bld) 2.6 % 0-5 [facility] Glucose [Mass/Vol] 116 mg/dL 74-106 [facility] Comment on above: Fasting Glucose resu lt from 100 to 125 mg/dL suggests IMPAIRED HOMEOSTASIS per A.D.A. criteria. Neutrophils (Bld) [#/Vol] 3.9 10*3/uL 2.0-7.7 [facility] Neutrophils/100 WBC (Bld) 49.9 % 47-70 [facility] Potassium [Moles/Vol] 4.3 mmol/L 3.5-5.1 [facility] Protein [Mass/Vol] 6.7 g/dL 6.4-8.2 [facility] Sodium [Moles/Vol] 141 mmol/L 136-145 [facility] Triglyceride [Mass/Vol] 96 mg/dL <199 [facility] Comment on above: The drugs N-Acetylcy steine and Metamizole may falsely depress this assay.Serum Triglycerides Reference Interval Normal <150 mg/dL Borderline high 150 - 199 mg/dL High 200 - 499 mg/dL Very High > or = 500 mg/dL WBC (Bld) [#/Vol] 7.8 10*3/uL 4.4-11.0 [facility] Blood erythrocytes count (nu mber/volume)Ordered By: Dr. Garsia on 12-11-2022 RBC (Bld) [#/Vol] 4.78 10*6/uL 4.2-5.4 [facility] Blood hemoglobin measurement (mass/volume)Ordered By: Dr. Garsia on 12-11-2022 Hemoglobin (Bld) [Mass/Vol] 13.1 g/dL 12.0-15.0 [facility] Blood lymphocytes/100 leukoc ytesOrdered By: Dr. Garsia on 12-11-2022 Lymphocytes/100 WBC (Bld) 38.3 % 19-41 [facility] Blood monocytes/100 leukocyt esOrdered By: Dr. Garsia on 12-11-2022 Monocytes/100 WBC (Bld) 8.0 % 0-10 [facility] Blood platelet mean volumeOr dered By: Dr. Garsia on 12-11-2022 Platelet mean volume (Bld) [Entitic vol] 10.6 fL 6.2-12.0 [facility] Determination of erythrocyte mean corpuscular volume (MCV)Ordered By: Dr. Garsia on 12-11-2022 MCV (RBC) [Entitic vol] 89.3 fL 81-99 [facility] Direct bilirubinOrdered By: Dr. Garsia on 12-11-2022 Bilirubin.direct [Mass/Vol] 0.14 mg/dL 0.00-0.30 [facility] Hematocrit Auto (Bld) [Volum e fraction]Ordered By: Dr. Garsia on 12-11-2022 Hematocrit (Bld) [Volume fraction] 42.7 % 37-47 [facility] Laboratory - Chemistry and C hemistry - challengeOrdered By: Dr. Garsia on 12-11-2022 ALP [Catalytic activity/Vol] 113 U/L 45-117 [facility] ALT [Catalytic activity/Vol] 36 U/L 13-56 [facility] CO2 [Moles/Vol] 28.0 mmol/L 21.0-32.0 [facility] Globulin (S) [Mass/Vol] 3.1 g/dL 2.2-4.2 [facility] Magnesium [Mass/Vol] 2.0 mg/dL 1.6-2.6 [facility] Urea nitrogen/Creatinine [Mass ratio] 24.3 mg/mg 10-20 [facility] Laboratory - Hematology and Cell countsOrdered By: Dr. Garsia on 12-11-2022 Erythrocyte distribution width (RBC) [Entitic vol] 48.3 fL 35.1-43.9 [facility] Erythrocyte distribution width (RBC) [Ratio] 14.6 % 11.6-14.6 [facility] Immature granulocytes/100 WBC (Bld) 0.300 % 0.0-0.9 [facility] Comment on above: IG% - Immature Granu locytes (promyelocytes, myelocytes and metamyelocytes) > 1% indicates that a LEFT SHIFT is Present. MCH (RBC) [Entitic mass] 27.4 pg 27.0-32.0 [facility] Nucleated RBC/100 WBC (Bld) [Ratio] 0 % 0-5 [facility] MCHC Auto (RBC) [Mass/Vol]Or dered By: Dr. Garsia on 12-11-2022 MCHC (RBC) [Mass/Vol] 30.7 g/dL 32-36 [facility] No Panel InformationOrdered By: Dr. Garsia on 12-11-2022 Estimated GFR (MDRD) Amer 72 mL/min >60 [facility] Comment on above: GFR Calc Estimated GFR (MDRD) Non-Af Amer 60 mL/min >60 [facility] Comment on above: Non- GFR Calc Platelets bldOrdered By: Dr. Garsia on 12-11-2022 Platelets (Bld) [#/Vol] 241 10*3/uL 150-450 [facility] Serum or plasma albumin bola urement (mass/volume)Ordered By: Dr. Garsia on 12-11-2022 Albumin [Mass/Vol] 3.6 g/dL 3.2-5.0 [facility] Serum or plasma albumin/glob ulin mass ratioOrdered By: Dr. Garsia on 12-11-2022 Albumin/Globulin [Mass ratio] 1.2 {ratio} 0.9-2.4 [facility] Serum or plasma calcium bola urement (mass/volume)Ordered By: Dr. Garsia on 12-11-2022 Calcium [Mass/Vol] 9.1 mg/dL 8.5-10.1 [facility] Serum or plasma cholesterol in HDL measurement (mass/volume)Ordered By: Dr. Garsia on 12-11-2022 Cholesterol in HDL [Mass/Vol] 67 mg/dL >40 [facility] Comment on above: The drugs N-Acetylcy steine and Metamizole may falsely depress this assay. Reference Range HDL <40 mg/dL Low HDL Cholesterol HDL >or= 60 mg/dL High HDL Cholesterol Serum or plasma cholesterol in VLDL measurement (mass/volume)Ordered By: Dr. Garsia on 12-11-2022 Cholesterol in VLDL [Mass/Vol] 19 mg/dL 5-40 [facility] Serum or plasma creatinine m easurement (mass/volume)Ordered By: Dr. Garsia on 12-11-2022 Creatinine [Mass/Vol] 0.95 mg/dL 0.55-1.02 [facility] Comment on above: The validity of the calculated GFR & GFRAA in patients over 70 years has not been determined. Clinical correlation is essential. Serum or plasma low density lipoprotein (LDL) cholesterol measurement (mass/volume)Ordered By: Dr. Garsia on 12-11-2022 Cholesterol in LDL [Mass/Vol] 47 mg/dL 0-130 [facility] Serum or plasma urea nitroge n measurement (mass/volume)Ordered By: Dr. Garsia on 12-11-2022 Urea nitrogen [Mass/Vol] 23 mg/dL 7-18 [facility] Thin prep Papanicolaou smear with manual screeningOrdered By: Dr. Garsia on 12-11-2022 Thin prep Papanicolaou smear with manual screening 38 U/L 15-37 [facility] Thin prep Papanicolaou smear with manual screening 6 5-15 [facility] Whole blood hemoglobin A1c/t otal hemoglobin ratio (mass fraction)Ordered By: Dr. Garsia on 12-11-2022 HbA1c (Bld) [Mass fraction] 6.3 % 3.8-5.6 [facility] Comment on above: Normal < 5.7 % Predi abetic 5.7 - 6.4 % Diabetic >or= 6.5 % Please note range changes. Absolute lymphocyte countOrd ered By: Dr. Garsia on 10-11-2022 Lymphocytes Auto (Unsp spec) [#/Vol] 2.62 10*3/uL 0.83-4.51 [facility] Basophil percentageOrdered B y: Dr. Garsia on 10-11-2022 Basophils/100 WBC (Bld) 0.6 % 0-1 [facility] Bilirubin [Mass/Vol] 0.40 mg/dL 0.20-1.00 [facility] Comment on above: For patients on eltr ombopag therapy, use of [place] [place] TBIL is not recommended. Chloride [Moles/Vol] 104 mmol/L 98-107 [facility] Eosinophils/100 WBC (Bld) 3.1 % 0-5 [facility] Glucose [Mass/Vol] 80 mg/dL 74-106 [facility] Neutrophils (Bld) [#/Vol] 7.5 10*3/uL 2.0-7.7 [facility] Neutrophils/100 WBC (Bld) 63.9 % 47-70 [facility] Potassium [Moles/Vol] 5.0 mmol/L 3.5-5.1 [facility] Protein [Mass/Vol] 7.3 g/dL 6.4-8.2 [facility] Sodium [Moles/Vol] 139 mmol/L 136-145 [facility] WBC (Bld) [#/Vol] 11.7 10*3/uL 4.4-11.0 [facility] Blood erythrocytes count (nu mber/volume)Ordered By: Dr. Garsia on 10-11-2022 RBC (Bld) [#/Vol] 4.58 10*6/uL 4.2-5.4 [facility] Blood hemoglobin measurement (mass/volume)Ordered By: Dr. Garsia on 10-11-2022 Hemoglobin (Bld) [Mass/Vol] 12.4 g/dL 12.0-15.0 [facility] Blood lymphocytes/100 leukoc ytesOrdered By: Dr. Garsia on 10-11-2022 Lymphocytes/100 WBC (Bld) 22.4 % 19-41 [facility] Blood monocytes/100 leukocyt esOrdered By: Dr. Garsia on 10-11-2022 Monocytes/100 WBC (Bld) 9.7 % 0-10 [facility] Blood platelet mean volumeOr dered By: Dr. Garsia on 10-11-2022 Platelet mean volume (Bld) [Entitic vol] 10.7 fL 6.2-12.0 [facility] COVID-19 virus antigen assay Ordered By: Dr. Garsia on 10-11-2022 SARS-CoV-2 (COVID-19) Ag IA.rapid Ql (Resp) Not detected Not Detect [facility] Comment on above: Normal Reference Ran ge: Not DetectedMethod:(RT-PCR) real-time reverse transcriptase PCRLuminex Eltechs Instrument*The Food and Drug Administration (FDA) has issued an Emergency Use Authorization (EAU) for the [employer] SARS-CoV-2 Assay for the rapid detection of [...] (RBC) [Entitic vol] 89.3 fL 81-99 [facility] Hematocrit Auto (Bld) [Volum e fraction]Ordered By: Dr. Garsia on 10-11-2022 Hematocrit (Bld) [Volume fraction] 40.9 % 37-47 [facility] Laboratory - Chemistry and C hemistry - challengeOrdered By: Dr. Garsia on 10-11-2022 ALP [Catalytic activity/Vol] 247 U/L 45-117 [facility] ALT [Catalytic activity/Vol] 71 U/L 13-56 [facility] CO2 [Moles/Vol] 29.0 mmol/L 21.0-32.0 [facility] Globulin (S) [Mass/Vol] 3.5 g/dL 2.2-4.2 [facility] Urea nitrogen/Creatinine [Mass ratio] 21.0 mg/mg 10-20 [facility] Laboratory - Hematology and Cell countsOrdered By: Dr. Garsia on 10-11-2022 Erythrocyte distribution width (RBC) [Entitic vol] 49.1 fL 35.1-43.9 [facility] Erythrocyte distribution width (RBC) [Ratio] 14.9 % 11.6-14.6 [facility] Immature granulocytes/100 WBC (Bld) 0.300 % 0.0-0.9 [facility] Comment on above: IG% - Immature Granu locytes (promyelocytes, myelocytes and metamyelocytes) > 1% indicates that a LEFT SHIFT is Present. MCH (RBC) [Entitic mass] 27.1 pg 27.0-32.0 [facility] Nucleated RBC/100 WBC (Bld) [Ratio] 0 % 0-5 [facility] MCHC Auto (RBC) [Mass/Vol]Or dered By: Dr. Garsia on 10-11-2022 MCHC (RBC) [Mass/Vol] 30.3 g/dL 32-36 [facility] No Panel InformationOrdered By: Dr. Garsia on 10-11-2022 Estimated GFR (MDRD) Amer 64 mL/min >60 [facility] Comment on above: GFR Calc Estimated GFR (MDRD) Non-Af Amer 53 mL/min >60 [facility] Comment on above: Non- GFR Calc Platelets bldOrdered By: Dr. Garsia on 10-11-2022 Platelets (Bld) [#/Vol] 257 10*3/uL 150-450 [facility] Serum or plasma albumin bola urement (mass/volume)Ordered By: Dr. Garsia on 10-11-2022 Albumin [Mass/Vol] 3.8 g/dL 3.2-5.0 [facility] Serum or plasma albumin/glob ulin mass ratioOrdered By: Dr. Garsia on 10-11-2022 Albumin/Globulin [Mass ratio] 1.1 {ratio} 0.9-2.4 [facility] Serum or plasma calcium bola urement (mass/volume)Ordered By: Dr. Garsia on 10-11-2022 Calcium [Mass/Vol] 9.8 mg/dL 8.5-10.1 [facility] Serum or plasma creatinine m easurement (mass/volume)Ordered By: Dr. Garsia on 10-11-2022 Creatinine [Mass/Vol] 1.05 mg/dL 0.55-1.02 [facility] Comment on above: The validity of the calculated GFR & GFRAA in patients over 70 years has not been determined. Clinical correlation is essential. Serum or plasma urea nitroge n measurement (mass/volume)Ordered By: Dr. Garsia on 10-11-2022 Urea nitrogen [Mass/Vol] 22 mg/dL 7-18 [facility] Thin prep Papanicolaou smear with manual screeningOrdered By: Dr. Garsia on 10-11-2022 Thin prep Papanicolaou smear with manual screening 67 U/L 15-37 [facility] Thin prep Papanicolaou smear with manual screening 6 5-15 [facility] No Panel InformationOrdered By: Dr. Srinivasan on 09-02-2022 Miscellaneous Test See comment [facility] Comment on above: TEST RESULT LIMITSI0 [...] TEST SITE INFORMATION. Tryptase 6.6 ug/L 2.2-13.2 [facility] Comment on above: Performed at: - [address] [id number] Director: Rodo Henderson MD, Phone: [phone] Absolute lymphocyte counton 11-24-2021 Lymphocytes Auto (Unsp spec) [#/Vol] 2.94 10*3/uL 0.83-4.51 [facility] Work Phone: Basophil percentageon 2021 Basophils/100 WBC (Bld) 0.7 % 0-1 [facility] Work Phone: Bilirubin [Mass/Vol] 0.50 mg/dL 0.20-1.00 [facility] Work Phone: Comment on above: For patients on eltr ombopag therapy, use of Dimension [place] TBIL is not recommended. Chloride [Moles/Vol] 107 mmol/L 98-107 [facility] Work Phone: Cholesterol [Mass/Vol] 125 mg/dL <200 [facility] Work Phone: Comment on above: <200 mg/dL Desirable 200-240 mg/dL Borderline >240 mg/dL High Risk Eosinophils/100 WBC (Bld) 3.2 % 0-5 [facility] Work Phone: Glucose [Mass/Vol] 134 mg/dL 74-106 [facility] Work Phone: Comment on above: Fasting Glucose resu lt greater than or equal to 126 mg/dL suggests DIABETES MELLITUS per A.D.A. criteria. Neutrophils (Bld) [#/Vol] 4.0 10*3/uL 2.0-7.7 [facility] Work Phone: Neutrophils/100 WBC (Bld) 50.1 % 47-70 [facility] Work Phone: Potassium [Moles/Vol] 4.5 mmol/L 3.5-5.1 [facility] Work Phone: Protein [Mass/Vol] 6.7 g/dL 6.4-8.2 [facility] Work Phone: Sodium [Moles/Vol] 140 mmol/L 136-145 [facility] Work Phone: Triglyceride [Mass/Vol] 100 mg/dL [facility] Work Phone: Comment on above: The drugs N-Acetylcy steine and Metamizole may falsely depress this assay.Serum Triglycerides Reference Interval Normal <150 mg/dL Borderline high 150 - 199 mg/dL High 200 - 499 mg/dL Very High > or = 500 mg/dL WBC (Bld) [#/Vol] 8.0 10*3/uL 4.4-11.0 [facility] Work Phone: Blood erythrocytes count (nu mber/volume)on 11-24-2021 RBC (Bld) [#/Vol] 4.69 10*6/uL 4.2-5.4 [facility] Work Phone: Blood hemoglobin measurement (mass/volume)on 11-24-2021 Hemoglobin (Bld) [Mass/Vol] 12.9 g/dL 12.0-15.0 [facility] Work Phone: Blood lymphocytes/100 leukoc yteson 11-24-2021 Lymphocytes/100 WBC (Bld) 36.6 % 19-41 [facility] Work Phone: Blood monocytes/100 leukocyt eson 11-24-2021 Monocytes/100 WBC (Bld) 9.3 % 0-10 [facility] Work Phone: Blood platelet mean volumeon 11-24-2021 Platelet mean volume (Bld) [Entitic vol] 10.0 fL 6.2-12.0 [facility] Work Phone: Determination of erythrocyte mean corpuscular volume (MCV)on 11-24-2021 MCV (RBC) [Entitic vol] 86.6 fL 81-99 [facility] Work Phone: Direct bilirubinon 2 Bilirubin.direct [Mass/Vol] 0.13 mg/dL 0.00-0.30 [facility] Work Phone: Hematocrit Auto (Bld) [Volum e fraction]on 11-24-2021 Hematocrit (Bld) [Volume fraction] 40.6 % 37-47 [facility] Work Phone: Laboratory - Chemistry and C hemistry - challengeon 11-24-2021 ALP [Catalytic activity/Vol] 96 U/L 45-117 [facility] Work Phone: ALT [Catalytic activity/Vol] 27 U/L 13-56 [facility] Work Phone: CO2 [Moles/Vol] 29.0 mmol/L 21.0-32.0 [facility] Work Phone: Globulin (S) [Mass/Vol] 3.0 g/dL 2.2-4.2 [facility] Work Phone: Magnesium [Mass/Vol] 2.2 mg/dL 1.6-2.6 [facility] Work Phone: Urea nitrogen/Creatinine [Mass ratio] 24.1 mg/mg 10-20 [facility] Work Phone: Laboratory - Hematology and Cell countson 11-24-2021 Erythrocyte distribution width (RBC) [Entitic vol] 45.5 fL 35.1-43.9 [facility] Work Phone: Erythrocyte distribution width (RBC) [Ratio] 14.3 % 11.6-14.6 [facility] Work Phone: Immature granulocytes/100 WBC (Bld) 0.100 % 0.0-0.9 [facility] Work Phone: Comment on above: IG% - Immature Granu locytes (promyelocytes, myelocytes and metamyelocytes) > 1% indicates that a LEFT SHIFT is Present. MCH (RBC) [Entitic mass] 27.5 pg 27.0-32.0 [facility] Work Phone: Nucleated RBC/100 WBC (Bld) [Ratio] 0 % 0-5 [facility] Work Phone: MCHC Auto (RBC) [Mass/Vol]on 11-24-2021 MCHC (RBC) [Mass/Vol] 31.8 g/dL 32-36 [facility] Work Phone: No Panel Informationon 11-24 Estimated GFR (MDRD) Amer 62 mL/min >60 [facility] Work Phone: Comment on above: GFR Calc Estimated GFR (MDRD) Non-Af Amer 51 mL/min >60 [facility] Work Phone: Comment on above: Non- GFR Calc Platelets bldon 11-24-2021 Platelets (Bld) [#/Vol] 240 10*3/uL 150-450 [facility] Work Phone: Serum or plasma albumin bola urement (mass/volume)on 11-24-2021 Albumin [Mass/Vol] 3.7 g/dL 3.2-5.0 [facility] Work Phone: Serum or plasma calcium bola urement (mass/volume)on 11-24-2021 Calcium [Mass/Vol] 9.2 mg/dL 8.5-10.1 [facility] Work Phone: Serum or plasma cholesterol in HDL measurement (mass/volume)on 11-24-2021 Cholesterol in HDL [Mass/Vol] 53 mg/dL [facility] Work Phone: Comment on above: The drugs N-Acetylcy steine and Metamizole may falsely depress this assay. Reference Range HDL <40 mg/dL Low HDL Cholesterol HDL >or= 60 mg/dL High HDL Cholesterol Serum or plasma cholesterol in VLDL measurement (mass/volume)on 11-24-2021 Cholesterol in VLDL [Mass/Vol] 20 mg/dL 5-40 [facility] Work Phone: Serum or plasma creatinine m easurement (mass/volume)on 11-24-2021 Creatinine [Mass/Vol] 1.08 mg/dL 0.55-1.02 [facility] Work Phone: Comment on above: The validity of the calculated GFR & GFRAA in patients over 70 years has not been determined. Clinical correlation is essential. Serum or plasma low density lipoprotein (LDL) cholesterol measurement (mass/volume)on 11-24-2021 Cholesterol in LDL [Mass/Vol] 52 mg/dL 0-130 [facility] Work Phone: Serum or plasma urea nitroge n measurement (mass/volume)on 11-24-2021 Urea nitrogen [Mass/Vol] 26 mg/dL 7-18 [facility] Work Phone: Thin prep Papanicolaou smear with manual screeningon 11-24-2021 Thin prep Papanicolaou smear with manual screening 23 U/L 15-37 [facility] Work Phone: Thin prep Papanicolaou smear with manual screening 4 5-15 [facility] Work Phone: Vital Signs Date Time Vital Sign Value Performing Clinician Facility 02-14-2025 13:49-0400 Body height 167.[address] Wei Garsia DO Work Phone: [facility] 02-14-2025 13:49-0400 Body mass index (BMI) [Ratio] 26.6 kg/m2 Dr. Wei Garsia DO Work Phone: [facility] 02-14-2025 13:49-0400 Body weight 74.[address] Wei Garsia DO Work Phone: [facility] 02-14-2025 13:49-0400 Diastolic blood pressure 69 mm[Hg] Dr. Wei Garsia DO Work Phone: [facility] 02-14-2025 13:49-0400 Heart rate 73 /min Dr. Wei Garsia DO Work Phone: [facility] 02-14-2025 13:49-0400 Respiratory rate 18 /min Dr. Wei Garsia DO Work Phone: [facility] 02-14-2025 13:49-0400 Systolic blood pressure 111 mm[Hg] Dr. Wei Garsia DO Work Phone: [facility] 01-12-2025 10:27-0400 Body height 170.2 cm Garret Sanchez MD Work Phone: [facility] 01-12-2025 10:27-0400 Body mass index (BMI) [Ratio] 26.63 kg/m2 Garret Sanchez MD Work Phone: [facility] 01-12-2025 10:27-0400 Body temperature 98.2 [degF] Garret Sanchez MD Work Phone: [facility] 01-12-2025 10:27-0400 Body weight 77.11 kg Garret Sanchez MD Work Phone: [facility] 10-13-2024 13:12-0400 Body height 170.2 cm Garret Sanchez MD Work Phone: [facility] [employer] 10-13-2024 13:12-0400 Body mass index (BMI) [Ratio] 26.16 kg/m2 Garret Sanchez MD Work Phone: [facility] [employer] 10-13-2024 13:12-0400 Body weight 75.75 kg Garret Sanchez MD Work Phone: [facility] 10-13-2024 13:12-0400 Diastolic blood pressure 66 mm[Hg] Garret Sanchez MD Work Phone: [facility] [employer] 10-13-2024 13:12-0400 Heart rate 68 /min Garret Sanchez MD Work Phone: [facility] [employer] 10-13-2024 13:12-0400 Systolic blood pressure 162 mm[Hg] Garret Sanchez MD Work Phone: [facility] [employer] 07-07-2024 08:26-0500 Diastolic blood pressure 76 mm[Hg] Garret Sanchez MD Work Phone: [facility] [employer] 07-07-2024 08:26-0500 Systolic blood pressure 166 mm[Hg] Garret Sanchez MD Work Phone: [facility] [employer] 07-07-2024 08:02-0500 Body height 170.2 cm Garret Sanchez MD Work Phone: [facility] [employer] 07-07-2024 08:02-0500 Body mass index (BMI) [Ratio] 26.16 kg/m2 Garret Sanchez MD Work Phone: [facility] [employer] 07-07-2024 08:02-0500 Body weight 75.75 kg Garret Sanchez MD Work Phone: [facility] [employer] 07-07-2024 08:02-0500 Heart rate 78 /min Garret Sanchez MD Work Phone: [facility] [employer] 03-03-2024 14:13-0400 Body height 170.2 cm Garret Sanchez MD Work Phone: [facility] [employer] 03-03-2024 14:13-0400 Body mass index (BMI) [Ratio] 26.16 kg/m2 Garret Sanchez MD Work Phone: [facility] [employer] 03-03-2024 14:13-0400 Body weight 75.75 kg Garret Sanchez MD Work Phone: [facility] [employer] 12-03-2023 11:54-0400 Body temperature 99.3 [degF] Garret Sanchez MD Work Phone: [facility] [employer] 12-03-2023 11:54-0400 Diastolic blood pressure 93 mm[Hg] Garret Sanchez MD Work Phone: [facility] 12-03-2023 11:54-0400 Heart rate 66 /min Garret Sanchez MD Work Phone: [facility] 12-03-2023 11:54-0400 Systolic blood pressure 149 mm[Hg] Garret Sanchez MD Work Phone: [facility] 11-11-2023 13:45-0400 Body height 170.[address] Wei Garsia Work Phone: [facility] 11-11-2023 13:45-0400 Body mass index (BMI) [Ratio] 27.6 kg/m2 Dr. Wei Garsia Work Phone: [facility] 11-11-2023 13:45-0400 Body weight 79.[address] Wei Garsia Work Phone: [facility] 11-11-2023 13:45-0400 Diastolic blood pressure 71 mm[Hg] Dr. Wei Garsia Work Phone: [facility] 11-11-2023 13:45-0400 Heart rate 65 /min Dr. Wei Garsia Work Phone: [facility] 11-11-2023 13:45-0400 Respiratory rate 18 /min Dr. Wei Garsia Work Phone: [facility] 11-11-2023 13:45-0400 Systolic blood pressure 109 mm[Hg] Dr. Wei Garsia Work Phone: [facility] 10-15-2023 11:25-0400 Body temperature 97 [degF] Garret Sanchez MD Work Phone: [facility] 10-15-2023 11:25-0400 Diastolic blood pressure 88 mm[Hg] Garret Sanchez MD Work Phone: [facility] 10-15-2023 11:25-0400 Heart rate 71 /min Garret Sanchez MD Work Phone: [facility] 10-15-2023 11:25-0400 Systolic blood pressure 135 mm[Hg] Garret Sanchez MD Work Phone: [facility] [employer] 07-09-2023 15:23-0500 Diastolic blood pressure 87 mm[Hg] Garret Sanchez MD Work Phone: [facility] [employer] 07-09-2023 15:23-0500 Heart rate 63 /min Garret Sanchez MD Work Phone: [facility] [employer] 07-09-2023 15:23-0500 Systolic blood pressure 148 mm[Hg] Garret Sanchez MD Work Phone: [facility] [employer] 04-09-2023 14:05-0400 Body height 170.2 cm Garret Sanchez MD Work Phone: [facility] [employer] 04-09-2023 14:05-0400 Body mass index (BMI) [Ratio] 26.16 kg/m2 Garret Sanchez MD Work Phone: [facility] [employer] 04-09-2023 14:05-0400 Body temperature 97.59 [degF] Garret Sanchez MD Work Phone: [facility] [employer] 04-09-2023 14:05-0400 Body weight 75.75 kg Garret Sanchez MD Work Phone: [facility] [employer] 04-09-2023 14:05-0400 Diastolic blood pressure 60 mm[Hg] Garret Sanchez MD Work Phone: [facility] [employer] 04-09-2023 14:05-0400 Heart rate 63 /min Garret Sanchez MD Work Phone: [facility] [employer] 04-09-2023 14:05-0400 Systolic blood pressure 144 mm[Hg] Garret Sanchez MD Work Phone: [facility] [employer] 01-01-2023 13:49-0400 Body temperature 97.5 [degF] Garret Sanchez MD Work Phone: [facility] [employer] 01-01-2023 13:49-0400 Diastolic blood pressure 88 mm[Hg] Garret Sanchez MD Work Phone: [facility] 01-01-2023 13:49-0400 Systolic blood pressure 146 mm[Hg] Garret Sanchez MD Work Phone: [facility] 12-09-2022 10:34-0400 Body height 170.[address] Wei Garsia Work Phone: [facility] 12-09-2022 10:34-0400 Body mass index (BMI) [Ratio] 27.1 kg/m2 Dr. Wei Garsia Work Phone: [facility] 12-09-2022 10:34-0400 Body weight 78.[address] Wei Garsia Work Phone: [facility] 12-09-2022 10:34-0400 Diastolic blood pressure 74 mm[Hg] Dr. Wei Garsia Work Phone: [facility] 12-09-2022 10:34-0400 Heart rate 72 /min Dr. Wei Garsia Work Phone: [facility] 12-09-2022 10:34-0400 Respiratory rate 16 /min Dr. Wei Garsia Work Phone: [facility] 12-09-2022 10:34-0400 Systolic blood pressure 133 mm[Hg] Dr. Wei Garsia Work Phone: [facility] 10-02-2022 13:18-0500 Body mass index (BMI) [Ratio] 26.16 kg/m2 Garret Sanchez MD Work Phone: [facility] 10-02-2022 13:18-0500 Body weight 75.75 kg Garret Sanchez MD Work Phone: [facility] 10-02-2022 13:18-0500 Diastolic blood pressure 74 mm[Hg] Garret Sanchez MD Work Phone: [facility] 10-02-2022 13:18-0500 Heart rate 88 /min Garret Sanchez MD Work Phone: [facility] 10-02-2022 13:18-0500 Systolic blood pressure 142 mm[Hg] Garret Sanchez MD Work Phone: [facility] 06-07-2022 11:11-0400 Body height 170.[address] Wei Garsia Work Phone: [facility] 06-07-2022 11:11-0400 Body mass index (BMI) [Ratio] 27.4 kg/m2 Dr. Wei Garsia Work Phone: [facility] 06-07-2022 11:11-0400 Body weight 79.[address] Wei Garsia Work Phone: [facility] 06-07-2022 11:11-0400 Diastolic blood pressure 64 mm[Hg] Dr. Wei Garsia Work Phone: [facility] 06-07-2022 11:11-0400 Heart rate 64 /min Dr. Wei Garsia Work Phone: [facility] 06-07-2022 11:11-0400 Respiratory rate 16 /min Dr. Wei Garsia Work Phone: [facility] 06-07-2022 11:11-0400 Systolic blood pressure 142 mm[Hg] Dr. Wei Garsia Work Phone: [facility] 11-07-2021 10:31-0400 Body height 170.[address] Wei Garsia Work Phone: [facility] Work Phone: 11-07-2021 10:31-0400 Body mass index (BMI) [Ratio] 26.2 kg/m2 Dr. Wei Garsia Work Phone: [facility] Work Phone: 11-07-2021 10:31-0400 Body weight 75.[address] Wei Garsia Work Phone: [facility] Work Phone: 11-07-2021 10:31-0400 Diastolic blood pressure 64 mm[Hg] Dr. Wei Garsia Work Phone: [facility] Work Phone: 11-07-2021 10:31-0400 Heart rate 88 /min Dr. Wei Garsia Work Phone: [facility] Work Phone: 11-07-2021 10:31-0400 Respiratory rate 20 /min Dr. Wei Garsia Work Phone: [facility] Work Phone: 11-07-2021 10:31-0400 Systolic blood pressure 120 mm[Hg] Dr. Wei Garsia Work Phone: [facility] Work Phone: Encounters Encounter Date Encounter Type Care Provider Facility Start: 02-23-2025 ambulatory Aftab Patton NP Facility :[facility] Start: 02-14-2025 End: 02-14-2025 Patient encounter procedure Aftab Patton MANAGER PROGRESSIVE CARE-C -[facility] Work Phone: Start: 02-14-2025 End: 02-14-[address] Wei Garsia DO Work Phone: -[facility] Start: 01-26-2025 End: 01-26-[address] Wei Garsia DO Work Phone: -[facility] Start: 01-26-2025 End: 01-26-[address] Wei Garsia DO -[facility] Work Phone: Start: 01-26-2025 End: 01-26-2025 ambulatory Wei Garsia Facility:[facility] Start: 01-17-2025 End: 01-17-[address] Wei Garsia DO Work Phone: [facility] Work Phone: Start: 01-17-2025 End: 01-17-[address] Wei Garsia DO -Laboratory [facility] Start: 01-17-2025 End: 01-17-2025 ambulatory [facility] Facility:[facility] Start: 01-12-2025 End: 01-12-2025 Patient encounter procedure Garret Sanchez MD Work Phone: [facility] [employer] [facility] on above: Blepharospasm of bot h eyes (Primary Dx); Torticollis; Cervical dystonia Start: 01-12-2025 End: 01-12-2025 ambulatory [facility] Start: 10-13-2024 End: 10-13-2024 Patient encounter procedure Garret Sanchez MD Work Phone: [facility] [employer] [facility] on above: Blepharospasm of bot h eyes (Primary Dx) Start: 10-13-2024 End: 10-13-2024 ambulatory GARRET [facility] Start: 07-07-2024 End: 07-07-2024 Patient encounter procedure Garret Sanchez MD Work Phone: [facility] [employer] [facility] Comment on above: Blepharospasm of bot h eyes (Primary Dx); Torticollis Start: 07-07-2024 End: 07-07-2024 ambulatory GARRET SANCHEZ [facility] Start: 04-06-2024 End: 04-06-2024 [facility] Facility:[facility] Start: 03-28-2024 End: 03-28-2024 Emergency department patient visit Max Jacobs Facility:[facility] Start: 03-03-2024 End: 03-03-2024 Patient encounter procedure Garret Sanchez MD Work Phone: [facility] Comment on above: Cervical dystonia (P rimary Dx) Start: 03-03-2024 End: 03-03-2024 ambulatory GARRET SANCHEZ [facility] Start: 02-16-2024 End: 02-16-2024 Telephone encounter Garret Sanchez MD Work Phone: [facility] Start: 12-03-2023 End: 12-03-2023 Patient encounter procedure Garret Sanchez MD Work Phone: [facility] Comment on above: Cervical dystonia (P rimary Dx) Start: 11-12-2023 End: 11-12-[address] Wei Garsia Work Phone: [facility] Work Phone: Start: 11-12-2023 End: 11-12-[address] Wei Garsia Work Phone: [facility] Start: 11-11-2023 End: 11-11-[address] Wei Garsia Work Phone: [facility] Work Phone: Start: 11-11-2023 End: 11-11-[address] [facility]: Start: 11-11-2023 End: 11-11-[address] Wei Garsia Work Phone: [facility] Work Phone: Start: 10-28-2023 End: 10-28-2023 ambulatory [facility] Work Phone: Start: 10-28-2023 End: 10-28-2023 Patient encounter procedure [facility] Work Phone: Start: 10-15-2023 End: 10-15-2023 Patient encounter procedure Garret Sanchez MD Work Phone: [facility] Comment on above: Cervical dystonia (P rimary Dx) Start: 09-02-2023 End: 09-02-2023 ambulatory [facility] Work Phone: Start: 09-02-2023 End: 09-02-2023 [facility] Work Phone: Start: 07-09-2023 End: 07-09-2023 Patient encounter procedure Garret Sanchez MD Work Phone: [facility] Comment on above: Cervical dystonia (P rimary Dx) Start: 04-09-2023 End: 04-09-2023 Patient encounter procedure Garret Sanchez MD Work Phone: [facility] Comment on above: Cervical dystonia (P rimary Dx) Start: 01-01-2023 End: 01-01-2023 Patient encounter procedure Garret Sanchez MD Work Phone: [facility] Comment on above: Blepharospasm (Prima ry Dx) Start: 12-11-2022 End: 12-11-[address] Wei Garsia Work Phone: [facility] Work Phone: Start: 12-11-2022 End: 12-11-[address] Wei Garsia Work Phone: [facility] Start: 12-09-2022 End: 12-09-[address] Wei Garsia Work Phone: [facility] Start: 10-11-2022 End: 10-11-2022 ambulatory [facility] Work Phone: Start: 10-11-2022 End: 10-11-2022 Patient encounter procedure [facility] [place] [place] Start: 10-02-2022 End: 10-02-2022 Patient encounter procedure Garret Sanchez MD Work Phone: [facility] Comment on above: Blepharospasm (Prima ry Dx) Start: 09-02-2022 End: 09-02-[address] Wei Garsia Work Phone: [facility] Work Phone: Start: 09-02-2022 End: 09-02-[address] Wei Garsia Work Phone: [facility] Start: 06-07-2022 End: 06-07-[address] Wei Garsia Work Phone: [facility] Start: 11-24-2021 End: 11-24-[address] Wei Garsia Work Phone: [facility] Start: 11-07-2021 End: 11-07-[address] Wei Garsia Work Phone: [facility] Procedures Date Procedure Procedure Detail Performing Clinician [...] 04/13/2025 10:30 AM EDT Procedure Visit [address] [place] [address] [place] [address] Garret Sanchez MD [address] [place] [address] [address] [place], [place] [id number] [facility] Start: 04-04-2025 Influenza vaccination Influenza Vaccine (Season Ended) [facility] Start: 02-14-2025 Evaluation of diagnostic study results [facility] Start: 01-12-2025 End: 01-12-2025 Patient encounter procedure 01/12/2025 10:30 AM EDT Procedure Visit [facility] [address] [place] [address] [place] [id number] [facility] Start: 10-13-2024 End: 10-13-2024 Patient encounter procedure 10/13/2024 1:00 PM EDT Procedure Visit [facility] [address] [place] [address] [place] [phone] [facility] Start: 05-26-2024 End: 05-26-2024 Patient encounter procedure 05/26/2024 11:30 AM EDT Procedure Visit [facility] [address] [place] [address] [place] [phone] Garret Sanchez MD [address] [place] [address] [place], [place] [id number] [facility] Start: 04-04-2024 COVID-19 Vaccine ( season) COVID-19 Vaccine ( season) [facility] Start: 04-04-2024 Influenza vaccination [facility] Start: 03-03-2024 End: 03-03-2024 Patient encounter procedure 03/03/2024 2:00 PM EDT Procedure Visit [facility] [address] [place] [address] [place] [id number] Garret Sanchez MD [address] [place] [address] [place] [address] [facility] Start: 12-03-2023 End: 12-03-2023 Patient encounter procedure 12/03/2023 12:00 PM EDT Procedure Visit [facility] [address] [place] [id number] Garret Sanchez MD [address] [place] [address] [place] [address] [facility] Start: 10-28-2023 [facility] Start: 10-15-2023 End: 10-15-2023 Patient encounter procedure 10/15/2023 11:45 AM EDT Procedure Visit [facility] [address] [place] [address] [place] [phone] Garret Sanchez MD [address] [place] [address] [place] [address] [facility] Start: 07-09-2023 End: 07-09-2023 Patient encounter procedure 07/09/2023 3:00 PM EST Procedure Visit [facility] [address] [place] [address] [place] [phone] Garret Sanchez MD [address] [place] [address] [place] [address] [facility] Start: 04-09-2023 End: 04-09-2023 Patient encounter procedure 04/09/2023 Procedure Visit Neurology Garret Sanchez MD [address] [place] [address] [place] [address] [facility] Start: 04-04-2023 COVID-19 Vaccine ( season) COVID-19 Vaccine ( season) [facility] Start: 04-04-2023 Influenza vaccination Influenza Vaccine (#1) [facility] Start: 01-01-2023 End: 01-01-2023 Patient encounter procedure 01/01/2023 Procedure Visit Neurology Garret Sanchez MD [address] [place] [address] [place] [address] [facility] Start: 02-15-2022 COVID-19 Vaccine (5 - Booster for Moderna series) COVID-19 Vaccine (5 - Booster for Moderna series) [facility] Start: 01-04-2016 DTaP/Tdap/Td Vaccines (2 - Td or Tdap) DTaP/Tdap/Td Vaccines (2 - Td or Tdap) [facility] Start: 2012 RSV Immunization for Adults (1 - 1-dose 75+ series) RSV Immunization for Adults (1 - 1-dose 75+ series) [facility] Start: 2002 Pneumococcal Vaccine: 65+ Years (1 - PCV) Pneumococcal Vaccine: 65+ Years (1 - PCV) [facility] Start: 2002 Pneumococcal Vaccine: 65+ Years (1 of 1 - PCV) Pneumococcal Vaccine: 65+ Years (1 of 1 - PCV) [facility] Start: 1997 RSV Immunization aged 60 or older (1 - 1-dose 60+ series) RSV Immunization aged 60 or older (1 - 1-dose 60+ series) [facility] Start: 11-30-1987 Pneumococcal Vaccine: 50+ Years (1 of 1 - PCV) Pneumococcal Vaccine: 50+ Years (1 of 1 - PCV) [facility] Start: 11-30-1955 Diabetes mellitus screening Diabetes Screening [facility] Start: 1949 Depression Screening Depression Screening [facility] Start: 1935 Lipid panel Lipid Panel [facility] Start: 1935 Medicare Annual Wellness (AWV) Medicare Annual Wellness (AWV) [facility] Start: 1935 Screening for osteoporosis Bone Density Scan [facility] Antibody to lupus La protein measurement [facility] Antibody to SS-A measurement [facility] Cardiac event recording [facility] Centromere protein B Ab [Units/volume] in Serum [facility] Chromatin Ab [Units/volume] in Serum or Plasma [facility] Clam IgE Ab [Units/volume] in Serum [facility] Codfish IgE Ab [Units/volume] in Serum [facility] [place] IgE Ab [Units/volume] in Serum [facility] Cow milk IgE Ab [Units/volume] in Serum [facility] DNA double strand Ab [Units/volume] in Serum [facility] Egg white IgE Ab [Units/volume] in Serum [facility] Yani-1 extractable nuclear Ab [Units/volume] in Serum [facility] Nuclear Ab [Presence ] in Serum [facility] Peanut IgE Ab [Units/volume] in Serum [facility] MACHINE LEARNING INTERN antibody measurement [facility] Scallop RAST [facility] SCL-70 extractable nuclear Ab [Units/volume] in Serum by Immunoassay [facility] Sesame seed RAST [facility] Shrimp IgE Ab [Units/volume] in Serum [facility] Anderson extractable nuclear Ab [Presence] in Serum [facility] Soybean IgE Ab [Units/volume] in Serum [facility] Shipman RAST [facility] Wheat IgE Ab [Units/volume] in Serum [facility] Immunizations Immunization Date Immunization Notes Care Provider Fa cility 05-15-2022 influenza virus vaccine, unspecified formulation Garret Sanchez MD Work Phone: [facility] 09-28-2020 Covid (Moderna) Dr. Wei daigle Work Phone: [facility] 08-31-2020 Covid (Moderna) Dr. Wei daigle Work Phone: [facility] 05-09-2020 influenza, injectabl e, quadrivalent, preservative free [facility] 05-09-2020 influenza, seasonal, injectable Dr. Wei Garsia Work Phone: [facility] Payers Date Payer Category Payer Self-pay [id number] 2010 Commercial Managed C are - O [facility] [id number] 2010 Unknown [facility] [id number] 2010-Present [address] [place] [id number] Commercial [id number] 2010 Unknown [id number] 2004 Medicare [id number] 2002 Medicare [id number] Unknown [id number] Unknown [id number] Unknown [id number] Unknown [id number] Unknown [id number] Unknown [id number] Social History Date Type Detail Facility Start: 11-07-2021 End: 11-11-2023 Tobacco smoking status NHIS Unknown if ever smoked [facility] Start: 08-25-2020 None [facility] Start: 08-25-2020 Spouse/ Signif icant Other [facility] Start: 08-13-2018 Non-smoker [facility] Start: 1935 Sex Assigned At Female W [facility] Start: 03-28-2024 Tobacco smoking status NHIS Never smoked tobacco [facility] Start: 01-01-2023 End: 01-12-2025 Alcohol intake Ex-drinker (finding) [facility] Start: 1935 Sex Assigned At Not on file S [facility] Start: 09-22-2022 End: 04-09-2023 Exposure to SARS-CoV-2 (event) Not sure [facility] Start: 01-01-2023 End: 01-12-2025 History of Social function [facility] Start: 01-01-2023 End: 01-12-2025 Tobacco use panel [facility] Start: 03-04-2022 Sex Female (finding) [facility] Clinical Notes 10-02-2022 to 01-12-2025 Viv Valverde [...] MD Ordering Provider: Garret Sanchez MD ND: [id number] (1) and [id number] (1) Lot#: [id number] (1), [id number] (1) Supervisor Painting Department: [employer] Patient Supplied?: No DEPARTMENT OF NEUROLOGY [...] 2. L Frontalis 10 units 3. R Swimming Teacher 10 units 4. L Swimming Teacher 10 units 5. Right superior eyelid 7 [...] Garret Sanchez MD documented in this encounter [facility] 01-12-2025 Note DEPARTMENT OF NEUROL OGY BOTOX [...] 2. L Frontalis 10 units 3. R Swimming Teacher 10 units 4. L Swimming Teacher 10 units 5. Right superior eyelid 7 [...] expectations reviewed in detail. Garret Sanchez MD [facility] 10-13-2024 History of Presen t illness [...] 2. L Frontalis 10 units 3. R Swimming Teacher 10 units 4. L Swimming Teacher 10 units 5. Right superior eyelid 7 [...] Sanchez MD Ordering Provider: Garret Sanchez MD [facility]: [id number] (x 3) Lot#: [id number] (x 3) Supervisor Painting Department: [employer] Patient Supplied?: No documented in this encounter [facility] 10-13-2024 Note DEPARTMENT OF NEUROL OGY BOTOX [...] 2. L Frontalis 10 units 3. R Swimming Teacher 10 units 4. L Swimming Teacher 10 units 5. Right superior eyelid 7 [...] expectations reviewed in detail. Garret Sanchez MD [facility] 07-07-2024 History of Presen t illness [...] 2. L Frontalis 10 units 3. R Swimming Teacher 10 units 4. L Swimming Teacher 10 units 5. Right superior eyelid 7 [...] Units Route IntraMUSCular Site Other Administered By [facility] Ordering Provider: Garret Sanchez MD [facility]:[id number] x3 Lot#: [id number] x3 Supervisor Painting Department: [employer] Patient Supplied?: no, buy and bill documented in this encounter [facility] 07-07-2024 Note DEPARTMENT OF NEUROL OGY BOTOX [...] 2. L Frontalis 10 units 3. R Swimming Teacher 10 units 4. L Swimming Teacher 10 units 5. Right superior eyelid 7 [...] expectations reviewed in detail. Garret Sanchez MD [facility] 03-03-2024 History of Presen t illness [...] 2. L Frontalis 10 units 3. R Swimming Teacher 10 units 4. L Swimming Teacher 10 units 5. Right superior eyelid 7 [...] Units Route IntraMUSCular Site Other Administered By [facility] Ordering Provider: Garret Sanchez MD [facility]:[id number] x3 Lot#: [id number] [id number] Supervisor Painting Department: [employer] Patient Supplied?: No, buy and bill documented in this encounter [facility] 03-03-2024 Note DEPARTMENT OF NEUROL OGY BOTOX [...] 2. L Frontalis 10 units 3. R Swimming Teacher 10 units 4. L Swimming Teacher 10 units 5. Right superior eyelid 7 [...] expectations reviewed in detail. Garret Sanchez MD [facility] 02-16-2024 Telephone encount er Note error [facility] 02-16-2024 Miscellaneous Notes Formattin g of this note might be different from the original. error documented in this encounter [facility] 12-03-2023 History of Presen t illness Narrative [...] 2. L Frontalis 10 units 3. R Swimming Teacher 10 units 4. L Swimming Teacher 10 units 5. Right superior eyelid 7 [...] Units Route IntraMUSCular Site Other Administered By [facility] Ordering Provider: Garret Sanchez MD [facility]:[id number] x3 Lot#: [id number] [id number] Supervisor Painting Department: [employer] Patient Supplied?: No, buy and bill documented in this encounter [facility] 10-15-2023 History of Presen t illness Narrative Patient presented to the neurology clinic for Botox injection for her dystonia. Unfortunately patient had developed a severe rash extending to both zygomatic regions. Therefore, we are not going to be able to perform Botox injections. Patient has been rescheduled for her usual treatment in 3 weeks. Thank you. GARRET SANCHEZ MD documented in this encounter [facility] 07-09-2023 History of Presen t illness Narrative [...] 2. L Frontalis 10 units 3. R Swimming Teacher 10 units 4. L Swimming Teacher 10 units 5. Right superior eyelid 7 [...] SANCHEZ MD Ordering Provider: GARRET SANCHEZ MD [facility]: [id number] x3 Lot#: [id number] [id number] Supervisor Painting Department: [employer] Patient Supplied?: No documented in this encounter [facility] 04-09-2023 History of Presen t [...] 2. L Frontalis 10 units 3. R Swimming Teacher 10 units 4. L Swimming Teacher 10 units 5. Right superior eyelid 7 [...] GARRET SANCHEZ MD documented in this encounter [facility] 04-09-2023 History of Presen t [...] 2. L Frontalis 10 units 3. R Swimming Teacher 10 units 4. L Swimming Teacher 10 units 5. Right superior eyelid 7 [...] SANCHEZ MD Ordering Provider: GARRET SANCHEZ MD [facility]: [id number], [id number] Lot#: [id number] Supervisor Painting Department: [employer] Patient Supplied?: No documented in this encounter [facility] 01-01-2023 History of Presen t illness Narrative [...] 2. L Frontalis 10 units 3. R Swimming Teacher 10 units 4. L Swimming Teacher 10 units 5. Right superior eyelid 7 [...] MD Ordering Provider: GARRET SANCHEZ MD [place]: [id number] Lot#: [id number] Supervisor Painting Department: [employer] Patient Supplied?: No Administrations This Visit onabotulinumtoxin A (BOTOX) injection 200 Units Admin Date 01/01/23 Action Given Dose 200 Units Route IntraMUSCular Site Other Administered By GARRET SANCHEZ MD Ordering Provider: GARRET SANCHEZ MD [facility]: [id number] Lot#: [id number] Supervisor Painting Department: [employer] Patient Supplied?: No documented in this encounter [facility] 10-02-2022 History of Presen t illness Narrative [...] 2. L Frontalis 10 units 3. R Swimming Teacher 10 units 4. L Swimming Teacher 10 units 5. Right superior eyelid 7 [...] Sanchez MD Ordering Provider: Garret Sanchez MD [facility]:[id number] Lot#: [id number] Supervisor Painting Department: [employer] Patient Supplied?: No documented in this encounter [facility] Evaluation note Diagnosis Onset Date Essential hypertension chron ic Nonrheumatic mitral (valve) prolapse chronic Paroxysmal atrial fibrillation chronic SVT (supraventricular tachycardia) [facility] Work Phone: Evaluation note* Diagnosis Onset Date Resolution Status HLD (hyperlipidemia) acute Essential hypertension chron ic Nonrheumatic mitral (valve) prolapse chronic Paroxysmal atrial fibrillation chronic SVT (supraventricular tachycardia) [facility] Work Phone: Evaluation noteNo assessment information available [facility] Work Phone: Evaluation note* Diagnosis Blepharospasm- Primary [facility]* Diagnosis Cervical dystonia- Primary Spasmodic torticollis documented [facility]* Diagnosis Cervical dystonia- Primary Spasmodic torticollis documented [facility]* Diagnosis Cervical dystonia- Primary Spasmodic torticollis [facility]* Diagnosis Cervical dystonia- Primary Spasmodic torticollis [facility] Diagnosis Onset Date Resolution Status HLD (hyperlipidemia) acute Essential hypertension chron ic Paroxysmal atrial fibrillation chronic [facility] Work Phone: Evaluation note* Diagnosis Cervical dystonia- Primary Spasmodic torticollis [facility] Diagnosis Blepharospasm of both eyes- Primary Torticollis Torticollis, unspecified [facility] Diagnosis Blepharospasm- Primary [facility] Diagnosis Blepharospasm of both eyes- Primary [facility]* Diagnosis Blepharospasm of both eyes- Primary Torticollis Torticollis, unspecified Cervical dystonia Spasmodic torticollis [facility] Diagnosis Onset Date Resolution Status Admit Date Carotid stenosis, left acute Ju ly 2024 1:48pm Dizziness acute February 14 1:48pm HLD (hyperlipidemia) acute February 14, 2025 1:48pm Essential hypertension chronic Ju ly 2024 1:48pm Nonrheumatic mitral (valve) prolapse chronic February 14, 2025 1:48pm Paroxysmal atrial fibrillation chron ic February 14, 2025 1:48pm [facility] Work Phone: Reason for referral (narrative)No [facility] for [facility]: Chief Complaint and Reason for Visit Chief Complaint 6 M FU e order Reason for Visit Essential hypertensi on Nonrheumatic mitral (valve) prolapse Paroxysmal atrial fibrillation SVT (supraventricular tachycardia) Chief Complaint 6 M FU Reason for Visit HLD (hyperlipidemia) Essential hypertension Nonrheumatic mitral (valve) prolapse Paroxysmal atrial fibrillation SVT (supraventricular tachycardia) Chief Complaint ADD CXR - COUGH, PSYCHIATRIC NP CKLES Chief Complaint ADD CXR - COUGH, PSYCHIATRIC NP CKLES 6 M FU INT LABS Reason [...] January 05, 2021 1 1:30am Power of Clinical Research Spec Yes January 05, 2021 11:30am Advance Directive Response Recorded Date/ Time Living Will Yes January 05, 2021 1 0:30am Power of Clinical Research Spec Yes January 05, 2021 10:30am Reason for Referral Specialty Diagnoses / Procedures Referred By Contac t Referred To Contact Diagnoses Blepharospasm Diana Hernandez, PRINT OPERATOR - ESL INSTRUCTOR [address] [place] [address] Referral ID Status Reason Start Date Expiration Date V isits Requested Visits Authorized [id number] Pending Review 01/01/2023 06/30/2023 1 1 Specialty Diagnoses / Procedures Referred By Contac t Referred To Contact Diagnoses Cervical dystonia Garret Sanchez MD [address] [place] [address] [place] [address] Referral ID Status Reason Start Date Expiration Date V isits Requested Visits Authorized [id number] Pending Review 04/09/2023 10/06/2023 1 1 Referral ID Status Reason Start Date Expiration Date V isits Requested Visits Authorized [id number] Pending Review 07/09/2023 01/05/2024 1 1 Specialty Diagnoses / Procedures Referred By Contac t Referred To Contact Diagnoses Cervical dystonia Diana Hernandez, PRINT OPERATOR - ESL INSTRUCTOR [address] [place] [address] Referral ID Status Reason Start Date Expiration Date V isits Requested Visits Authorized [id number] Pending Review 12/03/2023 11/27/2024 1 1 Referral ID Status Reason Start Date Expiration Date V isits Requested Visits Authorized [id number] Pending Review 03/03/2024 02/26/2025 1 1 Referral ID Status Reason Start Date Expiration Date V isits Requested Visits Authorized [id number] Pending Review 10/02/2022 03/31/2023 1 1 Summary [...] Referrin g Provider Active Aftab H Roof MANAGER PROGRESSIVE CARE, MANAGER PROGRESSIVE CARE-C Attending Provider Active Team Status: Inactive Member Role Status Dates Dr. Wei Garsia , DO Primary Care Prov ider, Attending Provider, Referring Provider Active Afatb Patton MANAGER PROGRESSIVE CARE, MANAGER PROGRESSIVE CARE-C Other Provider Active Computer Repair Technician Relationship Specialty Start Date End Date Wei Garsia [address] [place] [phone] PCP - General 01/19/20 Computer Repair Technician Relationship Specialty Start Date End Date Wei Garsia [address] [place] [address] PCP - General 01/19/20 Computer Repair Technician Relationship Specialty Start Date End Date Wei Garsia [address] [place] [address] PCP - General 01/19/20 Computer Repair Technician Relationship Specialty Start Date End Date Wei Garsia [address] [place] [address] PCP - General 01/19/20 Team Status: Inactive Member Role Status Dates Dr. Wei Garsia DO Primary Care Provider, Attendin g Provider Active Computer Repair Technician Relationship Specialty Start Date End Date Wei Garsia [address] [place] [phone] PCP - General 01/19/20 Team Status: Inactive [...] Tavarez MD Attending Provider, Referring Provider Active Computer Repair Technician Relationship Specialty Start Date End Date Wei Garsia [address] [place] [phone] PCP - General 01/19/20 Computer Repair Technician Relationship Specialty Start Date End Date Wei Garsia [address] [place] [phone] PCP - General 01/19/20 Computer Repair Technician Relationship Specialty Start Date End Date Wei Garsia [address] [place] [phone] PCP - General 01/19/20 Computer Repair Technician Relationship Specialty Start Date End Date Wei Garsia [address] [place] [phone] PCP - General 01/19/20 Computer Repair Technician Relationship Specialty Start Date End Date Wei Garsia [address] [place] [phone] PCP - General 01/19/20 Team Status: Active [...] 2025 End: February 14, 2025 Aftab Patton MANAGER PROGRESSIVE CARE, MANAGER PROGRESSIVE CARE-C Attending Provider Active S tart: February 14, 2025 End: February 14, 2025 Reason for Visit (unrecogniz ed section and content) Reason Comments Procedure Specialty Diagnoses / Procedures Referred By Contac t Referred To Contact Diagnoses Blepharospasm of both eyes Torticollis Garret Sanchez MD [address] [place] [address] [place] [address] Phone: tel: fax: Referral ID Status Reason Start Date Expiration Date V isits Requested Visits Authorized [id number] Pending Review 07/07/2024 07/02/2025 1 1 Reason Comments Procedure Botox- Cervical Dyst onia Specialty Diagnoses / Procedures Referred By Contac t Referred To Contact Diagnoses Blepharospasm Diana Hernandez, PRINT OPERATOR - FARTUN [address] [place] [address] [place] [address] Referral ID Status Reason Start Date Expiration Date V isits Requested Visits Authorized [id number] Pending Review 01/01/2023 06/30/2023 1 1 Reason Comments Procedure Botox Specialty Diagnoses / Procedures Referred By Contac t Referred To Contact Diagnoses Cervical dystonia Garret Sanchez MD [address] [place] [address] [place] [address] Referral ID Status Reason Start Date Expiration Date V isits Requested Visits Authorized [id number] Pending Review 04/09/2023 10/06/2023 1 1 Referral ID Status Reason Start Date Expiration Date V isits Requested Visits Authorized [id number] Pending Review 07/09/2023 01/05/2024 1 1 Specialty Diagnoses / Procedures Referred By Contac t Referred To Contact Diagnoses Cervical dystonia Diana Hernandez, PRINT OPERATOR - ESL INSTRUCTOR [address] [place] [address] Referral ID Status Reason Start Date Expiration Date V isits Requested Visits Authorized [id number] Pending Review 12/03/2023 11/27/2024 1 1 Reason Onset Date Comments Error (VOID this visit) 02/16/2024 Referral ID Status Reason Start Date Expiration Date V isits Requested Visits Authorized [id number] Pending Review 03/03/2024 02/26/2025 1 1 Reason Comments Procedure botox Referral ID Status Reason Start Date Expiration Date V isits Requested Visits Authorized [id number] Pending Review 10/02/2022 03/31/2023 1 1 Specialty Diagnoses / Procedures Referred By Contac t Referred To Contact Diagnoses Blepharospasm of both eyes Diana Hernandez, PRINT OPERATOR - ESL INSTRUCTOR [address] [place] [address] Phone: tel: fax: Referral ID Status Reason Start Date Expiration Date V isits Requested Visits Authorized [id number] Pending Review 10/13/2024 10/08/2025 1 1 Specialty Diagnoses / Procedures Referred By Contac t Referred To Contact Diagnoses Blepharospasm of both eyes Torticollis Cervical dystonia Diana Hernandez, PRINT OPERATOR - ESL INSTRUCTOR [address] [place] [address] Phone: tel: fax: Referral ID Status Reason Start Date Expiration Date V isits Requested Visits Authorized [id number] Pending Review 01/12/2025 01/07/2026 1 1 INFORMATION SOURCE (unrecogn ized section and content) DATE CREATED AUTHOR 01/14/2025 [facility] [employer] [facility] DATE CREATED AUTHOR AUTHOR'S ORGANIZ ATION 03/21/2025 [facility] FOR RECORDS PERTAINING TO PATIENTS WHO ARE [...] BE BASED ON THE PRIMARY CLINICAL RECORDS. [facility] [employer], [facility]. provides no warranty or guarantee of the accuracy or completeness of information in this document.
--- NOTE | 2025-04-10 15:13 | CDU_ITS ---
Reason For Study Reason For Study: Carotid Stenosis Rt. Velocities/BP Lt. Velocities/BP Prox CCA 50/9 cm/sec. Prox CCA 47/9 cm/sec. Mid CCA 59/8 cm/sec. Mid CCA 50/10 cm/sec. Dist CCA 52/10 cm/sec. Dist CCA 50/8 cm/sec. Prox ICA 45/10 cm/sec. Prox ICA 110/29 cm/sec. Mid ICA 88/25 cm/sec. Mid ICA 114/30 cm/sec. Dist ICA 167/35 cm/sec. Dist ICA 99/19 cm/sec. Rt. ICA/CCA = 2.8. Lt. ICA/CCA = 2.3. Prox ECA 55/3 cm/sec. Prox ECA 64/5 cm/sec. Rt. Vert. 66/11 cm/sec. Lt. Vert. 80/15 cm/sec. Right Extracranial There is heterogeneous, irregular atherosclerotic plaque noted in the right common carotid artery. There is heterogeneous, irregular atherosclerotic plaque noted in the right internal carotid artery. The right internal carotid artery is very tortuous. There is heterogeneous, irregular atherosclerotic plaque noted in the right external carotid artery. Antegrade flow is noted in the right vertebral artery. Left Extracranial There is heterogeneous, irregular atherosclerotic plaque noted in the left common carotid artery. There is heterogeneous, irregular atherosclerotic plaque noted in the left internal carotid artery. The left internal carotid artery is very tortuous. There is heterogeneous, irregular atherosclerotic plaque noted in the left external carotid artery. Antegrade flow is noted in the left vertebral artery. Procedure Carotid Duplex 11674. This is a Carotid Duplex examination using B-mode, color flow and specral Doppler. Exam performed portable in patient room. VL/Carotid Duplex Ultrasound Interpretation Summary Moderate (50-69%) stenosis right extracranial internal carotid. Mild (<50%) stenosis left extracranial internal carotid. Patent and antegrade vertebrals bilaterally. Ordering Physician: Zena Chen Referring Physician: Antonio Garsia Performed By: Erendira Patton, HESHAM, RVT
[2025-04-10 15:14] LABS: Troponin T High Sens 2 HR 24 ng/L (<=14)
--- NOTE | 2025-04-10 15:16 | ECHOD_ITS ---
Reason For Study Reason For Study: TIA/CVA` Procedure This was a 2D Doppler, Color Flow transthoracic echocardiogram. Exam performed portable in patient room. Left Ventricle Normal LV size. Mild concentric left ventricular hypertrophy. The left ventricular ejection fraction is 60 %. Stage 1 diastolic dysfunction. No regional wall motion abnormalities noted. Right Ventricle Normal RV size. Normal systolic function. Atria The left atrium is mildly enlarged. Normal right atrium. Mitral Valve Mild mitral annular calcification. Mild-Moderate (1-2+) mitral valve insufficiency. Tricuspid Valve Normal tricuspid valve. Mild (1+) tricuspid valve insufficiency. Pulmonary artery systolic pressure is 26 mmHg. Aortic Valve Trisinus/trileaflet aortic valve. Pulmonic Valve Normal pulmonic valve. Great Vessels Normal sized aortic root. Pericardium/Pleural No pericardial effusion. MMode/2D Measurements & Calculations LVIDd: 4.9 cm IVSd: 1.2 cm Ao root diam: 3.1 cm LVIDs: 3.2 cm LVPWd: 1.1 cm RVDd: 3.1 cm FS: 33.1 % LAV(MOD-bp): 70.3 ml LVAd ap4: 20.6 cm2 SV(MOD-sp4): 31.0 ml LAV(MOD-bp) Indexed: 37.7 ml/m2 LVLd ap4: 6.9 cm SI(MOD-sp4): 16.6 ml/m2 LAV(MOD-sp2): 72.6 ml EDV(MOD-sp4): 52.6 ml LAV(MOD-sp4): 66.8 ml EDV(sp4-el): 52.4 ml LVAs ap4: 11.7 cm2 LVLs ap4: 5.7 cm ESV(MOD-sp4): 21.5 ml ESV(sp4-el): 20.2 ml EF(MOD-sp4): 59.0 % EF(sp4-el): 61.5 % SV(sp4-el): 32.2 ml LA A4 area: 22.8 cm2 LA dimension(2D): 4.1 cm RA A4 area: 15.3 cm2 TAPSE: 1.7 cm Time Measurements MV dec time: 0.31 sec Doppler Measurements & Calculations MV E max jefferson: 66.1 cm/sec Lat Peak E' Jefferson: 7.5 cm/sec Med Peak E' Jefferson: 4.1 cm/sec MV A max jefferson: 85.9 cm/sec E/E' lat: 8.8 E/E' med: 16.0 MV E/A: 0.77 MV V2 max: 96.0 cm/sec MV P1/2t max jefferson: 72.3 cm/sec Ao V2 max: 113.7 cm/sec MV max P.7 mmHg MV P1/2t: 107.0 msec Ao max P.2 mmHg MV V2 mean: 46.0 cm/sec Ao V2 mean: 78.4 cm/sec MV mean P.0 mmHg MV dec slope: 197.8 cm/sec2 Ao mean P.8 mmHg MV V2 VTI: 33.8 cm MVA(P1/2t): 2.1 cm2 Ao V2 VTI: 30.7 cm AV (velocity ratio): 0.69 LV V1 max: 78.2 cm/sec MR max jefferson: 590.1 cm/sec PA V2 max: 77.9 cm/sec LV V1 max P.4 mmHg MR max P.3 mmHg PA V2 mean: 55.6 cm/sec LV V1 mean P.2 mmHg LV V1 mean: 50.8 cm/sec LV V1 VTI: 21.1 cm TR max jefferson: 238.3 cm/sec TR max P.7 mmHg ECHO/Echo Complete Interpretation Summary The left ventricular ejection fraction is 60 %. Stage 1 diastolic dysfunction. Mild concentric left ventricular hypertrophy. The left atrium is mildly enlarged. Mild mitral annular calcification. Mild (1+) tricuspid valve insufficiency. Mild-Moderate (1-2+) mitral valve insufficiency. Ordering Physician: Zena Chen Performed By: Glen Arteaga RCS
[2025-04-10 16:55] LABS: Troponin T High Sens 4 HR 25 ng/L (<=14)
[2025-04-10] MEDS: MELATONIN 10 MG TABLET PO (21:12)
[2025-04-10] MEDS: APIXABAN 2.5 MG TABLET (WCH) PO (21:12)
[2025-04-11] VITALS (7 sets, daily range): BP systolic 178–196; BP diastolic 56–79; PULSE 60–94; RESP 1–17; TEMP 36.4–36.6; O2SAT 94–97; BMI 25.9
[2025-04-11 05:50] LABS: Hematocrit 38.1 % (37-47); Hemoglobin 11.9 g/dL (12.0-15.0); Immature Granulocytes Count 0.020 X10^3/uL (0.0-0.0); Mean Corp Hgb Conc 31.2 g/dL (32-36); Mean Corpuscular Volume 89.9 fL (81-99); Mean Platelet Vol. 9.6 fl (6.2-12.0); NRBC Flagged by Analyzer 0 % (0-5); Platelet Count 224 K/mm3 (150-450); RBC Distribution Width CV 14.1 % (11.6-14.6); RBC Distribution Width SD 46.3 fl (35.1-43.9); Red Blood Count 4.24 M/mm3 (4.2-5.4); White Blood Count 7.1 K/mm3 (4.4-11.0)
[2025-04-11 06:09] LABS: Anion Gap 10 (5-15); BUN 31 mg/dL (4-19); BUN/Creat Ratio 28.4 RATIO (10-20); Calcium,Total 9.5 mg/dL (7.6-11.0); Carbon Dioxide 25.0 mmol/L (21.0-32.0); Chloride 106 mmol/L (98-108); Cholesterol 120 mg/dL (<=200); Estimated Creatinine Clearance 38.48 ml/min (50-250); Glucose 114 mg/dL (70-99); Low Density Lipoprotein Calc. 47 mg/dL; Potassium 4.6 mmol/L (3.3-5.1); Triglycerides 92 mg/dL; Very Low Density Lipoprotein 18 mg/dL (5-40); cholesterol:hdl ratio screen 2.21
--- NOTE | 2025-04-11 09:00 | MRI_ITS ---
PROCEDURE: BRAIN WITHOUT CONTRAST N/A REASON FOR EXAM: STROKE LIKE SYMPTOMS TECHNIQUE: Procedure Code: MRIBR Modality: MR Procedure: BRAIN WITHOUT CONTRAST Multiplanar and multisequence images were obtained. COMPARISON: April 10, 2025 FINDINGS: Brain: No evidence of acute ischemia. T2 prolongation is seen in the periventricular white matter, deep white matter and subcortical white matter of the frontal and parietal lobes. Ventricles: No hydrocephalus. Uenp-cx-azofvvhz volume loss. Major Intracranial Vessels: Correlate with recent CTA of 1 day prior. Flow voids are unremarkable. Sinuses: Clear. Mastoids: Clear MRI/Brain without Contrast IMPRESSION: 1. No evidence of acute ischemia. 2. Chronic microvascular ischemic changes and volume loss. Reading Location: [id number]
--- NOTE | 2025-04-11 09:55 | PCM.PN.HOSP ---
Reason for Visit Chief Complaint: syncope Subjective Subjective Still with paraesthesias in 2nd and 3rd fingers of right hand Objective Data Objective Data Vital Signs: Vital Signs Temp Pulse Resp BP Pulse Ox O2 Del Method 36.4 C L 60 1 L 196/56 H 97 Room Air 04/11/25 07:25 04/11/25 07:25 04/11/25 07:25 04/11/25 07:25 04/11/25 07:25 04/11/25 07:25 Oxygen Delivery Method Room Air Weight: 75.2 kg Body Mass Index (BMI) 25.9 Intake & Output: Intake and Output for Last 24 Hours 04/09/25 04/10/25 04/11/25 23:59 23:59 23:59 Intake Total 350 / 350 Balance 350 / 350 Lab / Micro Data 04/11/25 04:55 04/11/25 04:55 Labs: Laboratory Results - last 24 hr 04/10/25 12:10: POC Glucose 115 H 04/10/25 12:15: Sodium 137, Potassium 4.3, Chloride 102, Carbon Dioxide 24.9, Anion Gap 10, BUN 27 H, Creatinine 1.09, Estim Creat Clear Calc 37.64 L, Est GFR (MDRD) Non-Af 49 L, BUN/Creatinine Ratio 25.1 H, Glucose 123 H, Calcium 9.4, Troponin T High Sens 28 H 04/10/25 12:25: WBC 7.7, RBC 4.47, Hgb 12.6, Hct 39.6, MCV 88.6, MCH 28.2, MCHC 31.8 L, RDW Std Deviation 45.7 H, RDW Coeff of Casi 14.0, Plt Count 234, MPV 9.5, Immature Gran % (Auto) 0.400, Neut % (Auto) 68.5, Lymph % (Auto) 20.7, [place] % (Auto) 8.7, Eos % (Auto) 1.0, Baso % (Auto) 0.7, Absolute Neuts (auto) 5.3, Absolute Lymphs (auto) 1.59, Nucleated RBC % 0, PT 13.9, INR 1.1, APTT 28.8 04/10/25 13:25: Urine Color Yellow, Urine Clarity Sl. Cloudy, Urine pH 7.0, Ur Specific [place] 1.010, Urine Protein 30 H, Urine Glucose (UA) Normal, Urine Ketones Negative, Urine Occult Blood 10 H, Urine Nitrite Positive H, Urine Bilirubin Negative, Urine Urobilinogen Normal, Ur Leukocyte Esterase 500 H, Urine RBC 0 SEEN, Urine WBC 10-25 SEEN, Ur Squamous Epith Cells 0-5 SEEN, Urine Bacteria 1+, Urine Mucus 0 SEEN 04/10/25 14:25: Troponin T Hi Sens 2 Hr 24 H 04/10/25 16:27: Troponin T Hi Sens 4Hr 25 H 04/11/25 04:55: WBC 7.1, RBC 4.24, Hgb 11.9 L, Hct 38.1, MCV 89.9, MCH 28.1, MCHC 31.2 L, RDW Std Deviation 46.3 H, RDW Coeff of Casi 14.1, Plt Count 224, MPV 9.6, Immature Gran % (Auto) 0.300, Neut % (Auto) 47.3, Lymph % (Auto) 38.4, [place] % (Auto) 10.3 H, Eos % (Auto) 3.0, Baso % (Auto) 0.7, Absolute Neuts (auto) 3.4, Absolute Lymphs (auto) 2.73, Nucleated RBC % 0, Sodium 141, Potassium 4.6, Chloride 106, Carbon Dioxide 25.0, Anion Gap 10, BUN 31 H, Creatinine 1.09, Estim Creat Clear Calc 38.48 L, Est GFR (MDRD) Non-Af 49 L, BUN/Creatinine Ratio 28.4 H, Glucose 114 H, Calcium 9.5, Triglycerides 92, Cholesterol 120, LDL Cholesterol, Calc 47, VLDL Cholesterol 18, HDL Cholesterol 54, Cholesterol/HDL Ratio 2.21 Radiography Diagnostic Testing: Radiology Impression Brain CT 04/10/25 12:17 IMPRESSION: Negative for acute intracranial pathology. Findings discussed with referring clinician at the time of the exam. Reading Location: [facility] Head/Neck CTA 04/10/25 12:17 IMPRESSION: Intracranial small-vessel disease and atrophy as above. Negative CTA of the head. Negative for large vessel occlusion. Vascular disease most prominent in the left proximal internal carotid artery leading to 60% stenosis Remainder of the CTA neck negative. Findings discussed with referring clinician at the time of the exam. Reading Location: [facility] Brain MRI 04/11/25 09:00 IMPRESSION: 1. No evidence of acute ischemia. 2. Chronic microvascular ischemic changes and volume loss. Reading Location: [id number] Rhythm Strip Rhythm Strip: Sinus Rhythm Rate: 71 Ectopy: None Physical Exam Const alert and no apparent distress HEENT head/scalp atraumatic and moist oral mucous membranes Resp normal respiratory effort, no retractions, no use of accessory muscles and clear to auscultation bilaterally Cardio regular rate, regular rhythm, S1 normal heart sound and S2 normal heart sound GI normal to inspection, nondistended, normoactive bowel sounds, soft to palpation and non-tender Extremity normal to inspection and full ROM Neuro Sensorium / Orientation: awake and alert Assessment & Plan Assessment/Plan (1) Dizziness: (2) TIA (transient ischemic attack): PLAN: Plan Right hand paresthesia Patient had MRI of the brain that was negative. [facility] teleneurology on consult. With a negative MRI of the brain felt this is not a stroke. They recommended outpatient MRI cervical spine if ongoing symptoms. I personally feel this is more upright more of a carpal tunnel given involving her index and middle finger on her right hand the patient is right-hand dominant and that this was aggravated when she was doing a lot of moving of her home items since moving to [place]. Near syncope Workup has been unremarkable. Possible patient may have had some transient BPPV that caused her to feel dizzy and unwell. I feel the right hand paresthesias are totally unrelated to what caused her to pass out or nearly passed out. This was discussed with the patient and her daughter at bedside. Abnormal urinalysis Equivocal urinalysis. On empiric ceftriaxone. Will DC with a 5-day course of nitrofurantoin. Chronic medical conditions Atrial fibrillation: on metoprolol. WIll hold to allow for permissive hypertension. on eliquis. Hyperlipidemia: On statin DVT prophylaxis: Already on Eliquis CODE STATUS:DNRCCA no intubation NIHSS NIHSS Nursing Documentation NIHSS Nursing Documentation: NIHSS: Ischemic Stroke/TIA Start: 04/10/25 15:14 Text: For PCU Patients: NIH and Neuro Check every 4 Status: Active hours, PRN and with change in RN caregiver. Freq: [id number] Protocol: Activity Type Activity Date Activity User E-sign Co-sign Detail Recorded Client Recorded Date Recorded By Document 04/11/25 07:25 ML desktop 04/11/25 07:53 ML 04/11/25 07:25 NIH Stroke Scale [NIHSS] A score of 0 is normal or asymptomatic . Total possible score is 42. Inpatient: RN or Physician to activate a stroke alert for onset of new stroke symptoms or with NIHSS increase >/= 3 points. Following change in neurological status, NIHSS will be performed per physician order or more frequently PRN. -1a. Level of Consciousness 0 - Alert; keenly responsive -1b. LOC Questions 0 - Answers BOTH questions correctly -1c. LOC Commands 0 - Performs BOTH tasks correctly -2. Best Gaze 0 - Normal -3. Visual 0 - No visual loss -4. Facial Palsy 0 - Normal symmetrical movements -5a. Left Arm 0 - No drift; arm holds 90 ( or 45) degrees for full 10 seconds -5b. Right Arm 0 - No drift; arm holds 90 ( or 45) degrees for full 10 seconds -6a. Left Leg 0 - No drift; leg holds 30- degree position for full 5 seconds -6b. Right Leg 0 - No drift; leg holds 30- degree position for full 5 seconds -7. Limb Ataxia 0 - Absent -8. Sensory 0 - Normal; no sensory loss -9. Best Language 0 - No aphasia; normal -10. Dysarthria 0 - Normal -11. Extinction and Inattention 0 - No abnormality -Total 0 Query Text:A score of 0 is normal or asymptomatic. Total possible score is 42 . ED: Notify Physician for NIHSS increase by > / = 3 points. Inpatient: RN or Physician to activate a stroke alert for NIHSS increase of > / = 3 points. Coma Scale [Assess] -Eye Opening Spontaneous -Motor Obeys Commands -Verbal Oriented [Total] -Coma Scale Total 15
[2025-04-11] MEDS: Cholecalciferol (VIT D3) 25 MCG TABLET (1,000 UNITS) 100 MCG PO (11:11)
[2025-04-11] MEDS: APIXABAN 2.5 MG TABLET (WCH) PO (11:12)
[2025-04-11] MEDS: Magnesium Chloride 64 MG Delay Rel.Tablet 128 MG PO (11:12)
--- NOTE | 2025-04-11 11:43 | CASEMGMT ---
Social Work As per pt's imaging, pt did not have a stroke, so PHQ-9 not completed. LILIAN Benoit
--- NOTE | 2025-04-11 12:49 | NEURO.CONS ---
Assessment and Plan: Neuro Assessment/Plan JORDY ERAZO is a 89 F being evaluated by Teleneurology for syncope and intermittent R arm parasthesia. MRI brain is negative. CTH/CTA also without acute pathology. Exam unremarkable, symptoms have resolved. Not TIA as symptoms have persisted for days and no findings on MRI. Consider cardiac etiology for syncope/near syncope (does have history of pAfib). In terms of paraesthesia, considerations include c-spine disease. Diagnosis: Syncope Plan: - No further inpatient work up - MRI C-spine as an outpaitent - if negative could consider further work up with EMG I personally attended this patient and spent a total time of 31 minutes evaluating this patient including clinical assessment, review of chart, medical history imaging, and determining appropriate treatment and workup. HPI Consult Data Date of Consult: 04/11/25 HPI Narrative HPI Narrative: JORDY ERAZO, is a 89 F with history of TIA, carotid stenosis on the left, hyperlipidemia, aafib and hypertension presenting with paresthesias to her right upper extremity as well as a syncopal episode. Patient reports intermittent right arm paraesthesia for a few days prior to presentation. On Friday she was getting ready to go to [place] but felt lightheaded and had some blurry vision. This persisted so she decided not to drive to [place]. She went to sit down and may have passed of briefly in the chair. She was sitting in her chair for about 2 hours before her daughter came to check on her. SHe was alert but fatigued/weak all over. She presented to the ER where CTH/CTA did not show any new findings - just known moderate L ICA stenosis. UA showed possible UTI. ON LICENSE OF [facility] Medical History Pneumonia COVID-19 UTI (urinary tract infection) SVT (supraventricular tachycardia) Torticollis Blepharospasm GERD (gastroesophageal reflux disease) Nonrheumatic mitral (valve) prolapse Essential hypertension Ventricular ectopy Paroxysmal atrial fibrillation Home Medications ?Medication ?Instructions ?Recorded ?Last Taken ?Type melatonin 10 mg capsule 10 mg PO QHS 01/15/17 08/07/18 History digoxin 125 mcg (0.125 mg) tablet 125 mcg PO DAILY #90 tabs 03/05/19 Unknown Rx cholecalciferol (vitamin D3) 25 4,000 unit PO DAILY 01/31/20 Unknown History mcg (1,000 unit) capsule apixaban 2.5 mg tablet (Eliquis) 2.5 mg PO BID #60 tabs 01/06/21 Unknown Rx atorvastatin 10 mg tablet 10 mg PO QHS #30 tabs 01/06/21 Unknown Rx metoprolol succinate 50 mg 50 mg PO DAILY 11/07/21 Unknown History tablet,extended release 24 hr acetaminophen 500 mg tablet 1,000 mg PO QHS PRN fever or pain 02/14/25 Unknown History magnesium 250 mg tablet 500 mg PO DAILY sleep 02/14/25 Unknown History Allergy/AdvReac Type Severity Reaction Status Date / Time bee venom protein (honey bee) Allergy Anaphylaxis Verified 04/10/25 12:04 latex Allergy Rash Verified 04/10/25 12:04 Penicillins Allergy Rash Verified 04/10/25 12:04 Family History Father CHF (congestive heart failure) Surgical History History of knee surgery History of total hysterectomy History of tonsillectomy and adenoidectomy History of lumpectomy of left breast Social History Smoking Status: Never smoker alcohol intake: never substance use type: does not use caffeine: Yes eating out: rarely or never Vital Signs Vital Signs Vital Signs: 04/10/25 13:03 04/10/25 14:06 04/10/25 14:11 Temperature 98.1 F Temperature Source Pulse Rate 69 66 66 Respiratory Rate 14 14 Respiratory Effort Respiratory Depth Respiratory Pattern Blood Pressure 152/111 H 177/88 H 177/88 H Blood Pressure Mean 124 117 117 Blood Pressure Source Blood Pressure Position Blood Pressure Location Pulse Ox 100 97 97 Oxygen Delivery Method 04/10/25 15:10 04/10/25 16:03 04/10/25 17:59 Temperature 98.1 F Temperature Source Temporal Pulse Rate 69 Respiratory Rate 18 Respiratory Effort Normal Non-Labored Respiratory Depth Normal Respiratory Pattern Normal Blood Pressure 173/70 H Blood Pressure Mean 104 Blood Pressure Source Blood Pressure Position Blood Pressure Location Pulse Ox 96 96 Oxygen Delivery Method Room Air Room Air Room Air 04/10/25 18:00 04/10/25 19:25 04/10/25 21:30 Temperature 98.1 F 97.5 F L Temperature Source Temporal Temporal Pulse Rate 65 68 Respiratory Rate 18 16 Respiratory Effort Normal Non-Labored Respiratory Depth Normal Respiratory Pattern Normal Blood Pressure 172/62 H 174/65 H Blood Pressure Mean 98 101 Blood Pressure Source Monitor Blood Pressure Position Semi-Fowlers Blood Pressure Location Left Arm Pulse Ox 95 97 Oxygen Delivery Method Room Air Room Air Room Air 04/10/25 23:25 04/11/25 03:25 04/11/25 07:25 Temperature 97.2 F L 98 F 97.6 F L Temperature Source Temporal Oral Oral Pulse Rate 63 60 60 Respiratory Rate 16 16 1 L Respiratory Effort Respiratory Depth Respiratory Pattern Blood Pressure 138/55 H 178/70 H 196/56 H Blood Pressure Mean 82 106 102 Blood Pressure Source Monitor Monitor Monitor Blood Pressure Position Left Lateral Supine Semi-Fowlers Blood Pressure Location Right Arm Left Forearm Left Arm Pulse Ox 95 95 97 Oxygen Delivery Method Room Air Room Air Room Air 04/11/25 07:25 04/11/25 11:11 Temperature Temperature Source Pulse Rate 94 Respiratory Rate Respiratory Effort Normal Non-Labored Respiratory Depth Normal Respiratory Pattern Normal Blood Pressure Blood Pressure Mean Blood Pressure Source Blood Pressure Position Blood Pressure Location Pulse Ox Oxygen Delivery Method Room Air Weight Weight: 75.2 kg Body Mass Index (BMI) 25.9 EEG Results Procedure Details EEG Procedure Details: JORDY ERAZO is a 89 year old F with a past medical history of , who presents for evaluation of Electroencephalogram on DATE at TIME Physical Exam Neuro oriented x3 and CN's II-XII intact bilaterally Coordination / Balance: [id number] test normal and [id number] test normal Speech: speech normal Sensory Exam: double simultaneous stimulation for sensation normal Motor Exam: strength 5/5 throughout Lab / Micro Data 04/11/25 04:55 04/11/25 04:55 Labs: Laboratory Results - last 24 hr 04/10/25 12:15: Sodium 137, Potassium 4.3, Chloride 102, Carbon Dioxide 24.9, Anion Gap 10, BUN 27 H, Creatinine 1.09, Estim Creat Clear Calc 37.64 L, Est GFR (MDRD) Non-Af 49 L, BUN/Creatinine Ratio 25.1 H, Glucose 123 H, Calcium 9.4, Troponin T High Sens 28 H 04/10/25 12:25: PT 13.9, INR 1.1, APTT 28.8 04/10/25 13:25: Urine Color Yellow, Urine Clarity Sl. Cloudy, Urine pH 7.0, Ur Specific [place] 1.010, Urine Protein 30 H, Urine Glucose (UA) Normal, Urine Ketones Negative, Urine Occult Blood 10 H, Urine Nitrite Positive H, Urine Bilirubin Negative, Urine Urobilinogen Normal, Ur Leukocyte Esterase 500 H, Urine RBC 0 SEEN, Urine WBC 10-25 SEEN, Ur Squamous Epith Cells 0-5 SEEN, Urine Bacteria 1+, Urine Mucus 0 SEEN 04/10/25 14:25: Troponin T Hi Sens 2 Hr 24 H 04/10/25 16:27: Troponin T Hi Sens 4Hr 25 H 04/11/25 04:55: WBC 7.1, RBC 4.24, Hgb 11.9 L, Hct 38.1, MCV 89.9, MCH 28.1, MCHC 31.2 L, RDW Std Deviation 46.3 H, RDW Coeff of Casi 14.1, Plt Count 224, MPV 9.6, Immature Gran % (Auto) 0.300, Neut % (Auto) 47.3, Lymph % (Auto) 38.4, [place] % (Auto) 10.3 H, Eos % (Auto) 3.0, Baso % (Auto) 0.7, Absolute Neuts (auto) 3.4, Absolute Lymphs (auto) 2.73, Nucleated RBC % 0, Sodium 141, Potassium 4.6, Chloride 106, Carbon Dioxide 25.0, Anion Gap 10, BUN 31 H, Creatinine 1.09, Estim Creat Clear Calc 38.48 L, Est GFR (MDRD) Non-Af 49 L, BUN/Creatinine Ratio 28.4 H, Glucose 114 H, Calcium 9.5, Triglycerides 92, Cholesterol 120, LDL Cholesterol, Calc 47, VLDL Cholesterol 18, HDL Cholesterol 54, Cholesterol/HDL Ratio 2.21 Rhythm Strip Rhythm Strip: Sinus Rhythm Rate: 71 Ectopy: None Imaging Radiology Impression Head/Neck CTA 04/10/25 12:17 IMPRESSION: Intracranial small-vessel disease and atrophy as above. Negative CTA of the head. Negative for large vessel occlusion. Vascular disease most prominent in the left proximal internal carotid artery leading to 60% stenosis Remainder of the CTA neck negative. Findings discussed with referring clinician at the time of the exam. Reading Location: [id number] Brain MRI 04/11/25 09:00 IMPRESSION: 1. No evidence of acute ischemia. 2. Chronic microvascular ischemic changes and volume loss. Reading Location: [id number] Active Medications Active Medications Active Medications: Current Medications Generic Name Dose Route Start Last Admin Trade Name Freq PRN Reason Stop Dose Admin Acetaminophen 1,000 mg 04/10/25 15:01 Acetaminophen 500 Mg Tablet PO QHS PRN fever or pain Acetaminophen 650 mg 04/10/25 15:13 04/10/25 21:12 Acetaminophen 325 Mg Tablet PO 650 mg Q6H PRN PRN Administration Pain 1-10 Or Fever >100.7 Apixaban 2.5 mg 04/10/25 22:00 04/11/25 11:12 Apixaban 2.5 Mg Tablet ([facility]) PO 2.5 mg BID TASIA Administration Aspirin 81 mg 04/11/25 08:00 04/11/25 11:12 Aspirin 81 Mg Tab.Chew PO 81 mg BREAKFAST TASIA Administration Atorvastatin Calcium 40 mg 04/10/25 22:00 04/10/25 21:12 Atorvastatin Calcium 40 Mg Tablet PO 40 mg QHS TASIA Administration Cholecalciferol 100 mcg 04/11/25 10:00 04/11/25 11:11 Cholecalciferol (Vit D3) 25 Mcg Tablet (1,000 Units) PO 100 mcg DAILY TASIA Administration Digoxin 125 mcg 04/11/25 10:00 04/11/25 11:11 Digoxin 125 Mcg Tablet PO 125 mcg DAILY TASIA Administration Hydralazine HCl 5 mg 04/10/25 15:13 Hydralazine 20 Mg/Ml Vial IV 04/11/25 15:14 Q30M PRN maintain BP parameters with HR <60 Ceftriaxone Sodium 1 gm in 50 mls @ 100 mls/hr 04/11/25 10:00 04/11/25 11:12 Rocephin IV 100 mls/hr Q24 TASIA Administration Sodium Chloride 250 mls @ 15 mls/hr 04/10/25 15:46 IV .[id number] PRN Saline Flush Sodium Chloride 250 mls @ 15 mls/hr 04/10/25 15:46 IV .[id number] PRN Additional IVPB Infusion Labetalol HCl 10 - 20 mg 04/10/25 15:13 Labetalol 20 Mg/4 Ml Vial IV 04/11/25 15:14 Q10M PRN PRN maintain BP parameters with HR >/=60 Magnesium Chloride 128 mg 04/11/25 10:00 04/11/25 11:12 Magnesium Chloride 64 Mg Delay Rel.Tablet PO 128 mg DAILY TASIA Administration Melatonin 10 mg 04/10/25 22:00 04/10/25 21:12 Melatonin 10 Mg Tablet PO 10 mg QHS TASIA Administration Nitroglycerin 0.4 mg 04/10/25 15:13 Nitroglycerin (Inpatient Use) 0.4 Mg Tab.Subl SL Q5M PRN CARDIAC/CHEST PAIN Ondansetron HCl 4 mg 04/10/25 15:13 Ondansetron 4 Mg/2 Ml Vial IV Q8H PRN PRN NAUSEA/VOMITING Oxycodone HCl 5 mg 04/10/25 15:13 Oxycodone 5 Mg Tablet PO Q4H PRN PRN Pain Score 4-10 Sodium Chloride 10 - 40 ml 04/10/25 15:46 0.9% Saline Lock 10 Ml Syringe IV UD PRN SALINE FLUSH NIHSS NIHSS Nursing Documentation NIHSS Nursing Documentation: NIHSS: Ischemic Stroke/TIA Start: 04/10/25 15:14 Text: For PCU Patients: NIH and Neuro Check every 4 Status: Active hours, PRN and with change in RN caregiver. Freq: [id number] Protocol: Activity Type Activity Date Activity User E-sign Co-sign Detail Recorded Client Recorded Date Recorded By Document 04/11/25 07:25 ML desktop 04/11/25 07:53 ML 04/11/25 07:25 NIH Stroke Scale [NIHSS] A score of 0 is normal or asymptomatic . Total possible score is 42. Inpatient: RN or Physician to activate a stroke alert for onset of new stroke symptoms or with NIHSS increase >/= 3 points. Following change in neurological status, NIHSS will be performed per physician order or more frequently PRN. -1a. Level of Consciousness 0 - Alert; keenly responsive -1b. LOC Questions 0 - Answers BOTH questions correctly -1c. LOC Commands 0 - Performs BOTH tasks correctly -2. Best Gaze 0 - Normal -3. Visual 0 - No visual loss -4. Facial Palsy 0 - Normal symmetrical movements -5a. Left Arm 0 - No drift; arm holds 90 ( or 45) degrees for full 10 seconds -5b. Right Arm 0 - No drift; arm holds 90 ( or 45) degrees for full 10 seconds -6a. Left Leg 0 - No drift; leg holds 30- degree position for full 5 seconds -6b. Right Leg 0 - No drift; leg holds 30- degree position for full 5 seconds -7. Limb Ataxia 0 - Absent -8. Sensory 0 - Normal; no sensory loss -9. Best Language 0 - No aphasia; normal -10. Dysarthria 0 - Normal -11. Extinction and Inattention 0 - No abnormality -Total 0 Query Text:A score of 0 is normal or asymptomatic. Total possible score is 42 . ED: Notify Physician for NIHSS increase by > / = 3 points. Inpatient: RN or Physician to activate a stroke alert for NIHSS increase of > / = 3 points. Coma Scale [Assess] -Eye Opening Spontaneous -Motor Obeys Commands -Verbal Oriented [Total] -Coma Scale Total 15
[2025-04-11] MEDS: Metoprolol(XL)Succ 50 MG Tablet PO (13:49)
--- NOTE | 2025-04-11 15:30 | CASEMGMT ---
BARBI KIM in to complete HERRING Form with patient, daughter at bedside. BARBI KIM explained HERRIGN form to patient, patient voiced understanding. Pateint signed HERRING form and filed in chart. Patient provided copy of signed HERRING form. BARBI KIM discussed discharge planning with patient. Patient states she is at her baseline and denies needs or help at discharge. Patient had no further questions or concerns.
--- NOTE | 2025-04-11 16:38 | DS.PCM_ITS ---
Providers Date of Admission: 04/10/25 Primary Care Physician: Dr. Antonio Garsia, DO Consultations 04/10/25 15:14 Consult: Tele-Neurology Routine Consulting Provider: [facility] Reason for Consult: Acute Ischemic Stroke/TIA EMERGENT Consult: No MD Notified: Yes Date Notified: 04/10/25 Time Notified: 16:12 Method of Notification: Answering Service Nursing Unit Staff Notify [facility] of Tele-Neurology Consult: Yes Reason For Visit: STROKE LIKE SYMPTONS Diagnosis Discharge Diagnosis (1) Dizziness: Status: Acute Code(s): R42 - Dizziness and giddiness (2) TIA (transient ischemic attack): Status: Acute Code(s): G45.9 - Transient cerebral ischemic attack, unspecified Plan Right hand paresthesia * Patient had MRI of the brain that was negative. * [facility] on consult. With a negative MRI of the brain felt this is not a stroke. They recommended outpatient MRI cervical spine if ongoing symptoms. I personally feel this is more upright more of a carpal tunnel given involving her index and middle finger on her right hand the patient is right-hand dominant and that this was aggravated when she was doing a lot of moving of her home items since moving to [place]. * If persists, may need to consider cock-up wrist splints at night. Recommended avoiding overuse for the time being. Near syncope * Workup has been unremarkable. Possible patient may have had some transient BPPV that caused her to feel dizzy and unwell. I feel the right hand paresthesias are totally unrelated to what caused her to pass out or nearly passed out. This was discussed with the patient and her daughter at bedside. Abnormal urinalysis * Equivocal urinalysis. On empiric ceftriaxone. Will DC with a 5-day course of nitrofurantoin. Hypertension: * urgency * add amlodipine 5mg * follow up with PCP for adjustments, if necessary. Chronic medical conditions * Atrial fibrillation: on metoprolol. n eliquis. * Hyperlipidemia: On statin DVT prophylaxis: Already on Eliquis CODE STATUS:DNRCCA no intubation Medications at Discharge Home Medications melatonin 10 mg capsule 10 mg PO QHS 01/15/17 digoxin 125 mcg (0.125 mg) tablet 125 mcg PO DAILY #90 tabs 03/05/19 cholecalciferol (vitamin D3) 25 mcg (1,000 unit) capsule 4,000 unit PO DAILY 01/31/20 apixaban 2.5 mg tablet (Eliquis) 2.5 mg PO BID #60 tabs 01/06/21 atorvastatin 10 mg tablet 10 mg PO QHS #30 tabs 01/06/21 metoprolol succinate 50 mg tablet,extended release 24 hr 50 mg PO DAILY 11/07/21 acetaminophen 500 mg tablet 1,000 mg PO QHS PRN fever or pain 02/14/25 magnesium 250 mg tablet 500 mg PO DAILY sleep 02/14/25 amlodipine 5 mg tablet 5 mg PO DAILY #30 tabs 04/11/25 nitrofurantoin macrocrystal 100 mg capsule 100 mg PO BID 5 days #10 caps 04/11/25 Hospital Course Procedures 2-D Echocardiogram Summary of Care Provided Minutes Spent on Discharge: 35 Weight / BMI Weight Weight: 75.2 kg Body Mass Index (BMI) 25.9 ABG / Lab / Microbiology Data 04/11/25 04:55 04/11/25 04:55 Laboratory: Laboratory Results - last 24 hr 04/10/25 16:27: Troponin T Hi Sens 4Hr 25 H 04/11/25 04:55: WBC 7.1, RBC 4.24, Hgb 11.9 L, Hct 38.1, MCV 89.9, MCH 28.1, M CHC 31.2 L, RDW Std Deviation 46.3 H, RDW Coeff of Casi 14.1, Plt Count 224, MPV 9.6, Immature Gran % (Auto) 0.300, Neut % (Auto) 47.3, Lymph % (Auto) 38.4, Hall % (Auto) 10.3 H, Eos % (Auto) 3.0, Baso % (Auto) 0.7, Absolute Neuts (auto) 3.4, Absolute Lymphs (auto) 2.73, Nucleated RBC % 0, Sodium 141, Potassium 4.6, Chloride 106, Carbon Dioxide 25.0, Anion Gap 10, BUN 31 H, Creatinine 1.09, E stim Creat Clear Calc 38.48 L, Est GFR (MDRD) Non-Af 49 L, BUN/Creatinine Ratio 28.4 H, Glucose 114 H, Calcium 9.5, Triglycerides 92, Cholesterol 120, LDL Cholesterol, Calc 47, VLDL Cholesterol 18, HDL Cholesterol 54, Cholesterol/HDL Ratio 2.21 Radiography Diagnostic Testing: Radiology Impression Carotid Duplex 04/10/25 15:13 Interpretation Summary Moderate (50-69%) stenosis right extracranial internal carotid. Mild (<50%) stenosis left extracranial internal carotid. Patent and antegrade vertebrals bilaterally. Ordering Physician: Zena Chen Referring Physician: Antonio Garsia Performed By: Erendira Patton, HESHAM, RVT Brain MRI 04/11/25 09:00 IMPRESSION: 1. No evidence of acute ischemia. 2. Chronic microvascular ischemic changes and volume loss. Reading Location: [id number] Instructions DC O2, CPAP, BIPAP Needs Home O2 Discharge instructions: No Meaningful Use Info Meaningful Use Meaningful Use Diagnoses (Choose all that apply): None applicable Discharge Plan Admission Admit Date/Time: 04/10/25 14:06 Primary Reason for Your Visit: Syncope Attending Provider: Shakir Tnioco Primary Care Provider: Antonio Garsia Consulting Providers: Ethan Everett; Yasmin Robb; Lesly Morrell; Ronel Crystal; Dominique Zamudio; Keo Rico; Umm Coppola; Martin Kaye; Terry Uriostegui; Charly Whitney; Kayley Vasques; Jaclyn Carey; Tomas Mitchell; Ada Donovan; Rae Almazan; Dipika Ma; Lester Soria; Dorie Luna; Albert Ahn; Debora Johnson; Ld Edward; Zena Chen Instructions Additional Instructions / Restrictions: You had near syncopal spell unclear why that was possibly you may have had some transient vertigo. Notes of any stroke on the imaging. He also had right hand numbness which I am concerned could be carpal tunnel given the recent moving you been doing. Recommend taking arrest in regards to all that activity for the time being but if your symptoms do persist you may need to have cock up wrist splints at night to help alleviate pressure to help with the carpal tunnel syndrome. Discharge Orders/Prescriptions Prescriptions: New nitrofurantoin macrocrystal 100 mg capsule 100 mg PO BID 5 Days Qty: 10 0RF Rx Instructions: must administer with a meal/food amlodipine 5 mg tablet 5 mg PO DAILY Qty: 30 0RF Continued cholecalciferol (vitamin D3) 25 mcg (1,000 unit) capsule 4,000 unit PO DAILY magnesium 250 mg tablet 500 mg PO DAILY metoprolol succinate 50 mg tablet extended release 24 hr 50 mg PO DAILY acetaminophen 500 mg tablet 1,000 mg PO QHS PRN (Reason: fever or pain) melatonin 10 MG capsule 10 mg PO QHS Patient Comments: sleep Eliquis 2.5 mg Tablet 2.5 mg PO BID Qty: 60 0RF atorvastatin 10 mg tablet 10 mg PO QHS Qty: 30 0RF digoxin 125 mcg tablet 125 mcg PO DAILY Qty: 90 3RF Referrals / Follow Up: Antonio Garsia DO [Primary Care Provider] - Within 2 Weeks Disposition Disposition (needs filled in before D/C Order can be placed): Home, Self Care Charges/Coding Visit Charges Inpatient E&M: [id number] Disch Hosp >30min
== END 2025-04-11 18:08 | disposition home or self-care (01) ==
LOC: ED 12:26 → PCU 14:23
PROVIDERS: Admitting Provider Student in an Organized Health Care Education/Training Program; Emergency Provider Emergency Medicine; PCP Family Medicine
DX: R55 Syncope and collapse (principal); I48.0 Paroxysmal atrial fibrillation; N39.0 Urinary tract infection, site not specified; I10 Essential (primary) hypertension; R20.2 Paresthesia of skin; Z79.01 Long term (current) use of anticoagulants; R29.898 Other symptoms and signs involving the musculoskeletal system; E78.5 Hyperlipidemia, unspecified; Z79.899 Other long term (current) drug therapy; Z66 Do not resuscitate; H53.8 Other visual disturbances; R47.89 Other speech disturbances; K21.9 Gastro-esophageal reflux disease without esophagitis; I08.1 Rheumatic disorders of both mitral and tricuspid valves; I65.23 Occlusion and stenosis of bilateral carotid arteries; R94.31 Abnormal electrocardiogram [ECG] [EKG]
CPT/HCPCS: 36415; 70450; 70496; 70498; 70551; 80048; 80061; 81001; 82962; 84484; 85025; 85610; 85730; 87077; 87086; 87088; 87186; 93005; 93306; 93880; 94762; 96365; 96366; 97802; 99221; 99285; Q9967; A4216; G0378

== ENCOUNTER → 2025-05-12 | Outpatient (CLI) | payer MEDICARE, OTHER, SELFPAY | END | disposition home or self-care (01) | LOC: LABSPEC 12:42 | PROVIDERS: PCP Family Medicine; Visit Provider Family Medicine | DX: R30.0 Dysuria (principal); R35.0 Frequency of micturition | CPT/HCPCS: 87086; 87088; 87186 ==

== ENCOUNTER → 2025-05-23 | Outpatient (CLI) | payer MEDICARE, OTHER, SELFPAY | END | disposition home or self-care (01) | LOC: LABSPEC 12:26 | PROVIDERS: PCP Family Medicine; Referring Provider Family Medicine; Visit Provider Family Medicine | DX: R82.90 Unspecified abnormal findings in urine (principal) | CPT/HCPCS: 87086; 87088; 87186 ==